=== PATIENT | male | born 1975 | race Caucasian/White ===

== ENCOUNTER 2019-09-21 20:37 | Inpatient (IN) | payer OTHER ==
--- OUTSIDE RECORDS SUMMARY | 2019-09-21 20:39 | XMS REPORT ---
:1975 [facility] Organization [facility] Address [address] [place] [address] [address]. [address] [place] [address] Care Team Providers Name Role Phone Unavailable Unavailable Unavailable Problems This patient has no known problems. Allergies, Adverse Reactions, Alerts This patient has no known allergies or adverse reactions. Medications This patient has no known medications.
[2019-09-21] MEDS ORDERED: ALBUTEROL 2.5 MG/3 ML NEB SOL ONE (21:04)
[2019-09-21 21:13] LABS: Absolute Lymphocytes (CBC) 0.6 K/uL (0.7-4.9); Basophils % 1.2 % (0-1.3); Hematocrit 33.6 % (39.6-49.0); Lymphocytes % 8.1 % (15.3-44.8); RBC Red Blood Cell Count 4.88 M/uL (4.33-5.43)
[2019-09-21 21:29] LABS: Protime INR 1.08
[2019-09-21] MEDS ORDERED: LORAZEPAM 1 MG TABLET ONE (21:32)
[2019-09-21 21:34] LABS: ALT/SGPT 15 U/L (12-78); AST/SGOT 7 U/L (15-37); Albumin 3.8 g/dL (3.4-5.0); Alkaline Phosphatase 69 U/L (45-117); BUN Blood Urea Nitrogen 10 mg/dL (7-18); Bicarbonate 24 mmol/L (21-32); Bilirubin Direct 0.2 mg/dL (0-0.2); Bilirubin Total 0.5 mg/dL (0.2-1.0); CKMB Creatine Kinase MB < 1.0 ng/mL (0.3-3.6); Creatine Phosphokinase 56 U/L (39-308); Glucose Level 316 mg/dL (74-106); Protein, Total 8.4 g/dL (6.4-8.2); Sodium Level 134 mmol/L (136-145)
[2019-09-21 21:41] LABS: Platelet Estimate ADEQ; Urine White Blood Cell Casts OK
[2019-09-21 21:42] LABS: Anisocytosis 1+; Blood Morphology Comment NOTED (NOT SEEN); Hypochromasia 1+
[2019-09-21 22:29] LABS: Lipase 98 U/L (73-393); Magnesium 1.7 mg/dL (1.8-2.4); NT PRO-BNP 1178 pg/mL (<125); Troponin (Emerg Dept Use Only) 0.02 ng/mL (0.0-0.045)
[2019-09-21] MEDS ORDERED: BENZONATATE 100 MG CAP PO ONE (22:51)
--- NOTE | 2019-09-21 23:17 | RAD REPORT ---
EXAM DESCRIPTION: RAD - Chest Single View - 09/21/2019 9:28 pm CLINICAL HISTORY: SOB Chest pain. COMPARISON: No comparisons FINDINGS: Portable technique limits examination quality. Mild nonspecific prominence of interstitial lung markings seen. A mild viral pneumonitis or interstit ial pulmonary edema is possible. The heart is upper limit of normal in size. No displaced fractures.
[2019-09-21] MEDS ORDERED: IBUPROFEN 400 MG TAB ONE (23:45)
--- NOTE | 2019-09-21 23:48 | ER ---
Nurse's Notes [facility] Name: Yan Camargo Age: 44 yrs Sex: Male : 1975 Arrival Date: 09/21/2019 Time: 20:38 Bed 6 Private MD: Diagnosis: Unspecified combined systolic (congestive) and diastolic (congestive) heart failure Presentation: 09/21 20:45 Presenting complaint: Patient states: Reports shortness of breath that started ea yesterday morning, pt states " I took all my medicine thinking it would get better but it got worse" Pt reports non productive cough. Transition of care: patient was not received from another setting of care. Onset of symptoms was September 21, 2019. Risk Assessment: Do you want to hurt yourself or someone else? Patient reports no desire to harm self or others. Initial Sepsis Screen: Does the patient meet any 2 criteria? RR > 20 per min. HR > 90 bpm. Does the patient have a suspected source of infection? No. Patient's initial sepsis screen is negative. Care prior to arrival: None. 20:45 Method Of Arrival: Ambulatory ea 20:45 Acuity: MARTIR 3 ea Triage Assessment: 21:09 General: Appears uncomfortable, Behavior is appropriate for age. Pain: Denies pain. ea Respiratory: Reports shortness of breath since yesterday morning, reports SOB gets worse when he coughs Onset: The symptoms/episode began/occurred this morning, the patient has mild shortness of breath. Derm: Skin is pink, warm \\T\\ dry. Historical: - Allergies: 21:15 No Known Allergies; ea - Home Meds: 21:15 ProAir HFA 90 mcg/actuation inhalation HFAA [Active]; nitroglycerin 0.4 mg SL subl as ea needed [Active]; Livalo 4 mg oral tab 1 tab once daily [Active]; Levemir FlexTouch 100 unit/mL (3 mL) subcutaneous inpn [Active]; Ranitidine Oral [Active]; Descovy 200-25 mg oral tab 1 tab once daily [Active]; potassium chloride 10 mEq Oral cpER 1 cap once daily [Active]; metformin 1,000 mg Oral tab 1 tab 2 times per day [Active]; Lasix 10 mg tab Oral 1 tab once daily [Active]; rosuvastatin 40 mg oral tab 1 tab once daily [Active]; promethazine 25 mg Oral tab 1 tab once daily [Active]; rosuvastatin 40 mg oral tab 1 tab once daily [Active]; - PMHx: 21:15 CHF; Diabetes - IDDM; ea - PSHx: 21:15 None; ea - Immunization history:: Adult Immunizations up to date. - Coronavirus screen:: The patient has NOT traveled to [place], [place], or [place] in the past 14 days. - Social history:: Smoking status: Patient reports the use of cigarette tobacco products, smokes one pack cigarettes per day. - Ebola Screening: : No symptoms or risks identified at this time. Screenin:08 Abuse screen: Denies threats or abuse. Nutritional screening: No deficits noted. ea Tuberculosis screening: No symptoms or risk factors identified. Fall Risk IV access (20 points). Assessment: 21:15 General: Appears uncomfortable, Behavior is appropriate for age. Pain: Denies pain. ea Neuro: Level of Consciousness is awake, alert, obeys commands, Oriented to person, place, time, situation. Cardiovascular: Patient's skin is warm and dry. Rhythm is sinus tachycardia. Respiratory: Airway is patent Respiratory effort is even, unlabored, Respiratory pattern is tachypnea Breath sounds with crackles in left posterior lower lobe and right posterior middle lobe. Derm: Skin is pink, warm \\T\\ dry. 21:37 Reassessment: D dimer 742 simon from laboratory called, ED provider aware. rr5 21:53 Reassessment: Patient and/or family updated on plan of care and expected duration. Pain ea level reassessed. Patient is alert, oriented x 3, equal unlabored respirations, skin warm/dry/pink. Pt taken to CT. 22:07 Reassessment: Patient and/or family updated on plan of care and expected duration. Pain ea level reassessed. Patient is alert, oriented x 3, equal unlabored respirations, skin warm/dry/pink. Pt returned from CT. 23:27 Reassessment: Patient and/or family updated on plan of care and expected duration. Pain ea level reassessed. Patient is alert, oriented x 3, equal unlabored respirations, skin warm/dry/pink. 09/22 00:16 Reassessment: Patient and/or family updated on plan of care and expected duration. Pain ea level reassessed. Patient is alert, oriented x 3, equal unlabored respirations, skin warm/dry/pink. Hospitalist at bedside updating pt on plan of care. 01:59 Reassessment: Patient and/or family updated on plan of care and expected duration. Pain ea level reassessed. Patient is alert, oriented x 3, equal unlabored respirations, skin warm/dry/pink. Report called to Urvashi REDDING. 02:12 Reassessment: Patient and/or family updated on plan of care and expected duration. Pain ea level reassessed. Patient is alert, oriented x 3, equal unlabored respirations, skin warm/dry/pink. Pt admitted to fourth floor, pt left ED via wheelchair tolerating well. No s/s of pain or discomfort noted at this time. Vital Signs: 09/21 21:07 BP 147 / 84; Pulse 124; Resp 21; Temp 99.1; Pulse Ox 97% ; Weight 99.79 kg; Height 5 ea ft. 6 in. (167.64 cm); Pain 0/10; 22:36 BP 140 / 76; Pulse 118; Resp 24; Pulse Ox 98% on 2 lpm NC; ea 23:30 Pulse 120; Resp 24; Temp 100.4; ea 09/22 00:05 BP 142 / 88; Pulse 118; Resp 24; Pulse Ox 95% on 2 lpm NC; ea 00:53 Temp 99.3; ea 01:48 BP 111 / 70; Pulse 110; Resp 20; Pulse Ox 95% on R/A; ea 09/21 21:07 Body Mass Index 35.51 (99.79 kg, 167.64 cm) ea ED Course: 09/21 20:38 Patient arrived in ED. jg7 20:47 Dakota Cummins MD is Attending Physician. tw4 21:00 Inserted saline lock: 20 gauge in right antecubital area, using aseptic technique. rr5 Blood collected. 21:04 Mague Colon, VAHID is Primary Nurse. ea 21:07 Triage completed. ea 21:08 Patient has correct armband on for positive identification. Placed in gown. Bed in low ea position. Call light in reach. Side rails up X2. 21:09 Arm band placed on right wrist. Patient placed in an exam room, on a stretcher, on ea pulse oximetry. 21:18 Radiology exam delayed due to lab results not completed at this time. (BUN/Creatinine). mw3 21:18 EKG done, by ED staff, reviewed by Dakota Cummins MD. rr5 21:32 XRAY CXR (1 view) In Process Unspecified. EDMS 23:02 CT Chest For PE Angio In Process Unspecified. EDMS 23:47 Tucker Dixon is Hospitalizing Provider. tw4 09/22 01:43 No provider procedures requiring assistance completed. Patient admitted, IV remains in ea place. Administered Medications: 09/21 21:10 Drug: Albuterol 1.25 mg Route: Inhalation; rr5 21:30 Drug: Ativan 1 mg Route: PO; ea 22:30 Follow up: Response: No adverse reaction; Anxiety decreased ea 22:49 Drug: Tessalon Perle 100 mg Route: PO; rr5 23:30 Follow up: Response: No adverse reaction ea 23:51 Drug: Lasix 40 mg Route: IVP; Site: right antecubital; ea 09/22 01:49 Follow up: Urine output 600 ml; Response: No adverse reaction ea 09/21 23:52 Drug: Motrin 400 mg Route: PO; ea 09/22 01:50 Follow up: Response: No adverse reaction ea Output: 01:49 Urine: 600ml; Total: 600ml. ea Outcome: 09/21 23:48 Decision to Hospitalize by Provider. tw 09/22 01:48 Instructed on the need for admit, Demonstrated understanding of instructions. ea 02:13 Admitted to Med/surg accompanied by tech, via wheelchair, room 426, with chart, Report ea called to Urvashi REDDING 02:13 Condition: stable 02:13 Patient left the ED. ea Signatures: Dispatcher [employer] EDLA Mague Colon RN Dakota Rios ea, MD MD tw4 Inés Branham mw3 Damion Giron RN RN rr5 Julia Delongg7
--- NOTE | 2019-09-21 23:49 | EDPHYS ---
Physician Documentation [facility] Name: Yan Camargo Age: 44 yrs Sex: Male : 1975 Arrival Date: 09/21/2019 Time: 20:38 Bed 6 Private MD: ED Physician Dakota Cummins HPI: 09/22 05:47 This 44 yrs old Male presents to ER via Ambulatory with complaints of Breathing tw4 Difficulty. Historical: - Allergies: 09/21 21:15 No Known Allergies; ea - Home Meds: 21:15 ProAir HFA 90 mcg/actuation inhalation HFAA [Active]; nitroglycerin 0.4 mg SL subl as ea needed [Active]; Livalo 4 mg oral tab 1 tab once daily [Active]; Levemir FlexTouch 100 unit/mL (3 mL) subcutaneous inpn [Active]; Ranitidine Oral [Active]; Descovy 200-25 mg oral tab 1 tab once daily [Active]; potassium chloride 10 mEq Oral cpER 1 cap once daily [Active]; metformin 1,000 mg Oral tab 1 tab 2 times per day [Active]; Lasix 10 mg tab Oral 1 tab once daily [Active]; rosuvastatin 40 mg oral tab 1 tab once daily [Active]; promethazine 25 mg Oral tab 1 tab once daily [Active]; rosuvastatin 40 mg oral tab 1 tab once daily [Active]; - PMHx: 21:15 CHF; Diabetes - IDDM; ea - PSHx: 21:15 None; ea - Immunization history:: Adult Immunizations up to date. - Coronavirus screen:: The patient has NOT traveled to [place], [place], or [place] in the past 14 days. - Social history:: Smoking status: Patient reports the use of cigarette tobacco products, smokes one pack cigarettes per day. - Ebola Screening: : No symptoms or risks identified at this time. ROS: 09/22 05:46 Constitutional: Negative for fever, chills, and weight loss, Eyes: Negative for injury, tw4 pain, redness, and discharge, Neck: Negative for injury, pain, and swelling, Abdomen/GI: Negative for abdominal pain, nausea, vomiting, diarrhea, and constipation, Back: Negative for injury and pain, MS/Extremity: Negative for injury and deformity, Skin: Negative for injury, rash, and discoloration, Neuro: Negative for headache, weakness, numbness, tingling, and seizure. Cardiovascular: Negative for chest pain, edema, orthopnea, palpitations. Respiratory: Positive for dyspnea on exertion, orthopnea, shortness of breath, Negative for cough, hemoptysis, pleurisy. Exam: 05:41 Constitutional: This is a well developed, well nourished patient who is awake, alert, tw4 and in no acute distress. Head/Face: Normocephalic, atraumatic. Chest/axilla: Normal chest wall appearance and motion. Nontender with no deformity. No lesions are appreciated. Cardiovascular: Regular rate and rhythm with a normal S1 and S2. No gallops, murmurs, or rubs. Normal PMI, no JVD. No pulse deficits. 05:41 Back: No spinal tenderness. No costovertebral tenderness. Full range of motion. Skin: Warm, dry with normal turgor. Normal color with no rashes, no lesions, and no evidence of cellulitis. 05:41 Respiratory: mild respiratory distress is noted. Vital Signs: 09/21 21:07 BP 147 / 84; Pulse 124; Resp 21; Temp 99.1; Pulse Ox 97% ; Weight 99.79 kg; Height 5 ea ft. 6 in. (167.64 cm); Pain 0/10; 22:36 BP 140 / 76; Pulse 118; Resp 24; Pulse Ox 98% on 2 lpm NC; ea 23:30 Pulse 120; Resp 24; Temp 100.4; ea 09/22 00:05 BP 142 / 88; Pulse 118; Resp 24; Pulse Ox 95% on 2 lpm NC; ea 00:53 Temp 99.3; ea 01:48 BP 111 / 70; Pulse 110; Resp 20; Pulse Ox 95% on R/A; ea 09/21 21:07 Body Mass Index 35.51 (99.79 kg, 167.64 cm) ea MDM: 09/21 20:47 Patient medically screened. tw4 09/22 05:48 Antibiotic administration: Not indicated. Data reviewed: vital signs, nurses notes. tw4 Counseling: I had a detailed discussion with the patient and/or guardian regarding: the historical points, exam findings, and any diagnostic results supporting the discharge/admit diagnosis. Physician consultation: Tucker Dixon regarding admission, to the telemetry unit. patient's condition, and will see patient. Special discussion: I discussed with the patient/guardian in detail that at this point there is no indication for admission to the hospital. It is understood, however, that if the symptoms persist or worsen the patient needs to return immediately for re-evaluation. 09/21 21:00 Order name: Blood Culture Adult (2) tw4 09/21 21:00 Order name: BMP tw4 09/21 21:00 Order name: CBC with Diff tw4 09/21 21:00 Order name: Ckmb tw4 09/21 21:00 Order name: CPK tw4 09/21 21:00 Order name: D-Dimer tw4 09/21 21:00 Order name: Hepatic Function 09/21 21:00 Order name: Lipase tw4 09/21 21:00 Order name: Magnesium tw4 09/21 21:00 Order name: NT PRO-BNP tw4 09/21 21:00 Order name: PT-INR 4 09/21 21:00 Order name: Ptt, Activated tw4 09/21 21:00 Order name: Troponin (emerg Dept Use Only) tw4 09/21 21:12 Order name: Blood Culture EDMD 09/21 21:12 Order name: Basic Metabolic Panel; Complete Time: 23:41 EDMS 09/21 23:41 Interpretation: Normal except: NA 134; GLUC 316; GFR 63. tw4 09/21 21:12 Order name: CBC with Automated Diff; Complete Time: 23:41 EDMS 09/21 23:41 Interpretation: Normal except: MCV 68.8; HCT 33.6; HGB 9.7; MCH 19.9; MCHC 28.9; RDW tw4 20.2; LYMA 0.6; LYM% 8.1; FLORA% 81.7. 09/21 21:13 Order name: CKMB Creatine Kinase MB; Complete Time: 23:41 EDMS 09/21 21:13 Order name: Creatine Phosphokinase; Complete Time: 23:41 EDMS 09/21 21:13 Order name: D-Dimer; Complete Time: 23:41 EDMS 09/21 23:41 Interpretation: Normal except: D-DIMER 742. tw4 09/21 21:13 Order name: Liver (Hepatic) Function; Complete Time: 23:41 EDMS 09/21 23:41 Interpretation: Normal except: A/G 0.8; GLOB 4.6; TP 8.4; AST 7. tw4 02 21:15 Order name: Protime (+INR); Complete Time: 23:41 EDMS 02 23:41 Interpretation: Normal except: PT 12.7. tw4 09/21 21:15 Order name: PTT, Activated Partial Thromb; Complete Time: 23:41 EDMS 02 21:30 Order name: CBC Smear Scan; Complete Time: 23:41 EDMS 09/21 22:17 Order name: Troponin (Emerg Dept Use Only); Complete Time: 23:41 EDMS 02 21:00 Order name: XRAY CXR (1 view); Complete Time: 23:41 tw4 09/21 21:00 Order name: EKG; Complete Time: 21:15 tw4 09/21 21:00 Order name: Cardiac monitoring; Complete Time: 21:16 tw4 09/21 21:00 Order name: EKG - Nurse/Tech; Complete Time: 21:22 4 09/21 21:00 Order name: IV Saline Lock; Complete Time: 21:16 tw4 02 21:00 Order name: Labs collected and sent; Complete Time: 21:16 4 09/21 21:00 Order name: O2 Per Protocol; Complete Time: 21:16 tw4 09/21 21:00 Order name: O2 Sat Monitoring; Complete Time: 21:16 tw4 09/21 21:00 Order name: CT Chest For PE Angio 09/21 22:17 Order name: NT PRO-BNP; Complete Time: 23:41 EDMS 09/21 23:42 Interpretation: Normal except: NT PRO-BNP 1178. 09/21 22:17 Order name: Magnesium; Complete Time: 23:41 EDMS 09/21 23:42 Interpretation: Within normal limits: MG 1.7. 09/21 22:17 Order name: Lipase; Complete Time: 23:41 EDMS EC:41 Rate is 119 beats/min. Rhythm is regular, Sinus tachycardia. QRS [place] is Normal. [place] tw4 interval is normal. QT interval is normal. No Q waves. T waves are Flattened in leads III, aVL. No ST changes noted. Clinical impression: Abnormal EKG without significant change. Interpreted by me. Reviewed by me. Administered Medications: 09/21 21:10 Drug: Albuterol 1.25 mg Route: Inhalation; rr5 21:30 Drug: Ativan 1 mg Route: PO; ea 22:30 Follow up: Response: No adverse reaction; Anxiety decreased ea 22:49 Drug: Tessalon Perle 100 mg Route: PO; rr5 23:30 Follow up: Response: No adverse reaction ea 23:51 Drug: Lasix 40 mg Route: IVP; Site: right antecubital; ea 09/22 01:49 Follow up: Urine output 600 ml; Response: No adverse reaction ea 09/21 23:52 Drug: Motrin 400 mg Route: PO; ea 09/22 01:50 Follow up: Response: No adverse reaction ea Disposition: 09/21/19 23:48 Hospitalization ordered by Tucker Dixon for Inpatient Admission. Preliminary diagnosis is Unspecified combined systolic (congestive) and diastolic (congestive) heart failure. - Bed requested for Telemetry/MedSurg (Inpatient). - Status is Inpatient Admission. ea - Condition is Stable. - Problem is an ongoing problem. - Symptoms have worsened. Signatures: Dispatcher [employer] EDMS Christal Quinones, RN RN Mague Colon RN RN ea Wadley, Terrence, MD MD tw4 Damion Giron RN RN rr5 Corrections: (The following items were deleted from the chart) 09/21 21:15 21:14 Protime (+INR) ordered. EDMD EDMS 21:15 21:14 PTT, Activated Partial Thromb ordered. EDMD EDMS 22:16 21:13 Lipase ordered. EDMD EDMS 22:16 21:13 Magnesium ordered. EDMD EDMS 22:17 21:13 NT PRO-BNP ordered. EDMD EDMS 22:17 21:14 Troponin (Emerg Dept Use Only) ordered. EDMD EDMD 09/22 01:21 09/21 23:48 Hospitalization Ordered by Tucker Dixon for Inpatient Admission. Preliminary diagnosis is Unspecified combined systolic (congestive) and diastolic (congestive) heart failure. Bed requested for Telemetry/MedSurg (Inpatient). Status is Inpatient Admission. Condition is Stable. Problem is an ongoing problem. Symptoms have worsened. tw4 09/22 02:13 01:21 09/21/2019 23:48 Hospitalization Ordered by Tucker Dixon for Inpatient ea Admission. Preliminary diagnosis is Unspecified combined systolic (congestive) and diastolic (congestive) heart failure. Bed requested for Telemetry/MedSurg (Inpatient). Status is Inpatient Admission. Condition is Stable. Problem is an ongoing problem. Symptoms have worsened. cg
[2019-09-21] MEDS ORDERED: FUROSEMIDE 40 MG/4 ML VIAL ONE (23:50)
--- NOTE | 2019-09-22 00:40 | P.HP ---
Certification for Inpatient Patient admitted to: Inpatient With expected LOS: <2 Midnights Practitioner: I am a practitioner with admitting privileges, knowledge of patient current condition, hospital course, and medical plan of care. Services: Services provided to patient in accordance with Admission requirements found in Title 42 Section 412.3 of the Code of Federal Regulations Patient History Date of Service: 09/22/19 Reason for admission: Shortness of breath History of Present Illness: 44-year-old morbidly obese gentleman with a history of congestive heart failure , unknown EF, diabetes mellitus type 2, presented to the emergency department with a complaint of shortness of breath of onset yesterday. Symptoms also associated with nonproductive cough. Patient denies any chest pain or palpitation. He also reports intermittent wheezing. In the ED, patient noted to be febrile with temperature up to 100.4. Chest x- ray demonstrates some haziness in the bilateral lower lobes, more on the right. No leukocytosis. D-dimer was elevated. Follow up CTA thorax was negative for pulmonary embolism. The patient is hospitalized for further management. Allergies No Known Allergies Allergy (Verified 09/22/19 02:55) Home Medications: Albuterol Sulfate [Proair Hfa] 2 puff IH BID PRN 09/22/19 Aspirin [Aspir-Low] 81 mg PO DAILY 09/22/19 Cyclobenzaprine [Flexeril*] 10 mg PO TID PRN 09/22/19 Dolutegravir Sodium [Tivicay] 50 mg PO DAILY 09/22/19 Empagliflozin [Jardiance] 25 mg PO DAILY 09/22/19 Emtricitabine/Tenofov Alafenam [Descovy 200-25 mg Tablet] 1 tab PO DAILY Ferrous Sulfate [Ferrous Sulfate*] 325 mg PO DAILY 09/22/19 Fluticasone Propionate [Flovent Diskus] 1 inh IH BID PRN 09/22/19 Furosemide [Lasix] 40 mg PO DAILY 09/22/19 Glimepiride 1 mg PO BID 09/22/19 Insulin Detemir [Levemir Flextouch] 20 units SQ BID 09/22/19 Loratadine [Claritin*] 10 mg PO DAILY 09/22/19 Metformin HCl 1,000 mg PO BID 09/22/19 Nitroglycerin 0.4 mg SL [facility] PRN 09/22/19 Potassium Chloride 10 meq PO DAILY 09/22/19 Promethazine HCl 25 mg PO Q6H PRN 09/22/19 Ranitidine [Zantac*] 150 mg PO DAILY PRN 09/22/19 Rosuvastatin Calcium 40 mg PO BEDTIME 09/22/19 Sitagliptin Phosphate [Januvia*] 100 mg PO DAILY 09/22/19 Tramadol HCl [Ultram] 100 mg PO TID PRN 09/22/19 - Past Medical/Surgical History -: CHF -: DM type 2 - Family History Father -: Diabetes, Stroke, Seizures Brother -: Heart disease, Hypertension Mother -: Heart disease Sister -: Diabetes - Social History Smoking Status: Current every day smoker Alcohol use: Yes CD- Drugs: No Place of Residence: Home Review of Systems Other: General: No unintentional weight loss. Eyes: No eye discharge, CVS: No chest pain, no palpitation, no lightheadedness. GI: No abdominal pain, no nausea no vomit, no constipation, no diarrhea. Genitourinary: No dysuria, no urinary frequency, no incontinence, no hematuria. Musculoskeletal: No joint pains, or joint swelling, no gait instability. Neurology: No headache, no asymmetric weakness, no problem with swallowing. Except as documented, all other systems reviewed and negative. Physical Examination - Physical Exam General: Alert, In no apparent distress, Oriented x3, Obese Neck: Supple, JVD not distended Respiratory: Normal air movement, Diminished, Expiratory wheezes Cardiovascular: No edema, Normal S1 S2, Other (Tachycardic, regular rhythm.) Capillary refill: <2 Seconds Gastrointestinal: Normal bowel sounds, Soft and benign, Non-distended, No tenderness Musculoskeletal: No swelling, No erythema Integumentary: No rashes, No erythema Neurological: Normal speech, Normal strength at 5/5 x4 extr - Studies Laboratory Data (last 24 hrs) 09/21/19 21:00: PT Cancelled, INR Cancelled, APTT Cancelled 09/21/19 21:00: Magnesium Cancelled, Lipase Cancelled 09/21/19 21:00: PT 12.7 H, INR 1.08, APTT 25.8 09/21/19 21:00: WBC 7.1, Hgb 9.7 L, Hct 33.6 L, Plt Count 152 09/21/19 21:00: Sodium 134 L, Potassium 4.0, BUN 10, Creatinine 1.24, Glucose 316 H, Magnesium 1.7 L, Total Bilirubin 0.5, AST 7 L, ALT 15, Alkaline Phosphatase 69, Lipase 98 Assessment and Plan - Problems (Diagnosis) (1) Pneumonia Current Visit: Yes Status: Acute (2) CHF (congestive heart failure) Current Visit: Yes Status: Acute (3) DM type 2 (diabetes mellitus, type 2) Current Visit: Yes Status: Chronic (4) Hyperlipidemia Current Visit: Yes Status: Chronic - Plan Place under observation. Start IV Rocephin and Zithromax. Chest physiotherapy Will give extra dose of IV Lasix. Obtain echocardiogram. Supplemental oxygen as needed Bronchodilators. Hold metformin Manage blood sugar with insulin sliding scale. - Advance Directives Does patient have a Living Will: No Does patient have a Durable POA for Healthcare: No
[2019-09-22] MEDS ORDERED: ONDANSETRON 4 MG/2 ML VIAL IV PRN (02:24)
[2019-09-22] MEDS ORDERED: FUROSEMIDE 40 MG/4 ML VIAL IV ONE (02:24)
[2019-09-22] MEDS ORDERED: ALBUTEROL 2.5 MG/3 ML NEB SOL NEB PRN (02:24)
[2019-09-22] MEDS ORDERED: ACETAMINOPHEN 500 MG TAB PO PRN (02:24)
[2019-09-22 02:26] VITALS: BMI 34.6
[2019-09-22] MEDS ORDERED: MAGNESIUM SULFATE 1 gm IVPB 1 GM/100 ML BAG IV ONE (02:53)
[2019-09-22] MEDS: IPRATROPIUM BROM 0.5MG/2.5ML NEB SCH ×5 (03:35→19:50)
[2019-09-22] MEDS: INSULIN -REGULAR HUMAN 50 UNIT/0.5 ML ML SQ SCH ×5 (03:44→21:13)
[2019-09-22] MEDS: GUAIFENESIN/CODEINE 5ML UCUP PO PRN ×2 (04:38→23:46)
--- NOTE | 2019-09-22 06:25 | EKG ---
Test Date: 2019-09-21 Test Time: 21:21:54 [employer] Coordinator: NEO MEASUREMENT RESULTS: Intervals: Rate: 119 NM: 162 QRSD: 70 QT: 330 QTc: 464 [place]: P: 48 NM: 162 QRS: 6 T: 42 INTERPRETIVE STATEMENTS: Sinus tachycardia Possible Left atrial enlargement Anteroseptal infarct, age undetermined Abnormal ECG No previous ECG available for comparison Electronically Signed On 09-22-19 06:24:36 [employer] by Angel Ritchie
[2019-09-22] MEDS ORDERED: FUROSEMIDE 40 MG/4 ML VIAL ONE (06:44)
[2019-09-22] MEDS ORDERED: METOPROLOL TARTRATE 5 MG/5 ML INJ IV STA (06:53)
[2019-09-22] MEDS ORDERED: METOPROLOL TARTRATE 5 MG/5 ML INJ IV ONE (06:59)
--- NOTE | 2019-09-22 07:09 | P.PN ---
Date of Service: 09/22/19 Rapid response called on the patient because he was in acute respiratory distress. On examination Patient sitting on the edge of the bed in respiratory distress, with nebulizer on. Diffuse wheezes heard on auscultation of the lungs. Patient is tachycardic, heart rate in the 130s BP 168/84. Plan: BIPAP Repeat IV Lasix 40 mg x1 dose. IV metoprolol x 1 for hypertension and tachycardia. Nebulizer treatment. Obtain ABG.
[2019-09-22] MEDS: ENOXAPARIN 40 MG/0.4 ML SQ SCH (07:59)
[2019-09-22 08:16] LABS: Arterial Blood Carboxyhemoglob 0.9 % (0-1.5); Blood Gas Oxyhemoglobin 92.2 % (94-97); Blood O2 Saturation 93.4 % (92-98.5)
[2019-09-22] MEDS ORDERED: CEFTRIAXONE 1 GM/NS 50 ML 1 GM/50 ML BAG IV SCH (09:00)
[2019-09-22] MEDS ORDERED: CEFTRIAXONE/SWI 1gm 1 GM/10 ML SYR IVP SCH (09:00)
[2019-09-22] MEDS ORDERED: RANITIDINE 150 MG TABLET PO PRN (10:07)
[2019-09-22] MEDS ORDERED: TRAMADOL HCL 50 MG TAB PO PRN (10:07)
[2019-09-22] MEDS ORDERED: TMP IVPB SCH ×2 (10:16→22:00)
[2019-09-22] MEDS ORDERED: SMZ IVPB SCH ×2 (10:16→22:00)
[2019-09-22] MEDS ORDERED: D5W IVPB SCH (10:16)
--- NOTE | 2019-09-22 10:22 | P.PN ---
Subjective Date of Service: 09/22/19 Chief Complaint: Shortness of breath Subjective: No C/O voiced, New changes (-developed worsneing SOB earliert today , given lasix and feels better now -still midly dyspneic -still feels fatigue) Review of Systems 10-point ROS is otherwise unremarkable Physical Examination - Vital Signs Temperature: 99.2 F Blood Pressure: 133/82 Pulse: 120 Respirations: 28 Pulse Ox (%): 97 - Physical Exam General: Alert, Oriented x3, Cooperative, Mild distress, Obese HEENT: Atraumatic, Normocephalic, PERRLA Neck: Supple, 2+ carotid pulse no bruit Respiratory: Diminished, Crackles/rales, Expiratory wheezes (right base ) Cardiovascular: No edema, Regular rate/rhythm, Normal S1 S2 Gastrointestinal: Normal bowel sounds, Soft and benign, Non-distended Musculoskeletal: No clubbing, No swelling Integumentary: No rashes, No breakdown Neurological: Normal speech, Normal strength at 5/5 x4 extr, Normal tone - Studies Laboratory Data (last 24 hrs) 09/21/19 21:00: PT Cancelled, INR Cancelled, APTT Cancelled 09/21/19 21:00: Magnesium Cancelled, Lipase Cancelled 09/21/19 21:00: PT 12.7 H, INR 1.08, APTT 25.8 09/21/19 21:00: WBC 7.1, Hgb 9.7 L, Hct 33.6 L, Plt Count 152 09/21/19 21:00: Sodium 134 L, Potassium 4.0, BUN 10, Creatinine 1.24, Glucose 316 H, Magnesium 1.7 L, Total Bilirubin 0.5, AST 7 L, ALT 15, Alkaline Phosphatase 69, Lipase 98 Laboratory Last Values WBC 7.1 K/uL (4.3-10.9) 09/21/19 21:00 RBC 4.88 M/uL (4.33-5.43) 09/21/19 21:00 Hgb 9.7 g/dL (13.6-17.9) L 09/21/19 21:00 Hct 33.6 % (39.6-49.0) L 09/21/19 21:00 MCV 68.8 fL (80-100) L 09/21/19 21:00 MCH 19.9 pg (27.0-35.0) L 09/21/19 21:00 MCHC 28.9 g/dL (32.0-36.0) L 09/21/19 21:00 RDW 20.2 % (12.1-15.2) H 09/21/19 21:00 Plt Count 152 K/uL (152-406) 09/21/19 21:00 MPV 9.0 fL (7.6-11.3) 09/21/19 21:00 Neutrophils % 81.7 % (41.7-73.7) H 09/21/19 21:00 Lymphocytes % 8.1 % (15.3-44.8) L 09/21/19 21:00 Monocytes % 8.6 % (3.3-12.3) 09/21/19 21:00 Eosinophils % 0.4 % (0-4.4) 09/21/19 21:00 Basophils % 1.2 % (0-1.3) 09/21/19 21:00 Absolute Neutrophils 5.8 K/uL (1.8-8.0) 09/21/19 21:00 Absolute Lymphocytes 0.6 K/uL (0.7-4.9) L 09/21/19 21:00 Absolute Monocytes 0.6 K/uL (0.1-1.3) 09/21/19 21:00 Absolute Eosinophils 0.0 K/uL (0-0.5) 09/21/19 21:00 Absolute Basophils 0.1 K/uL (0-0.5) 09/21/19 21:00 Hypochromasia 1+ 09/21/19 21:00 Anisocytosis 1+ 09/21/19 21:00 Microcytosis 1+ 09/21/19 21:00 Morphology Comment Noted (NOT SEEN) 09/21/19 21:00 PT 12.7 SECONDS (9.5-12.5) H 09/21/19 21:00 INR 1.08 09/21/19 21:00 APTT 25.8 SECONDS (24.3-36.9) 09/21/19 21:00 D-Dimer 742 FEUng/mL (<500) H* 09/21/19 21:00 pH 7.40 (7.35-7.45) 09/22/19 07:35 pCO2 39.5 mmHG (35-45) 09/22/19 07:35 pO2 83.9 mmHG (75-100) 09/22/19 07:35 HCO3 24.0 mmol/L (22-28) 09/22/19 07:35 Base Excess -0.2 mmol/L 09/22/19 07:35 Oxyhemoglobin 92.2 % (94-97) L 09/22/19 07:35 ABG O2 Sat (Measured) 93.4 % (92-98.5) 09/22/19 07:35 ABG Carboxyhemoglobin 0.9 % (0-1.5) 09/22/19 07:35 ABG Methemoglobin 0.4 % (0-1.5) 09/22/19 07:35 Other Total Hgb 9.6 g/dl (12-18) L 09/22/19 07:35 Inspired O2 40.0 % 09/22/19 07:35 Sodium 134 mmol/L (136-145) L 09/21/19 21:00 Potassium 4.0 mmol/L (3.5-5.1) 09/21/19 21:00 Chloride 101 mmol/L (98-107) 09/21/19 21:00 Carbon Dioxide 24 mmol/L (21-32) 09/21/19 21:00 BUN 10 mg/dL (7-18) 09/21/19 21:00 Creatinine 1.24 mg/dL (0.55-1.3) 09/21/19 21:00 Estimated GFR 63 mL/min (=/>90) L 09/21/19 21:00 Glucose 316 mg/dL (74-106) H 09/21/19 21:00 POC Glucose 399 mg/dl (65-120) H 09/22/19 07:40 Lactic Acid 2.0 mmol/L (0.4-2.0) 09/22/19 09:18 Calcium 8.5 mg/dL (8.5-10.1) 09/21/19 21:00 Magnesium 1.7 mg/dL (1.8-2.4) L 09/21/19 21:00 Total Bilirubin 0.5 mg/dL (0.2-1.0) 09/21/19 21:00 Direct Bilirubin 0.2 mg/dL (0-0.2) 09/21/19 21:00 AST 7 U/L (15-37) L 09/21/19 21:00 ALT 15 U/L (12-78) 09/21/19 21:00 Alkaline Phosphatase 69 U/L (45-117) 09/21/19 21:00 Creatine Kinase 56 U/L (39-308) 09/21/19 21:00 CK-MB (CK-2) < 1.0 ng/mL (0.3-3.6) 09/21/19 21:00 Rapid Troponin I 0.02 ng/mL (0.0-0.045) 09/21/19 21:00 NT-Pro-B Natriuret Pep 1178 pg/mL (<125) H 09/21/19 21:00 Serum Total Protein 8.4 g/dL (6.4-8.2) H 09/21/19 21:00 Albumin 3.8 g/dL (3.4-5.0) 09/21/19 21:00 Globulin 4.6 g/dL (2.3-3.5) H 09/21/19 21:00 Albumin/Globulin Ratio 0.8 (1.1-1.8) L 09/21/19 21:00 Lipase 98 U/L (73-393) 09/21/19 21:00 Assessment & Plan - Problems (Diagnosis) (1) CHF (congestive heart failure) Current Visit: Yes Status: Acute Qualifiers: Heart failure type: end stage Qualified Code(s): I50.84 - End stage heart failure (2) DM type 2 (diabetes mellitus, type 2) Current Visit: Yes Status: Acute (3) Hyperlipidemia Current Visit: Yes Status: Acute (4) Pneumonia Current Visit: Yes Status: Acute Physician Review: Patient Assessed, Agree with Above Assessment and Plan Physician Review Additional Text: # bilateral pneumonia-giving history of HIV possibility of PCP pneumonia considered -will switch antibiotics from Rocephin to Zosyn/Bactrim/Levaquin -follow blood culture -Tera mildly dyspneic, we had duo nebs Q 4 as well as Mucomyst -continue cough regimen -will consult ID -obtain CD4 count # history of CHF-symptoms may be due to pneumonia rather than CHF exacerbation -will continue Lasix but increased to 40 mg b.i.d. for now # Diabetes mellitus-elevated glucose, restart home regimen with insulin and oral hypoglycemics -continue insulin sliding scale -will dose 15 units for glucose of 410 now -may need dose adjustment given IV steroids # HIV -restart home regime now # advanced directives-full code # Dispo- possible hospital stay for more than 48 hr
--- NOTE | 2019-09-22 11:13 | EKG ---
Test Date: 2019-09-22 Test Time: 06:49:01 Museum Educator: KARINA MEASUREMENT RESULTS: Intervals: Rate: 142 AR: 114 QRSD: 86 QT: 302 QTc: 464 Stetson: P: 48 AR: 114 QRS: 0 T: 65 INTERPRETIVE STATEMENTS: Sinus tachycardia Possible Left atrial enlargement Anteroseptal infarct, age undetermined Abnormal ECG Compared to ECG 09/21/2019 21:21:54 No significant changes Electronically Signed On 09-22-19 11:12:52 BOX STAPLER by Angel Ritchie
[2019-09-22] MEDS: levoFLOXacin 750 MG TAB PO SCH (11:24)
[2019-09-22] MEDS: ACETYLCYST 20% 4 ML VIAL IH SCH ×2 (11:45→19:50)
[2019-09-22] MEDS: PIPER/TAZO/NS 3.375gm 3.375 GM/100 ML BAG IVPB SCH ×3 (12:00→23:46)
[2019-09-22] MEDS: FUROSEMIDE 20 MG/ 2ML VIAL IV SCH (16:34)
[2019-09-22] MEDS ORDERED: ROSUVASTATIN 10 MG TAB PO SCH (21:00)
[2019-09-22] MEDS ORDERED: HOME MED 1 EA UNK (Metformin Hcl [Metformin Hcl] 1,000 MG) PO SCH (21:00)
[2019-09-22] MEDS ORDERED: HOME MED 1 EA UNK (Glimepiride [Glimepiride] 1 MG) PO SCH (21:00)
[2019-09-22] MEDS: METFORMIN HCL 500 MG TAB PO SCH ×2 (21:00→21:11)
[2019-09-22] MEDS ORDERED: ROSUVASTATIN CALCIUM 40 MG PO SCH (21:00)
[2019-09-22] MEDS: GLIMEPIRIDE 2 MG TABLET PO SCH (21:11)
[2019-09-22] MEDS: INSULIN GLARGINE 100 UNITS/ML SQ SCH (21:13)
[2019-09-22] MEDS ORDERED: DEXTROSE IVPB SCH (22:00)
[2019-09-22] MEDS ORDERED: WATER IVPB SCH (22:00)
[2019-09-23] MEDS: IPRATROPIUM BROM 0.5MG/2.5ML NEB SCH ×4 (00:25→12:25)
[2019-09-23 04:12] LABS: Absolute Lymphocytes (CBC) 1.4 K/uL (0.7-4.9); Basophils % 0.8 % (0-1.3); Hematocrit 31.4 % (39.6-49.0); Lymphocytes % 26.6 % (15.3-44.8); MPV 8.8 fL (7.6-11.3); RBC Red Blood Cell Count 4.66 M/uL (4.33-5.43)
[2019-09-23 04:27] LABS: Albumin 3.4 g/dL (3.4-5.0); Bilirubin Total 0.4 mg/dL (0.2-1.0); Magnesium 2.1 mg/dL (1.8-2.4); Phosphorus 3.4 mg/dL (2.5-4.9); Potassium 3.8 mmol/L (3.5-5.1); Protein, Total 7.8 g/dL (6.4-8.2)
[2019-09-23] MEDS ORDERED: POTASSIUM CL SA 10 MEQ TAB PO ONE (04:34)
[2019-09-23] MEDS ORDERED: TMP IVPB SCH ×4 (05:00)
[2019-09-23] MEDS ORDERED: SMZ IVPB SCH ×4 (05:00)
[2019-09-23] MEDS ORDERED: DEXTROSE IVPB SCH ×4 (05:00)
[2019-09-23] MEDS ORDERED: WATER IVPB SCH ×4 (05:00)
[2019-09-23] MEDS: PIPER/TAZO/NS 3.375gm 3.375 GM/100 ML BAG IVPB SCH ×3 (05:20→16:59)
[2019-09-23] MEDS: METFORMIN HCL 500 MG TAB PO SCH (07:07)
[2019-09-23] MEDS: ENOXAPARIN 40 MG/0.4 ML SQ SCH (07:35)
[2019-09-23] MEDS: levoFLOXacin 750 MG TAB PO SCH (07:36)
[2019-09-23] MEDS: GLIMEPIRIDE 2 MG TABLET PO SCH (07:36)
[2019-09-23] MEDS: FUROSEMIDE 20 MG/ 2ML VIAL IV SCH ×2 (07:49→17:00)
[2019-09-23] MEDS: INSULIN -REGULAR HUMAN 50 UNIT/0.5 ML ML SQ SCH ×3 (07:50→16:58)
[2019-09-23] MEDS: INSULIN GLARGINE 100 UNITS/ML SQ SCH (07:51)
[2019-09-23] MEDS: ACETYLCYST 20% 4 ML VIAL IH SCH (08:50)
[2019-09-23] MEDS ORDERED: EMTRICITABINE PO SCH (09:00)
[2019-09-23] MEDS ORDERED: FERROUS SULFATE 325 MG TAB PO SCH (09:00)
[2019-09-23] MEDS ORDERED: TENOFOV ALAFENAM PO SCH (09:00)
[2019-09-23] MEDS ORDERED: SITAGLIPTIN PHOS 100 MG TAB PO SCH (09:00)
[2019-09-23] MEDS ORDERED: DOLUTEGRAVIR SODIUM 50 MG PO SCH (09:00)
[2019-09-23] MEDS ORDERED: HOME MED 1 EA UNK (Empagliflozin [Jardiance] 25 MG) PO SCH (09:00)
[2019-09-23] MEDS ORDERED: POTASSIUM CL SA 10 MEQ TAB PO SCH (09:00)
--- NOTE | 2019-09-23 11:00 | RAD REPORT ---
EXAM DESCRIPTION: Chest For Pe Angio CLINICAL HISTORY: SOB COMPARISON: None Available. TECHNIQUE: CTA of the chest obtained following the uncomplicated intravenous administration of . 3-D /MIP reformatted images of the chest available for evaluation. FINDINGS: Chest: Pulmonary arteries: Contrast bolus is adequate.No filling defects identified in the pulmonary arterie s to suggest pulmonary embolus. Respiratory motion artifact makes evaluation of the subsegmental pulm onary arterial branches is suboptimal. Thyroid: No abnormalities of the visualized thyroid. Great Vessels: Great vessels have normal anatomic configuration. Thoracic Aorta: No abnormalities of the thoracic aorta identified. Heart: No cardiomegaly, significant pericardial effusion, or coronary artery atherosclerosis Lymph Nodes: No enlarged mediastinal lymph nodes identified. Esophagus: No abnormalities of the esophagus identified. Other: No additional findings. Lungs: Scarring or atelectasis in the middle lobe. No confluent lobar consolidation. Pleura: No pleural effusion or pneumothorax. Trachea/Airways: No abnormalities of the visualized trachea or airways. Bones: Mild degenerative change of the spine. Upper Abdomen: Limited images of the upper abdomen demonstrate no definite abnormalities of visualize d portions of the liver, gallbladder, pancreas, spleen, adrenal glands, or kidneys. IMPRESSION: 1. No pulmonary embolus. This exam was performed according to our departmental dose-optimization program, which includes autom ated exposure control, adjustment of the mA and/or kV according to patient size and/or use of iterati ve reconstruction technique. Electronically signed by: Ellis Bro 09/21/2019 11:00 PM BLEACH ANALYST Due to temporary technical issues with the PACS/Fluency reporting system, reports are being signed by the in house radiologist as a courtesy to ensure prompt reporting. The interpreting radiologist is f ully responsible for the content of the report.
[2019-09-23] MEDS: SMZ./TMP. 800/160 MG TABLET PO SCH ×2 (11:30→13:25)
[2019-09-23 12:11] VITALS: TEMP 98
--- NOTE | 2019-09-23 13:58 | P.PN ---
Subjective Date of Service: 09/23/19 Primary Care Provider: unknown Chief Complaint: Shortness of breath Subjective: No new changes, Doing well Review of Systems General: Unremarkable Eyes: Unremarkable Respiratory: Unremarkable Cardiovascular: Unremarkable Gastrointestinal: Unremarkable Genitourinary: Unremarkable Musculoskeletal: Unremarkable Integumentary: Unremarkable Neurological: Unremarkable Physical Examination - Vital Signs Temperature: 98.0 F Blood Pressure: 115/73 Pulse: 94 Respirations: 17 Pulse Ox (%): 93 - Physical Exam General: Alert, In no apparent distress, Oriented x3, Cooperative HEENT: Atraumatic, Normocephalic, PERRLA, Mucous membr. moist/pink, EOMI Neck: Supple, 2+ carotid pulse no bruit Respiratory: Clear to auscultation bilaterally, Normal air movement Cardiovascular: Normal pulses, Regular rate/rhythm Gastrointestinal: Normal bowel sounds, Soft and benign, Non-distended Musculoskeletal: No clubbing, No swelling, No tenderness Integumentary: No rashes, No breakdown Neurological: Normal gait, Normal speech, Normal strength at 5/5 x4 extr Assessment And Plan - Current Problems (Diagnosis) (1) Pneumonia Current Visit: Yes Status: Acute (2) CHF (congestive heart failure) Current Visit: Yes Status: Acute (3) DM type 2 (diabetes mellitus, type 2) Current Visit: Yes Status: Chronic (4) Hyperlipidemia Current Visit: Yes Status: Chronic - Plan Patient was admitted for pneumonia. He is doing much better. He probably can be discharged soon once ID physician see the patient # bilateral pneumonia -giving history of HIV possibility of PCP pneumonia considered -C/W Zosyn/Bactrim/Levaquin -Neg blood culture -No resp distress -continue cough regimen -Waiting for ID input -obtain CD4 count # Possible CHF exacerbation -symptoms may be due to pneumonia rather than CHF exacerbation -will continue Lasix but increased to 40 mg b.i.d. for now # Diabetes mellitus-elevated glucose, restart home regimen with insulin and oral hypoglycemics -continue insulin sliding scale -On insulin lantus 20 units for glucose of 410 now -may need dose adjustment given IV steroids # HIV -restart home regime now # advanced directives-full code # Dispo- possible hospital stay for more than 48 hr Discharge Plan: Home - Code Status/Comfort Care Code Status Assessed: Yes Code Status: Full Code Physician Review: Patient Assessed, Agree with Above Assessment and Plan
[2019-09-23 15:47] VITALS: O2SAT 95
[2019-09-23] MEDS ORDERED: ALBUTEROL 2.5 MG/3 ML NEB SOL NEB PRN (16:00)
[2019-09-23 17:01] VITALS: BP 127/72
--- NOTE | 2019-09-23 19:52 | CON ---
History Of Present Illness: Patient is sitting in chair. I was consulted for evaluation of pneumoni a and HIV. Patient has been on HIV medication for several years now and followed at [facility] by Modesto mckeon, physician clerical dentist assistant. Patient denies any headache, nausea, vomiting, chest pain, abdominal pain, c onstipation, or diarrhea. Feels much better since he has been on treatment for his pneumonia. Patialexandra fritz initially came to the emergency room for nonproductive cough with fever of 100.4. X-ray shows abigail ateral lower lobe haziness more on the right side with no leukocytosis. Social History: Nonsmoker, nondrinker. Family History: Noncontributory. Past Medical History: HIV, pneumonia, diabetes mellitus, morbid obesity, congestive heart failure, d iabetes mellitus. Family History: Hypertension, seizure disorder, stroke. Social History: Tobacco positive. Alcohol positive. Medications: Include albuterol, ferrous sulfate, Lasix, Amaryl, Robitussin AC, Levaquin, Glucophage, Zosyn, Bactrim. Allergies: NO KNOWN DRUG ALLERGIES. Review of Systems: 10-point review was performed. Physical Examination: General: This is a 44-year-old male, sitting in easy chair, not in any acute cardiopulmonary distres s. Vital Signs: Temperature 98, pulse 94, respirations 17, blood pressure 115/73. HEENT: Unremarkable. Neck: Supple. Lungs: Basal crackles. Heart: S1, S2. Regular. Abdomen: Soft, nontender. Bowel sounds present. Extremities: No edema. Laboratory Data: Shows WBC 5.1, hemoglobin 9.4, platelets 136. Chemistry shows sodium 137, potassiu m 3.08, chloride 101, bicarb 31, BUN 15, creatinine 1, glucose 120, albumin is 3.4. Cultures, no sameera wth for 24 hours. Chest x-ray shows mild nonspecific prominence. The interstitial lung marking mild viral pneumonitis or interstitial pulmonary edema is possible. CT scan of the chest from day before yesterday, no pulmonary embolus. No specific infiltrate described either. Assessment And Plan: A 44-year-old male with significant history of human immunodeficiency virus, CD 4 count not available at this time. Continue Bactrim. We will recommend also to add Levaquin and fo llow up with his primary care at [facility]. Discontinue IV antibiotic. Continue supportive ca re and respiratory care. We will follow the patient as needed. NF/MODL Voice ID: [id number] Report ID: [id number]
--- NOTE | 2019-09-24 01:59 | DS ---
Date of Discharge: 09/23/2019 Hospital Course: This patient is a 44-year-old gentleman, who presents for shortness of breath. He has a history of congestive heart failure, type 2 diabetes, HIV infection. In the ED, he was found to have a temperature up to 100.4. Chest x-ray demonstrated some haziness in the bilateral lower lobes. D- dimer was elevated. However, chest CTA was negative for PE. The patient was admitted for pneumonia. He was treated with IV Rocephin and azithromycin. IV Bactrim was added in the setting of HIV infection. He has been getting much better regarding to his breathing. No more fever or chills. Oxygen was maintained above 92% on room air. Infectious Disease physician was consulted and recommended to discharge the patient. The patient was instructed to follow ID in 2 weeks. He was given oral Levaquin and Bactrim on discharge. Physical Examination: General: On discharge, the patient awake, alert, in no acute distress. Vital Signs: Temperature 98, pulse 94, respiratory rate 17, blood pressure 115/ 73. HEENT: Unremarkable. Chest: Clear to auscultation. No wheezing. Heart: Normal S1, S2. Regular rhythm and rate. No murmur. Abdomen: Soft, nontender, obese. Extremities: No edema, no cyanosis. Neuro: Patient awake and alert. Nonfocal. Laboratory Data: On discharge, WBC 5.1, hemoglobin 9.4, platelet 136. Sodium 137, potassium 3.8, glucose 120, triglyceride 236, cholesterol 118. Discharge Diagnoses: 1. Pneumonia. 2. Congestive heart failure exacerbation. 3. Type 2 diabetes. 4. Human immunodeficiency virus infection. 5. Hyperlipidemia. Discharge Medications: 1. Levaquin 5 mg daily for 10 days. 2. Bactrim 1 tablet b.i.d. for 10 days or according to ID. For the rest including HIV meds, please see discharge medication list. Discharge Instructions: 1. Please follow ID physician in 1 or 2 weeks. 2. Please follow up PCP in 1 week. 3. Please call emergency room if having fever, chills, or shortness of breath. I spent at least 30 minutes for discharge including education, reviewing chart, and discharge summary. QT/MODL Voice ID: [id number] Report ID: [id number] YANETH
== END 2019-09-23 17:05 | disposition home or self-care (01) | DRG 193 ==
LOC: ER 20:37 → ERHOLD 09-22 00:50 → 4TH 09-22 02:01 → OBSVTOIN 09-22 15:20
PROVIDERS: ADMIT Internal Medicine; ATTEND Internal Medicine
DX: J18.9 Pneumonia, unspecified organism (principal); I50.33 Acute on chronic diastolic (congestive) heart failure; J96.21 Acute and chronic respiratory failure with hypoxia; E11.9 Type 2 diabetes mellitus without complications; I11.0 Hypertensive heart disease with heart failure; Z21 Asymptomatic human immunodeficiency virus [HIV] infection status
CPT/HCPCS: 36415; 71045; 71275; 80048; 80053; 80061; 80076; 82550; 82553; 82805; 82947; 83605; 83690; 83735; 83880; 84100; 84484; 85025; 85379; 85610; 85730; 87040; 93005; 94640; 94660; 94760; 96374; 99285; G0378; J0696; J1650; J1815; J1940; J2543; J3475; J7060; Q9967

== ENCOUNTER 2020-07-24 19:52 | Emergency (ER) | payer OTHER ==
--- OUTSIDE RECORDS SUMMARY | 2020-07-24 19:54 | XMS REPORT | Summary of Care ---
:[address] [facility] - Health Address [address] [place] [address] Care Team Providers Name Role Phone Pcp, Does Not Have A Primary Care Provider Encounter Details Date Type Department Care Team Description 07/17/[address] [facility] Doctor Unassigned, No [address] [facility] [place] [address] [address] [place] [address] Allergies No Known Allergiesdocumented as of this encounter (statuses as of 07/17/2020) Medications Medication Sig Dispensed Refills Start Date End Date Status metFORMIN 1,000 mg tablet Take 1,000 mg 0 Active by mouth 2 (two) times daily with meals. empagliflozin (JARDIANCE) Take 25 mg by 0 Active 25 mg Tab mouth daily before a meal. SITagliptin (JANUVIA) 100 Take 100 mg by 0 Active mg tablet mouth daily. Potassium Bicarb-Citric Take by mouth 0 Active Acid 10 mEq TbEF daily. furosemide 40 mg tablet Take 40 mg by 0 Active mouth daily. Pitavastatin (LIVALO) 4 Take by mouth 0 Active mg Tab daily. pantoprazole sodium Take 40 mg by 0 Active (PANTOPRAZOLE ORAL) mouth daily. promethazine HCl Take 40 mg by 0 Active (PROMETHAZINE ORAL) mouth daily. aspirin 81 mg chewable Take 81 mg by 0 Active tablet mouth daily. traMADol 50 mg tablet Take 50 mg by 0 Active mouth daily. 2-3x/daily cyclobenzaprine 10 mg Take 10 mg by 0 Active tablet mouth 3 (three) times daily. prn dolutegravir (TIVICAY) 50 Take 1 tablet 30 tablet 5 11/21/2019 Active mg tabletIndications: by mouth daily. Symptomatic HIV infection emtricitabine-tenofovir Take 1 tablet 30 tablet 5 11/21/2019 Active alafen (DESCOVY) by mouth daily. tabletIndications: Symptomatic HIV infection documented as of this encounter (statuses as of 07/17/2020) Active Problems Not on filedocumented as of this encounter (statuses as of 07/17/2020) Immunizations Name Administration Dates Next Due HEPLISAV HEP B, ADULT 2 DOSE, IM 09/13/2019, 08/09/201908/15 Hepatitis A Adult 08/09/2019 01/08/2020 Influenza Virus Vaccine Quad .5 mL IM 6+ MO 05/10/2019 documented as of this encounter Social History Tobacco Use Types Packs/Day Years Used Date Current Every Day Smoker Cigarettes 1 3 Sta rted: 08/14/1983 Smokeless Tobacco: Never Used Alcohol Use Drinks/Week oz/Week Comments Yes 2 Shots of liquor 2.0 Occasionally Alcohol Habits Answer Date Recorded How often do you have a drink containing alcohol? Monthly or less 05/10/2019 How many drinks containing alcohol do you have on a 1 or 2 05/10/2019 typical day when you are drinking? How often do you have six or more drinks on one Less than mo nthly 05/10/2019 occasion? 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 documented as of this encounter Last Filed Vital Signs Not on filedocumented in this encounter Plan of Treatment Date Type Specialty Care Team Description 07/17/2020 Office Visit Cardiology Sammi Fuentes MD [address] [place] [address] [place], [place] [id number] [phone] 07/24/2020 Office Visit Infectious Disease [facility] [address] [place], [place] [address] Health Maintenance Due Date Last Done Comments PNEUMOCOCCAL 0-64 YEARS COMBINED SERIES (1 of 3 - 1981 PCV13) DTaP,Tdap,and Td Vaccines (1 - Tdap) 1994 INFLUENZA VACCINE (#1) 2020 05/10/2019 Depression Screening 10/07/2020 10/07/2019 Colorectal Cancer Screening 2025 documented as of this encounter Procedures Procedure Name Priority Date/Time Associated Diagnosis Comme nts CONSENT/REFUSAL FOR Routine 07/17/2020 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 Medicare A & B ent [id number] [place] [address] [employer] [id number] 2019-Pres [address] [place] [id number] [place] [address] documented as of this encounter
--- OUTSIDE RECORDS SUMMARY | 2020-07-24 19:54 | XMS REPORT | Continuity of Care Document ---
:1975 Author Organization [facility] t Address [address] [place] [address] Care Team Providers Name Role Phone Alfredo FLORENCE, K.H. Attending Clinician Problems This patient has no known problems. Allergies, Adverse Reactions, Alerts This patient has no known allergies or adverse reactions. Medications This patient has no known medications. Procedures This patient has no known procedures. Encounters Start End Encounter Admission Attending Care Care Encounter Source Date/Time Date/Time Type Type Clinicians Facility Department ID 2020-07-21 2020-07-21 Telephone Narda Fuentes [id number] 00:00:00 00:00:00 Sammi Boles [id number] [facility] [id number] Results This patient has no known results.
--- OUTSIDE RECORDS SUMMARY | 2020-07-24 19:55 | XMS REPORT | Summary of Care ---
:1975 Author Organization [facility] Address [address] [place] [address] Care Team Providers Name Role Phone Henry Primary Care Provider Reason for Visit Reason Comments LAB WORK Encounter Details Date Type Department Care Team Description 07/18/2020 Managing Attorney Visit [facility] Sammi Fuentes MD [address] [place] [address] GARCIA (dyspnea on exertion); Professional Office Pob, Adc Lab Main Dyslipidemia; Building Phlebotomy Type 2 d iabetes mellitus without complication, without long-term current use of insulin Lab Professional Office Building [address] [place] [address] , [address] [place] [address] Allergies No Known Allergiesdocumented as of this encounter (statuses as of 07/18/2020) Medications Medication Sig Dispensed Refills Start Date End Date Status metFORMIN 1,000 mg Take 1,000 mg 0 Active tablet by mouth daily with breakfast. empagliflozin Take 25 mg by 0 Ac tive (JARDIANCE) 25 mg Tab mouth daily before a meal. SITagliptin (JANUVIA) Take 100 mg by 0 Active 100 mg tablet mouth daily. Potassium Bicarb-Citric Take by mouth 0 Active Acid 10 mEq TbEF daily. furosemide 40 mg tablet Take 40 mg by 0 Active mouth daily. pantoprazole sodium Take 40 mg by [...] 3 (three) times daily. prn dolutegravir (TIVICAY) Take 1 tablet 30 tablet 5 11/21/2019 Active 50 mg by mouth daily. tabletIndications: Symptomatic HIV infection emtricitabine-tenofovir Take 1 tablet 30 tablet 5 11/21/2019 Active alafen (DESCOVY) by mouth daily. tabletIndications: Symptomatic HIV infection rosuvastatin 40 mg Take 40 mg by 0 Active tablet mouth at bedtime. insulin detemir inject 50 Units 0 Active (LEVEMIR FLEXPEN SC) under the skin 2 (two) times daily. glimepiride 1 mg tablet Take 1 mg by 0 Active mouth 2 (two) times daily. ALBUTEROL INHALE Inhale daily. 0 Active nitroglycerin [address] 0.4 mg 0 Active sublingual tablet under the tongue every 5 (five) minutes as needed for Chest pain. lisinopriL 5 mg tablet Take 5 mg by 0 Active mouth daily. isosorbide mononitrate Take 1 tablet 30 tablet 2 07/17/2020 Active 60 mg 24 hr by mouth daily tabletIndications: GARCIA for 30 days. (dyspnea on exertion), Dyslipidemia, Type 2 diabetes mellitus without complication, without long-term current use of insulin documented as of this encounter (statuses as of 07/18/2020) Active Problems Not on filedocumented as of this encounter (statuses as of 07/18/2020) Immunizations Name Administration Dates Next Due HEPLISAV [...] with No / Unsure 07/17/2020 9:16 AM MECHANICAL SYSTEMS DESIGNER someone who was confirmed or suspected to have Coronavirus / COVID-19? documented as of this encounter Last Filed Vital Signs Not on filedocumented in this encounter Nursing Notes Josy Bernal - 07/18/2020 8:00 AM CST Venipuncture collection performed by clean technique on the left anticubitus. Total of 1 attempts were made. Slight pressure and a bandage/dressing were applied to the site(s). The patient experienced no complications. The following specimens were processed according to instructions and sent to [facility] laboratories per lab order on today: LT BLUE SST 1 RED LAV 1 PPT DK GREEN (LiHep) DK GREEN (SodH) GONZALEZ DK BLUE (K2) DK BLUE (S) ACD Blood Culture NIPT/NTD documented in this encounter Plan of Treatment Date Type Specialty Care Team Description 07/24/2020 Office Visit Infectious Disease [facility] [address] [place] [phone] 08/21/2020 Office Visit Cardiology Sammi Fuentes MD [address] [place], [place] [address] [phone] Name Type Priority Associated Diagnoses Date/Ti me CBC WITH DIFF LAB Routine GARCIA (dyspnea on 07/18/2020 8:17 AM MECHANICAL SYSTEMS DESIGNER exertion) Dyslipidemia Type 2 diabetes mellitus without complication, without long-term current use of insulin COMP. METABOLIC PANEL LAB Routine GARCIA (dyspnea on 12/2019 8:17 AM MECHANICAL SYSTEMS DESIGNER (34642) exertion) Dyslipidemia Type 2 diabetes mellitus without complication, without long-term current use of insulin LIPID PANEL LAB Routine GARCIA (dyspnea on 07/18/2020 8:17 AM MECHANICAL SYSTEMS DESIGNER (69551)(TOTAL exertion) CHOLESTEROL, Dyslipidemia TRIGLYCERIDES, HDL) Type 2 diabetes melli tus without complication, without long-term current use of insulin N-TERMINAL PRO-BNP LAB Routine GARCIA (dyspnea on 2019 8:17 AM MECHANICAL SYSTEMS DESIGNER exertion) Dyslipidemia Type 2 diabetes mellitus without complication, without long-term current use of insulin TROPONIN I LAB Routine GARCIA (dyspnea on 07/18/2020 8:17 AM MECHANICAL SYSTEMS DESIGNER exertion) Dyslipidemia Type 2 diabetes mellitus without complication, without long-term current use of insulin Health Maintenance Due Date Last Done Comments PNEUMOCOCCAL 0-64 YEARS COMBINED 1981 SERIES (1 of 3 - PCV13) DTaP,Tdap,and Td Vaccines (1 - 1994 Tdap) INFLUENZA VACCINE (#1) 2020 05/10/2019 Postponed from 04/14/2020 (Vaccine not lawson ilable) Depression Screening 10/07/2020 10/07/2019 Colorectal Cancer Screening 2025 documented as of this encounter Results Not on filedocumented in this encounter Visit Diagnoses Diagnosis GARCIA (dyspnea on exertion) Other dyspnea and respiratory abnormalit y Dyslipidemia Other and unspecified hyperlipidemia Type 2 diabetes mellitus without complic ation, without long-term current use of insulin documented in this encounter Insurance Payer Benefit Plan / Subscriber ID Effective Phone Address T ype Group Dates MEDICARE MEDICARE PART [id number] 2017-Pres [phone] Medicare A & B ent [id number] [place] [address] [employer] [id number] 2019-Pres [address] [place] [id number] [place] [address] documented as of this encounter
--- OUTSIDE RECORDS SUMMARY | 2020-07-24 19:55 | XMS REPORT | Summary of Care ---
:1975 Author Organization [facility] - Health Address [address] [place] [address] Care Team Providers Name Role Phone Henry Primary Care Provider Encounter Details Date Type Department Care Team Description 07/18/2020 Orders Only [facility] Doctor Unassigned, No [address] [facility] [place] [address] [address] [place] [address] Allergies No Known Allergiesdocumented as of this [...] with No / Unsure 07/17/2020 9:16 AM WAREHOUSE CHECKER someone who was confirmed or suspected to have Coronavirus / COVID-19? documented as of this encounter Last Filed Vital Signs Not on filedocumented in this encounter Plan of Treatment Date Type Specialty Care Team Description 07/18/2020 Craft Worker Visit Phlebotomy [facility] Lab Main 07/24/2020 Office Visit Infectious Disease [facility] [address] [place], [place] [address] 08/21/2020 Office Visit Cardiology Sammi Fuentes MD [address] [place], [place] [address] Health Maintenance Due Date Last Done Comments PNEUMOCOCCAL 0-64 YEARS COMBINED 1981 SERIES (1 of 3 - PCV13) DTaP,Tdap,and Td Vaccines (1 - 1994 Tdap) INFLUENZA VACCINE (#1) 2020 05/10/2019 Postponed from 04/14/2020 (Vaccine not lawson ilable) Depression Screening 10/07/2020 10/07/2019 Colorectal Cancer Screening 2025 documented as of this encounter Procedures Procedure Name Priority Date/Time Associated Diagnosis Comme nts ASSIGNMENT OF BENEFITS Routine 07/18/2020 7:55 AM WAREHOUSE CHECKER documented in this encounter Results Not on filedocumented in this encounter Insurance Payer Benefit Plan / Subscriber ID Effective Phone Address T ype Group Dates MEDICARE MEDICARE PART [id number] 2017-Pres [phone] Medicare A & B ent [id number] [place] [address] [employer] [id number] 2019-Pres [address] Medicaid [place] [id number] [place] [address] documented as of this encounter
--- OUTSIDE RECORDS SUMMARY | 2020-07-24 19:55 | XMS REPORT | Summary of Care ---
:1975 Author Organization [facility] Address [address] [place] [address] Care Team Providers Name Role Phone Henry Primary Care Provider Reason for Visit Reason Comments LAB WORK Auth/Cert Status Reason Specialty Diagnoses / Procedures Referred By C ontact Referred To Contact Phlebotomy Procedures Adc Pob Lab Draw CBC W/ DIFF Professional Office CMP Building LIPID PANEL [address] [place] [address] N-TERMINAL PRO B [facility] , [address] [place] [address] Phone: Fax: Encounter Details Date Type Department Care Team Description 07/18/2020 Mastic Sprayer Visit [facility] Sammi Cherry MD [address] [facility] [address] [place] [address] GARCIA (dyspnea on exertion); Professional Office Pob, Adc Lab Main Dyslipidemia; Building Phlebotomy Type 2 d iabetes mellitus without complication, without long-term current use of insulin Lab Professional Office Building [address] [place] [address] , [address] [place] [address] Allergies No Known Allergiesdocumented as [...] with No / Unsure 07/17/2020 9:16 AM TRAUMA DIRECTOR someone who was confirmed or suspected to [...] processed according to instructions and sent to [facility] laboratories per lab order on today: LT BLUE SST 1 RED LAV 1 PPT DK GREEN (LiHep) DK GREEN (SodH) GONZALEZ DK BLUE (K2) DK BLUE (S) ACD Blood Culture NIPT/NTD documented in this encounter Miscellaneous Notes Result QuickNote - Sammi Cherry MD - 07/18/2020 8:00 AM CSTTroponin negative. Mildly elevated NT proBNP noted. No prior numbers for comparison. CMP within acceptable normal limits LDL at goal however triglycerides elevated at 295 but better than 1 year ago. CBC within acceptable limits except Elevated hemoglobin noted. May need to follow-up with the primary care physician for further work-up. Continue with the current cardiac medicines as discussed in the office visit without any further changes. Plan to proceed with coronary angiogram as discussed ddendum Note - Sammi Cherry MD - 07/18/2020 8:00 AM TRAUMA DIRECTOR Addended by: SAMMI CHERRY on: 07/18/2020 03:42 PM Modules accepted: Orders MA DIRECTOR documented in this encounter Plan of Treatment Date Type Specialty Care Team Description 07/24/2020 Office Visit [facility]ious Disease [facility] [address] [place] [address] 08/21/2020 Office Visit Cardiology Sammi Cherry MD [address] [facility] [address] [place] [phone] Name Type Priority Associated Diagnoses Order S chedule GLYCOSYLATED HEMOGLOBIN LAB Add-on GARCIA (dyspnea on 1 Occurrences starting (A1C) exertion) 07/18/2020 until Dyslipidemia 07/19/2021 Type 2 diabetes mellitus without complication, without [...] Name Priority Date/Time Associated Diagnosis Comme nts N-TERMINAL PRO-BNP Routine 07/18/2020 8:17 AM GARCIA (dyspnea on Results for this TRAUMA DIRECTOR exertion) procedure are in Dyslipidemia the results Type 2 diabetes section. mellitus without complication, without long-term current use of insulin CBC WITH DIFF Routine 07/18/2020 8:17 AM GARCIA (dyspnea on Resu lts for this TRAUMA DIRECTOR exertion) procedure are in Dyslipidemia the results Type 2 diabetes section. mellitus without complication, without long-term current use of insulin LIPID PANEL Routine 07/18/2020 8:17 AM GARCIA (dyspnea on Resul ts for this (01749)(TOTAL TRAUMA DIRECTOR exertion) procedure are in CHOLESTEROL, Dyslipidemia the results TRIGLYCERIDES, HDL) Type 2 diabetes secti on. mellitus without complication, without long-term current use of insulin COMP. METABOLIC Routine 07/18/2020 8:17 AM GARCIA (dyspnea on Re sults for this PANEL ([id number]) TRAUMA DIRECTOR exertion) procedure are in Dyslipidemia the results Type 2 diabetes section. mellitus without complication, without long-term current use of insulin TROPONIN I Routine 07/18/2020 8:17 AM GARCIA (dyspnea on Resul ts for this TRAUMA DIRECTOR exertion) procedure are in Dyslipidemia the results Type 2 diabetes section. mellitus without complication, without long-term current use of insulin documented in this encounter Results TROPONIN I (07/18/2020 8:17 AM TRAUMA DIRECTOR) Pathologist Sig nature TROPONIN I 0.022 <=0.034 ng/mL [facility] Specimen Blood Narrative Performed At Equal or Less than 0.034 ng/ml---Normal [facility] Note: Cardiac troponin begins to rise 3-4 hours after the onset of ischemia. Repeat in 4-6 hours if the sample was drawn within 3-4 hours of the onset of the symptom and found normal. Between 0.035 and 0.120 ng/mL--- Borderline. Questionable myocardial injury or necros is Note: Serial measurement may be necessary to confirm or exclude the diagnosis of myocardial injury or necrosis; Clinical correlation (symptoms, EKGs, imaging studies, and others) required; Repeat in 4-6 hours if clinically indicated. Equal or Higher than 0.121 ng/mL---Abnormal. Myocardial Injury or Necrosis Likely Biotin has been reported to cause a negative bias, interpret results relative to patient's use of biotin. Performing Organization Address City/State/Zipcode Phone Number [facility] CLIA: [id number] [place] [address] N-TERMINAL PRO-BNP (07/18/2020 8:17 AM TRAUMA DIRECTOR) Pathologist Sig nature NT-proBNP 397 (H) <=125 pg/mL [facility] Specimen Blood Narrative Performed At Biotin has been reported to cause a negative [facility] bias, interpret results relative to patient's use of biotin. Performing Organization Address City/[facility]/Zipcode Phone Number [facility] CLIA: [id number] [place] [address] [address] LIPID PANEL ([id number])(TOTAL CHOLESTEROL, TRIGLYCERIDES, HDL) (07/18/2020 8:17 AM TRAUMA DIRECTOR) Pathologist Sig nature CHOL 101 (L) 120 - 200 mg/dL [facility] HDL 20 (L) >40 mg/dL [facility] HDLC RATIO 5.1 (H) <=5.0 [facility] TRIG 295 (H) 30 - 170 mg/dL [facility] LDL CHOL 22 <=160 mg/dL [facility] VLDL 59 5 - 60 mg/dL [facility] Specimen Blood Performing Organization Address City/State/Zipcode Phone Number [facility] CLIA: [id number] [place] [address] LABORATORY [address] [facility] COMP. METABOLIC PANEL ([id number]) (07/18/2020 8:17 AM TRAUMA DIRECTOR) Pathologist Sig nature NA 140 135 - 145 [facility] mmol/L [facility] K 4.2 3.5 - 5.0 [facility] mmol/L [facility] CL 98 98 - 108 mmol/L [facility] CO2 TOTAL 31 23 - 31 mmol/L [facility] AGAP 11 2 - 16 [facility] BUN 12 7 - 23 mg/dL [facility] GLUCOSE 119 (H) 70 - 110 mg/dL [facility] CREATININE 1.03 0.60 - 1.25 [facility] mg/dL [facility] TOTAL BILI 0.6 0.1 - 1.1 mg/dL [facility] CALCIUM 10.1 8.6 - 10.6 [facility] mg/dL [facility] T PROTEIN 7.3 6.3 - 8.2 g/dL [facility] ALBUMIN 4.5 3.5 - 5.0 g/dL [facility] ALK PHOS 64 34 - 122 U/L [facility] ALTv 19 5 - 50 U/L [facility] AST(SGOT) 19 13 - 40 U/L [facility] eGFR Calculation 78.1 mL/min/1.73m2 [facility] (Non-[facility] LABORATORY Albanian) eGFR Calculation 94.7 mL/min/1.73m2 [facility] () [facility] Specimen Blood Narrative Performed At [facility] Fil[facility] ([facility] and Staging of Kidney Disease* + + +- + | GFR (mL/min/1.73 m2) | With Kidney Damage | Without Kidney Damage + + +- + | >90 | Stage one | Normal + + +- + | 60-89 | Stage two | Decreased GFR + + +- + | 30-59 | Stage three | Stage three + + +- + | 15-29 | Stage four | Stage four + + +- + | <15 (or dialysis) | Stage five | Stage five + + +- + *Each stage assumes the associated GFR level has been in effect for at least three months. Stages 1 to 5, with or without kidney disease, indicate chronic kidney disease. Notes: Determination of stages one and two (with eGFR >59mL/min/1.73 m2) requires estimation of kidney damage for at least three months as defined by structural or functional abnormalities of the kidney, manifested by either: Pathological abnormalities or Markers of kidney damage (including abnormalities in the composition of the blood or urine or abnormalities in imaging tests). Performing Organization Address City/State/Zipcode Phone Number [facility] CLIA: [id number] [place] [address] CBC WITH DIFF (07/18/2020 8:17 AM TRAUMA DIRECTOR) Pathologist [facility] nature WBC 7.84 4.20 - 10.70 [facility] 10*3/L [facility] RBC 6.08 (H) 4.26 - 5.52 [facility] 10*6/L [facility] HGB 19.0 (H) 12.2 - 16.4 [facility] g/dL [facility] HCT 54.6 (H) 38.4 - 49.3 % [facility] MCV 89.8 81.7 - 95.6 fL [facility] MCH 31.3 26.1 - 32.7 pg [facility] MCHC 34.8 31.2 - 35.0 [facility] g/dL [facility] RDW-SD 42.7 38.5 - 51.6 fL [facility] RDW-CV 13.1 12.1 - 15.4 % [facility] PLT 170 150 - 328 [facility] 10*3/L HOSPITAL LABORATORY MPV 10.9 9.8 - 13.0 fL [facility] NRBC/100 WBC 0.0 0.0 - 10.0 /100 [facility] WBCs [facility] NRBC x10^3 <0.01 10*3/L [facility] GRAN MAT (NEUT) % 67.6 % [facility] IMM GRAN % 0.40 % [facility] LYMPH % 19.1 % [facility] MONO % 11.2 % [facility] EOS % 1.1 % [facility] BASO % 0.6 % [facility] GRAN MAT x10^3(ANC) 5.29 1.99 - 6.95 [facility] 10*3/uL HOSPITAL LABORATORY IMM GRAN x10^3 0.03 0.00 - 0.06 [facility] 10*3/uL HOSPITAL LAB[facility]ATORY LYMPH x10^3 1.50 1.09 - 3.23 [facility] 10*3/uL HOSPITAL LABORATORY MONO x10^3 0.88 0.36 - 1.02 [facility] 10*3/uL HOSPITAL LABORATORY EOS x10^3 0.09 0.06 - 0.53 [facility] 10*3/uL HOSPITAL LABORATORY BASO x10^3 0.05 0.01 - 0.09 [facility] 10*3/uL HOSPITAL LABORATORY Specimen Blood Performing Organization Address City/State/Zipcode Phone Number [facility] CLIA: [id number] [place] [address] documented in this encounter Visit Diagnoses Diagnosis GARCIA (dyspnea on exertion) Other dyspnea and respiratory abnormalit y Dyslipidemia Other and unspecified hyperlipidemia Type 2 diabetes mellitus without complic ation, without long-term current use of insulin documented in this encounter Insurance Payer Benefit Plan / Subscriber ID Effective Phone Address T ype Group Dates MEDICARE MEDICARE PART [id number] 2017-Pres [phone] Medicare A & B ent [id number] [place] [phone] [employer] [id number] 2019-Pres [address] Medicaid [facility] ent [id number] [place] [address] documented as of this encounter"
--- OUTSIDE RECORDS SUMMARY | 2020-07-24 19:56 | XMS REPORT | Summary of Care ---
:1975 Author Organization [facility] Address [address] [place] [address] Care Team Providers Name Role Phone Henry Primary Care Provider Reason for Referral (Routine) Status Reason Specialty Diagnoses / Referred By Referred To Procedures Contact Contact New Request Cardiology Diagnoses GARCIA (dyspnea on exertion) Dyslipidemia Type 2 diabetes mellitus without complication, without long-term current use of insulin Fuentes, Sendil Procedures Cardiac Cath Request for Service (Cardiology Use Only) MD Thu [address] [address] (STAT) Status Reason Specialty Diagnoses / Referred By Referred To Procedures Contact Contact Closed Echocardiograph Diagnoses GARCIA (dyspnea on exertion) Dyslipidemia Type 2 diabetes mellitus without complication, without long-term current use of insulin Fuentes, Sendil Procedures ECHO ROUTINE W/DOPPLER COLOR Preferred Location: [facility] MD Thu [address] [facility] [address] R [address] [address] Reason for Visit Reason Comments New Patient Establish Care Ekg Done today in office (Routine) Status Reason Specialty Diagnoses / Procedures Referred By Porfirio barnett Referred To Contact Closed Cardiology Procedures Mohan Figueroa CONSULT/REFERRAL [address] [place] [address] Phone: Encounter Details Date Type Department Care Team Description 07/17/2020 Office Visit [facility] Fuentes, Sendil Chest pain, c ardiac (Primary Dx); Cardiology- MD JOSE Funes (dyspnea on exertion); 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 empagliflozin Take 25 mg 0 Activ e (JARDIANCE) 25 mg by mouth Tab daily before a meal. SITagliptin Take 100 mg 0 Active (JANUVIA) 100 mg by mouth tablet daily. Potassium Take by 0 Active Bicarb-Citric Acid mouth daily. 10 mEq TbEF furosemide 40 mg Take 40 mg 0 Ac tive tablet by mouth daily. pantoprazole sodium Take 40 mg 0 Active (PANTOPRAZOLE ORAL) by mouth daily. promethazine HCl Take 40 mg 0 Ac tive (PROMETHAZINE ORAL) by mouth daily. aspirin 81 mg Take 81 mg 0 Activ e chewable tablet by mouth daily. traMADol 50 mg Take 50 mg 0 Acti ve tablet by mouth daily. 2-3x/daily cyclobenzaprine 10 Take 10 mg 0 Active mg tablet by mouth 3 (three) times daily. prn dolutegravir Take 1 30 tablet 5 11/21/2019 Active (TIVICAY) 50 mg tablet by tabletIndications: mouth daily. Symptomatic HIV infection emtricitabine-tenofo Take 1 30 tablet 5 11/21/2019 Active vir alafen (DESCOVY) tablet by tabletIndications: mouth daily. Symptomatic HIV infection rosuvastatin 40 mg Take 40 mg 0 Active tablet by mouth at bedtime. insulin detemir inject 50 0 Acti ve (LEVEMIR FLEXPEN SC) Units under the skin 2 (two) times daily. glimepiride 1 mg Take 1 mg by 0 Active tablet mouth 2 (two) times daily. ALBUTEROL INHALE Inhale 0 Act abdoul daily. nitroglycerin 0.[address] 0.4 mg 0 Active sublingual tablet under the tongue every 5 (five) minutes as needed for Chest pain. lisinopriL 5 mg Take 5 mg by 0 A ctive tablet mouth daily. isosorbide Take 1 30 tablet 2 07/17/2020 Active mononitrate 60 mg 24 tablet by 1 hr mouth daily tabletIndications: for 30 days. GARCIA (dyspnea on exertion), Dyslipidemia, Type 2 diabetes mellitus without complication, without long-term current use of insulin Pitavastatin Take by 0 Discont inued (LIVALO) 4 mg Tab mouth daily. 0 (Therapy completed) documented as of this encounter (statuses as of 07/19/2020) Active Problems Not on filedocumented as of this encounter (statuses as of 07/19/2020) Immunizations Name Administration Dates Next Due HEPLISAV [...] with No / Unsure 07/17/2020 9:16 AM WARRANTY CLERK someone who was confirmed or suspected to have Coronavirus / COVID-19? documented as of this encounter Last Filed Vital Signs Vital Sign Reading Time Taken Comments Blood Pressure 133/90 07/17/2020 9:42 AM WARRANTY CLERK Pulse 92 07/17/2020 9:42 AM WARRANTY CLERK Temperature - - Respiratory Rate 19 07/17/2020 9:42 AM WARRANTY CLERK Oxygen Saturation 95% 07/17/2020 9:42 AM WARRANTY CLERK Inhaled Oxygen Concentration - - Weight 99.8 kg (220 lb) 07/17/2020 9:42 AM WARRANTY CLERK Height 167.6 cm (5' 6") 07/17/2020 9:42 AM WARRANTY CLERK Body Mass Index 35.51 07/17/2020 9:42 AM WARRANTY CLERK documented in this encounter Progress Notes Sammi Fuentes MD - 07/17/2020 9:30 AM CST [facility] Cardiology Consult Note Patient: Yan Camargo Date of : 1975 Date of service: 07/17/2020 Primary Care Physician: PATIENT DOES NOT HAVE A PCP CHIEF COMPLAINT: Chief Complaint Patient presents with New Patient Establish Care Ekg Done today in office HISTORY OF PRESENT ILLNESS: Yan Camargo is a 45 year old male presented to the clinic for evaluation for chest pain/GARCIA. History from patient. Patient seen and examined in the room. Pertinent cardiac related history reviewed from chart Risk factors include history of CAD/stents at least 5 to 10 years ago hypertension, dyslipidemia, diabetes mellitus, ongoing smoking history. GARCIA NYHA Class III. Gradually progressive. Reports currently having difficult time doing his routine. Activities because of shortness of breath. Patient reports has been having chest pain, felt like tightness in her retrosternal area, lasted forfew mins. Happens with exertion and better with rest. No rest chest pain noted. No radiation. This has been going for last few months. Worsening. Unable to quantify the severity of pain. Reports compliance with the medication. Reports has been taking sublingual nitro more often the last few weeks. No chest pain at rest. No PND or orthopnea. No pedal edema. No exertional palpitations or palpitations at rest. No syncopal attacks. No prior records available for review. Previous Cardiac Studies: IMAGING - I personally reviewed, pertinent results as below: ECG 07/17/2020 Normal sinus rhythm Possible Left atrial enlargement Anterolateral infarct age undetermined Abnormal ECG PAST MEDICAL HISTORY Past Medical History: Diagnosis Date Angina pectoris CAD (coronary artery disease) late 30s h/o [place], stent x 2 (placed at separate times) CHF (congestive heart failure) Diabetes mellitus, type 2 developed in early to mid 30s Human immunodeficiency virus (HIV) disease ~ 2000 Hyperlipidemia Panic attacks No significant surgical history noted from cardiac stand point. Family History Problem Relation Age of Onset Coronary Heart Disease Mother Diabetes Father Stroke Father SOCIAL HISTORY Social History Socioeconomic History Marital status: Single Spouse name: Not on file Number of children: Not on file Years of education: Not on file Highest education level: Not on file Occupational History Not on file Social Needs Financial resource strain: Not on file Food insecurity Worry: Not on file Inability: Not on file Transportation needs Medical: Not on file Non-medical: Not on file Tobacco Use Smoking status: Current Every Day Smoker Packs/day: 1.00 Years: 3.00 Pack years: 3.00 Types: Cigarettes Start date: 08/14/1983 Smokeless tobacco: Never Used Substance and Sexual Activity Alcohol use: Yes Alcohol/week: 2.0 standard drinks Types: 2 Shots of liquor per week Frequency: Monthly or less Drinks per session: 1 or 2 Binge frequency: Less than monthly Comment: Occasionally Drug use: Never Sexual activity: Not Currently Lifestyle Physical activity Days per week: Not on file Minutes per session: Not on file Stress: Not on file Relationships Social connections Talks on phone: Not on file Gets together: Not on file Attends rastafarian service: Not on file Active member of club or organization: Not on file Attends meetings of clubs or organizations: Not on file Relationship status: Not on file Intimate partner violence Fear of current or ex partner: Not on file Emotionally abused: Not on file Physically abused: Not on file Forced sexual activity: Not on file Other Topics Concern Not on file Social History Narrative Not on file ALLERGIES No Known Allergies MEDICATIONS Patient's Medications START taking these medications ISOSORBIDE MONONITRATE 60 MG 24 HR TABLET Take 1 tablet by mouth daily for 30 days. CONTINUE taking these medications which have NOT CHANGED ALBUTEROL INHALE Inhale daily. ASPIRIN 81 MG CHEWABLE TABLET Take 81 mg by mouth daily. CYCLOBENZAPRINE 10 MG TABLET Take 10 mg by mouth 3 (three) times daily. prn DOLUTEGRAVIR (TIVICAY) 50 MG TABLET Take 1 tablet by mouth daily. EMPAGLIFLOZIN (JARDIANCE) 25 MG TAB Take 25 mg by mouth daily before a meal. EMTRICITABINE-TENOFOVIR ALAFEN (DESCOVY) TABLET Take 1 tablet by mouth daily. FUROSEMIDE 40 MG TABLET Take 40 mg by mouth daily. GLIMEPIRIDE 1 MG TABLET Take 1 mg by mouth 2 (two) times daily. INSULIN DETEMIR (LEVEMIR FLEXPEN SC) inject 50 Units under the skin 2 (two) times daily. LISINOPRIL 5 MG TABLET Take 5 mg by mouth daily. METFORMIN 1,000 MG TABLET Take 1,000 mg by mouth daily with breakfast. NITROGLYCERIN 0.[address] 0.4 mg under the tongue every 5 (five) minutes as needed for Chest pain. PANTOPRAZOLE SODIUM (PANTOPRAZOLE ORAL) Take 40 mg by mouth daily. POTASSIUM BICARB-CITRIC ACID 10 MEQ TBEF Take by mouth daily. PROMETHAZINE HCL (PROMETHAZINE ORAL) Take 40 mg by mouth daily. ROSUVASTATIN 40 MG TABLET Take 40 mg by mouth at bedtime. SITAGLIPTIN (JANUVIA) 100 MG TABLET Take 100 mg by mouth daily. TRAMADOL 50 MG TABLET Take 50 mg by mouth daily. 2-3x/daily START taking Modified Medications as Prescribed No medications on file STOP taking these medications PITAVASTATIN (LIVALO) 4 MG TAB Take by mouth daily. Current Outpatient Medications: ALBUTEROL INHALE, Inhale daily., Disp: , Rfl: glimepiride 1 mg tablet, Take 1 mg by mouth 2 (two) times daily., Disp: , Rfl: insulin detemir (LEVEMIR FLEXPEN SC), inject 50 Units under the skin 2 (two) times daily., Disp: , Rfl: isosorbide mononitrate 60 mg 24 hr tablet, Take 1 tablet by mouth daily for 30 days., Disp: 30 tablet, Rfl: 2 lisinopriL 5 mg tablet, Take 5 mg by mouth daily., Disp: , Rfl: rosuvastatin 40 mg tablet, Take 40 mg by mouth at bedtime., Disp: , Rfl: dolutegravir (TIVICAY) 50 mg tablet, Take 1 tablet by mouth daily., Disp: 30 tablet, Rfl: 5 emtricitabine-tenofovir alafen (DESCOVY) tablet, Take 1 tablet by mouth daily., Disp: 30 tablet, Rfl: 5 aspirin 81 mg chewable tablet, Take 81 mg by mouth daily., Disp: , Rfl: cyclobenzaprine 10 mg tablet, Take 10 mg by mouth 3 (three) times daily. prn, Disp: , Rfl: empagliflozin (JARDIANCE) 25 mg Tab, Take 25 mg by mouth daily before a meal., Disp: , Rfl: furosemide 40 mg tablet, Take 40 mg by mouth daily., Disp: , Rfl: metFORMIN 1,000 mg tablet, Take 1,000 mg by mouth daily with breakfast., Disp: , Rfl: pantoprazole sodium (PANTOPRAZOLE ORAL), Take 40 mg by mouth daily., Disp: , Rfl: Potassium Bicarb-Citric Acid 10 mEq TbEF, Take by mouth daily., Disp: , Rfl: promethazine HCl (PROMETHAZINE ORAL), Take 40 mg by mouth daily., Disp: , Rfl: SITagliptin (JANUVIA) 100 mg tablet, Take 100 mg by mouth daily., Disp: , Rfl: traMADol 50 mg tablet, Take 50 mg by mouth daily. 2-3x/daily, Disp: , Rfl: nitroglycerin 0.4 mg sublingual tablet, Place 0.4 mg under the tongue every 5 (five) minutes as needed for Chest pain., Disp: , Rfl: REVIEW OF SYSTEMS: Comprehensive 10-system review was conducted and were negative except for what's noted in the HPI. The following systems were reviewed: Constitutional, cardiovascular, respiratory, gastrointestinal, genitourinary, musculoskeletal, neurologic, psychiatric, endocrinological, and hematological. PHYSICAL EXAMINATION: Vitals: 07/17/20 0942 BP: 133/90 BP Location: Left arm Patient Position: Sitting BP CUFF SIZE: Adult Large Pulse: 92 Resp: 19 SpO2: 95% Weight: 220 lb (99.8 kg) Height: 5' 6" (1.676 m) General: no apparent distress HEENT: normocephalic atraumatic Neck: supple, no lymphadenopathy, no bruits, no JVD Lungs: clear to auscultation bilaterally. No wheezes or rhonchi. No increased work of breathing. Cardio: Regular rate and rhythm, S1&S2 normal, no murmurs, rubs or gallops Abdomen: soft; non-tender; non-distended; normoactive bowel sounds. : not examined Rectal: not examined Extremities: no clubbing, cyanosis, or edema. Skin: no rashes, no visible lesions. Neuro: no gross focal deficits LABS - Reviewed pertinent labs as below: CBC BMP PT/INR WBC (10*3/L) Date Value 07/18/2020 7.84 NA (mmol/L) Date Value 07/18/2020 140 No results found for: PT PLT (10*3/L) Date Value 07/18/2020 170 K (mmol/L) Date Value 07/18/2020 4.2 No results found for: PTINR HGB (g/dL) Date Value 07/18/2020 19.0 (H) BUN (mg/dL) Date Value 07/18/2020 12 HCT (%) Date Value 07/18/2020 54.6 (H) CREATININE (mg/dL) Date Value 07/18/2020 1.03 LIPID PROFILE GLUCOSE (mg/dL) Date Value 07/18/2020 119 (H) CHOL (mg/dL) Date Value 07/18/2020 101 (L) TSH LDL CHOL (mg/dL) Date Value 07/18/2020 22 No results found for: TSH CARDIAC ENZYMES HDL (mg/dL) Date Value 07/18/2020 20 (L) No results found for: CK TRIG (mg/dL) Date Value 07/18/2020 295 (H) LFTs No results found for: CKMB AST(SGOT) (U/L) Date Value 07/18/2020 19 TROPONIN I (ng/mL) Date Value 07/18/2020 0.022 ALT(SGPT) (U/L) Date Value 05/10/2019 16 ALTv (U/L) Date Value 07/18/2020 19 No results found for: BNP LDL CHOL (mg/dL) Date Value 07/18/2020 22 Recent Labs 07/18/20 0817 TROPNI 0.022 Recent Labs 07/18/20 0817 TRIG 295* LDL CHOL (mg/dL) Date Value 07/18/2020 22 NT-proBNP (pg/mL) Date Value 07/18/2020 397 (H) ASSESSMENT/PLAN 1. Chest pain, cardiac 2. GARCIA (dyspnea on exertion) EKG-12 LEAD ROUTINE CBC WITH DIFF COMP. METABOLIC PANEL (11211) LIPID PANEL (02914)(TOTAL CHOLESTEROL, TRIGLYCERIDES, HDL) N-TERMINAL PRO-BNP THYROID STIMULATING HORMONE EKG-12 LEAD ROUTINE isosorbide mononitrate 60 mg 24 hr tablet ECHO ROUTINE W/DOPPLER COLOR Preferred Location: [facility] TROPONIN I CANCELED: ECHO ROUTINE W/DOPPLER COLOR Preferred Location: [facility] 3. Dyslipidemia EKG-12 LEAD ROUTINE CBC WITH DIFF COMP. METABOLIC PANEL (84942) LIPID PANEL (10327)(TOTAL CHOLESTEROL, TRIGLYCERIDES, HDL) N-TERMINAL PRO-BNP THYROID STIMULATING HORMONE EKG-12 LEAD ROUTINE isosorbide mononitrate 60 mg 24 hr tablet ECHO ROUTINE W/DOPPLER COLOR Preferred Location: [facility] TROPONIN I CANCELED: ECHO ROUTINE W/DOPPLER COLOR Preferred Location: [facility] 4. Type 2 diabetes mellitus without complication, without long-term current use of insulin EKG-12 LEAD ROUTINE CBC WITH DIFF COMP. METABOLIC PANEL (05240) LIPID PANEL (59057)(TOTAL CHOLESTEROL, TRIGLYCERIDES, HDL) N-TERMINAL PRO-BNP THYROID STIMULATING HORMONE EKG-12 LEAD ROUTINE isosorbide mononitrate 60 mg 24 hr tablet ECHO ROUTINE W/DOPPLER COLOR Preferred Location: [facility] TROPONIN I CANCELED: ECHO ROUTINE W/DOPPLER COLOR Preferred Location: [facility] 5. Essential hypertension 6. Cigarette nicotine dependence without complication 7. Abnormal ECG 8. Obesity, unspecified classification, unspecified obesity type, unspecified whether serious comorbidity present 9. 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 No prior EKG available for comparison. Recommend a stat echocardiogram for further assessment Recommended to start taking Imdur 60 mg daily in addition to her routine cardiac medicines. Strong ER warning signs explained. Recommended to proceed with coronary angiogram for further assessment of underlying obstructive CAD. Continue aspirin 81 daily. CAD s/p stents x2. Last stents at least 5 to 10 years ago. We will try to get the records from [facility]. Continue with aspirin 81 daily, isosorbide 60 mg daily, rosuvastatin 40 mg daily HTN: Currently on lisinopril 5 mg daily/isosorbide 30 mg daily. Home BP log recommended. Cross check his BP machine. Appropriate ways to check home BP discussed. Goals BP < 130/80 stressed. Explained if BP > 130/80, adviced to send us the log. Lifestyle modifications stressed. Possible underlying systolic or diastolic heart failure: Recommended labs today. Continue with Lasix40 mg daily. Dyslipidemia: Recommended to keep LDL < 70. Lifestyle modifications stressed. Continue with rosuvastatin 40 mg daily. T2DM: Follows PCP Follow-up with us in 4 to 6 weeks. I have suggested heart catheterization to delinate coronary anatomy and possible angioplasty with/without stent(s) placement with/without LV supportive device depending on the catheterization findings.I explained the heart catheterization and possible angioplasty/stent procedure as well as the attendant risks. These risks include, but are not limited to, major bleeding requiring blood transfusion orsurgical repair, dye allergy, kidney insufficiency, heart attack, stroke, emergency heart bypass surgery, or . In average risk situations, the risk of these events is 1 in 300 for diagnostic heartcatheterization and 3- 5% for percutaneous coronary intervention. I estimated that the risk of major a dverse events from the procedure in this situation is average. The patient and family understand(s) the risks and wish(es) to proceed. Orders Placed This Encounter Procedures CBC WITH DIFF COMP. METABOLIC PANEL (40621) LIPID PANEL (96878)(TOTAL CHOLESTEROL, TRIGLYCERIDES, HDL) N-TERMINAL PRO-BNP THYROID STIMULATING HORMONE TROPONIN I ECHO ROUTINE W/DOPPLER COLOR Preferred Location: [facility] Requested Prescriptions Signed Prescriptions Disp Refills isosorbide mononitrate 60 mg 24 hr tablet 30 tablet 2 Sig: Take 1 tablet by mouth daily for 30 days. Patient's diease process and its evaluation and treatment were discussed. We discussed each of for cardio vascular-related problems and discussed long-term goals and expectations for the each problem.I reviewed each of the cardiac medications in detail. Reviewed the medication with patient in detail recommended to continue taking the current medications without further changes. Recommended goal BP < 130/80 consistently, LDL << 70, HbA1c < 6.5. Recommended, explained and stressed the importance of healthy eating habits and exercises and lifestyle modifications Follow up as planned is predicated on symptoms stability and/or acceptable test results. Patient is urged to call in sooner should problems arise or if there is no improvement in cardiac symptoms. ER warning signs and symptoms explained and patient verbalized understanding. My diagnostic impression and treatment plans were discussed at length with the patient. All side effects as well as drug-drug interactions and risks discussed at length. Ample opportunity was offered and encouraged to ask questions during this visit and patient appreciated the answers given by me andverbzalised statisfcation in the answers given. Thank you for allowing us to participate in the care of Yan Camargo. If you have any questions or concerns please feel free to call our office at [phone]. I would be happy to be of further assistance for Yan Camargo wellbeing. Enrique Fuentes MD Enterprise Architect, Division of Cardiology [facility] documented in this encounter Plan of Treatment Date Type Specialty Care Team Description 07/24/2020 Office Visit Infectious Disease [place] [facility] [address] [place] [address] 08/21/2020 Office Visit Cardiology Sammi Fuentes MD [address] [place], [place] [phone] Name Type Priority Associated Diagnoses Order S chedule EKG-12 LEAD ROUTINE HEART STATION Routine GARCIA (dyspnea on 1 Oc currences exertion) starting 07/17/2020 Dyslipidemia until 07/18/2021 Type 2 diabetes mellitus without complication, without long-term current use of insulin THYROID STIMULATING LAB Routine GARCIA (dyspnea on Order ed: 07/17/2020 HORMONE exertion) Dyslipidemia Type 2 diabetes mellitus without complication, without long-term current use of insulin EKG-12 LEAD ROUTINE HEART STATION Routine GARCIA (dyspnea on Orde red: 07/17/2020 exertion) Dyslipidemia Type 2 diabetes mellitus without [...] 2025 documented as of this encounter Results TROPONIN I (07/18/2020 8:17 AM WARRANTY CLERK) Pathologist Sig nature TROPONIN I 0.022 <=0.034 ng/mL [facility] Specimen Blood Narrative Performed At Equal or Less than 0.034 ng/ml---Normal [facility] Note: Cardiac troponin begins to [...] patient's use of biotin. Performing Organization Address [facility] Phone Number [facility] CLIA: [id number] [place] [address] N-TERMINAL PRO-BNP (07/18/2020 8:17 AM WARRANTY CLERK) Pathologist [facility] [employer] NT-proBNP 397 (H) <=125 pg/mL [facility] Specimen Blood Narrative Performed At Biotin has been reported to cause a negative [facility] bias, interpret results relative to patient's use of biotin. Performing Organization Address [facility] Phone Number [facility] CLIA: [id number] [place] [address] LIPID PANEL (28555)(TOTAL CHOLESTEROL, TRIGLYCERIDES, HDL) (07/18/2020 8:17 AM WARRANTY CLERK) [employer] CHOL 101 (L) 120 - 200 mg/dL [facility] HDL 20 (L) >40 mg/dL [facility] HDLC RATIO 5.1 (H) <=5.0 [facility] TRIG 295 (H) 30 - 170 mg/dL [facility] LDL CHOL 22 <=160 mg/dL [facility] VLDL 59 5 - 60 mg/dL [facility] Specimen Blood Performing Organization Address [facility] Phone Number [facility] CLIA: [id number] [place] [address] LAB[address] [facility] COMP. METABOLIC PANEL (25262) (07/18/2020 8:17 AM WARRANTY CLERK) Pathologist [facility] nature NA 140 135 - 145 [facility] mmol/L [facility] K 4.2 3.5 - 5.0 [facility] mmol/L [facility] CL 98 98 - 108 mmol/L [facility] CO2 TOTAL 31 23 - 31 mmol/L [facility] AGAP 11 2 - 16 [facility] BUN 12 7 - 23 mg/dL [facility] GLUCOSE 119 (H) 70 - 110 mg/dL [facility] CREATININE 1.03 0.60 - 1.25 [facility] mg/dL [facility] TOTAL BILI 0.6 0.1 - 1.1 mg/dL [facility] CALCIUM 10.1 8.6 - 10.6 [facility] mg/dL [facility] T PROTEIN 7.3 6.3 - 8.2 g/dL [facility] ALBUMIN 4.5 3.5 - 5.0 g/dL [facility] ALK PHOS 64 34 - 122 U/L [facility] ALTv 19 5 - 50 U/L [facility] AST(SGOT) 19 13 - 40 U/L [facility] eGFR Calculation 78.1 mL/min/1.73m2 [facility] ([facility]ATORY Indonesian) eGFR Calculation 94.7 mL/min/1.73m2 [facility] () [facility] Specimen Blood Narrative Performed At [facility] Glomerular Filtration Rate (GFR) [facility] and Staging of Kidney Disease* + [...] tests). Performing Organization Address City/State/Zipcode Phone Number [facility] CLIA: [id number] [place] [address] CBC WITH DIFF (07/18/2020 8:17 AM WARRANTY CLERK) Pathologist Sig nature WBC 7.84 4.20 - 10.70 [facility] 10*3/L [facility] RBC 6.08 (H) 4.26 - 5.52 [facility] 10*6/L [facility] HGB 19.0 (H) 12.2 - 16.4 [facility] g/dL [facility] HCT 54.6 (H) 38.4 - 49.3 % [facility] MCV 89.8 81.7 - 95.6 fL [facility] MCH 31.3 26.1 - 32.7 pg [facility] MCHC 34.8 31.2 - 35.0 [facility] g/dL [facility] RDW-SD 42.7 38.5 - 51.6 fL [facility] RDW-CV 13.1 12.1 - 15.4 % [facility] PLT 170 150 - 328 [facility] 10*3/L [facility] MPV 10.9 9.8 - 13.0 fL [facility] NRBC/100 WBC 0.0 0.0 - 10.0 /100 [facility] WBCs [facility] NRBC x10^3 <0.01 10*3/L [facility] GRAN MAT (NEUT) % 67.6 % [facility] IMM GRAN % 0.40 % [facility] LYMPH % 19.1 % [facility] MONO % 11.2 % [facility] EOS % 1.1 % [facility] BASO % 0.6 % [facility] GRAN MAT x10^3(ANC) 5.29 1.99 - 6.95 [facility] 10*3/uL HOSPITAL LABORATORY IMM GRAN x10^3 0.03 0.00 - 0.06 [facility] 10*3/uL HOSPITAL LAB[facility]ATORY LYMPH x10^3 1.50 1.09 - 3.23 [facility] 10*3/uL HOSPITAL LAB[facility]ORY MONO x10^3 0.88 0.36 - 1.02 [facility] 10*3/uL HOSPITAL LABORATORY EOS x10^3 0.09 0.06 - 0.53 [facility] 10*3/uL [facility] BASO x10^3 0.05 0.01 - 0.09 [facility] 10*3/uL [facility] Specimen Blood Performing Organization Address City/State/Zipcode Phone Number [facility] CLIA: [id number] [place] [address] ECHO ROUTINE W/DOPPLER COLOR Preferred Location: [facility] (07/17/2020 2:07 PM WARRANTY CLERK) Specimen Performing Organization Address City/[facility] E[facility] documented in this encounter Visit Diagnoses Diagnosis Chest pain, cardiac - Primary Chest pain, unspecified GARCIA (dyspnea on exertion) Other dyspnea and respiratory abnormalit y Dyslipidemia Other and unspecified hyperlipidemia Type 2 diabetes mellitus without complic ation, without long-term current use of insulin Essential hypertension Unspecified essential hypertension Cigarette nicotine dependence without co mplication Tobacco use disorder Abnormal ECG Nonspecific abnormal electrocardiogram ( ECG) (EKG) Obesity, unspecified classification, uns pecified obesity type, unspecified whether serious comorbidity present 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 Medicare A & B ent [id number] [place] [address] [employer] [id number] 2019-Pres [address] [place] [id number] [place] [address] documented as of this encounter
--- OUTSIDE RECORDS SUMMARY | 2020-07-24 19:57 | XMS REPORT | Summary of Care ---
:1975 Author Organization [facility] Address [address] [place] [address] Care Team Providers Name Role Phone Henry Primary Care Provider Reason for Visit Reason Comments Pre-Visit Planning Encounter Details Date Type Department Care Team Description 07/21/2020 Telephone [facility] Sammi Fuentes , Pre-Visit Planning and Clinics [address] [facility] [address] [place] [address] [address] Allergies No Known Allergiesdocumented as of this encounter (statuses as of 07/21/2020) Medications Medication Sig Dispensed Refills Start Date End Date Status metFORMIN 1,000 mg Take 1,000 mg by 0 Active tablet mouth daily with breakfast. empagliflozin Take 25 [...] daily. prn dolutegravir (TIVICAY) Take 1 tablet by 30 tablet 5 11/21/2019 Active 50 mg tabletIndications: mouth daily. Symptomatic HIV infection emtricitabine-tenofovir Take 1 tablet by 30 tablet 5 0 Active alafen (DESCOVY) mouth daily. tabletIndications: Symptomatic HIV infection rosuvastatin 40 mg Take 40 mg by 0 Active tablet mouth at bedtime. insulin detemir (LEVEMIR inject 50 Units 0 Active FLEXPEN SC) under the skin 2 (two) [...] 5 mg by 0 Active mouth daily. ISOSORBIDE MONONITRATE TAKE 1 TABLET BY 90 tablet 1 07/21/2020 Active 60 mg 24 hr MOUTH EVERY DAY tabletIndications: GARCIA (dyspnea on exertion), Dyslipidemia, Type 2 diabetes mellitus without complication, without long-term current use of insulin documented as of this encounter (statuses as of 07/21/2020) Active Problems Not on filedocumented as of this encounter (statuses as of 07/21/2020) Immunizations Name Administration Dates Next Due HEPLISAV [...] with No / Unsure 07/17/2020 9:16 AM PROCESS ARCHITECT someone who was confirmed or suspected to have Coronavirus / COVID-19? documented as of this encounter Last Filed Vital Signs Not on filedocumented in this encounter Miscellaneous Notes Telephone Encounter - Shell Zhong, RN - 07/21/2020 12:21 PM CSTPt. called for pre procedure instructions prior to his procedure scheduled on 07/23/20. Pt. was informed that he needs to have a Covid test prior to his procedure but refused to have it done and wants to cancel the procedure if Covid test is required. Pt's concern was escalated to nurse manager payroll. PSS and his provider notified. ESS ARCHITECT documented in this encounter Plan of Treatment Date Type Specialty Care Team Description 07/23/2020 Appointment Cardiac Ep Tech Outpt-[facility] 07/24/2020 Office Visit Infectious Disease [facility] [address] [place] [phone] 08/21/2020 Office Visit Cardiology Sammi Fuentes MD [address] [place], [place] [phone] Health Maintenance Due Date Last Done Comments PNEUMOCOCCAL 0-64 YEARS 1981 COMBINED SERIES (1 of 3 - PCV13) EYE EXAM 1985 URINE MICROALBUMIN 1985 FOOT EXAM 1993 DTaP,Tdap,and Td Vaccines (1 1994 - Tdap) INFLUENZA VACCINE (#1) 2020 05/10/2019 Postponed from 04/14/2020 (Vaccine not lawson ilable) Depression Screening 10/07/2020 10/07/2019 HgA1C 01/16/2021 07/18/2020 CREATININE (SERUM) 07/18/2021 07/18/2020, 05/10/2019 LDL-C 07/18/2021 07/18/2020, 05/10/2019 Colorectal Cancer Screening 2025 documented as of this encounter Results Not on filedocumented in this encounter Insurance Payer Benefit Plan / Subscriber ID Effective Phone Address T ype Group Dates MEDICARE MEDICARE PART [id number] 2017-Pres [phone] Medicare A & B ent [id number] [place] [address] [employer] [id number] 2019-Pres [address] [place] [id number] [place] [address] documented as of this encounter
--- OUTSIDE RECORDS SUMMARY | 2020-07-24 19:57 | XMS REPORT | Summary of Care ---
:1975 Author Organization [facility] Address [address] [place] [address] Care Team Providers Name Role Phone Henry Primary Care Provider Reason for Visit Reason Comments Orders Heart cath & Covid test Encounter Details Date Type Department Care Team Description 07/21/2020 Telephone [facility] Sammi Fuentes Orders (Heart cath & Cardiology- Zak Andino MD Covid test) [facility] [address] [facility] [address] [place] [phone] Allergies No Known Allergiesdocumented as of this [...] with No / Unsure 07/17/2020 9:16 AM WEEKEND CAREGIVER someone who was confirmed or suspected to have Coronavirus / COVID-19? documented as of this encounter Last Filed Vital Signs Not on filedocumented in this encounter Miscellaneous Notes Telephone Encounter - Deanne Berry RN - 07/21/2020 11:47 AM CSTCalled patient to inform him that they are trying to schedule his heart cath for . He will need to be covid tested before the procedure and it would need to be done today. Patient adamantly refused any covid testing stating that "he is not going to give the government anymoney." He WILL NOT take a covid test. informed Dr. Fuentes. Dr. Fuentes advised to have him call the [employer]orer ship[employer] and they can instruct him on how the heart cath will be done since he wont be covid tested. Patient to call [employer]. documented in this encounter Plan of Treatment Date Type Specialty Care Team Description 07/23/2020 Appointment Cardiac Safety And Health Consultant Outpt-[facility] 07/24/2020 Office Visit [facility]ious Disease [facility] [address] [place] [phone] 08/21/2020 Office Visit Cardiology Sammi Fuentes MD [address] [place], [place] [phone] Health Maintenance Due Date Last Done [...] T ype Group Dates MEDICARE MEDICARE PART [id number] 2017-Pres [phone] [address] Medicare A & B ent [id number] [place] [id number] [employer] [id number] 2019-Pres [address] [place] [id number] [place] [address] documented as of this encounter
--- OUTSIDE RECORDS SUMMARY | 2020-07-24 19:57 | XMS REPORT | Summary of Care ---
:1975 Author Organization [facility] Address [address] [place] [address] Care Team Providers Name Role Phone Henry Primary Care Provider Reason for Visit Reason Comments Refill Request Encounter Details Date Type Department Care Team Description 07/17/2020 Refill [facility] Cardiology- Sammi Fuentes MD Refill Request [address], [address] [place] [address] [place] [address] [phone] Allergies No Known Allergiesdocumented as of this encounter (statuses as of 07/21/2020) Medications Medication Sig Dispensed Refills Start Date End Date Status metFORMIN 1,000 mg Take 1,000 mg 0 Active tablet by mouth daily with breakfast. empagliflozin Take 25 mg by 0 Ac tive (JARDIANCE) 25 mg Tab mouth daily before a meal. SITagliptin (JANUVIA) Take 100 mg 0 Active 100 mg tablet by mouth daily. Potassium Take by 0 Active Bicarb-Citric Acid 10 mouth daily. mEq TbEF furosemide 40 mg Take 40 mg by 0 Active tablet mouth daily. pantoprazole sodium Take 40 mg by 0 Active (PANTOPRAZOLE ORAL) mouth daily. promethazine HCl Take 40 mg by 0 Active (PROMETHAZINE ORAL) mouth daily. aspirin 81 mg Take 81 mg by 0 Ac tive chewable tablet mouth daily. traMADol 50 mg tablet Take 50 mg by 0 Active mouth daily. 2-3x/daily cyclobenzaprine 10 mg Take 10 mg by 0 Active tablet mouth 3 (three) times daily. prn dolutegravir Take 1 tablet 30 tablet 5 11/21/2019 Ac tive (TIVICAY) 50 mg by mouth tabletIndications: daily. Symptomatic HIV infection emtricitabine-tenofov Take 1 tablet 30 tablet 5 11/21/2019 Active ir alafen (DESCOVY) by mouth tabletIndications: daily. Symptomatic HIV infection rosuvastatin 40 mg [...] by 0 A ctive tablet mouth daily. ISOSORBIDE TAKE 1 TABLET 90 tablet 1 07/21/2020 Acti ve MONONITRATE 60 mg 24 BY MOUTH hr tabletIndications: EVERY DAY GARCIA (dyspnea on exertion), Dyslipidemia, Type 2 diabetes mellitus without complication, without long-term current use of insulin isosorbide Take 1 tablet 30 tablet 2 07/17/2020 Disc ontinued mononitrate 60 mg 24 by mouth 0 hr tabletIndications: daily for 30 GARCIA (dyspnea on days. exertion), Dyslipidemia, Type 2 diabetes mellitus without complication, without long-term current use of insulin documented as of this encounter (statuses as of 07/21/2020) Active Problems Not on filedocumented as of this encounter (statuses as of 07/21/2020) Immunizations Name Administration Dates Next Due HEPLISAV HEP B, ADULT 2 DOSE, IM 09/13/2019, 08/09/2019/2 11/2019 Hepatitis A Adult 08/09/2019 01/08/2020 Influenza Virus [...] with No / Unsure 07/17/2020 9:16 AM PLANNER INTERNSHIP someone who was confirmed or suspected to have Coronavirus / COVID-19? documented as of this encounter Last Filed Vital Signs Not on filedocumented in this encounter Plan of Treatment Date Type Specialty Care Team Description 07/24/2020 Office Visit [facility]ious Disease [facility] [address] [place] [phone] 08/21/2020 Office Visit Cardiology Sammi Fuentes MD [address] [place], [place] [phone] Health Maintenance Due Date Last Done [...] T ype Group Dates MEDICARE MEDICARE PART [id number] 2017-Pres [phone] Medicare A & B ent [id number] [place] [id number] [employer] [id number] 2019-Pres [address] [place] [id number] [place] [address] documented as of this encounter
--- OUTSIDE RECORDS SUMMARY | 2020-07-24 19:57 | XMS REPORT | Summary of Care ---
:1975 Author Organization [facility] Address [address] [place] [address] Care Team Providers Name Role Phone Henry [...] MD Thu [address] [phone] (STAT) Status Reason Specialty Diagnoses / Referred By Referred To Procedures Contact Contact Closed Echocardiograph Diagnoses GARCIA (dyspnea on exertion) Dyslipidemia Type 2 diabetes mellitus without complication, without long-term current use of insulin Fuentes, Sendil Procedures ECHO ROUTINE W/DOPPLER COLOR Preferred Location: [facility] MD Thu [address] [facility] [address] [phone] Reason for Visit Reason Comments New Patient Establish Care Ekg Done today in office (Routine) Status Reason Specialty Diagnoses / Procedures Referred By Porfirio barnett Referred To Contact Closed Cardiology Procedures Mohan Figueroa CONSULT/REFERRAL [address] [place] [address] Phone: Encounter Details Date Type Department Care Team Description 07/17/2020 Office Visit [facility] Fuentes, Sendil Chest pain, c ardiac (Primary Dx); Cardiology- MD JOSE Funes (dyspnea on exertion); [address]; [address], [address] Type 2 diabetes mellitus without complic ation, without long-term current use of insulin; [place] Essential hyper tension; [id number] Cigarette nicotine dependence without co mplication; [phone] Abnormal ECG; Obesity, unspecified classification, unspecified obesity type, unspecified whether serious comorbidity present; Coronary artery disease involving moapa coronary artery of moapa heart with angina pectoris Allergies No Known [...] with No / Unsure 07/17/2020 9:16 AM SNOW GROOMER someone who was confirmed or suspected to have Coronavirus / COVID-19? documented as of this encounter Last Filed Vital Signs Vital Sign Reading Time Taken Comments Blood Pressure 133/90 07/17/2020 9:42 AM SNOW GROOMER Pulse 92 07/17/2020 9:42 AM SNOW GROOMER Temperature - - Respiratory Rate 19 07/17/2020 9:42 AM SNOW GROOMER Oxygen Saturation 95% 07/17/2020 9:42 AM SNOW GROOMER Inhaled Oxygen Concentration - - Weight 99.8 kg (220 lb) 07/17/2020 9:42 AM SNOW GROOMER Height 167.6 cm (5' 6") 07/17/2020 9:42 AM SNOW GROOMER Body Mass Index 35.51 07/17/2020 9:42 AM SNOW GROOMER documented in this encounter Progress Notes Sammi Fuentes MD - 07/17/2020 9:30 AM CST [facility] Cardiology Consult Note Patient: Yan [...] CAD (coronary artery disease) late 30s h/o RI, stent x 2 (placed at separate times) [...] file Gets together: Not on file Attends voodoo service: Not on file Active member of [...] ROUTINE CBC WITH DIFF COMP. METABOLIC PANEL (32742) LIPID PANEL (10170)(TOTAL CHOLESTEROL, TRIGLYCERIDES, HDL) N-TERMINAL PRO-BNP THYROID STIMULATING HORMONE EKG-12 LEAD ROUTINE isosorbide mononitrate 60 mg 24 hr tablet ECHO ROUTINE W/DOPPLER COLOR Preferred Location: [facility] TROPONIN I CANCELED: ECHO ROUTINE W/DOPPLER COLOR Preferred Location: [facility] 3. Dyslipidemia EKG-12 LEAD ROUTINE CBC WITH DIFF COMP. METABOLIC PANEL (62451) LIPID PANEL (59211)(TOTAL CHOLESTEROL, TRIGLYCERIDES, HDL) N-TERMINAL PRO-BNP THYROID STIMULATING HORMONE EKG-12 LEAD ROUTINE isosorbide mononitrate 60 mg 24 hr tablet ECHO ROUTINE W/DOPPLER COLOR Preferred Location: [facility] TROPONIN I CANCELED: ECHO ROUTINE W/DOPPLER COLOR Preferred Location: [facility] 4. Type 2 diabetes mellitus without complication, without long-term current use of insulin EKG-12 LEAD ROUTINE CBC WITH DIFF COMP. METABOLIC PANEL (61246) LIPID PANEL (88591)(TOTAL CHOLESTEROL, TRIGLYCERIDES, HDL) N-TERMINAL PRO-BNP THYROID STIMULATING HORMONE EKG-12 LEAD ROUTINE isosorbide mononitrate 60 mg 24 hr tablet ECHO ROUTINE W/DOPPLER COLOR Preferred Location: [facility] TROPONIN I CANCELED: ECHO ROUTINE W/DOPPLER COLOR Preferred Location: [facility] 5. Essential hypertension 6. Cigarette nicotine dependence without complication 7. Abnormal ECG 8. Obesity, unspecified classification, unspecified obesity type, unspecified whether serious comorbidity present 9. Coronary artery disease involving moapa coronary artery of moapa heart with angina pectoris Exertional chest pain/worsening [...] will try to get the records from [facility]. Continue with aspirin 81 daily, isosorbide 60 [...] Procedures CBC WITH DIFF COMP. METABOLIC PANEL (65961) LIPID PANEL (98724)(TOTAL CHOLESTEROL, TRIGLYCERIDES, HDL) N-TERMINAL PRO-BNP THYROID STIMULATING HORMONE TROPONIN I ECHO ROUTINE W/DOPPLER COLOR Preferred Location: [facility] Requested Prescriptions Signed Prescriptions Disp Refills [...] feel free to call our office at [phone]. I would be happy to be of further assistance for Yan Camargo wellbeing. Enrique Fuentes MD Metal Drill Press Operator, Division of Cardiology [facility] documented in this encounter Plan of Treatment Date Type Specialty Care Team Description 07/24/2020 Office Visit Infectious Disease [facility] [address] [place] [id number] 08/21/2020 Office Visit Cardiology Sammi Fuentes MD [address] [place], [place] [phone] Name Type Priority Associated [...] encounter Results TROPONIN I (07/18/2020 8:17 AM SNOW GROOMER) Pathologist Sig nature TROPONIN I 0.022 <=0.034 ng/mL [facility] Specimen Blood Narrative Performed At Equal or Less than 0.034 ng/ml---Normal [facility] Note: Cardiac troponin begins to [...] patient's use of biotin. Performing Organization Address [facility] Phone Number [facility] CLIA: [id number] [place] [address] N-TERMINAL PRO-BNP (07/18/2020 8:17 AM SNOW GROOMER) Pathologist [facility] Absolute Antibody NT-proBNP 397 (H) <=125 pg/mL [facility] Specimen Blood Narrative Performed At Biotin has been reported to cause a negative [facility] bias, interpret results relative to patient's use of biotin. Performing Organization Address [facility] Phone Number [facility] CLIA: [id number] [place] [address] LIPID PANEL (06719)(TOTAL CHOLESTEROL, TRIGLYCERIDES, HDL) (07/18/2020 8:17 AM SNOW GROOMER) Prizzm CHOL 101 (L) 120 - 200 mg/dL [facility] HDL 20 (L) >40 mg/dL [facility] HDLC RATIO 5.1 (H) <=5.0 [facility] TRIG 295 (H) 30 - 170 mg/dL [facility] LDL CHOL 22 <=160 mg/dL [facility] VLDL 59 5 - 60 mg/dL [facility] Specimen Blood Performing Organization Address [facility] Phone Number [facility] CLIA: [id number] [place] [address] LAB[address] [facility] COMP. METABOLIC PANEL (07914) (07/18/2020 8:17 AM SNOW GROOMER) Pathologist [facility] nature NA 140 135 - 145 [facility] mmol/L [facility] K 4.2 3.5 - 5.0 [facility] mmol/L [facility] CL 98 98 - 108 mmol/L [facility] CO2 TOTAL 31 23 - 31 mmol/L [facility] AGAP 11 2 - 16 [facility] BUN 12 7 - 23 mg/dL [facility] GLUCOSE 119 (H) 70 - 110 mg/dL [facility] CREATININE 1.03 0.60 - 1.25 [facility] mg/dL [facility] TOTAL BILI 0.6 0.1 - 1.1 mg/dL [facility] CALCIUM 10.1 8.6 - 10.6 [facility] mg/dL [facility] T PROTEIN 7.3 6.3 - 8.2 g/dL [facility] ALBUMIN 4.5 3.5 - 5.0 g/dL [facility] ALK PHOS 64 34 - 122 U/L [facility] ALTv 19 5 - 50 U/L [facility] AST(SGOT) 19 13 - 40 U/L [facility] eGFR Calculation 78.1 mL/min/1.73m2 [facility] (Non-[facility] LABORATORY Fijian) eGFR Calculation 94.7 mL/min/1.73m2 [facility] () [facility] Specimen Blood Narrative Performed At Association of Glomerular Filtration Rate (GFR) [facility] and Staging of Kidney Disease* + [...] tests). Performing Organization Address City/State/Zipcode Phone Number [facility] CLIA: [id number] [place] [address] CBC WITH DIFF (07/18/2020 8:17 AM SNOW GROOMER) Pathologist Sig nature WBC 7.84 4.20 - 10.70 [facility] 10*3/L [facility] RBC 6.08 (H) 4.26 - 5.52 [facility] 10*6/L [facility] HGB 19.0 (H) 12.2 - 16.4 [facility] g/dL [facility] HCT 54.6 (H) 38.4 - 49.3 % [facility] MCV 89.8 81.7 - 95.6 fL [facility] MCH 31.3 26.1 - 32.7 pg [facility] MCHC 34.8 31.2 - 35.0 [facility] g/dL [facility] RDW-SD 42.7 38.5 - 51.6 fL [facility] RDW-CV 13.1 12.1 - 15.4 % [facility] PLT 170 150 - 328 [facility] 10*3/L [facility] MPV 10.9 9.8 - 13.0 fL [facility] NRBC/100 WBC 0.0 0.0 - 10.0 /100 [facility] WBCs [facility] NRBC x10^3 <0.01 10*3/L [facility] GRAN MAT (NEUT) % 67.6 % [facility] IMM GRAN % 0.40 % [facility] LYMPH % 19.1 % [facility] MONO % 11.2 % [facility] EOS % 1.1 % [facility] BASO % 0.6 % [facility] GRAN MAT x10^3(ANC) 5.29 1.99 - 6.95 [facility] 10*3/uL HOSPITAL LABORATORY IMM GRAN x10^3 0.03 0.00 - 0.06 [facility] 10*3/uL HOSPITAL LAB[facility]ORY LYMPH x10^3 1.50 1.09 - 3.23 [facility] 10*3/uL HOSPITAL LABORATORY MONO x10^3 0.88 0.36 - 1.02 [facility] 10*3/uL HOSPITAL LABORATORY EOS x10^3 0.09 0.06 - 0.53 [facility] 10*3/uL [facility] BASO x10^3 0.05 0.01 - 0.09 [facility] 10*3/uL [facility] Specimen Blood Performing Organization Address City/State/Zipcode Phone Number [facility] CLIA: [id number] [place] [address] ECHO ROUTINE W/DOPPLER COLOR Preferred Location: [facility] (07/17/2020 2:07 PM SNOW GROOMER) Specimen Performing Organization Address City/[facility] Phone Number ECHO documented in [...] serious comorbidity present Coronary artery disease involving moapa coronary artery of moapa heart with angina pectoris documented in this encounter Insurance Payer Benefit Plan / Subscriber ID Effective Phone Address T ype Group Dates MEDICARE MEDICARE PART [id number] 2017-Pres [phone] Medicare A & B ent [id number] [place] [address] [employer] [id number] 2019-Pres [address] [place] [id number] [place] [address] documented as of this encounter
--- OUTSIDE RECORDS SUMMARY | 2020-07-24 19:58 | XMS REPORT | Summary of Care ---
:1975 Author Organization [facility] Address [address] [place] [address] Care Team Providers Name Role Phone Henry [...] MD Thu [address] [phone] (STAT) Status Reason Specialty Diagnoses / Referred By Referred To Procedures Contact Contact Closed Echocardiograph Diagnoses GARCIA (dyspnea on exertion) Dyslipidemia Type 2 diabetes mellitus without complication, without long-term current use of insulin Fuentes, Sendil Procedures ECHO ROUTINE W/DOPPLER COLOR Preferred Location: [facility] MD Thu [address] [facility] [address] R [address] [phone] Reason for Visit Reason Comments New Patient Establish Care Ekg Done today in office (Routine) Status Reason Specialty Diagnoses / Procedures Referred By Porfirio barnett Referred To Contact Closed Cardiology Procedures Mohan Figueroa CONSULT/REFERRAL [address] [place] [address] Phone: Encounter Details Date Type Department Care Team Description 07/17/2020 Office Visit [facility] Fuentes, Sendil Chest pain, c ardiac (Primary Dx); Cardiology- MD JOSE Funes (dyspnea on exertion); 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 Pitavastatin Take by 0 Discont inued (LIVALO) 4 mg Tab mouth daily. 0 (Therapy completed) isosorbide Take 1 30 tablet 2 07/17/2020 Disconti nued mononitrate 60 mg 24 tablet by 0 hr mouth daily tabletIndications: for 30 days. [...] with No / Unsure 07/17/2020 9:16 AM TRICHOLOGIST someone who was confirmed or suspected to have Coronavirus / COVID-19? documented as of this encounter Last Filed Vital Signs Vital Sign Reading Time Taken Comments Blood Pressure 133/90 07/17/2020 9:42 AM TRICHOLOGIST Pulse 92 07/17/2020 9:42 AM TRICHOLOGIST Temperature - - Respiratory Rate 19 07/17/2020 9:42 AM TRICHOLOGIST Oxygen Saturation 95% 07/17/2020 9:42 AM TRICHOLOGIST Inhaled Oxygen Concentration - - Weight 99.8 kg (220 lb) 07/17/2020 9:42 AM TRICHOLOGIST Height 167.6 cm (5' 6") 07/17/2020 9:42 AM TRICHOLOGIST Body Mass Index 35.51 07/17/2020 9:42 AM TRICHOLOGIST documented in this encounter Progress Notes Sammi Fuentes MD - 07/17/2020 9:30 AM CST [facility] Cardiology Consult Note Patient: Yan [...] CAD (coronary artery disease) late 30s h/o NV, stent x 2 (placed at separate times) [...] file Gets together: Not on file Attends nondenominational service: Not on file Active member of [...] ROUTINE CBC WITH DIFF COMP. METABOLIC PANEL (05515) LIPID PANEL (23599)(TOTAL CHOLESTEROL, TRIGLYCERIDES, HDL) N-TERMINAL PRO-BNP THYROID STIMULATING HORMONE EKG-12 LEAD ROUTINE isosorbide mononitrate 60 mg 24 hr tablet ECHO ROUTINE W/DOPPLER COLOR Preferred Location: [facility] TROPONIN I CANCELED: ECHO ROUTINE W/DOPPLER COLOR Preferred Location: [facility] 3. Dyslipidemia EKG-12 LEAD ROUTINE CBC WITH DIFF COMP. METABOLIC PANEL (43314) LIPID PANEL (76857)(TOTAL CHOLESTEROL, TRIGLYCERIDES, HDL) N-TERMINAL PRO-BNP THYROID STIMULATING HORMONE EKG-12 LEAD ROUTINE isosorbide mononitrate 60 mg 24 hr tablet ECHO ROUTINE W/DOPPLER COLOR Preferred Location: [facility] TROPONIN I CANCELED: ECHO ROUTINE W/DOPPLER COLOR Preferred Location: [facility] 4. Type 2 diabetes mellitus without complication, without long-term current use of insulin EKG-12 LEAD ROUTINE CBC WITH DIFF COMP. METABOLIC PANEL (11570) LIPID PANEL (52806)(TOTAL CHOLESTEROL, TRIGLYCERIDES, HDL) N-TERMINAL PRO-BNP THYROID STIMULATING HORMONE EKG-12 LEAD ROUTINE isosorbide mononitrate 60 mg 24 hr tablet ECHO ROUTINE W/DOPPLER COLOR Preferred Location: [facility] TROPONIN I CANCELED: ECHO ROUTINE W/DOPPLER COLOR Preferred Location: [facility] 5. Essential hypertension 6. Cigarette nicotine dependence without complication 7. Abnormal ECG 8. Obesity, unspecified classification, unspecified obesity type, unspecified whether serious comorbidity present 9. 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 Continue with aspirin 81 daily, [...] Procedures CBC WITH DIFF COMP. METABOLIC PANEL (30853) LIPID PANEL (21026)(TOTAL CHOLESTEROL, TRIGLYCERIDES, HDL) N-TERMINAL PRO-BNP THYROID STIMULATING HORMONE TROPONIN I ECHO ROUTINE W/DOPPLER COLOR Preferred Location: [facility] Requested Prescriptions Signed Prescriptions Disp Refills [...] feel free to call our office at [phone]. I would be happy to be of further assistance for Yan Camargo wellbeing. Enrique Fuentes MD Branch Administrator, Division of Cardiology [facility] documented in this encounter Plan of Treatment Date Type Specialty Care Team Description 07/23/2020 Appointment Cardiac Gas Mask Inspector Outpt-Marcela, Ccl 07/24/2020 Office Visit Infectious Disease [facility] [address] [place] [phone] 08/21/2020 Office Visit Cardiology Sammi Fuentes MD [address] [place], [place] [phone] Name Type Priority Associated [...] encounter Results TROPONIN I (07/18/2020 8:17 AM TRICHOLOGIST) Pathologist Sig nature TROPONIN I 0.022 <=0.034 ng/mL [facility] Specimen Blood Narrative Performed At Equal or Less than 0.034 ng/ml---Normal [facility] Note: Cardiac troponin begins to rise [...] patient's use of biotin. Performing Organization Address City/[facility]/Zipcode Phone Number [facility] CLIA: [id number] [place] [id number] LABORATORY [address] N-TERMINAL PRO-BNP (07/18/2020 8:17 AM TRICHOLOGIST) Pathologist [facility] [place] NT-proBNP 397 (H) <=125 pg/mL [facility] Specimen Blood Narrative Performed At Biotin has been reported to cause a negative [facility] bias, interpret results relative to patient's use of biotin. Performing Organization Address City/State/Zipcode Phone Number [facility] CLIA: [id number] [place] [address] LIPID PANEL (98673)(TOTAL CHOLESTEROL, TRIGLYCERIDES, HDL) (07/18/2020 8:17 AM TRICHOLOGIST) Pathologist Sig nature CHOL 101 (L) 120 - 200 mg/dL [facility] HDL 20 (L) >40 mg/dL [facility] HDLC RATIO 5.1 (H) <=5.0 [facility] TRIG 295 (H) 30 - 170 mg/dL [facility] LDL CHOL 22 <=160 mg/dL [facility] VLDL 59 5 - 60 mg/dL [facility] Specimen Blood Performing Organization Address City/State/Zipcode Phone Number [facility] CLIA: [id number] [place] [address] COMP. METABOLIC PANEL (02515) (07/18/2020 8:17 AM TRICHOLOGIST) [facility] nature NA 140 135 - 145 [facility] mmol/L [facility] K 4.2 3.5 - 5.0 [facility] mmol/L [facility] CL 98 98 - 108 mmol/L [facility] CO2 TOTAL 31 23 - 31 mmol/L [facility] AGAP 11 2 - 16 [facility] BUN 12 7 - 23 mg/dL [facility] GLUCOSE 119 (H) 70 - 110 mg/dL [facility] CREATININE 1.03 0.60 - 1.25 [facility] mg/dL [facility] TOTAL BILI 0.6 0.1 - 1.1 mg/dL [facility] CALCIUM 10.1 8.6 - 10.6 [facility] mg/dL [facility] T PROTEIN 7.3 6.3 - 8.2 g/dL [facility] ALBUMIN 4.5 3.5 - 5.0 g/dL [facility] ALK PHOS 64 34 - 122 U/L [facility] ALTv 19 5 - 50 U/L [facility] AST(SGOT) 19 13 - 40 U/L [facility] eGFR Calculation 78.1 mL/min/1.73m2 [facility] ([facility] LABORATORY [place]) eGFR Calculation 94.7 mL/min/1.73m2 [facility] () [facility] Specimen Blood Narrative Performed At Association of Glomerular Filtration Rate (GFR) [facility] and Staging of Kidney Disease* [...] tests). Performing Organization Address City/State/Zipcode Phone Number [facility] CLIA: [id number] [place] [address] CBC WITH DIFF (07/18/2020 8:17 AM TRICHOLOGIST) Pathologist Sig nature WBC 7.84 4.20 - 10.70 [facility] 10*3/L [facility] RBC 6.08 (H) 4.26 - 5.52 [facility] 10*6/L [facility] HGB 19.0 (H) 12.2 - 16.4 [facility] g/dL [facility] HCT 54.6 (H) 38.4 - 49.3 % [facility] MCV 89.8 81.7 - 95.6 fL [facility] MCH 31.3 26.1 - 32.7 pg [facility] MCHC 34.8 31.2 - 35.0 [facility] g/dL [facility] RDW-SD 42.7 38.5 - 51.6 fL [facility] RDW-CV 13.1 12.1 - 15.4 % [facility] PLT 170 150 - 328 [facility] 10*3/L [facility] MPV 10.9 9.8 - 13.0 fL [facility] NRBC/100 WBC 0.0 0.0 - 10.0 /100 [facility] WBCs [facility] NRBC x10^3 <0.01 10*3/L [facility] GRAN MAT (NEUT) % 67.6 % [facility] IMM GRAN % 0.40 % [facility] LYMPH % 19.1 % [facility] MONO % 11.2 % [facility] EOS % 1.1 % [facility] BASO % 0.6 % [facility] GRAN MAT x10^3(ANC) 5.29 1.99 - 6.95 [facility] 10*3/uL [facility] IMM GRAN x10^3 0.03 0.00 - 0.06 [facility] 10*3/uL [facility] LYMPH x10^3 1.50 1.09 - 3.23 [facility] 103/uL [facility] MONO x10^3 0.88 0.36 - 1.[address]uL [facility] EOS x10^3 0.09 0.06 - 0.53 [facility] 103/uL [facility] BASO x10^3 0.05 0.01 - 0.09 [place] [address]/[facility] LABORATORY Specimen Blood Performing Organization Address City/State/Zipcode Phone Number [facility] CLIA: [id number] [place] [address] ECHO ROUTINE W/DOPPLER COLOR Preferred Location: [facility] (07/17/2020 2:07 PM TRICHOLOGIST) Specimen Performing Organization Address City/State/Zipcode Phone Number ECHO documented in this encounter [...] serious comorbidity present 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 Medicare A & B ent [id number] [place] [phone] [employer] [id number] 2019-Pres [address] [place] [id number] [place] [address] documented as of this encounter
--- OUTSIDE RECORDS SUMMARY | 2020-07-24 19:58 | XMS REPORT | Summary of Care ---
:1975 Author Organization [facility] Address [address] [place] [address] Care Team Providers Name Role Phone Henry Primary Care Provider Reason for Visit Reason Comments Pre-Visit Planning Encounter Details Date Type Department Care Team Description 07/21/2020 Telephone [facility] Sammi Fuentes , Pre-Visit Planning and Clinics [address] [facility] [address] [place] [address] [phone] Allergies No Known Allergiesdocumented as [...] with No / Unsure 07/17/2020 9:16 AM CHECKER CASHIER someone who was confirmed or suspected to have Coronavirus / COVID-19? documented as of this encounter Last Filed Vital Signs Not on filedocumented in this encounter Miscellaneous Notes Telephone Encounter - Sammi Fuentes MD - 07/21/2020 2:20 PM CSTCalled patient and left voice mail to us back. KER CASHIER Telephone Encounter - Shell Zhong, RN - 07/21/2020 12:21 PM CSTPt. called for pre procedure instructions prior to his procedure scheduled on 07/23/20. Pt. was informed that he needs to have a Covid test prior to his procedure but refused to have it done and wants to cancel the procedure if Covid test is required. Pt's concern was escalated to nurse content creation manager. PSS and his provider notified. KER CASHIER documented in this encounter Plan of Treatment Date Type Specialty Care Team Description 07/23/2020 Appointment Cardiac Water Fitness Instructor Outpt-[place] Medrano 07/24/2020 Office Visit Infectious Disease [facility] [address] [place] [phone] 08/21/2020 Office Visit Cardiology Sammi Fuentes MD [address] [place] [phone] Health Maintenance Due Date Last Done [...] T ype Group Dates MEDICARE MEDICARE PART [id number] 2017-Pres [phone] Medicare A & B ent [id number] [place] [phone] [employer] [id number] 2019-Pres [address] [place] [id number] [place] [address] documented as of this encounter
--- OUTSIDE RECORDS SUMMARY | 2020-07-24 19:59 | XMS REPORT | Summary of Care ---
:1975 Author Organization [facility] Address [address] [place] [id number] Care Team Providers Name Role Phone Henry Primary Care Provider Reason for Visit Reason Comments Pre-Visit Planning Encounter Details Date Type Department Care Team Description 07/21/2020 Telephone [facility] Sammi Fuentes , Pre-Visit Planning and Clinics 712 [facility] [address] [place] [address] [address] Allergies No Known Allergiesdocumented as of this encounter (statuses as of 07/22/2020) Medications Medication Sig Dispensed Refills Start Date [...] as of this encounter (statuses as of 07/22/2020) Active Problems Not on filedocumented as of this encounter (statuses as of 07/22/2020) Immunizations Name Administration Dates Next Due HEPLISAV [...] with No / Unsure 07/17/2020 9:16 AM CERAMIC ENGINEER someone who was confirmed or suspected to have Coronavirus / COVID-19? documented as of this encounter Last Filed Vital Signs Not on filedocumented in this encounter Miscellaneous Notes Telephone Encounter - Sammi Fuentes MD - 07/22/2020 11:42 AM CERAMIC ENGINEER Please let the patient know that i got message from [facility] that blood test IGG and IGM cannot be accepted prior to procedure. If he still refusing the nasal COVID test, then its decision. I had tried my best to help him out. Please give him strong ER warning signs and continue with current cardiac meds. Please mail him the labs and Echo reports to him. He has access to my OV notes via my chart. He is more than welcome to get alternate opinion from different institution if he would like. Hello. We cant take the IGG and IGM as a substitute, unfortunately. Thank you, Carrie Giron, MSN, RN, CVRN II Cath/EP Nurse Franchise Sales Representative O: [phone] C: [phone] F: [phone] From: Sammi Fuentes <[email or web address]> Sent: Wednesday, July 22, 2020 10:04 AM To: Carrie Giron <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 From: Carrie Giron <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 I am not aware ;but I will ask Dr. Lemos. 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 If IGG and IGM blood work acceptable in lieu for COVID test. 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 Fuentes. Unfortunately, there no alternatives as all patients are required to have the test 5 days prior to their procedure. It also applies for patients coming through ER, they must have a Covid Test. Although, we dont encourage it, the team can get a test on the day of his appointment if that helps. Testing on the day off will cause increase wait time. Thank you, Carrie Giron, MSN, RN, CVRN II Cath/EP Nurse Franchise Sales Representative O: [phone] C: [phone] F: [phone] From: Sammi Fuentes <[email or web address]> Sent: Tuesday, July 21, 2020 1:46 PM To: Pedro Jasso <[email or web address]>; Yasmine Aleman (Cardiac Catheterization Lab) <[email or web address]>; Carrie Giron <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 Is there any alternatives. He has prior CAD history with HFrEF with cardiac symptoms, hence recommended for coronary angiogram. 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 Jasso is still Manager Managingdirector of accounts receivable and Roxi Aleman will be the interim gastroenterology manager. Ashley last day is this Monday. From my understanding, its above their heads as well. Ailyn Bird [facility] Cardiac Cath/Electrophysiology Lab Patient Allergist/Immunologist Physician II [address] [place] [address] [address] [place] [phone] E-mail:[email or web address] Confidentiality Notice: Confidential Health Information Enclosed Protected Health Information (PHI) is personal and sensitive information related to a persons health care. It is being emailed to you after appropriate authorization from the patient or under circumstances that do not require patient authorization. You, the recipient, are obligated to maintain it in a safe, secure and confidential manner. Re-disclosure without additional patient consent or as permitted by law is prohibited. Unauthorized re-disclosure or failure to maintain confidentiality could subject you to penalties described in federal and state law. 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 I heard abt it. Is there any other alternative for doing the cath without the COVID test. Is Dr Massey rn labor and deliveryphotofinishing laboratory worker ? Can u let me know who is the Nurse gastroenterology manager for rn labor and delivery now. 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 Fuentes, The above patient wants to cxl his cath procedure because he REFUSES to have a COVID test done. He feels that its stupid and unjust for his medical care to be put in jeopardy for a COVID test. ?? Ailyn Bird [facility] Cardiac Cath/Electrophysiology Lab Patient Allergist/Immunologist Physician [address] [place] [phone] E-mail:[email or web address] Confidentiality Notice: Confidential Health Information Enclosed Protected Health Information (PHI) is personal and sensitive information related to a persons health care. It is being emailed to you after appropriate authorization from the patient or under circumstances that do not require patient authorization. You, the recipient, are obligated to maintain it in a safe, secure and confidential manner. Re-disclosure without additional patient consent or as permitted by law is prohibited. Unauthorized re-disclosure or failure to maintain confidentiality could subject you to penalties described in federal and state law. 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 Fuentes, I'm out today and Samantha no longer works with us. There could be availability for if the patient stops his metformin in time and is agreeable to of this week. I have no way of contacting the patient today and he needs to have a covid test prior as well. Ailyn Bird Cardiac Cath/Electrophysiological Lab Patient Allergist/Immunologist Physician [address] [address] [phone] 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 Placed orders for coronary angiogram. Can u please see if we can get him this week or early next week. With regards Dr Fuentes MIC ENGINEER Telephone Encounter - Sammi Fuentes MD - 07/21/2020 2:20 PM CSTCalled patient and left voice mail to us back. MIC ENGINEER Telephone Encounter - Shell Zhong RN - 07/21/2020 12:21 PM CSTPt. called for pre procedure instructions prior to his procedure scheduled on 07/23/20. Pt. was informed that he needs to have a Covid test prior to his procedure but refused to have it done and wants to cancel the procedure if Covid test is required. Pt's concern was escalated to nurse gastroenterology manager. PSS and his provider notified. MIC ENGINEER documented in this encounter Plan of Treatment Date Type Specialty Care Team Description 07/24/2020 Office Visit Infectious Disease Cameron Hyde PA [address] [place] [id number] 08/21/2020 Office Visit Cardiology Sammi Fuentes MD [address] [place], [place] [address] Health Maintenance Due Date [...] T ype Group Dates MEDICARE MEDICARE PART [id number] 2017-Pres [phone] Medicare A & B ent [id number] [place] [id number] [employer] [id number] 2019-Pres [address] [place] [id number] [place] [address] documented as of this encounter
[2020-07-24] MEDS ORDERED: NITROGLYCERIN 0.4 MG/TAB SL ONE (20:31)
[2020-07-24 20:45] LABS: Absolute Lymphocytes (CBC) 1.5 K/uL (0.7-4.9); Basophils % 1.1 % (0-1.3); Hematocrit 48.7 % (39.6-49.0); Lymphocytes % 21.4 % (15.3-44.8); MPV 9.4 fL (7.6-11.3); RBC Red Blood Cell Count 5.56 M/uL (4.33-5.43)
[2020-07-24 20:48] LABS: Protime INR 0.98
[2020-07-24 21:05] LABS: ALT/SGPT 17 U/L (12-78); AST/SGOT 8 U/L (15-37); Albumin 3.7 g/dL (3.4-5.0); Alkaline Phosphatase 67 U/L (45-117); BUN Blood Urea Nitrogen 14 mg/dL (7-18); Bicarbonate 28 mmol/L (21-32); Bilirubin Direct 0.1 mg/dL (0-0.2); Bilirubin Total 0.4 mg/dL (0.2-1.0); Glucose Level 129 mg/dL (74-106); Magnesium 2.5 mg/dL (1.8-2.4); NT PRO-BNP 340 pg/mL (<125); Potassium 3.8 mmol/L (3.5-5.1); Protein, Total 7.6 g/dL (6.4-8.2); Sodium Level 141 mmol/L (136-145); Troponin (Emerg Dept Use Only) < 0.02 ng/mL (0.0-0.045)
--- NOTE | 2020-07-24 21:19 | RAD REPORT ---
EXAM DESCRIPTION: RAD - Chest Single View - 07/24/2020 8:23 pm CLINICAL HISTORY: CHEST PAIN COMPARISON: September 2027 TECHNIQUE: AP portable chest image was obtained 07/24/2020 8:23 pm . FINDINGS: Lungs are clear. Heart and vasculature are normal. No measurable pleural effusion and no p neumothorax. No acute bony abnormality seen. No acute aortic findings suspected. IMPRESSION: No acute cardiopulmonary process. No significant change from comparison.
--- NOTE | 2020-07-24 21:28 | EDPHYS ---
Physician Documentation [facility] Name: Yan Camargo Age: 45 yrs Sex: Male : 1975 Arrival Date: 07/24/2020 Time: 19:54 Bed 3 Private MD: ED Physician Dakota Cummins HPI: 07/24 20:10 This 45 yrs old Male presents to ER via Ambulatory with complaints of Chest cp Pain, Shortness Of Breath. 20:10 The patient or guardian reports chest pain that is located primarily in the anterior cp chest wall, bilaterally. 20:10 Onset: yesterday, and became worse today. The pain does not radiate. Associated signs cp and symptoms: Pertinent positives: shortness of breath, Pertinent negatives: abdominal pain, lower extremity pain, syncope. The chest pain is described as a pressure. Duration: The patient or guardian reports multiple episodes, that wax and wane. Historical: - Allergies: 20:18 No Known Allergies; lp1 - Home Meds: 20:18 Januvia oral oral [Active]; rosuvastatin 40 mg Oral tab 1 tab once daily [Active]; lp1 Levemir FlexTouch 100 unit/mL (3 mL) subcutaneous inpn 50 unit twice a day [Active]; Flexeril Oral [Active]; Tramadol Oral [Active]; Lasix 40 mg oral tab once daily [Active]; Jardiance oral oral [Active]; Iron CR Oral [Active]; metformin 1,000 mg Oral tab 1 tab 2 times per day [Active]; potassium chloride 10 mEq Oral cpER 1 cap once daily [Active]; Descovy 200-25 mg Oral tab 1 tab once daily [Active]; Livalo 4 mg Oral tab 1 tab once daily [Active]; Glimepiride Oral [Active]; promethazine 25 mg Oral tab 1 tab once daily [Active]; - PMHx: 20:18 CHF; Diabetes - IDDM; HIV; lp1 - PSHx: 20:18 None; lp1 - Immunization history:: Adult Immunizations up to date. - Social history:: Smoking status: Patient reports the use of cigarette tobacco products, smokes one pack cigarettes per day. ROS: 20:15 Constitutional: Negative for body aches, chills, fever, poor PO intake. cp 20:15 Eyes: Negative for injury, pain, redness, and discharge. cp 20:15 ENT: Negative for ear pain, sore throat, difficulty swallowing, difficulty handling secretions. 20:15 Cardiovascular: Positive for chest pain, Negative for palpitations. 20:15 Respiratory: Positive for shortness of breath, at rest. Negative for wheezing. 20:15 Abdomen/GI: Negative for abdominal pain, nausea, vomiting, and diarrhea. 20:15 Back: Negative for radiated pain. 20:15 Skin: Negative for rash. 20:15 Neuro: Negative for altered mental status, dizziness, headache, syncope, weakness. 20:15 All other systems are negative. Exam: 20:12 ECG was reviewed by the Attending Physician. cp 20:18 Constitutional: The patient appears in no acute distress, alert, awake, cp non-diaphoretic, non-toxic, well developed, well nourished. 20:18 Head/Face: Normocephalic, atraumatic. cp 20:18 Eyes: Periorbital structures: appear normal, Conjunctiva: normal, no exudate, no cp injection, Sclera: no appreciated abnormality, Lids and lashes: appear normal, bilaterally. 20:18 ENT: External ear(s): are unremarkable, Nose: is normal, Mouth: Lips: moist, Oral mucosa: moist, Posterior pharynx: Airway: no evidence of obstruction, patent. 20:18 Neck: ROM/movement: is normal, is supple, without pain, no range of motions limitations. 20:18 Chest/axilla: Inspection: normal, Palpation: is normal, no crepitus, no tenderness. 20:18 Cardiovascular: Rate: tachycardic, Rhythm: regular, Pulses: Pulses are 2+ in right radial artery and left radial artery. Edema: is not appreciated, JVD: is not appreciated. 20:18 Respiratory: the patient does not display signs of respiratory distress, Respirations: normal, no use of accessory muscles, no retractions, labored breathing, is not present, Breath sounds: are clear throughout, no decreased breath sounds, no stridor, no wheezing. 20:18 Abdomen/GI: Inspection: abdomen appears normal, Palpation: abdomen is soft and non-tender, in all quadrants. 20:18 Back: pain, is absent, ROM is normal. 20:18 Neuro: Orientation: to person, place \T\ time. Mentation: is normal, Cerebellar function: is grossly normal, Motor: moves all fours, strength is normal, Sensation: is normal. Vital Signs: 20:12 BP 131 / 84; Pulse 107; Resp 20; Temp 99(O); Pulse Ox 96% on R/A; Weight 99.79 kg (R); lp1 Height 5 ft. 6 in. (167.64 cm); Pain 6/10; 20:30 BP 135 / 69; Pulse 68; Resp 16; Pulse Ox 99% on R/A; jb4 21:38 BP 134 / 81; Pulse 102; Resp 21; Pulse Ox 94% on R/A; lp1 20:12 Body Mass Index 35.51 (99.79 kg, 167.64 cm) lp1 MDM: 20:04 Patient medically screened. cp 21:25 The patient was not given aspirin in the Emergency Department. Patient reports taking cp aspirin within the past 24 hours. 21:25 Data reviewed: vital signs, nurses notes, lab test result(s), EKG, radiologic studies, cp plain films, and as a result, I will admit patient. Test interpretation: by ED physician or midlevel provider: ECG. Refusal of service: The patient/guardian displays adequate decision making capability and despite a detailed discussion of alternatives, benefits, risks, and consequences refuses: Admission to the hospital for further work-up and treatment. 07/24 20:05 Order name: Basic Metabolic Panel 07/24 20:05 Order name: CBC with Diff; Complete Time: 20:58 12 20:58 Interpretation: Normal except: RBC 5.56; MCV 87.7; MCH 30.4; PLT 139. 07/24 20:05 Order name: LFT's 07/24 20:05 Order name: Magnesium cp 07/24 20:05 Order name: NT PRO-BNP; Complete Time: 21:06 07/24 21:06 Interpretation: NT PRO-BNP 340; Reviewed. 07/24 20:05 Order name: PT-INR; Complete Time: 20:58 07/24 20:05 Order name: Troponin (emerg Dept Use Only); Complete Time: 21:06 07/24 21:06 Interpretation: TROPED < 0.02; Reviewed. 07/24 20:05 Order name: XRAY Chest (1 view); Complete Time: 21:23 07/24 21:24 Interpretation: Report reviewed. 07/24 20:05 Order name: EKG; Complete Time: 20:06 07/24 20:06 Order name: Basic Metabolic Panel; Complete Time: 21:06 [facility] 07/24 21:07 Interpretation: Normal except: GLUC 129; GFR 73. 07/24 20:06 Order name: Liver (Hepatic) Function; Complete Time: 21:06 [facility] 07/24 20:06 Order name: Magnesium; Complete Time: 21:06 [facility] 07/24 20:05 Order name: Cardiac monitoring; Complete Time: 20:11 07/24 20:05 Order name: EKG - Nurse/Tech; Complete Time: 20:11 07/24 20:05 Order name: IV Saline Lock; Complete Time: 20:49 07/24 20:05 Order name: Labs collected and sent; Complete Time: 20:49 07/24 20:05 Order name: O2 Per Protocol; Complete Time: 20: 07/24 20:05 Order name: O2 Sat Monitoring; Complete Time: 20:11 EC:12 Rate is 104 beats/min. Rhythm is regular. AL interval is normal. QRS interval is cp normal. QT interval is normal. T waves are Flattened in lead aVL. Interpreted by me. Reviewed by me. Administered Medications: 20:20 Drug: Nitroglycerin 0.4 mg Route: Sublingual; jb4 20:35 Follow up: Response: No adverse reaction; Marked relief of symptoms jb4 Disposition: 07/25 03:00 Co-signature as Attending Physician, Dakota Cummins MD I agree with the assessment and 4 plan of care. Disposition: 07/24/20 21:28 Patient has left against medical advice. Impression: Chest pain, unspecified. - Patients states they are going to Home. - Condition is Stable. - Discharge Instructions: Nonspecific Chest Pain, Aspirin and Your Heart. Follow up: Private Physician; When: 1 - 2 days; Reason: Recheck today's complaints. - Problem is new. - Symptoms have improved. Signatures: Dispatcher [facility] EDWV Deanne Alejandro RN RN lp1 Ernesto Toure PA PA cp Bryson, James, RN RN jb4 Dakota Cummins MD MD tw4 Corrections: (The following items were deleted from the chart) 07/24 21:23 20:06 CORONAVIRUS+MR.LAB.BRZ ordered. EDMS EDMS 21:40 21:28 07/24/2020 21:28 Patients has left against medical advice. Impression: Chest lp1 pain, unspecified. Patient states they are going to Home. Condition is Stable. Follow up: Private Physician; When: 1 - 2 days; Reason: Recheck today's complaints. Problem is new. Symptoms have improved. cp
--- NOTE | 2020-07-24 21:28 | ER ---
Nurse's Notes [facility] Name: Yan Camargo Age: 45 yrs Sex: Male : 1975 Arrival Date: 07/24/2020 Time: 19:54 Bed 3 Private MD: Diagnosis: Chest pain, unspecified Presentation: 07/24 20:07 Acuity: MARTIR 2 dm5 20:12 Chief complaint: Patient states: Chest pain that began yesterday, reports seeing doctor lp1 yesterday and began on new medication for HIV; reports chest pain on deep breathing. Coronavirus screen: Client denies travel out of the [place] in the last 14 days. At this time, the client does not indicate any symptoms associated with coronavirus-19. Ebola Screen: No symptoms or risks identified at this time. Initial Sepsis Screen: Does the patient meet any 2 criteria? HR > 90 bpm. Does the patient have a suspected source of infection? No. Patient's initial sepsis screen is negative. Risk Assessment: Do you want to hurt yourself or someone else? Patient reports no desire to harm self or others. Onset of symptoms was July 23, 2020. 20:12 Method Of Arrival: Ambulatory lp1 Historical: - Allergies: 20:18 No Known Allergies; lp1 - Home Meds: 20:18 Januvia oral oral [Active]; rosuvastatin 40 mg Oral tab 1 tab once daily [Active]; lp1 Levemir FlexTouch 100 unit/mL (3 mL) subcutaneous inpn 50 unit twice a day [Active]; Flexeril Oral [Active]; Tramadol Oral [Active]; Lasix 40 mg oral tab once daily [Active]; Jardiance oral oral [Active]; Iron CR Oral [Active]; metformin 1,000 mg Oral tab 1 tab 2 times per day [Active]; potassium chloride 10 mEq Oral cpER 1 cap once daily [Active]; Descovy 200-25 mg Oral tab 1 tab once daily [Active]; Livalo 4 mg Oral tab 1 tab once daily [Active]; Glimepiride Oral [Active]; promethazine 25 mg Oral tab 1 tab once daily [Active]; - PMHx: 20:18 CHF; Diabetes - IDDM; HIV; lp1 - PSHx: 20:18 None; lp1 - Immunization history:: Adult Immunizations up to date. - Social history:: Smoking status: Patient reports the use of cigarette tobacco products, smokes one pack cigarettes per day. Screenin:00 Abuse screen: Denies threats or abuse. Nutritional screening: No deficits noted. jb4 Tuberculosis screening: No symptoms or risk factors identified. Fall Risk None identified. Assessment: 20:00 General: Appears in no apparent distress. uncomfortable, Behavior is calm, cooperative, jb4 appropriate for age. Pain: Complains of pain in chest Pain does not radiate. Pain currently is 6 out of 10 on a pain scale. Quality of pain is described as pressure, Pain began Earlier in the day. Neuro: Level of Consciousness is awake, alert, obeys commands, Oriented to person, place, time, situation. Cardiovascular: Patient's skin is warm and dry. Respiratory: Airway is patent Respiratory effort is even, unlabored, Respiratory pattern is regular, symmetrical. GI: No signs and/or symptoms were reported involving the gastrointestinal system. : No signs and/or symptoms were reported regarding the genitourinary system. EENT: No signs and/or symptoms were reported regarding the EENT system. Derm: Skin is intact, Skin is pink, warm \\T\\ dry. Musculoskeletal: Circulation, motion, and sensation intact. Range of motion: intact in all extremities. 21:39 Reassessment: Patient appears in no apparent distress at this time. Patient discussed lp1 with provider about leaving AMA; Patient states "I will follow up with my doctor, I have an appt on Monday" Patient states feeling better. Vital Signs: 20:12 BP 131 / 84; Pulse 107; Resp 20; Temp 99(O); Pulse Ox 96% on R/A; Weight 99.79 kg (R); lp1 Height 5 ft. 6 in. (167.64 cm); Pain 6/10; 20:30 BP 135 / 69; Pulse 68; Resp 16; Pulse Ox 99% on R/A; jb4 21:38 BP 134 / 81; Pulse 102; Resp 21; Pulse Ox 94% on R/A; lp1 20:12 Body Mass Index 35.51 (99.79 kg, 167.64 cm) lp1 ED Course: 19:54 Patient arrived in ED. am2 19:55 Boris Kurtz MD is Private Physician. am2 19:57 Ernesto Toure PA is PHCP. cp 19:57 Dakota Cummins MD is Attending Physician. cp 20:07 Triage completed. dm5 20:11 Sean Carpio, RN is Primary Nurse. jb4 20:13 Arm band placed on. lp1 20:18 Patient has correct armband on for positive identification. Placed in gown. Bed in low lp1 position. residential monitor on. Pulse ox on. NIBP on. 20:24 XRAY Chest (1 view) In Process Unspecified. EDMS 20:30 Initial lab(s) drawn, by me, sent to lab. Inserted saline lock: 18 gauge in right jb4 wrist, using aseptic technique. Blood collected. Oxygen administration via nasal cannula. 21:39 No provider procedures requiring assistance completed. IV discontinued, No lp1 redness/swelling at site. Pressure dressing applied. Administered Medications: 20:20 Drug: Nitroglycerin 0.4 mg Route: Sublingual; jb4 20:35 Follow up: Response: No adverse reaction; Marked relief of symptoms jb4 Outcome: 21:39 AMA AMA form signed lp1 21:39 Condition: stable 21:39 Discharge instructions given to patient, Instructed on follow up and referral plans. 21:40 Patient left the ED. lp1 Addendum: 07/27/2020 14:03 Addendum: COVID-19 Result: Negative result given to RN to notify pt. Notified pt of i w negative COVID 19 swab results. Pt advised that even with a negative test result they should remain in isolation until symptom free for 3 days without medication. Pt also advised to return to the ED for worsening symptoms. Signatures: Dispatcher [employer] [facility] Bela Trujillo, RN RN dm5 Sailaja Berry RN RN iw Pena, Laura, RN RN lp1 rEnesto Toure PA PA cp Bryson, James, VAHID REDDING jb4 Suri Welch am2
[2020-07-29 08:51] VITALS: TEMP 99
[2020-07-29 08:53] VITALS: BP 134/81; O2SAT 94
== END 2020-07-24 21:40 | disposition left against medical advice (07) ==
LOC: ER 19:52
DX: R07.89 Other chest pain (principal); Z20.828 Contact with and (suspected) exposure to other viral communicable diseases; E11.9 Type 2 diabetes mellitus without complications; I50.9 Heart failure, unspecified; Z21 Asymptomatic human immunodeficiency virus [HIV] infection status; F17.210 Nicotine dependence, cigarettes, uncomplicated
CPT/HCPCS: 93005; 85025; 80048; 36415; 83735; 85610; 80076; 84484; 83880; 71045; 99285; U0003

== ENCOUNTER 2021-11-16 21:07 | Emergency (ER) | payer OTHER ==
--- OUTSIDE RECORDS SUMMARY | 2021-11-16 21:11 | XMS REPORT | Continuity of Care Document ---
:1975 Author Organization [facility] t Address [address] [place] [address] Care Team Providers Name Role Phone NOAH Primary Care Physician Unavailable Thu CHERRY Attending Clinician Unavailable Jo Ann FLORENCE K.HNolan Attending Clinician Alysia FLORENCE Attending Clinician ALYSIA Attending Clinician Unavailable BLANE Attending Clinician Unavailable ИВАН PEREYRA Attending Clinician Unavailable HAFSA GENE Attending Clinician Unavailable Chin SIERRA Attending Clinician Unavailable LICK Attending Clinician Unavailable Doctor Unassigned, Name Attending Clinician Unavailable Only, Test Attending Clinician Unavailable RADHA Attending Clinician Unavailable Yamile FLORENCE Attending Clinician CHIQUITA Attending Clinician Unavailable ALYSIA Admitting Clinician Unavailable HAFSA GENE Admitting Clinician Unavailable LICK Admitting Clinician Unavailable Payers Payer Name Policy Type Policy Number Effective Date Expiration Date S [facility] [place] PART A \T\ [id number] 2017 B 00:00:00 [place] OF [place] [id number] 2019 00:00:00 [facility] [id number] 2019 00:00:00 Problems Condition Condition Condition Status Onset Resolution Last Treating Co mments Source Name Details Category Date Date Treatment Clinician Date S/P CABG x S/P CABG x Disease Active U nivers 2 2 4-19 ity of 00:00: [place] [address] Medical Branch Obesity Obesity Disease Active Univers (BMI (BMI 4-02 ity of 30-39.9) 30-39.9) 00:00: [place] [address] Medical Branch Coronary Coronary Disease Active Overview: Un chris artery artery 4-02 Formattin ity of disease disease 00:00: g of this [place] involving involving 00 note Medi compa [place] might be Branch coronary coronary different artery of artery of from the [place] original. 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 [place] virus virus Medical (HIV) (HIV) Branch disease disease CHF CHF Disease Active Univers (congestiv (congestiv it y of e heart e heart [place] failure) failure) Medica l Branch Hyperlipid Hyperlipid Disease Active U nivers emia emia ity of [facility] Allergies, Adverse Reactions, Alerts Allergy Allergy Status Severity Reaction(s) Onset Inactive Treating Comm ents Source Name Type Date Date Clinician NO KNOWN Drug Active Univers ALLERGIE Class ity of S [facility] Social History Social Habit Start Date Stop Date Quantity Comments Source History of tobacco 1983-08-14 Cigarette Smoker University of use 00:00:00 [facility] Exposure to Not sure [place] of SARS-CoV-2 (event) [facility] Alcohol intake 2021-06-29 2021-06-29 .29 /d University of 00:00:00 00:00:00 [facility] Cigarettes smoked 2019-05-10 2019-05-10 Univers ity of current (pack per 00:00:00 00:00:00 [facility] ) - Reported Branch Cigarette 2019-05-10 2019-05-10 University of pack-years 00:00:00 00:00:00 [facility] Tobacco use and 2019-05-10 2019-05-10 Never used Universit y of exposure 00:00:00 00:00:00 [facility] History [facility] 2019-05-10 2019-05-10 2 University o f Alcohol Frequency 00:00:00 00:00:00 [facility] Branch History [facility] 2019-05-10 2019-05-10 1 University o f Alcohol Std Drinks 00:00:00 00:00:00 [facility] History [facility] 2019-05-10 2019-05-10 2 University o f Alcohol Binge 00:00:00 00:00:[address] [facility] Branch Alcohol Comment 2019-05-10 2019-05-10 Occasionally Univers ity of 00:00:00 00:00:00 [facility] Sex [birth year] Universit y of 00:00:00 00:00:00 [facility] Smoking Status Start Date Stop Date Source Current every day smoker 2019-05-10 00:00:00 Uni versity of [facility] Medications Ordered Filled Start Stop Current Ordering Indication Dosage Frequency Signature Comments Components Source Medication Medication Date Date Medication? Clinician (SIG) Name Name spironolact Yes [id number] 25mg Take 1 Univers one 25 mg 3-09 tablet by ity o f tablet 00:00: mouth [place] 00 daily. [facility] Branch metoprolol Yes [id number] 50mg Take 1 Univers succinate 3-07 tablet by ity o f XL 50 mg 24 00:00: mouth 2 [place] as hr tablet 00 (two) [facility] daily. Please note tablet dose change. Appointmen t needed for further refills. Please contact office. metoprolol Yes [id number] 50mg Take 1 Univers succinate 3-07 tablet by ity o f XL 50 mg 24 00:00: mouth 2 [place] hr tablet 00 (two) [facility] daily. Please note tablet dose change. Appointmen t needed for further refills. Please contact office. metoprolol 2020-08 No [id number] 50mg Take 2 Univers succinate 0-28 01-27 tablets by ity of XL 25 mg 24 00:00: 05:59 [place] :[place] (two) [facility] daily for 90 days. spironolact 2020-08- No [id number] 25mg Take 1 Univers one 25 mg 0-28 01-27 tablet by ity of tablet 00:00: 05:59 mouth [place] 00 :00 daily for Medical 90 days. Branch metoprolol 2020-08- No [id number] 50mg Take 2 Univers succinate 0-28 01-27 tablets by ity of XL 25 mg 24 00:00: 05:59 [place] tablet [place] :00 (two) [facility] daily for 90 days. spironolact 2020-08- No [id number] 25mg Take 1 Univers one 25 mg 0-28 -27 tablet by ity of tablet 00:00: 05:59 mouth [place] 00 :00 daily for Medical 90 days. [place] metoprolol 2020-08- No [id number] 50mg Take 2 Univers succinate 0-28 -27 tablets by ity of XL 25 mg 24 00:00: 05:59 [place] tablet [place] :00 (two) Medical times [place] daily for 90 days. spironolact 2020-08- No [id number] 25mg Take 1 Univers one 25 mg 0-28 -27 tablet by ity of tablet 00:00: 05:59 mouth [place] 00 :00 daily for Medical 90 days. Branch metoprolol 2020-08- No [id number] 50mg Take 2 Univers succinate 0-28 -27 tablets by ity of XL 25 mg 24 00:00: 05:59 [place] tablet 00 :00 (two) Medical times [place] daily for 90 days. spironolact 2020-08- No [id number] 25mg Take 1 Univers one 25 mg 0-10 09-27 tablet by ity of tablet 00:00: 05:59 mouth [place] 00 :00 daily for Medical 90 days. [place] metoprolol 2020-08- No [id number] 50mg Take 2 Univers succinate 0-28 -27 tablets by ity of XL 25 mg 24 00:00: 05:59 [place] tablet 00 :00 (two) Medical times [place] daily for 90 days. spironolact 2020-08- No [id number] 25mg Take 1 Univers one 25 mg 0-28 -27 tablet by ity of tablet 00:00: 05:59 mouth [place] 00 :00 daily for Medical 90 days. Branch TIVICAY 50 Yes Univers mg tablet 7-12 ity of 00:00: [place] 00 [facility] DESCOVY 0 Yes Univers tablet 7-12 ity of 00:00: [place] 00 Medical [place] TIVICAY 50 2020-0 Yes Univers mg tablet 7-12 ity of 00:00: [place] 00 [facility] DESCOVY 2020-0 Yes Univers tablet 7-12 ity of 00:00: [place] 00 Medical Branch TIVICAY 50 2021-0 Yes Univers mg tablet 7-12 ity of 00:00: 00 Medical Branch DESCOVY 2020-0 Yes Univers tablet 7-12 ity of 00:00: [place] 00 Medical Branch TIVICAY 50 2020-0 Yes Univers mg tablet 7-12 ity of 00:00: [place] Medical [facility] DESCOVY 2020-0 Yes Univers tablet 7-12 ity of 00:00: [place] Medical [facility] TIVICAY 50 2020-0 Yes Univers mg tablet 7-12 ity of 00:00: Medical Branch DESCOVY 2020-0 Yes Univers tablet 7-12 ity of 00:00: [place] [facility] TIVICAY 50 2020-0 Yes Univers mg tablet 7-12 ity of 00:00: [place] Medical [facility] DESCOVY 2020-0 Yes Univers tablet 7-12 ity of 00:00: [place] [facility] TIVICAY 50 2020-0 Yes Univers mg tablet 7-12 ity of 00:00: [place] [facility] DESCOVY 2020-0 Yes Univers tablet 7-12 ity of 00:00: [place] Medical [facility] LEVEMIR 2020-0 Yes Univers FLEXTOUCH 7-08 ity of U-100 00:00: [place] INSULN 100 00 Medical unit/mL (3 Branch mL) injection LEVEMIR 2020-0 Yes Univers FLEXTOUCH 7-08 ity of U-100 00:00: [place] INSULN 100 00 Medical unit/mL (3 Branch mL) injection LEVEMIR 2020-0 Yes Univers FLEXTOUCH 7-08 ity of U-100 00:00: [place] INSULN 100 00 Medical unit/mL (3 Branch mL) injection LEVEMIR 2020-0 Yes Univers FLEXTOUCH 7-08 ity of U-100 00:00: [place] INSULN 100 00 Medical unit/mL (3 Branch mL) injection LEVEMIR 202-0 Yes Univers FLEXTOUCH 7-08 ity of U-100 00:00: [place] INSULN 100 00 Medical unit/mL (3 Branch mL) injection LEVEMIR 202-0 Yes Univers FLEXTOUCH 7-08 ity of U-100 00:00: [place] INSULN 100 00 Medical unit/mL (3 Branch mL) injection LEVEMIR 2020-0 Yes Univers FLEXTOUCH 7-08 ity of U-100 00:00: [place] INSULN 100 00 Medical unit/mL (3 Branch mL) injection gabapentin 0 Yes Univers 600 mg 6-24 ity of tablet 00:00: [place] [facility] JARDIANCE 2020-0 Yes Univers 25 mg Tab 6-24 ity of 00:00: [place] [facility] glimepiride 2020-0 Yes Univer s 1 mg tablet 6-24 ity of 00:00: [place] [facility] metFORMIN 2020-0 Yes Univers 1,000 mg 6-24 ity of tablet 00:00: [place] [facility] rosuvastati 2020-0 Yes 40mg Take 40 mg Univers n 40 mg 6-24 by mouth ity of tablet 00:00: at [place] [address] bedtime. Medical Branch JANUVIA 100 2020-0 Yes Univer s mg tablet 6-24 ity of 00:00: [place] [address] Medical Branch furosemide 2020-0 Yes 40mg Take 40 mg U nivers 40 mg 6-24 by mouth ity of tablet 00:00: daily. [place] [facility] gabapentin 2020-0 Yes Univers 600 mg 6-24 ity of tablet 00:00: [place] [address] Medical Branch JARDIANCE 2020-0 Yes Univers 25 mg Tab 6-24 ity of 00:00: [place] [facility] glimepiride 2020-0 Yes Univer s 1 mg tablet 6-24 ity of 00:00: [place] [address] Medical Branch metFORMIN 2020-0 Yes Univers 1,000 mg 6-24 ity of tablet 00:00: [place] [facility] rosuvastati 2020-0 Yes 40mg Take 40 mg Univers n 40 mg 6-24 by mouth ity of tablet 00:00: at [place] [address] bedtime. Medical Branch JANIA 100 2020-0 Yes Univer s mg tablet 6-24 ity of 00:00: [place] [address] Medical Branch furosemide 2020-0 Yes 40mg Take 40 mg U nivers 40 mg 6-24 by mouth ity of tablet 00:00: daily. [place] [address] Medical Branch gabapentin 2020-0 Yes Univers 600 mg 6-24 ity of tablet 00:00: [place] [address] Medical Branch JARDIANCE 2020-0 Yes Univers 25 mg Tab 6-24 ity of 00:00: [place] [facility] glimepiride 2020-0 Yes Univer s 1 mg tablet 6-24 ity of 00:00: [place] [facility] metFORMIN 2020-0 Yes Univers 1,000 mg 6-24 ity of tablet 00:00: [place] Medical [facility] rosuvastati 2020-0 Yes 40mg Take 40 mg Univers n 40 mg 6-24 by mouth ity of tablet 00:00: at [place] [address] bedtime. Medical Branch JANUVIA 100 2020-0 Yes Univer s mg tablet 6-24 ity of 00:00: [place] [facility] furosemide 2020-0 Yes 40mg Take 40 mg U nivers 40 mg 6-24 by mouth ity of tablet 00:00: daily. [place] [facility] gabapentin 2020-0 Yes Univers 600 mg 6-24 ity of tablet 00:00: [place] [facility] JARDIANCE 2020-0 Yes Univers 25 mg Tab 6-24 ity of 00:00: [place] [facility] glimepiride 2020-0 Yes Univer s 1 mg tablet 6-24 ity of 00:00: [place] [facility] metFORMIN 2020-0 Yes Univers 1,000 mg 6-24 ity of tablet 00:00: [place] [facility] rosuvastati 2020-0 Yes 40mg Take 40 mg Univers n 40 mg 6-24 by mouth ity of tablet 00:00: at [place] [address] bedtime. Medical Branch JANIA 100 2020-0 Yes Univer s mg tablet 6-24 ity of 00:00: [place] [facility] furosemide 2020-0 Yes 40mg Take 40 mg U nivers 40 mg 6-24 by mouth ity of tablet 00:00: daily. [place] [facility] gabapentin 2020-0 Yes Univers 600 mg 6-24 ity of tablet 00:00: [place] [address] Medical Branch JARDIANCE 2020-0 Yes Univers 25 mg Tab 6-24 ity of 00:00: [place] [facility] glimepiride 2020-0 Yes Univer s 1 mg tablet 6-24 ity of 00:00: [place] [facility] metFORMIN 2020-0 Yes Univers 1,000 mg 6-24 ity of tablet 00:00: [place] [address] Medical Branch rosuvastati 2020-0 Yes 40mg Take 40 mg Univers n 40 mg 6-24 by mouth ity of tablet 00:00: at [place] [address] bedtime. Medical Branch JANUVIA 100 2020-0 Yes Univer s mg tablet 6-24 ity of 00:00: [place] [facility] furosemide 2020-0 Yes 40mg Take 40 mg U nivers 40 mg 6-24 by mouth ity of tablet 00:00: daily. [place] [facility] gabapentin 2020-0 Yes Univers 600 mg 6-24 ity of tablet 00:00: [place] [facility] JARDIANCE 2020-0 Yes Univers 25 mg Tab 6-24 ity of 00:00: [place] [facility] glimepiride 2020-0 Yes Univer s 1 mg tablet 6-24 ity of 00:00: [place] [facility] metFORMIN 2020-0 Yes Univers 1,000 mg 6-24 ity of tablet 00:00: [place] [facility] rosuvastati 2020-0 Yes 40mg Take 40 mg Univers n 40 mg 6-24 by mouth ity of tablet 00:00: at [place] [address] bedtime. Medical Branch JANIA 100 2020-0 Yes Univer s mg tablet 6-24 ity of 00:00: [place] [facility] furosemide 2020-0 Yes 40mg Take 40 mg U nivers 40 mg 6-24 by mouth ity of tablet 00:00: daily. [place] [address] Medical Branch gabapentin 2020-0 Yes Univers 600 mg 6-24 ity of tablet 00:00: [place] [facility] JARDIANCE 2020-0 Yes Univers 25 mg Tab 6-24 ity of 00:00: [place] [facility] glimepiride 2020-0 Yes Univer s 1 mg tablet 6-24 ity of 00:00: [place] [facility] metFORMIN 2020-0 Yes Univers 1,000 mg 6-24 ity of tablet 00:00: [place] [address] Medical Branch rosuvastati 2020-0 Yes 40mg Take 40 mg Univers n 40 mg 6-24 by mouth ity of tablet 00:00: at [place] [address] bedtime. Medical Branch JANIA 100 0 Yes Univer s mg tablet 6-24 ity of 00:00: [place] [address] Medical Branch furosemide 2020-0 Yes 40mg Take 40 mg U nivers 40 mg 6-24 by mouth ity of tablet 00:00: daily. [place] [address] Medical Branch Immunizations Ordered Filled Immunization Date Status Comments [facility] e Immunization Name Name Influenza Virus 2020-07-24 Completed Universit y of Vaccine Recomb Quad 00:00:00 [place] [facility] IM, Preserv and ABX Branc h Free 18-64 YRS Influenza Virus 2020-07-24 Completed Universit y of Vaccine Recomb Quad 00:00:00 [place] [facility] IM, Preserv and ABX Branc h Free 18-64 YRS Influenza Virus 2020-07-24 Completed Universit y of Vaccine Recomb Quad 00:00:00 [place] [facility] IM, Preserv and ABX Branc h Free 18-64 YRS Influenza Virus 2020-07-24 Completed Universit y of Vaccine Recomb Quad 00:00:00 [place] [facility] IM, Preserv and ABX Branc h Free 18-64 YRS Influenza Virus 2020-07-24 Completed Universit y of Vaccine Recomb Quad 00:00:00 [place] [facility] IM, Preserv and ABX Branc h Free 18-64 YRS Influenza Virus 2020-07-24 Completed Universit y of Vaccine Recomb Quad 00:00:00 [place] [facility] IM, Preserv and ABX Branc h Free 18-64 YRS Influenza Virus 2020-07-24 Completed Universit y of Vaccine Recomb Quad 00:00:00 [place] [facility] IM, Preserv and ABX Branc h Free 18-64 YRS HEPLISAV HEP B, 2019-09-13 Completed Universit y of ADULT 2 DOSE, IM 00:00:00 [facility] dical Branch HEPLISAV HEP B, 2019-09-13 Completed Universit y of ADULT 2 DOSE, IM 00:00:00 [facility] dical Branch HEPLISAV HEP B, 2019-09-13 Completed Universit y of ADULT 2 DOSE, IM 00:00:00 [facility] dical Branch HEPLISAV HEP B, 2019-09-13 Completed Universit y of ADULT 2 DOSE, IM 00:00:00 [facility] dical Branch HEPLISAV HEP B, 2019-09-13 Completed Universit y of ADULT 2 DOSE, IM 00:00:00 [facility] dical Branch HEPLISAV HEP B, 2019-09-13 Completed Universit y of ADULT 2 DOSE, IM 00:00:00 [facility] dical Branch HEPLISAV HEP B, 2019-09-13 Completed Universit y of ADULT 2 DOSE, IM 00:00:00 [facility] dical Branch HEPLISAV HEP B, 2019-08-09 Completed Universit y of ADULT 2 DOSE, IM 00:00:00 [facility] [place] Branch Hepatitis A Adult 2019-08-09 Completed Univers ity of 00:00:00 [facility] HEPLISAV HEP B, 2019-08-09 Completed Universit y of ADULT 2 DOSE, IM 00:00:00 [facility] [place] Branch Hepatitis A Adult 2019-08-09 Completed Univers ity of 00:00:00 [facility] HEPLISAV HEP B, 2019-08-09 Completed Universit y of ADULT 2 DOSE, IM 00:00:00 [facility] [place] Branch Hepatitis A Adult 2019-08-09 Completed Univers ity of 00:00:00 [facility] HEPLISAV HEP B, 2019-08-09 Completed Universit y of ADULT 2 DOSE, IM 00:00:00 [facility] [place] Branch Hepatitis A Adult 2019-08-09 Completed Univers ity of 00:00:00 [facility] HEPLISAV HEP B, 2019-08-09 Completed Universit y of ADULT 2 DOSE, IM 00:00:00 [facility] [place] Branch Hepatitis A Adult 2019-08-09 Completed Univers ity of 00:00:00 [facility] HEPLISAV HEP B, 2019-08-09 Completed Universit y of ADULT 2 DOSE, IM 00:00:00 [facility] [place] [facility] Hepatitis A Adult 2019-08-09 Completed Univers ity of 00:00:00 [facility] HEPLISAV HEP B, 2019-08-09 Completed Universit y of ADULT 2 DOSE, IM 00:00:00 [facility] [place] [facility] Hepatitis A Adult 2019-08-09 Completed Univers ity of 00:00:00 [facility] Influenza Virus 2019-05-10 Completed Universit y of Vaccine Quad .5 mL 00:00:00 [facility] IM 6+ MO Branch Influenza Virus 2019-05-10 Completed Universit y of Vaccine Quad .5 mL 00:00:00 [facility] IM 6+ MO Branch Influenza Virus 2019-05-10 Completed Universit y of Vaccine Quad .5 mL 00:00:00 [facility] IM 6+ MO Branch Influenza Virus 2019-05-10 Completed Universit y of Vaccine Quad .5 mL 00:00:00 [facility] IM 6+ [place] Branch Influenza Virus 2019-05-10 Completed Universit y of Vaccine Quad .5 mL 00:00:00 [facility] IM 6+ MO Branch Influenza Virus 2019-05-10 Completed Universit y of Vaccine Quad .5 mL 00:00:00 [place] [facility] IM 6+ MO Branch Influenza Virus 2019-05-10 Completed Universit y of Vaccine Quad .5 mL 00:00:00 [facility] IM 6+ MO Branch Vital Signs Vital Name Observation Time Observation Value Comments Source Systolic blood 2021-06-29 14:28:00 118 mm[Hg] Univer sity of pressure [facility] Diastolic blood 2021-06-29 14:28:00 79 mm[Hg] Unive rsity of pressure [facility] Heart rate 2021-06-29 14:28:00 68 /[facility] Respiratory rate 2021-06-29 14:28:00 19 /min Univ ersity [facility] Body height 2021-06-29 14:28:00 167.6 cm [facility] Body weight 2021-06-29 14:28:00 92.171 kg [facility] BMI 2021-06-29 14:28:00 32.80 kg/m2 [facility] Oxygen saturation in 2021-06-29 14:28:00 94 /min [facility] Arterial blood by [facility] Pulse oximetry Branch Procedures This patient has no known procedures. Encounters Start End Encounter Admission Attending Care Care Encounter Source Date/Time Date/Time Type Type Clinicians Facility Department ID 2021-12-10 2021-12-10 Outpatient Jing CHERRY [facility] [id number] Univers 10:00:00 10:00:00 [facility] [id number] 2021-12-10 2021-12-10 Outpatient R JO ANN [facility] [id number] Univers 10:00:00 10:00:[facility] 2021-10-19 2021-10-19 Telephone Jo Ann SCRADHA [id number] Univers 00:00:00 00:00:00 Sendil Thu [id number] [id number] Kofi garcia PROFESSIO [id number] Ok dical NAL 059 [facility] 2021-10-16 2021-10-16 Refill Jo Ann SCRADHA [id number] Univers 00:00:00 00:00:00 Sendil MartinNolanRyanNolan LINN [id number] ity of [id number] [id number] [place] [id number] [facility] 2021-10-12 2021-10-12 [facility] [id number] Univers 10:00:00 10:00:00 SENDIL [id number] ity [facility] 2021-10-12 2021-10-12 [facility]patient [facility] [id number] Univers 10:00:00 10:00:00 SENDIL ity [facility] 2021-08-17 2021-08-17 Telephone EVONNE Carter [id number] Univers 00:00:00 00:00:00 Jj ROEL [id number] it y of HOSPITAL [id number] Aramis as [id number] [address] 2021-07-29 2021-07-29 Outpatient R [facility] [id number] Univers 13:00:00 13:00:00 [id number] ity of [facility] 2021-07-29 2021-07-29 [facility] [id number] Univers 13:00:00 13:00:00 JJ ity [facility] 2021-07-28 2021-07-28 Outpatient R [facility] [id number] Univers 07:00:00 07:00:00 [id number] ity [facility] 2021-07-28 2021-07-28 [facility] [id number] Univers 00:00:00 00:00:00 Jj HEALTH [id number] it y of [id number] [id number] [place] [address] Branch ([facility]) 2021-07-28 2021-07-28 [facility] [id number] Univers 00:00:00 00:00:00 Jj HEALTH [id number] it y of [id number] GARCIA [id number] [facility] 051 Branch ([facility]) 2021-07-06 2021-07-06 Outpatient R ALYSIA [facility] [id number] Univers 08:00:00 23:59:00 JJ ity of [facility] 2021-07-06 2021-07-06 Hospital [facility] [id number] Univers 08:00:00 23:59:00 Encounter [facility] [id number] [facility] [id number] PROF[place] [id number] Ok dical NAL 846 [facility] 2021-06-29 2021-06-29 [facility] [id number] Univers 08:20:00 09:09:21 JJ ity [facility] 2021-06-29 2021-06-29 Office [facility] [id number] Univers 08:13:57 09:09:21 Visit Jj PEARCY [id number] i ty of [facility] [id number] PROF[place] [id number] Ok dical NAL 9 [facility] 2021-06-10 2021-06-10 Outpatient Jing CHERRY [facility] [id number] Univers 10:00:00 10:44:46 SENDIL ity [facility] 2021-06-08 2021-06-08 Outpatient Jing ARGUELLES [facility] [id number] Univers 08:00:00 23:59:00 CHILVANA harleeny o f [facility] 2021-03-17 2021-03-17 Outpatient Jing CHERRY [facility] [id number] Univers 09:00:00 23:59:00 SENDIL ity [facility] 2021-03-16 2021-03-16 Outpatient RONALD ANNE [facility] [id number] Univers 08:40:00 10:18:17 RONALD PEREYRA itximena [facility] 2021-03-04 2021-03-04 Outpatient Jing CHERRY [facility] [id number] Univers 08:00:00 08:00:00 SENDIL [facility] 2021-02-26 2021-02-26 Outpatient R MARIELA [facility] [id number] Univers 09:12:48 23:59:00 FAVIAN [facility] 2020-12-24 2020-12-24 Outpatient R MARCOS ECKERT [facility] [id number] Univers 15:30:00 15:35:10 [facility] 2020-11-30 2020-12-07 Inpatient R MARCOS ECKERT [facility] [id number] Univers 06:44:00 19:20:00 [facility] 2020-11-30 2020-11-30 Surgery Evonne [id number] 07:15:00 15:03:00 Roel [id number] 2020-11-30 2020-11-30 Orders Doctor BRISEIDA [id number] 00:00:00 00:00:00 Only Unassigned, [place] 350.1.13.10 [place] [address]686 [id number] 2020-11-26 2020-11-26 Laboratory Only, [facility] [id number] 09:39:58 09:54:58 Only Test [place] [id number] [place] [id number] [place] [id number] 2020-11-20 2020-11-20 Outpatient Jing GARCIA [facility] [id number] Univers 10:00:00 10:00:00 ROBBY [facility] 2020-11-13 2020-11-13 Outpatient MARCOS BLANTON [facility] [id number] Univers 12:06:38 23:59:00 [facility] 2020-11-13 2020-11-13 Outpatient MARCOS BLANTON [facility] [id number] Univers 00:00:00 00:00:00 [id number] [facility] 2020-11-13 2020-11-13 Telephone Evonne Ovalle [id number] 00:00:00 00:00:00 Freeman Boles [id number] [facility] [id number] 2020-10-28 2020-10-28 Office Jo Ann RUST [id number] 08:48:15 09:36:28 Visit Sammi Linn 350.1.13.10 [place] 4.2.7.2.686 Jr [id number] [facility] 2020-10-15 2020-10-15 Outpatient Jing PORRAS [facility] [id number] Univers 14:45:00 16:52:22 [facility] 2020-09-24 2020-09-24 Outpatient Jing PORRAS [facility] [id number] Univers 08:30:00 09:40:43 [facility] 2020-09-10 2020-09-10 [facility] [id number] Univers 09:00:00 09:00:00 [facility] Results This patient has no known results.
--- NOTE | 2021-11-16 22:06 | RAD REPORT ---
EXAM DESCRIPTION: RAD - Chest Single View - 11/16/2021 9:56 pm CLINICAL HISTORY: Dizziness Chest pain. COMPARISON: Chest Single View dated 07/24/2020; Chest Single View dated 09/21/2019 FINDINGS: Portable technique limits examination quality. Mild interstitial pulmonary edema. The heart is mildly enlarged in size. No displaced fractures.Jon otomy wires present. IMPRESSION: Mild CHF.
[2021-11-16] MEDS ORDERED: TETANUS & DIPHTHERIA TOX,ADULT 0.5 ML VIAL ONE (22:33)
[2021-11-16 23:51] LABS: Absolute Lymphocytes (CBC) 1.6 K/uL (0.7-4.9); Hematocrit 51.2 % (39.6-49.0); Lymphocytes % 26.5 % (15.3-44.8); Protime INR 1.05; RBC Red Blood Cell Count 5.48 M/uL (4.33-5.43)
[2021-11-17 00:06] LABS: ALT/SGPT 24 U/L (12-78); AST/SGOT 11 U/L (15-37); Albumin 3.8 g/dL (3.4-5.0); Alkaline Phosphatase 48 U/L (45-117); BUN Blood Urea Nitrogen 9 mg/dL (7-18); Bicarbonate 24 mmol/L (21-32); Bilirubin Total 0.3 mg/dL (0.2-1.0); Glucose Level 143 mg/dL (74-106); Magnesium 2.1 mg/dL (1.8-2.4); NT PRO-BNP 241 pg/mL (<125); Potassium 3.6 mmol/L (3.5-5.1); Protein, Total 7.1 g/dL (6.4-8.2); Sodium Level 137 mmol/L (136-145); Troponin High Sensitivity 15.4 pg/mL (<58.9)
[2021-11-17 00:09] LABS: Bilirubin Direct < 0.1 mg/dL (0-0.2)
--- NOTE | 2021-11-17 00:44 | EDPHYS ---
Physician Documentation [facility] Name: Yan Camargo Age: 46 yrs Sex: Male : 1975 Arrival Date: 11/16/2021 Time: 21:14 Bed 15 Private MD: ED Physician Ernesto Aleman HPI: 11/16 21:56 This 46 yrs old Male presents to ER via Ambulatory with complaints of Headache - pm1 Possible insect bite on head. 21:56 The patient complains of pain to the top of head. The patient describes the headache as pm1 Pain. Onset: The symptoms/episode began/occurred this morning. Associated signs and symptoms: Pertinent positives: dizziness, Pertinent negatives: fever, nausea, vomiting. Severity of symptoms: in the emergency department the pain has improved. The symptoms are alleviated by nothing. The patient has not experienced similar symptoms in the past. The patient has not recently seen a physician. Historical: - Allergies: 22:16 No Known Allergies; ll3 - Immunization history:: Client reports having NOT received the Covid vaccine. - Social history:: Smoking status: Patient reports the use of cigarette tobacco products, smokes one pack cigarettes per day. ROS: 21:56 Constitutional: Negative for fever, chills, and weight loss, Cardiovascular: Negative pm1 for chest pain, palpitations, and edema, Respiratory: Negative for shortness of breath, cough, wheezing, and pleuritic chest pain, Abdomen/GI: Negative for abdominal pain, nausea, vomiting, diarrhea, and constipation, MS/Extremity: Negative for injury and deformity, Skin: Negative for injury, rash, and discoloration. 21:56 Skin: Positive for of the top of head, bite. 21:56 Neuro: Positive for dizziness, Negative for headache, numbness, tingling. 21:56 All other systems are negative. Exam: 21:56 Constitutional: This is a well developed, well nourished patient who is awake, alert, pm1 and in no acute distress. Head/Face: Normocephalic, atraumatic. 21:56 Abdomen/GI: Soft, non-tender, with normal bowel sounds. No distension or tympany. No guarding or rebound. No evidence of tenderness throughout. Back: No spinal tenderness. No costovertebral tenderness. Full range of motion. MS/ Extremity: Pulses equal, no cyanosis. Neurovascular intact. Full, normal range of motion. 21:56 Cardiovascular: Rate: normal, Rhythm: regular, Pulses: no pulse deficits are appreciated. 21:56 Respiratory: Exam negative for acute changes, respiratory distress, shortness of breath, Breath sounds: are clear throughout. 21:56 Skin: Appearance: normal except for affected area, injury, abrasion(s), very small abrasion noted, of the top of head, slight swelling present. No drainage or purulence. 21:56 Neuro: Exam negative for acute changes, Orientation: is normal, Mentation: is normal, Motor: is normal, moves all fours. Vital Signs: 22:14 Temp 98.6(O); Weight 95.25 kg; Height 5 ft. 6 in. (167.64 cm); ll3 22:52 BP 113 / 79; Pulse 85; Resp 14 S; Pulse Ox 98% on R/A; as6 11/17 00:30 BP 123 / 57; Pulse 83; Resp 16 S; Pulse Ox 97% on R/A; as6 01:26 BP 122 / 79; Pulse 81; Resp 19 S; Pulse Ox 95% on R/A; as6 11/16 22:14 Body Mass Index 33.89 (95.25 kg, 167.64 cm) ll3 MDM: 11/16 21:37 Patient medically screened. pm1 11/17 00:42 Data reviewed: vital signs. Data interpreted: Pulse oximetry: on room air is 98 %. pm1 Interpretation: normal. Counseling: I had a detailed discussion with the patient and/or guardian regarding: the historical points, exam findings, and any diagnostic results supporting the discharge/admit diagnosis, lab results, radiology results, the need for outpatient follow up, to return to the emergency department if symptoms worsen or persist or if there are any questions or concerns that arise at home. 11/16 21:43 Order name: Basic Metabolic Panel; Complete Time: 00:42 pm1 11/16 21:43 Order name: CBC with Diff; Complete Time: 00:01 pm1 11/16 21:43 Order name: LFT's; Complete Time: 00:42 pm1 11/16 21:43 Order name: Magnesium; Complete Time: 00:42 pm1 11/16 21:43 Order name: NT PRO-BNP; Complete Time: 00:42 pm1 11/16 21:43 Order name: PT-INR; Complete Time: 00:01 pm1 11/16 21:43 Order name: Troponin HS; Complete Time: 00:42 pm1 11/16 21:43 Order name: XRAY Chest (1 view); Complete Time: 22:11 pm1 11/16 21:43 Order name: EKG; Complete Time: 21:44 pm1 11/16 21:43 Order name: Cardiac monitoring; Complete Time: 22:49 pm1 11/16 21:43 Order name: EKG - Nurse/Tech; Complete Time: 22:49 pm1 11/16 21:43 Order name: IV Saline Lock; Complete Time: 22:49 pm1 11/16 21:43 Order name: CT Head Brain wo Cont pm1 11/16 21:43 Order name: Labs collected and sent; Complete Time: 22:49 pm1 11/16 21:43 Order name: O2 Per Protocol; Complete Time: 22:29 pm1 11/16 21:43 Order name: O2 Sat Monitoring; Complete Time: 22:29 pm1 11/16 23:02 Order name: Labs - recollect needed: purple, blue, green needed; Complete Time: 23:39 mw2 Administered Medications: 11/16 22:48 Drug: Tetanus-Diphtheria Toxoid Adult 0.5 ml {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 Exp: as6 11/05/2022. Lot #: [id number]. } Route: IM; Site: left deltoid; 23:26 Follow up: Response: No adverse reaction as6 Disposition Summary: 11/17/21 00:44 Discharge Ordered Location: Home pm1 Problem: new pm1 Symptoms: have improved pm1 Condition: Stable pm1 Diagnosis - Headache pm1 - Insect bite (nonvenomous) of other part of head pm1 Followup: pm1 - With: Emergency Department - When: As needed - Reason: Worsening of condition Followup: pm1 - With: Private Physician - When: 2 - 3 days - Reason: Recheck today's complaints, Continuance of care, Re-evaluation by your physician Discharge Instructions: - Discharge Summary Sheet pm1 - Insect Bite, Adult pm1 - General Headache Without Cause pm1 Forms: - Medication Reconciliation Form pm1 - Thank You Letter pm1 - Antibiotic Education pm1 - Prescription Opioid Use pm1 Prescriptions: - Bactrim DS 800-160 mg Oral Tablet - take 1 tablet by ORAL route every 12 hours for 10 days; 20 tablet; Refills: 0, pm1 Product Selection Permitted - mupirocin 2 % Topical ointment - apply 1 application by TOPICAL route 3 times per day for 7 days; 1 tube; pm1 Refills: 0, Product Selection Permitted Addendum: 11/18/2021 07:22 Co-signature as Attending Physician, Ernesto Aleman MD I agree with the assessment and c angel plan of care. Signatures: Dispatcher [employer] EDErnesto Bunch MD MD cha Marinas, Patrick, HOSPITALITY HOST HOSPITALITY HOST pm1 Kristopher Scherer mw2 Kev Laureano, RN RN as6 Christina Cisneros RN RN ll3
--- NOTE | 2021-11-17 00:44 | ER ---
Nurse's Notes [facility] Name: Yan Camargo Age: 46 yrs Sex: Male : 1975 Arrival Date: 11/16/2021 Time: 21:14 Bed 15 Private MD: Diagnosis: Headache;Insect bite (nonvenomous) of other part of head Presentation: 11/16 22:14 Chief complaint: Patient states: states woke up this morning with a h/a, states scalp ll3 was itchy and thinks he has an insect bite. Coronavirus screen: Vaccine status: Patient reports being unvaccinated. At this time, the client does not indicate any symptoms associated with coronavirus-19. Ebola Screen: No symptoms or risks identified at this time. Initial Sepsis Screen: Does the patient meet any 2 criteria? No. Patient's initial sepsis screen is negative. Does the patient have a suspected source of infection? No. Patient's initial sepsis screen is negative. Risk Assessment: Do you want to hurt yourself or someone else? Patient reports no desire to harm self or others. Onset of symptoms was November 16, 2021. 22:14 Method Of Arrival: Ambulatory ll3 22:14 Acuity: MARTIR 3 ll3 Triage Assessment: 22:16 Headache History: Denies prior headaches. General: Appears comfortable, Behavior is ll3 calm, cooperative. Pain: Complains of pain in H/A. Neuro: Level of Consciousness is awake, alert, obeys commands, Oriented to person, place, time, situation. Respiratory: Respiratory effort is even, unlabored, Respiratory pattern is regular, symmetrical. Derm: Wound noted Other: Small red spots noted to scalp. 11/17 01:29 Pain: Also complains of. as6 Historical: - Allergies: 11/16 22:16 No Known Allergies; ll3 - Immunization history:: Client reports having NOT received the Covid vaccine. - Social history:: Smoking status: Patient reports the use of cigarette tobacco products, smokes one pack cigarettes per day. Screenin:50 Abuse screen: Denies threats or abuse. Denies injuries from another. Nutritional as6 screening: No deficits noted. Tuberculosis screening: No symptoms or risk factors identified. Fall Risk None identified. Assessment: 22:49 General: Appears in no apparent distress. comfortable, Behavior is calm, cooperative. as6 Pain: Complains of pain in head. Neuro: Level of Consciousness is awake, alert, obeys commands, Oriented to person, place, time, situation, Reports dizziness, headache. Cardiovascular: Reports lightheadedness. Respiratory: Airway is patent Trachea midline Respiratory effort is even, unlabored, Respiratory pattern is regular, symmetrical. Vital Signs: 22:14 Temp 98.6(O); Weight 95.25 kg; Height 5 ft. 6 in. (167.64 cm); ll3 22:52 BP 113 / 79; Pulse 85; Resp 14 S; Pulse Ox 98% on R/A; as6 11/17 00:30 BP 123 / 57; Pulse 83; Resp 16 S; Pulse Ox 97% on R/A; as6 01:26 BP 122 / 79; Pulse 81; Resp 19 S; Pulse Ox 95% on R/A; as6 11/16 22:14 Body Mass Index 33.89 (95.25 kg, 167.64 cm) ll3 ED Course: 11/16 21:14 Patient arrived in ED. kz 21:29 Kev Laureano, VAHID is Primary Nurse. as6 21:36 Zaki Soto NP is PHCP. pm1 21:36 Ernesto Aleman MD is Attending Physician. pm1 21:58 XRAY Chest (1 view) In Process Unspecified. EDMS 22:16 Triage completed. ll3 22:16 Arm band placed on Patient placed in an exam room, on a stretcher, on pulse oximetry. ll3 22:29 CT Head Brain wo Cont In Process Unspecified. EDMS 22:49 Inserted saline lock: 20 gauge in right antecubital area, using aseptic technique. as6 Blood collected. 22:50 Bed in low position. Side rails up X 1. system programmer on. Pulse ox on. NIBP on. as6 23:39 Inserted saline lock: 22 gauge in left antecubital area, using aseptic technique. Blood ds4 collected. 11/17 01:29 No provider procedures requiring assistance completed. IV discontinued, intact, as6 bleeding controlled, No redness/swelling at site. Pressure dressing applied. 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 Exp: as6 11/05/2022. Lot #: [id number]. } Route: IM; Site: left deltoid; 23:26 Follow up: Response: No adverse reaction as6 Outcome: 11/17 00:44 Discharge ordered by . pm1 01:30 Discharged to home ambulatory. as6 01:30 Condition: stable 01:30 Discharge instructions given to patient, Instructed on discharge instructions, follow up and referral plans. medication usage, Demonstrated understanding of instructions, follow-up care, medications, Prescriptions given X 2. 01:30 Patient left the ED. as6 Signatures: Dispatcher [employer] EDMS Miguel Montesinos ds4 Zaki Soto NP LITHOGRAPHIC PRESS OPERATOR pm1 Kev Laureano RN RN as6 Christina Cisneros RN RN ll3 Quita Yeung
--- NOTE | 2021-11-17 07:11 | EKG ---
Test Date: 2021-11-16 Test Time: 22:46:22 Folder Seamer: MEASUREMENT RESULTS: Intervals: Rate: 85 MA: 152 QRSD: 90 QT: 376 QTc: 447 [place]: P: 60 MA: 152 QRS: -29 T: 103 INTERPRETIVE STATEMENTS: Sinus rhythm with occasional premature ventricular complexes Possible Left atrial enlargement Anteroseptal infarct, age undetermined Abnormal ECG Compared to ECG 07/24/2020 20:07:55 Ventricular premature complex(es) now present Sinus tachycardia no longer present Myocardial infarct finding still present Electronically Signed On 11-17-21 07:09:27 CDT by Jace Bowles
--- NOTE | 2021-11-17 10:12 | RAD REPORT ---
EXAM DESCRIPTION: CT - Head Brain Wo Cont - 11/17/2021 6:59 am CLINICAL HISTORY: 46 years Male DIZZINESS TECHNIQUE: Axial noncontrast CT head with coronal and sagittal reformats. All CT scans at this [facility] it use dose modulation, iterative reconstruction, and/or weight based dosing when appropriate to red uce radiation dose to as low as reasonably achievable. COMPARISON: None. FINDINGS: Brain: No intracranial hemorrhage, midline shift, mass or mass effect. 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 No obvious large acute territorial infarction. Ventricles: No hydrocephalus. Orbits: Unremarkable. Sinuses: Partial opacification of the right maxillary sinus. Mastoid: Clear. Osseous: Unremarkable. Soft tissues: Unremarkable. IMPRESSION: No acute CT abnormality. Electronically signed by: Gustavo Smith MD 11/16/2021 10:49 PM CDT Due to temporary technical issues with the PACS/Fluency reporting system, reports are being signed by the in house radiologist without review as a courtesy to ensure prompt reporting. The interpreting r adiologist is fully responsible for the content of the report.
[2021-11-17 15:55] VITALS: TEMP 98.6
[2021-11-17 16:01] VITALS: BP 122/79; O2SAT 95
== END 2021-11-17 01:30 | disposition home or self-care (01) ==
LOC: ER 21:07
DX: R51.9 Headache, unspecified (principal); S00.86XA Insect bite (nonvenomous) of other part of head, initial encounter; R42 Dizziness and giddiness; Z23 Encounter for immunization; F17.210 Nicotine dependence, cigarettes, uncomplicated
CPT/HCPCS: 36415; 70450; 71045; 80048; 80076; 83735; 83880; 84484; 85025; 85610; 90471; 90714; 93005; 99284

== ENCOUNTER → 2022-01-26 | Emergency (ER) | payer OTHER ==
[~2022-01-26] MED LIST: ASPIRIN 81 MG CHEWABLE TABLET ONE; NA CHLORIDE 0.9% 1,000 ML ONE
--- OUTSIDE RECORDS SUMMARY | 2022-01-26 21:29 | XMS REPORT | Continuity of Care Document ---
:[address] [facility] t Address [address] [place] [address] [address] [place] [address] Care Team Providers Name Role Phone NOAH Primary Care Physician Unavailable Thu CHERRY Attending Clinician Unavailable Alysia FLORENCE Attending Clinician Jo Ann FLORENCE K.H. Attending Clinician ALYSIA Attending Clinician Unavailable BLANE Attending Clinician Unavailable ИВАН PEREYRA Attending Clinician Unavailable ИВАН PEREYRA Attending Clinician Unavailable Chin SIERRA Attending Clinician Unavailable BABAR Attending Clinician Unavailable Doctor Unassigned, Name Attending Clinician Unavailable Only, Test Attending Clinician Unavailable RADHA Attending Clinician Unavailable Yamile FLORENCE Attending Clinician CHIQUITA Attending Clinician Unavailable ALYSIA Admitting Clinician Unavailable ИВАН PEREYRA Admitting Clinician Unavailable BABAR Admitting Clinician Unavailable Payers Payer Name Policy Type Policy Number Effective Date Expiration Date S [facility] MEDICARE PART A \T\ [id number] 2017 B 00:00:00 [facility] [id number] 2019 00:00:00 Problems Condition Condition Condition Status Onset Resolution Last Treating Co mments Source Name Details Category Date Date Treatment Clinician Date S/P CABG x S/P CABG x Disease Active U nivers 2 2 4-19 ity of 00:00: [place] [address] Medical Branch Obesity Obesity Disease Active Univers (BMI (BMI 4-02 ity of 30-39.9) 30-39.9) 00:00: [place] [address] Medical Branch Coronary Coronary Disease Active Overview: Un chris artery artery 11-13 Formattin ity of disease disease 00:00: g of this [place] involving involving 00 note Medi compa [place] might be Branch coronary coronary different artery of artery of from the [place] original. 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 Medical (HIV) (HIV) Branch disease disease CHF CHF Disease Active Univers (congestiv (congestiv it y of e heart e heart [place] failure) failure) Medica l Branch Hyperlipid Hyperlipid Disease Active U nivers emia emia ity of [facility] Allergies, Adverse Reactions, Alerts Allergy Allergy Status Severity Reaction(s) Onset Inactive Treating Comm ents Source Name Type Date Date Clinician NO KNOWN Drug Active Univers ALLERGIE Class ity of S [facility] Social History Social Habit Start Date Stop Date Quantity Comments Source History of tobacco 1983-08-14 Cigarette Smoker University of use 00:00:00 [facility] Exposure to Not sure [place] of SARS-CoV-2 (event) [facility] Alcohol intake 2021-06-29 2021-06-29 .29 /d University of 00:00:00 00:00:00 [facility] Cigarettes smoked 2019-05-10 2019-05-10 Univers ity of current (pack per 00:00:00 00:00:00 [facility]) - Reported Branch Cigarette 2019-05-10 2019-05-10 University of pack-years 00:00:00 00:00:00 [facility] Tobacco use and 2019-05-10 2019-05-10 Never used Universit y of exposure 00:00:00 00:00:00 [facility] Branch History SDOH 2019-05-10 2019-05-10 2 University o f Alcohol Frequency 00:00:00 00:00:00 [facility] Branch History [facility] 2019-05-10 2019-05-10 1 University o f Alcohol Std Drinks 00:00:00 00:00:00 [place] [facility] History SDOH 2019-05-10 2019-05-10 2 University o f Alcohol Binge 00:00:00 00:00:00 [facility] Branch Alcohol Comment 2019-05-10 2019-05-10 Occasionally Univers ity of 00:00:00 00:00:00 [facility] Sex [birth year] At [birth year] Universit y of 00:00:00 00:00:00 [facility] Smoking Status Start Date Stop Date Source Current every day smoker 2019-05-10 00:00:00 Uni versity of [facility] Medications Ordered Filled Start Stop Current Ordering Indication Dosage Frequency Signature Comments Components Source Medication Medication Date Date Medication? Clinician (SIG) Name Name spironolact Yes [id number] 25mg Take 1 Univers one 25 mg 3-09 tablet by ity o f tablet 00:00: mouth [place] 00 daily. [facility] Branch spironolact Yes [id number] 25mg Take 1 Univers one 25 mg 3-09 tablet by ity o f tablet 00:00: mouth [place] 00 daily. [facility] metoprolol Yes [id number] 50mg Take 1 Univers succinate 3-07 tablet by ity o f XL 50 mg 24 00:00: mouth 2 [place] hr tablet 00 (two) [facility] daily. Please note tablet dose change. Appointmen t needed for further refills. Please contact office. metoprolol Yes [id number] 50mg Take 1 Univers succinate 3-07 tablet by ity o f XL 50 mg 24 00:00: mouth 2 [place] hr tablet 00 (two) [facility] daily. Please note tablet dose change. Appointmen t needed for further refills. Please contact office. metoprolol Yes [id number] 50mg Take 1 Univers succinate 3-07 tablet by ity o f XL 50 mg 24 00:00: mouth 2 [place] hr tablet 00 (two) [facility] daily. Please note tablet dose change. Appointmen t needed for further refills. Please contact office. metoprolol 2020-08- No [id number] 50mg Take 2 Univers succinate 0-28 -27 tablets by ity of XL 25 mg 24 00:00: 05:59 [place] tablet 00 :00 (two) [facility] daily for 90 days. spironolact 2020-08 No [id number] 25mg Take 1 Univers one 25 mg 0-28 - tablet by ity of tablet 00:00: 05:59 mouth [place] 00 :00 daily for Medical 90 days. Branch metoprolol 2020-08- No [id number] 50mg Take 2 Univers succinate 0-28 01-27 tablets by ity of XL 25 mg 24 00:00: 05:59 [place] tablet 00 :00 (two) Medical times [place] daily for 90 days. spironolact 2020-08- No [id number] 25mg Take 1 Univers one 25 mg 0-28 -27 tablet by ity of tablet 00:00: 05:59 mouth [place] 00 :00 daily for Medical 90 days. Branch metoprolol 2020-08- No [id number] 50mg Take 2 Univers succinate 0-28 -27 tablets by ity of XL 25 mg 24 00:00: 05:59 mouth [place] tablet 00 :00 (two) Medical times [place] daily for 90 days. spironolact 2020-08- No [id number] 25mg Take 1 Univers one 25 mg 0-28 -27 tablet by ity of tablet 00:00: 05:59 mouth [place] 00 :00 daily for Medical 90 days. Branch metoprolol 2020-08- No [id number] 50mg Take 2 Univers succinate 0-28 -27 tablets by ity of XL 25 mg 24 00:00: 05:59 mouth [place] tablet 00 :00 (two) Medical times [place] daily for 90 days. spironolact 2020-08- No [id number] 25mg Take 1 Univers one 25 mg 0-28 -27 tablet by ity of tablet 00:00: 05:59 mouth [place] 00 :00 daily for Medical 90 days. Branch metoprolol 2020-08- No [id number] 50mg Take 2 Univers succinate 0-28 01-27 tablets by ity of XL 25 mg 24 00:00: 05:59 mouth [place] tablet 00 :00 (two) Medical times [place] daily for 90 days. spironolact 2020-08- No [id number] 25mg Take 1 Univers one 25 mg 0-28 -27 tablet by ity of tablet 00:00: 05:59 mouth [place] 00 :00 daily for Medical 90 days. Branch TIVICAY 50 2020-0 Yes Univers mg tablet 7-12 ity of 00:00: [place] [facility] DESCOVY 2020-0 Yes Univers tablet 7-12 ity of 00:00: [place] [facility] TIVICAY 50 2020-0 Yes Univers mg tablet 7-12 ity of 00:00: [place] [facility] DESCOVY 2020-0 Yes Univers tablet 7-12 ity of 00:00: [place] [facility] TIVICAY 50 2020-0 Yes Univers mg tablet 7-12 ity of 00:00: [place] [facility] DESCOVY 2020-0 Yes Univers tablet 7-12 ity of 00:00: [place] [facility] TIVICAY 50 2020-0 Yes Univers mg tablet 7-12 ity of 00:00: [place] [facility] DESCOVY 2020-0 Yes Univers tablet 7-12 ity of 00:00: [place] [facility] TIVICAY 50 2020-0 Yes Univers mg tablet 7-12 ity of 00:00: [place] [facility] DESCOVY 2020-0 Yes Univers tablet 7-12 ity of 00:00: [place] [facility] TIVICAY 50 2020-0 Yes Univers mg tablet 7-12 ity of 00:00: [place] [facility] DESCOVY 2020-0 Yes Univers tablet 7-12 ity of 00:00: [place] [facility] TIVICAY 50 2020-0 Yes Univers mg tablet 7-12 ity of 00:00: [place] [facility] DESCOVY 2020-0 Yes Univers tablet 7-12 ity of 00:00: [place] [facility] TIVICAY 50 2020-0 Yes Univers mg tablet 7-12 ity of 00:00: [place] [facility] DESCOVY 2020-0 Yes Univers tablet 7-12 ity of 00:00: [place] [facility] LEVEMIR 2020-0 Yes Univers FLEXTOUCH 7-08 ity of U-100 00:00: [place] INSULN 100 00 Medical unit/mL (3 Branch mL) injection LEVEMIR 2020-0 Yes Univers FLEXTOUCH 7-08 ity of U-100 00:00: [place] INSULN 100 00 Medical unit/mL (3 Branch mL) injection LEVEMIR 2020-0 Yes Univers FLEXTOUCH 7-08 ity of U-100 00:00: [place] INSULN 100 00 Medical unit/mL (3 Branch mL) injection LEVEMIR 2020-0 Yes Univers FLEXTOUCH 7-08 ity of U-100 00:00: [place] INSULN 100 00 Medical unit/mL (3 Branch mL) injection LEVEMIR 2020-0 Yes Univers FLEXTOUCH 7-08 ity of U-100 00:00: [place] INSULN 100 00 Medical unit/mL (3 Branch mL) injection LEVEMIR 2020-0 Yes Univers FLEXTOUCH 7-08 ity of U-100 00:00: [place] INSULN 100 00 Medical unit/mL (3 Branch mL) injection LEVEMIR 2020-0 Yes Univers FLEXTOUCH 7-08 ity of U-100 00:00: [place] INSULN 100 00 Medical unit/mL (3 Branch mL) injection LEVEMIR 2020-0 Yes Univers FLEXTOUCH 7-08 ity of U-100 00:00: [place] INSULN 100 00 Medical unit/mL (3 Branch mL) injection gabapentin 0 Yes Univers 600 mg 6-24 ity of tablet 00:00: [place] [address] Medical Branch JARDIANCE 0 Yes Univers 25 mg Tab 6-24 ity of 00:00: [place] [address] Medical Branch glimepiride 2020-0 Yes Univer s 1 mg tablet 6-24 ity of 00:00: [place] [address] Medical Branch metFORMIN 2020-0 Yes Univers 1,000 mg 6-24 ity of tablet 00:00: [place] [address] Medical Branch rosuvastati 2020-0 Yes 40mg Take 40 mg Univers n 40 mg 6-24 by mouth ity of tablet 00:00: at [place] 00 bedtime. Medical Branch JANUVIA 100 2020-0 Yes Univer s mg tablet 6-24 ity of 00:00: [place] [address] Medical Branch furosemide 2020-0 Yes 40mg Take 40 mg U nivers 40 mg 6-24 by mouth ity of tablet 00:00: daily. [place] [address] Medical Branch gabapentin 2020-0 Yes Univers 600 mg 6-24 ity of tablet 00:00: [place] [address] Medical Branch JARDIANCE 2020-0 Yes Univers 25 mg Tab 6-24 ity of 00:00: [place] [address] Medical Branch glimepiride 2020-0 Yes Univer s 1 mg tablet 6-24 ity of 00:00: [place] [address] Medical Branch metFORMIN 2020-0 Yes Univers 1,000 mg 6-24 ity of tablet 00:00: [place] [facility] rosuvastati 2020-0 Yes 40mg Take 40 mg Univers n 40 mg 6-24 by mouth ity of tablet 00:00: at [place] [address] bedtime. Medical Branch JANIA 100 2020-0 Yes Univer s mg tablet 6-24 ity of 00:00: [place] [facility] furosemide 2020-0 Yes 40mg Take 40 mg U nivers 40 mg 6-24 by mouth ity of tablet 00:00: daily. Medical Branch gabapentin 2020-0 Yes Univers 600 mg 6-24 ity of tablet 00:00: [place] [facility] JARDIANCE 2020-0 Yes Univers 25 mg Tab 6-24 ity of 00:00: [place] [facility] glimepiride 2020-0 Yes Univer s 1 mg tablet 6-24 ity of 00:00: [place] [facility] metFORMIN 2020-0 Yes Univers 1,000 mg 6-24 ity of tablet 00:00: [place] [facility] rosuvastati 2020-0 Yes 40mg Take 40 mg Univers n 40 mg 6-24 by mouth ity of tablet 00:00: at [place] [address] bedtime. Medical Branch JANIA 100 2020-0 Yes Univer s mg tablet 6-24 ity of 00:00: [place] [facility] furosemide 2020-0 Yes 40mg Take 40 mg U nivers 40 mg 6-24 by mouth ity of tablet 00:00: daily. Medical Branch gabapentin 2020-0 Yes Univers 600 mg 6-24 ity of tablet 00:00: [place] [facility] JARDIANCE 2020-0 Yes Univers 25 mg Tab 6-24 ity of 00:00: [place] [facility] glimepiride 2020-0 Yes Univer s 1 mg tablet 6-24 ity of 00:00: [place] [address] Medical Branch metFORMIN 2020-0 Yes Univers 1,000 mg 6-24 ity of tablet 00:00: [place] [facility] rosuvastati 2020-0 Yes 40mg Take 40 mg Univers n 40 mg 6-24 by mouth ity of tablet 00:00: at [place] [address] bedtime. Medical Branch JANUVIA 100 2020-0 Yes Univer s mg tablet 6-24 ity of 00:00: [place] [facility] furosemide 2020-0 Yes 40mg Take 40 mg U nivers 40 mg 6-24 by mouth ity of tablet 00:00: daily. [place] [facility] gabapentin 2020-0 Yes Univers 600 mg 6-24 ity of tablet 00:00: [place] [facility] JARDIANCE 2020-0 Yes Univers 25 mg Tab 6-24 ity of 00:00: [place] [facility] glimepiride 2020-0 Yes Univer s 1 mg tablet 6-24 ity of 00:00: [place] [facility] metFORMIN 2020-0 Yes Univers 1,000 mg 6-24 ity of tablet 00:00: [place] [facility] rosuvastati 2020-0 Yes 40mg Take 40 mg Univers n 40 mg 6-24 by mouth ity of tablet 00:00: at [place] [address] bedtime. Medical Branch JANUVIA 100 2020-0 Yes Univer s mg tablet 6-24 ity of 00:00: [place] [address] Medical Branch furosemide 2020-0 Yes 40mg Take 40 mg U nivers 40 mg 6-24 by mouth ity of tablet 00:00: daily. [place] [address] Medical Branch gabapentin 2020-0 Yes Univers 600 mg 6-24 ity of tablet 00:00: [place] [address] Medical Branch JARDIANCE 2020-0 Yes Univers 25 mg Tab 6-24 ity of 00:00: [place] [facility] glimepiride 2020-0 Yes Univer s 1 mg tablet 6-24 ity of 00:00: [place] [address] Medical Branch metFORMIN 2020-0 Yes Univers 1,000 mg 6-24 ity of tablet 00:00: [place] [facility] rosuvastati 2020-0 Yes 40mg Take 40 mg Univers n 40 mg 6-24 by mouth ity of tablet 00:00: at [place] [address] bedtime. Medical Branch JANUVIA 100 2020-0 Yes Univer s mg tablet 6-24 ity of 00:00: [place] [facility] furosemide 1-0 Yes 40mg Take 40 mg U nivers 40 mg 6-24 by mouth ity of tablet 00:00: daily. [place] [address] Medical Branch gabapentin 2020-0 Yes Univers 600 mg 6-24 ity of tablet 00:00: [place] [address] Medical Branch JARDIANCE 2020-0 Yes Univers 25 mg Tab 6-24 ity of 00:00: [place] [address] Medical Branch glimepiride 2020-0 Yes Univer s 1 mg tablet 6-24 ity of 00:00: [place] [facility] metFORMIN 2020-0 Yes Univers 1,000 mg 6-24 ity of tablet 00:00: [place] [facility] rosuvastati 2020-0 Yes 40mg Take 40 mg Univers n 40 mg 6-24 by mouth ity of tablet 00:00: at [place] [address] bedtime. Medical Branch JANUVIA 100 2020-0 Yes Univer s mg tablet 6-24 ity of 00:00: [place] [facility] furosemide 2020-0 Yes 40mg Take 40 mg U nivers 40 mg 6-24 by mouth ity of tablet 00:00: daily. [place] [address] Medical Branch gabapentin 2020-0 Yes Univers 600 mg 6-24 ity of tablet 00:00: [place] [facility] JARDIANCE 2020-0 Yes Univers 25 mg Tab 6-24 ity of 00:00: [place] [facility] glimepiride 2020-0 Yes Univer s 1 mg tablet 6-24 ity of 00:00: [place] [facility] metFORMIN 2020-0 Yes Univers 1,000 mg 6-24 ity of tablet 00:00: [place] [facility] rosuvastati 2020-0 Yes 40mg Take 40 mg Univers n 40 mg 6-24 by mouth ity of tablet 00:00: at [place] [address] bedtime. Medical Branch [facility] 100 2020-0 Yes Univer s mg tablet 6-24 ity of 00:00: [place] [facility] furosemide 2020-0 Yes 40mg Take 40 mg U nivers 40 mg 6-24 by mouth ity of tablet 00:00: daily. [address] Branch Immunizations Ordered Filled Immunization Date Status Comments [facility] e Immunization Name Name Influenza Virus 2020-07-24 Completed Universit y of Vaccine Recomb Quad 00:00:00 [place] Medical IM, Preserv and ABX Branc h Free 18-64 YRS Influenza Virus 2020-07-24 Completed Universit y of Vaccine Recomb Quad 00:00:00 [place] [facility] IM, Preserv and ABX Branc h Free 18-64 YRS Influenza Virus 2020-07-24 Completed Universit y of Vaccine Recomb Quad 00:00:00 [place] Medical IM, Preserv and ABX Branc h [...] y of ADULT 2 DOSE, IM 00:00:00 [facility] dical Branch HEPLISAV HEP B, 2019-09-13 Completed Universit y of ADULT 2 DOSE, IM 00:00:00 [facility] dical Branch HEPLISAV HEP B, 2019-09-13 Completed Universit y of ADULT 2 DOSE, IM 00:00:00 [facility] dical Branch HEPLISAV HEP B, 2019-09-13 Completed Universit y of ADULT 2 DOSE, IM 00:00:00 [facility] dical Branch HEPLISAV HEP B, 2019-09-13 Completed Universit y of ADULT 2 DOSE, IM 00:00:00 [facility] dical Branch HEPLISAV HEP B, 2019-09-13 Completed Universit y of ADULT 2 DOSE, IM 00:00:00 [facility] dical Branch HEPLISAV HEP B, 2019-09-13 Completed Universit y of ADULT 2 DOSE, IM 00:00:00 [facility] dical Branch HEPLISAV HEP B, 2019-09-13 Completed Universit y of ADULT 2 DOSE, IM 00:00:00 [facility] dical Branch HEPLISAV HEP B, 2019-08-09 Completed Universit y of ADULT 2 DOSE, IM 00:00:00 [facility] dical Branch Hepatitis A Adult 2019-08-09 Completed Univers ity of 00:00:00 [facility] Branch HEPLISAV HEP B, 2019-08-09 Completed Universit y of ADULT 2 DOSE, IM 00:00:00 [facility] Hepatitis A Adult 2019-08-09 Completed Univers ity of 00:00:00 [facility] HEPLISAV HEP B, 2019-08-09 Completed Universit y of ADULT 2 DOSE, IM 00:00:00 [facility] Hepatitis A Adult 2019-08-09 Completed Univers ity of 00:00:00 [facility] HEPLISAV HEP B, 2019-08-09 Completed Universit y of ADULT 2 DOSE, IM 00:00:00 [facility] Branch Hepatitis A Adult 2019-08-09 Completed Univers ity of 00:00:00 [facility] HEPLISAV HEP B, 2019-08-09 Completed Universit y of ADULT 2 DOSE, IM 00:00:00 [facility] Hepatitis A Adult 2019-08-09 Completed Univers ity of 00:00:00 [facility] HEPLISAV HEP B, 2019-08-09 Completed Universit y of ADULT 2 DOSE, IM 00:00:00 [facility] Hepatitis A Adult 2019-08-09 Completed Univers ity of 00:00:00 [facility] HEPLISAV HEP B, 2019-08-09 Completed Universit y of ADULT 2 DOSE, IM 00:00:00 [facility] Hepatitis A Adult 2019-08-09 Completed Univers ity of 00:00:00 [facility] HEPLISAV HEP B, 2019-08-09 Completed Universit y of ADULT 2 DOSE, IM 00:00:00 [facility] Hepatitis A Adult 2019-08-09 Completed Univers ity of 00:00:00 [facility] Influenza Virus 2019-05-10 Completed Universit y of Vaccine Quad .5 mL 00:00:00 [facility] IM 6+ MO Branch Influenza Virus 2019-05-10 Completed Universit y of Vaccine Quad .5 mL 00:00:00 [place] [facility] IM 6+ MO Branch Influenza Virus 2019-05-10 Completed Universit y of Vaccine [place] .5 mL 00:00:00 [facility] IM 6+ MO Branch Influenza Virus 2019-05-10 Completed Universit y of Vaccine [place] .5 mL 00:00:00 [place] Medical IM 6+ MO Branch Influenza Virus [...] of Vaccine Quad .5 mL 00:00:00 [facility] 6+ MO Branch Vital Signs Vital Name Observation Time Observation Value Comments Source Systolic blood 2021-06-29 14:28:00 118 mm[Hg] Univer sity of pressure [facility] Diastolic blood 2021-06-29 14:28:00 79 mm[Hg] Unive rsity of [facility] Heart rate 2021-06-29 14:28:00 68 /min [facility] Respiratory rate 2021-06-29 14:28:00 19 /min [facility] height 2021-06-29 14:28:00 167.6 cm [facility] Body weight 2021-06-29 14:28:00 92.171 kg [facility] BMI 2021-06-29 14:28:00 32.80 kg/m2 [facility] Oxygen saturation in 2021-06-29 14:28:00 94 /min [facility] Arterial blood by [facility] Pulse oximetry Branch Procedures This patient has no known procedures. Encounters Start End Encounter Admission Attending Care Care Encounter Source Date/Time Date/Time Type Type Clinicians Facility Department ID 2021-12-10 2021-12-10 Outpatient Jing [facility] [id number] Univers 10:00:00 10:00:00 SENDIL [id number] [facility] 2021-12-10 2021-12-10 Outpatient Jing [facility] [id number] Univers 10:00:00 10:00:00 SENDIL [facility] 2021-12-09 2021-12-09 Telephone Alysia [facility] [id number] Univers 00:00:00 00:00:00 Jj ANGLENORA [id number] i ty of [facility] [id number] Kofi NORRIS [phone] [place] NAL 9 [facility] 2021-10-19 2021-10-19 Telephone Jo Ann [facility] [id number] Univers 00:00:00 00:00:00 Sendil Thu [place] [id number] ity [facility] [id number] [id number] [place] 2021-10-16 2021-10-16 [facility] [id number] Univers 00:00:00 00:00:00 Sendil Thu [place] [id number] ity [facility] [id number] [id number] [address] 2021-10-12 2021-10-12 [facility] [id number] Univers 10:00:00 10:00:00 SENDIL [id number] ity [facility] 2021-10-12 2021-10-12 [facility]patient [facility] [id number] Univers 10:00:00 10:00:00 SENDIL ity [facility] 2021-08-17 2021-08-17 Telephone EVONNE Carter [id number] Univers 00:00:00 00:00:00 Jj ROEL [id number] it [facility] [id number] [place] as [id number] [address] 2021-07-29 2021-07-29 Outpatient R [facility] [id number] Univers 13:00:00 13:00:00 [id number] ity [facility] 2021-07-29 2021-07-29 Outpatient R ALYSIA [facility] [id number] Univers 13:00:00 13:00:00 JJ ity [facility] 2021-07-28 2021-07-28 Outpatient R [facility] [id number] Univers 07:00:00 07:00:00 [id number] ity [facility] 2021-07-28 2021-07-28 [facility] [id number] Univers 00:00:00 00:00:00 Jj HEALTH [id number] it y of [id number] GARC[place] [id number] [address] ([facility]) 2021-07-28 2021-07-28 [facility] [id number] Univers 00:00:00 00:00:00 Jj HEALTH [id number] it y [id number] [id number] [address] ([facility]) 2021-07-06 2021-07-06 [facility] [id number] Univers 08:00:00 23:59:00 JJ ity of [facility] 2021-07-06 2021-07-06 Hospital [facility] [id number] Univers 08:00:00 23:59:00 Encounter Jj [place] [id number] ity of [facility] [id number] [place] [id number] [place] NAL [address] [facility] 2021-06-29 2021-06-29 Outpatient [facility] [id number] Univers 08:20:00 09:09:21 JJ ity [facility] 2021-06-29 2021-06-29 Office [facility] [id number] Univers 08:13:57 09:09:21 Visit Jj [place] [id number] i ty of [facility] [id number] [phone] [place] NAL 0[address] [facility] 2021-06-10 2021-06-10 Outpatient R JO ANN [facility] [id number] Univers 10:00:00 10:44:46 SENDIL ity of [facility] 2021-06-08 2021-06-08 Outpatient R [facility] [id number] Univers 08:00:00 23:59:00 CHILVANA ity o [facility] 2021-03-17 2021-03-17 Outpatient R JO ANN [facility] [id number] Univers 09:00:00 23:59:00 SENDIL [facility] 2021-03-16 2021-03-16 Outpatient R HAFSARONALD [facility] [id number] Univers 08:40:00 10:18:17 HAFSA, RONALD [facility] 2021-03-04 2021-03-04 Outpatient R JO ANN [facility] [id number] Univers 08:00:00 08:00:00 SENDIL [facility] 2021-02-26 2021-02-26 Outpatient Jing SIERRA [facility] [id number] Univers 09:12:48 23:59:00 FAVIAN [facility] 2020-12-24 2020-12-24 Outpatient MARCOS BLANTON [facility] [id number] Univers 15:30:00 15:35:10 [facility] 2020-11-30 2020-12-07 Inpatient R MARCOS ECKERT [facility] [id number] Univers 06:44:00 19:20:00 [facility] 2020-11-30 2020-11-30 Surgery Evonne [id number] 07:15:00 15:03:00 Roel [id number] [facility] [id number] 2020-11-30 2020-11-30 Orders Doctor BRISEIDA [id number] 00:00:00 00:00:00 Only Unassigned, ROEL [id number] [facility] [id number] 2020-11-26 2020-11-26 Laboratory Only, [facility] [id number] 09:39:58 09:54:58 Only Test [place] [id number] [place] [id number] [place] [id number] 2020-11-20 2020-11-20 Outpatient Jing GARCIA [facility] [id number] Univers 10:00:00 10:00:00 ROBBY [facility] 2020-11-13 2020-11-13 Outpatient R MARCOS ECKERT [facility] [id number] Univers 12:06:38 23:59:00 [facility] 2020-11-13 2020-11-13 Outpatient R MARCOS ECKERT [facility] [id number] Univers 00:00:00 00:00:00 [id number] [facility] 2020-11-13 2020-11-13 Telephone Evonne Ovalle [id number] 00:00:00 00:00:00 Freeman Boles [id number] [facility] [id number] 2020-10-28 2020-10-28 [facility] [id number] 08:48:15 09:36:28 Visit Sammi Crespo [id number] [place] [id number] [facility] [id number] [facility] 059 [facility] 2020-10-15 2020-10-15 Outpatient R CHIQUITA [facility] [id number] Univers 14:45:00 16:52:22 [facility] 2020-09-24 2020-09-24 Outpatient R CHIQUITA [facility] [id number] Univers 08:30:00 09:40:43 [facility] 2020-09-10 2020-09-10 [facility] [id number] Univers 09:00:00 09:00:00 SENDIL [facility] Results This patient has no known results.
[2022-01-26 22:57] LABS: Absolute Lymphocytes (CBC) 1.6 K/uL (0.7-4.9); Hematocrit 52.6 % (39.6-49.0); Lymphocytes % 22.3 % (15.3-44.8); MPV 9.4 fL (7.6-11.3); RBC Red Blood Cell Count 5.75 M/uL (4.33-5.43)
[2022-01-26 23:00] LABS: Protime INR 0.97
[2022-01-26 23:12] LABS: Bilirubin Direct 0.1 mg/dL (0-0.2); Bilirubin Total 0.4 mg/dL (0.2-1.0); Magnesium 2.2 mg/dL (1.8-2.4); Potassium 3.5 mmol/L (3.5-5.1); Protein, Total 7.5 g/dL (6.4-8.2); Troponin High Sensitivity 13.1 pg/mL (<58.9)
--- NOTE | 2022-01-26 23:15 | ER ---
Nurse's Notes [facility] Name: Yan Camargo Age: 46 yrs Sex: Male : 1975 Arrival Date: 01/26/2022 Time: 21:28 Bed 15 Private MD: Diagnosis: Chest pain, unspecified;Other specified diabetes mellitus with hyperglycemia;Tobacco use Presentation: 01/26 21:34 Chief complaint: Patient states: "I am having pain in my chest, I normally have a pain vc1 that I am used to but now it has moved to the left side of my neck, both arms, and now I have burning in my legs.". 21:34 Method Of Arrival: Ambulatory vc1 21:36 Coronavirus screen: Vaccine status: Patient reports being unvaccinated. At this time, vc1 the client does not indicate any symptoms associated with coronavirus-19. Ebola Screen: No symptoms or risks identified at this time. Initial Sepsis Screen: Does the patient meet any 2 criteria? No. Patient's initial sepsis screen is negative. Does the patient have a suspected source of infection? No. Patient's initial sepsis screen is negative. Risk Assessment: Do you want to hurt yourself or someone else? Patient reports no desire to harm self or others. Onset of symptoms is unknown. 21:36 Acuity: MARTIR 3 vc1 Triage Assessment: 21:37 General: Appears in no apparent distress. Behavior is anxious. Pain: Complains of pain vc1 in chest Pain radiates to right arm, left arm and left anterior aspect of neck Pain currently is 7 out of 10 on a pain scale. Neuro: Level of Consciousness is awake, alert, obeys commands, Oriented to person, place, time, situation, Appropriate for age. Cardiovascular: Reports chest pain. Respiratory: Reports pain with cough "Smokers Cough" Airway is patent Respiratory effort is even, unlabored, Respiratory pattern is regular, symmetrical. GI: No deficits noted. : No deficits noted. Derm: No deficits noted. Musculoskeletal: No deficits noted. Historical: - Allergies: 21:37 No Known Allergies; vc1 - PMHx: 21:37 CHF; Diabetes - IDDM; HIV; vc1 - PSHx: 21:37 Coronary artery bypass graft; vc1 - Immunization history:: Adult Immunizations up to date, Client reports having NOT received the Covid vaccine. Flu vaccine status is unknown. - Social history:: Smoking status: Patient reports the use of cigarette tobacco products, smokes one pack cigarettes per day. - Family history:: not pertinent. Screenin:41 Abuse screen: Denies threats or abuse. Nutritional screening: No deficits noted. vc1 Tuberculosis screening: No symptoms or risk factors identified. Fall Risk None identified. Assessment: 22:30 General: Appears in no apparent distress. Behavior is calm, cooperative. Pain: lp1 Complains of pain in chest Pain radiates to right arm and left arm, posterior neck Pain currently is 8 out of 10 on a pain scale. Quality of pain is described as aching, Pain began gradually. Neuro: Level of Consciousness is awake, alert, obeys commands, Oriented to person, place, time, situation. Cardiovascular: Patient's skin is warm and dry. Rhythm is sinus rhythm. Respiratory: Respiratory effort is even, unlabored, Breath sounds are clear bilaterally. Denies shortness of breath. GI: No signs and/or symptoms were reported involving the gastrointestinal system. : No signs and/or symptoms were reported regarding the genitourinary system. EENT: No signs and/or symptoms were reported regarding the EENT system. Derm: Skin is intact, Skin is dry, Skin is normal. Musculoskeletal: No deficits noted. 23:45 Reassessment: Patient appears in no apparent distress at this time. Patient and/or lp1 family updated on plan of care and expected duration. Pain level reassessed. Patient is alert, oriented x 3, equal unlabored respirations, skin warm/dry/pink. 01/27 01:00 Reassessment: LIDYA Rodriguez at bedside to discuss plan of care with patient for lp1 admission, patient declines to be admitted, reports "I'll just go and see my PCP tomorrow"; Discussed with patient returning to ED if any increased chest pain or discomfort, demonstrates understanding. Vital Signs: 01/26 21:36 BP 125 / 79; Pulse 81; Resp 20; Temp 97; Pulse Ox 98% ; Weight 95.25 kg; Height 5 ft. 6 vc1 in. (167.64 cm); Pain 7/10; 22:30 BP 125 / 79; Pulse 80; Resp 14; Pulse Ox 98% on R/A; Pain 8/10; lp1 23:15 BP 129 / 82; Pulse 80; Resp 20; Pulse Ox 98% on R/A; lp1 01/27 00:00 BP 132 / 76; Pulse 73; Resp 18; Pulse Ox 98% on R/A; lp1 00:45 BP 106 / 65; Pulse 75; Resp 19; Pulse Ox 98% on R/A; Pain 2/10; lp1 01/26 21:36 Body Mass Index 33.89 (95.25 kg, 167.64 cm) vc1 ED Course: 01/26 21:28 Patient arrived in ED. ja2 21:37 Triage completed. vc1 21:37 Arm band placed on left wrist. vc1 21:52 Ernesto Aleman MD is Attending Physician. armani 21:53 Deanne Alejandro, RN is Primary Nurse. lp1 22:28 XRAY Chest (1 view) In Process Unspecified. EDMS 22:30 Patient has correct armband on for positive identification. Call light in reach. Client lp1 placed on continuous cardiac and pulse oximetry monitoring. NIBP monitoring applied. 22:30 No provider procedures requiring assistance completed. Patient maintains SpO2 lp1 saturation greater than 95% on room air. 22:35 Inserted saline lock: 20 gauge in right forearm, using aseptic technique. Blood lp1 collected. 22:35 COVID swab sent to lab. lp1 23:12 Tucker Dixon is Hospitalizing Provider. [facility] 23:31 Patient admitted, IV remains in place. lp1 01/27 00:10 Angio Aorta For Dissection In Process Unspecified. EDMS Administered Medications: 01/26 22:30 Drug: Aspirin 162 mg Route: PO; lp1 23:31 Follow up: Response: No adverse reaction lp1 23:00 Drug: NS 0.9% 1000 ml Route: IV; Rate: 125 ml/hr; Site: right forearm; lp1 Medication: 21:53 VIS not applicable for this client. lp1 Outcome: 23:14 Decision to Hospitalize by Provider. [facility] 23:31 Condition: stable lp1 23:31 Instructed on the need for admit. 01/27 01:09 AMA AMA form signed lp1 01:09 Patient left the ED. lp1 Signatures: Dispatcher [employer] EDMS Ernesto Aleman MD MD cha Pena, Laura, RN RN lp1 Julia Gutiérrez [facility] [place] RN RN vc1 Corrections: (The following items were deleted from the chart) 01/26 21:41 21:34 Chief complaint: Patient states: "I am having pain in my chest, I normally have a vc1 pain that I am used to but now it has moved to the left side of my neck, both arms, and now I have tingling in my legs." vc1
--- NOTE | 2022-01-26 23:15 | EDPHYS ---
Physician Documentation [facility] Name: Yan Camargo Age: 46 yrs Sex: Male : 1975 Arrival Date: 01/26/2022 Time: 21:28 Bed 15 Private MD: ED Physician Ernesto Aleman HPI: 01/26 23:05 This 46 yrs old Male presents to ER via Ambulatory with complaints of Chest armani Pain, Arm Pain, Neck Pain, <24hrs Old. 23:05 The patient or guardian reports chest pain that is located primarily in the anterior armani chest wall, bilaterally. Onset: 11 hour(s) ago. The pain radiates to Associated signs and symptoms: Pertinent positives: None. The chest pain is described as aching. Duration: The patient or guardian reports multiple episodes, that wax and wane. Modifying factors: The symptoms are alleviated by remaining still, the symptoms are aggravated by movement, palpation of area. Severity of pain: At its worst the pain was mild in the emergency department the pain is unchanged. The patient has experienced similar episodes in the past, a few times. Historical: - Allergies: 21:37 No Known Allergies; vc1 - PMHx: 21:37 CHF; Diabetes - IDDM; HIV; vc1 - PSHx: 21:37 Coronary artery bypass graft; vc1 - Immunization history:: Adult Immunizations up to date, Client reports having NOT received the Covid vaccine. Flu vaccine status is unknown. - Social history:: Smoking status: Patient reports the use of cigarette tobacco products, smokes one pack cigarettes per day. - Family history:: not pertinent. ROS: 23:05 Constitutional: Negative for fever, chills, and weight loss, Eyes: Negative for injury, armani pain, redness, and discharge, ENT: Negative for injury, pain, and discharge, Neck: Negative for injury, pain, and swelling, Respiratory: Negative for shortness of breath, cough, wheezing, and pleuritic chest pain, Abdomen/GI: Negative for abdominal pain, nausea, vomiting, diarrhea, and constipation, Back: Negative for injury and pain, : Negative for injury, bleeding, discharge, and swelling, Skin: Negative for injury, rash, and discoloration, Neuro: Negative for headache, weakness, numbness, tingling, and seizure, Psych: Negative for depression, anxiety, suicide ideation, homicidal ideation, and hallucinations, Allergy/Immunology: Negative for hives, rash, and allergies, Endocrine: Negative for neck swelling, polydipsia, polyuria, polyphagia, and marked weight changes, Hematologic/Lymphatic: Negative for swollen nodes, abnormal bleeding, and unusual bruising. 23:05 Cardiovascular: Positive for chest pain, of the chest. 23:05 MS/extremity: Positive for pain, of the right leg and left leg. Exam: 23:08 Constitutional: This is a well developed, well nourished patient who is awake, alert, armani and in no acute distress. Head/Face: Normocephalic, atraumatic. Eyes: Pupils equal round and reactive to light, extra-ocular motions intact. Lids and lashes normal. Conjunctiva and sclera are non-icteric and not injected. Cornea within normal limits. Periorbital areas with no swelling, redness, or edema. ENT: Nares patent. No nasal discharge, no septal abnormalities noted. Tympanic membranes are normal and external auditory canals are clear. Oropharynx with no redness, swelling, or masses, exudates, or evidence of obstruction, uvula midline. Mucous membranes moist. Neck: Trachea midline, no thyromegaly or masses palpated, and no cervical lymphadenopathy. Supple, full range of motion without nuchal rigidity, or vertebral point tenderness. No Meningismus. Cardiovascular: Regular rate and rhythm with a normal S1 and S2. No gallops, murmurs, or rubs. Normal PMI, no JVD. No pulse deficits. Respiratory: Lungs have equal breath sounds bilaterally, clear to auscultation and percussion. No rales, rhonchi or wheezes noted. No increased work of breathing, no retractions or nasal flaring. Abdomen/GI: Soft, non-tender, with normal bowel sounds. No distension or tympany. No guarding or rebound. No evidence of tenderness throughout. Back: No spinal tenderness. No costovertebral tenderness. Full range of motion. Male : Normal genitalia with no discharge or lesions. Skin: Warm, dry with normal turgor. Normal color with no rashes, no lesions, and no evidence of cellulitis. MS/ Extremity: Pulses equal, no cyanosis. Neurovascular intact. Full, normal range of motion. Neuro: Awake and alert, GCS 15, oriented to person, place, time, and situation. Cranial nerves II-XII grossly intact. Motor strength 5/5 in all extremities. Sensory grossly intact. Cerebellar exam normal. Normal gait. Psych: Awake, alert, with orientation to person, place and time. Behavior, mood, and affect are within normal limits. 23:08 Chest/axilla: Inspection: normal, Palpation: is normal, no acute changes, Axilla: are normal, Lymph nodes: lymphadenopathy is not appreciated. 23:08 Abdomen/GI: Inspection: abdomen appears normal, Bowel sounds: normal, Palpation: abdomen is soft and non-tender, Liver: no appreciated palpable abnormalities, Hernia: not appreciated. 23:18 ECG was reviewed by the Attending Physician. [facility] Vital Signs: 21:36 BP 125 / 79; Pulse 81; Resp 20; Temp 97; Pulse Ox 98% ; Weight 95.25 kg; Height 5 ft. 6 vc1 in. (167.64 cm); Pain 7/10; 22:30 BP 125 / 79; Pulse 80; Resp 14; Pulse Ox 98% on R/A; Pain 8/10; lp1 23:15 BP 129 / 82; Pulse 80; Resp 20; Pulse Ox 98% on R/A; lp1 06/16 00:00 BP 132 / 76; Pulse 73; Resp 18; Pulse Ox 98% on R/A; lp1 00:45 BP 106 / 65; Pulse 75; Resp 19; Pulse Ox 98% on R/A; Pain 2/10; lp1 01/26 21:36 Body Mass Index 33.89 (95.25 kg, 167.64 cm) vc1 MDM: 01/26 21:52 Patient medically screened. [facility] 23:08 Differential diagnosis: abnormal EKG, acute myocardial infarction, anxiety, coronary armani artery disease chest wall pain, congestive heart failure Cholelithiasis costochondritis, herpes zoster, hiatal hernia, pancreatitis, pleurisy, pulmonary embolus, stable angina, unstable angina. HEART Score: History: Moderately Suspicious (1), ECG: Non specific repolarization disturbance / LBTB / PM (1), Age: > 45 and < 65 years (1), Risk Factors: > or = 3 Risk factors for atherosclerotic disease (2), [Hypercholesterolemia] [Hypertension] [DM] [+ Family HX] Troponin: < or = 1 x Normal Limit (0). The patient was given aspirin in the Emergency Department. The patient's deep vein thrombosis risk score was calculated as follows: Total Score: 0. This patient was found to be at low risk for a deep vein thrombosis by using the Well's assessment criteria. The patient's pulmonary embolism risk score was calculated as follows: Total Score: 0-2 points. This patient was found to be at low risk for a pulmonary embolism by using the Well's assessment criteria. GUILLERMO Risk Score: 1 - Three or more CAD risk factors, 1- Known CAD, TOTAL SCORE = 2. Data reviewed: vital signs, nurses notes, lab test result(s), EKG, radiologic studies, plain films. Data interpreted: head of biology: rate is 81 beats/min, rhythm is regular, Pulse oximetry: on room air is 98 %. Test interpretation: by ED physician or midlevel provider: ECG, plain radiologic studies. Counseling: I had a detailed discussion with the patient and/or guardian regarding: the historical points, exam findings, and any diagnostic results supporting the discharge/admit diagnosis, lab results, radiology results, the need for further work-up and treatment in the hospital. 01/26 21:54 Order name: Basic Metabolic Panel; Complete Time: 23:16 01/26 21:54 Order name: CBC with Diff; Complete Time: 23:02 01/26 21:54 Order name: D-Dimer; Complete Time: 23:02 01/26 21:54 Order name: LFT's; Complete Time: 23:16 01/26 21:54 Order name: Magnesium; Complete Time: 23:16 01/26 21:54 Order name: NT PRO-BNP; Complete Time: 23:16 01/26 21:54 Order name: PT-INR; Complete Time: 23:02 01/26 21:54 Order name: Troponin HS; Complete Time: 23:16 [facility] 01/26 21:54 Order name: XRAY Chest (1 view) 01/26 21:54 Order name: Lipase; Complete Time: 23:16 01/26 21:54 Order name: SARS-COV-2 RT PCR (Document "Date of Onset" if Symptomatic) 01/26 21:54 Order name: UDS 01/26 23:17 Order name: CT Aorta for Dissection 01/26 23:32 Order name: Urine Dipstick-Ancillary; Complete Time: 23:36 EDMS 01/26 21:54 Order name: EKG; Complete Time: 21:55 [facility] 01/26 21:54 Order name: Cardiac monitoring; Complete Time: 22:42 [facility] 01/26 21:54 Order name: EKG - Nurse/Tech; Complete Time: 22:42 [facility] 01/26 21:54 Order name: IV Saline Lock; Complete Time: 22:42 [facility] 01/26 21:54 Order name: Labs collected and sent; Complete Time: 22:42 [facility] 01/26 21:54 Order name: O2 Per Protocol; Complete Time: 22:42 [facility] 01/26 21:54 Order name: O2 Sat Monitoring; Complete Time: 22:42 [facility] 01/26 21:54 Order name: Urine Dipstick-Ancillary (obtain specimen); Complete Time: 23:30 [facility] 01/26 23:21 Order name: Angio Aorta For Dissection EDMS EC:18 Rate is 81 beats/min. Rhythm is regular. QRS [place] is Normal. OR interval is normal. QRS armani interval is normal. QT interval is normal. No Q waves. T waves are Inverted in leads I, aVL. No ST changes noted. Clinical impression: NSR w/ Non-specific ST/T Changes. Administered Medications: 22:30 Drug: Aspirin 162 mg Route: PO; lp1 23:31 Follow up: Response: No adverse reaction lp1 23:00 Drug: NS 0.9% 1000 ml Route: IV; Rate: 125 ml/hr; Site: right forearm; lp1 Disposition Summary: 01/26/22 23:14 Hospitalization Ordered Hospitalization Status: Observation armani Provider: Tucker Dixon cha Location: Telemetry/MedSur (observation) armani Condition: Stable armani Problem: new armani Symptoms: have improved armani Bed/Room Type: Standard armani Room Assignment: armani Diagnosis - Chest pain, unspecified armani - Other specified diabetes mellitus with hyperglycemia armani - Tobacco use armani Forms: - Medication Reconciliation Form armani - SBAR form armani Signatures: Dispatcher [employer] EDMS Ernesto Aleman MD MD cha Pena, Laura RN RN lp1 [place] RN RN vc1 Dorothy Michaels PA PA sb3
[2022-01-26 23:32] LABS: Urine Blood Trace-intact (Negative); Urine Glucose 3+ (Negative); Urine Protein Negative (Negative); Urine Specific Gravity <=1.005 (1.005-1.030); Urine pH 5.5 (5.0-7.0)
[2022-01-27 00:11] LABS: Barbiturates NEGATIVE (NEGATIVE); Benzodiazepines NEGATIVE (NEGATIVE); Cocaine NEGATIVE (NEGATIVE); METHAMPHETAM NEGATIVE (NEGATIVE); Methadone NEGATIVE (NEGATIVE); Opiates NEGATIVE (NEGATIVE); Phencyclidine NEGATIVE (NEGATIVE); THC Cannibis NEGATIVE (NEGATIVE)
[2022-01-27 01:22] VITALS: O2SAT 98
[2022-01-27 01:28] VITALS: TEMP 97
[2022-01-27 01:31] VITALS: BP 106/65
--- NOTE | 2022-01-27 10:18 | RAD REPORT ---
EXAM DESCRIPTION: XR Chest, 1 View CLINICAL HISTORY: The patient is 46 years old and is Male; CHEST PAIN TECHNIQUE: Frontal view of the chest. COMPARISON: No relevant prior studies available. FINDINGS: Lungs: Mildly prominent interstitial markings. No consolidation. Pleural space: Unremarkable. No pneumothorax. Heart: Cardiac silhouette appears enlarged. Mediastinum: Unremarkable. Bones/joints: Median sternotomy wires. IMPRESSION: Mildly prominent interstitial markings. No consolidation. Electronically signed by: Mario Louis MD 01/27/2022 12:20 AM CDT Due to temporary technical issues with the PACS/Fluency reporting system, reports are being signed by the in house radiologists without review as a courtesy to insure prompt reporting. The interpreting radiologist is fully responsible for the content of the report.
--- NOTE | 2022-01-27 13:44 | RAD REPORT ---
EXAM DESCRIPTION: Angio Aorta for Dissection CLINICAL HISTORY: Dissection. COMPARISON: Chest radiograph from today. CTA of the chest from September 21, 2019. TECHNIQUE: CTA of the chest, abdomen, and pelvis was performed following intravenous administration of iodinated contrast. Oral contrast was not administered. Axial, coronal, and sagittal reconstructio ns were created and sent to PACS. 3D reconstructions were created on an independent workstation and sent to PACS for evaluation. This exam was performed according to our departmental dose-optimization program, which includes autom ated exposure control, adjustment of the mA and/or kV according to patient size and/or use of iterati ve reconstruction technique. FINDINGS: Vascular: No aortic aneurysm or dissection. Mild calcific atherosclerosis. The celiac axis , SMA, and EDDIE and their major branches are patent. Patent bilateral renal arteries, with a duplicate d system on the right. No central pulmonary embolism. Lungs and pleura: Trace diffuse pulmonary intralobular septal thickening, similar to prior. No pulmon gayle consolidation. No pleural effusion. No pneumothorax. Mild centrilobular emphysema is active. Mediastinum and neck: No mediastinal lymphadenopathy identified by CT size criteria. Unremarkable brittney earance of the thyroid gland. Cardiac: Thinning at the left ventricular apex, similar to prior. Mild cardiomegaly. Prior CABG. No p ericardial effusion. No thoracic aortic aneurysm or dissection. Hepatobiliary: No concerning hepatic lesion identified. The portal veins are patent. The gallbladder is unremarkable. No biliary ductal dilatation. Pancreas: Unremarkable. Spleen: Unremarkable. Gastrointestinal: No evidence of bowel obstruction or perienteric inflammation. The appendix is semaj l. Adrenals: No abnormality identified in either adrenal gland. Renal: No concerning parenchymal abnormality in either kidney. No hydronephrosis or urolithiasis. Mul tifocal small chronic right renal cortical defects. Bladder/Reproductive: Unremarkable appearance of the urinary bladder by CT technique. Lymphatics: No lymphadenopathy identified by CT size criteria. Musculoskeletal: No concerning osseous lesion identified. Fluid / peritoneum: No significant free fluid. No free intraperitoneal air identified. IMPRESSION 1. No aortic aneurysm or dissection. 2. Prior CABG. Thinning of the left ventricular apex, similar to prior. 3. No pulmonary consolidation or pleural effusion. Chronic mild pulmonary interstitial thickening. Electronically signed by: Yoselin Collazo MD 01/27/2022 1:10 AM CDT Due to temporary technical issues with the PACS/Fluency reporting system, reports are being signed by the in house radiologists without review as a courtesy to insure prompt reporting. The interpreting radiologist is fully responsible for the content of the report.
--- NOTE | 2022-01-27 15:28 | EKG ---
Test Date: 2022-01-26 Test Time: 22:25:07 Accounts Specialist: TERRA MEASUREMENT RESULTS: Intervals: Rate: 77 SC: 172 QRSD: 96 QT: 376 QTc: 425 [place]: P: 59 SC: 172 QRS: 39 T: 136 INTERPRETIVE STATEMENTS: Sinus rhythm with occasional premature ventricular complexes Possible Left atrial enlargement Anteroseptal infarct, age undetermined ST & T wave abnormality, consider lateral ischemia Abnormal ECG Compared to ECG 11/16/2021 22:46:22 ST (T wave) deviation now present Possible ischemia now present Myocardial infarct finding still present Electronically Signed On 01-27-22 15:27:10 CDT by Dragan Collins
--- NOTE | 2022-01-27 15:28 | EKG ---
Test Date: 2022-01-26 Test Time: 22:25:43 [facility] Supervisor: TERRA MEASUREMENT RESULTS: Intervals: Rate: 81 TX: 166 QRSD: 102 QT: 376 QTc: 436 [place]: P: 52 TX: 166 QRS: 44 T: 138 INTERPRETIVE STATEMENTS: Sinus rhythm with occasional premature ventricular complexes Possible Left atrial enlargement Anterolateral infarct, age undetermined Abnormal ECG Compared to ECG 01/26/2022 22:25:07 ST (T wave) deviation no longer present Possible ischemia no longer present Myocardial infarct finding still present Electronically Signed On 01-27-22 15:27:06 CDT by Dragan Collins
== END ==
LOC: ER 21:26
DX: R07.89 Other chest pain (principal); E13.65 Other specified diabetes mellitus with hyperglycemia; Z72.0 Tobacco use; I50.9 Heart failure, unspecified; F17.210 Nicotine dependence, cigarettes, uncomplicated; Z21 Asymptomatic human immunodeficiency virus [HIV] infection status; Z95.1 Presence of aortocoronary bypass graft; Z20.822 Contact with and (suspected) exposure to COVID-19
CPT/HCPCS: 93005 ×2; 85025; 80048; 36415; 83735; 85610; 85379; 80076; 81003; 84484; 83690; 83880; 80307; 71275; 74175; 71045; 99285; U0003; Q9967; J7030

== ENCOUNTER 2022-07-14 22:04 | Inpatient (IN) | payer OTHER ==
--- OUTSIDE RECORDS SUMMARY | 2022-07-14 22:20 | XMS REPORT | Continuity of Care Document ---
:1975 Author Organization [facility] t Address [address] [place] [address] Care Team Providers Name Role Phone HenryMohan Primary Care Physician MARCOS ECKERT Attending Clinician Unavailable ROBBY HYDE Attending Clinician Unavailable WALE CHERRY K.HNolan Attending Clinician Unavailable CHER PYLE Attending Clinician Unavailable Cher Pyle MD Attending Clinician Wale Cherry MD K.HNolan Attending Clinician Robby Rogers Attending Clinician [facility] Attending Clinician Unavailable 2, [facility] Attending Clinician Unavailable BRISEIDA RUSSELL Attending Clinician Unavailable SHAY GOLDBERG Attending Clinician Unavailable SHAY GOLDBERG Attending Clinician Unavailable Shay Goldberg MD Attending Clinician Doctor Unassigned, [place] Attending Clinician Unavailable Jj Hatfield MD Attending Clinician JJ HATFIELD Attending Clinician Unavailable Canelo Goode MD, Chilvana Attending Clinician ([facility]), Ang-Db Emg/Ncv Testing Attending Clinician Unavailab TIMO Wei Attending Clinician Unavailable FAVIAN SIERRA Attending Clinician Unavailable Only, Adc Test Attending Clinician Unavailable NORMAN PORRAS Attending Clinician Unavailable Yamile FLORENCE, [facility] Attending Clinician MARCOS ECKERT Admitting Clinician Unavailable JJ HATFIELD Admitting Clinician Unavailable SHAY GOLDBERG Admitting Clinician Unavailable Payers Payer Name Policy Type Policy Number Effective Date Expiration Date S adán MEDICARE PART A \T\ [id number] 2017 B 00:00:00 [facility] [facility] [id number] 2019 00:00:00 MEDICAID OF [place] [id number] 2019 00:00:00 Problems Condition Condition Condition Status Onset Resolution Last Treating Co mments Source Name Details Category Date Date Treatment Clinician Date S/P CABG x S/P CABG x Disease Active U nivers 2 2 - ity of 00:00: [place] 00 Medical Branch Obesity Obesity Disease Active Univers (BMI (BMI 4- ity of 30-39.9) 30-39.9) 00:00: [place] 00 Medical Branch Coronary Coronary Disease Active Overview: Un chris artery artery 11-13 Formattin ity of disease disease 00:00: g of this [place] involving involving 00 note Medi [place] be Branch coronary coronary different artery of artery of from the [place] original. 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) (HIV) Branch disease disease CHF CHF Disease Active Univers (congestiv (congestiv it y of e heart e heart [place] failure) failure) Medica l Branch Hyperlipid Hyperlipid Disease Active U nivers emia emia ity of [facility] [place] [facility] Allergies, Adverse Reactions, Alerts Allergy Allergy Status Severity Reaction(s) Onset Inactive Treating Comm ents Source Name Type Date Date Clinician NO KNOWN Drug Active Univers ALLERGIE Class ity of S [facility] [place] [facility] Social History Social Habit Start Date Stop Date Quantity Comments Source History of 1983-08-14 Cigarette Smoker Universi ty of tobacco use 00:00:00 [facility] [place] [facility] Exposure to 2022-05-31 2022-06-[address] [facility] SARS-CoV-2 00:00:00 09:30:00 [facility] (event) Branch Alcohol intake 2022-06-10 2022-06-10 .29 /d University of 00:00:00 00:00:00 [facility] [place] [facility] Cigarettes smoked 2022-02-28 2022-02-28 Univers ity of current (pack per 00:00:00 00:00:00 [facility]) - Reported Branch Cigarette 2022-02-28 2022-02-28 University of pack-years 00:00:00 00:00:00 [facility] [place] [facility] Tobacco use and 2022-02-28 2022-02-28 Smokeless tobacco Un iversity of exposure 00:00:00 00:00:00 non-user [place] [facility] History [facility] 2019-05-10 2019-05-10 2 University o f Alcohol Frequency 00:00:00 00:00:00 [facility] edical Branch History [facility] 2019-05-10 2019-05-10 1 University o f Alcohol Std 00:00:00 00:00:00 [place] Medical Drinks Branch History [facility] 2019-05-10 2019-05-10 2 University o f Alcohol Binge 00:00:00 00:00:00 [facility] al Branch Alcohol Comment 2019-05-10 2019-05-10 Occasionally Univers ity of 00:00:00 00:00:00 [facility] [place] [facility] Sex [birth year] Universit y of 00:00:00 00:00:00 [facility] [place] [facility] Smoking Status Start Date Stop Date Source Smokes tobacco daily 2022-02-28 00:00:00 [facility] ity of [facility] [place] [facility] Medications Ordered Filled Start Stop Current Ordering Indication Dosage Frequency Signature Comments Components Source Medication Medication Date Date Medication? Clinician (SIG) Name Name ALBUTEROL 2021-08 No HFA 90 MCG -29 INHALER 00:00: 00 TAKE 1 2021-08 No 1 TABLET BY 1-29 MOUTH TWICE 00:00: A DAY 00 TAKE 2 2021-08 No TABLETS BY 1-28 MOUTH TWICE 00:00: A DAY 00 FLUTICASONE 2021-08 No PROP 50 MCG 1-14 SPRAY 00:00: 00 FLUTICASONE 2021-08 No PROP 50 MCG 1-14 SPRAY 00:00: 00 CYCLOBENZAP 2021-08 No 10 RINE 10 MG 1-05 TABLET 00:00: 00 INJECT 2021-08 No UNITS BELOW 1-05 THE SKIN 00:00: TWICE A DAY 00 50 UNITS TWICE A DAY CYCLOBENZAP 2021-08 No 10 RINE 10 MG 1-05 TABLET 00:00: 00 INJECT 2021-08 No 100 UNITS BELOW 1-05 THE SKIN 00:00: TWICE A DAY 00 50 UNITS TWICE A DAY CYCLOBENZAP 2021-08 No 10 RINE 10 MG 1-05 TABLET 00:00: 00 INJECT 2021-08 No UNITS BELOW 1-05 THE SKIN 00:00: TWICE A DAY 00 50 UNITS TWICE A DAY LEVEMIR 2021-08 No FLEXTOUCH 1-04 100 UNIT/ML 00:00: 00 LEVEMIR 2021-08 No FLEXTOUCH 1-04 100 UNIT/ML 00:00: 00 LEVEMIR 2021-08 No FLEXTOUCH 1-04 100 UNIT/ML 00:00: 00 TIVICAY 50 2021-08 Yes [id number] 1 po once Univers mg tablet 0-28 daily ity of 00:00: [address] DESCY 2021-08 Yes [id number] 1 po once U nivers tablet 0-28 daily ity of 00:00: [address] [facility] 50 2021-08 Yes [id number] 1 po once Univers mg tablet 0-28 daily ity of 00:00: [address] 2021-08 Yes [id number] 1 po once U nivers tablet 0-28 daily ity of 00:00: [address] [facility] 50 2021-08 Yes [id number] 1 po once Univers mg tablet 0-28 daily ity of 00:00: [address] DESCY 2021-08 Yes [id number] 1 po once U nivers tablet 0-28 daily ity of 00:00: [address] PANTOPRAZOL 2021-[address] 40 0-24 MG TAB 00:00: 00 PANTOPRAZOL 2021-[address] 40 0-24 MG TAB 00:00: 00 PANTOPRAZOL 2021-[address] 40 0-24 MG TAB 00:00: 00 icosapent 2021-08 Yes [id number] 2g Take 2 Un chris ethyL 0-24 capsules ity of (VASCEPA) 1 00:00: by mouth [place] gram 00 in the Medical capsule morning Branch and 2 capsules in the evening. icosapent 2021-08 Yes [id number] 2g Take 2 Un chris ethyL 0-24 capsules ity of (VASCEPA) 1 00:00: by mouth [place] gram 00 in the Medical capsule morning Branch and 2 capsules in the evening. icosapent 2021-08 Yes [id number] 2g Take 2 Un ch[place] ethyL 0-24 capsules ity of (VASCEPA) 1 00:00: by mouth [place] gram 00 in the Medical capsule morning Branch and 2 capsules in the evening. icosapent 2021-08 Yes [id number] 2g Take 2 Un [place] ethyL 0-24 capsules ity of (VASCEPA) 1 00:00: by mouth [place] gram 00 in the Medical capsule morning Branch and 2 capsules in the evening. icosapent 2021-08 Yes [id number] 2g Take 2 Un ch[place] ethyL 0-24 capsules ity of (VASCEPA) 1 00:00: by mouth [place] gram 00 in the Medical capsule morning Branch and 2 capsules in the evening. spironolact Yes [id number] 25mg Take 1 Univers one 25 mg 9-29 tablet by ity o f tablet 00:00: mouth in [place] the Medical morning. Branch spironolact 0 Yes [id number] 25mg Take 1 Univers one 25 mg 9-29 tablet by ity o f tablet 00:00: mouth in [place] the morning. Branch spironolact 0 Yes [id number] 25mg Take 1 Univers one 25 mg 9-29 tablet by ity o f tablet 00:00: mouth in [place] the Medical morning. Branch spironolact 2021-0 Yes [id number] 25mg Take 1 Univers one 25 mg 9-29 tablet by ity o f tablet 00:00: mouth in [place] the Medical morning. Branch spironolact 2021-0 Yes [id number] 25mg Take 1 Univers one 25 mg 9-29 tablet by ity o f tablet 00:00: mouth in [place] the Medical morning. Branch spironolact 2021-0 Yes [id number] 25mg Take 1 Univers one 25 mg 9-29 tablet by ity o f tablet 00:00: mouth in [place] the Medical morning. Branch spironolact 2021-0 Yes [id number] 25mg Take 1 Univers one 25 mg 9-29 tablet by ity o f tablet 00:00: mouth in [place] 00 the Medical morning. Branch spironolact 2021-0 Yes [id number] 25mg Take 1 Univers one 25 mg 9-29 tablet by ity o f tablet 00:00: mouth in [place] 00 the Medical morning. Branch spironolact 2021-0 Yes [id number] 25mg Take 1 Univers one 25 mg 9-29 tablet by ity o f tablet 00:00: mouth in [place] 00 the Medical morning. Branch spironolact 2021-0 Yes [id number] 25mg Take 1 Univers one 25 mg 9-29 tablet by ity o f tablet 00:00: mouth in [place] 00 the Medical morning. Branch spironolact 2021-0 Yes [id number] 25mg Take 1 Univers one 25 mg 9-29 tablet by ity o f tablet 00:00: mouth in [place] 00 the Medical morning. Branch spironolact 2021-0 Yes [id number] 25mg Take 1 Univers one 25 mg 9-29 tablet by ity o f tablet 00:00: mouth in [place] 00 the Medical morning. Branch spironolact 2021-0 Yes [id number] 25mg Take 1 Univers one 25 mg 9-29 tablet by ity o f tablet 00:00: mouth in [place] the Medical morning. Branch PROMETHAZIN 2021-0 No E 25 MG 8-24 TABLET 00:00: 00 PROMETHAZIN 2021-0 No E 25 MG 8-24 TABLET 00:00: 00 PROMETHAZIN 2021-0 No E 25 MG 8-24 TABLET 00:00: 00 metoprolol 2021-0 Yes [id number] TAKE 1 Univers succinate 8-12 TABLET BY ity o f XL 50 mg 24 00:00: MOUTH [place] hr tablet 00 TWICE A Medical DAY (NEED Branch APPOINTMEN T FOR FURTHER REFILLS) metoprolol 2021-0 Yes [id number] TAKE 1 Univers succinate 8-12 TABLET BY ity o f XL 50 mg 24 00:00: MOUTH [place] hr tablet 00 TWICE A Medical DAY (NEED Branch APPOINTMEN T FOR FURTHER REFILLS) metoprolol 2021-0 Yes [id number] TAKE 1 Univers succinate 8-12 TABLET BY ity o f XL 50 mg 24 00:00: MOUTH [place] hr tablet 00 TWICE A Medical DAY (NEED Branch APPOINTMEN T FOR FURTHER REFILLS) metoprolol 2021-0 Yes [id number] TAKE 1 Univers succinate 8-12 TABLET BY ity o f XL 50 mg 24 00:00: MOUTH [place] hr tablet 00 TWICE A Medical DAY (NEED Branch APPOINTMEN T FOR FURTHER REFILLS) metoprolol Yes [id number] TAKE 1 Univers succinate 8-12 TABLET BY ity o f XL 50 mg 24 00:00: MOUTH [place] hr tablet 00 TWICE A Medical DAY (NEED Branch APPOINTMEN T FOR FURTHER REFILLS) metoprolol Yes [id number] TAKE 1 Univers succinate 8-12 TABLET BY ity o f XL 50 mg 24 00:00: MOUTH [place] hr tablet 00 TWICE A Medical DAY (NEED Branch APPOINTMEN T FOR FURTHER REFILLS) metoprolol Yes [id number] TAKE 1 Univers succinate 8-12 TABLET BY ity o f XL 50 mg 24 00:00: MOUTH [place] hr tablet 00 TWICE A Medical DAY (NEED Branch APPOINTMEN T FOR FURTHER REFILLS) metoprolol Yes [id number] TAKE 1 Univers succinate 8-12 TABLET BY ity o f XL 50 mg 24 00:00: MOUTH [place] hr tablet 00 TWICE A Medical DAY (NEED Branch APPOINTMEN T FOR FURTHER REFILLS) metoprolol Yes [id number] TAKE 1 Univers succinate 8-12 TABLET BY ity o f XL 50 mg 24 00:00: MOUTH [place] hr tablet 00 TWICE A Medical DAY (NEED Branch APPOINTMEN T FOR FURTHER REFILLS) metoprolol Yes [id number] TAKE 1 Univers succinate 8-12 TABLET BY ity o f XL 50 mg 24 00:00: MOUTH [place] hr tablet 00 TWICE A Medical DAY (NEED Branch APPOINTMEN T FOR FURTHER REFILLS) metoprolol Yes [id number] TAKE 1 Univers succinate 8-12 TABLET BY ity o f XL 50 mg 24 00:00: MOUTH [place] hr tablet 00 TWICE A Medical DAY (NEED Branch APPOINTMEN T FOR FURTHER REFILLS) metoprolol Yes [id number] TAKE 1 Univers succinate 8-12 TABLET BY ity o f XL 50 mg 24 00:00: MOUTH [place] hr tablet 00 TWICE A Medical DAY (NEED Branch APPOINTMEN T FOR FURTHER REFILLS) metoprolol Yes [id number] TAKE 1 Univers succinate 8-12 TABLET BY ity o f XL 50 mg 24 00:00: MOUTH [place] hr tablet 00 TWICE A Medical DAY (NEED Branch APPOINTMEN T FOR FURTHER REFILLS) metoprolol 0 Yes [id number] TAKE 1 Univers succinate 8-12 TABLET BY ity o f XL 50 mg 24 00:00: MOUTH [place] hr tablet 00 TWICE A Medical DAY (NEED Branch APPOINTMEN T FOR FURTHER REFILLS) metoprolol 2021-0 Yes [id number] TAKE 1 Univers succinate 8-12 TABLET BY ity o f XL 50 mg 24 00:00: MOUTH [place] hr tablet 00 TWICE A Medical DAY (NEED Branch APPOINTMEN T FOR FURTHER REFILLS) metoprolol Yes [id number] TAKE 1 Univers succinate 8-12 TABLET BY ity o f XL 50 mg 24 00:00: MOUTH [place] hr tablet 00 TWICE A Medical DAY (NEED Branch APPOINTMEN T FOR FURTHER REFILLS) metoprolol Yes [id number] TAKE BY Univers succinate 7-15 MOUTH 1 ity of XL 50 mg 24 00:00: TABLET 2 [place] hr tablet 00 TIMES A Medical DAY (PLEAS Branch NOTE TABLET DOSE CHANGE) NEED TO CALL OFFICE FOR REFIL metoprolol 2021- No [id number] TAKE BY Univers succinate 7-15 08-12 MOUTH 1 ity of XL 50 mg 24 00:00: 00:00 TABLET 2 [place] hr tablet 00 :00 TIMES A Medical DAY (PLEAS Branch NOTE TABLET DOSE CHANGE) NEED TO CALL OFFICE FOR REFIL aspirin 81 0 No 1mg mg 5-12 tablet,agus 00:00: yed release 00 Flonase 2021-0 No 2mcg/ac Allergy 5-12 tuation Relief 50 00:00: mcg/actuati 00 on nasal spray,suspe nsion aspirin 81 2021-0 No 1mg mg 5-12 tablet,agus 00:00: yed release 00 Flonase 2021-0 No 2mcg/ac Allergy 5-12 tuation Relief 50 00:00: mcg/actuati 00 on nasal spray,suspe nsion aspirin 81 2021-0 No 1mg mg 5-12 tablet,agsu 00:00: yed release 00 Flonase 2021-0 No 2mcg/ac Allergy 5-12 tuation Relief 50 00:00: mcg/actuati 00 on nasal spray,suspe nsion Dose 2021-0 No Unknown 5-10 00:00: 00 Levemir 2022-0 No (3 mL) FlexTouch 5-10 U-100 00:00: Insulin 100 00 unit/mL (3 mL) subcutaneou s pen Descovy 200 2-0 No 1mg mg-25 mg 5-10 tablet 00:00: 00 Dose 2022-0 No Unknown 5-10 00:00: 00 furosemide 2022-0 No 1mg 40 mg 5-10 tablet 00:00: 00 lisinopril 2022-0 No 1mg 5 mg tablet 5-10 00:00: 00 Protonix 40 2-0 No 1mg mg 5-10 tablet,agus 00:00: yed release 00 Januvia 100 2-0 No 1mg mg tablet 5-10 00:00: 00 spironolact 2-0 No 5mg one 25 mg 5-10 tablet 00:00: 00 gabapentin 2022-0 No 1mg 600 mg 5-10 tablet 00:00: 00 glimepiride 2-0 No 1mg 1 mg tablet 5-10 00:00: 00 metformin 2-0 No 1mg 1,000 mg 5-10 tablet 00:00: 00 metoprolol 2-0 No mg succinate 5-10 ER 25 mg 00:00: tablet,exte 00 nded release 24 hr Tivicay 50 2-0 No 1mg mg tablet 5-10 00:00: 00 Dose 2022-0 No Unknown 5-10 00:00: 00 cyclobenzap 2-0 No 1mg rine 10 mg 5-10 tablet 00:00: 00 promethazin 2-0 No 1mg e 25 mg 5-10 tablet 00:00: 00 potassium 2022-0 No 1mEq chloride ER 5-10 10 mEq 00:00: tablet,exte 00 nded release ferrous 2-0 No 1(65 mg sulfate 325 5-10 iron) mg (65 mg 00:00: iron) 00 tablet,agus yed release Dose 2-0 No Unknown 5-10 00:00: 00 Levemir 2022-0 No (3 mL) FlexTouch 5-10 U-100 00:00: Insulin 100 00 unit/mL (3 mL) subcutaneou s pen [place] 200 2021-0 No 1mg mg-25 mg 5-10 tablet 00:00: 00 Jardiance 2022-0 No 1mg 25 mg 5-10 tablet 00:00: 00 furosemide 2022-0 No 1mg 40 mg 5-10 tablet 00:00: 00 lisinopril 2022-0 No 1mg 5 mg tablet 5-10 00:00: 00 Protonix 40 2-0 No 1mg mg 5-10 tablet,agus 00:00: yed release 00 Januvia 100 2-0 No 1mg mg tablet 5-10 00:00: 00 spironolact 2022-0 No 5mg one 25 mg 5-10 tablet 00:00: 00 gabapentin 2022-0 No 1mg 600 mg 5-10 tablet 00:00: 00 glimepiride 2022-0 No 1mg 1 mg tablet 5-10 00:00: 00 metformin 2022-0 No 1mg 1,000 mg 5-10 tablet 00:00: 00 metoprolol 2-0 No mg succinate 5-10 ER 25 mg 00:00: tablet,exte 00 nded release 24 hr Tivicay 50 2-0 No 1mg mg tablet 5-10 00:00: 00 Dose 2022-0 No Unknown 5-10 00:00: 00 cyclobenzap 2-0 No 1mg rine 10 mg 5-10 tablet 00:00: 00 promethazin 2-0 No 1mg e 25 mg 5-10 tablet 00:00: 00 potassium 2-0 No 1mEq chloride ER 5-10 10 mEq 00:00: tablet,exte 00 nded release ferrous 2-0 No 1(65 mg sulfate 325 5-10 iron) mg (65 mg 00:00: iron) 00 tablet,agus yed release Dose 2-0 No Unknown 5-10 00:00: 00 Levemir 2022-0 No (3 mL) FlexTouch 5-10 U-100 00:00: Insulin 100 00 unit/mL (3 mL) subcutaneou s pen [place] 200 2-0 No 1mg mg-25 mg 5-10 tablet 00:00: 00 Dose 2022-0 No Unknown 5-10 00:00: 00 furosemide 2022-0 No 1mg 40 mg 5-10 tablet 00:00: 00 lisinopril 2022-0 No 1mg 5 mg tablet 5-10 00:00: 00 Protonix 40 2-0 No 1mg mg 5-10 tablet,agus 00:00: yed release 00 Januvia 100 2-0 No 1mg mg tablet 5-10 00:00: 00 spironolact 2022-0 No 5mg one 25 mg 5-10 tablet 00:00: 00 gabapentin 2022-0 No 1mg 600 mg 5-10 tablet 00:00: 00 glimepiride 2022-0 No 1mg 1 mg tablet 5-10 00:00: 00 metformin 2022-0 No 1mg 1,000 mg 5-10 tablet 00:00: 00 metoprolol 2-0 No mg succinate 5-10 ER 25 mg 00:00: tablet,exte 00 nded release 24 hr Tivicay 50 2-0 No 1mg mg tablet 5-10 00:00: 00 Dose 2-0 No Unknown 5-10 00:00: 00 cyclobenzap 2-0 No 1mg rine 10 mg 5-10 tablet 00:00: 00 promethazin 2-0 No 1mg e 25 mg 5-10 tablet 00:00: 00 potassium 2-0 No 1mEq chloride ER 5-10 10 mEq 00:00: tablet,exte 00 nded release ferrous 2-0 No 1(65 mg sulfate 325 5-10 iron) mg (65 mg 00:00: iron) 00 tablet,agus yed release Dose 2-0 No Unknown 5-04 00:00: 00 Dose 2022-0 No Unknown 5-04 00:00: 00 Dose 2022-0 No Unknown 5-04 00:00: 00 Dose 2022-0 No Unknown 5-04 00:00: 00 Dose 2022-0 No Unknown 5-04 00:00: 00 Dose 2022-0 No Unknown 5-04 00:00: 00 Dose 2022-0 No Unknown 5-04 00:00: 00 Dose 2022-0 No Unknown 5-04 00:00: 00 Dose 2022-0 No Unknown 5-04 00:00: 00 Dose 2022-0 No Unknown 5-04 00:00: 00 Dose 2022-0 No Unknown 5-04 00:00: 00 Dose 2022-0 No Unknown 5-04 00:00: 00 Dose 2022-0 No Unknown 5-04 00:00: 00 Dose 2022-0 No Unknown 5-04 00:00: 00 Dose 2022-0 No Unknown 5-04 00:00: 00 Dose 2022-0 No Unknown 5-04 00:00: 00 Dose 2022-0 No Unknown 5-04 00:00: 00 Dose 2022-0 No Unknown 5-04 00:00: 00 Dose 2022-0 No Unknown 5-04 00:00: 00 Dose 2022-0 No Unknown 5-04 00:00: 00 Dose 2022-0 No Unknown 5-04 00:00: 00 Dose 2022-0 No Unknown 5-04 00:00: 00 Dose 2022-0 No Unknown 5-04 00:00: 00 Dose 2022-0 No Unknown 5-04 00:00: 00 Dose 2022-0 No Unknown 4-29 00:00: 00 Dose 2022-0 No Unknown 4-29 00:00: 00 Dose 2022-0 No Unknown 4-29 00:00: 00 Dose 2022-0 No Unknown 4-29 00:00: 00 Dose 2022-0 No Unknown 4-29 00:00: 00 Dose 2022-0 No Unknown 4-29 00:00: 00 Dose 2022-0 No Unknown 4-29 00:00: 00 Dose 2022-0 No Unknown 4-29 00:00: 00 Dose 2022-0 No Unknown 4-29 00:00: 00 Dose 2022-0 No Unknown 4-29 00:00: 00 Dose 2022-0 No Unknown 4-29 00:00: 00 Dose 2022-0 No Unknown 4-29 00:00: 00 Dose 2022-0 No Unknown 4-27 00:00: 00 Dose 2022-0 No Unknown 4-27 00:00: 00 Dose 2022-0 No Unknown 4-27 00:00: 00 Dose 2022-0 No Unknown 4-27 00:00: 00 Dose 2022-0 No Unknown 4-27 00:00: 00 Dose 2022-0 No Unknown 4-27 00:00: 00 Dose 2022-0 No Unknown 4-27 00:00: 00 Dose 2022-0 No Unknown 4-27 00:00: 00 Dose 2022-0 No Unknown 4-27 00:00: 00 Dose 2022-0 No Unknown 4-27 00:00: 00 Dose 2022-0 No Unknown 4-27 00:00: 00 Dose 2022-0 No Unknown 4-27 00:00: 00 Dose 2022-0 No Unknown 4-27 00:00: 00 Dose 2022-0 No Unknown 4-27 00:00: 00 Dose 2022-0 No Unknown 4-27 00:00: 00 Dose 2022-0 No Unknown 4-27 00:00: 00 Dose 2022-0 No Unknown 4-27 00:00: 00 Dose 2022-0 No Unknown 4-27 00:00: 00 Dose 2022-0 No Unknown 4-27 00:00: 00 Dose 2022-0 No Unknown 4-27 00:00: 00 Dose 2022-0 No Unknown 4-27 00:00: 00 Dose 2022-0 No Unknown 4-27 00:00: 00 Dose 2022-0 No Unknown 4-27 00:00: 00 Dose 2022-0 No Unknown 4-27 00:00: 00 Dose 2022-0 No Unknown 4-19 00:00: 00 Dose 2022-0 No Unknown 4-19 00:00: 00 Dose 2022-0 No Unknown 4-19 00:00: 00 Dose 2022-0 No Unknown 4-19 00:00: 00 Dose 2022-0 No Unknown 4-19 00:00: 00 Dose 2022-0 No Unknown 4-19 00:00: 00 Dose 2022-0 No Unknown 4-19 00:00: 00 Dose 2022-0 No Unknown 4-19 00:00: 00 Dose 2022-0 No Unknown 4-19 00:00: 00 Dose 2022-0 No Unknown 4-19 00:00: 00 Dose 2022-0 No Unknown 4-19 00:00: 00 Dose 2022-0 No Unknown 4-19 00:00: 00 Dose 2022-0 No Unknown 4-19 00:00: 00 Dose 2022-0 No Unknown 4-19 00:00: 00 Dose 2022-0 No Unknown 4-19 00:00: 00 Dose 2022-0 No Unknown 4-19 00:00: 00 Dose 2022-0 No Unknown 4-19 00:00: 00 Dose 2022-0 No Unknown 4-19 00:00: 00 Dose 2022-0 No Unknown 4-19 00:00: 00 Dose 2022-0 No Unknown 4-19 00:00: 00 Dose 2022-0 No Unknown 4-19 00:00: 00 Dose 2022-0 No Unknown 4-19 00:00: 00 Dose 2022-0 No Unknown 4-19 00:00: 00 Dose 2022-0 No Unknown 4-19 00:00: 00 Dose 2022-0 No Unknown 4-19 00:00: 00 Dose 2022-0 No Unknown 4-19 00:00: 00 Dose 2022-0 No Unknown 4-19 00:00: 00 Dose 2022-0 No Unknown 4-19 00:00: 00 Dose 2-0 No Unknown 4-19 00:00: 00 Dose 2-0 No Unknown 4-19 00:00: 00 Dose 2-0 No Unknown 4-17 00:00: 00 Dose 2022-0 No Unknown 4-17 00:00: 00 Dose 2-0 No Unknown 4-17 00:00: 00 amoxicillin 2022-0 No 1mg 875 mg 4-16 tablet 00:00: 00 amoxicillin 2022-0 No 1mg 875 mg 4-16 tablet 00:00: 00 amoxicillin 2022-0 No 1mg 875 mg 4-16 tablet 00:00: 00 Dose 2-0 No Unknown 3-31 00:00: 00 Dose 2-0 No Unknown 3-31 00:00: 00 Dose 2022-0 No Unknown 3-31 00:00: 00 Dose 2-0 No Unknown 3-31 00:00: 00 Dose 2-0 No Unknown 3-31 00:00: 00 Dose 2022-0 No Unknown 3-31 00:00: 00 Dose 2-0 No Unknown 3-29 00:00: 00 Dose 2022-0 No Unknown 3-29 00:00: 00 Dose 2022-0 No Unknown 3-29 00:00: 00 Dose 2-0 No Unknown 3-29 00:00: 00 Dose 2022-0 No Unknown 3-29 00:00: 00 Dose 2022-0 No Unknown 3-29 00:00: 00 spironolact 2-0 Yes [id number] 25mg Take 1 Univers one 25 mg 3-09 tablet by ity o f tablet 00:00: mouth [place] 00 daily. Medical Branch spironolact 2021-0 Yes [id number] 25mg Take 1 Univers one 25 mg 3-09 tablet by ity o f tablet 00:00: mouth [place] 00 daily. [facility] Branch spironolact 2021-0 Yes [id number] 25mg Take 1 Univers one 25 mg 3-09 tablet by ity o f tablet 00:00: mouth 00 daily. [facility] Branch spironolact 2021-0 Yes [id number] 25mg Take 1 Univers one 25 mg 3-09 tablet by ity o f tablet 00:00: mouth 00 daily. [facility] Branch spironolact 2021-0 2- No [id number] 25mg Take 1 Univers one 25 mg 3-09 -29 tablet by ity of tablet 00:00: 00:00 mouth [place] 00 :00 daily. [facility] Dose 2-0 No Unknown 3-03 00:00: 00 Dose 2022-0 No Unknown 3-03 00:00: 00 Dose 2022-0 No Unknown 3-03 00:00: 00 Dose 2022-0 No Unknown 1-10 00:00: 00 Dose 2022-0 No Unknown 1-10 00:00: 00 Dose 2022-0 No Unknown 1-10 00:00: 00 Dose 2022-0 No Unknown 1-03 00:00: 00 Dose 2022-0 No Unknown 1-03 00:00: 00 Dose 2022-0 No Unknown 1-03 00:00: 00 Dose 2022-0 No Unknown 1-03 00:00: 00 Dose 2022-0 No Unknown 1-03 00:00: 00 Dose 2022-0 No Unknown 1-03 00:00: 00 Dose 2022-0 No Unknown 1-03 00:00: 00 Dose 2022-0 No Unknown 1-03 00:00: 00 Dose 2022-0 No Unknown 1-03 00:00: 00 Dose 2022-0 No Unknown 1-03 00:00: 00 Dose 2022-0 No Unknown 1-03 00:00: 00 Dose 2022-0 No Unknown 1-03 00:00: 00 Dose 2022-0 No Unknown 1-03 00:00: 00 Dose 2022-0 No Unknown 1-03 00:00: 00 Dose 2022-0 No Unknown 1-03 00:00: 00 Dose 2022-0 No Unknown 1-03 00:00: 00 Dose 2022-0 No Unknown 1-03 00:00: 00 Dose 2022-0 No Unknown 1-03 00:00: 00 Dose 2022-0 No Unknown 1-03 00:00: 00 Dose 2022-0 No Unknown 1-03 00:00: 00 Dose 2022-0 No Unknown 1-03 00:00: 00 Dose 2022-0 No Unknown 1-03 00:00: 00 Dose 2022-0 No Unknown 1-03 00:00: 00 Dose 2022-0 No Unknown 1-03 00:00: 00 Dose 2022-0 No Unknown 1-03 00:00: 00 Dose 2022-0 No Unknown 1-03 00:00: 00 Dose 2022-0 No Unknown 1-03 00:00: 00 Dose 2022-0 No Unknown 1-03 00:00: 00 Dose 2022-0 No Unknown 1-03 00:00: 00 Dose 2022-0 No Unknown 1-03 00:00: 00 Dose 2022-0 No Unknown 1-03 00:00: 00 Dose 2022-0 No Unknown 1-03 00:00: 00 Dose 2022-0 No Unknown 1-03 00:00: 00 Dose 2022-0 No Unknown 1-03 00:00: 00 Dose 2022-0 No Unknown 1-03 00:00: 00 Dose 2022-0 No Unknown 1-03 00:00: 00 Dose 2022-0 No Unknown 1-03 00:00: 00 Dose 2022-0 No Unknown 1-03 00:00: 00 Dose 2022-0 No Unknown 1-03 00:00: 00 Dose 2022-0 No Unknown 1-03 00:00: 00 Dose 2022-0 No Unknown 1-03 00:00: 00 Dose 2022-0 No Unknown 1-03 00:00: 00 Dose 2022-0 No Unknown 1-03 00:00: 00 Dose 2022-0 No Unknown 1-03 00:00: 00 Dose 2022-0 No Unknown 1-03 00:00: 00 Dose 2022-0 No Unknown 1-03 00:00: 00 Dose 2022-0 No Unknown 1-03 00:00: 00 Dose 2022-0 No Unknown 1-03 00:00: 00 Dose 2022-0 No Unknown 1-03 00:00: 00 Dose 2022-0 No Unknown 1-03 00:00: 00 Dose 2022-0 No Unknown 1-03 00:00: 00 Dose 2022-0 No Unknown 1-03 00:00: 00 Dose 2022-0 No Unknown 1-03 00:00: 00 Dose 2022-0 No Unknown 1-03 00:00: 00 ProAir HFA 2020-1 No 12mcg/a 90 1-16 ctuatio mcg/actuati 00:00: n on aerosol 00 inhaler Levemir 2020- No (3 mL) FlexTouch 1-16 U-100 00:00: Insulin 100 00 unit/mL (3 mL) subcutaneou s pen Descovy 200 2020-08 No 1mg mg-25 mg 1-16 tablet 00:00: 00 spironolact 2020-1 No 5mg one 25 mg 1-16 tablet 00:00: 00 Januvia 100 2020- No 1mg mg tablet -16 00:00: 00 furosemide 2020-1 No 1mg 40 mg 1-16 tablet 00:00: 00 Protonix 40 2020- No 1mg mg 1-16 tablet,agus 00:00: yed release 00 Jardiance 2020- No 1mg 25 mg 1-16 tablet 00:00: 00 lisinopril 2020-1 No 1mg 5 mg tablet -16 00:00: 00 metoprolol 2020-1 No mg succinate 1-16 ER 25 mg 00:00: tablet,exte 00 nded release 24 hr gabapentin 2020- No 1mg 600 mg 1-16 tablet 00:00: 00 glimepiride 2020-1 No 1mg 1 mg tablet -16 00:00: 00 metformin 2020-1 No 1mg 1,000 mg 1-16 tablet 00:00: 00 Tivicay 50 2020- No 1mg mg tablet -16 00:00: 00 rosuvastati 2020-1 No 1mg n 40 mg 1-16 tablet 00:00: 00 cyclobenzap 2020- No 1mg rine 10 mg 1-16 tablet 00:00: 00 mirtazapine 2020-1 No 1mg 30 mg 1-16 tablet 00:00: 00 promethazin 2020- No 1mg e 25 mg 1-16 tablet 00:00: 00 ferrous 2020-08 No 1(65 mg sulfate 325 1-16 iron) mg (65 mg 00:00: iron) 00 tablet,agus yed release ProAir HFA 2020-08 No 12mcg/a 90 1-16 ctuatio mcg/actuati 00:00: n on aerosol 00 inhaler Levemir 2020-08 No (3 mL) FlexTouch 1-16 U-100 00:00: Insulin 100 00 unit/mL (3 mL) subcutaneou s pen Descovy 200 2020-08 No 1mg mg-25 mg 1-16 tablet 00:00: 00 spironolact 2020-08 No 5mg one 25 mg 1-16 tablet 00:00: 00 Januvia 100 2020-08 No 1mg mg tablet 16 00:00: 00 furosemide 2020-08 No 1mg 40 mg 1-16 tablet 00:00: 00 Protonix 40 2020-08 No 1mg mg 1-16 tablet,agus 00:00: yed release 00 Jardiance 2020-08 No 1mg 25 mg 1-16 tablet 00:00: 00 lisinopril 2020-08 No 1mg 5 mg tablet 16 00:00: 00 metoprolol 2020-08 No mg succinate 1-16 ER 25 mg 00:00: tablet,exte 00 nded release 24 hr gabapentin 2020-08 No 1mg 600 mg 1-16 tablet 00:00: 00 glimepiride 2020-08 No 1mg 1 mg tablet 16 00:00: 00 metformin 2020- No 1mg 1,000 mg 1-16 tablet 00:00: 00 Tivicay 50 2020-08 No 1mg mg tablet 16 00:00: 00 rosuvastati 2020-08 No 1mg n 40 mg 1-16 tablet 00:00: 00 cyclobenzap 2020-08 No 1mg rine 10 mg 1-16 tablet 00:00: 00 mirtazapine 2020-08 No 1mg 30 mg 1-16 tablet 00:00: 00 promethazin 2020-08 No 1mg e 25 mg 1-16 tablet 00:00: 00 ferrous 2020- No 1(65 mg sulfate 325 -16 iron) mg (65 mg 00:00: iron) 00 tablet,agus yed release ProAir HFA 2020-08 No 12mcg/a 90 1-16 ctuatio mcg/actuati 00:00: n on aerosol 00 inhaler Levemir 2020-08 No (3 mL) FlexTouch 1-16 U-100 00:00: Insulin 100 00 unit/mL (3 mL) subcutaneou s pen Descovy 200 2020-08 No 1mg mg-25 mg 1-16 tablet 00:00: 00 spironolact 2020-08 No 5mg one 25 mg 1-16 tablet 00:00: 00 Januvia 100 2020-08 No 1mg mg tablet 16 00:00: 00 furosemide 2020-08 No 1mg 40 mg 1-16 tablet 00:00: 00 Protonix 40 2020-08 No 1mg mg 1-16 tablet,agus 00:00: yed release 00 Jardiance 2020-08 No 1mg 25 mg 1-16 tablet 00:00: 00 lisinopril 2020-08 No 1mg 5 mg tablet 16 00:00: 00 metoprolol 2020-08 No mg succinate 1-16 ER 25 mg 00:00: tablet,exte 00 nded release 24 hr gabapentin 2020-08 No 1mg 600 mg 1-16 tablet 00:00: 00 glimepiride 2020-08 No 1mg 1 mg tablet -16 00:00: 00 metformin 2020- No 1mg 1,000 mg 1-16 tablet 00:00: 00 Tivicay 50 2020-08 No 1mg mg tablet -16 00:00: 00 rosuvastati 2020-08 No 1mg n 40 mg 1-16 tablet 00:00: 00 cyclobenzap 2020-08 No 1mg rine 10 mg 1-16 tablet 00:00: 00 mirtazapine 2020-08 No 1mg 30 mg 1-16 tablet 00:00: 00 promethazin 2020-08 No 1mg e 25 mg 1-16 tablet 00:00: 00 ferrous 2020- No 1(65 mg sulfate 325 -16 iron) mg (65 mg 00:00: iron) 00 tablet,agus yed release Levemir 2020-08 No (3 mL) FlexTouch 1-03 U-100 00:00: Insulin 100 00 unit/mL (3 mL) subcutaneou s pen Levemir 2020-1 No (3 mL) FlexTouch 1-03 U-100 00:00: Insulin 100 00 unit/mL (3 mL) subcutaneou s pen Levemir 2020-1 No (3 mL) FlexTouch 1-03 U-100 00:00: Insulin 100 00 unit/mL (3 mL) subcutaneou s pen Descovy 200 1-0 No 1mg mg-25 mg 9-30 tablet 00:00: 00 Tivicay 50 1-0 No 1mg mg tablet 05-13 00:00: 00 ferrous 1-0 No 1(65 mg sulfate 325 9-30 iron) mg (65 mg 00:00: iron) 00 tablet,agus yed release Descovy 200 2020-0 No 1mg mg-25 mg 9-30 tablet 00:00: 00 Tivicay 50 1-0 No 1mg mg tablet 05-13 00:00: 00 ferrous 1-0 No 1(65 mg sulfate 325 9-30 iron) mg (65 mg 00:00: iron) 00 tablet,agus yed release Descovy 200 2020-0 No 1mg mg-25 mg 9-30 tablet 00:00: 00 Tivicay 50 1-0 No 1mg mg tablet 05-13 00:00: 00 ferrous 2021-0 No 1(65 mg sulfate 325 9-30 iron) mg (65 mg 00:00: iron) 00 tablet,agus yed release ferrous 1-0 No 1(65 mg sulfate 325 9-24 iron) mg (65 mg 00:00: iron) 00 tablet,agus yed release ferrous 2021-0 No 1(65 mg sulfate 325 9-24 iron) mg (65 mg 00:00: iron) 00 tablet,agus yed release ferrous 2021-0 No 1(65 mg sulfate 325 9-24 iron) mg (65 mg 00:00: iron) 00 tablet,agus yed release trazodone 2021-0 No 12mg 100 mg 8-26 tablet 00:00: 00 trazodone 2021-0 No 12mg 100 mg 8-26 tablet 00:00: 00 trazodone 2021-0 No 12mg 100 mg 8-26 tablet 00:00: 00 spironolact 2021-0 No 5mg one 25 mg 7-29 tablet 00:00: 00 metoprolol 2021-0 No mg succinate 7-29 ER 25 mg 00:00: tablet,exte 00 nded release 24 hr spironolact 2021-0 No 5mg one 25 mg 7-29 tablet 00:00: 00 metoprolol 2021-0 No mg succinate 7-29 ER 25 mg 00:00: tablet,exte 00 nded release 24 hr spironolact 2021-0 No 5mg one 25 mg 7-29 tablet 00:00: 00 metoprolol 2021-0 No mg succinate 7-29 ER 25 mg 00:00: tablet,exte 00 nded release 24 hr Dose 1-0 No Unknown 7-21 00:00: 00 promethazin 2021-0 No 1mg e 25 mg 7-21 tablet 00:00: 00 Dose 2021-0 No Unknown 7-21 00:00: 00 promethazin 2021-0 No 1mg e 25 mg 7-21 tablet 00:00: 00 Dose 2021-0 No Unknown 7-21 00:00: 00 promethazin 2021-0 No 1mg e 25 mg 7-21 tablet 00:00: 00 TIVICAY 50 2020-0 Yes [facility] mg tablet 7-12 ity of 00:00: [address] DESCOVY 2020-0 Yes Univers tablet 7-12 ity of 00:00: [address] [facility] 50 2020-0 Yes Univers mg tablet 7-12 ity of 00:00: [place] [facility] DESCOVY 1-0 Yes Univers tablet 7-12 ity of 00:00: [address] TIVICAY 50 1-0 Yes Univers mg tablet 7-12 ity of 00:00: [address] DESCOVY 1-0 Yes Univers tablet 7-12 ity of 00:00: [address] TIVICAY 50 2020-0 Yes Univers mg tablet 7-12 ity of 00:00: [address] DESCOVY 1-0 Yes Univers tablet 7-12 ity of 00:00: [address] TIVIC 50 2020-0 Yes Univers mg tablet 7-12 ity of 00:00: [place] [facility] DESCOVY 2020-0 Yes Univers tablet 7-12 ity of 00:00: [place] [facility] TIVICAY 50 2020-0 Yes Univers mg tablet 7-12 ity of 00:00: [place] 00 [facility] DESCOVY 2020-0 Yes Univers tablet 7-12 ity of 00:00: [place] 00 [facility] TIVICAY 50 2020-0 Yes Univers mg tablet 7-12 ity of 00:00: [place] [facility] DESCOVY 2020-0 Yes Univers tablet 7-12 ity of 00:00: [place] [facility] TIVICAY 50 2020-0 Yes Univers mg tablet 7-12 ity of 00:00: [place] [facility] DESCOVY 2020-0 Yes Univers tablet 7-12 ity of 00:00: [place] [facility] TIVICAY 50 2020-0 Yes Univers mg tablet 7-12 ity of 00:00: [place] [facility] DESCOVY 2020-0 Yes Univers tablet 7-12 ity of 00:00: [place] [facility] TIVICAY 50 2020-0 Yes Univers mg tablet 7-12 ity of 00:00: [place] [address] [facility] Branch DESCOVY 2020-0 Yes Univers tablet 7-12 ity of 00:00: [place] 00 [facility] TIVICAY 50 2020-0 Yes Univers mg tablet 7-12 ity of 00:00: [place] 00 [facility] DESCOVY 2020-0 Yes Univers tablet 7-12 ity of 00:00: [place] 00 [facility] TIVICAY 50 2020-0 Yes Univers mg tablet 7-12 ity of 00:00: [place] 00 [facility] DESCOVY 2020-0 Yes Univers tablet 7-12 ity of 00:00: [place] 00 [facility] TIVICAY 50 2020-0 Yes Univers mg tablet 7-12 ity of 00:00: [place] 00 [facility] DESCOVY 2020-0 Yes Univers tablet 7-12 ity of 00:00: [place] 00 [facility] TIVICAY 50 2020-0 Yes Univers mg tablet 7-12 ity of 00:00: [place] [address] [facility] Branch DESCOVY 2020-0 Yes Univers tablet 7-12 ity of 00:00: [place] 00 [facility] LEVEMIR 2021-0 Yes Univers FLEXTOUCH 7-08 ity of U-100 00:00: [place] INSULN 100 00 Medical unit/mL (3 Branch mL) injection LEVEMIR 2021-0 Yes Univers FLEXTOUCH 7-08 ity of U-100 [...] Medical unit/mL (3 Branch mL) injection LEVEMIR 2021-0 Yes Univers FLEXTOUCH 7-08 ity of U-100 00:00: [place] INSULN 100 00 Medical unit/mL (3 Branch mL) injection LEVEMIR 2020-0 Yes Univers FLEXTOUCH 7-08 ity of U-100 00:00: [place] INSULN 100 00 Medical unit/mL (3 Branch mL) injection LEVEMIR 1-0 Yes Univers FLEXTOUCH 7-08 ity of U-100 00:00: [place] INSULN 100 00 Medical unit/mL (3 Branch mL) injection LEVEMIR 2021-0 Yes Univers FLEXTOUCH 7-08 ity of U-100 00:00: [place] INSULN 100 00 Medical unit/mL (3 Branch mL) injection LEVEMIR 2021-0 Yes Univers FLEXTOUCH 7-08 ity of U-100 [...] Univers FLEXTOUCH 7-08 ity of U-100 00:00: [place] INSULN 100 00 Medical unit/mL (3 Branch mL) injection LEVEMIR 2020-0 Yes Univers FLEXTOUCH 7-08 ity of U-100 00:00: [place] INSULN 100 00 Medical unit/mL (3 Branch mL) injection metoprolol 0 No mg succinate 6-28 ER 25 mg 00:00: tablet,exte 00 nded release 24 hr metoprolol 0 No mg succinate 6-28 ER 25 mg 00:00: tablet,exte 00 nded release 24 hr metoprolol 0 No mg succinate 6-28 ER 25 mg 00:00: tablet,exte 00 nded release 24 hr ferrous 0 No 1(65 mg sulfate 325 6-26 iron) mg (65 mg 00:00: iron) 00 tablet,agus yed release ferrous No 1(65 mg sulfate 325 6-26 iron) mg (65 mg 00:00: iron) 00 tablet,agus yed release ferrous 0 No 1(65 mg sulfate 325 6-26 iron) mg (65 mg 00:00: iron) 00 tablet,agus yed release gabapentin Yes Univers 600 mg 6-24 ity of tablet 00:00: [place] [facility] JARDIANCE 0 Yes Univers 25 mg Tab 6-24 ity of 00:00: [place] [facility] glimepiride 0 Yes Univer s 1 mg tablet 6-24 ity of 00:00: [address] Branch metFORMIN 2020-0 Yes Univers 1,000 mg 6-24 ity of tablet 00:00: [address] Branch rosuvastati 2020-0 Yes 40mg Take 40 mg Univers n 40 mg 6-24 by mouth ity of tablet 00:00: at [place] [address] bedtime. Medical Branch JANUVIA 100 2020-0 Yes Univer s mg tablet 6-24 ity of 00:00: [place] [facility] furosemide 2020-0 Yes 40mg Take 40 mg U nivers 40 mg 6-24 by mouth ity of tablet 00:00: daily. [place] [facility] gabapentin 2020-0 Yes Univers 600 mg 6-24 ity of tablet 00:00: [place] [facility] JARDIANCE 2020-0 Yes Univers 25 mg Tab 6-24 ity of 00:00: [place] [facility] glimepiride 2020-0 Yes Univer s 1 mg tablet 6-24 ity of 00:00: [place] [address] [facility] Branch metFORMIN 2020-0 Yes Univers 1,000 mg 6-24 ity of tablet 00:00: [place] [address] [facility] Branch rosuvastati 2020-0 Yes 40mg Take 40 mg Univers n 40 mg 6-24 by mouth ity of tablet 00:00: at [place] [address] bedtime. Medical Branch JANIA 100 2020-0 Yes Univer s mg tablet 6-24 ity of 00:00: [place] [facility] furosemide 2020-0 Yes 40mg Take 40 mg U nivers 40 mg 6-24 by mouth ity of tablet 00:00: daily. [place] [facility] gabapentin 2020-0 Yes Univers 600 mg 6-24 ity of tablet 00:00: [place] [facility] JARDIANCE 2020-0 Yes Univers 25 mg Tab 6-24 ity of 00:00: [place] [facility] glimepiride 2020-0 Yes Univer s 1 mg tablet 6-24 ity of 00:00: [place] [facility] metFORMIN 1-0 Yes Univers 1,000 mg 6-24 ity of tablet 00:00: [place] [address] [facility] Branch rosuvastati 2020-0 Yes 40mg Take 40 mg Univers n 40 mg 6-24 by mouth ity of tablet 00:00: at [place] [address] bedtime. Medical Branch JANIA 100 2020-0 Yes Univer s mg tablet 6-24 ity of 00:00: [place] [address] [facility] Branch furosemide 1-0 Yes 40mg Take 40 mg U nivers 40 mg 6-24 by mouth ity of tablet 00:00: daily. [place] [address] [facility] Branch gabapentin 2020-0 Yes Univers 600 mg 6-24 ity of tablet 00:00: [place] [facility] JARDIANCE 2020-0 Yes Univers 25 mg Tab 6-24 ity of 00:00: [place] [facility] glimepiride 2020-0 Yes Univer s 1 mg tablet 6-24 ity of 00:00: [place] [facility] metFORMIN 2020-0 Yes Univers 1,000 mg 6-24 ity of tablet 00:00: [place] [facility] rosuvastati 2020-0 Yes 40mg Take 40 mg Univers n 40 mg 6-24 by mouth ity of tablet 00:00: at [place] [address] bedtime. Medical Branch JANUVIA 100 2020-0 Yes Univer s mg tablet 6-24 ity of 00:00: [place] [facility] furosemide 2020-0 Yes 40mg Take 40 mg U nivers 40 mg 6-24 by mouth ity of tablet 00:00: daily. [place] [facility] gabapentin 2020-0 Yes Univers 600 mg 6-24 ity of tablet 00:00: [place] [facility] JARDIANCE 2020-0 Yes Univers 25 mg Tab 6-24 ity of 00:00: [place] [facility] glimepiride 2020-0 Yes Univer s 1 mg tablet 6-24 ity of 00:00: [place] [facility] metFORMIN 2020-0 Yes Univers 1,000 mg 6-24 ity of tablet 00:00: [place] [facility] rosuvastati 2020-0 Yes 40mg Take 40 mg Univers n 40 mg 6-24 by mouth ity of tablet 00:00: at [place] [address] bedtime. Medical Branch JANUVIA 100 2020-0 Yes Univer s mg tablet 6-24 ity of 00:00: [place] [facility] furosemide 2020-0 Yes 40mg Take 40 mg U nivers 40 mg 6-24 by mouth ity of tablet 00:00: daily. [place] [facility] gabapentin 2020-0 Yes Univers 600 mg 6-24 ity of tablet 00:00: [place] [facility] JARDIANCE 2020-0 Yes Univers 25 mg Tab 6-24 ity of 00:00: [place] [facility] glimepiride 2020-0 Yes Univer s 1 mg tablet 6-24 ity of 00:00: [place] [facility] metFORMIN 2020-0 Yes Univers 1,000 mg 6-24 ity of tablet 00:00: [place] [facility] rosuvastati 2020-0 Yes 40mg Take 40 mg Univers n 40 mg 6-24 by mouth ity of tablet 00:00: at [place] [address] bedtime. Medical Branch JANUVIA 100 2020-0 Yes Univer s mg tablet 6-24 ity of 00:00: [place] [facility] furosemide 2020-0 Yes 40mg Take 40 mg U nivers 40 mg 6-24 by mouth ity of tablet 00:00: daily. [facility] Branch gabapentin 2020-0 Yes Univers 600 mg 6-24 ity of tablet 00:00: [place] [facility] JARDIANCE 2020-0 Yes Univers 25 mg Tab 6-24 ity of 00:00: [place] [facility] glimepiride 2020-0 Yes Univer s 1 mg tablet 6-24 ity of 00:00: [place] [facility] metFORMIN 2020-0 Yes Univers 1,000 mg 6-24 ity of tablet 00:00: [place] [facility] rosuvastati 2020-0 Yes 40mg Take 40 mg Univers n 40 mg 6-24 by mouth ity of tablet 00:00: at [place] [address] bedtime. Medical Branch JANUVIA 100 2020-0 Yes Univer s mg tablet 6-24 ity of 00:00: [place] [facility] furosemide 2020-0 Yes 40mg Take 40 mg U nivers 40 mg 6-24 by mouth ity of tablet 00:00: daily. [place] [facility] gabapentin 2020-0 Yes Univers 600 mg 6-24 ity of tablet 00:00: [place] [facility] JARDIANCE 2020-0 Yes Univers 25 mg Tab 6-24 ity of 00:00: [place] [facility] glimepiride 2020-0 Yes Univer s 1 mg tablet 6-24 ity of 00:00: [place] [facility] metFORMIN 2020-0 Yes Univers 1,000 mg 6-24 ity of tablet 00:00: [place] [facility] rosuvastati 2020-0 Yes 40mg Take 40 mg Univers n 40 mg 6-24 by mouth ity of tablet 00:00: at [place] [address] bedtime. Medical Branch JANUVIA 100 2020-0 Yes Univer s mg tablet 6-24 ity of 00:00: [place] [facility] furosemide 2020-0 Yes 40mg Take 40 mg U nivers 40 mg 6-24 by mouth ity of tablet 00:00: daily. [place] [facility] gabapentin 2020-0 Yes Univers 600 mg 6-24 ity of tablet 00:00: [place] [facility] JARDIANCE 2020-0 Yes Univers 25 mg Tab 6-24 ity of 00:00: [place] [facility] glimepiride 2020-0 Yes Univer s 1 mg tablet 6-24 ity of 00:00: [place] [facility] metFORMIN 2020-0 Yes Univers 1,000 mg 6-24 ity of tablet 00:00: [place] [facility] rosuvastati 2020-0 Yes 40mg Take 40 mg Univers n 40 mg 6-24 by mouth ity of tablet 00:00: at [place] [address] bedtime. Medical Branch JANUVIA 100 2020-0 Yes Univer s mg tablet 6-24 ity of 00:00: [place] [facility] furosemide 2020-0 Yes 40mg Take 40 mg U nivers 40 mg 6-24 by mouth ity of tablet 00:00: daily. [place] [facility] gabapentin 2020-0 Yes Univers 600 mg 6-24 ity of tablet 00:00: [place] [address] [facility] Branch JARDIANCE 2020-0 Yes Univers 25 mg Tab 6-24 ity of 00:00: [place] [facility] glimepiride 2020-0 Yes Univer s 1 mg tablet 6-24 ity of 00:00: [place] [address] [facility] Branch metFORMIN 2020-0 Yes Univers 1,000 mg 6-24 ity of tablet 00:00: [place] [facility] rosuvastati 2020-0 Yes 40mg Take 40 mg Univers n 40 mg 6-24 by mouth ity of tablet 00:00: at [place] [address] bedtime. Medical Branch JANUVIA 100 2020-0 Yes Univer s mg tablet 6-24 ity of 00:00: [place] [facility] furosemide 1-0 Yes 40mg Take 40 mg U nivers 40 mg 6-24 by mouth ity of tablet 00:00: daily. [place] [address] [facility] Branch gabapentin 2020-0 Yes Univers 600 mg 6-24 ity of tablet 00:00: [place] [facility] JARDIANCE 2020-0 Yes Univers 25 mg Tab 6-24 ity of 00:00: [place] [facility] glimepiride 2020-0 Yes Univer s 1 mg tablet 6-24 ity of 00:00: [place] [facility] metFORMIN 2020-0 Yes Univers 1,000 mg 6-24 ity of tablet 00:00: [place] [facility] rosuvastati 2020-0 Yes 40mg Take 40 mg Univers n 40 mg 6-24 by mouth ity of tablet 00:00: at [place] [address] bedtime. Medical Branch [facility] 100 2020-0 Yes Univer s mg tablet 6-24 ity of 00:00: [place] [facility] furosemide 2020-0 Yes 40mg Take 40 mg U nivers 40 mg 6-24 by mouth ity of tablet 00:00: daily. [place] [facility] gabapentin 2020-0 Yes Univers 600 mg 6-24 ity of tablet 00:00: [place] [facility] JARDIANCE 2020-0 Yes Univers 25 mg Tab 6-24 ity of 00:00: [place] [facility] glimepiride 2020-0 Yes Univer s 1 mg tablet 6-24 ity of 00:00: [place] [facility] metFORMIN 2020-0 Yes Univers 1,000 mg 6-24 ity of tablet 00:00: [place] [address] [facility] Branch rosuvastati 2020-0 Yes 40mg Take 40 mg Univers n 40 mg 6-24 by mouth ity of tablet 00:00: at [place] [address] bedtime. Medical Branch [facility] 100 2020-0 Yes Univer s mg tablet 6-24 ity of 00:00: [place] [facility] furosemide 2020-0 Yes 40mg Take 40 mg U nivers 40 mg 6-24 by mouth ity of tablet 00:00: daily. [place] [facility] gabapentin 2020-0 Yes Univers 600 mg 6-24 ity of tablet 00:00: [place] [address] [facility] Branch JARDIANCE 2020-0 Yes Univers 25 mg Tab 6-24 ity of 00:00: [place] [facility] glimepiride 2020-0 Yes Univer s 1 mg tablet 6-24 ity of 00:00: [place] [facility] metFORMIN 2020-0 Yes Univers 1,000 mg 6-24 ity of tablet 00:00: [place] [address] [facility] Branch rosuvastati 2020-0 Yes 40mg Take 40 mg Univers n 40 mg 6-24 by mouth ity of tablet 00:00: at [place] [address] bedtime. Medical Branch JANUVIA 100 2020-0 Yes Univer s mg tablet 6-24 ity of 00:00: [place] [facility] furosemide 2020-0 Yes 40mg Take 40 mg U nivers 40 mg 6-24 by mouth ity of tablet 00:00: daily. [place] [facility] gabapentin 2020-0 Yes Univers 600 mg 6-24 ity of tablet 00:00: [place] [address] [facility] Branch JARDIANCE 2020-0 Yes Univers 25 mg Tab 6-24 ity of 00:00: [place] [facility] glimepiride 2020-0 Yes Univer s 1 mg tablet 6-24 ity of 00:00: [place] [address] [facility] Branch metFORMIN 2020-0 Yes Univers 1,000 mg 6-24 ity of tablet 00:00: [place] [address] [facility] Branch rosuvastati 2020-0 Yes 40mg Take 40 mg Univers n 40 mg 6-24 by mouth ity of tablet 00:00: at [place] [address] bedtime. Medical Branch JANUVIA 100 2020-0 Yes Univer s mg tablet 6-24 ity of 00:00: [place] [address] [facility] Branch furosemide 2020-0 Yes 40mg Take 40 mg U nivers 40 mg 6-24 by mouth ity of tablet 00:00: daily. [place] [address] [facility] Branch gabapentin 2020-0 Yes Univers 600 mg 6-24 ity of tablet 00:00: [place] [address] [facility] Branch JARDIANCE 2020-0 Yes Univers 25 mg Tab 6-24 ity of 00:00: [place] [address] [facility] Branch glimepiride 2020-0 Yes Univer s 1 mg tablet 6-24 ity of 00:00: [place] [address] [facility] Branch metFORMIN 1-0 Yes Univers 1,000 mg 6-24 ity of tablet 00:00: [place] [address] [facility] Branch rosuvastati 2020-0 Yes 40mg Take 40 mg Univers n 40 mg 6-24 by mouth ity of tablet 00:00: at [place] [address] bedtime. Medical Branch JANUVIA 100 2020-0 Yes Univer s mg tablet 6-24 ity of 00:00: [place] [address] [facility] Branch furosemide 1-0 Yes 40mg Take 40 mg U nivers 40 mg 6-24 by mouth ity of tablet 00:00: daily. [place] [address] [facility] Branch gabapentin 2020-0 Yes Univers 600 mg 6-24 ity of tablet 00:00: [place] [facility] JARDIANCE 2020-0 Yes Univers 25 mg Tab 6-24 ity of 00:00: [place] [facility] glimepiride 2020-0 Yes Univer s 1 mg tablet 6-24 ity of 00:00: [place] [facility] metFORMIN 2020-0 Yes Univers 1,000 mg 6-24 ity of tablet 00:00: [place] [facility] rosuvastati 2020-0 Yes 40mg Take 40 mg Univers n 40 mg 6-24 by mouth ity of tablet 00:00: at [place] [address] bedtime. Medical Branch JANUVIA 100 0 Yes Univer s mg tablet 6-24 ity of 00:00: [place] [address] [facility] Branch furosemide 2020-0 Yes 40mg Take 40 mg U nivers 40 mg 6-24 by mouth ity of tablet 00:00: daily. [place] [address] [facility] Branch gabapentin 2020-0 Yes Univers 600 mg 6-24 ity of tablet 00:00: [place] [facility] JARDIANCE 0 Yes Univers 25 mg Tab 6-24 ity of 00:00: [place] [facility] glimepiride 0 Yes Univer s 1 mg tablet 6-24 ity of 00:00: [place] [address] [facility] Branch metFORMIN 2020-0 Yes Univers 1,000 mg 6-24 ity of tablet 00:00: [place] [address] [facility] Branch rosuvastati 2020-0 Yes 40mg Take 40 mg Univers n 40 mg 6-24 by mouth ity of tablet 00:00: at [place] [address] bedtime. Medical Branch JANIA 100 0 Yes Univer s mg tablet 6-24 ity of 00:00: [place] [facility] furosemide 2020-0 Yes 40mg Take 40 mg U nivers 40 mg 6-24 by mouth ity of tablet 00:00: daily. [place] [address] [facility] Branch Levemir 0 No (3 mL) FlexTouch 6-23 U-100 00:00: Insulin 100 00 unit/mL (3 mL) subcutaneou s pen Descovy 200 0 No 1mg mg-25 mg 6-23 tablet 00:00: 00 lisinopril 2020-0 No 1mg 5 mg tablet 6-23 00:00: 00 Jardiance 2020-0 No 1mg 25 mg 6-23 tablet 00:00: 00 Januvia 100 2021-0 No 1mg mg tablet 6-23 00:00: 00 furosemide 2021-0 No 1mg 40 mg 6-23 tablet 00:00: 00 Protonix 40 2021-0 No 1mg mg 6-23 tablet,agus 00:00: yed release 00 metformin 2021-0 No 1mg 1,000 mg 6-23 tablet 00:00: 00 glimepiride 2021-0 No 1mg 1 mg tablet 6-23 00:00: 00 gabapentin 2021-0 No 1mg 600 mg 6-23 tablet 00:00: 00 rosuvastati 2021-0 No 1mg n 40 mg 6-23 tablet 00:00: 00 Tivicay 50 2021-0 No 1mg mg tablet 623 00:00: 00 cyclobenzap 2021-0 No 1mg rine 10 mg 6-23 tablet 00:00: 00 Levemir 2021-0 No (3 mL) FlexTouch 6-23 U-100 00:00: Insulin 100 00 unit/mL (3 mL) subcutaneou s pen Descovy 200 2021-0 No 1mg mg-25 mg 6-23 tablet 00:00: 00 lisinopril 2021-0 No 1mg 5 mg tablet 6-23 00:00: 00 Jardiance 2021-0 No 1mg 25 mg 6-23 tablet 00:00: 00 Januvia 100 2021-0 No 1mg mg tablet 6-23 00:00: 00 furosemide 2021-0 No 1mg 40 mg 6-23 tablet 00:00: 00 Protonix 40 2021-0 No 1mg mg 6-23 tablet,agus 00:00: yed release 00 metformin 2021-0 No 1mg 1,000 mg 6-23 tablet 00:00: 00 glimepiride 2021-0 No 1mg 1 mg tablet 6-23 00:00: 00 gabapentin 2021-0 No 1mg 600 mg 6-23 tablet 00:00: 00 rosuvastati 2021-0 No 1mg n 40 mg 6-23 tablet 00:00: 00 Tivicay 50 2021-0 No 1mg mg tablet 6-23 00:00: 00 cyclobenzap 2021-0 No 1mg rine 10 mg 6-23 tablet 00:00: 00 Levemir 2021-0 No (3 mL) FlexTouch 6-23 U-100 00:00: Insulin 100 00 unit/mL (3 mL) subcutaneou s pen Descovy 200 2021-0 No 1mg mg-25 mg 6-23 tablet 00:00: 00 lisinopril 2021-0 No 1mg 5 mg tablet 623 00:00: 00 Jardiance 2021-0 No 1mg 25 mg 6-23 tablet 00:00: 00 Januvia 100 2021-0 No 1mg mg tablet 6 00:00: 00 furosemide 2021-0 No 1mg 40 mg 6-23 tablet 00:00: 00 Protonix 40 2021-0 No 1mg mg 6-23 tablet,agus 00:00: yed release 00 metformin 2021-0 No 1mg 1,000 mg 6-23 tablet 00:00: 00 glimepiride 2021-0 No 1mg 1 mg tablet 02-03 00:00: 00 gabapentin 2021-0 No 1mg 600 mg 6-23 tablet 00:00: 00 rosuvastati 2021-0 No 1mg n 40 mg 6-23 tablet 00:00: 00 Tivicay 50 2021-0 No 1mg mg tablet 23 00:00: 00 cyclobenzap 2021-0 No 1mg rine 10 mg 6-23 tablet 00:00: 00 spironolact 2021-0 No 5mg one 25 mg 6-03 tablet 00:00: 00 spironolact 2021-0 No 5mg one 25 mg 6-03 tablet 00:00: 00 spironolact 2021-0 No 5mg one 25 mg 6-03 tablet 00:00: 00 Levemir 2021-0 No (3 mL) FlexTouch 3-31 U-100 00:00: Insulin 100 00 unit/mL (3 mL) subcutaneou s pen Levemir 2021-0 No (3 mL) FlexTouch 3-31 U-100 00:00: Insulin 100 00 unit/mL (3 mL) subcutaneou s pen Levemir 2021-0 No (3 mL) FlexTouch 3-31 U-100 00:00: Insulin 100 00 unit/mL (3 mL) subcutaneou s pen ProAir HFA 2020-0 No 12mcg/a 90 3-19 ctuatio mcg/actuati 00:00: n on aerosol 00 inhaler Levemir 2020-0 No (3 mL) FlexTouch 3-19 U-100 00:00: Insulin 100 00 unit/mL (3 mL) subcutaneou s pen nystatin 2020-0 No 1unit/g 100,000 -19 presley unit/gram 00:00: topical 00 ointment Protonix 40 1-0 No 1mg mg 3-19 tablet,agus 00:00: yed release 00 furosemide 1-0 No 1mg 40 mg 3-19 tablet 00:00: 00 Januvia 100 1-0 No 1mg mg tablet -19 00:00: 00 Jardiance 1-0 No 1mg 25 mg 3-19 tablet 00:00: 00 Descovy 200 1-0 No 1mg mg-25 mg 3-19 tablet 00:00: 00 lisinopril 1-0 No 1mg 5 mg tablet -19 00:00: 00 glimepiride 1-0 No 1mg 1 mg tablet -19 00:00: 00 metformin 2021-0 No 1mg 1,000 mg 3-19 tablet 00:00: 00 rosuvastati 1-0 No 1mg n 40 mg 3-19 tablet 00:00: 00 Tivicay 50 1-0 No 1mg mg tablet -19 00:00: 00 cyclobenzap 1-0 No 1mg rine 10 mg 3-19 tablet 00:00: 00 promethazin 1-0 No 1mg e 25 mg 3-19 tablet 00:00: 00 potassium 1-0 No 1mEq chloride ER - 10 mEq 00:00: tablet,exte 00 nded release Dose 2020-0 No Unknown -19 00:00: 00 Alcohol 1-0 No 1 Prep Pads -19 00:00: 00 ProAir HFA 2020-0 No 12mcg/a 90 3-19 ctuatio mcg/actuati 00:00: n on aerosol 00 inhaler Levemir 2020-0 No (3 mL) FlexTouch 3-19 U-100 00:00: Insulin 100 00 unit/mL (3 mL) subcutaneou s pen nystatin 1-0 No 1unit/g 100,000 3-19 presley unit/gram 00:00: topical 00 ointment Protonix 40 1-0 No 1mg mg 3-19 tablet,agus 00:00: yed release 00 furosemide 1-0 No 1mg 40 mg 3-19 tablet 00:00: 00 Januvia 100 1-0 No 1mg mg tablet 3-19 00:00: 00 Jardiance 2021-0 No 1mg 25 mg 3-19 tablet 00:00: 00 Descovy 200 2021-0 No 1mg mg-25 mg 3-19 tablet 00:00: 00 lisinopril 2021-0 No 1mg 5 mg tablet -19 00:00: 00 glimepiride 1-0 No 1mg 1 mg tablet -19 00:00: 00 metformin 2021-0 No 1mg 1,000 mg 3-19 tablet 00:00: 00 rosuvastati 1-0 No 1mg n 40 mg 3-19 tablet 00:00: 00 Tivicay 50 1-0 No 1mg mg tablet -19 00:00: 00 cyclobenzap 1-0 No 1mg rine 10 mg 3-19 tablet 00:00: 00 promethazin 1-0 No 1mg e 25 mg 3-19 tablet 00:00: 00 potassium 1-0 No 1mEq chloride ER - 10 mEq 00:00: tablet,exte 00 nded release Dose 2020-0 No Unknown -19 00:00: 00 Alcohol 1-0 No 1 Prep Pads -19 00:00: 00 ProAir HFA 1-0 No 12mcg/a 90 -19 ctuatio mcg/actuati 00:00: n on aerosol 00 inhaler Levemir 1-0 No (3 mL) FlexTouch 3-19 U-100 00:00: Insulin 100 00 unit/mL (3 mL) subcutaneou s pen nystatin 1-0 No 1unit/g 100,000 3-19 presley unit/gram 00:00: topical 00 ointment Protonix 40 1-0 No 1mg mg 3-19 tablet,agus 00:00: yed release 00 furosemide 2021-0 No 1mg 40 mg 3-19 tablet 00:00: 00 Januvia 100 2021-0 No 1mg mg tablet 3-19 00:00: 00 Jardiance 2021-0 No 1mg 25 mg 3-19 tablet 00:00: 00 Descovy 200 2021-0 No 1mg mg-25 mg 3-19 tablet 00:00: 00 lisinopril 2021-0 No 1mg 5 mg tablet 3-19 00:00: 00 glimepiride 2021-0 No 1mg 1 mg tablet 3-19 00:00: 00 metformin 2021-0 No 1mg 1,000 mg 3-19 tablet 00:00: 00 rosuvastati 2021-0 No 1mg n 40 mg 3-19 tablet 00:00: 00 Tivicay 50 1-0 No 1mg mg tablet -19 00:00: 00 cyclobenzap 2021-0 No 1mg rine 10 mg 3-19 tablet 00:00: 00 promethazin 1-0 No 1mg e 25 mg 3-19 tablet 00:00: 00 potassium 1-0 No 1mEq chloride ER -19 10 mEq 00:00: tablet,exte 00 nded release Dose 1-0 No Unknown -19 00:00: 00 Alcohol 1-0 No 1 Prep Pads -19 00:00: 00 gabapentin 2021-0 No 1mg 600 mg 3-11 tablet 00:00: 00 gabapentin 2021-0 No 1mg 600 mg 3-11 tablet 00:00: 00 gabapentin 2021-0 No 1mg 600 mg 3-11 tablet 00:00: 00 Protonix 40 2021-0 No 1mg mg 1-15 tablet,agus 00:00: yed release 00 Flonase 2021-0 No 2mcg/ac Allergy 1-15 tuation Relief 50 00:00: mcg/actuati 00 on nasal spray,suspe nsion Protonix 40 1-0 No 1mg mg 1-15 tablet,agus 00:00: yed release 00 Flonase 2021-0 No 2mcg/ac Allergy 1-15 tuation Relief 50 00:00: mcg/actuati 00 on nasal spray,suspe nsion Protonix 40 1-0 No 1mg mg 1-15 tablet,agus 00:00: yed release 00 Flonase 1-0 No 2mcg/ac Allergy 1-15 tuation Relief 50 00:00: mcg/actuati 00 on nasal spray,suspe nsion promethazin 1-0 No 1mg e 25 mg 1-12 tablet 00:00: 00 promethazin 2021-0 No 1mg e 25 mg 1-12 tablet 00:00: 00 promethazin 1-0 No 1mg e 25 mg 1-12 tablet 00:00: 00 ProAir HFA 1-0 No 12mcg/a 90 1-06 ctuatio mcg/actuati 00:00: n on aerosol 00 inhaler nystatin 2020-0 No 1unit/g 100,000 1-06 presley unit/gram 00:00: topical 00 ointment potassium 2020-0 No 1mEq chloride ER 1-06 10 mEq 00:00: tablet,exte 00 nded release ProAir HFA 2020-0 No 12mcg/a 90 1-06 ctuatio mcg/actuati 00:00: n on aerosol 00 inhaler nystatin 1-0 No 1unit/g 100,000 1-06 presley unit/gram 00:00: topical 00 ointment potassium 1-0 No 1mEq chloride ER 1-06 10 mEq 00:00: tablet,exte 00 nded release ProAir HFA 1-0 No 12mcg/a 90 1-06 ctuatio mcg/actuati 00:00: n on aerosol 00 inhaler nystatin 1-0 No 1unit/g 100,000 1-06 presley unit/gram 00:00: topical 00 ointment potassium 1-0 No 1mEq chloride ER 1-06 10 mEq 00:00: tablet,exte 00 nded release Levemir 1-0 No (3 mL) FlexTouch 1-04 U-100 00:00: Insulin 100 00 unit/mL (3 mL) subcutaneou s pen lisinopril 1-0 No 1mg 5 mg tablet 04 00:00: 00 Descovy 200 1-0 No 1mg mg-25 mg 1-04 tablet 00:00: 00 Jardiance 1-0 No 1mg 25 mg 1-04 tablet 00:00: 00 Dose 2021-0 No Unknown -04 00:00: 00 Januvia 100 1-0 No 1mg mg tablet 08-17 00:00: 00 furosemide 2021-0 No 1mg 40 mg 1-04 tablet 00:00: 00 metformin 2021-0 No 1mg 1,000 mg 1-04 tablet 00:00: 00 glimepiride 2021-0 No 1mg 1 mg tablet 08-17 00:00: 00 rosuvastati 2021-0 No 1mg n 40 mg 1-04 tablet 00:00: 00 Tivicay 50 1-0 No 1mg mg tablet 08-17 00:00: 00 cyclobenzap 2020-0 No 1mg rine 10 mg -04 tablet 00:00: 00 ferrous 1-0 No 1(65 mg sulfate 325 08-17 iron) mg (65 mg 00:00: iron) 00 tablet,agus yed release Alcohol 2020-0 No 1 Prep Pads 08-17 00:00: 00 gabapentin 1-0 No 1mg 300 mg -04 capsule 00:00: 00 Levemir 1-0 No (3 mL) FlexTouch 1-04 U-100 00:00: Insulin 100 00 unit/mL (3 mL) subcutaneou s pen lisinopril 1-0 No 1mg 5 mg tablet 08-17 00:00: 00 Descovy 200 1-0 No 1mg mg-25 mg 1-04 tablet 00:00: 00 Jardiance 2021-0 No 1mg 25 mg 1-04 tablet 00:00: 00 Dose 1-0 No Unknown -04 00:00: 00 Januvia 100 1-0 No 1mg mg tablet 08-17 00:00: 00 furosemide 2021-0 No 1mg 40 mg 1-04 tablet 00:00: 00 metformin 2021-0 No 1mg 1,000 mg 1-04 tablet 00:00: 00 glimepiride 2021-0 No 1mg 1 mg tablet 08-17 00:00: 00 rosuvastati 2021-0 No 1mg n 40 mg 1-04 tablet 00:00: 00 Tivicay 50 1-0 No 1mg mg tablet 08-17 00:00: 00 cyclobenzap 2021-0 No 1mg rine 10 mg 1-04 tablet 00:00: 00 ferrous 2021-0 No 1(65 mg sulfate 325 1-04 iron) mg (65 mg 00:00: iron) 00 tablet,agus yed release Alcohol 2020-0 No 1 Prep Pads 1-04 00:00: 00 gabapentin 1-0 No 1mg 300 mg 1-04 capsule 00:00: 00 Levemir 1-0 No (3 mL) FlexTouch 1-04 U-100 00:00: Insulin 100 00 unit/mL (3 mL) subcutaneou s pen lisinopril 2020-0 No 1mg 5 mg tablet 1-04 00:00: 00 Descovy 200 2020-0 No 1mg mg-25 mg 1-04 tablet 00:00: 00 Jardiance 2020-0 No 1mg 25 mg 1-04 tablet 00:00: 00 Dose 2021-0 No Unknown 1-04 00:00: 00 Januvia 100 1-0 No 1mg mg tablet 1-04 00:00: 00 furosemide 1-0 No 1mg 40 mg 1-04 tablet 00:00: 00 metformin 1-0 No 1mg 1,000 mg 1-04 tablet 00:00: 00 glimepiride 1-0 No 1mg 1 mg tablet 1-04 00:00: 00 rosuvastati 1-0 No 1mg n 40 mg 1-04 tablet 00:00: 00 Tivicay 50 1-0 No 1mg mg tablet 1-04 00:00: 00 cyclobenzap 2020-0 No 1mg rine 10 mg 1-04 tablet 00:00: 00 ferrous 1-0 No 1(65 mg sulfate 325 1-04 iron) mg (65 mg 00:00: iron) 00 tablet,agus yed release Alcohol 2020-0 No 1 Prep Pads 1-04 00:00: 00 gabapentin 1-0 No 1mg 300 mg 1-04 capsule 00:00: 00 lisinopril 2019-1 No 1mg 5 mg tablet 0-28 00:00: 00 Descovy 200 2019-1 No 1mg mg-25 mg 0-28 tablet 00:00: 00 Jardiance 2019-1 No 1mg 25 mg 0-28 tablet 00:00: 00 aspirin 81 2020- No 1mg mg 0-28 tablet,agus 00:00: yed release 00 Januvia 100 2019- No 1mg mg tablet 0-28 00:00: 00 metformin 2019-1 No 1mg 1,000 mg 0-28 tablet 00:00: 00 glimepiride 2019- No 1mg 1 mg tablet 0-28 00:00: 00 rosuvastati 2019- No 1mg n 40 mg 0-28 tablet 00:00: 00 cyclobenzap 2019- No 1mg rine 10 mg 0-28 tablet 00:00: 00 ferrous 2019- No 1(65 mg sulfate 325 0-28 iron) mg (65 mg 00:00: iron) 00 tablet,agus yed release gabapentin 2019- No 1mg 300 mg 0-28 capsule 00:00: 00 lisinopril 2019- No 1mg 5 mg tablet 0-28 00:00: 00 Descovy 200 2019- No 1mg mg-25 mg 0-28 tablet 00:00: 00 Jardiance 2019- No 1mg 25 mg 0-28 tablet 00:00: 00 aspirin 81 2019-08 No 1mg mg 0-28 tablet,agus 00:00: yed release 00 Januvia 100 2019-08 No 1mg mg tablet 028 00:00: 00 metformin 2019-1 No 1mg 1,000 mg 0-28 tablet 00:00: 00 glimepiride 2019- No 1mg 1 mg tablet 0-28 00:00: 00 rosuvastati 2019- No 1mg n 40 mg 0-28 tablet 00:00: 00 cyclobenzap 2019- No 1mg rine 10 mg 0-28 tablet 00:00: 00 ferrous 2019-1 No 1(65 mg sulfate 325 0-28 iron) mg (65 mg 00:00: iron) 00 tablet,agus yed release gabapentin 2019- No 1mg 300 mg 0-28 capsule 00:00: 00 lisinopril 2019- No 1mg 5 mg tablet 0-28 00:00: 00 Descovy 200 2019-1 No 1mg mg-25 mg 0-28 tablet 00:00: 00 Jardiance 2019- No 1mg 25 mg 0-28 tablet 00:00: 00 aspirin 81 2019-08 No 1mg mg 0-28 tablet,agus 00:00: yed release 00 Januvia 100 2019-08 No 1mg mg tablet 0-28 00:00: 00 metformin 2019-08 No 1mg 1,000 mg 0-28 tablet 00:00: 00 glimepiride 2019-08 No 1mg 1 mg tablet 0-28 00:00: 00 rosuvastati 2019-08 No 1mg n 40 mg 0-28 tablet 00:00: 00 cyclobenzap 2019-08 No 1mg rine 10 mg 0-28 tablet 00:00: 00 ferrous 2019-08 No 1(65 mg sulfate 325 0-28 iron) mg (65 mg 00:00: iron) 00 tablet,agus yed release gabapentin 2019-08 No 1mg 300 mg 0-28 capsule 00:00: 00 Levemir 2019-08 No (3 mL) FlexTouch 0-26 U-100 00:00: Insulin 100 00 unit/mL (3 mL) subcutaneou s pen furosemide 2019-08 No 1mg 40 mg 0-26 tablet 00:00: 00 Tivicay 50 2019-08 No 1mg mg tablet 026 00:00: 00 Alcohol 2019-08 No 1 Prep Pads 0-26 00:00: 00 Levemir 2019-08 No (3 mL) FlexTouch 0-26 U-100 00:00: Insulin 100 00 unit/mL (3 mL) subcutaneou s pen furosemide 2019-08 No 1mg 40 mg 0-26 tablet 00:00: 00 Tivicay 50 2019-08 No 1mg mg tablet 0-26 00:00: 00 Alcohol 2019-08 No 1 Prep Pads 0-26 00:00: 00 Levemir 2019-08 No (3 mL) FlexTouch 0-26 U-100 00:00: Insulin 100 00 unit/mL (3 mL) subcutaneou s pen furosemide 2019-08 No 1mg 40 mg 0-26 tablet 00:00: 00 Tivicay 50 2019-08 No 1mg mg tablet 0-26 00:00: 00 Alcohol 2019-08 No 1 Prep Pads 0-26 00:00: 00 Levemir 2019-08 No (3 mL) FlexTouch 0-22 U-100 00:00: Insulin 100 00 unit/mL (3 mL) subcutaneou s pen Levemir 2020-1 No (3 mL) FlexTouch 0-22 U-100 00:00: Insulin 100 00 unit/mL (3 mL) subcutaneou s pen Levemir 2020-1 No (3 mL) FlexTouch 0-22 U-100 00:00: Insulin 100 00 unit/mL (3 mL) subcutaneou s pen ProAir HFA 2020-1 No 12mcg/a 90 0-17 ctuatio mcg/actuati 00:00: n on aerosol 00 inhaler ProAir HFA 2020-1 No 12mcg/a 90 0-17 ctuatio mcg/actuati 00:00: n on aerosol 00 inhaler ProAir HFA 2020-1 No 12mcg/a 90 0-17 ctuatio mcg/actuati 00:00: n on aerosol 00 inhaler ProAir HFA 2020-0 No 12mcg/a 90 9-25 ctuatio mcg/actuati 00:00: n on aerosol 00 inhaler Levemir 2020-0 No (3 mL) FlexTouch 9-25 U-100 00:00: Insulin 100 00 unit/mL (3 mL) subcutaneou s pen aspirin 81 2020-0 No 1mg mg 9-25 tablet,agus 00:00: yed release 00 ProAir HFA 2020-0 No 12mcg/a 90 9-25 ctuatio mcg/actuati 00:00: n on aerosol 00 inhaler Levemir 2020-0 No (3 mL) FlexTouch 9-25 U-100 00:00: Insulin 100 00 unit/mL (3 mL) subcutaneou s pen aspirin 81 2020-0 No 1mg mg 9-25 tablet,agus 00:00: yed release 00 ProAir HFA 2020-0 No 12mcg/a 90 9-25 ctuatio mcg/actuati 00:00: n on aerosol 00 inhaler Levemir 2020-0 No (3 mL) FlexTouch 9-25 U-100 00:00: Insulin 100 00 unit/mL (3 mL) subcutaneou s pen aspirin 81 2020-0 No 1mg mg 9-25 tablet,agus 00:00: yed release 00 Levemir 2020-0 No (3 mL) FlexTouch 9-04 U-100 00:00: Insulin 100 00 unit/mL (3 mL) subcutaneou s pen Levemir 2020-0 No (3 mL) FlexTouch 9-04 U-100 00:00: Insulin 100 00 unit/mL (3 mL) subcutaneou s pen Levemir 2020-0 No (3 mL) FlexTouch 9-04 U-100 00:00: Insulin 100 00 unit/mL (3 mL) subcutaneou s pen ProAir HFA 2020-0 No 12mcg/a 90 7-28 ctuatio mcg/actuati 00:00: n on aerosol 00 inhaler nystatin 2020-0 No 1unit/g 100,000 7-28 presley unit/gram 00:00: topical 00 ointment Alcohol 2020-0 No 1 Prep Pads 7-28 00:00: 00 ProAir HFA 2020-0 No 12mcg/a 90 7-28 ctuatio mcg/actuati 00:00: n on aerosol 00 inhaler nystatin 2020-0 No 1unit/g 100,000 7-28 presley unit/gram 00:00: topical 00 ointment Alcohol 2020-0 No 1 Prep Pads 7-28 00:00: 00 ProAir HFA 2020-0 No 12mcg/a 90 7-28 ctuatio mcg/actuati 00:00: n on aerosol 00 inhaler nystatin 2020-0 No 1unit/g 100,000 7-28 presley unit/gram 00:00: topical 00 ointment Alcohol 2020-0 No 1 Prep Pads 7-28 00:00: 00 Levemir 2020-0 No (3 mL) FlexTouch 7-25 U-100 00:00: Insulin 100 00 unit/mL (3 mL) subcutaneou s pen Januvia 100 2020-0 No 1mg mg tablet 7-25 00:00: 00 aspirin 81 2020-0 No 1mg mg 7-25 tablet,agus 00:00: yed release 00 Jardiance 2020-0 No 1mg 25 mg 7-25 tablet 00:00: 00 furosemide 2020-0 No 1mg 40 mg 7-25 tablet 00:00: 00 Descovy 200 2020-0 No 1mg mg-25 mg 7-25 tablet 00:00: 00 Jardiance 2020-0 No 1mg 25 mg 7-25 tablet 00:00: 00 metformin 2020-0 No 1mg 1,000 mg 7-25 tablet 00:00: 00 glimepiride 2020-0 No 1mg 1 mg tablet 725 00:00: 00 rosuvastati 2020-0 No 1mg n 40 mg 7-25 tablet 00:00: 00 Tivicay 50 2020-0 No 1mg mg tablet 7 00:00: 00 cyclobenzap 2020-0 No 1mg rine 10 mg 7-25 tablet 00:00: 00 promethazin 2020-0 No 1mg e 25 mg 7-25 tablet 00:00: 00 ferrous 2020-0 No 1(65 mg sulfate 325 7-25 iron) mg (65 mg 00:00: iron) 00 tablet,agus yed release potassium 2020-0 No 1mEq chloride ER 7-25 10 mEq 00:00: tablet,exte 00 nded release gabapentin 2020-0 No 1mg 300 mg 7-25 capsule 00:00: 00 Levemir 2020-0 No (3 mL) FlexTouch 7-25 U-100 00:00: Insulin 100 00 unit/mL (3 mL) subcutaneou s pen Januvia 100 2020-0 No 1mg mg tablet 03-07 00:00: 00 aspirin 81 2020-0 No 1mg mg 7-25 tablet,agus 00:00: yed release 00 Jardiance 2020-0 No 1mg 25 mg 7-25 tablet 00:00: 00 furosemide 2020-0 No 1mg 40 mg 7-25 tablet 00:00: 00 Descovy 200 2020-0 No 1mg mg-25 mg 7-25 tablet 00:00: 00 Jardiance 2020-0 No 1mg 25 mg 7-25 tablet 00:00: 00 metformin 2020-0 No 1mg 1,000 mg 7-25 tablet 00:00: 00 glimepiride 2020-0 No 1mg 1 mg tablet 25 00:00: 00 rosuvastati 2020-0 No 1mg n 40 mg 7-25 tablet 00:00: 00 Tivicay 50 2020-0 No 1mg mg tablet 725 00:00: 00 cyclobenzap 2020-0 No 1mg rine 10 mg 7-25 tablet 00:00: 00 promethazin 2020-0 No 1mg e 25 mg 7-25 tablet 00:00: 00 ferrous 2020-0 No 1(65 mg sulfate 325 7-25 iron) mg (65 mg 00:00: iron) 00 tablet,agus yed release potassium 2020-0 No 1mEq chloride ER 7-25 10 mEq 00:00: tablet,exte 00 nded release gabapentin 2020-0 No 1mg 300 mg 7-25 capsule 00:00: 00 Levemir 2020-0 No (3 mL) FlexTouch 7-25 U-100 00:00: Insulin 100 00 unit/mL (3 mL) subcutaneou s pen Januvia 100 2020-0 No 1mg mg tablet 7 00:00: 00 aspirin 81 2020-0 No 1mg mg 7-25 tablet,agus 00:00: yed release 00 Jardiance 2020-0 No 1mg 25 mg 7-25 tablet 00:00: 00 furosemide 2020-0 No 1mg 40 mg 7-25 tablet 00:00: 00 Descovy 200 2020-0 No 1mg mg-25 mg 7-25 tablet 00:00: 00 Jardiance 2020-0 No 1mg 25 mg 7-25 tablet 00:00: 00 metformin 2020-0 No 1mg 1,000 mg 7-25 tablet 00:00: 00 glimepiride 2020-0 No 1mg 1 mg tablet 03-07 00:00: 00 rosuvastati 2020-0 No 1mg n 40 mg 7-25 tablet 00:00: 00 Tivicay 50 2020-0 No 1mg mg tablet 03-07 00:00: 00 cyclobenzap 2020-0 No 1mg rine 10 mg 7-25 tablet 00:00: 00 promethazin 2020-0 No 1mg e 25 mg 7-25 tablet 00:00: 00 ferrous 2020-0 No 1(65 mg sulfate 325 7-25 iron) mg (65 mg 00:00: iron) 00 tablet,agus yed release potassium 2020-0 No 1mEq chloride ER 7-25 10 mEq 00:00: tablet,exte 00 nded release gabapentin 2020-0 No 1mg 300 mg 7-25 capsule 00:00: 00 Levemir 2020-0 No (3 mL) FlexTouch 6-16 U-100 00:00: Insulin 100 00 unit/mL (3 mL) subcutaneou s pen Januvia 100 2020-0 No 1mg mg tablet 616 00:00: 00 Levemir 2020-0 No (3 mL) FlexTouch 6-16 U-100 00:00: Insulin 100 00 unit/mL (3 mL) subcutaneou s pen Januvia 100 2020-0 No 1mg mg tablet 616 00:00: 00 Levemir 2020-0 No (3 mL) FlexTouch 6-16 U-100 00:00: Insulin 100 00 unit/mL (3 mL) subcutaneou s pen Januvia 100 2020-0 No 1mg mg tablet 616 00:00: 00 neomycin-po 2020-0 No 3mg/mL- lymyxin-hyd 5-22 unit/mL rocort 3.5 00:00: -% mg-10,000 00 unit/mL-1 % ear drops,susp amoxicillin 2020-0 No 1mg 875 5-22 mg-potassiu 00:00: m 00 clavulanate 125 mg tablet neomycin-po 2020-0 No 3mg/mL- lymyxin-hyd 5-22 unit/mL rocort 3.5 00:00: -% mg-10,000 00 unit/mL-1 % ear drops,susp amoxicillin 2020-0 No 1mg 875 5-22 mg-potassiu 00:00: m 00 clavulanate 125 mg tablet neomycin-po 2020-0 No 3mg/mL- lymyxin-hyd 5-22 unit/mL rocort 3.5 00:00: -% mg-10,000 00 unit/mL-1 % ear drops,susp amoxicillin 2020-0 No 1mg 875 5-22 mg-potassiu 00:00: m 00 clavulanate 125 mg tablet Levemir 2020-0 No 30(3 FlexTouch 5-20 mL) U-100 00:00: Insulin 100 00 unit/mL (3 mL) subcutaneou s pen Levemir 2020-0 No (3 mL) FlexTouch 5-20 U-100 00:00: Insulin 100 00 unit/mL (3 mL) subcutaneou s pen aspirin 81 2020-0 No 1mg mg 5-20 tablet,agus 00:00: yed release 00 aspirin 81 2020-0 No 1mg mg 5-20 tablet,agus 00:00: yed release 00 Levemir 2020-0 No 30(3 FlexTouch 5-20 mL) U-100 00:00: Insulin 100 00 unit/mL (3 mL) subcutaneou s pen ferrous 2020-0 No 1(65 mg sulfate 325 5-20 iron) mg (65 mg 00:00: iron) 00 tablet,agus yed release gabapentin 2020-0 No 1mg 300 mg 5-20 capsule 00:00: 00 Levemir 2020-0 No (3 mL) FlexTouch 5-20 U-100 00:00: Insulin 100 00 unit/mL (3 mL) subcutaneou s pen aspirin 81 2020-0 No 1mg mg 5-20 tablet,agus 00:00: yed release 00 aspirin 81 2020-0 No 1mg mg 5-20 tablet,agus 00:00: yed release 00 ferrous 2020-0 No 1(65 mg sulfate 325 5-20 iron) mg (65 mg 00:00: iron) 00 tablet,agus yed release gabapentin 2020-0 No 1mg 300 mg 5-20 capsule 00:00: 00 Levemir 2020-0 No 30(3 FlexTouch 5-20 mL) U-100 00:00: Insulin 100 00 unit/mL (3 mL) subcutaneou s pen Levemir 2020-0 No (3 mL) FlexTouch 5-20 U-100 00:00: Insulin 100 00 unit/mL (3 mL) subcutaneou s pen aspirin 81 2020-0 No 1mg mg 5-20 tablet,agus 00:00: yed release 00 aspirin 81 2020-0 No 1mg mg 5-20 tablet,agus 00:00: yed release 00 ferrous 2020-0 No 1(65 mg sulfate 325 5-20 iron) mg (65 mg 00:00: iron) 00 tablet,agus yed release gabapentin 2020-0 No 1mg 300 mg 5-20 capsule 00:00: 00 rosuvastati 2020-0 No 1mg n 40 mg 5-12 tablet 00:00: 00 rosuvastati 2020-0 No 1mg n 40 mg 5-12 tablet 00:00: 00 rosuvastati 2020-0 No 1mg n 40 mg 5-12 tablet 00:00: 00 Levemir 2020-0 No 30(3 FlexTouch 5-05 mL) U-100 00:00: Insulin 100 00 unit/mL (3 mL) subcutaneou s pen Levemir 2020-0 No 30(3 FlexTouch 5-05 mL) U-100 00:00: Insulin 100 00 unit/mL (3 mL) subcutaneou s pen Levemir 2020-0 No 30(3 FlexTouch 5-05 mL) U-100 00:00: Insulin 100 00 unit/mL (3 mL) subcutaneou s pen furosemide 2020-0 No 1mg 40 mg 4-27 tablet 00:00: 00 aspirin 81 2020-0 No 1mg mg 4-27 tablet,agus 00:00: yed release 00 Jardiance 2020-0 No 1mg 25 mg 4-27 tablet 00:00: 00 metformin 2020-0 No 1mg 1,000 mg 4-27 tablet 00:00: 00 glimepiride 2020-0 No 1mg 1 mg tablet 27 00:00: 00 cyclobenzap 2020-0 No 1mg rine 10 mg 4-27 tablet 00:00: 00 ferrous 2020-0 No 1(65 mg sulfate 325 4-27 iron) mg (65 mg 00:00: iron) 00 tablet,agus yed release Levemir 2020-0 No 30(3 FlexTouch 4-27 mL) U-100 00:00: Insulin 100 00 unit/mL (3 mL) subcutaneou s pen furosemide 2020-0 No 1mg 40 mg 4-27 tablet 00:00: 00 aspirin 81 2020-0 No 1mg mg 4-27 tablet,agus 00:00: yed release 00 Jardiance 2020-0 No 1mg 25 mg 4-27 tablet 00:00: 00 metformin 2020-0 No 1mg 1,000 mg 4-27 tablet 00:00: 00 glimepiride 2020-0 No 1mg 1 mg tablet 4-27 00:00: 00 cyclobenzap 2020-0 No 1mg rine 10 mg 4-27 tablet 00:00: 00 ferrous 2020-0 No 1(65 mg sulfate 325 4-27 iron) mg (65 mg 00:00: iron) 00 tablet,agus yed release Levemir 2020-0 No 30(3 FlexTouch 4-27 mL) U-100 00:00: Insulin 100 00 unit/mL (3 mL) subcutaneou s pen furosemide 2020-0 No 1mg 40 mg 4-27 tablet 00:00: 00 aspirin 81 2020-0 No 1mg mg 4-27 tablet,agus 00:00: yed release 00 Jardiance 2020-0 No 1mg 25 mg 4-27 tablet 00:00: 00 metformin 2020-0 No 1mg 1,000 mg 4-27 tablet 00:00: 00 glimepiride 2020-0 No 1mg 1 mg tablet 27 00:00: 00 cyclobenzap 2020-0 No 1mg rine 10 mg 4-27 tablet 00:00: 00 ferrous 2020-0 No 1(65 mg sulfate 325 4-27 iron) mg (65 mg 00:00: iron) 00 tablet,agus yed release Levemir 2020-0 No 30(3 FlexTouch 4-27 mL) U-100 00:00: Insulin 100 00 unit/mL (3 mL) subcutaneou s pen Januvia 100 2020-0 No 1mg mg tablet 4-08 00:00: 00 Descovy 200 2020-0 No 1mg mg-25 mg 4-08 tablet 00:00: 00 Jardiance 2020-0 No 1mg 25 mg 4-08 tablet 00:00: 00 Tivicay 50 2020-0 No 1mg mg tablet 4-08 00:00: 00 promethazin 2020-0 No 1mg e 25 mg 4-08 tablet 00:00: 00 potassium 2020-0 No 1mEq chloride ER 4-08 10 mEq 00:00: tablet,exte 00 nded release Januvia 100 2020-0 No 1mg mg tablet 4-08 00:00: 00 Descovy 200 2020-0 No 1mg mg-25 mg 4-08 tablet 00:00: 00 Jardiance 2020-0 No 1mg 25 mg 4-08 tablet 00:00: 00 Tivicay 50 2020-0 No 1mg mg tablet 4-08 00:00: 00 promethazin 2020-0 No 1mg e 25 mg 4-08 tablet 00:00: 00 potassium 2020-0 No 1mEq chloride ER 4-08 10 mEq 00:00: tablet,exte 00 nded release Januvia 100 2020-0 No 1mg mg tablet 4-08 00:00: 00 Descovy 200 2020-0 No 1mg mg-25 mg 4-08 tablet 00:00: 00 Jardiance 2020-0 No 1mg 25 mg 4-08 tablet 00:00: 00 Tivicay 50 2020-0 No 1mg mg tablet 4-08 00:00: 00 promethazin 2020-0 No 1mg e 25 mg 4-08 tablet 00:00: 00 potassium 2020-0 No 1mEq chloride ER 4-08 10 mEq 00:00: tablet,exte 00 nded release Januvia 100 2020-0 No 1mg mg tablet 3-17 00:00: 00 Descovy 200 2020-0 No 1mg mg-25 mg 3-17 tablet 00:00: 00 Tivicay 50 2020-0 No 1mg mg tablet 3-17 00:00: 00 promethazin 2020-0 No 1mg e 25 mg 3-17 tablet 00:00: 00 Januvia 100 2020-0 No 1mg mg tablet 3-17 00:00: 00 Descovy 200 2020-0 No 1mg mg-25 mg 3-17 tablet 00:00: 00 Tivicay 50 2020-0 No 1mg mg tablet 3-17 00:00: 00 promethazin 2020-0 No 1mg e 25 mg 3-17 tablet 00:00: 00 Januvia 100 2020-0 No 1mg mg tablet 3-17 00:00: 00 Descovy 200 2020-0 No 1mg mg-25 mg 3-17 tablet 00:00: 00 Tivicay 50 2020-0 No 1mg mg tablet 3-17 00:00: 00 promethazin 2020-0 No 1mg e 25 mg 3-17 tablet 00:00: 00 Levemir 2020-0 No 30(3 FlexTouch 2-25 mL) U-100 00:00: Insulin 100 00 unit/mL (3 mL) subcutaneou s pen Jardiance 2020-0 No 1mg 25 mg 2-25 tablet 00:00: 00 levofloxaci 2020-0 No 1mg n 750 mg 2-25 tablet 00:00: 00 sulfamethox 2020-0 No 1mg azole 800 2-25 mg-trimetho 00:00: prim 160 mg 00 tablet potassium 2020-0 No 1mEq chloride ER 2-25 10 mEq 00:00: tablet,exte 00 nded release Bromfed DM 2020-0 No 5mg/5 2 mg-30 2-25 mL mg-10 mg/5 00:00: mL oral 00 syrup albuterol 2020-0 No 3/3 mL sulfate 2.5 2-25 (0.083 mg/3 mL 00:00: %) (0.083 %) 00 solution for nebulizatio n Levemir 2020-0 No 30(3 FlexTouch 2-25 mL) U-100 00:00: Insulin 100 00 unit/mL (3 mL) subcutaneou s pen Jardiance 2020-0 No 1mg 25 mg 2-25 tablet 00:00: 00 levofloxaci 2020-0 No 1mg n 750 mg 2-25 tablet 00:00: 00 sulfamethox 2020-0 No 1mg azole 800 2-25 mg-trimetho 00:00: prim 160 mg 00 tablet potassium 2020-0 No 1mEq chloride ER 2-25 10 mEq 00:00: tablet,exte 00 nded release Bromfed DM 2020-0 No 5mg/5 2 mg-30 2-25 mL mg-10 mg/5 00:00: mL oral 00 syrup albuterol 2020-0 No 3/3 mL sulfate 2.5 2-25 (0.083 mg/3 mL 00:00: %) (0.083 %) 00 solution for nebulizatio n Levemir 2020-0 No 30(3 FlexTouch 2-25 mL) U-100 00:00: Insulin 100 00 unit/mL (3 mL) subcutaneou s pen Jardiance 2020-0 No 1mg 25 mg 2-25 tablet 00:00: 00 levofloxaci 2020-0 No 1mg n 750 mg 2-25 tablet 00:00: 00 sulfamethox 2020-0 No 1mg azole 800 2-25 mg-trimetho 00:00: prim 160 mg 00 tablet potassium 2020-0 No 1mEq chloride ER 2-25 10 mEq 00:00: tablet,exte 00 nded release Bromfed DM 2020-0 No 5mg/5 2 mg-30 2-25 mL mg-10 mg/5 00:00: mL oral 00 syrup albuterol 2020-0 No 3/3 mL sulfate 2.5 2-25 (0.083 mg/3 mL 00:00: %) (0.083 %) 00 solution for nebulizatio n ProAir HFA 2020-0 No 12mcg/a 90 2-04 ctuatio mcg/actuati 00:00: n on aerosol 00 inhaler Jardiance 2020-0 No 1mg 25 mg 2-04 tablet 00:00: 00 aspirin 81 2020-0 No 1mg mg 2-04 tablet,agus 00:00: yed release 00 Jardiance 2020-0 No 1mg 25 mg 2-04 tablet 00:00: 00 furosemide 2020-0 No 1mg 40 mg 2-04 tablet 00:00: 00 aspirin 81 2020-0 No 1mg mg 2-04 tablet,agus 00:00: yed release 00 Januvia 100 2020-0 No 1mg mg tablet 2-04 00:00: 00 glimepiride 2020-0 No 1mg 1 mg tablet 2-04 00:00: 00 metformin 2020-0 No 1mg 1,000 mg 2-04 tablet 00:00: 00 Tivicay 50 2020-0 No 1mg mg tablet 2-04 00:00: 00 cyclobenzap 2020-0 No 1mg rine 10 mg 2-04 tablet 00:00: 00 ferrous 2020-0 No 1(65 mg sulfate 325 2-04 iron) mg (65 mg 00:00: iron) 00 tablet,agus yed release potassium 2020-0 No 1mEq chloride ER 2-04 10 mEq 00:00: tablet,exte 00 nded release Alcohol 2020-0 No 1 Prep Pads 2-04 00:00: 00 ProAir HFA 2020-0 No 12mcg/a 90 2-04 ctuatio mcg/actuati 00:00: n on aerosol 00 inhaler Jardiance 2020-0 No 1mg 25 mg 2-04 tablet 00:00: 00 aspirin 81 2020-0 No 1mg mg 2-04 tablet,agus 00:00: yed release 00 Jardiance 2020-0 No 1mg 25 mg 2-04 tablet 00:00: 00 furosemide 2020-0 No 1mg 40 mg 2-04 tablet 00:00: 00 aspirin 81 2020-0 No 1mg mg 2-04 tablet,agus 00:00: yed release 00 Januvia 100 2020-0 No 1mg mg tablet 2-04 00:00: 00 glimepiride 2020-0 No 1mg 1 mg tablet 2-04 00:00: 00 metformin 2020-0 No 1mg 1,000 mg 2-04 tablet 00:00: 00 Tivicay 50 2020-0 No 1mg mg tablet 2-04 00:00: 00 cyclobenzap 2020-0 No 1mg rine 10 mg 2-04 tablet 00:00: 00 ferrous 2020-0 No 1(65 mg sulfate 325 2-04 iron) mg (65 mg 00:00: iron) 00 tablet,agus yed release potassium 2020-0 No 1mEq chloride ER 2-04 10 mEq 00:00: tablet,exte 00 nded release Alcohol 2020-0 No 1 Prep Pads 2-04 00:00: 00 ProAir HFA 2020-0 No 12mcg/a 90 2-04 ctuatio mcg/actuati 00:00: n on aerosol 00 inhaler Jardiance 2020-0 No 1mg 25 mg 2-04 tablet 00:00: 00 aspirin 81 2020-0 No 1mg mg 2-04 tablet,agus 00:00: yed release 00 Jardiance 2020-0 No 1mg 25 mg 2-04 tablet 00:00: 00 furosemide 2020-0 No 1mg 40 mg 2-04 tablet 00:00: 00 aspirin 81 2020-0 No 1mg mg 2-04 tablet,agus 00:00: yed release 00 Januvia 100 2020-0 No 1mg mg tablet 2-04 00:00: 00 glimepiride 2020-0 No 1mg 1 mg tablet 2-04 00:00: 00 metformin 2020-0 No 1mg 1,000 mg 2-04 tablet 00:00: 00 Tivicay 50 2020-0 No 1mg mg tablet 2-04 00:00: 00 cyclobenzap 2020-0 No 1mg rine 10 mg 2-04 tablet 00:00: 00 ferrous 2020-0 No 1(65 mg sulfate 325 2-04 iron) mg (65 mg 00:00: iron) 00 tablet,agus yed release potassium 2020-0 No 1mEq chloride ER 2-04 10 mEq 00:00: tablet,exte 00 nded release Alcohol 2020-0 No 1 Prep Pads 2-04 00:00: 00 ProAir HFA 2020-0 No 12mcg/a 90 1-29 ctuatio mcg/actuati 00:00: n on aerosol 00 inhaler Levemir 2020-0 No 20(3 FlexTouch 1-29 mL) U-100 00:00: Insulin 100 00 unit/mL (3 mL) subcutaneou s pen Levemir 2020-0 No 30(3 FlexTouch 1-29 mL) U-100 00:00: Insulin 100 00 unit/mL (3 mL) subcutaneou s pen aspirin 81 2020-0 No 1mg mg 1-29 tablet,agus 00:00: yed release 00 Januvia 100 2020-0 No 1mg mg tablet 09-11 00:00: 00 Jardiance 2020-0 No 1mg 25 mg 1-29 tablet 00:00: 00 furosemide 2020-0 No 1mg 40 mg -29 tablet 00:00: 00 aspirin 81 2020-0 No 1mg mg -29 tablet,agus 00:00: yed release 00 Descovy 200 2020-0 No 1mg mg-25 mg -29 tablet 00:00: 00 glimepiride 2020-0 No 1mg 1 mg tablet 09-11 00:00: 00 metformin 2020-0 No 1mg 1,000 mg -29 tablet 00:00: 00 Tivicay 50 2020-0 No 1mg mg tablet 09-11 00:00: 00 cyclobenzap 2020-0 No 1mg rine 10 mg - tablet 00:00: 00 ferrous 2020-0 No 1(65 mg sulfate 325 -29 iron) mg (65 mg 00:00: iron) 00 tablet,agus yed release ferrous 2020-0 No 1(65 mg sulfate 325 -29 iron) mg (65 mg 00:00: iron) 00 tablet,agus yed release potassium 2020-0 No 1mEq chloride ER -29 10 mEq 00:00: tablet,exte 00 nded release ProAir HFA 2020-0 No 12mcg/a 90 1-29 ctuatio mcg/actuati 00:00: n on aerosol 00 inhaler Levemir 2020-0 No 20(3 FlexTouch 1-29 mL) U-100 00:00: Insulin 100 00 unit/mL (3 mL) subcutaneou s pen Levemir 2020-0 No 30(3 FlexTouch 1-29 mL) U-100 00:00: Insulin 100 00 unit/mL (3 mL) subcutaneou s pen aspirin 81 2020-0 No 1mg mg 1-29 tablet,agus 00:00: yed release 00 Januvia 100 2020-0 No 1mg mg tablet 09-11 00:00: 00 ProAir HFA 2020-0 No 12mcg/a 90 09-11 ctuatio mcg/actuati 00:00: n on aerosol 00 inhaler Levemir 2020-0 No 20(3 FlexTouch 1-29 mL) U-100 00:00: Insulin 100 00 unit/mL (3 mL) subcutaneou s pen Jardiance 2020-0 No 1mg 25 mg -29 tablet 00:00: 00 Levemir 2020-0 No 30(3 FlexTouch 1-29 mL) U-100 00:00: Insulin 100 00 unit/mL (3 mL) subcutaneou s pen aspirin 81 2020-0 No 1mg mg -29 tablet,agus 00:00: yed release 00 Januvia 100 2020-0 No 1mg mg tablet 09-11 00:00: 00 Jardiance 2020-0 No 1mg 25 mg 1-29 tablet 00:00: 00 furosemide 2020-0 No 1mg 40 mg -29 tablet 00:00: 00 aspirin 81 2020-0 No 1mg mg -29 tablet,agus 00:00: yed release 00 Descovy 200 2020-0 No 1mg mg-25 mg -29 tablet 00:00: 00 glimepiride 2020-0 No 1mg 1 mg tablet 09-11 00:00: 00 metformin 2020-0 No 1mg 1,000 mg -29 tablet 00:00: 00 Tivicay 50 2020-0 No 1mg mg tablet 09-11 00:00: 00 furosemide 2020-0 No 1mg 40 mg -29 tablet 00:00: 00 cyclobenzap 2020-0 No 1mg rine 10 mg -29 tablet 00:00: 00 ferrous 2020-0 No 1(65 mg sulfate 325 -29 iron) mg (65 mg 00:00: iron) 00 tablet,agus yed release ferrous 2020-0 No 1(65 mg sulfate 325 -29 iron) mg (65 mg 00:00: iron) 00 tablet,agus yed release potassium 2020-0 No 1mEq chloride ER 09-11 10 mEq 00:00: tablet,exte 00 nded release aspirin 81 2019-0 No 1mg mg 1-29 tablet,agus 00:00: yed release 00 Descovy 200 2019-0 No 1mg mg-25 mg -29 tablet 00:00: 00 glimepiride 2020-0 No 1mg 1 mg tablet 09-11 00:00: 00 metformin 2020-0 No 1mg 1,000 mg -29 tablet 00:00: 00 Tivicay 50 2019-0 No 1mg mg tablet 09-11 00:00: 00 cyclobenzap 2020-0 No 1mg rine 10 mg -29 tablet 00:00: 00 ferrous 2020-0 No 1(65 mg sulfate 325 1-29 iron) mg (65 mg 00:00: iron) 00 tablet,agus yed release ferrous 2019-0 No 1(65 mg sulfate 325 1-29 iron) mg (65 mg 00:00: iron) 00 tablet,agus yed release potassium 2019-0 No 1mEq chloride ER - 10 mEq 00:00: tablet,exte 00 nded release rosuvastati 2020-0 No 1mg n 40 mg 1-02 tablet 00:00: 00 Alcohol 2020-0 No 1 Prep Pads 1-02 00:00: 00 rosuvastati 2020-0 No 1mg n 40 mg 1-02 tablet 00:00: 00 Alcohol 2020-0 No 1 Prep Pads -02 00:00: 00 rosuvastati 2020-0 No 1mg n 40 mg 1-02 tablet 00:00: 00 Alcohol 2020-0 No 1 Prep Pads 1-02 00:00: 00 ferrous 2019-1 No 1(65 mg sulfate 325 2-31 iron) mg (65 mg 00:00: iron) 00 tablet,agus yed release ferrous 2018-1 No 1(65 mg sulfate 325 2-31 iron) mg (65 mg 00:00: iron) 00 tablet,agus yed release ferrous 2019-1 No 1(65 mg sulfate 325 2-31 iron) mg (65 mg 00:00: iron) 00 tablet,agus yed release ProAir HFA 2018- No 12mcg/a 90 2-17 ctuatio mcg/actuati 00:00: n on aerosol 00 inhaler aspirin 81 2018- No 1mg mg 2-17 tablet,agus 00:00: yed release 00 furosemide 2019-1 No 1mg 40 mg 2-17 tablet 00:00: 00 Januvia 100 2019-1 No 1mg mg tablet 2-17 00:00: 00 aspirin 81 2019-1 No 1mg mg 2-17 tablet,agus 00:00: yed release metformin 2019-1 No 1mg 1,000 mg 2-17 tablet 00:00: 00 glimepiride 2019-1 No 1mg 1 mg tablet 2-17 00:00: 00 cyclobenzap 2018- No 1mg rine 10 mg 2-17 tablet 00:00: 00 nitroglycer 2018- No 1mg in 0.4 mg 2-17 sublingual 00:00: tablet 00 ferrous 2018- No 1(65 mg sulfate 325 2-17 iron) mg (65 mg 00:00: iron) 00 tablet,agus yed release potassium 2018- No 1mEq chloride ER 2-17 10 mEq 00:00: tablet,exte 00 nded release ProAir HFA 2018-08 No 12mcg/a 90 2-17 ctuatio mcg/actuati 00:00: n on aerosol 00 inhaler aspirin 81 2018- No 1mg mg 2-17 tablet,agus 00:00: yed release furosemide 2018- No 1mg 40 mg 2-17 tablet 00:00: 00 Januvia 100 2018-1 No 1mg mg tablet 2-17 00:00: 00 aspirin 81 2018- No 1mg mg 2-17 tablet,agus 00:00: yed release metformin 2019-1 No 1mg 1,000 mg 2-17 tablet 00:00: 00 glimepiride 2019-1 No 1mg 1 mg tablet 2-17 00:00: 00 cyclobenzap 2018- No 1mg rine 10 mg 2-17 tablet 00:00: 00 nitroglycer 2018- No 1mg in 0.4 mg 2-17 sublingual 00:00: tablet 00 ferrous 2018- No 1(65 mg sulfate 325 2-17 iron) mg (65 mg 00:00: iron) 00 tablet,agus yed release potassium 2018- No 1mEq chloride ER 2-17 10 mEq 00:00: tablet,exte 00 nded release ProAir HFA 2018-08 No 12mcg/a 90 2-17 ctuatio mcg/actuati 00:00: n on aerosol 00 inhaler aspirin 81 2018- No 1mg mg 2-17 tablet,agus 00:00: yed release 00 furosemide 2019- No 1mg 40 mg 2-17 tablet 00:00: 00 Januvia 100 2018- No 1mg mg tablet 2-17 00:00: 00 aspirin 81 2018- No 1mg mg 2-17 tablet,agus 00:00: yed release 00 metformin 2018- No 1mg 1,000 mg 2-17 tablet 00:00: 00 glimepiride 2018- No 1mg 1 mg tablet 2-17 00:00: 00 cyclobenzap 2018- No 1mg rine 10 mg 2-17 tablet 00:00: 00 nitroglycer 2018- No 1mg in 0.4 mg 2-17 sublingual 00:00: tablet 00 ferrous 2018- No 1(65 mg sulfate 325 2-17 iron) mg (65 mg 00:00: iron) 00 tablet,agus yed release potassium 2018- No 1mEq chloride ER 2-17 10 mEq 00:00: tablet,exte 00 nded release aspirin 81 2018- No 1mg mg 1-19 tablet,agus 00:00: yed release 00 aspirin 81 2018- No 1mg mg 1-19 tablet,agus 00:00: yed release 00 aspirin 81 2018- No 1mg mg 1-19 tablet,agus 00:00: yed release 00 ProAir HFA 2018-08 No 12mcg/a 90 1-13 ctuatio mcg/actuati 00:00: n on aerosol 00 inhaler aspirin 81 2018- No 1mg mg 1-13 tablet,agus 00:00: yed release 00 Januvia 100 2018- No 1mg mg tablet 1-13 00:00: 00 furosemide 2019-1 No 1mg 40 mg 1-13 tablet 00:00: 00 glimepiride 2018- No 1mg 1 mg tablet 1-13 00:00: 00 metformin 2019-1 No 1mg 1,000 mg 1-13 tablet 00:00: 00 cyclobenzap 2018- No 1mg rine 10 mg 1-13 tablet 00:00: 00 nitroglycer 2018-08 No 1mg in 0.4 mg 1-13 sublingual 00:00: tablet 00 ferrous 2018- No 1(65 mg sulfate 325 -13 iron) mg (65 mg 00:00: iron) 00 tablet,agus yed release potassium 2018-08 No 1mEq chloride ER -13 10 mEq 00:00: tablet,exte 00 nded release ProAir HFA 2018-08 No 12mcg/a 90 -13 ctuatio mcg/actuati 00:00: n on aerosol 00 inhaler aspirin 81 2018-08 No 1mg mg -13 tablet,agus 00:00: yed release Januvia 100 2018-08 No 1mg mg tablet 08-26 00:00: 00 furosemide 2018- No 1mg 40 mg -13 tablet 00:00: 00 glimepiride 2018- No 1mg 1 mg tablet 08-26 00:00: 00 metformin 2018- No 1mg 1,000 mg -13 tablet 00:00: 00 cyclobenzap 2018-08 No 1mg rine 10 mg -13 tablet 00:00: 00 nitroglycer 2018-08 No 1mg in 0.4 mg -13 sublingual 00:00: tablet 00 ferrous 2018- No 1(65 mg sulfate 325 08-26 iron) mg (65 mg 00:00: iron) 00 tablet,agus yed release potassium 2018-08 No 1mEq chloride ER 08-26 10 mEq 00:00: tablet,exte 00 nded release ProAir HFA 2018-08 No 12mcg/a 90 -13 ctuatio mcg/actuati 00:00: n on aerosol 00 inhaler aspirin 81 2018-08 No 1mg mg -13 tablet,agus 00:00: yed release Januvia 100 2018-08 No 1mg mg tablet 08-26 00:00: 00 furosemide 2019-1 No 1mg 40 mg 1-13 tablet 00:00: 00 glimepiride 2018- No 1mg 1 mg tablet 13 00:00: 00 metformin 2019-1 No 1mg 1,000 mg -13 tablet 00:00: 00 cyclobenzap 2018- No 1mg rine 10 mg 1-13 tablet 00:00: 00 nitroglycer 2018- No 1mg in 0.4 mg 1-13 sublingual 00:00: tablet 00 ferrous 2019-1 No 1(65 mg sulfate 325 1-13 iron) mg (65 mg 00:00: iron) 00 tablet,agus yed release potassium 2018- No 1mEq chloride ER 1-13 10 mEq 00:00: tablet,exte 00 nded release tramadol 50 2018-1 No 1mg mg tablet 008 00:00: 00 tramadol 50 2018-1 No 1mg mg tablet 008 00:00: 00 tramadol 50 2018-1 No 1mg mg tablet 008 00:00: 00 tramadol 50 2019-0 No 1mg mg tablet 05-07 00:00: 00 tramadol 50 2019-0 No 1mg mg tablet 9 00:00: 00 tramadol 50 2019-0 No 1mg mg tablet 05-07 00:00: 00 glimepiride 2019-0 No 1mg 1 mg tablet 04-04 00:00: 00 ferrous 2019-0 No 1(65 mg sulfate 325 8-22 iron) mg (65 mg 00:00: iron) 00 tablet,agus yed release glimepiride 2018-0 No 1mg 1 mg tablet 04-04 00:00: 00 ferrous 2019-0 No 1(65 mg sulfate 325 8-22 iron) mg (65 mg 00:00: iron) 00 tablet,agus yed release glimepiride 2018-0 No 1mg 1 mg tablet 04-04 00:00: 00 ferrous 2019-0 No 1(65 mg sulfate 325 8-22 iron) mg (65 mg 00:00: iron) 00 tablet,agus yed release ProAir HFA 2019-0 No 12mcg/a 90 8-20 ctuatio mcg/actuati 00:00: n on aerosol 00 inhaler furosemide 2019-0 No 1mg 40 mg 8-20 tablet 00:00: 00 Januvia 100 2019-0 No 1mg mg tablet 8 00:00: 00 aspirin 81 2019-0 No 1mg mg 8-20 tablet,agus 00:00: yed release 00 metformin 2019-0 No 1mg 1,000 mg 8-20 tablet 00:00: 00 cyclobenzap 2019-0 No 1mg rine 10 mg 8-20 tablet 00:00: 00 nitroglycer 2019-0 No 1mg in 0.4 mg 8-20 sublingual 00:00: tablet 00 potassium 2019-0 No 1mEq chloride ER 8-20 10 mEq 00:00: tablet,exte 00 nded release ProAir HFA 2019-0 No 12mcg/a 90 8-20 ctuatio mcg/actuati 00:00: n on aerosol 00 inhaler furosemide 2019-0 No 1mg 40 mg 8-20 tablet 00:00: 00 Januvia 100 2019-0 No 1mg mg tablet 8-20 00:00: 00 aspirin 81 2019-0 No 1mg mg 8-20 tablet,agus 00:00: yed release 00 metformin 2019-0 No 1mg 1,000 mg 8-20 tablet 00:00: 00 cyclobenzap 2019-0 No 1mg rine 10 mg 8-20 tablet 00:00: 00 nitroglycer 2019-0 No 1mg in 0.4 mg 8-20 sublingual 00:00: tablet 00 potassium 2019-0 No 1mEq chloride ER 8-20 10 mEq 00:00: tablet,exte 00 nded release ProAir HFA 2019-0 No 12mcg/a 90 8-20 ctuatio mcg/actuati 00:00: n on aerosol 00 inhaler furosemide 2019-0 No 1mg 40 mg 8-20 tablet 00:00: 00 Januvia 100 2019-0 No 1mg mg tablet 8-20 00:00: 00 aspirin 81 2019-0 No 1mg mg 8-20 tablet,agus 00:00: yed release 00 metformin 2019-0 No 1mg 1,000 mg 8-20 tablet 00:00: 00 cyclobenzap 2019-0 No 1mg rine 10 mg 8-20 tablet 00:00: 00 nitroglycer 2019-0 No 1mg in 0.4 mg 8-20 sublingual 00:00: tablet 00 potassium 2019-0 No 1mEq chloride ER 8-20 10 mEq 00:00: tablet,exte 00 nded release Tivicay 50 2019-0 No 1mg mg tablet 7 00:00: 00 Livalo 4 mg 2019-0 No 1mg tablet 7 00:00: 00 furosemide 2019-0 No 1mg 40 mg 7-06 tablet 00:00: 00 tramadol 50 2019-0 No 1mg mg tablet 7 00:00: 00 cyclobenzap 2019-0 No 1mg rine 10 mg 7-06 tablet 00:00: 00 ProAir HFA 2019-0 No 1mcg/ac 90 7-06 tuation mcg/actuati 00:00: on aerosol 00 inhaler Descovy 200 2019-0 No 1mg mg-25 mg 7-06 tablet 00:00: 00 Tivicay 50 2019-0 No 1mg mg tablet 7 00:00: 00 Livalo 4 mg 2019-0 No 1mg tablet 7 00:00: 00 furosemide 2019-0 No 1mg 40 mg 7-06 tablet 00:00: 00 tramadol 50 2019-0 No 1mg mg tablet 7 00:00: 00 cyclobenzap 2019-0 No 1mg rine 10 mg 7-06 tablet 00:00: 00 ProAir HFA 2019-0 No 1mcg/ac 90 7-06 tuation mcg/actuati 00:00: on aerosol 00 inhaler Descovy 200 2019-0 No 1mg mg-25 mg 7-06 tablet 00:00: 00 ProAir HFA 2019-0 No 1mcg/ac 90 706 tuation mcg/actuati 00:00: on aerosol 00 inhaler Descovy 200 2019-0 No 1mg mg-25 mg 7-06 tablet 00:00: 00 Tivicay 50 2019-0 No 1mg mg tablet 02-16 00:00: 00 Livalo 4 mg 2019-0 No 1mg tablet 02-16 00:00: 00 furosemide 2019-0 No 1mg 40 mg 7-06 tablet 00:00: 00 tramadol 50 2019-0 No 1mg mg tablet 02-16 00:00: 00 cyclobenzap 2019-0 No 1mg rine 10 mg 7-06 tablet 00:00: 00 metformin 2019-0 No 1mg 1,000 mg 7-05 tablet 00:00: 00 Januvia 100 2019-0 No 1mg mg tablet 7 00:00: 00 Jardiance 2019-0 No 1mg 25 mg 7-05 tablet 00:00: 00 metformin 2019-0 No 1mg 1,000 mg 7-05 tablet 00:00: 00 Januvia 100 2019-0 No 1mg mg tablet 7 00:00: 00 Jardiance 2019-0 No 1mg 25 mg 7-05 tablet 00:00: 00 nitroglycer 2019-0 No 1mg in 0.4 mg 7-05 sublingual 00:00: tablet 00 aspirin 81 2019-0 No 1mg mg 7-05 tablet,agus 00:00: yed release 00 nitroglycer 2019-0 No 1mg in 0.4 mg 7-05 sublingual 00:00: tablet 00 aspirin 81 2019-0 No 1mg mg 7-05 tablet,agus 00:00: yed release 00 metformin 2019-0 No 1mg 1,000 mg 7-05 tablet 00:00: 00 Januvia 100 2019-0 No 1mg mg tablet 7-05 00:00: 00 Jardiance 2019-0 No 1mg 25 mg 7-05 tablet 00:00: 00 nitroglycer 2019-0 No 1mg in 0.4 mg 7-05 sublingual 00:00: tablet 00 aspirin 81 2019-0 No 1mg mg 7-05 tablet,agus 00:00: yed release 00 Immunizations Ordered Filled Immunization Date Status Comments [facility] e Immunization Name Name Influenza Virus 2022-05-30 Completed [facility], 00:[facility] [place] [facility] Free 6 MO-64 YRS Influenza Virus 2022-05-30 Completed [facility], 00:00:00 [place] [facility] AB[facility] Free 6 MO-64 YRS Influenza Virus 2022-05-30 Completed [facility], 00:00:00 [place] [facility] ABX [facility] Free 6 MO-64 YRS Influenza Virus 2022-05-30 Completed [facility], 00:00:00 [place] [facility] ABX [facility] Free 6 MO-64 YRS Influenza Virus 2022-05-30 Completed [facility], 00:00:00 [place] [facility] ABX [facility] Free 6 MO-64 YRS Influenza Virus 2022-05-30 Completed [facility], 00:00:00 [place] [facility] ABX [facility] Free 6 MO-64 YRS Influenza Virus 2022-05-30 Completed [facility], 00:00:00 [place] [facility] AB[facility] Free 6 MO-64 YRS Influenza, 2021-06-23 Completed seasonal, inj 00:00:00 Influenza, 2021-06-23 Completed seasonal, inj 00:00:00 Influenza, 2021-06-23 Completed seasonal, inj 00:00:00 Influenza Virus 2020-07-24 Completed [facility] [...] y of ADULT 2 DOSE, IM 00:00:00 [facility] HEPLISAV HEP B, 2019-09-13 Completed [facility] ADULT 2 DOSE, IM 00:00:00 [facility] HEPLISAV HEP B, 2019-09-13 Completed [facility] ADULT 2 DOSE, IM 00:00:00 [facility] HEPLISAV HEP B, 2019-09-13 Completed [facility] ADULT 2 DOSE, IM 00:00:00 [facility] HEPLISAV HEP B, 2019-09-13 Completed [facility] ADULT 2 DOSE, IM 00:00:00 [facility] HEPLISAV HEP B, 2019-09-13 Completed [facility] ADULT 2 DOSE, IM 00:00:00 [facility] HEPLISAV HEP B, 2019-09-13 Completed [facility] ADULT 2 DOSE, IM 00:00:00 [facility] HEPLISAV HEP B, 2019-09-13 Completed [facility] ADULT 2 DOSE, IM 00:00:00 [facility] HEPLISAV HEP B, 2019-09-13 Completed [facility] ADULT 2 DOSE, IM 00:00:00 [facility] HEPLISAV HEP B, 2019-09-13 Completed [facility] ADULT 2 DOSE, IM 00:00:00 [facility] HEPLISAV HEP B, 2019-09-13 Completed [facility] ADULT 2 DOSE, IM 00:00:00 [facility] HEPLISAV HEP B, 2019-09-13 Completed [facility] ADULT 2 DOSE, IM 00:00:00 [facility] HEPLISAV HEP B, 2019-09-13 Completed [facility] ADULT 2 DOSE, IM 00:00:00 [facility] HEPLISAV HEP B, 2019-09-13 Completed [facility] ADULT 2 DOSE, IM 00:00:00 [facility] HEPLISAV HEP B, 2019-09-13 Completed [facility] ADULT 2 DOSE, IM 00:00:00 [facility] HEPLISAV HEP B, 2019-09-13 Completed [facility] ADULT 2 DOSE, IM 00:00:00 [facility] HEPLISAV HEP B, 2019-09-13 Completed [facility] ADULT 2 DOSE, IM 00:00:00 [facility] HEPLISAV HEP B, 2019-08-09 Completed [facility] ADULT 2 DOSE, IM 00:00:00 [facility] Hepatitis A Adult 2019-08-09 Completed [facility] 00:00:00 [facility] HEPLISAV HEP B, 2019-08-09 Completed [facility] of ADULT 2 DOSE, IM 00:00:00 [facility] Hepatitis A Adult 2019-08-09 Completed [facility] of 00:00:00 [facility] HEPLISAV HEP B, 2019-08-09 Completed [facility] of ADULT 2 DOSE, IM 00:00:00 [facility] Hepatitis A Adult 2019-08-09 Completed [facility] of 00:00:00 [facility] HEPLISAV HEP B, 2019-08-09 Completed [facility] of ADULT 2 DOSE, IM 00:00:00 [facility] Hepatitis A Adult 2019-08-09 Completed [facility] of 00:00:00 [facility] HEPLISAV HEP B, 2019-08-09 Completed [facility] of ADULT 2 DOSE, IM 00:00:00 [facility] Hepatitis A Adult 2019-08-09 Completed [facility] of 00:00:00 [facility] HEPLISAV HEP B, 2019-08-09 Completed [facility] of ADULT 2 DOSE, IM 00:00:00 [facility] Hepatitis A Adult 2019-08-09 Completed [facility] of 00:00:00 [facility] HEPLISAV HEP B, 2019-08-09 Completed [facility] of ADULT 2 DOSE, IM 00:00:00 [facility] Hepatitis A Adult 2019-08-09 Completed [facility] of 00:00:00 [facility] HEPLISAV HEP B, 2019-08-09 Completed [facility] of ADULT 2 DOSE, IM 00:00:00 [facility] Hepatitis A Adult 2019-08-09 Completed [facility] of 00:00:00 [facility] HEPLISAV HEP B, 2019-08-09 Completed [facility] of ADULT 2 DOSE, IM 00:00:00 [facility] Hepatitis A Adult 2019-08-09 Completed [facility] of 00:00:00 [facility] HEPLISAV HEP B, 2019-08-09 Completed [facility] of ADULT 2 DOSE, IM 00:00:00 [facility] Hepatitis A Adult 2019-08-09 Completed [facility] of 00:00:00 [facility] HEPLISAV HEP B, 2019-08-09 Completed [facility] of ADULT 2 DOSE, IM 00:00:00 [facility] Hepatitis A Adult 2019-08-09 Completed [facility] of 00:00:00 [facility] HEPLISAV HEP B, 2019-08-09 Completed [facility] of ADULT 2 DOSE, IM 00:00:00 [facility] Hepatitis A Adult 2019-08-09 Completed [facility] of 00:00:00 [facility] HEPLISAV HEP B, 2019-08-09 Completed [facility] of ADULT 2 DOSE, IM 00:00:00 [facility] Hepatitis A Adult 2019-08-09 Completed [facility] of 00:00:00 [facility] HEPLISAV HEP B, 2019-08-09 Completed [facility] of ADULT 2 DOSE, IM 00:00:00 [facility] Hepatitis A Adult 2019-08-09 Completed [facility]y of 00:00:00 [facility] HEPLISAV HEP B, 2019-08-09 Completed [facility] of ADULT 2 DOSE, IM 00:00:00 [facility] Hepatitis A Adult 2019-08-09 Completed [facility]y of 00:00:00 [facility] HEPLISAV HEP B, 2019-08-09 Completed [facility] of ADULT 2 DOSE, IM 00:00:00 [facility] Hepatitis A Adult 2019-08-09 Completed [facility] of 00:00:00 [facility] HEPLISAV HEP B, 2019-08-09 Completed [facility] of ADULT 2 DOSE, IM 00:00:00 [facility] Hepatitis A Adult 2019-08-09 Completed [facility] of 00:00:00 [facility] Influenza Virus 2019-05-10 Completed [facility] Vaccine [facility] .5 mL 00:00:00 [facility] 6+ [place] [facility] Influenza Virus 2019-05-10 Completed [facility] Vaccine [facility] .5 mL 00:00:00 [facility] IM 6+ [place] Branch Influenza Virus 2019-05-10 Completed [facility] y of Vaccine Quad .5 mL 00:00:00 [facility] 6+ MO Branch Influenza Virus 2019-05-10 Completed [facility] y of Vaccine Quad .5 mL 00:00:00 [facility] IM 6+ [place] Branch Influenza Virus 2019-05-10 Completed [facility] of Vaccine Quad .5 mL 00:00:00 [facility] 6+ MO Branch Influenza Virus 2019-05-10 Completed [facility] y of Vaccine Quad .5 mL 00:00:00 [facility] IM 6+ [place] Branch Influenza Virus 2019-05-10 Completed [facility] of Vaccine Quad .5 mL 00:00:00 [facility] 6+ [place] Branch Influenza Virus 2019-05-10 Completed [facility] of Vaccine Quad .5 mL 00:00:00 [facility] IM 6+ MO Branch Influenza Virus 2019-05-10 Completed Universit y of Vaccine Quad .5 mL 00:00:00 [facility] IM 6+ MO Branch Influenza Virus 2019-05-10 Completed Universit y of Vaccine Quad .5 mL 00:00:00 [facility] IM 6+ MO Branch Influenza Virus 2019-05-10 Completed Universit y of Vaccine Quad .5 mL 00:00:00 [facility] IM 6+ MO Branch Influenza Virus 2019-05-10 Completed Universit y of Vaccine Quad .5 mL 00:00:00 [facility] IM 6+ MO Branch Influenza Virus 2019-05-10 Completed Universit y of Vaccine Quad .5 mL 00:00:00 [facility] IM 6+ MO Branch Influenza Virus 2019-05-10 Completed Universit y of Vaccine Quad .5 mL 00:00:00 [facility] IM 6+ MO Branch Influenza Virus 2019-05-10 Completed Universit y of Vaccine Quad .5 mL 00:00:00 [facility] IM 6+ MO Branch Influenza Virus 2019-05-10 Completed Universit y of Vaccine Quad .5 mL 00:00:00 [facility] IM 6+ MO Branch Influenza Virus 2019-05-10 Completed Universit y of Vaccine Quad .5 mL 00:00:00 [facility] IM 6+ MO Branch Vital Signs Vital Name Observation Time Observation Value Comments Source Systolic blood 2022-05-30 16:45:00 124 mm[Hg] Univer sity of pressure [facility] Diastolic blood 2022-05-30 16:45:00 79 mm[Hg] Unive rsity of pressure [facility] Branch Heart rate 2022-05-30 16:45:00 68 /min [facility]i ty of [facility] [place] Respiratory rate 2022-05-30 16:45:00 20 /min Univ ersity of [facility] Branch Body height 2022-05-30 16:45:00 167.6 cm [facility] Body weight 2022-05-30 16:45:00 90.266 kg [facility] BMI 2022-05-30 16:45:00 32.12 kg/m2 [facility] Oxygen saturation in 2022-05-30 16:45:00 96 /min University of Arterial blood by [facility] Pulse oximetry Branch Systolic blood 2022-02-28 14:04:00 118 mm[Hg] Univer sity of pressure [facility] Diastolic blood 2022-02-28 14:04:00 78 mm[Hg] Unive rsity of pressure [facility] Heart rate 2022-02-28 14:04:00 80 /min [facility] Body height 2022-02-28 14:04:00 167.6 cm [facility] Body weight 2022-02-28 14:04:00 92.08 kg [facility] BMI 2022-02-28 14:04:00 32.77 kg/m2 [facility] Oxygen saturation in 2022-02-28 14:04:00 97 /min University of Arterial blood by [facility] Pulse oximetry Branch BP Systolic 2022-06-18 12:07:00 126 mm[Hg] BP Diastolic 2022-06-18 12:07:00 81 mm[Hg] Weight Measured 2022-06-18 12:07:00 203.00 pounds Height Measured 2022-06-18 12:07:00 69.25 inches Body Temperature 2022-06-18 12:07:00 98.30 degrees Heart Rate 2022-06-18 12:07:00 60.00 /min Respiratory Rate 2022-06-18 12:07:00 25.00 /min BP Systolic 2022-04-26 14:14:00 116 mm[Hg] BP Diastolic 2022-04-26 14:14:00 79 mm[Hg] Weight Measured 2022-04-26 14:14:00 434.31 pounds Height Measured 2022-04-26 14:14:00 Body Temperature 2022-04-26 14:14:00 98.30 degrees Heart Rate 2022-04-26 14:14:00 70.00 /min Respiratory Rate 2022-04-26 14:14:00 18.00 /min BP Systolic 2021-11-27 08:24:00 127 mm[Hg] BP Diastolic 2021-11-27 08:24:00 85 mm[Hg] Weight Measured 2021-11-27 08:24:00 202.00 pounds Height Measured 2021-11-27 08:24:00 69.25 inches Body Temperature 2021-11-27 08:24:00 98.00 degrees Heart Rate 2021-11-27 08:24:00 73.00 /min Respiratory Rate 2021-11-27 08:24:00 BP Systolic 2021-06-29 13:47:00 125 mm[Hg] BP Diastolic 2021-06-29 13:47:00 80 mm[Hg] Weight Measured 2021-06-29 13:47:00 203.00 pounds Height Measured 2021-06-29 13:47:00 69.25 inches Body Temperature 2021-06-29 13:47:00 98.30 degrees Heart Rate 2021-06-29 13:47:00 86.00 /min Respiratory Rate 2021-06-29 13:47:00 17.00 /min BP Systolic 2021-06-23 15:00:00 110 mm[Hg] BP Diastolic 2021-06-23 15:00:00 75 mm[Hg] Weight Measured 2021-06-23 15:00:00 202.20 pounds Height Measured 2021-06-23 15:00:00 69.25 inches Body Temperature 2021-06-23 15:00:00 98.40 degrees Heart Rate 2021-06-23 15:00:00 82.00 /min Respiratory Rate 2021-06-23 15:00:00 16.00 /min BP Systolic 2021-05-13 17:23:00 BP Diastolic 2021-05-13 17:23:00 Weight Measured 2021-05-13 17:23:00 218.00 pounds Height Measured 2021-05-13 17:23:00 69.25 inches Body Temperature 2021-05-13 17:23:00 Heart Rate 2021-05-13 17:23:00 Respiratory Rate 2021-05-13 17:23:00 BP Systolic 2021-02-24 10:29:00 142 mm[Hg] BP Diastolic 2021-02-24 10:29:00 86 mm[Hg] Weight Measured 2021-02-24 10:29:00 216.60 pounds Height Measured 2021-02-24 10:29:00 69.25 inches Body Temperature 2021-02-24 10:29:00 98.40 degrees Heart Rate 2021-02-24 10:29:00 95.00 /min Respiratory Rate 2021-02-24 10:29:00 16.00 /min BP Systolic 2021-01-13 09:20:00 128 mm[Hg] BP Diastolic 2021-01-13 09:20:00 79 mm[Hg] Weight Measured 2021-01-13 09:20:00 209.60 pounds Height Measured 2021-01-13 09:20:00 69.25 inches Body Temperature 2021-01-13 09:20:00 98.00 degrees Heart Rate 2021-01-13 09:20:00 91.00 /min Respiratory Rate 2021-01-13 09:20:00 16.00 /min BP Systolic 2020-10-21 10:31:00 126 mm[Hg] BP Diastolic 2020-10-21 10:31:00 85 mm[Hg] Weight Measured 2020-10-21 10:31:00 218.60 pounds Height Measured 2020-10-21 10:31:00 69.25 inches Body Temperature 2020-10-21 10:31:00 98.60 degrees Heart Rate 2020-10-21 10:31:00 98.00 /min Respiratory Rate 2020-10-21 10:31:00 16.00 /min BP Systolic 2020-06-10 09:11:00 144 mm[Hg] BP Diastolic 2020-06-10 09:11:00 91 mm[Hg] Weight Measured 2020-06-10 09:11:00 224.80 pounds Height Measured 2020-06-10 09:11:00 69.25 inches Body Temperature 2020-06-10 09:11:00 99.20 degrees Heart Rate 2020-06-10 09:11:00 105.00 /min Respiratory Rate 2020-06-10 09:11:00 17.00 /min Procedures Procedure Date / Time Performed Performing Clinician Sour e XR HIPS 3 VW LEFT 2022-06-10 17:06:[id number] 2022-05-30 17:15:43 Cher Pyle [facility] 6 MO-64 YRS, .5ML, Medical Branc h IM, QUAD (FLUCELVAX) Plan of Care Planned Activity Planned Date Details Comments Source Goal Plan of Care Note [code = 80920-9] Goal Plan of Care Note [code = 88265-5] Goal Plan of Care Note [code = 50397-2] Goal Plan of Care Note [code = 52538-2] Goal Plan of Care Note [code = 44126-6] Goal Plan of Care Note [code = 20104-6] Goal Plan of Care Note [code = 56052-8] Goal Plan of Care Note [code = 54044-1] Goal Plan of Care Note [code = 00043-1] Goal Plan of Care Note [code = 65752-9] Goal Plan of Care Note [code = 73505-0] Goal Plan of Care Note [code = 21986-6] Goal Plan of Care Note [code = 93263-2] Goal Plan of Care Note [code = 23811-6] Goal Plan of Care Note [code = 41460-9] Goal Plan of Care Note [code = 55537-4] Goal Plan of Care Note [code = 02072-0] Goal Plan of Care Note [code = 51506-7] Goal Plan of Care Note [code = 21878-0] Goal Plan of Care Note [code = 84036-5] Goal Plan of Care Note [code = 23963-5] Goal Plan of Care Note [code = 08753-5] Goal Plan of Care Note [code = 81122-7] Goal Plan of Care Note [code = 38900-8] Goal Plan of Care Note [code = 19593-7] Goal Plan of Care Note [code = 60981-9] Goal Plan of Care Note [code = 81903-9] Goal Plan of Care Note [code = 60392-5] Goal Plan of Care Note [code = 95789-6] Goal Plan of Care Note [code = 72269-3] Goal Plan of Care Note [code = 76853-1] Goal Plan of Care Note [code = 43883-1] Goal Plan of Care Note [code = 04417-7] Goal Plan of Care Note [code = 72239-9] Goal Plan of Care Note [code = 16557-9] Goal Plan of Care Note [code = 15527-9] Goal Plan of Care Note [code = 57868-3] Goal Plan of Care Note [code = 62157-2] Goal Plan of Care Note [code = 52786-7] Goal Plan of Care Note [code = 03559-1] Goal Plan of Care Note [code = 92791-8] Goal Plan of Care Note [code = 07199-3] Goal Plan of Care Note [code = 13745-2] Goal Plan of Care Note [code = 50537-9] Goal Plan of Care Note [code = 73563-5] Goal Plan of Care Note [code = 72220-8] Goal Plan of Care Note [code = 06735-7] Goal Plan of Care Note [code = 19325-6] Goal Plan of Care Note [code = 16684-5] Goal Plan of Care Note [code = 50935-6] Goal Plan of Care Note [code = 62243-1] Goal Plan of Care Note [code = 91631-7] Goal Plan of Care Note [code = 75585-1] Goal Plan of Care Note [code = 27254-2] Goal Plan of Care Note [code = 71525-8] Goal Plan of Care Note [code = 41153-9] Goal Plan of Care Note [code = 57900-3] Goal Plan of Care Note [code = 79827-8] Goal Plan of Care Note [code = 07214-3] Goal Plan of Care Note [code = 96680-9] Goal Plan of Care Note [code = 98251-0] Goal Plan of Care Note [code = 77312-3] Goal Plan of Care Note [code = 80979-8] Goal Plan of Care Note [code = 47353-6] Goal Plan of Care Note [code = 55465-9] Goal Plan of Care Note [code = 09472-8] Goal Plan of Care Note [code = 47964-1] Goal Plan of Care Note [code = 56968-0] Goal Plan of Care Note [code = 37969-8] Goal Plan of Care Note [code = 28232-4] Goal Plan of Care Note [code = 11024-9] Goal Plan of Care Note [code = 22147-5] Goal Plan of Care Note [code = 36277-1] Goal Plan of Care Note [code = 68222-4] Goal Plan of Care Note [code = 06469-4] Goal Plan of Care Note [code = 42168-7] Goal Plan of Care Note [code = 47421-3] Goal Plan of Care Note [code = 53643-5] Goal Plan of Care Note [code = 07483-7] Goal Plan of Care Note [code = 44634-5] Goal Plan of Care Note [code = 79329-2] Goal Plan of Care Note [code = 91496-5] Goal Plan of Care Note [code = 03391-1] Goal Plan of Care Note [code = 27685-4] Goal Plan of Care Note [code = 57380-5] Goal Plan of Care Note [code = 06046-5] Goal Plan of Care Note [code = 78705-6] Goal Plan of Care Note [code = 35942-7] Goal Plan of Care Note [code = 42346-8] Goal Plan of Care Note [code = 85775-3] Goal Plan of Care Note [code = 07292-6] Goal Plan of Care Note [code = 29829-7] Goal Plan of Care Note [code = 71024-6] Goal Plan of Care Note [code = 00378-7] Goal Plan of Care Note [code = 78325-1] Goal Plan of Care Note [code = 85131-6] Goal Plan of Care Note [code = 97516-1] Goal Plan of Care Note [code = 33791-4] Goal Plan of Care Note [code = 14063-4] Goal Plan of Care Note [code = 72413-2] Goal Plan of Care Note [code = 17824-7] Goal Plan of Care Note [code = 85669-2] Goal Plan of Care Note [code = 88905-7] Goal Plan of Care Note [code = 99676-3] Goal Plan of Care Note [code = 69828-9] Goal Plan of Care Note [code = 97607-7] Goal Plan of Care Note [code = 93324-4] Goal Plan of Care Note [code = 32564-8] Goal Plan of Care Note [code = 29363-1] Goal Plan of Care Note [code = 03373-3] Goal Plan of Care Note [code = 68210-9] Goal Plan of Care Note [code = 73689-9] Goal Plan of Care Note [code = 27478-3] Goal Plan of Care Note [code = 15321-1] Goal Plan of Care Note [code = 68946-9] Goal Plan of Care Note [code = 92058-4] Goal Plan of Care Note [code = 92990-1] Goal Plan of Care Note [code = 74380-6] Goal Plan of Care Note [code = 78871-8] Goal Plan of Care Note [code = 06645-2] Goal Plan of Care Note [code = 39341-5] Goal Plan of Care Note [code = 17982-0] Goal Plan of Care Note [code = 33969-1] Goal Plan of Care Note [code = 57639-0] Goal Plan of Care Note [code = 89865-3] Encounters Start End Encounter Admission Attending Care Care Encounter Source Date/Time Date/Time Type Type Clinicians Facility Department ID 2021-06-13 Inpatient MARCOS ECKERT [facility] [id number] [facility] 2022-12-09 Outpatient R RADHA [facility] [id number] Univers 09:00:00 09:00:00 ROBBY lima [facility] 2022-07-14 2022-07-14 [facility] [id number] Univers 00:00:00 00:00:00 Cher LINN 350.1.13.10 ity [facility] [place] [id number] Tn dical NAL [address] [place] [address] 2022-07-12 2022-07-12 Outpatient [id number] 00:00:00 00:00:00 Visit fj45-6445 s45-7997-4 -9243-c45 243-c45aa9 qi95v1ho1 8e6ac5 2022-07-06 2022-07-06 Outpatient SFA SFA [id number] 022 [place] 11:04:42 11:04:42 1123 [place] 2022-06-27 2022-06-27 Outpatient [id number] [id number] 00:00:00 00:00:00 Visit 40d2-2oo0 8b0-7qg5-2 -11f7-req 3b6-yhx535 [id number] 69b135 2022-06-22 2022-06-22 [facility]phone [facility] 1.2.585.246 [id number] Univers 00:00:00 00:00:00 Wale LINN 350.1.13.10 ity [facility] [place] [id number] Tn dical NAL 9 [facility] 2022-06-21 2022-06-21 Outpatient R EDENILSON [facility] [id number] Univers 08:16:08 08:17:00 CHER lima o f [facility] 2022-06-18 2022-06-18 Outpatient SFA SFA [id number] [place] 12:06:56 12:06:56 1105 F [place] 2022-06-18 2022-06-18 Outpatient [id number] 00:00:00 00:00:00 Visit zg7c-3444 h8t-5936-m -z925-y49 745-e46d6d [id number] 410c42 2022-06-11 2022-06-11 Outpatient SFA [facility] [id number] 022 G[place] 09:10:51 09:10:51 1029 F [place] 2022-06-10 2022-06-10 [facility] [id number] Univers 11:37:23 23:59:00 ROBBY ity [facility] 2022-06-10 2022-06-10 [facility] 1.2.840.114 [id number] Univers 11:37:23 23:59:00 Encounter [facility] 350.1.13.10 ity of [place] [id number] [facility] 807 Branch 2022-06-10 2022-06-10 Music Education Director [facility] UNIVERSIT 1.2.840.114 [id number] Univers 11:45:00 12:00:00 Visit [facility] 350.1.13.10 ity of [place] [id number] [facility] 316 Branch 2022-06-03 2022-06-03 Telephone [facility] 1.2.035.638 [id number] Univers 00:00:00 00:00:00 Cher LINN 350.1.13.10 ity of [place] [id number] [facility] 059 [facility] 2022-06-01 2022-06-[address] [facility] 1.2.840.114 [id number] Univers 00:00:00 00:00:00 [facility] 350.1.13.10 i ty of [place] [id number] [facility] 089 Branch 2022-05-30 2022-05-30 Outpatient R FORMERLY [facility] [id number] Univers 11:20:00 12:21:10 CHER lima o f [facility] 2022-05-30 2022-05-30 Office [facility] 1.2.840.114 [id number] Univers 11:20:00 12:21:10 Visit Cher LINN 350.1.13.10 ity of [facility] 4[place]2.7.2.[place] [phone] Tn dicme NAL 059 [facility] 2022-05-30 2022-05-30 Music Education Director 2, [facility] Lab [facility] 1.2.840.114 [id number] Univers 10:45:00 11:00:00 Visit Wale Cherry 350.1.13. 10 ity of [facility] 4[place]2.7.2.[place] [id number] Tn dicme NAL 353 [facility] 2022-05-27 2022-05-27 Outpatient R [facility] [id number] Univers 10:30:00 10:30:00 ity [facility] 2022-05-19 2022-05-19 Telephone [facility] [id number] Univers 00:00:00 00:00:00 Wale LINN 350.1.13.10 ity of [place] [id number] [facility] NAL [address] [place] [address] 2022-05-11 2022-05-11 [facility]ill [facility] 1.2.840.114 [id number] Univers 00:00:00 00:00:00 Wale LINN 350.1.13.10 ity of [facility] 4.2.7.2.[place] [id number] Tn dical NAL 9 [facility] 2022-05-06 2022-05-06 Outpatient [facility] [id number] Univers 09:30:00 09:30:00 ROBBY ity [facility] 2022-04-26 2022-04-26 Music Education Director [facility] UNIVERSIT 1.2.840.114 [id number] Univers 11:15:00 11:30:00 Visit Wale Cherry 350.1.13. [address] [facility] 4.2.7.2.[place] [id number] [facility] 316 Branch 2022-04-26 2022-04-26 Outpatient R JO ANN [facility] [id number] Univers 11:15:00 11:15:00 [facility] 2022-04-26 2022-04-26 Outpatient Jing CHERRY [facility] [id number] Univers 10:30:00 10:30:00 [facility] 2022-04-19 2022-04-19 Telephone [place], [place] 1.2.840.114 [id number] Univers 00:00:00 00:00:00 [facility] 350.1.13.10 i ty of [place] [id number] [facility] 089 Branch 2022-04-11 2022-04-11 Outpatient Jing RUSSELL [facility] [id number] Univers 10:00:00 10:00:00 BRISEIDA [facility] 2022-03-19 2022-03-19 Charity [facility] 1.2.840.114 [id number] Univers 00:00:00 00:00:00 [facility] Thu [facility].13.[facility] 4[place] [id number] [place] 556169 [facility] 2022-03-15 2022-03-15 Outpatient SHAY ANNE [facility] [id number] Univers 11:00:00 11:00:00 SHAY GOLDBERG [facility] 2022-03-10 2022-03-10 Outpatient Jing CHERRY [facility] [id number] Univers 00:00:00 00:00:00 SENDIL [facility] 2022-03-10 2022-03-10 Outpatient Jing CHERRY [facility] [id number] Univers 00:00:00 00:00:00 SENDIL [facility] 2022-03-04 2022-03-04 Outpatient Jing [facility] [id number] Univers 09:00:00 10:12:45 SENDIL ity [facility] 2022-03-04 2022-03-04 Outpatient R JO ANN [facility] [id number] Univers 09:00:00 10:12:45 SENDIL ity [facility] 2022-03-04 2022-03-04 Office Jo Ann [facility] 1.2.840.114 [id number] Univers 09:00:00 10:12:45 Visit Wale LINN 350.1.13.10 ity of [place] [id number] Tn luis enrique NAL 059 [facility] 2022-02-28 2022-02-28 Office Yusuf [facility] 1.2.840.114 [id number] Univers 09:20:00 09:26:58 Visit [facility] 350.1.13.10 ity [facility] 4.2.7.2.686 Aramis as HUGH?BLEA [id number] Tn dical KNEY 092 [facility] OFFICE [facility] 2022-02-28 2022-02-28 Outpatient R SHAY GOLDBERG [facility] [id number] Univers 09:20:00 09:26:58 YUSUFSHAY Kruger clarence [facility] 2022-02-28 2022-02-28 Outpatient R YUSUFSHAY MARINO [facility] [id number] Univers 09:20:00 09:26:58 YUSUFSHAY Kruger clarence [facility] 2022-02-28 2022-02-28 Outpatient R YUSUFSHAY [facility] [id number] Univers 09:20:00 09:20:00 SHAY GOLDBERG ximena [facility] 2022-02-28 2022-02-28 Orders Doctor GOINS 1.2.840.114 [id number] Univers 00:00:00 00:00:00 Only Unassigned, ROEL 350.1.13.10 ity of [facility] 4.2.7.2.686 Aramis as [id number] [address] 2022-02-25 2022-02-25 Refill Jo Ann [facility] 1.2.840.114 [id number] Univers 00:00:00 00:00:00 Sendil Thu LINN 350.1.13.10 ity of [facility] 4.2.7.2.[place] [id number] Tn dichina NAL 9 [facility] 2022-02-25 2022-02-25 [facility]phone [facility] 1.2.750.180 [id number] Univers 00:00:00 00:00:00 Sendil Thu LINN 350.1.13.10 ity of [place] [id number] Tn dichina NAL [address] [place] [address] 2022-02-25 2022-02-25 Telephone [facility] 1.2.840.114 [id number] Univers 00:00:00 00:00:00 [facility] 350.1.13.10 ity of [place] 4.2.7.2.686 Aramis as HUGH?BLEA [id number] Tn brianhina SANTOS 092 [facility] OFFICE [facility] 2021-12-10 2021-12-10 Outpatient R [facility] [id number] Univers 10:00:00 10:00:00 SENDIL ity [facility] 2021-12-10 2021-12-10 Outpatient R [facility] [id number] Univers 10:00:00 10:00:00 SENDIL ity [facility] 2021-12-09 2021-12-09 Telephone [facility] [id number] Univers 00:00:00 00:00:00 Jj KAVEH 350.1.13.10 i ty of [place] [id number] Tn dichina ANNA MARIE 9 [facility] 2021-10-19 2021-10-19 [facility]phone [facility] [id number] Univers 00:00:00 00:00:00 Sendsergio LINN 350.1.13.10 ity of [facility] 4.2.7.2.[place] [id number] [address] 2021-10-16 2021-10-16 [facility]ill [facility] 1.2.840.114 [id number] Univers 00:00:00 00:00:00 Sendil Thu LINN 350.1.13.10 ity of [place].2.[place] [id number] [address] 2021-10-12 2021-10-12 Outpatient Jing CHERRY [facility] [id number] Univers 10:00:00 10:00:00 SENDIL ity [facility] 2021-08-17 2021-08-17 Telephone AlysiaEVONNE 1.2.369.243 [id number] Univers 00:00:00 00:00:00 Jj ROEL 350.1.13.10 it y of HOSPITAL 4.2.7.2.686 Aramis as [id number] [address] 2021-07-29 2021-07-29 Outpatient Jing [facility] [id number] Univers 13:00:00 13:00:00 JJ ity [facility] 2021-07-28 2021-07-[address] [facility] 1.2.737.034 [id number] Univers 00:00:00 00:00:00 Jj HEALTH 350.1.13.10 it y of [place] GARCIA [id number] [address] ([facility]) 2021-07-28 2021-07-[address] [facility] 1.2.173.729 [id number] Univers 00:00:00 00:00:00 Jj HEALTH 350.1.13.10 it y of [place] [id number] [address] ([facility]) 2021-07-06 2021-07-06 Outpatient Jing [facility] [id number] Univers 08:00:00 23:59:00 JJ ity [facility] 2021-07-06 2021-07-06 [facility] [id number] Univers 08:00:00 23:59:00 Encounter Jj [place] [id number] ity of [facility] [id number] [id number] Tn dical NAL 846 [facility] 2021-07-06 2021-07-06 Outpatient R ALYSIA [facility] [id number] Univers 08:00:00 08:00:00 JJ ity [facility] 2021-06-29 2021-06-29 Outpatient R ALYSIA [facility] [id number] Univers 08:20:00 09:09:21 JJ ity of [facility] 2021-06-29 2021-06-29 Outpatient R ALYSIA [facility] [id number] Univers 08:20:00 09:09:21 JJ ity [facility] 2021-06-29 2021-06-29 Outpatient R ALYSIA [facility] [id number] Univers 08:20:00 09:09:21 JJ ity [facility] 2021-06-29 2021-06-29 Office [facility] [id number] Univers 08:13:57 09:09:21 Visit Jj [place] [id number] i ty of [id number] [id number] Tn dicme NAL 059 [facility] 2021-06-10 2021-06-10 Office Jo Ann [facility] [id number] Univers 10:12:34 10:44:46 Visit Sendil KNolanHNolan [place] [id number] ity [id number] [id number] Tn dical NAL 059 [facility] 2021-06-10 2021-06-10 Outpatient R JO ANN [facility] [id number] Univers 10:00:00 10:44:46 SENDIL ity [facility] 2021-06-10 2021-06-10 [facility] [facility] [id number] Univers 10:00:00 10:44:46 SENDIL ity [facility] 2021-06-10 2021-06-10 Outpatient R JO ANN [facility] [id number] Univers 10:00:00 10:44:46 SENDIL ity [facility] 2021-06-08 2021-06-08 [facility] [id number] Univers 08:00:00 23:59:00 Encounter (Tech), Ang-Db Emg/Ncv Testing [facility] [id number] ity diego [place] [id number] Aramis as Hugh?Blea [phone] Tn dical kney 038 [facility] 2021-06-08 2021-06-08 [facility] [id number] Univers 08:00:00 23:59:00 [facility] ity o [facility] 2021-06-08 2021-06-08 Outpatient [facility] [id number] Univers 08:00:00 23:59:00 [facility] 2021-06-02 2021-06-02 [facility] [id number] Univers 00:00:00 00:00:00 Sendil Thu [place] [id number] [id number] [phone] Tn dical [facility] [address] [facility] 2021-04-27 2021-04-27 Outpatient Jing HATFIELD [facility] [id number] Univers 14:00:00 14:00:00 JJ ity [facility] 2021-04-27 2021-04-27 Outpatient Jing [facility] [id number] Univers 11:20:00 11:20:00 JJ ity [facility] 2021-03-17 2021-03-17 Outpatient Jing CHERRY [facility] [id number] Univers 09:00:00 23:59:00 SENDIL ity [facility] 2021-03-17 2021-03-17 Outpatient Jing CHERRY [facility] [id number] Univers 09:00:00 09:00:00 SENDIL ity [facility] 2021-03-16 2021-03-16 Outpatient SHAY ANNE [facility] [id number] Univers 08:40:00 10:18:17 SHAY GOLDBERG ximena [facility] 2021-03-16 2021-03-16 Outpatient SHAY ANNE [facility] [id number] Univers 08:40:00 08:40:00 SHAY GOLDBERG ximena [facility] 2021-03-09 2021-03-09 Outpatient SHAY ANNE [facility] [id number] Univers 13:40:00 13:40:00 SHAY GOLDBERG [facility] 2021-03-04 2021-03-04 Outpatient Jing CHERRY [facility] [id number] Univers 08:00:00 08:00:00 [facility] 2021-03-04 Outpatient Jing CHERRY [facility] [id number] Univers 08:00:00 08:00:00 [facility] 2021-02-26 2021-02-26 Outpatient Jing SIERRA [facility] [id number] Univers 09:12:48 23:59:00 [facility] 2021-02-26 2021-02-26 Outpatient Jing SIERRA [facility] [id number] Univers 09:15:00 09:15:00 [facility] 2021-02-05 2021-02-05 Outpatient Jing CHERRY [facility] [id number] Univers 09:00:00 09:00:00 SENDIL ity [facility] 2020-12-28 2020-12-28 Outpatient R JO ANN [facility] [id number] Univers 09:30:00 09:30:00 [facility] 2020-12-24 2020-12-24 Outpatient R MARCOS ECKERT [facility] [id number] Univers 15:30:00 15:35:10 ity [facility] 2020-12-24 2020-12-24 Outpatient R [facility] [id number] Univers 14:30:00 14:30:00 ity [facility] 2020-12-17 2020-12-17 Outpatient R [facility] [id number] Univers 14:15:00 14:15:[facility] 2020-[facility]-30 2020-12-07 Inpatient R MARCOS ECKERT [facility] [id number] Univers 06:44:00 19:20:[facility] 2020-[facility]-30 2020-11-30 Surgery Evonne [id number] 07:15:00 15:03:00 Roel [id number] [facility] [phone] [id number] 2020-11-30 2020-11-30 Orders Doctor BRISEIDA [id number] 00:00:00 00:00:00 Only Unassigned, ROEL [id number] [place] [id number] [id number] 2020-11-26 2020-11-26 Laboratory Only, [facility] [id number] 09:39:58 09:54:58 Only Test [place] [id number] [place] [id number] [place] [id number] [id number] 2020-11-26 2020-11-26 Outpatient R [facility] [id number] Univers 09:45:00 09:45:00 [facility] 2020-11-23 2020-11-23 Outpatient R CHIQUITA [facility] [id number] Univers 10:00:00 10:00:00 NORMAN [facility] 2020-11-20 2020-11-20 Outpatient R RADHA [facility] [id number] Univers 10:00:00 10:00:00 ROBBY [facility] 2020-11-20 2020-11-20 Outpatient Jing HYDE [facility] [id number] Univers 10:00:00 10:00:00 ROBBY [facility] 2020-11-13 2020-11-13 Outpatient R MARCOS ECKERT [facility] [id number] Univers 12:06:38 23:59:00 ity [facility] 2020-11-13 2020-11-13 Outpatient R [facility] [id number] Univers 08:00:00 08:00:00 ity [facility] 2020-11-13 2020-11-13 Telephone Evonne [place] [id number] 00:00:00 00:00:00 Freeman Bailony [id number] [id number] [id number] 2020-11-10 2020-11-10 Outpatient R [facility] [id number] Univers 10:30:00 10:30:00 [facility] 2020-10-28 2020-10-28 [facility] [id number] 08:48:15 09:36:28 Visit Wale [place] [id number] [place] [id number] Jay [phone] nal 059 [facility] 2020-10-28 2020-10-28 [facility] [id number] Univers 09:00:00 [facility]00[facility]-10-[facility] 2020-10-23 Outpatient R RADHA [facility] [id number] Univers 14:00:00 14:00:00 [facility] 2020-10-15 2020-10-15 Outpatient R CHIQUITA [facility] [id number] Univers 14:45:00 16:52:22 NORMAN ity [facility] 2020-10-15 2020-10-15 Outpatient R CHIQUITA [facility] [id number] Univers 14:45:00 14:45:00 NORMAN ity [facility] 2020-09-24 2020-09-24 Outpatient R CHIQUITA [facility] [id number] Univers 08:30:00 09:40:43 NORMAN ity [facility] 2020-09-24 2020-09-24 Outpatient R CHIQUITA [facility] [id number] Univers 08:30:00 08:30:00 NORMAN ity [facility] 2020-09-10 2020-09-10 Outpatient R CHERRY [facility] [id number] Univers 09:00:00 09:00:00 SENDIL ity [facility] 2020-09-10 2020-09-10 Outpatient R JO ANN [facility] [id number] Univers 09:00:00 09:00:00 SENDIL ity [facility] 2020-08-21 2020-08-21 Outpatient R JO ANN [facility] [id number] Univers 10:00:00 10:00:00 SENDIL ity [facility] 2020-08-04 2020-08-04 Outpatient R [facility] [id number] Univers 07:00:00 07:00:00 ity [facility] 2020-07-24 2020-07-24 [facility] [id number] Univers 14:00:00 14:00:00 [facility] 2020-07-23 2020-07-23 Outpatient R [facility] [id number] Univers 08:00:00 08:00:00 ity [facility] 2020-07-18 2020-07-18 Outpatient R [facility] [id number] Univers 08:00:00 08:00:00 ity [facility] 2020-07-17 2020-07-17 [facility] [id number] Univers 09:30:00 09:30:00 [facility] 2020-05-26 2020-05-26 Outpatient R RADHA [facility] [id number] Univers 08:30:00 08:30:00 [facility] 2020-04-13 2020-04-13 Outpatient R JO ANN [facility] [id number] Univers 11:30:00 11:30:00 SENDND ity [facility] 2020-02-03 2020-02-03 [facility] [id number] Univers 09:00:00 09:00:00 [facility] 2020-02-03 2020-02-03 [facility] [id number] Univers 08:15:00 08:15:00 [facility] 2020-01-13 2020-01-13 Outpatient R RADHA [facility] [id number] Univers 09:30:00 09:30:00 ROBBY [facility] 2019-11-21 2019-11-21 Outpatient R RADHA [facility] [id number] Univers 11:00:00 11:00:00 [facility] 2019-11-01 2019-11-01 Outpatient R RADHA [facility] [id number] Univers 08:30:00 08:30:00 [facility] 2019-11-01 2019-11-01 Outpatient R RADHA [facility] [id number] Univers 08:30:00 08:30:00 [facility] 2019-10-07 2019-10-07 Outpatient R RADHA [facility] [id number] Univers 08:30:00 08:30:00 [facility] 2019-10-07 2019-10-07 Outpatient R RADHA [facility] [id number] Univers 08:30:00 08:30:00 [facility] 2019-09-13 2019-09-13 Outpatient R RADHA [facility] [id number] Univers 08:30:00 08:30:00 [facility] 2019-08-09 2019-08-09 Outpatient R RADHA [facility] [id number] Univers 10:00:00 10:48:17 [facility] 2019-05-10 2019-05-10 Outpatient R RADHA [facility] [id number] Univers 15:30:00 15:30:00 [facility] Results Test Description Test Time Test Comments Results Result Comments Source H. PYLORI (BREATH) 2022-07-07 00:00:00 Test Item Value Reference Range Interpretation Comme nts H. PYLORI (BREATH) (test code = 47570) POSITIVE H. PYLORI (BREATH)2022-07-07 00:00:00 Test Item Value Reference Range Interpretation Comments H. PYLORI (BREATH) (test code = POSITIVE 83732) TROPONIN [id number] 00:00:00 Test Item Value Reference Range Interpretation Comments TROPONIN T (test code = 4017) 13 NG/L TROPONIN [id number] 00:00:00 Test Item Value Reference Range Interpretation Comments TROPONIN T (test code = 4017) 13 NG/L CK, [id number] 00:00:00 Test Item Value Reference Range Interpretation Comments CK, TOTAL (test code = 2013) 66 U/L CK, [id number] 00:00:00 Test Item Value Reference Range Interpretation Comments CK, TOTAL (test code = 2013) 66 U/L VITAMIN D, 25 [id number] 00:00:00 Test Item Value Reference Range Interpretation Comments VITAMIN D, 25 OH (test code = 4958) 14 NG/ML VITAMIN D, 25 [id number] 00:00:00 Test Item Value Reference Range Interpretation Comments VITAMIN D, 25 OH (test code = 4958) 14 NG/ML VITAMIN D, 25 [id number] 00:00:00 Test Item Value Reference Range Interpretation Comments VITAMIN D, 25 OH (test code = 4958) 14 NG/ML VITAMIN D, 25 [id number] 00:00:00 Test Item Value Reference Range Interpretation Comments VITAMIN D, 25 OH (test code = 4958) 14 NG/ML LIPID [id number] 00:00:00 Test Item Value Reference Range Interpretation Comments CHOLESTEROL (test code = 2210) 93 MG/DL TRIGLYCERIDES (test code = 2232) 408 MG/DL HDL CHOLESTEROL (test code = 23 MG/DL 2220) CALC LDL CHOL (test code = 2237) (NOTE) MG/DL RISK RATIO LDL/HDL (test code = (NOTE) RATIO 2238) LIPID [id number] 00:00:00 Test Item Value Reference Range Interpretation Comments CHOLESTEROL (test code = 2210) 93 MG/DL TRIGLYCERIDES (test code = 2232) 408 MG/DL HDL CHOLESTEROL (test code = 23 MG/DL 2220) CALC LDL CHOL (test code = 2237) (NOTE) MG/DL RISK RATIO LDL/HDL (test code = (NOTE) RATIO 2238) COMPREHENSIVE METABOLIC [id number] 00:00:00 Test Item Value Reference Range Interpretation Comments GLUCOSE (test code = 2217) 224 MG/DL BUN (test code = 2208) 10 MG/DL CREATININE (test code = 2214) 1.01 MG/DL eGFR (2020 CKD-EPI) (test code 93 ML/MIN/1.73 = 32756) CALC BUN/CREAT (test code = 10 RATIO 2235) SODIUM (test code = 2231) 141 MEQ/L POTASSIUM (test code = 2228) 4.0 MEQ/L CHLORIDE (test code = 2215) 101 MEQ/L CARBON DIOXIDE (test code = 22 MEQ/L 2206) CALCIUM (test code = 2209) 9.4 MG/DL PROTEIN, TOTAL (test code = 7.0 G/DL 222) ALBUMIN (test code = 2201) 4.9 G/DL CALC GLOBULIN (test code = 2.1 G/DL 2240) CALC A/G RATIO (test code = 2.3 RATIO 2234) BILIRUBIN, TOTAL (test code = 0.4 MG/DL 2206) ALKALINE PHOSPHATASE (test 73 U/L code = 2204) AST (test code = 2218) 11 U/L ALT (test code = 2219) 15 U/L COMPREHENSIVE METABOLIC [id number] 00:00:00 Test Item Value Reference Range Interpretation Comments GLUCOSE (test code = 2217) 224 MG/DL BUN (test code = 2208) 10 MG/DL CREATININE (test code = 2214) 1.01 MG/DL eGFR (2020 CKD-EPI) (test code 93 ML/MIN/1.73 = 89144) CALC BUN/CREAT (test code = 10 RATIO 2235) SODIUM (test code = 2231) 141 MEQ/L POTASSIUM (test code = 2228) 4.0 MEQ/L CHLORIDE (test code = 2215) 101 MEQ/L CARBON DIOXIDE (test code = 22 MEQ/L 2206) CALCIUM (test code = 2209) 9.4 MG/DL PROTEIN, TOTAL (test code = 7.0 G/DL 2229) ALBUMIN (test code = 2201) 4.9 G/DL CALC GLOBULIN (test code = 2.1 G/DL 2240) CALC A/G RATIO (test code = 2.3 RATIO 2234) BILIRUBIN, TOTAL (test code = 0.4 MG/DL 7) ALKALINE PHOSPHATASE (test 73 U/L code = 2204) AST (test code = 2218) 11 U/L ALT (test code = 2219) 15 U/L LIPID [id number] 00:00:00 Test Item Value Reference Range Interpretation Comments CHOLESTEROL (test code = 2210) 93 MG/DL TRIGLYCERIDES (test code = 2232) 408 MG/DL HDL CHOLESTEROL (test code = 23 MG/DL 2220) CALC LDL CHOL (test code = 2237) (NOTE) MG/DL RISK RATIO LDL/HDL (test code = (NOTE) RATIO 2238) LIPID [id number] 00:00:00 Test Item Value Reference Range Interpretation Comments CHOLESTEROL (test code = 2210) 93 MG/DL TRIGLYCERIDES (test code = 2232) 408 MG/DL HDL CHOLESTEROL (test code = 23 MG/DL 2220) CALC LDL CHOL (test code = 2237) (NOTE) MG/DL RISK RATIO LDL/HDL (test code = (NOTE) RATIO 2238) COMPREHENSIVE METABOLIC [id number] 00:00:00 Test Item Value Reference Range Interpretation Comments GLUCOSE (test code = 2217) 224 MG/DL BUN (test code = 2208) 10 MG/DL CREATININE (test code = 2214) 1.01 MG/DL eGFR (2020 CKD-EPI) (test code 93 ML/MIN/1.73 = 31280) CALC BUN/CREAT (test code = 10 RATIO 2235) SODIUM (test code = 2231) 141 MEQ/L POTASSIUM (test code = 2228) 4.0 MEQ/L CHLORIDE (test code = 2215) 101 MEQ/L CARBON DIOXIDE (test code = 22 MEQ/L 6) CALCIUM (test code = 2209) 9.4 MG/DL PROTEIN, TOTAL (test code = 7.0 G/DL 2228) ALBUMIN (test code = 2201) 4.9 G/DL CALC GLOBULIN (test code = 2.1 G/DL 2240) CALC A/G RATIO (test code = 2.3 RATIO 2234) BILIRUBIN, TOTAL (test code = 0.4 MG/DL 2206) ALKALINE PHOSPHATASE (test 73 U/L code = 2204) AST (test code = 2218) 11 U/L ALT (test code = 2219) 15 U/L COMPREHENSIVE METABOLIC [id number] 00:00:00 Test Item Value Reference Range Interpretation Comments GLUCOSE (test code = 2217) 224 MG/DL BUN (test code = 2208) 10 MG/DL CREATININE (test code = 2214) 1.01 MG/DL eGFR (2020 CKD-EPI) (test code 93 ML/MIN/1.73 = 85072) CALC BUN/CREAT (test code = 10 RATIO 2235) SODIUM (test code = 2231) 141 MEQ/L POTASSIUM (test code = 2228) 4.0 MEQ/L CHLORIDE (test code = 2215) 101 MEQ/L CARBON DIOXIDE (test code = 22 MEQ/L 2205) CALCIUM (test code = 2209) 9.4 MG/DL PROTEIN, TOTAL (test code = 7.0 G/DL 2228) ALBUMIN (test code = 2201) 4.9 G/DL CALC GLOBULIN (test code = 2.1 G/DL 2239) CALC A/G RATIO (test code = 2.3 RATIO 2233) BILIRUBIN, TOTAL (test code = 0.4 MG/DL 2206) ALKALINE PHOSPHATASE (test 73 U/L code = 2204) AST (test code = 2218) 11 U/L ALT (test code = 2219) 15 U/L CBC W/AUTO [id number] 00:00:00 Test Item Value Reference Range Interpretation Comments WBC (test code = 1001) 5.4 K/UL RBC (test code = 1002) 5.43 M/UL HEMOGLOBIN (test code = 1003) 17.8 G/DL HEMATOCRIT (test code = 1004) 50.1 % MCV (test code = 1005) 92.3 fL MCH (test code = 1006) 32.8 PG MCHC (test code = 1007) 35.5 G/DL RDW (test code = 1038) 12.3 % NEUTROPHILS (test code = 1008) 60.7 % LYMPHOCYTES (test code = 1010) 25.5 % MONOCYTES (test code = 1011) 11.3 % EOSINOPHILS (test code = 1012) 1.5 % BASOPHILS (test code = 1013) 0.6 % IMMATURE GRANULOCYTES (test 0.4 % code = 1036) NUCLEATED RBCS (test code = 0.0 /100WBC'S 1065) PLATELET COUNT (test code = 131 K/UL 1015) ABSOLUTE NEUTROPHILS (test code 3.29 K/UL = 1066) ABSOLUTE LYMPHOCYTES (test code 1.38 K/UL = 1067) ABSOLUTE MONOCYTES (test code = 0.61 K/UL 1068) ABSOLUTE EOSINOPHILS (test code 0.08 K/UL = 1040) ABSOLUTE BASOPHILS (test code = 0.03 K/UL 1069) ABS IMMATURE GRANULOCYTES (test 0.02 K/UL code = 1020) ABS NUCLEATED RBCS (test code = 0.00 K/UL 26310) CBC W/AUTO [id number] 00:00:00 Test Item Value Reference Range Interpretation Comments WBC (test code = 1001) 5.4 K/UL RBC (test code = 1002) 5.43 M/UL HEMOGLOBIN (test code = 1003) 17.8 G/DL HEMATOCRIT (test code = 1004) 50.1 % MCV (test code = 1005) 92.3 fL MCH (test code = 1006) 32.8 PG MCHC (test code = 1007) 35.5 G/DL RDW (test code = 1038) 12.3 % NEUTROPHILS (test code = 1008) 60.7 % LYMPHOCYTES (test code = 1010) 25.5 % MONOCYTES (test code = 1011) 11.3 % EOSINOPHILS (test code = 1012) 1.5 % BASOPHILS (test code = 1013) 0.6 % IMMATURE GRANULOCYTES (test 0.4 % code = 1036) NUCLEATED RBCS (test code = 0.0 /100WBC'S 1065) PLATELET COUNT (test code = 131 K/UL 1015) ABSOLUTE NEUTROPHILS (test code 3.29 K/UL = 1066) ABSOLUTE LYMPHOCYTES (test code 1.38 K/UL = 1067) ABSOLUTE MONOCYTES (test code = 0.61 K/UL 1068) ABSOLUTE EOSINOPHILS (test code 0.08 K/UL = 1040) ABSOLUTE BASOPHILS (test code = 0.03 K/UL 1069) ABS IMMATURE GRANULOCYTES (test 0.02 K/UL code = 1020) ABS NUCLEATED RBCS (test code = 0.00 K/UL 59379) CBC W/AUTO [id number] 00:00:00 Test Item Value Reference Range Interpretation Comments WBC (test code = 1001) 5.4 K/UL RBC (test code = 1002) 5.43 M/UL HEMOGLOBIN (test code = 1003) 17.8 G/DL HEMATOCRIT (test code = 1004) 50.1 % MCV (test code = 1005) 92.3 fL MCH (test code = 1006) 32.8 PG MCHC (test code = 1007) 35.5 G/DL RDW (test code = 1038) 12.3 % NEUTROPHILS (test code = 1008) 60.7 % LYMPHOCYTES (test code = 1010) 25.5 % MONOCYTES (test code = 1011) 11.3 % EOSINOPHILS (test code = 1012) 1.5 % BASOPHILS (test code = 1013) 0.6 % IMMATURE GRANULOCYTES (test 0.4 % code = 1036) NUCLEATED RBCS (test code = 0.0 /100WBC'S 1065) PLATELET COUNT (test code = 131 K/UL 1015) ABSOLUTE NEUTROPHILS (test code 3.29 K/UL = 1066) ABSOLUTE LYMPHOCYTES (test code 1.38 K/UL = 1067) ABSOLUTE MONOCYTES (test code = 0.61 K/UL 1068) ABSOLUTE EOSINOPHILS (test code 0.08 K/UL = 1040) ABSOLUTE BASOPHILS (test code = 0.03 K/UL 1069) ABS IMMATURE GRANULOCYTES (test 0.02 K/UL code = 1020) ABS NUCLEATED RBCS (test code = 0.00 K/UL 36567) HEMOGLOBIN [id number] 00:00:00 Test Item Value Reference Range Interpretation Comments HEMOGLOBIN A1c (test code = 20185) 6.5 % HEMOGLOBIN [id number] 00:00:00 Test Item Value Reference Range Interpretation Comments HEMOGLOBIN A1c (test code = 72280) 6.5 % HEMOGLOBIN [id number] 00:00:00 Test Item Value Reference Range Interpretation Comments HEMOGLOBIN A1c (test code = 18897) 6.5 % CBC W/AUTO [id number] 00:00:00 Test Item Value Reference Range Interpretation Comments WBC (test code = 1001) 5.4 K/UL RBC (test code = 1002) 5.43 M/UL HEMOGLOBIN (test code = 1003) 17.8 G/DL HEMATOCRIT (test code = 1004) 50.1 % MCV (test code = 1005) 92.3 fL MCH (test code = 1006) 32.8 PG MCHC (test code = 1007) 35.5 G/DL RDW (test code = 1038) 12.3 % NEUTROPHILS (test code = 1008) 60.7 % LYMPHOCYTES (test code = 1010) 25.5 % MONOCYTES (test code = 1011) 11.3 % EOSINOPHILS (test code = 1012) 1.5 % BASOPHILS (test code = 1013) 0.6 % IMMATURE GRANULOCYTES (test 0.4 % code = 1036) NUCLEATED RBCS (test code = 0.0 /100WBC'S 1065) PLATELET COUNT (test code = 131 K/UL 1015) ABSOLUTE NEUTROPHILS (test code 3.29 K/UL = 1066) ABSOLUTE LYMPHOCYTES (test code 1.38 K/UL = 1067) ABSOLUTE MONOCYTES (test code = 0.61 K/UL 1068) ABSOLUTE EOSINOPHILS (test code 0.08 K/UL = 1040) ABSOLUTE BASOPHILS (test code = 0.03 K/UL 1069) ABS IMMATURE GRANULOCYTES (test 0.02 K/UL code = 1020) ABS NUCLEATED RBCS (test code = 0.00 K/UL 99250) CBC W/AUTO [id number] 00:00:00 Test Item Value Reference Range Interpretation Comments WBC (test code = 1001) 5.4 K/UL RBC (test code = 1002) 5.43 M/UL HEMOGLOBIN (test code = 1003) 17.8 G/DL HEMATOCRIT (test code = 1004) 50.1 % MCV (test code = 1005) 92.3 fL MCH (test code = 1006) 32.8 PG MCHC (test code = 1007) 35.5 G/DL RDW (test code = 1038) 12.3 % NEUTROPHILS (test code = 1008) 60.7 % LYMPHOCYTES (test code = 1010) 25.5 % MONOCYTES (test code = 1011) 11.3 % EOSINOPHILS (test code = 1012) 1.5 % BASOPHILS (test code = 1013) 0.6 % IMMATURE GRANULOCYTES (test 0.4 % code = 1036) NUCLEATED RBCS (test code = 0.0 /100WBC'S 1065) PLATELET COUNT (test code = 131 K/UL 1015) ABSOLUTE NEUTROPHILS (test code 3.29 K/UL = 1066) ABSOLUTE LYMPHOCYTES (test code 1.38 K/UL = 1067) ABSOLUTE MONOCYTES (test code = 0.61 K/UL 1068) ABSOLUTE EOSINOPHILS (test code 0.08 K/UL = 1040) ABSOLUTE BASOPHILS (test code = 0.03 K/UL 1069) ABS IMMATURE GRANULOCYTES (test 0.02 K/UL code = 1020) ABS NUCLEATED RBCS (test code = 0.00 K/UL 85030) CBC W/AUTO [id number] 00:00:00 Test Item Value Reference Range Interpretation Comments WBC (test code = 1001) 5.4 K/UL RBC (test code = 1002) 5.43 M/UL HEMOGLOBIN (test code = 1003) 17.8 G/DL HEMATOCRIT (test code = 1004) 50.1 % MCV (test code = 1005) 92.3 fL MCH (test code = 1006) 32.8 PG MCHC (test code = 1007) 35.5 G/DL RDW (test code = 1038) 12.3 % NEUTROPHILS (test code = 1008) 60.7 % LYMPHOCYTES (test code = 1010) 25.5 % MONOCYTES (test code = 1011) 11.3 % EOSINOPHILS (test code = 1012) 1.5 % BASOPHILS (test code = 1013) 0.6 % IMMATURE GRANULOCYTES (test 0.4 % code = 1036) NUCLEATED RBCS (test code = 0.0 /100WBC'S 1065) PLATELET COUNT (test code = 131 K/UL 1015) ABSOLUTE NEUTROPHILS (test code 3.29 K/UL = 1066) ABSOLUTE LYMPHOCYTES (test code 1.38 K/UL = 1067) ABSOLUTE MONOCYTES (test code = 0.61 K/UL 1068) ABSOLUTE EOSINOPHILS (test code 0.08 K/UL = 1040) ABSOLUTE BASOPHILS (test code = 0.03 K/UL 1069) ABS IMMATURE GRANULOCYTES (test 0.02 K/UL code = 1020) ABS NUCLEATED RBCS (test code = 0.00 K/UL 90412) HEMOGLOBIN [id number] 00:00:00 Test Item Value Reference Range Interpretation Comments HEMOGLOBIN A1c (test code = 24661) 6.5 % HEMOGLOBIN [id number] 00:00:00 Test Item Value Reference Range Interpretation Comments HEMOGLOBIN A1c (test code = 63877) 6.5 % HEMOGLOBIN [id number] 00:00:00 Test Item Value Reference Range Interpretation Comments HEMOGLOBIN A1c (test code = 63267) 6.5 % CD4/CD8 LYMPHOCYTE [id number] 15:42:29 Test Item Value Reference Range Interpretation Comments ABSOLUTE LYMPHOCYTES (test code = 1718 PER UL [id number] 44169) PERCENT CD4 (test code = 80057) 24.0 % 34.0-65.0 L ABSOLUTE CD4 (test code = 00040) 413 PER UL 520-1470 L PERCENT CD8 (test code = 32754) 56.7 % 13.0-38.0 H ABSOLUTE CD8 (test code = 50485) 973 PER UL 205-920 H CD4/CD8 RATIO (test code = 10943) 0.42 0.92-3.41 L HEMOGLOBIN [id number] 06:58:19 Test Item Value Reference Range Interpretation Comments HEMOGLOBIN A1c (test 6.5 % 4.2-5.6 H [employer] DIABETES code = 03706) ASSOCIATION [employer] FOR HGB A1C: PREDIABETES/INC REASED RISK . . . . . . . 5.7 -6.4% DIAGNOSIS OF DI ABETES . . . . . . . . . >=6 .5% WITH CONFIRMATION OR APPROPRIATE SYMPTOMS NOTE: ASSAY MAY BE AFFECTED BY HEMOGLOBINOPATH IES (SICKLE CELL ANEMIA, S- C DISEASE, OTHERS) OR RADHA FICIALLY LOWERED BY DECR EASED RED CELL SURVIVAL ( HEMOLYTIC ANEMIAS, BLOOD LOSS, ETC.). CONSIDER ALTERN ATE TESTING OR LABORATORY C ONSULTATION. UNLESS OTHERWIS E INDICATED, ALL TESTING PER [facility], [facility]. [address] [place] [address] LABORATORY DIRE CTOR: COBY SANCHEZ M.D. CLIA NUMBER [id number] [facility] [place]. [id number] CBC W/AUTO DIFF WITH [id number] 06:22:08 Test Item Value Reference Range Interpretation Comments WBC (test code = 6.4 K/UL 3.5-11.0 1001) RBC (test code = 5.82 M/UL 4.50-6.10 1002) HEMOGLOBIN (test code 18.7 G/DL 13.5-17.0 H = 1003) HEMATOCRIT (test code 54.2 % 40.0-51.0 H = 1004) MCV (test code = 93.1 fL 80.0-99.0 1005) MCH (test code = 32.1 PG 25.0-33.0 1006) MCHC (test code = 34.5 G/DL 31.0-36.0 1007) RDW (test code = 12.7 % 11.5-15.0 1038) NEUTROPHILS (test 59.9 % code = 1008) LYMPHOCYTES (test 28.1 % code = 1010) MONOCYTES (test code 10.0 % = 1011) EOSINOPHILS (test 1.1 % code = 1012) BASOPHILS (test code 0.6 % = 1013) IMMATURE GRANULOCYTES 0.3 % (test code = 1036) NUCLEATED RBCS (test 0.0 /100 WBC'S See_Comment [Aut omated code = 1065) message] The sy stem which generated this result transmitted reference range : 0.0. The refere nce range was not u sed to interpret th is result as normal/abnormal . PLATELET COUNT (test 145 K/UL 130-400 code = 1015) ABSOLUTE NEUTROPHILS 3.83 K/UL 1.50-7.50 (test code = 1066) ABSOLUTE LYMPHOCYTES 1.80 K/UL 1.00-4.00 (test code = 1067) ABSOLUTE MONOCYTES 0.64 K/UL 0.20-1.00 (test code = 1068) ABSOLUTE EOSINOPHILS 0.07 K/UL 0.00-0.50 (test code = 1040) ABSOLUTE BASOPHILS 0.04 K/UL 0.00-0.20 (test code = 1069) ABS IMMATURE 0.02 K/UL 0.00-0.10 GRANULOCYTES (test code = 1020) ABS NUCLEATED RBCS 0.00 K/UL 0.00-0.11 (test code = 57887) LIPID [id number] 04:34:32 Test Item Value Reference Range Interpretation Comments CHOLESTEROL (test 111 MG/DL <200 code = 2210) TRIGLYCERIDES (test 245 MG/DL <150 H code = 2232) HDL CHOLESTEROL (test 28 MG/DL >39 L code = 2220) CALC LDL CHOL (test 52 MG/DL <100 NOTE: C ALCULATED LDL code = 2237) IS BASED ON ONDINA-CORREA METHOD WHICHINCLUDES ADJUSTABLE TRIGLYCERIDE:VL DL CHOLESTEROL RAT IO.THIS FACTOR VARIES B Y MEASURED TRIGLY CERIDE AND NON-HDLCHOL ESTEROL CONCENTRATIONS WITH INCREASED CALCU LATED LDL SEENIN HIGH ER TRIGLYCERIDE OR LOWER NON-HDL SPECIME NS. FOR MOREINFORMATION , SEE CLIENT ANNOUNCE MENT AT [email or web address] RISK RATIO LDL/HDL 1.86 RATIO <3.55 (test code = 2238) COMPREHENSIVE METABOLIC [id number] 04:34:32 Test Item Value Reference Range Interpretation Comments GLUCOSE (test code = 91 MG/DL 70-99 2216) BUN (test code = 15 MG/DL 6-20 2207) CREATININE (test 1.15 MG/DL 0.80-1.40 code = 221) eGFR (2020 CKD-EPI) 79 ML/MIN/1.73 >60 (test code = 55582) CALC BUN/CREAT (test 13 RATIO 6-28 code = 223) SODIUM (test code = 143 MEQ/L 327-988 4991) POTASSIUM (test code 4.2 MEQ/L 3.5-5.4 = 2227) CHLORIDE (test code 104 MEQ/L 95-107 = 2214) CARBON DIOXIDE (test 24 MEQ/L 19-31 code = 220) CALCIUM (test code = 10.3 MG/DL 8.5-10.5 2208) PROTEIN, TOTAL (test 7.6 G/DL 6.1-8.3 code = 2228) ALBUMIN (test code = 5.1 G/DL 3.5-5.2 2200) CALC GLOBULIN (test 2.5 G/DL 1.9-3.7 code = 224) CALC A/G RATIO (test 2.0 RATIO 1.0-2.6 code = 223) BILIRUBIN, TOTAL 0.5 MG/DL See_Comment [Automated message] (test code = 220) The syste m which generated this result transmit lilia reference range : <=1.2. The refe rence range was not u sed to interpret th is result as normal/abnormal . ALKALINE PHOSPHATASE 46 U/L 40-118 (test code = 2203) AST (test code = 13 U/L 9-50 2217) ALT (test code = 16 U/L 5-50 2218) LIPID [id number] 00:00:00 Test Item Value Reference Range Interpretation Comments CHOLESTEROL (test code = 2210) 111 MG/DL TRIGLYCERIDES (test code = 2232) 245 MG/DL HDL CHOLESTEROL (test code = 2220) 28 MG/DL CALC LDL CHOL (test code = 2237) 52 MG/DL RISK RATIO LDL/HDL (test code = 1.86 RATIO 8) LIPID [id number] 00:00:00 Test Item Value Reference Range Interpretation Comments CHOLESTEROL (test code = 2210) 111 MG/DL TRIGLYCERIDES (test code = 2232) 245 MG/DL HDL CHOLESTEROL (test code = 2220) 28 MG/DL CALC LDL CHOL (test code = 2237) 52 MG/DL RISK RATIO LDL/HDL (test code = 1.86 RATIO 2238) COMPREHENSIVE METABOLIC [id number] 00:00:00 Test Item Value Reference Range Interpretation Comments GLUCOSE (test code = 2217) 91 MG/DL BUN (test code = 2208) 15 MG/DL CREATININE (test code = 2214) 1.15 MG/DL eGFR (2020 CKD-EPI) (test code 79 ML/MIN/1.73 = 46672) CALC BUN/CREAT (test code = 13 RATIO 2235) SODIUM (test code = 2231) 143 MEQ/L POTASSIUM (test code = 2228) 4.2 MEQ/L CHLORIDE (test code = 2215) 104 MEQ/L CARBON DIOXIDE (test code = 24 MEQ/L 2205) CALCIUM (test code = 2209) 10.3 MG/DL PROTEIN, TOTAL (test code = 7.6 G/DL 2228) ALBUMIN (test code = 2201) 5.1 G/DL CALC GLOBULIN (test code = 2.5 G/DL 2239) CALC A/G RATIO (test code = 2.0 RATIO 2233) BILIRUBIN, TOTAL (test code = 0.5 MG/DL 2206) ALKALINE PHOSPHATASE (test 46 U/L code = 2204) AST (test code = 2218) 13 U/L ALT (test code = 2219) 16 U/L COMPREHENSIVE METABOLIC [id number] 00:00:00 Test Item Value Reference Range Interpretation Comments GLUCOSE (test code = 2217) 91 MG/DL BUN (test code = 2208) 15 MG/DL CREATININE (test code = 2214) 1.15 MG/DL eGFR (2020 CKD-EPI) (test code 79 ML/MIN/1.73 = 59959) CALC BUN/CREAT (test code = 13 RATIO 2235) SODIUM (test code = 2231) 143 MEQ/L POTASSIUM (test code = 2228) 4.2 MEQ/L CHLORIDE (test code = 2215) 104 MEQ/L CARBON DIOXIDE (test code = 24 MEQ/L 2205) CALCIUM (test code = 2209) 10.3 MG/DL PROTEIN, TOTAL (test code = 7.6 G/DL 2229) ALBUMIN (test code = 2201) 5.1 G/DL CALC GLOBULIN (test code = 2.5 G/DL 2240) CALC A/G RATIO (test code = 2.0 RATIO 2234) BILIRUBIN, TOTAL (test code = 0.5 MG/DL 2207) ALKALINE PHOSPHATASE (test 46 U/L code = 2204) AST (test code = 2218) 13 U/L ALT (test code = 2219) 16 U/L CBC W/AUTO [id number] 00:00:00 Test Item Value Reference Range Interpretation Comments WBC (test code = 1001) 6.4 K/UL RBC (test code = 1002) 5.82 M/UL HEMOGLOBIN (test code = 1003) 18.7 G/DL HEMATOCRIT (test code = 1004) 54.2 % MCV (test code = 1005) 93.1 fL MCH (test code = 1006) 32.1 PG MCHC (test code = 1007) 34.5 G/DL RDW (test code = 1038) 12.7 % NEUTROPHILS (test code = 1008) 59.9 % LYMPHOCYTES (test code = 1010) 28.1 % MONOCYTES (test code = 1011) 10.0 % EOSINOPHILS (test code = 1012) 1.1 % BASOPHILS (test code = 1013) 0.6 % IMMATURE GRANULOCYTES (test 0.3 % code = 1036) NUCLEATED RBCS (test code = 0.0 /100WBC'S 1065) PLATELET COUNT (test code = 145 K/UL 1015) ABSOLUTE NEUTROPHILS (test code 3.83 K/UL = 1066) ABSOLUTE LYMPHOCYTES (test code 1.80 K/UL = 1067) ABSOLUTE MONOCYTES (test code = 0.64 K/UL 1068) ABSOLUTE EOSINOPHILS (test code 0.07 K/UL = 1040) ABSOLUTE BASOPHILS (test code = 0.04 K/UL 1069) ABS IMMATURE GRANULOCYTES (test 0.02 K/UL code = 1020) ABS NUCLEATED RBCS (test code = 0.00 K/UL 67235) CBC W/AUTO [id number] 00:00:00 Test Item Value Reference Range Interpretation Comments WBC (test code = 1001) 6.4 K/UL RBC (test code = 1002) 5.82 M/UL HEMOGLOBIN (test code = 1003) 18.7 G/DL HEMATOCRIT (test code = 1004) 54.2 % MCV (test code = 1005) 93.1 fL MCH (test code = 1006) 32.1 PG MCHC (test code = 1007) 34.5 G/DL RDW (test code = 1038) 12.7 % NEUTROPHILS (test code = 1008) 59.9 % LYMPHOCYTES (test code = 1010) 28.1 % MONOCYTES (test code = 1011) 10.0 % EOSINOPHILS (test code = 1012) 1.1 % BASOPHILS (test code = 1013) 0.6 % IMMATURE GRANULOCYTES (test 0.3 % code = 1036) NUCLEATED RBCS (test code = 0.0 /100WBC'S 1065) PLATELET COUNT (test code = 145 K/UL 1015) ABSOLUTE NEUTROPHILS (test code 3.83 K/UL = 1066) ABSOLUTE LYMPHOCYTES (test code 1.80 K/UL = 1067) ABSOLUTE MONOCYTES (test code = 0.64 K/UL 1068) ABSOLUTE EOSINOPHILS (test code 0.07 K/UL = 1040) ABSOLUTE BASOPHILS (test code = 0.04 K/UL 1069) ABS IMMATURE GRANULOCYTES (test 0.02 K/UL code = 1020) ABS NUCLEATED RBCS (test code = 0.00 K/UL 06339) CBC W/AUTO [id number] 00:00:00 Test Item Value Reference Range Interpretation Comments WBC (test code = 1001) 6.4 K/UL RBC (test code = 1002) 5.82 M/UL HEMOGLOBIN (test code = 1003) 18.7 G/DL HEMATOCRIT (test code = 1004) 54.2 % MCV (test code = 1005) 93.1 fL MCH (test code = 1006) 32.1 PG MCHC (test code = 1007) 34.5 G/DL RDW (test code = 1038) 12.7 % NEUTROPHILS (test code = 1008) 59.9 % LYMPHOCYTES (test code = 1010) 28.1 % MONOCYTES (test code = 1011) 10.0 % EOSINOPHILS (test code = 1012) 1.1 % BASOPHILS (test code = 1013) 0.6 % IMMATURE GRANULOCYTES (test 0.3 % code = 1036) NUCLEATED RBCS (test code = 0.0 /100WBC'S 1065) PLATELET COUNT (test code = 145 K/UL 1015) ABSOLUTE NEUTROPHILS (test code 3.83 K/UL = 1066) ABSOLUTE LYMPHOCYTES (test code 1.80 K/UL = 1067) ABSOLUTE MONOCYTES (test code = 0.64 K/UL 1068) ABSOLUTE EOSINOPHILS (test code 0.07 K/UL = 1040) ABSOLUTE BASOPHILS (test code = 0.04 K/UL 1069) ABS IMMATURE GRANULOCYTES (test 0.02 K/UL code = 1020) ABS NUCLEATED RBCS (test code = 0.00 K/UL 65536) CD4/CD8 LYMPHOCYTE [id number] 00:00:00 Test Item Value Reference Range Interpretation Comments ABSOLUTE LYMPHOCYTES (test code = 1718 PERUL 69818) PERCENT CD4 (test code = 74694) 24.0 % ABSOLUTE CD4 (test code = 27049) 413 PERUL PERCENT CD8 (test code = 40847) 56.7 % ABSOLUTE CD8 (test code = 15876) 973 PERUL CD4/CD8 RATIO (test code = 56170) 0.42 CD4/CD8 LYMPHOCYTE [id number] 00:00:00 Test Item Value Reference Range Interpretation Comments ABSOLUTE LYMPHOCYTES (test code = 1718 PERUL 03145) PERCENT CD4 (test code = 36447) 24.0 % ABSOLUTE CD4 (test code = 07376) 413 PERUL PERCENT CD8 (test code = 90071) 56.7 % ABSOLUTE CD8 (test code = 22514) 973 PERUL CD4/CD8 RATIO (test code = 43279) 0.42 HEMOGLOBIN [id number] 00:00:00 Test Item Value Reference Range Interpretation Comments HEMOGLOBIN A1c (test code = 60910) 6.5 % HEMOGLOBIN [id number] 00:00:00 Test Item Value Reference Range Interpretation Comments HEMOGLOBIN A1c (test code = 97662) 6.5 % HEMOGLOBIN [id number] 00:00:00 Test Item Value Reference Range Interpretation Comments HEMOGLOBIN A1c (test code = 54111) 6.5 % LIPID [id number] 00:00:00 Test Item Value Reference Range Interpretation Comments CHOLESTEROL (test code = 2210) 111 MG/DL TRIGLYCERIDES (test code = 2232) 245 MG/DL HDL CHOLESTEROL (test code = 2220) 28 MG/DL CALC LDL CHOL (test code = 2237) 52 MG/DL RISK RATIO LDL/HDL (test code = 1.86 RATIO 2238) LIPID [id number] 00:00:00 Test Item Value Reference Range Interpretation Comments CHOLESTEROL (test code = 2210) 111 MG/DL TRIGLYCERIDES (test code = 2232) 245 MG/DL HDL CHOLESTEROL (test code = 2220) 28 MG/DL CALC LDL CHOL (test code = 2237) 52 MG/DL RISK RATIO LDL/HDL (test code = 1.86 RATIO 2238) COMPREHENSIVE METABOLIC [id number] 00:00:00 Test Item Value Reference Range Interpretation Comments GLUCOSE (test code = 2217) 91 MG/DL BUN (test code = 2208) 15 MG/DL CREATININE (test code = 2214) 1.15 MG/DL eGFR (2020 CKD-EPI) (test code 79 ML/MIN/1.73 = 41410) CALC BUN/CREAT (test code = 13 RATIO 2235) SODIUM (test code = 2231) 143 MEQ/L POTASSIUM (test code = 2228) 4.2 MEQ/L CHLORIDE (test code = 2215) 104 MEQ/L CARBON DIOXIDE (test code = 24 MEQ/L 2205) CALCIUM (test code = 2209) 10.3 MG/DL PROTEIN, TOTAL (test code = 7.6 G/DL 2228) ALBUMIN (test code = 2201) 5.1 G/DL CALC GLOBULIN (test code = 2.5 G/DL 0) CALC A/G RATIO (test code = 2.0 RATIO 4) BILIRUBIN, TOTAL (test code = 0.5 MG/DL 2206) ALKALINE PHOSPHATASE (test 46 U/L code = 2204) AST (test code = 2218) 13 U/L ALT (test code = 2219) 16 U/L COMPREHENSIVE METABOLIC [id number] 00:00:00 Test Item Value Reference Range Interpretation Comments GLUCOSE (test code = 2217) 91 MG/DL BUN (test code = 2208) 15 MG/DL CREATININE (test code = 2214) 1.15 MG/DL eGFR (2020 CKD-EPI) (test code 79 ML/MIN/1.73 = 13043) CALC BUN/CREAT (test code = 13 RATIO 2235) SODIUM (test code = 2231) 143 MEQ/L POTASSIUM (test code = 2228) 4.2 MEQ/L CHLORIDE (test code = 2215) 104 MEQ/L CARBON DIOXIDE (test code = 24 MEQ/L 2205) CALCIUM (test code = 2209) 10.3 MG/DL PROTEIN, TOTAL (test code = 7.6 G/DL 2228) ALBUMIN (test code = 2201) 5.1 G/DL CALC GLOBULIN (test code = 2.5 G/DL 0) CALC A/G RATIO (test code = 2.0 RATIO 2233) BILIRUBIN, TOTAL (test code = 0.5 MG/DL 2206) ALKALINE PHOSPHATASE (test 46 U/L code = 2204) AST (test code = 2218) 13 U/L ALT (test code = 2219) 16 U/L CBC W/AUTO [id number] 00:00:00 Test Item Value Reference Range Interpretation Comments WBC (test code = 1001) 6.4 K/UL RBC (test code = 1002) 5.82 M/UL HEMOGLOBIN (test code = 1003) 18.7 G/DL HEMATOCRIT (test code = 1004) 54.2 % MCV (test code = 1005) 93.1 fL MCH (test code = 1006) 32.1 PG MCHC (test code = 1007) 34.5 G/DL RDW (test code = 1038) 12.7 % NEUTROPHILS (test code = 1008) 59.9 % LYMPHOCYTES (test code = 1010) 28.1 % MONOCYTES (test code = 1011) 10.0 % EOSINOPHILS (test code = 1012) 1.1 % BASOPHILS (test code = 1013) 0.6 % IMMATURE GRANULOCYTES (test 0.3 % code = 1036) NUCLEATED RBCS (test code = 0.0 /100WBC'S 1065) PLATELET COUNT (test code = 145 K/UL 1015) ABSOLUTE NEUTROPHILS (test code 3.83 K/UL = 1066) ABSOLUTE LYMPHOCYTES (test code 1.80 K/UL = 1067) ABSOLUTE MONOCYTES (test code = 0.64 K/UL 1068) ABSOLUTE EOSINOPHILS (test code 0.07 K/UL = 1040) ABSOLUTE BASOPHILS (test code = 0.04 K/UL 1069) ABS IMMATURE GRANULOCYTES (test 0.02 K/UL code = 1020) ABS NUCLEATED RBCS (test code = 0.00 K/UL 25515) CBC W/AUTO [id number] 00:00:00 Test Item Value Reference Range Interpretation Comments WBC (test code = 1001) 6.4 K/UL RBC (test code = 1002) 5.82 M/UL HEMOGLOBIN (test code = 1003) 18.7 G/DL HEMATOCRIT (test code = 1004) 54.2 % MCV (test code = 1005) 93.1 fL MCH (test code = 1006) 32.1 PG MCHC (test code = 1007) 34.5 G/DL RDW (test code = 1038) 12.7 % NEUTROPHILS (test code = 1008) 59.9 % LYMPHOCYTES (test code = 1010) 28.1 % MONOCYTES (test code = 1011) 10.0 % EOSINOPHILS (test code = 1012) 1.1 % BASOPHILS (test code = 1013) 0.6 % IMMATURE GRANULOCYTES (test 0.3 % code = 1036) NUCLEATED RBCS (test code = 0.0 /100WBC'S 1065) PLATELET COUNT (test code = 145 K/UL 1015) ABSOLUTE NEUTROPHILS (test code 3.83 K/UL = 1066) ABSOLUTE LYMPHOCYTES (test code 1.80 K/UL = 1067) ABSOLUTE MONOCYTES (test code = 0.64 K/UL 1068) ABSOLUTE EOSINOPHILS (test code 0.07 K/UL = 1040) ABSOLUTE BASOPHILS (test code = 0.04 K/UL 1069) ABS IMMATURE GRANULOCYTES (test 0.02 K/UL code = 1020) ABS NUCLEATED RBCS (test code = 0.00 K/UL 95716) CBC W/AUTO [id number] 00:00:00 Test Item Value Reference Range Interpretation Comments WBC (test code = 1001) 6.4 K/UL RBC (test code = 1002) 5.82 M/UL HEMOGLOBIN (test code = 1003) 18.7 G/DL HEMATOCRIT (test code = 1004) 54.2 % MCV (test code = 1005) 93.1 fL MCH (test code = 1006) 32.1 PG MCHC (test code = 1007) 34.5 G/DL RDW (test code = 1038) 12.7 % NEUTROPHILS (test code = 1008) 59.9 % LYMPHOCYTES (test code = 1010) 28.1 % MONOCYTES (test code = 1011) 10.0 % EOSINOPHILS (test code = 1012) 1.1 % BASOPHILS (test code = 1013) 0.6 % IMMATURE GRANULOCYTES (test 0.3 % code = 1036) NUCLEATED RBCS (test code = 0.0 /100WBC'S 1065) PLATELET COUNT (test code = 145 K/UL 1015) ABSOLUTE NEUTROPHILS (test code 3.83 K/UL = 1066) ABSOLUTE LYMPHOCYTES (test code 1.80 K/UL = 1067) ABSOLUTE MONOCYTES (test code = 0.64 K/UL 1068) ABSOLUTE EOSINOPHILS (test code 0.07 K/UL = 1040) ABSOLUTE BASOPHILS (test code = 0.04 K/UL 1069) ABS IMMATURE GRANULOCYTES (test 0.02 K/UL code = 1020) ABS NUCLEATED RBCS (test code = 0.00 K/UL 22530) CD4/CD8 LYMPHOCYTE [id number] 00:00:00 Test Item Value Reference Range Interpretation Comments ABSOLUTE LYMPHOCYTES (test code = 1718 PERUL 56439) PERCENT CD4 (test code = 91883) 24.0 % ABSOLUTE CD4 (test code = 03715) 413 PERUL PERCENT CD8 (test code = 68139) 56.7 % ABSOLUTE CD8 (test code = 75517) 973 PERUL CD4/CD8 RATIO (test code = 57404) 0.42 CD4/CD8 LYMPHOCYTE [id number] 00:00:00 Test Item Value Reference Range Interpretation Comments ABSOLUTE LYMPHOCYTES (test code = 1718 PERUL 60316) PERCENT CD4 (test code = 63450) 24.0 % ABSOLUTE CD4 (test code = 12551) 413 PERUL PERCENT CD8 (test code = 41091) 56.7 % ABSOLUTE CD8 (test code = 24714) 973 PERUL CD4/CD8 RATIO (test code = 62575) 0.42 HEMOGLOBIN [id number] 00:00:00 Test Item Value Reference Range Interpretation Comments HEMOGLOBIN A1c (test code = 98853) 6.5 % HEMOGLOBIN [id number] 00:00:00 Test Item Value Reference Range Interpretation Comments HEMOGLOBIN A1c (test code = 69613) 6.5 % HEMOGLOBIN [id number] 00:00:00 Test Item Value Reference Range Interpretation Comments HEMOGLOBIN A1c (test code = 62384) 6.5 % LIPID [id number] 00:00:00 Test Item Value Reference Range Interpretation Comments CHOLESTEROL (test code = 2210) 111 MG/DL TRIGLYCERIDES (test code = 2232) 245 MG/DL HDL CHOLESTEROL (test code = 2220) 28 MG/DL CALC LDL CHOL (test code = 2237) 52 MG/DL RISK RATIO LDL/HDL (test code = 1.86 RATIO 2238) LIPID [id number] 00:00:00 Test Item Value Reference Range Interpretation Comments CHOLESTEROL (test code = 2210) 111 MG/DL TRIGLYCERIDES (test code = 2232) 245 MG/DL HDL CHOLESTEROL (test code = 2220) 28 MG/DL CALC LDL CHOL (test code = 2237) 52 MG/DL RISK RATIO LDL/HDL (test code = 1.86 RATIO 2238) COMPREHENSIVE METABOLIC [id number] 00:00:00 Test Item Value Reference Range Interpretation Comments GLUCOSE (test code = 2217) 91 MG/DL BUN (test code = 2208) 15 MG/DL CREATININE (test code = 2214) 1.15 MG/DL eGFR (2020 CKD-EPI) (test code 79 ML/MIN/1.73 = 02885) CALC BUN/CREAT (test code = 13 RATIO 2235) SODIUM (test code = 2231) 143 MEQ/L POTASSIUM (test code = 2228) 4.2 MEQ/L CHLORIDE (test code = 2215) 104 MEQ/L CARBON DIOXIDE (test code = 24 MEQ/L 6) CALCIUM (test code = 2209) 10.3 MG/DL PROTEIN, TOTAL (test code = 7.6 G/DL 2228) ALBUMIN (test code = 2201) 5.1 G/DL CALC GLOBULIN (test code = 2.5 G/DL 2240) CALC A/G RATIO (test code = 2.0 RATIO 2234) BILIRUBIN, TOTAL (test code = 0.5 MG/DL 2206) ALKALINE PHOSPHATASE (test 46 U/L code = 2204) AST (test code = 2218) 13 U/L ALT (test code = 2219) 16 U/L COMPREHENSIVE METABOLIC [id number] 00:00:00 Test Item Value Reference Range Interpretation Comments GLUCOSE (test code = 2217) 91 MG/DL BUN (test code = 2208) 15 MG/DL CREATININE (test code = 2214) 1.15 MG/DL eGFR (2020 CKD-EPI) (test code 79 ML/MIN/1.73 = 39703) CALC BUN/CREAT (test code = 13 RATIO 2234) SODIUM (test code = 2231) 143 MEQ/L POTASSIUM (test code = 2228) 4.2 MEQ/L CHLORIDE (test code = 2215) 104 MEQ/L CARBON DIOXIDE (test code = 24 MEQ/L 2205) CALCIUM (test code = 2209) 10.3 MG/DL PROTEIN, TOTAL (test code = 7.6 G/DL 2228) ALBUMIN (test code = 2201) 5.1 G/DL CALC GLOBULIN (test code = 2.5 G/DL 224) CALC A/G RATIO (test code = 2.0 RATIO 2233) BILIRUBIN, TOTAL (test code = 0.5 MG/DL 2206) ALKALINE PHOSPHATASE (test 46 U/L code = 220) AST (test code = 2218) 13 U/L ALT (test code = 2219) 16 U/L CBC W/AUTO [id number] 00:00:00 Test Item Value Reference Range Interpretation Comments WBC (test code = 1001) 6.4 K/UL RBC (test code = 1002) 5.82 M/UL HEMOGLOBIN (test code = 1003) 18.7 G/DL HEMATOCRIT (test code = 1004) 54.2 % MCV (test code = 1005) 93.1 fL MCH (test code = 1006) 32.1 PG MCHC (test code = 1007) 34.5 G/DL RDW (test code = 1038) 12.7 % NEUTROPHILS (test code = 1008) 59.9 % LYMPHOCYTES (test code = 1010) 28.1 % MONOCYTES (test code = 1011) 10.0 % EOSINOPHILS (test code = 1012) 1.1 % BASOPHILS (test code = 1013) 0.6 % IMMATURE GRANULOCYTES (test 0.3 % code = 1036) NUCLEATED RBCS (test code = 0.0 /100WBC'S 1065) PLATELET COUNT (test code = 145 K/UL 1015) ABSOLUTE NEUTROPHILS (test code 3.83 K/UL = 1066) ABSOLUTE LYMPHOCYTES (test code 1.80 K/UL = 1067) ABSOLUTE MONOCYTES (test code = 0.64 K/UL 1068) ABSOLUTE EOSINOPHILS (test code 0.07 K/UL = 1040) ABSOLUTE BASOPHILS (test code = 0.04 K/UL 1069) ABS IMMATURE GRANULOCYTES (test 0.02 K/UL code = 1020) ABS NUCLEATED RBCS (test code = 0.00 K/UL 88087) CBC W/AUTO [id number] 00:00:00 Test Item Value Reference Range Interpretation Comments WBC (test code = 1001) 6.4 K/UL RBC (test code = 1002) 5.82 M/UL HEMOGLOBIN (test code = 1003) 18.7 G/DL HEMATOCRIT (test code = 1004) 54.2 % MCV (test code = 1005) 93.1 fL MCH (test code = 1006) 32.1 PG MCHC (test code = 1007) 34.5 G/DL RDW (test code = 1038) 12.7 % NEUTROPHILS (test code = 1008) 59.9 % LYMPHOCYTES (test code = 1010) 28.1 % MONOCYTES (test code = 1011) 10.0 % EOSINOPHILS (test code = 1012) 1.1 % BASOPHILS (test code = 1013) 0.6 % IMMATURE GRANULOCYTES (test 0.3 % code = 1036) NUCLEATED RBCS (test code = 0.0 /100WBC'S 1065) PLATELET COUNT (test code = 145 K/UL 1015) ABSOLUTE NEUTROPHILS (test code 3.83 K/UL = 1066) ABSOLUTE LYMPHOCYTES (test code 1.80 K/UL = 1067) ABSOLUTE MONOCYTES (test code = 0.64 K/UL 1068) ABSOLUTE EOSINOPHILS (test code 0.07 K/UL = 1040) ABSOLUTE BASOPHILS (test code = 0.04 K/UL 1069) ABS IMMATURE GRANULOCYTES (test 0.02 K/UL code = 1020) ABS NUCLEATED RBCS (test code = 0.00 K/UL 63273) CBC W/AUTO [id number] 00:00:00 Test Item Value Reference Range Interpretation Comments WBC (test code = 1001) 6.4 K/UL RBC (test code = 1002) 5.82 M/UL HEMOGLOBIN (test code = 1003) 18.7 G/DL HEMATOCRIT (test code = 1004) 54.2 % MCV (test code = 1005) 93.1 fL MCH (test code = 1006) 32.1 PG MCHC (test code = 1007) 34.5 G/DL RDW (test code = 1038) 12.7 % NEUTROPHILS (test code = 1008) 59.9 % LYMPHOCYTES (test code = 1010) 28.1 % MONOCYTES (test code = 1011) 10.0 % EOSINOPHILS (test code = 1012) 1.1 % BASOPHILS (test code = 1013) 0.6 % IMMATURE GRANULOCYTES (test 0.3 % code = 1036) NUCLEATED RBCS (test code = 0.0 /100WBC'S 1065) PLATELET COUNT (test code = 145 K/UL 1015) ABSOLUTE NEUTROPHILS (test code 3.83 K/UL = 1066) ABSOLUTE LYMPHOCYTES (test code 1.80 K/UL = 1067) ABSOLUTE MONOCYTES (test code = 0.64 K/UL 1068) ABSOLUTE EOSINOPHILS (test code 0.07 K/UL = 1040) ABSOLUTE BASOPHILS (test code = 0.04 K/UL 1069) ABS IMMATURE GRANULOCYTES (test 0.02 K/UL code = 1020) ABS NUCLEATED RBCS (test code = 0.00 K/UL 76870) CD4/CD8 LYMPHOCYTE [id number] 00:00:00 Test Item Value Reference Range Interpretation Comments ABSOLUTE LYMPHOCYTES (test code = 1718 [facility] 17283) PERCENT CD4 (test code = 58919) 24.0 % ABSOLUTE CD4 (test code = 44332) 413 PERUL PERCENT CD8 (test code = 41615) 56.7 % ABSOLUTE CD8 (test code = 75539) 973 PERUL CD4/CD8 RATIO (test code = 57519) 0.42 CD4/CD8 LYMPHOCYTE [id number] 00:00:00 Test Item Value Reference Range Interpretation Comments ABSOLUTE LYMPHOCYTES (test code = 1718 [facility] 26895) PERCENT CD4 (test code = 73261) 24.0 % ABSOLUTE CD4 (test code = 41280) 413 PERUL PERCENT CD8 (test code = 15954) 56.7 % ABSOLUTE CD8 (test code = 97044) 973 PERUL CD4/CD8 RATIO (test code = 65624) 0.42 HEMOGLOBIN [id number] 00:00:00 Test Item Value Reference Range Interpretation Comments HEMOGLOBIN A1c (test code = 13492) 6.5 % HEMOGLOBIN [id number] 00:00:00 Test Item Value Reference Range Interpretation Comments HEMOGLOBIN A1c (test code = 77481) 6.5 % HEMOGLOBIN [id number] 00:00:00 Test Item Value Reference Range Interpretation Comments HEMOGLOBIN A1c (test code = 01802) 6.5 % HEMOGLOBIN [id number] 00:00:00 Test Item Value Reference Range Interpretation Comments HEMOGLOBIN A1c (test code = 61517) 7.7 % HEMOGLOBIN [id number] 00:00:00 Test Item Value Reference Range Interpretation Comments HEMOGLOBIN A1c (test code = 79442) 7.7 % HEMOGLOBIN [id number] 00:00:00 Test Item Value Reference Range Interpretation Comments HEMOGLOBIN A1c (test code = 10782) 7.7 % HEMOGLOBIN [id number] 00:00:00 Test Item Value Reference Range Interpretation Comments HEMOGLOBIN A1c (test code = 08800) 7.7 % HEMOGLOBIN [id number] 00:00:00 Test Item Value Reference Range Interpretation Comments HEMOGLOBIN A1c (test code = 46375) 7.7 % HEMOGLOBIN [id number] 00:00:00 Test Item Value Reference Range Interpretation Comments HEMOGLOBIN A1c (test code = 41506) 7.7 % HEMOGLOBIN [id number] 00:00:00 Test Item Value Reference Range Interpretation Comments HEMOGLOBIN A1c (test code = 49783) 7.7 % HEMOGLOBIN [id number] 00:00:00 Test Item Value Reference Range Interpretation Comments HEMOGLOBIN A1c (test code = 72411) 7.7 % HEMOGLOBIN [id number] 00:00:00 Test Item Value Reference Range Interpretation Comments HEMOGLOBIN A1c (test code = 20427) 7.7 % CBC W/AUTO [id number] 00:00:00 Test Item Value Reference Range Interpretation Comments WBC (test code = 1001) 6.9 K/UL RBC (test code = 1002) 6.30 M/UL HEMOGLOBIN (test code = 1003) 19.7 G/DL HEMATOCRIT (test code = 1004) 55.3 % MCV (test code = 1005) 87.8 fL MCH (test code = 1006) 31.3 PG MCHC (test code = 1007) 35.6 G/DL RDW (test code = 1038) 14.5 % NEUTROPHILS (test code = 1008) 68.4 % LYMPHOCYTES (test code = 1010) 20.4 % MONOCYTES (test code = 1011) 9.1 % EOSINOPHILS (test code = 1012) 1.4 % BASOPHILS (test code = 1013) 0.7 % PLATELET COUNT (test code = 1015) 154 K/UL CBC W/AUTO [id number] 00:00:00 Test Item Value Reference Range Interpretation Comments WBC (test code = 1001) 6.9 K/UL RBC (test code = 1002) 6.30 M/UL HEMOGLOBIN (test code = 1003) 19.7 G/DL HEMATOCRIT (test code = 1004) 55.3 % MCV (test code = 1005) 87.8 fL MCH (test code = 1006) 31.3 PG MCHC (test code = 1007) 35.6 G/DL RDW (test code = 1038) 14.5 % NEUTROPHILS (test code = 1008) 68.4 % LYMPHOCYTES (test code = 1010) 20.4 % MONOCYTES (test code = 1011) 9.1 % EOSINOPHILS (test code = 1012) 1.4 % BASOPHILS (test code = 1013) 0.7 % PLATELET COUNT (test code = 1015) 154 K/UL CBC W/AUTO [id number] 00:00:00 Test Item Value Reference Range Interpretation Comments WBC (test code = 1001) 6.9 K/UL RBC (test code = 1002) 6.30 M/UL HEMOGLOBIN (test code = 1003) 19.7 G/DL HEMATOCRIT (test code = 1004) 55.3 % MCV (test code = 1005) 87.8 fL MCH (test code = 1006) 31.3 PG MCHC (test code = 1007) 35.6 G/DL RDW (test code = 1038) 14.5 % NEUTROPHILS (test code = 1008) 68.4 % LYMPHOCYTES (test code = 1010) 20.4 % MONOCYTES (test code = 1011) 9.1 % EOSINOPHILS (test code = 1012) 1.4 % BASOPHILS (test code = 1013) 0.7 % PLATELET COUNT (test code = 1015) 154 K/UL HEMOGLOBIN [id number] 00:00:00 Test Item Value Reference Range Interpretation Comments HEMOGLOBIN A1c (test code = 22820) 7.9 % HEMOGLOBIN [id number] 00:00:00 Test Item Value Reference Range Interpretation Comments HEMOGLOBIN A1c (test code = 03130) 7.9 % HEMOGLOBIN [id number] 00:00:00 Test Item Value Reference Range Interpretation Comments HEMOGLOBIN A1c (test code = 06156) 7.9 % COMPREHENSIVE METABOLIC [id number] 00:00:00 Test Item Value Reference Range Interpretation Comments GLUCOSE (test code = 2217) 146 MG/DL BUN (test code = 2208) 10 MG/DL CREATININE (test code = 2214) 1.03 MG/DL eGFR AMER. (test code 101 ML/MIN/1.73 = 44330) eGFR NON- AMER. (test 87 ML/MIN/1.73 code = 53618) CALC BUN/CREAT (test code = 10 RATIO 2235) SODIUM (test code = 2231) 138 MEQ/L POTASSIUM (test code = 2228) 4.5 MEQ/L CHLORIDE (test code = 2215) 100 MEQ/L CARBON DIOXIDE (test code = 24 MEQ/L 2205) CALCIUM (test code = 2209) 9.7 MG/DL PROTEIN, TOTAL (test code = 7.7 G/DL 2228) ALBUMIN (test code = 2201) 4.8 G/DL CALC GLOBULIN (test code = 2.9 G/DL 2239) CALC A/G RATIO (test code = 1.7 RATIO 2234) BILIRUBIN, TOTAL (test code = 0.5 MG/DL 2206) ALKALINE PHOSPHATASE (test 63 U/L code = 2204) AST (test code = 2218) 12 U/L ALT (test code = 2219) 14 U/L COMPREHENSIVE METABOLIC [id number] 00:00:00 Test Item Value Reference Range Interpretation Comments GLUCOSE (test code = 2217) 146 MG/DL BUN (test code = 2208) 10 MG/DL CREATININE (test code = 2214) 1.03 MG/DL eGFR AMER. (test code 101 ML/MIN/1.73 = 86616) eGFR NON- AMER. (test 87 ML/MIN/1.73 code = 52703) CALC BUN/CREAT (test code = 10 RATIO 2235) SODIUM (test code = 2231) 138 MEQ/L POTASSIUM (test code = 2228) 4.5 MEQ/L CHLORIDE (test code = 2215) 100 MEQ/L CARBON DIOXIDE (test code = 24 MEQ/L 220) CALCIUM (test code = 2209) 9.7 MG/DL PROTEIN, TOTAL (test code = 7.7 G/DL 2228) ALBUMIN (test code = 2201) 4.8 G/DL CALC GLOBULIN (test code = 2.9 G/DL 2240) CALC A/G RATIO (test code = 1.7 RATIO 2234) BILIRUBIN, TOTAL (test code = 0.5 MG/DL 2206) ALKALINE PHOSPHATASE (test 63 U/L code = 2204) AST (test code = 2218) 12 U/L ALT (test code = 2219) 14 U/L LIPID [id number] 00:00:00 Test Item Value Reference Range Interpretation Comments CHOLESTEROL (test code = 2210) 104 MG/DL TRIGLYCERIDES (test code = 2232) 216 MG/DL HDL CHOLESTEROL (test code = 2220) 24 MG/DL CALC LDL CHOL (test code = 2237) 52 MG/DL RISK RATIO LDL/HDL (test code = 2.17 RATIO 2238) LIPID [id number] 00:00:00 Test Item Value Reference Range Interpretation Comments CHOLESTEROL (test code = 2210) 104 MG/DL TRIGLYCERIDES (test code = 2232) 216 MG/DL HDL CHOLESTEROL (test code = 2220) 24 MG/DL CALC LDL CHOL (test code = 2237) 52 MG/DL RISK RATIO LDL/HDL (test code = 2.17 RATIO 2238) CK, [id number] 00:00:00 Test Item Value Reference Range Interpretation Comments CK, TOTAL (test code = 2013) 57 U/L CK, [id number] 00:00:00 Test Item Value Reference Range Interpretation Comments CK, TOTAL (test code = 2013) 57 U/L CBC W/AUTO [id number] 00:00:00 Test Item Value Reference Range Interpretation Comments WBC (test code = 1001) 6.9 K/UL RBC (test code = 1002) 6.30 M/UL HEMOGLOBIN (test code = 1003) 19.7 G/DL HEMATOCRIT (test code = 1004) 55.3 % MCV (test code = 1005) 87.8 fL MCH (test code = 1006) 31.3 PG MCHC (test code = 1007) 35.6 G/DL RDW (test code = 1038) 14.5 % NEUTROPHILS (test code = 1008) 68.4 % LYMPHOCYTES (test code = 1010) 20.4 % MONOCYTES (test code = 1011) 9.1 % EOSINOPHILS (test code = 1012) 1.4 % BASOPHILS (test code = 1013) 0.7 % PLATELET COUNT (test code = 1015) 154 K/UL CBC W/AUTO [id number] 00:00:00 Test Item Value Reference Range Interpretation Comments WBC (test code = 1001) 6.9 K/UL RBC (test code = 1002) 6.30 M/UL HEMOGLOBIN (test code = 1003) 19.7 G/DL HEMATOCRIT (test code = 1004) 55.3 % MCV (test code = 1005) 87.8 fL MCH (test code = 1006) 31.3 PG MCHC (test code = 1007) 35.6 G/DL RDW (test code = 1038) 14.5 % NEUTROPHILS (test code = 1008) 68.4 % LYMPHOCYTES (test code = 1010) 20.4 % MONOCYTES (test code = 1011) 9.1 % EOSINOPHILS (test code = 1012) 1.4 % BASOPHILS (test code = 1013) 0.7 % PLATELET COUNT (test code = 1015) 154 K/UL CBC W/AUTO [id number] 00:00:00 Test Item Value Reference Range Interpretation Comments WBC (test code = 1001) 6.9 K/UL RBC (test code = 1002) 6.30 M/UL HEMOGLOBIN (test code = 1003) 19.7 G/DL HEMATOCRIT (test code = 1004) 55.3 % MCV (test code = 1005) 87.8 fL MCH (test code = 1006) 31.3 PG MCHC (test code = 1007) 35.6 G/DL RDW (test code = 1038) 14.5 % NEUTROPHILS (test code = 1008) 68.4 % LYMPHOCYTES (test code = 1010) 20.4 % MONOCYTES (test code = 1011) 9.1 % EOSINOPHILS (test code = 1012) 1.4 % BASOPHILS (test code = 1013) 0.7 % PLATELET COUNT (test code = 1015) 154 K/UL HEMOGLOBIN [id number] 00:00:00 Test Item Value Reference Range Interpretation Comments HEMOGLOBIN A1c (test code = 18098) 7.9 % HEMOGLOBIN [id number] 00:00:00 Test Item Value Reference Range Interpretation Comments HEMOGLOBIN A1c (test code = 04874) 7.9 % HEMOGLOBIN [id number] 00:00:00 Test Item Value Reference Range Interpretation Comments HEMOGLOBIN A1c (test code = 59275) 7.9 % COMPREHENSIVE METABOLIC [id number] 00:00:00 Test Item Value Reference Range Interpretation Comments GLUCOSE (test code = 2217) 146 MG/DL BUN (test code = 2208) 10 MG/DL CREATININE (test code = 2214) 1.03 MG/DL eGFR AMER. (test code 101 ML/MIN/1.73 = 89705) eGFR NON- AMER. (test 87 ML/MIN/1.73 code = 86728) CALC BUN/CREAT (test code = 10 RATIO 2235) SODIUM (test code = 2231) 138 MEQ/L POTASSIUM (test code = 2228) 4.5 MEQ/L CHLORIDE (test code = 2215) 100 MEQ/L CARBON DIOXIDE (test code = 24 MEQ/L 2205) CALCIUM (test code = 2209) 9.7 MG/DL PROTEIN, TOTAL (test code = 7.7 G/DL 2228) ALBUMIN (test code = 2201) 4.8 G/DL CALC GLOBULIN (test code = 2.9 G/DL 0) CALC A/G RATIO (test code = 1.7 RATIO 4) BILIRUBIN, TOTAL (test code = 0.5 MG/DL 2206) ALKALINE PHOSPHATASE (test 63 U/L code = 2204) AST (test code = 2218) 12 U/L ALT (test code = 2219) 14 U/L COMPREHENSIVE METABOLIC [id number] 00:00:00 Test Item Value Reference Range Interpretation Comments GLUCOSE (test code = 2217) 146 MG/DL BUN (test code = 2208) 10 MG/DL CREATININE (test code = 2214) 1.03 MG/DL eGFR AMER. (test code 101 ML/MIN/1.73 = 72926) eGFR NON- AMER. (test 87 ML/MIN/1.73 code = 32321) CALC BUN/CREAT (test code = 10 RATIO 2235) SODIUM (test code = 2231) 138 MEQ/L POTASSIUM (test code = 2228) 4.5 MEQ/L CHLORIDE (test code = 2215) 100 MEQ/L CARBON DIOXIDE (test code = 24 MEQ/L 2205) CALCIUM (test code = 2209) 9.7 MG/DL PROTEIN, TOTAL (test code = 7.7 G/DL 2228) ALBUMIN (test code = 2201) 4.8 G/DL CALC GLOBULIN (test code = 2.9 G/DL 2239) CALC A/G RATIO (test code = 1.7 RATIO 4) BILIRUBIN, TOTAL (test code = 0.5 MG/DL 2206) ALKALINE PHOSPHATASE (test 63 U/L code = 2204) AST (test code = 2218) 12 U/L ALT (test code = 2219) 14 U/L LIPID [id number] 00:00:00 Test Item Value Reference Range Interpretation Comments CHOLESTEROL (test code = 2210) 104 MG/DL TRIGLYCERIDES (test code = 2232) 216 MG/DL HDL CHOLESTEROL (test code = 2220) 24 MG/DL CALC LDL CHOL (test code = 2237) 52 MG/DL RISK RATIO LDL/HDL (test code = 2.17 RATIO 2238) LIPID [id number] 00:00:00 Test Item Value Reference Range Interpretation Comments CHOLESTEROL (test code = 2210) 104 MG/DL TRIGLYCERIDES (test code = 2232) 216 MG/DL HDL CHOLESTEROL (test code = 2220) 24 MG/DL CALC LDL CHOL (test code = 2237) 52 MG/DL RISK RATIO LDL/HDL (test code = 2.17 RATIO 2238) CK, [id number] 00:00:00 Test Item Value Reference Range Interpretation Comments CK, TOTAL (test code = 2013) 57 U/L CK, [id number] 00:00:00 Test Item Value Reference Range Interpretation Comments CK, TOTAL (test code = 2013) 57 U/L CBC W/AUTO [id number] 00:00:00 Test Item Value Reference Range Interpretation Comments WBC (test code = 1001) 6.9 K/UL RBC (test code = 1002) 6.30 M/UL HEMOGLOBIN (test code = 1003) 19.7 G/DL HEMATOCRIT (test code = 1004) 55.3 % MCV (test code = 1005) 87.8 fL MCH (test code = 1006) 31.3 PG MCHC (test code = 1007) 35.6 G/DL RDW (test code = 1038) 14.5 % NEUTROPHILS (test code = 1008) 68.4 % LYMPHOCYTES (test code = 1010) 20.4 % MONOCYTES (test code = 1011) 9.1 % EOSINOPHILS (test code = 1012) 1.4 % BASOPHILS (test code = 1013) 0.7 % PLATELET COUNT (test code = 1015) 154 K/UL CBC W/AUTO [id number] 00:00:00 Test Item Value Reference Range Interpretation Comments WBC (test code = 1001) 6.9 K/UL RBC (test code = 1002) 6.30 M/UL HEMOGLOBIN (test code = 1003) 19.7 G/DL HEMATOCRIT (test code = 1004) 55.3 % MCV (test code = 1005) 87.8 fL MCH (test code = 1006) 31.3 PG MCHC (test code = 1007) 35.6 G/DL RDW (test code = 1038) 14.5 % NEUTROPHILS (test code = 1008) 68.4 % LYMPHOCYTES (test code = 1010) 20.4 % MONOCYTES (test code = 1011) 9.1 % EOSINOPHILS (test code = 1012) 1.4 % BASOPHILS (test code = 1013) 0.7 % PLATELET COUNT (test code = 1015) 154 K/UL CBC W/AUTO [id number] 00:00:00 Test Item Value Reference Range Interpretation Comments WBC (test code = 1001) 6.9 K/UL RBC (test code = 1002) 6.30 M/UL HEMOGLOBIN (test code = 1003) 19.7 G/DL HEMATOCRIT (test code = 1004) 55.3 % MCV (test code = 1005) 87.8 fL MCH (test code = 1006) 31.3 PG MCHC (test code = 1007) 35.6 G/DL RDW (test code = 1038) 14.5 % NEUTROPHILS (test code = 1008) 68.4 % LYMPHOCYTES (test code = 1010) 20.4 % MONOCYTES (test code = 1011) 9.1 % EOSINOPHILS (test code = 1012) 1.4 % BASOPHILS (test code = 1013) 0.7 % PLATELET COUNT (test code = 1015) 154 K/UL HEMOGLOBIN [id number] 00:00:00 Test Item Value Reference Range Interpretation Comments HEMOGLOBIN A1c (test code = 28151) 7.9 % HEMOGLOBIN [id number] 00:00:00 Test Item Value Reference Range Interpretation Comments HEMOGLOBIN A1c (test code = 32078) 7.9 % HEMOGLOBIN [id number] 00:00:00 Test Item Value Reference Range Interpretation Comments HEMOGLOBIN A1c (test code = 52017) 7.9 % COMPREHENSIVE METABOLIC [id number] 00:00:00 Test Item Value Reference Range Interpretation Comments GLUCOSE (test code = 2217) 146 MG/DL BUN (test code = 2208) 10 MG/DL CREATININE (test code = 2214) 1.03 MG/DL eGFR AMER. (test code 101 ML/MIN/1.73 = 47711) eGFR NON- AMER. (test 87 ML/MIN/1.73 code = 47430) CALC BUN/CREAT (test code = 10 RATIO 2235) SODIUM (test code = 2231) 138 MEQ/L POTASSIUM (test code = 2228) 4.5 MEQ/L CHLORIDE (test code = 2215) 100 MEQ/L CARBON DIOXIDE (test code = 24 MEQ/L 2205) CALCIUM (test code = 2209) 9.7 MG/DL PROTEIN, TOTAL (test code = 7.7 G/DL 2228) ALBUMIN (test code = 2201) 4.8 G/DL CALC GLOBULIN (test code = 2.9 G/DL 0) CALC A/G RATIO (test code = 1.7 RATIO 2234) BILIRUBIN, TOTAL (test code = 0.5 MG/DL 2206) ALKALINE PHOSPHATASE (test 63 U/L code = 2204) AST (test code = 2218) 12 U/L ALT (test code = 2219) 14 U/L COMPREHENSIVE METABOLIC [id number] 00:00:00 Test Item Value Reference Range Interpretation Comments GLUCOSE (test code = 2217) 146 MG/DL BUN (test code = 2208) 10 MG/DL CREATININE (test code = 2214) 1.03 MG/DL eGFR AMER. (test code 101 ML/MIN/1.73 = 98969) eGFR NON- AMER. (test 87 ML/MIN/1.73 code = 31192) CALC BUN/CREAT (test code = 10 RATIO 2235) SODIUM (test code = 2231) 138 MEQ/L POTASSIUM (test code = 2228) 4.5 MEQ/L CHLORIDE (test code = 2215) 100 MEQ/L CARBON DIOXIDE (test code = 24 MEQ/L 2205) CALCIUM (test code = 2209) 9.7 MG/DL PROTEIN, TOTAL (test code = 7.7 G/DL 2228) ALBUMIN (test code = 2201) 4.8 G/DL CALC GLOBULIN (test code = 2.9 G/DL 224) CALC A/G RATIO (test code = 1.7 RATIO 2234) BILIRUBIN, TOTAL (test code = 0.5 MG/DL 2206) ALKALINE PHOSPHATASE (test 63 U/L code = 2204) AST (test code = 2218) 12 U/L ALT (test code = 2219) 14 U/L LIPID [id number] 00:00:00 Test Item Value Reference Range Interpretation Comments CHOLESTEROL (test code = 2210) 104 MG/DL TRIGLYCERIDES (test code = 2232) 216 MG/DL HDL CHOLESTEROL (test code = 2220) 24 MG/DL CALC LDL CHOL (test code = 2237) 52 MG/DL RISK RATIO LDL/HDL (test code = 2.17 RATIO 2238) LIPID [id number] 00:00:00 Test Item Value Reference Range Interpretation Comments CHOLESTEROL (test code = 2210) 104 MG/DL TRIGLYCERIDES (test code = 2232) 216 MG/DL HDL CHOLESTEROL (test code = 2220) 24 MG/DL CALC LDL CHOL (test code = 2237) 52 MG/DL RISK RATIO LDL/HDL (test code = 2.17 RATIO 2238) CK, [id number] 00:00:00 Test Item Value Reference Range Interpretation Comments CK, TOTAL (test code = 2013) 57 U/L CK, [id number] 00:00:00 Test Item Value Reference Range Interpretation Comments CK, TOTAL (test code = 2013) 57 U/L CK, [id number] 00:00:00 Test Item Value Reference Range Interpretation Comments CK, TOTAL (test code = 2013) 48 U/L MICROALBUMIN/CREATININE, RANDOM AND [id number] 00:00:00 Test Item Value Reference Range Interpretation Comments CREATININE, URINE, CONC. (test 21.2 MG/DL code = 207) ALBUMIN, URINE, RANDOM (test code 4.6 MG/DL = 33097) CALC ALBUMIN/CREAT, RND (test code 217 MG/G = 01194) MICROALBUMIN/CREATININE, RANDOM AND [id number] 00:00:00 Test Item Value Reference Range Interpretation Comments CREATININE, URINE, CONC. (test 21.2 MG/DL code = 2072) ALBUMIN, URINE, RANDOM (test code 4.6 MG/DL = 45918) CALC ALBUMIN/CREAT, RND (test code 217 MG/G = 45155) CD4/CD8 LYMPHOCYTE [id number] 00:00:00 Test Item Value Reference Range Interpretation Comments ABSOLUTE LYMPHOCYTES (test code = 1127 PERUL 97212) PERCENT CD4 (test code = 27470) 27.7 % ABSOLUTE CD4 (test code = 63896) 312 PERUL PERCENT CD8 (test code = 88385) 54.2 % ABSOLUTE CD8 (test code = 43547) 611 PERUL CD4/CD8 RATIO (test code = 25459) 0.51 CD4/CD8 LYMPHOCYTE [id number] 00:00:00 Test Item Value Reference Range Interpretation Comments ABSOLUTE LYMPHOCYTES (test code = 1127 PERUL 26774) PERCENT CD4 (test code = 77271) 27.7 % ABSOLUTE CD4 (test code = 39354) 312 PERUL PERCENT CD8 (test code = 90811) 54.2 % ABSOLUTE CD8 (test code = 70829) 611 PERUL CD4/CD8 RATIO (test code = 98986) 0.51 LIPID [id number] 00:00:00 Test Item Value Reference Range Interpretation Comments CHOLESTEROL (test code = 2210) 99 MG/DL TRIGLYCERIDES (test code = 2232) 344 MG/DL HDL CHOLESTEROL (test code = 2220) 20 MG/DL CALC LDL CHOL (test code = 2237) 43 MG/DL RISK RATIO LDL/HDL (test code = 2.15 RATIO 2238) LIPID [id number] 00:00:00 Test Item Value Reference Range Interpretation Comments CHOLESTEROL (test code = 2210) 99 MG/DL TRIGLYCERIDES (test code = 2232) 344 MG/DL HDL CHOLESTEROL (test code = 2220) 20 MG/DL CALC LDL CHOL (test code = 2237) 43 MG/DL RISK RATIO LDL/HDL (test code = 2.15 RATIO 2238) HEMOGLOBIN [id number] 00:00:00 Test Item Value Reference Range Interpretation Comments HEMOGLOBIN A1c (test code = 34227) 9.6 % HEMOGLOBIN [id number] 00:00:00 Test Item Value Reference Range Interpretation Comments HEMOGLOBIN A1c (test code = 42738) 9.6 % HEMOGLOBIN [id number] 00:00:00 Test Item Value Reference Range Interpretation Comments HEMOGLOBIN A1c (test code = 61706) 9.6 % CBC W/AUTO [id number] 00:00:00 Test Item Value Reference Range Interpretation Comments WBC (test code = 1001) 4.9 K/UL RBC (test code = 1002) 6.12 M/UL HEMOGLOBIN (test code = 1003) 18.4 G/DL HEMATOCRIT (test code = 1004) 53.5 % MCV (test code = 1005) 87.4 fL MCH (test code = 1006) 30.1 PG MCHC (test code = 1007) 34.4 G/DL RDW (test code = 1038) 14.5 % NEUTROPHILS (test code = 1008) 65.4 % LYMPHOCYTES (test code = 1010) 21.9 % MONOCYTES (test code = 1011) 9.9 % EOSINOPHILS (test code = 1012) 1.6 % BASOPHILS (test code = 1013) 1.2 % PLATELET COUNT (test code = 1015) 152 K/UL CBC W/AUTO [id number] 00:00:00 Test Item Value Reference Range Interpretation Comments WBC (test code = 1001) 4.9 K/UL RBC (test code = 1002) 6.12 M/UL HEMOGLOBIN (test code = 1003) 18.4 G/DL HEMATOCRIT (test code = 1004) 53.5 % MCV (test code = 1005) 87.4 fL MCH (test code = 1006) 30.1 PG MCHC (test code = 1007) 34.4 G/DL RDW (test code = 1038) 14.5 % NEUTROPHILS (test code = 1008) 65.4 % LYMPHOCYTES (test code = 1010) 21.9 % MONOCYTES (test code = 1011) 9.9 % EOSINOPHILS (test code = 1012) 1.6 % BASOPHILS (test code = 1013) 1.2 % PLATELET COUNT (test code = 1015) 152 K/UL CBC W/AUTO [id number] 00:00:00 Test Item Value Reference Range Interpretation Comments WBC (test code = 1001) 4.9 K/UL RBC (test code = 1002) 6.12 M/UL HEMOGLOBIN (test code = 1003) 18.4 G/DL HEMATOCRIT (test code = 1004) 53.5 % MCV (test code = 1005) 87.4 fL MCH (test code = 1006) 30.1 PG MCHC (test code = 1007) 34.4 G/DL RDW (test code = 1038) 14.5 % NEUTROPHILS (test code = 1008) 65.4 % LYMPHOCYTES (test code = 1010) 21.9 % MONOCYTES (test code = 1011) 9.9 % EOSINOPHILS (test code = 1012) 1.6 % BASOPHILS (test code = 1013) 1.2 % PLATELET COUNT (test code = 1015) 152 K/UL COMPREHENSIVE METABOLIC [id number] 00:00:00 Test Item Value Reference Range Interpretation Comments GLUCOSE (test code = 2217) 211 MG/DL BUN (test code = 2208) 15 MG/DL CREATININE (test code = 2214) 0.96 MG/DL eGFR AMER. (test code 111 ML/MIN/1.73 = 42897) eGFR NON- AMER. (test 96 ML/MIN/1.73 code = 86964) CALC BUN/CREAT (test code = 16 RATIO 2235) SODIUM (test code = 2231) 135 MEQ/L POTASSIUM (test code = 2228) 4.5 MEQ/L CHLORIDE (test code = 2215) 98 MEQ/L CARBON DIOXIDE (test code = 20 MEQ/L 2205) CALCIUM (test code = 2209) 9.3 MG/DL PROTEIN, TOTAL (test code = 7.9 G/DL 2228) ALBUMIN (test code = 2201) 5.0 G/DL CALC GLOBULIN (test code = 2.9 G/DL 2240) CALC A/G RATIO (test code = 1.7 RATIO 2234) BILIRUBIN, TOTAL (test code = 0.4 MG/DL 2206) ALKALINE PHOSPHATASE (test 76 U/L code = 2204) AST (test code = 2218) 16 U/L ALT (test code = 2219) 20 U/L COMPREHENSIVE METABOLIC [id number] 00:00:00 Test Item Value Reference Range Interpretation Comments GLUCOSE (test code = 2217) 211 MG/DL BUN (test code = 2208) 15 MG/DL CREATININE (test code = 2214) 0.96 MG/DL eGFR AMER. (test code 111 ML/MIN/1.73 = 74038) eGFR NON- AMER. (test 96 ML/MIN/1.73 code = 09969) CALC BUN/CREAT (test code = 16 RATIO 2235) SODIUM (test code = 2231) 135 MEQ/L POTASSIUM (test code = 2228) 4.5 MEQ/L CHLORIDE (test code = 2215) 98 MEQ/L CARBON DIOXIDE (test code = 20 MEQ/L 2205) CALCIUM (test code = 2209) 9.3 MG/DL PROTEIN, TOTAL (test code = 7.9 G/DL 2228) ALBUMIN (test code = 220) 5.0 G/DL CALC GLOBULIN (test code = 2.9 G/DL 2239) CALC A/G RATIO (test code = 1.7 RATIO 2233) BILIRUBIN, TOTAL (test code = 0.4 MG/DL 2206) ALKALINE PHOSPHATASE (test 76 U/L code = 2204) AST (test code = 2218) 16 U/L ALT (test code = 2219) 20 U/L CK, [id number] 00:00:00 Test Item Value Reference Range Interpretation Comments CK, TOTAL (test code = 2013) 48 U/L CK, [id number] 00:00:00 Test Item Value Reference Range Interpretation Comments CK, TOTAL (test code = 2013) 48 U/L MICROALBUMIN/CREATININE, RANDOM AND [id number] 00:00:00 Test Item Value Reference Range Interpretation Comments CREATININE, URINE, CONC. (test 21.2 MG/DL code = 207) ALBUMIN, URINE, RANDOM (test code 4.6 MG/DL = 14786) CALC ALBUMIN/CREAT, RND (test code 217 MG/G = 39963) MICROALBUMIN/CREATININE, RANDOM AND [id number] 00:00:00 Test Item Value Reference Range Interpretation Comments CREATININE, URINE, CONC. (test 21.2 MG/DL code = 2072) ALBUMIN, URINE, RANDOM (test code 4.6 MG/DL = 96502) CALC ALBUMIN/CREAT, RND (test code 217 MG/G = 16092) CD4/CD8 LYMPHOCYTE [id number] 00:00:00 Test Item Value Reference Range Interpretation Comments ABSOLUTE LYMPHOCYTES (test code = 1127 PERUL 25604) PERCENT CD4 (test code = 57265) 27.7 % ABSOLUTE CD4 (test code = 36404) 312 PERUL PERCENT CD8 (test code = 08802) 54.2 % ABSOLUTE CD8 (test code = 89538) 611 PERUL CD4/CD8 RATIO (test code = 68861) 0.51 CD4/CD8 LYMPHOCYTE [id number] 00:00:00 Test Item Value Reference Range Interpretation Comments ABSOLUTE LYMPHOCYTES (test code = 1127 PERUL 17391) PERCENT CD4 (test code = 24123) 27.7 % ABSOLUTE CD4 (test code = 27809) 312 PERUL PERCENT CD8 (test code = 26819) 54.2 % ABSOLUTE CD8 (test code = 39493) 611 PERUL CD4/CD8 RATIO (test code = 18794) 0.51 LIPID [id number] 00:00:00 Test Item Value Reference Range Interpretation Comments CHOLESTEROL (test code = 2210) 99 MG/DL TRIGLYCERIDES (test code = 2232) 344 MG/DL HDL CHOLESTEROL (test code = 2220) 20 MG/DL CALC LDL CHOL (test code = 2237) 43 MG/DL RISK RATIO LDL/HDL (test code = 2.15 RATIO 2238) LIPID [id number] 00:00:00 Test Item Value Reference Range Interpretation Comments CHOLESTEROL (test code = 2210) 99 MG/DL TRIGLYCERIDES (test code = 2232) 344 MG/DL HDL CHOLESTEROL (test code = 2220) 20 MG/DL CALC LDL CHOL (test code = 2237) 43 MG/DL RISK RATIO LDL/HDL (test code = 2.15 RATIO 2238) HEMOGLOBIN [id number] 00:00:00 Test Item Value Reference Range Interpretation Comments HEMOGLOBIN A1c (test code = 40330) 9.6 % HEMOGLOBIN [id number] 00:00:00 Test Item Value Reference Range Interpretation Comments HEMOGLOBIN A1c (test code = 79217) 9.6 % HEMOGLOBIN [id number] 00:00:00 Test Item Value Reference Range Interpretation Comments HEMOGLOBIN A1c (test code = 85850) 9.6 % CBC W/AUTO [id number] 00:00:00 Test Item Value Reference Range Interpretation Comments WBC (test code = 1001) 4.9 K/UL RBC (test code = 1002) 6.12 M/UL HEMOGLOBIN (test code = 1003) 18.4 G/DL HEMATOCRIT (test code = 1004) 53.5 % MCV (test code = 1005) 87.4 fL MCH (test code = 1006) 30.1 PG MCHC (test code = 1007) 34.4 G/DL RDW (test code = 1038) 14.5 % NEUTROPHILS (test code = 1008) 65.4 % LYMPHOCYTES (test code = 1010) 21.9 % MONOCYTES (test code = 1011) 9.9 % EOSINOPHILS (test code = 1012) 1.6 % BASOPHILS (test code = 1013) 1.2 % PLATELET COUNT (test code = 1015) 152 K/UL CBC W/AUTO [id number] 00:00:00 Test Item Value Reference Range Interpretation Comments WBC (test code = 1001) 4.9 K/UL RBC (test code = 1002) 6.12 M/UL HEMOGLOBIN (test code = 1003) 18.4 G/DL HEMATOCRIT (test code = 1004) 53.5 % MCV (test code = 1005) 87.4 fL MCH (test code = 1006) 30.1 PG MCHC (test code = 1007) 34.4 G/DL RDW (test code = 1038) 14.5 % NEUTROPHILS (test code = 1008) 65.4 % LYMPHOCYTES (test code = 1010) 21.9 % MONOCYTES (test code = 1011) 9.9 % EOSINOPHILS (test code = 1012) 1.6 % BASOPHILS (test code = 1013) 1.2 % PLATELET COUNT (test code = 1015) 152 K/UL CBC W/AUTO [id number] 00:00:00 Test Item Value Reference Range Interpretation Comments WBC (test code = 1001) 4.9 K/UL RBC (test code = 1002) 6.12 M/UL HEMOGLOBIN (test code = 1003) 18.4 G/DL HEMATOCRIT (test code = 1004) 53.5 % MCV (test code = 1005) 87.4 fL MCH (test code = 1006) 30.1 PG MCHC (test code = 1007) 34.4 G/DL RDW (test code = 1038) 14.5 % NEUTROPHILS (test code = 1008) 65.4 % LYMPHOCYTES (test code = 1010) 21.9 % MONOCYTES (test code = 1011) 9.9 % EOSINOPHILS (test code = 1012) 1.6 % BASOPHILS (test code = 1013) 1.2 % PLATELET COUNT (test code = 1015) 152 K/UL COMPREHENSIVE METABOLIC [id number] 00:00:00 Test Item Value Reference Range Interpretation Comments GLUCOSE (test code = 2217) 211 MG/DL BUN (test code = 2208) 15 MG/DL CREATININE (test code = 2214) 0.96 MG/DL eGFR AMER. (test code 111 ML/MIN/1.73 = 26747) eGFR NON- AMER. (test 96 ML/MIN/1.73 code = 51113) CALC BUN/CREAT (test code = 16 RATIO 2235) SODIUM (test code = 2231) 135 MEQ/L POTASSIUM (test code = 2228) 4.5 MEQ/L CHLORIDE (test code = 2215) 98 MEQ/L CARBON DIOXIDE (test code = 20 MEQ/L 2206) CALCIUM (test code = 2209) 9.3 MG/DL PROTEIN, TOTAL (test code = 7.9 G/DL 2228) ALBUMIN (test code = 2201) 5.0 G/DL CALC GLOBULIN (test code = 2.9 G/DL 2240) CALC A/G RATIO (test code = 1.7 RATIO 2234) BILIRUBIN, TOTAL (test code = 0.4 MG/DL 2206) ALKALINE PHOSPHATASE (test 76 U/L code = 2204) AST (test code = 2218) 16 U/L ALT (test code = 2219) 20 U/L COMPREHENSIVE METABOLIC [id number] 00:00:00 Test Item Value Reference Range Interpretation Comments GLUCOSE (test code = 2217) 211 MG/DL BUN (test code = 2208) 15 MG/DL CREATININE (test code = 2214) 0.96 MG/DL eGFR AMER. (test code 111 ML/MIN/1.73 = 94351) eGFR NON- AMER. (test 96 ML/MIN/1.73 code = 74920) CALC BUN/CREAT (test code = 16 RATIO 2234) SODIUM (test code = 2231) 135 MEQ/L POTASSIUM (test code = 2228) 4.5 MEQ/L CHLORIDE (test code = 2215) 98 MEQ/L CARBON DIOXIDE (test code = 20 MEQ/L 2205) CALCIUM (test code = 2209) 9.3 MG/DL PROTEIN, TOTAL (test code = 7.9 G/DL 2228) ALBUMIN (test code = 220) 5.0 G/DL CALC GLOBULIN (test code = 2.9 G/DL 2239) CALC A/G RATIO (test code = 1.7 RATIO 2233) BILIRUBIN, TOTAL (test code = 0.4 MG/DL 2206) ALKALINE PHOSPHATASE (test 76 U/L code = 2203) AST (test code = 221) 16 U/L ALT (test code = 221) 20 U/L CK, [id number] 00:00:00 Test Item Value Reference Range Interpretation Comments CK, TOTAL (test code = 2013) 48 U/L CK, [id number] 00:00:00 Test Item Value Reference Range Interpretation Comments CK, TOTAL (test code = 2013) 48 U/L MICROALBUMIN/CREATININE, RANDOM AND [id number] 00:00:00 Test Item Value Reference Range Interpretation Comments CREATININE, URINE, CONC. (test 21.2 MG/DL code = 2072) ALBUMIN, URINE, RANDOM (test code 4.6 MG/DL = 74477) CALC ALBUMIN/CREAT, RND (test code 217 MG/G = 37514) MICROALBUMIN/CREATININE, RANDOM AND [id number] 00:00:00 Test Item Value Reference Range Interpretation Comments CREATININE, URINE, CONC. (test 21.2 MG/DL code = 2072) ALBUMIN, URINE, RANDOM (test code 4.6 MG/DL = 63688) CALC ALBUMIN/CREAT, RND (test code 217 MG/G = 46047) CD4/CD8 LYMPHOCYTE [id number] 00:00:00 Test Item Value Reference Range Interpretation Comments ABSOLUTE LYMPHOCYTES (test code = 1127 PERUL 46997) PERCENT CD4 (test code = 54829) 27.7 % ABSOLUTE CD4 (test code = 08412) 312 PERUL PERCENT CD8 (test code = 50837) 54.2 % ABSOLUTE CD8 (test code = 14567) 611 PERUL CD4/CD8 RATIO (test code = 07374) 0.51 CD4/CD8 LYMPHOCYTE [id number] 00:00:00 Test Item Value Reference Range Interpretation Comments ABSOLUTE LYMPHOCYTES (test code = 1127 PERUL 74571) PERCENT CD4 (test code = 74545) 27.7 % ABSOLUTE CD4 (test code = 60449) 312 PERUL PERCENT CD8 (test code = 76163) 54.2 % ABSOLUTE CD8 (test code = 58135) 611 PERUL CD4/CD8 RATIO (test code = 98793) 0.51 LIPID [id number] 00:00:00 Test Item Value Reference Range Interpretation Comments CHOLESTEROL (test code = 2210) 99 MG/DL TRIGLYCERIDES (test code = 2232) 344 MG/DL HDL CHOLESTEROL (test code = 2220) 20 MG/DL CALC LDL CHOL (test code = 2237) 43 MG/DL RISK RATIO LDL/HDL (test code = 2.15 RATIO 2238) LIPID [id number] 00:00:00 Test Item Value Reference Range Interpretation Comments CHOLESTEROL (test code = 2210) 99 MG/DL TRIGLYCERIDES (test code = 2232) 344 MG/DL HDL CHOLESTEROL (test code = 2220) 20 MG/DL CALC LDL CHOL (test code = 2237) 43 MG/DL RISK RATIO LDL/HDL (test code = 2.15 RATIO 2238) HEMOGLOBIN [id number] 00:00:00 Test Item Value Reference Range Interpretation Comments HEMOGLOBIN A1c (test code = 53485) 9.6 % HEMOGLOBIN [id number] 00:00:00 Test Item Value Reference Range Interpretation Comments HEMOGLOBIN A1c (test code = 36943) 9.6 % HEMOGLOBIN [id number] 00:00:00 Test Item Value Reference Range Interpretation Comments HEMOGLOBIN A1c (test code = 43580) 9.6 % CBC W/AUTO [id number] 00:00:00 Test Item Value Reference Range Interpretation Comments WBC (test code = 1001) 4.9 K/UL RBC (test code = 1002) 6.12 M/UL HEMOGLOBIN (test code = 1003) 18.4 G/DL HEMATOCRIT (test code = 1004) 53.5 % MCV (test code = 1005) 87.4 fL MCH (test code = 1006) 30.1 PG MCHC (test code = 1007) 34.4 G/DL RDW (test code = 1038) 14.5 % NEUTROPHILS (test code = 1008) 65.4 % LYMPHOCYTES (test code = 1010) 21.9 % MONOCYTES (test code = 1011) 9.9 % EOSINOPHILS (test code = 1012) 1.6 % BASOPHILS (test code = 1013) 1.2 % PLATELET COUNT (test code = 1015) 152 K/UL CBC W/AUTO [id number] 00:00:00 Test Item Value Reference Range Interpretation Comments WBC (test code = 1001) 4.9 K/UL RBC (test code = 1002) 6.12 M/UL HEMOGLOBIN (test code = 1003) 18.4 G/DL HEMATOCRIT (test code = 1004) 53.5 % MCV (test code = 1005) 87.4 fL MCH (test code = 1006) 30.1 PG MCHC (test code = 1007) 34.4 G/DL RDW (test code = 1038) 14.5 % NEUTROPHILS (test code = 1008) 65.4 % LYMPHOCYTES (test code = 1010) 21.9 % MONOCYTES (test code = 1011) 9.9 % EOSINOPHILS (test code = 1012) 1.6 % BASOPHILS (test code = 1013) 1.2 % PLATELET COUNT (test code = 1015) 152 K/UL CBC W/AUTO [id number] 00:00:00 Test Item Value Reference Range Interpretation Comments WBC (test code = 1001) 4.9 K/UL RBC (test code = 1002) 6.12 M/UL HEMOGLOBIN (test code = 1003) 18.4 G/DL HEMATOCRIT (test code = 1004) 53.5 % MCV (test code = 1005) 87.4 fL MCH (test code = 1006) 30.1 PG MCHC (test code = 1007) 34.4 G/DL RDW (test code = 1038) 14.5 % NEUTROPHILS (test code = 1008) 65.4 % LYMPHOCYTES (test code = 1010) 21.9 % MONOCYTES (test code = 1011) 9.9 % EOSINOPHILS (test code = 1012) 1.6 % BASOPHILS (test code = 1013) 1.2 % PLATELET COUNT (test code = 1015) 152 K/UL COMPREHENSIVE METABOLIC [id number] 00:00:00 Test Item Value Reference Range Interpretation Comments GLUCOSE (test code = 2217) 211 MG/DL BUN (test code = 2208) 15 MG/DL CREATININE (test code = 2214) 0.96 MG/DL eGFR AMER. (test code 111 ML/MIN/1.73 = 41151) eGFR NON- AMER. (test 96 ML/MIN/1.73 code = 20703) CALC BUN/CREAT (test code = 16 RATIO 2235) SODIUM (test code = 2231) 135 MEQ/L POTASSIUM (test code = 2228) 4.5 MEQ/L CHLORIDE (test code = 2215) 98 MEQ/L CARBON DIOXIDE (test code = 20 MEQ/L 2205) CALCIUM (test code = 2209) 9.3 MG/DL PROTEIN, TOTAL (test code = 7.9 G/DL 2228) ALBUMIN (test code = 2201) 5.0 G/DL CALC GLOBULIN (test code = 2.9 G/DL 2239) CALC A/G RATIO (test code = 1.7 RATIO 223) BILIRUBIN, TOTAL (test code = 0.4 MG/DL 2206) ALKALINE PHOSPHATASE (test 76 U/L code = 2204) AST (test code = 2218) 16 U/L ALT (test code = 2219) 20 U/L COMPREHENSIVE METABOLIC [id number] 00:00:00 Test Item Value Reference Range Interpretation Comments GLUCOSE (test code = 2217) 211 MG/DL BUN (test code = 2208) 15 MG/DL CREATININE (test code = 2214) 0.96 MG/DL eGFR AMER. (test code 111 ML/MIN/1.73 = 87406) eGFR NON- AMER. (test 96 ML/MIN/1.73 code = 34681) CALC BUN/CREAT (test code = 16 RATIO 2235) SODIUM (test code = 2231) 135 MEQ/L POTASSIUM (test code = 2228) 4.5 MEQ/L CHLORIDE (test code = 2215) 98 MEQ/L CARBON DIOXIDE (test code = 20 MEQ/L 220) CALCIUM (test code = 2209) 9.3 MG/DL PROTEIN, TOTAL (test code = 7.9 G/DL 2229) ALBUMIN (test code = 2201) 5.0 G/DL CALC GLOBULIN (test code = 2.9 G/DL 2240) CALC A/G RATIO (test code = 1.7 RATIO 2234) BILIRUBIN, TOTAL (test code = 0.4 MG/DL 2206) ALKALINE PHOSPHATASE (test 76 U/L code = 2204) AST (test code = 2218) 16 U/L ALT (test code = 2219) 20 U/L CK, [id number] 00:00:00 Test Item Value Reference Range Interpretation Comments CK, TOTAL (test code = 2013) 48 U/L HEMOGLOBIN [id number] 00:00:00 Test Item Value Reference Range Interpretation Comments HEMOGLOBIN A1c (test code = 57438) 11.6 % HEMOGLOBIN [id number] 00:00:00 Test Item Value Reference Range Interpretation Comments HEMOGLOBIN A1c (test code = 39123) 11.6 % HEMOGLOBIN [id number] 00:00:00 Test Item Value Reference Range Interpretation Comments HEMOGLOBIN A1c (test code = 52251) 11.6 % HEMOGLOBIN [id number] 00:00:00 Test Item Value Reference Range Interpretation Comments HEMOGLOBIN A1c (test code = 31730) 11.6 % HEMOGLOBIN [id number] 00:00:00 Test Item Value Reference Range Interpretation Comments HEMOGLOBIN A1c (test code = 25990) 11.6 % HEMOGLOBIN [id number] 00:00:00 Test Item Value Reference Range Interpretation Comments HEMOGLOBIN A1c (test code = 86870) 11.6 % HEMOGLOBIN [id number] 00:00:00 Test Item Value Reference Range Interpretation Comments HEMOGLOBIN A1c (test code = 49496) 11.6 % HEMOGLOBIN [id number] 00:00:00 Test Item Value Reference Range Interpretation Comments HEMOGLOBIN A1c (test code = 64076) 11.6 % HEMOGLOBIN [id number] 00:00:00 Test Item Value Reference Range Interpretation Comments HEMOGLOBIN A1c (test code = 02898) 11.6 % COMPREHENSIVE METABOLIC [id number] 00:00:00 Test Item Value Reference Range Interpretation Comments GLUCOSE (test code = 2217) 470 MG/DL BUN (test code = 2208) 8 MG/DL CREATININE (test code = 2214) 1.19 MG/DL eGFR AMER. (test code 86 ML/MIN/1.73 = 46241) eGFR NON- AMER. (test 74 ML/MIN/1.73 code = 38569) CALC BUN/CREAT (test code = 7 RATIO 2235) SODIUM (test code = 2231) 138 MEQ/L POTASSIUM (test code = 2228) 3.6 MEQ/L CHLORIDE (test code = 2215) 95 MEQ/L CARBON DIOXIDE (test code = 26 MEQ/L 2206) CALCIUM (test code = 2209) 9.2 MG/DL PROTEIN, TOTAL (test code = 7.4 G/DL 2228) ALBUMIN (test code = 2201) 4.4 G/DL CALC GLOBULIN (test code = 3.0 G/DL 2240) CALC A/G RATIO (test code = 1.5 RATIO 2234) BILIRUBIN, TOTAL (test code = 0.5 MG/DL 2206) ALKALINE PHOSPHATASE (test 72 U/L code = 220) AST (test code = 2218) 19 U/L ALT (test code = 2219) 17 U/L COMPREHENSIVE METABOLIC [id number] 00:00:00 Test Item Value Reference Range Interpretation Comments GLUCOSE (test code = 2217) 470 MG/DL BUN (test code = 2208) 8 MG/DL CREATININE (test code = 2214) 1.19 MG/DL eGFR AMER. (test code 86 ML/MIN/1.73 = 05384) eGFR NON- AMER. (test 74 ML/MIN/1.73 code = 02343) CALC BUN/CREAT (test code = 7 RATIO 2235) SODIUM (test code = 2231) 138 MEQ/L POTASSIUM (test code = 2228) 3.6 MEQ/L CHLORIDE (test code = 2215) 95 MEQ/L CARBON DIOXIDE (test code = 26 MEQ/L 2206) CALCIUM (test code = 2209) 9.2 MG/DL PROTEIN, TOTAL (test code = 7.4 G/DL 2228) ALBUMIN (test code = 2201) 4.4 G/DL CALC GLOBULIN (test code = 3.0 G/DL 2240) CALC A/G RATIO (test code = 1.5 RATIO 2234) BILIRUBIN, TOTAL (test code = 0.5 MG/DL 2206) ALKALINE PHOSPHATASE (test 72 U/L code = 2204) AST (test code = 2218) 19 U/L ALT (test code = 2219) 17 U/L COMPREHENSIVE METABOLIC [id number] 00:00:00 Test Item Value Reference Range Interpretation Comments GLUCOSE (test code = 2217) 470 MG/DL BUN (test code = 2208) 8 MG/DL CREATININE (test code = 2214) 1.19 MG/DL eGFR AMER. (test code 86 ML/MIN/1.73 = 42785) eGFR NON- AMER. (test 74 ML/MIN/1.73 code = 04110) CALC BUN/CREAT (test code = 7 RATIO 2235) SODIUM (test code = 2231) 138 MEQ/L POTASSIUM (test code = 2228) 3.6 MEQ/L CHLORIDE (test code = 2215) 95 MEQ/L CARBON DIOXIDE (test code = 26 MEQ/L 2205) CALCIUM (test code = 2209) 9.2 MG/DL PROTEIN, TOTAL (test code = 7.4 G/DL 2228) ALBUMIN (test code = 2201) 4.4 G/DL CALC GLOBULIN (test code = 3.0 G/DL 2240) CALC A/G RATIO (test code = 1.5 RATIO 2234) BILIRUBIN, TOTAL (test code = 0.5 MG/DL 2206) ALKALINE PHOSPHATASE (test 72 U/L code = 2204) AST (test code = 2218) 19 U/L ALT (test code = 2219) 17 U/L COMPREHENSIVE METABOLIC [id number] 00:00:00 Test Item Value Reference Range Interpretation Comments GLUCOSE (test code = 2217) 470 MG/DL BUN (test code = 2208) 8 MG/DL CREATININE (test code = 2214) 1.19 MG/DL eGFR AMER. (test code 86 ML/MIN/1.73 = 29517) eGFR NON- AMER. (test 74 ML/MIN/1.73 code = 25810) CALC BUN/CREAT (test code = 7 RATIO 2235) SODIUM (test code = 2231) 138 MEQ/L POTASSIUM (test code = 2228) 3.6 MEQ/L CHLORIDE (test code = 2215) 95 MEQ/L CARBON DIOXIDE (test code = 26 MEQ/L 2206) CALCIUM (test code = 2209) 9.2 MG/DL PROTEIN, TOTAL (test code = 7.4 G/DL 2228) ALBUMIN (test code = 2201) 4.4 G/DL CALC GLOBULIN (test code = 3.0 G/DL 2240) CALC A/G RATIO (test code = 1.5 RATIO 2234) BILIRUBIN, TOTAL (test code = 0.5 MG/DL 2206) ALKALINE PHOSPHATASE (test 72 U/L code = 2204) AST (test code = 2218) 19 U/L ALT (test code = 2219) 17 U/L COMPREHENSIVE METABOLIC [id number] 00:00:00 Test Item Value Reference Range Interpretation Comments GLUCOSE (test code = 2217) 470 MG/DL BUN (test code = 2208) 8 MG/DL CREATININE (test code = 2214) 1.19 MG/DL eGFR AMER. (test code 86 ML/MIN/1.73 = 32862) eGFR NON- AMER. (test 74 ML/MIN/1.73 code = 50067) CALC BUN/CREAT (test code = 7 RATIO 2235) SODIUM (test code = 2231) 138 MEQ/L POTASSIUM (test code = 2228) 3.6 MEQ/L CHLORIDE (test code = 2215) 95 MEQ/L CARBON DIOXIDE (test code = 26 MEQ/L 2205) CALCIUM (test code = 2209) 9.2 MG/DL PROTEIN, TOTAL (test code = 7.4 G/DL 2228) ALBUMIN (test code = 2201) 4.4 G/DL CALC GLOBULIN (test code = 3.0 G/DL 2240) CALC A/G RATIO (test code = 1.5 RATIO 2234) BILIRUBIN, TOTAL (test code = 0.5 MG/DL 2206) ALKALINE PHOSPHATASE (test 72 U/L code = 2204) AST (test code = 2218) 19 U/L ALT (test code = 2219) 17 U/L COMPREHENSIVE METABOLIC [id number] 00:00:00 Test Item Value Reference Range Interpretation Comments GLUCOSE (test code = 2217) 470 MG/DL BUN (test code = 2208) 8 MG/DL CREATININE (test code = 2214) 1.19 MG/DL eGFR AMER. (test code 86 ML/MIN/1.73 = 62058) eGFR NON- AMER. (test 74 ML/MIN/1.73 code = 02332) CALC BUN/CREAT (test code = 7 RATIO 2235) SODIUM (test code = 2231) 138 MEQ/L POTASSIUM (test code = 2228) 3.6 MEQ/L CHLORIDE (test code = 2215) 95 MEQ/L CARBON DIOXIDE (test code = 26 MEQ/L 2205) CALCIUM (test code = 2209) 9.2 MG/DL PROTEIN, TOTAL (test code = 7.4 G/DL 222) ALBUMIN (test code = 2201) 4.4 G/DL CALC GLOBULIN (test code = 3.0 G/DL 2240) CALC A/G RATIO (test code = 1.5 RATIO 2234) BILIRUBIN, TOTAL (test code = 0.5 MG/DL 2206) ALKALINE PHOSPHATASE (test 72 U/L code = 2204) AST (test code = 2218) 19 U/L ALT (test code = 2219) 17 U/L HEMOGLOBIN [id number] 00:00:00 Test Item Value Reference Range Interpretation Comments HEMOGLOBIN A1c (test code = 16972) 9.6 % HEMOGLOBIN [id number] 00:00:00 Test Item Value Reference Range Interpretation Comments HEMOGLOBIN A1c (test code = 12894) 9.6 % HEMOGLOBIN [id number] 00:00:00 Test Item Value Reference Range Interpretation Comments HEMOGLOBIN A1c (test code = 55368) 9.6 % CBC W/AUTO [id number] 00:00:00 Test Item Value Reference Range Interpretation Comments WBC (test code = 1001) 4.8 K/UL RBC (test code = 1002) 5.39 M/UL HEMOGLOBIN (test code = 1003) 13.2 G/DL HEMATOCRIT (test code = 1004) 41.7 % MCV (test code = 1005) 77.4 fL MCH (test code = 1006) 24.5 PG MCHC (test code = 1007) 31.7 G/DL RDW (test code = 1038) 18.3 % NEUTROPHILS (test code = 1008) 64.8 % LYMPHOCYTES (test code = 1010) 22.4 % MONOCYTES (test code = 1011) 11.0 % EOSINOPHILS (test code = 1012) 1.0 % BASOPHILS (test code = 1013) 0.8 % PLATELET COUNT (test code = 1015) 145 K/UL CBC W/AUTO [id number] 00:00:00 Test Item Value Reference Range Interpretation Comments WBC (test code = 1001) 4.8 K/UL RBC (test code = 1002) 5.39 M/UL HEMOGLOBIN (test code = 1003) 13.2 G/DL HEMATOCRIT (test code = 1004) 41.7 % MCV (test code = 1005) 77.4 fL MCH (test code = 1006) 24.5 PG MCHC (test code = 1007) 31.7 G/DL RDW (test code = 1038) 18.3 % NEUTROPHILS (test code = 1008) 64.8 % LYMPHOCYTES (test code = 1010) 22.4 % MONOCYTES (test code = 1011) 11.0 % EOSINOPHILS (test code = 1012) 1.0 % BASOPHILS (test code = 1013) 0.8 % PLATELET COUNT (test code = 1015) 145 K/UL CBC W/AUTO [id number] 00:00:00 Test Item Value Reference Range Interpretation Comments WBC (test code = 1001) 4.8 K/UL RBC (test code = 1002) 5.39 M/UL HEMOGLOBIN (test code = 1003) 13.2 G/DL HEMATOCRIT (test code = 1004) 41.7 % MCV (test code = 1005) 77.4 fL MCH (test code = 1006) 24.5 PG MCHC (test code = 1007) 31.7 G/DL RDW (test code = 1038) 18.3 % NEUTROPHILS (test code = 1008) 64.8 % LYMPHOCYTES (test code = 1010) 22.4 % MONOCYTES (test code = 1011) 11.0 % EOSINOPHILS (test code = 1012) 1.0 % BASOPHILS (test code = 1013) 0.8 % PLATELET COUNT (test code = 1015) 145 K/UL COMPREHENSIVE METABOLIC [id number] 00:00:00 Test Item Value Reference Range Interpretation Comments GLUCOSE (test code = 2217) 287 MG/DL BUN (test code = 2208) 10 MG/DL CREATININE (test code = 2214) 0.91 MG/DL eGFR AMER. (test code 118 ML/MIN/1.73 = 90616) eGFR NON- AMER. (test 102 ML/MIN/1.73 code = 32169) CALC BUN/CREAT (test code = 11 RATIO 2235) SODIUM (test code = 2231) 141 MEQ/L POTASSIUM (test code = 2228) 3.9 MEQ/L CHLORIDE (test code = 2215) 102 MEQ/L CARBON DIOXIDE (test code = 26 MEQ/L 2205) CALCIUM (test code = 2209) 9.1 MG/DL PROTEIN, TOTAL (test code = 7.2 G/DL 2228) ALBUMIN (test code = 2201) 4.7 G/DL CALC GLOBULIN (test code = 2.5 G/DL 2240) CALC A/G RATIO (test code = 1.9 RATIO 2234) BILIRUBIN, TOTAL (test code = 0.2 MG/DL 2206) ALKALINE PHOSPHATASE (test 68 U/L code = 2204) AST (test code = 2218) 14 U/L ALT (test code = 2219) 16 U/L COMPREHENSIVE METABOLIC [id number] 00:00:00 Test Item Value Reference Range Interpretation Comments GLUCOSE (test code = 2217) 287 MG/DL BUN (test code = 2208) 10 MG/DL CREATININE (test code = 2214) 0.91 MG/DL eGFR AMER. (test code 118 ML/MIN/1.73 = 37406) eGFR NON- AMER. (test 102 ML/MIN/1.73 code = 80176) CALC BUN/CREAT (test code = 11 RATIO 223) SODIUM (test code = 2231) 141 MEQ/L POTASSIUM (test code = 2228) 3.9 MEQ/L CHLORIDE (test code = 2215) 102 MEQ/L CARBON DIOXIDE (test code = 26 MEQ/L 2205) CALCIUM (test code = 2209) 9.1 MG/DL PROTEIN, TOTAL (test code = 7.2 G/DL 2228) ALBUMIN (test code = 2201) 4.7 G/DL CALC GLOBULIN (test code = 2.5 G/DL 2240) CALC A/G RATIO (test code = 1.9 RATIO 2234) BILIRUBIN, TOTAL (test code = 0.2 MG/DL 7) ALKALINE PHOSPHATASE (test 68 U/L code = 2204) AST (test code = 2218) 14 U/L ALT (test code = 2219) 16 U/L LIPID [id number] 00:00:00 Test Item Value Reference Range Interpretation Comments CHOLESTEROL (test code = 2210) 117 MG/DL TRIGLYCERIDES (test code = 2232) 386 MG/DL HDL CHOLESTEROL (test code = 2220) 25 MG/DL CALC LDL CHOL (test code = 2237) 51 MG/DL RISK RATIO LDL/HDL (test code = 2.04 RATIO 2238) LIPID [id number] 00:00:00 Test Item Value Reference Range Interpretation Comments CHOLESTEROL (test code = 2210) 117 MG/DL TRIGLYCERIDES (test code = 2232) 386 MG/DL HDL CHOLESTEROL (test code = 2220) 25 MG/DL CALC LDL CHOL (test code = 2237) 51 MG/DL RISK RATIO LDL/HDL (test code = 2.04 RATIO 2238) MICROALBUMIN, [id number] 00:00:00 Test Item Value Reference Range Interpretation Comments ALBUMIN, URINE, RANDOM (test code = 0.6 MG/DL 17897) MICROALBUMIN, [id number] 00:00:00 Test Item Value Reference Range Interpretation Comments ALBUMIN, URINE, RANDOM (test code = 0.6 MG/DL 94303) HEMOGLOBIN [id number] 00:00:00 Test Item Value Reference Range Interpretation Comments HEMOGLOBIN A1c (test code = 38317) 9.6 % HEMOGLOBIN [id number] 00:00:00 Test Item Value Reference Range Interpretation Comments HEMOGLOBIN A1c (test code = 69646) 9.6 % HEMOGLOBIN [id number] 00:00:00 Test Item Value Reference Range Interpretation Comments HEMOGLOBIN A1c (test code = 72332) 9.6 % CBC W/AUTO [id number] 00:00:00 Test Item Value Reference Range Interpretation Comments WBC (test code = 1001) 4.8 K/UL RBC (test code = 1002) 5.39 M/UL HEMOGLOBIN (test code = 1003) 13.2 G/DL HEMATOCRIT (test code = 1004) 41.7 % MCV (test code = 1005) 77.4 fL MCH (test code = 1006) 24.5 PG MCHC (test code = 1007) 31.7 G/DL RDW (test code = 1038) 18.3 % NEUTROPHILS (test code = 1008) 64.8 % LYMPHOCYTES (test code = 1010) 22.4 % MONOCYTES (test code = 1011) 11.0 % EOSINOPHILS (test code = 1012) 1.0 % BASOPHILS (test code = 1013) 0.8 % PLATELET COUNT (test code = 1015) 145 K/UL CBC W/AUTO [id number] 00:00:00 Test Item Value Reference Range Interpretation Comments WBC (test code = 1001) 4.8 K/UL RBC (test code = 1002) 5.39 M/UL HEMOGLOBIN (test code = 1003) 13.2 G/DL HEMATOCRIT (test code = 1004) 41.7 % MCV (test code = 1005) 77.4 fL MCH (test code = 1006) 24.5 PG MCHC (test code = 1007) 31.7 G/DL RDW (test code = 1038) 18.3 % NEUTROPHILS (test code = 1008) 64.8 % LYMPHOCYTES (test code = 1010) 22.4 % MONOCYTES (test code = 1011) 11.0 % EOSINOPHILS (test code = 1012) 1.0 % BASOPHILS (test code = 1013) 0.8 % PLATELET COUNT (test code = 1015) 145 K/UL CBC W/AUTO [id number] 00:00:00 Test Item Value Reference Range Interpretation Comments WBC (test code = 1001) 4.8 K/UL RBC (test code = 1002) 5.39 M/UL HEMOGLOBIN (test code = 1003) 13.2 G/DL HEMATOCRIT (test code = 1004) 41.7 % MCV (test code = 1005) 77.4 fL MCH (test code = 1006) 24.5 PG MCHC (test code = 1007) 31.7 G/DL RDW (test code = 1038) 18.3 % NEUTROPHILS (test code = 1008) 64.8 % LYMPHOCYTES (test code = 1010) 22.4 % MONOCYTES (test code = 1011) 11.0 % EOSINOPHILS (test code = 1012) 1.0 % BASOPHILS (test code = 1013) 0.8 % PLATELET COUNT (test code = 1015) 145 K/UL COMPREHENSIVE METABOLIC [id number] 00:00:00 Test Item Value Reference Range Interpretation Comments GLUCOSE (test code = 2217) 287 MG/DL BUN (test code = 2208) 10 MG/DL CREATININE (test code = 2214) 0.91 MG/DL eGFR AMER. (test code 118 ML/MIN/1.73 = 67891) eGFR NON- AMER. (test 102 ML/MIN/1.73 code = 63263) CALC BUN/CREAT (test code = 11 RATIO 2235) SODIUM (test code = 2231) 141 MEQ/L POTASSIUM (test code = 2228) 3.9 MEQ/L CHLORIDE (test code = 2215) 102 MEQ/L CARBON DIOXIDE (test code = 26 MEQ/L 2206) CALCIUM (test code = 2209) 9.1 MG/DL PROTEIN, TOTAL (test code = 7.2 G/DL 2228) ALBUMIN (test code = 2201) 4.7 G/DL CALC GLOBULIN (test code = 2.5 G/DL 2240) CALC A/G RATIO (test code = 1.9 RATIO 2234) BILIRUBIN, TOTAL (test code = 0.2 MG/DL 2206) ALKALINE PHOSPHATASE (test 68 U/L code = 220) AST (test code = 2218) 14 U/L ALT (test code = 2219) 16 U/L COMPREHENSIVE METABOLIC [id number] 00:00:00 Test Item Value Reference Range Interpretation Comments GLUCOSE (test code = 2217) 287 MG/DL BUN (test code = 2208) 10 MG/DL CREATININE (test code = 2214) 0.91 MG/DL eGFR AMER. (test code 118 ML/MIN/1.73 = 63875) eGFR NON- AMER. (test 102 ML/MIN/1.73 code = 53226) CALC BUN/CREAT (test code = 11 RATIO 2235) SODIUM (test code = 2231) 141 MEQ/L POTASSIUM (test code = 2228) 3.9 MEQ/L CHLORIDE (test code = 2215) 102 MEQ/L CARBON DIOXIDE (test code = 26 MEQ/L 2206) CALCIUM (test code = 2209) 9.1 MG/DL PROTEIN, TOTAL (test code = 7.2 G/DL 2228) ALBUMIN (test code = 2201) 4.7 G/DL CALC GLOBULIN (test code = 2.5 G/DL 2240) CALC A/G RATIO (test code = 1.9 RATIO 2234) BILIRUBIN, TOTAL (test code = 0.2 MG/DL 2206) ALKALINE PHOSPHATASE (test 68 U/L code = 2204) AST (test code = 2218) 14 U/L ALT (test code = 2219) 16 U/L LIPID [id number] 00:00:00 Test Item Value Reference Range Interpretation Comments CHOLESTEROL (test code = 2210) 117 MG/DL TRIGLYCERIDES (test code = 2232) 386 MG/DL HDL CHOLESTEROL (test code = 2220) 25 MG/DL CALC LDL CHOL (test code = 2237) 51 MG/DL RISK RATIO LDL/HDL (test code = 2.04 RATIO 2238) LIPID [id number] 00:00:00 Test Item Value Reference Range Interpretation Comments CHOLESTEROL (test code = 2210) 117 MG/DL TRIGLYCERIDES (test code = 2232) 386 MG/DL HDL CHOLESTEROL (test code = 2220) 25 MG/DL CALC LDL CHOL (test code = 2237) 51 MG/DL RISK RATIO LDL/HDL (test code = 2.04 RATIO 2238) MICROALBUMIN, [id number] 00:00:00 Test Item Value Reference Range Interpretation Comments ALBUMIN, URINE, RANDOM (test code = 0.6 MG/DL 14246) MICROALBUMIN, [id number] 00:00:00 Test Item Value Reference Range Interpretation Comments ALBUMIN, URINE, RANDOM (test code = 0.6 MG/DL 42420) HEMOGLOBIN [id number] 00:00:00 Test Item Value Reference Range Interpretation Comments HEMOGLOBIN A1c (test code = 39286) 9.6 % HEMOGLOBIN [id number] 00:00:00 Test Item Value Reference Range Interpretation Comments HEMOGLOBIN A1c (test code = 31704) 9.6 % HEMOGLOBIN [id number] 00:00:00 Test Item Value Reference Range Interpretation Comments HEMOGLOBIN A1c (test code = 20729) 9.6 % CBC W/AUTO [id number] 00:00:00 Test Item Value Reference Range Interpretation Comments WBC (test code = 1001) 4.8 K/UL RBC (test code = 1002) 5.39 M/UL HEMOGLOBIN (test code = 1003) 13.2 G/DL HEMATOCRIT (test code = 1004) 41.7 % MCV (test code = 1005) 77.4 fL MCH (test code = 1006) 24.5 PG MCHC (test code = 1007) 31.7 G/DL RDW (test code = 1038) 18.3 % NEUTROPHILS (test code = 1008) 64.8 % LYMPHOCYTES (test code = 1010) 22.4 % MONOCYTES (test code = 1011) 11.0 % EOSINOPHILS (test code = 1012) 1.0 % BASOPHILS (test code = 1013) 0.8 % PLATELET COUNT (test code = 1015) 145 K/UL CBC W/AUTO [id number] 00:00:00 Test Item Value Reference Range Interpretation Comments WBC (test code = 1001) 4.8 K/UL RBC (test code = 1002) 5.39 M/UL HEMOGLOBIN (test code = 1003) 13.2 G/DL HEMATOCRIT (test code = 1004) 41.7 % MCV (test code = 1005) 77.4 fL MCH (test code = 1006) 24.5 PG MCHC (test code = 1007) 31.7 G/DL RDW (test code = 1038) 18.3 % NEUTROPHILS (test code = 1008) 64.8 % LYMPHOCYTES (test code = 1010) 22.4 % MONOCYTES (test code = 1011) 11.0 % EOSINOPHILS (test code = 1012) 1.0 % BASOPHILS (test code = 1013) 0.8 % PLATELET COUNT (test code = 1015) 145 K/UL CBC W/AUTO [id number] 00:00:00 Test Item Value Reference Range Interpretation Comments WBC (test code = 1001) 4.8 K/UL RBC (test code = 1002) 5.39 M/UL HEMOGLOBIN (test code = 1003) 13.2 G/DL HEMATOCRIT (test code = 1004) 41.7 % MCV (test code = 1005) 77.4 fL MCH (test code = 1006) 24.5 PG MCHC (test code = 1007) 31.7 G/DL RDW (test code = 1038) 18.3 % NEUTROPHILS (test code = 1008) 64.8 % LYMPHOCYTES (test code = 1010) 22.4 % MONOCYTES (test code = 1011) 11.0 % EOSINOPHILS (test code = 1012) 1.0 % BASOPHILS (test code = 1013) 0.8 % PLATELET COUNT (test code = 1015) 145 K/UL COMPREHENSIVE METABOLIC [id number] 00:00:00 Test Item Value Reference Range Interpretation Comments GLUCOSE (test code = 2217) 287 MG/DL BUN (test code = 2208) 10 MG/DL CREATININE (test code = 2214) 0.91 MG/DL eGFR AMER. (test code 118 ML/MIN/1.73 = 75608) eGFR NON- AMER. (test 102 ML/MIN/1.73 code = 77062) CALC BUN/CREAT (test code = 11 RATIO 2235) SODIUM (test code = 2231) 141 MEQ/L POTASSIUM (test code = 2228) 3.9 MEQ/L CHLORIDE (test code = 2215) 102 MEQ/L CARBON DIOXIDE (test code = 26 MEQ/L 2205) CALCIUM (test code = 2209) 9.1 MG/DL PROTEIN, TOTAL (test code = 7.2 G/DL 2228) ALBUMIN (test code = 2201) 4.7 G/DL CALC GLOBULIN (test code = 2.5 G/DL 2240) CALC A/G RATIO (test code = 1.9 RATIO 2234) BILIRUBIN, TOTAL (test code = 0.2 MG/DL 2206) ALKALINE PHOSPHATASE (test 68 U/L code = 2204) AST (test code = 2218) 14 U/L ALT (test code = 2219) 16 U/L COMPREHENSIVE METABOLIC [id number] 00:00:00 Test Item Value Reference Range Interpretation Comments GLUCOSE (test code = 2217) 287 MG/DL BUN (test code = 2208) 10 MG/DL CREATININE (test code = 2214) 0.91 MG/DL eGFR AMER. (test code 118 ML/MIN/1.73 = 08677) eGFR NON- AMER. (test 102 ML/MIN/1.73 code = 66091) CALC BUN/CREAT (test code = 11 RATIO 2235) SODIUM (test code = 2231) 141 MEQ/L POTASSIUM (test code = 2228) 3.9 MEQ/L CHLORIDE (test code = 2215) 102 MEQ/L CARBON DIOXIDE (test code = 26 MEQ/L 2205) CALCIUM (test code = 2209) 9.1 MG/DL PROTEIN, TOTAL (test code = 7.2 G/DL 2228) ALBUMIN (test code = 2201) 4.7 G/DL CALC GLOBULIN (test code = 2.5 G/DL 2240) CALC A/G RATIO (test code = 1.9 RATIO 2234) BILIRUBIN, TOTAL (test code = 0.2 MG/DL 7) ALKALINE PHOSPHATASE (test 68 U/L code = 2204) AST (test code = 2218) 14 U/L ALT (test code = 2219) 16 U/L LIPID [id number] 00:00:00 Test Item Value Reference Range Interpretation Comments CHOLESTEROL (test code = 2210) 117 MG/DL TRIGLYCERIDES (test code = 2232) 386 MG/DL HDL CHOLESTEROL (test code = 2220) 25 MG/DL CALC LDL CHOL (test code = 2237) 51 MG/DL RISK RATIO LDL/HDL (test code = 2.04 RATIO 2238) LIPID [id number] 00:00:00 Test Item Value Reference Range Interpretation Comments CHOLESTEROL (test code = 2210) 117 MG/DL TRIGLYCERIDES (test code = 2232) 386 MG/DL HDL CHOLESTEROL (test code = 2220) 25 MG/DL CALC LDL CHOL (test code = 2237) 51 MG/DL RISK RATIO LDL/HDL (test code = 2.04 RATIO 2238) MICROALBUMIN, [id number] 00:00:00 Test Item Value Reference Range Interpretation Comments ALBUMIN, URINE, RANDOM (test code = 0.6 MG/DL 77343) MICROALBUMIN, [id number] 00:00:00 Test Item Value Reference Range Interpretation Comments ALBUMIN, URINE, RANDOM (test code = 0.6 MG/DL 70245) CBC W/AUTO [id number] 00:00:00 Test Item Value Reference Range Interpretation Comments WBC (test code = 1001) 5.7 K/UL RBC (test code = 1002) 5.19 M/UL HEMOGLOBIN (test code = 1003) 10.3 G/DL HEMATOCRIT (test code = 1004) 35.2 % MCV (test code = 1005) 67.8 fL MCH (test code = 1006) 19.8 PG MCHC (test code = 1007) 29.3 G/DL RDW (test code = 1038) 19.1 % NEUTROPHILS (test code = 1008) 70.4 % LYMPHOCYTES (test code = 1010) 18.1 % MONOCYTES (test code = 1011) 8.2 % EOSINOPHILS (test code = 1012) 2.1 % BASOPHILS (test code = 1013) 1.2 % PLATELET COUNT (test code = 1015) 223 K/UL CBC W/AUTO [id number] 00:00:00 Test Item Value Reference Range Interpretation Comments WBC (test code = 1001) 5.7 K/UL RBC (test code = 1002) 5.19 M/UL HEMOGLOBIN (test code = 1003) 10.3 G/DL HEMATOCRIT (test code = 1004) 35.2 % MCV (test code = 1005) 67.8 fL MCH (test code = 1006) 19.8 PG MCHC (test code = 1007) 29.3 G/DL RDW (test code = 1038) 19.1 % NEUTROPHILS (test code = 1008) 70.4 % LYMPHOCYTES (test code = 1010) 18.1 % MONOCYTES (test code = 1011) 8.2 % EOSINOPHILS (test code = 1012) 2.1 % BASOPHILS (test code = 1013) 1.2 % PLATELET COUNT (test code = 1015) 223 K/UL CBC W/AUTO [id number] 00:00:00 Test Item Value Reference Range Interpretation Comments WBC (test code = 1001) 5.7 K/UL RBC (test code = 1002) 5.19 M/UL HEMOGLOBIN (test code = 1003) 10.3 G/DL HEMATOCRIT (test code = 1004) 35.2 % MCV (test code = 1005) 67.8 fL MCH (test code = 1006) 19.8 PG MCHC (test code = 1007) 29.3 G/DL RDW (test code = 1038) 19.1 % NEUTROPHILS (test code = 1008) 70.4 % LYMPHOCYTES (test code = 1010) 18.1 % MONOCYTES (test code = 1011) 8.2 % EOSINOPHILS (test code = 1012) 2.1 % BASOPHILS (test code = 1013) 1.2 % PLATELET COUNT (test code = 1015) 223 K/UL LIPID [id number] 00:00:00 Test Item Value Reference Range Interpretation Comments CHOLESTEROL (test code = 2210) 173 MG/DL TRIGLYCERIDES (test code = 2232) 782 MG/DL HDL CHOLESTEROL (test code = 22 MG/DL 2220) CALC LDL CHOL (test code = 2237) NOTE MG/DL RISK RATIO LDL/HDL (test code = (NOTE) RATIO 2238) LIPID [id number] 00:00:00 Test Item Value Reference Range Interpretation Comments CHOLESTEROL (test code = 2210) 173 MG/DL TRIGLYCERIDES (test code = 2232) 782 MG/DL HDL CHOLESTEROL (test code = 22 MG/DL 0) CALC LDL CHOL (test code = 2237) NOTE MG/DL RISK RATIO LDL/HDL (test code = (NOTE) RATIO 2238) HEMOGLOBIN [id number] 00:00:00 Test Item Value Reference Range Interpretation Comments HEMOGLOBIN A1c (test code = 54441) 10.7 % HEMOGLOBIN [id number] 00:00:00 Test Item Value Reference Range Interpretation Comments HEMOGLOBIN A1c (test code = 73136) 10.7 % HEMOGLOBIN [id number] 00:00:00 Test Item Value Reference Range Interpretation Comments HEMOGLOBIN A1c (test code = 15554) 10.7 % COMPREHENSIVE METABOLIC [id number] 00:00:00 Test Item Value Reference Range Interpretation Comments GLUCOSE (test code = 2217) 419 MG/DL BUN (test code = 2208) 13 MG/DL CREATININE (test code = 2214) 1.13 MG/DL eGFR AMER. (test code 91 ML/MIN/1.73 = 61341) eGFR NON- AMER. (test 79 ML/MIN/1.73 code = 77012) CALC BUN/CREAT (test code = 12 RATIO 2235) SODIUM (test code = 2231) 134 MEQ/L POTASSIUM (test code = 2228) 4.2 MEQ/L CHLORIDE (test code = 2215) 94 MEQ/L CARBON DIOXIDE (test code = 21 MEQ/L 2205) CALCIUM (test code = 2209) 9.5 MG/DL PROTEIN, TOTAL (test code = 8.1 G/DL 2228) ALBUMIN (test code = 2201) 5.0 G/DL CALC GLOBULIN (test code = 3.1 G/DL 2240) CALC A/G RATIO (test code = 1.6 RATIO 2234) BILIRUBIN, TOTAL (test code = 0.3 MG/DL 2206) ALKALINE PHOSPHATASE (test 85 U/L code = 2204) AST (test code = 2218) 10 U/L ALT (test code = 2219) 11 U/L COMPREHENSIVE METABOLIC [id number] 00:00:00 Test Item Value Reference Range Interpretation Comments GLUCOSE (test code = 2217) 419 MG/DL BUN (test code = 2208) 13 MG/DL CREATININE (test code = 2214) 1.13 MG/DL eGFR AMER. (test code 91 ML/MIN/1.73 = 44890) eGFR NON- AMER. (test 79 ML/MIN/1.73 code = 97641) CALC BUN/CREAT (test code = 12 RATIO 2235) SODIUM (test code = 2231) 134 MEQ/L POTASSIUM (test code = 2228) 4.2 MEQ/L CHLORIDE (test code = 2215) 94 MEQ/L CARBON DIOXIDE (test code = 21 MEQ/L 2205) CALCIUM (test code = 2209) 9.5 MG/DL PROTEIN, TOTAL (test code = 8.1 G/DL 2228) ALBUMIN (test code = 2201) 5.0 G/DL CALC GLOBULIN (test code = 3.1 G/DL 2239) CALC A/G RATIO (test code = 1.6 RATIO 2233) BILIRUBIN, TOTAL (test code = 0.3 MG/DL 2206) ALKALINE PHOSPHATASE (test 85 U/L code = 2204) AST (test code = 2218) 10 U/L ALT (test code = 2219) 11 U/L CBC W/AUTO [id number] 00:00:00 Test Item Value Reference Range Interpretation Comments WBC (test code = 1001) 5.7 K/UL RBC (test code = 1002) 5.19 M/UL HEMOGLOBIN (test code = 1003) 10.3 G/DL HEMATOCRIT (test code = 1004) 35.2 % MCV (test code = 1005) 67.8 fL MCH (test code = 1006) 19.8 PG MCHC (test code = 1007) 29.3 G/DL RDW (test code = 1038) 19.1 % NEUTROPHILS (test code = 1008) 70.4 % LYMPHOCYTES (test code = 1010) 18.1 % MONOCYTES (test code = 1011) 8.2 % EOSINOPHILS (test code = 1012) 2.1 % BASOPHILS (test code = 1013) 1.2 % PLATELET COUNT (test code = 1015) 223 K/UL CBC W/AUTO [id number] 00:00:00 Test Item Value Reference Range Interpretation Comments WBC (test code = 1001) 5.7 K/UL RBC (test code = 1002) 5.19 M/UL HEMOGLOBIN (test code = 1003) 10.3 G/DL HEMATOCRIT (test code = 1004) 35.2 % MCV (test code = 1005) 67.8 fL MCH (test code = 1006) 19.8 PG MCHC (test code = 1007) 29.3 G/DL RDW (test code = 1038) 19.1 % NEUTROPHILS (test code = 1008) 70.4 % LYMPHOCYTES (test code = 1010) 18.1 % MONOCYTES (test code = 1011) 8.2 % EOSINOPHILS (test code = 1012) 2.1 % BASOPHILS (test code = 1013) 1.2 % PLATELET COUNT (test code = 1015) 223 K/UL CBC W/AUTO [id number] 00:00:00 Test Item Value Reference Range Interpretation Comments WBC (test code = 1001) 5.7 K/UL RBC (test code = 1002) 5.19 M/UL HEMOGLOBIN (test code = 1003) 10.3 G/DL HEMATOCRIT (test code = 1004) 35.2 % MCV (test code = 1005) 67.8 fL MCH (test code = 1006) 19.8 PG MCHC (test code = 1007) 29.3 G/DL RDW (test code = 1038) 19.1 % NEUTROPHILS (test code = 1008) 70.4 % LYMPHOCYTES (test code = 1010) 18.1 % MONOCYTES (test code = 1011) 8.2 % EOSINOPHILS (test code = 1012) 2.1 % BASOPHILS (test code = 1013) 1.2 % PLATELET COUNT (test code = 1015) 223 K/UL LIPID [id number] 00:00:00 Test Item Value Reference Range Interpretation Comments CHOLESTEROL (test code = 2210) 173 MG/DL TRIGLYCERIDES (test code = 2232) 782 MG/DL HDL CHOLESTEROL (test code = 22 MG/DL 2220) CALC LDL CHOL (test code = 2237) NOTE MG/DL RISK RATIO LDL/HDL (test code = (NOTE) RATIO 2238) LIPID [id number] 00:00:00 Test Item Value Reference Range Interpretation Comments CHOLESTEROL (test code = 2210) 173 MG/DL TRIGLYCERIDES (test code = 2232) 782 MG/DL HDL CHOLESTEROL (test code = 22 MG/DL 0) CALC LDL CHOL (test code = 2237) NOTE MG/DL RISK RATIO LDL/HDL (test code = (NOTE) RATIO 2238) HEMOGLOBIN [id number] 00:00:00 Test Item Value Reference Range Interpretation Comments HEMOGLOBIN A1c (test code = 67250) 10.7 % HEMOGLOBIN [id number] 00:00:00 Test Item Value Reference Range Interpretation Comments HEMOGLOBIN A1c (test code = 29620) 10.7 % HEMOGLOBIN [id number] 00:00:00 Test Item Value Reference Range Interpretation Comments HEMOGLOBIN A1c (test code = 84715) 10.7 % COMPREHENSIVE METABOLIC [id number] 00:00:00 Test Item Value Reference Range Interpretation Comments GLUCOSE (test code = 2217) 419 MG/DL BUN (test code = 2208) 13 MG/DL CREATININE (test code = 2214) 1.13 MG/DL eGFR AMER. (test code 91 ML/MIN/1.73 = 44317) eGFR NON- AMER. (test 79 ML/MIN/1.73 code = 43853) CALC BUN/CREAT (test code = 12 RATIO 2235) SODIUM (test code = 2231) 134 MEQ/L POTASSIUM (test code = 2228) 4.2 MEQ/L CHLORIDE (test code = 2215) 94 MEQ/L CARBON DIOXIDE (test code = 21 MEQ/L 6) CALCIUM (test code = 2209) 9.5 MG/DL PROTEIN, TOTAL (test code = 8.1 G/DL 2228) ALBUMIN (test code = 2201) 5.0 G/DL CALC GLOBULIN (test code = 3.1 G/DL 2240) CALC A/G RATIO (test code = 1.6 RATIO 2234) BILIRUBIN, TOTAL (test code = 0.3 MG/DL 2206) ALKALINE PHOSPHATASE (test 85 U/L code = 2204) AST (test code = 2218) 10 U/L ALT (test code = 2219) 11 U/L COMPREHENSIVE METABOLIC [id number] 00:00:00 Test Item Value Reference Range Interpretation Comments GLUCOSE (test code = 2217) 419 MG/DL BUN (test code = 2208) 13 MG/DL CREATININE (test code = 2214) 1.13 MG/DL eGFR AMER. (test code 91 ML/MIN/1.73 = 29402) eGFR NON- AMER. (test 79 ML/MIN/1.73 code = 53115) CALC BUN/CREAT (test code = 12 RATIO 2235) SODIUM (test code = 2231) 134 MEQ/L POTASSIUM (test code = 2228) 4.2 MEQ/L CHLORIDE (test code = 2215) 94 MEQ/L CARBON DIOXIDE (test code = 21 MEQ/L 2205) CALCIUM (test code = 2209) 9.5 MG/DL PROTEIN, TOTAL (test code = 8.1 G/DL 2228) ALBUMIN (test code = 2201) 5.0 G/DL CALC GLOBULIN (test code = 3.1 G/DL 2239) CALC A/G RATIO (test code = 1.6 RATIO 2233) BILIRUBIN, TOTAL (test code = 0.3 MG/DL 2206) ALKALINE PHOSPHATASE (test 85 U/L code = 2204) AST (test code = 2218) 10 U/L ALT (test code = 2219) 11 U/L CBC W/AUTO [id number] 00:00:00 Test Item Value Reference Range Interpretation Comments WBC (test code = 1001) 5.7 K/UL RBC (test code = 1002) 5.19 M/UL HEMOGLOBIN (test code = 1003) 10.3 G/DL HEMATOCRIT (test code = 1004) 35.2 % MCV (test code = 1005) 67.8 fL MCH (test code = 1006) 19.8 PG MCHC (test code = 1007) 29.3 G/DL RDW (test code = 1038) 19.1 % NEUTROPHILS (test code = 1008) 70.4 % LYMPHOCYTES (test code = 1010) 18.1 % MONOCYTES (test code = 1011) 8.2 % EOSINOPHILS (test code = 1012) 2.1 % BASOPHILS (test code = 1013) 1.2 % PLATELET COUNT (test code = 1015) 223 K/UL CBC W/AUTO [id number] 00:00:00 Test Item Value Reference Range Interpretation Comments WBC (test code = 1001) 5.7 K/UL RBC (test code = 1002) 5.19 M/UL HEMOGLOBIN (test code = 1003) 10.3 G/DL HEMATOCRIT (test code = 1004) 35.2 % MCV (test code = 1005) 67.8 fL MCH (test code = 1006) 19.8 PG MCHC (test code = 1007) 29.3 G/DL RDW (test code = 1038) 19.1 % NEUTROPHILS (test code = 1008) 70.4 % LYMPHOCYTES (test code = 1010) 18.1 % MONOCYTES (test code = 1011) 8.2 % EOSINOPHILS (test code = 1012) 2.1 % BASOPHILS (test code = 1013) 1.2 % PLATELET COUNT (test code = 1015) 223 K/UL CBC W/AUTO [id number] 00:00:00 Test Item Value Reference Range Interpretation Comments WBC (test code = 1001) 5.7 K/UL RBC (test code = 1002) 5.19 M/UL HEMOGLOBIN (test code = 1003) 10.3 G/DL HEMATOCRIT (test code = 1004) 35.2 % MCV (test code = 1005) 67.8 fL MCH (test code = 1006) 19.8 PG MCHC (test code = 1007) 29.3 G/DL RDW (test code = 1038) 19.1 % NEUTROPHILS (test code = 1008) 70.4 % LYMPHOCYTES (test code = 1010) 18.1 % MONOCYTES (test code = 1011) 8.2 % EOSINOPHILS (test code = 1012) 2.1 % BASOPHILS (test code = 1013) 1.2 % PLATELET COUNT (test code = 1015) 223 K/UL LIPID [id number] 00:00:00 Test Item Value Reference Range Interpretation Comments CHOLESTEROL (test code = 2210) 173 MG/DL TRIGLYCERIDES (test code = 2232) 782 MG/DL HDL CHOLESTEROL (test code = 22 MG/DL 2220) CALC LDL CHOL (test code = 2237) NOTE MG/DL RISK RATIO LDL/HDL (test code = (NOTE) RATIO 2238) LIPID [id number] 00:00:00 Test Item Value Reference Range Interpretation Comments CHOLESTEROL (test code = 2210) 173 MG/DL TRIGLYCERIDES (test code = 2232) 782 MG/DL HDL CHOLESTEROL (test code = 22 MG/DL 2220) CALC LDL CHOL (test code = 2237) NOTE MG/DL RISK RATIO LDL/HDL (test code = (NOTE) RATIO 2238) HEMOGLOBIN [id number] 00:00:00 Test Item Value Reference Range Interpretation Comments HEMOGLOBIN A1c (test code = 57311) 10.7 % HEMOGLOBIN [id number] 00:00:00 Test Item Value Reference Range Interpretation Comments HEMOGLOBIN A1c (test code = 14044) 10.7 % HEMOGLOBIN [id number] 00:00:00 Test Item Value Reference Range Interpretation Comments HEMOGLOBIN A1c (test code = 02704) 10.7 % COMPREHENSIVE METABOLIC [id number] 00:00:00 Test Item Value Reference Range Interpretation Comments GLUCOSE (test code = 2217) 419 MG/DL BUN (test code = 2208) 13 MG/DL CREATININE (test code = 2214) 1.13 MG/DL eGFR AMER. (test code 91 ML/MIN/1.73 = 25155) eGFR NON- AMER. (test 79 ML/MIN/1.73 code = 84416) CALC BUN/CREAT (test code = 12 RATIO 2235) SODIUM (test code = 2231) 134 MEQ/L POTASSIUM (test code = 2228) 4.2 MEQ/L CHLORIDE (test code = 2215) 94 MEQ/L CARBON DIOXIDE (test code = 21 MEQ/L 2205) CALCIUM (test code = 2209) 9.5 MG/DL PROTEIN, TOTAL (test code = 8.1 G/DL 2228) ALBUMIN (test code = 2201) 5.0 G/DL CALC GLOBULIN (test code = 3.1 G/DL 2240) CALC A/G RATIO (test code = 1.6 RATIO 4) BILIRUBIN, TOTAL (test code = 0.3 MG/DL 2206) ALKALINE PHOSPHATASE (test 85 U/L code = 2204) AST (test code = 2218) 10 U/L ALT (test code = 2219) 11 U/L COMPREHENSIVE METABOLIC [id number] 00:00:00 Test Item Value Reference Range Interpretation Comments GLUCOSE (test code = 2217) 419 MG/DL BUN (test code = 2208) 13 MG/DL CREATININE (test code = 2214) 1.13 MG/DL eGFR AMER. (test code 91 ML/MIN/1.73 = 49547) eGFR NON- AMER. (test 79 ML/MIN/1.73 code = 37586) CALC BUN/CREAT (test code = 12 RATIO 2235) SODIUM (test code = 2231) 134 MEQ/L POTASSIUM (test code = 2228) 4.2 MEQ/L CHLORIDE (test code = 2215) 94 MEQ/L CARBON DIOXIDE (test code = 21 MEQ/L 2205) CALCIUM (test code = 2209) 9.5 MG/DL PROTEIN, TOTAL (test code = 8.1 G/DL 222) ALBUMIN (test code = 2201) 5.0 G/DL CALC GLOBULIN (test code = 3.1 G/DL 2240) CALC A/G RATIO (test code = 1.6 RATIO 2234) BILIRUBIN, TOTAL (test code = 0.3 MG/DL 220) ALKALINE PHOSPHATASE (test 85 U/L code = 2204) AST (test code = 2218) 10 U/L ALT (test code = 2219) 11 U/L CBC W/AUTO [id number] 00:00:00 Test Item Value Reference Range Interpretation Comments WBC (test code = 1001) 4.7 K/UL RBC (test code = 1002) 4.91 M/UL HEMOGLOBIN (test code = 1003) 9.8 G/DL HEMATOCRIT (test code = 1004) 34.0 % MCV (test code = 1005) 69.2 fL MCH (test code = 1006) 20.0 PG MCHC (test code = 1007) 28.8 G/DL RDW (test code = 1038) 18.8 % NEUTROPHILS (test code = 1008) 65.7 % LYMPHOCYTES (test code = 1010) 22.2 % MONOCYTES (test code = 1011) 9.5 % EOSINOPHILS (test code = 1012) 1.5 % BASOPHILS (test code = 1013) 1.1 % PLATELET COUNT (test code = 1015) 145 K/UL CBC W/AUTO [id number] 00:00:00 Test Item Value Reference Range Interpretation Comments WBC (test code = 1001) 4.7 K/UL RBC (test code = 1002) 4.91 M/UL HEMOGLOBIN (test code = 1003) 9.8 G/DL HEMATOCRIT (test code = 1004) 34.0 % MCV (test code = 1005) 69.2 fL MCH (test code = 1006) 20.0 PG MCHC (test code = 1007) 28.8 G/DL RDW (test code = 1038) 18.8 % NEUTROPHILS (test code = 1008) 65.7 % LYMPHOCYTES (test code = 1010) 22.2 % MONOCYTES (test code = 1011) 9.5 % EOSINOPHILS (test code = 1012) 1.5 % BASOPHILS (test code = 1013) 1.1 % PLATELET COUNT (test code = 1015) 145 K/UL CBC W/AUTO [id number] 00:00:00 Test Item Value Reference Range Interpretation Comments WBC (test code = 1001) 4.7 K/UL RBC (test code = 1002) 4.91 M/UL HEMOGLOBIN (test code = 1003) 9.8 G/DL HEMATOCRIT (test code = 1004) 34.0 % MCV (test code = 1005) 69.2 fL MCH (test code = 1006) 20.0 PG MCHC (test code = 1007) 28.8 G/DL RDW (test code = 1038) 18.8 % NEUTROPHILS (test code = 1008) 65.7 % LYMPHOCYTES (test code = 1010) 22.2 % MONOCYTES (test code = 1011) 9.5 % EOSINOPHILS (test code = 1012) 1.5 % BASOPHILS (test code = 1013) 1.1 % PLATELET COUNT (test code = 1015) 145 K/UL LIPID [id number] 00:00:00 Test Item Value Reference Range Interpretation Comments CHOLESTEROL (test code = 2210) 145 MG/DL TRIGLYCERIDES (test code = 2232) 506 MG/DL HDL CHOLESTEROL (test code = 23 MG/DL 2220) CALC LDL CHOL (test code = 2237) NOTE MG/DL RISK RATIO LDL/HDL (test code = (NOTE) RATIO 2238) LIPID [id number] 00:00:00 Test Item Value Reference Range Interpretation Comments CHOLESTEROL (test code = 2210) 145 MG/DL TRIGLYCERIDES (test code = 2232) 506 MG/DL HDL CHOLESTEROL (test code = 23 MG/DL 2220) CALC LDL CHOL (test code = 2237) NOTE MG/DL RISK RATIO LDL/HDL (test code = (NOTE) RATIO 2238) HEMOGLOBIN [id number] 00:00:00 Test Item Value Reference Range Interpretation Comments HEMOGLOBIN A1c (test code = 17665) 10.6 % HEMOGLOBIN [id number] 00:00:00 Test Item Value Reference Range Interpretation Comments HEMOGLOBIN A1c (test code = 12635) 10.6 % HEMOGLOBIN [id number] 00:00:00 Test Item Value Reference Range Interpretation Comments HEMOGLOBIN A1c (test code = 62720) 10.6 % COMPREHENSIVE METABOLIC [id number] 00:00:00 Test Item Value Reference Range Interpretation Comments GLUCOSE (test code = 2217) 352 MG/DL BUN (test code = 2208) 9 MG/DL CREATININE (test code = 2214) 0.98 MG/DL eGFR AMER. (test code 109 ML/MIN/1.73 = 69835) eGFR NON- AMER. (test 94 ML/MIN/1.73 code = 91007) CALC BUN/CREAT (test code = 9 RATIO 2235) SODIUM (test code = 2231) 137 MEQ/L POTASSIUM (test code = 2228) 3.9 MEQ/L CHLORIDE (test code = 2215) 97 MEQ/L CARBON DIOXIDE (test code = 26 MEQ/L 2205) CALCIUM (test code = 2209) 8.9 MG/DL PROTEIN, TOTAL (test code = 7.8 G/DL 2228) ALBUMIN (test code = 2201) 4.8 G/DL CALC GLOBULIN (test code = 3.0 G/DL 2239) CALC A/G RATIO (test code = 1.6 RATIO 4) BILIRUBIN, TOTAL (test code = 0.3 MG/DL 2206) ALKALINE PHOSPHATASE (test 79 U/L code = 2204) AST (test code = 2218) 14 U/L ALT (test code = 2219) 11 U/L COMPREHENSIVE METABOLIC [id number] 00:00:00 Test Item Value Reference Range Interpretation Comments GLUCOSE (test code = 2217) 352 MG/DL BUN (test code = 2208) 9 MG/DL CREATININE (test code = 2214) 0.98 MG/DL eGFR AMER. (test code 109 ML/MIN/1.73 = 15396) eGFR NON- AMER. (test 94 ML/MIN/1.73 code = 36502) CALC BUN/CREAT (test code = 9 RATIO 2235) SODIUM (test code = 2231) 137 MEQ/L POTASSIUM (test code = 2228) 3.9 MEQ/L CHLORIDE (test code = 2215) 97 MEQ/L CARBON DIOXIDE (test code = 26 MEQ/L 2205) CALCIUM (test code = 2209) 8.9 MG/DL PROTEIN, TOTAL (test code = 7.8 G/DL 2228) ALBUMIN (test code = 2201) 4.8 G/DL CALC GLOBULIN (test code = 3.0 G/DL 2239) CALC A/G RATIO (test code = 1.6 RATIO 2233) BILIRUBIN, TOTAL (test code = 0.3 MG/DL 2206) ALKALINE PHOSPHATASE (test 79 U/L code = 2204) AST (test code = 2218) 14 U/L ALT (test code = 2219) 11 U/L CBC W/AUTO [id number] 00:00:00 Test Item Value Reference Range Interpretation Comments WBC (test code = 1001) 4.7 K/UL RBC (test code = 1002) 4.91 M/UL HEMOGLOBIN (test code = 1003) 9.8 G/DL HEMATOCRIT (test code = 1004) 34.0 % MCV (test code = 1005) 69.2 fL MCH (test code = 1006) 20.0 PG MCHC (test code = 1007) 28.8 G/DL RDW (test code = 1038) 18.8 % NEUTROPHILS (test code = 1008) 65.7 % LYMPHOCYTES (test code = 1010) 22.2 % MONOCYTES (test code = 1011) 9.5 % EOSINOPHILS (test code = 1012) 1.5 % BASOPHILS (test code = 1013) 1.1 % PLATELET COUNT (test code = 1015) 145 K/UL CBC W/AUTO [id number] 00:00:00 Test Item Value Reference Range Interpretation Comments WBC (test code = 1001) 4.7 K/UL RBC (test code = 1002) 4.91 M/UL HEMOGLOBIN (test code = 1003) 9.8 G/DL HEMATOCRIT (test code = 1004) 34.0 % MCV (test code = 1005) 69.2 fL MCH (test code = 1006) 20.0 PG MCHC (test code = 1007) 28.8 G/DL RDW (test code = 1038) 18.8 % NEUTROPHILS (test code = 1008) 65.7 % LYMPHOCYTES (test code = 1010) 22.2 % MONOCYTES (test code = 1011) 9.5 % EOSINOPHILS (test code = 1012) 1.5 % BASOPHILS (test code = 1013) 1.1 % PLATELET COUNT (test code = 1015) 145 K/UL CBC W/AUTO [id number] 00:00:00 Test Item Value Reference Range Interpretation Comments WBC (test code = 1001) 4.7 K/UL RBC (test code = 1002) 4.91 M/UL HEMOGLOBIN (test code = 1003) 9.8 G/DL HEMATOCRIT (test code = 1004) 34.0 % MCV (test code = 1005) 69.2 fL MCH (test code = 1006) 20.0 PG MCHC (test code = 1007) 28.8 G/DL RDW (test code = 1038) 18.8 % NEUTROPHILS (test code = 1008) 65.7 % LYMPHOCYTES (test code = 1010) 22.2 % MONOCYTES (test code = 1011) 9.5 % EOSINOPHILS (test code = 1012) 1.5 % BASOPHILS (test code = 1013) 1.1 % PLATELET COUNT (test code = 1015) 145 K/UL LIPID [id number] 00:00:00 Test Item Value Reference Range Interpretation Comments CHOLESTEROL (test code = 2210) 145 MG/DL TRIGLYCERIDES (test code = 2232) 506 MG/DL HDL CHOLESTEROL (test code = 23 MG/DL 2220) CALC LDL CHOL (test code = 2237) NOTE MG/DL RISK RATIO LDL/HDL (test code = (NOTE) RATIO 2238) LIPID [id number] 00:00:00 Test Item Value Reference Range Interpretation Comments CHOLESTEROL (test code = 2210) 145 MG/DL TRIGLYCERIDES (test code = 2232) 506 MG/DL HDL CHOLESTEROL (test code = 23 MG/DL 2220) CALC LDL CHOL (test code = 2237) NOTE MG/DL RISK RATIO LDL/HDL (test code = (NOTE) RATIO 2238) HEMOGLOBIN [id number] 00:00:00 Test Item Value Reference Range Interpretation Comments HEMOGLOBIN A1c (test code = 96024) 10.6 % HEMOGLOBIN [id number] 00:00:00 Test Item Value Reference Range Interpretation Comments HEMOGLOBIN A1c (test code = 57693) 10.6 % HEMOGLOBIN [id number] 00:00:00 Test Item Value Reference Range Interpretation Comments HEMOGLOBIN A1c (test code = 57235) 10.6 % COMPREHENSIVE METABOLIC [id number] 00:00:00 Test Item Value Reference Range Interpretation Comments GLUCOSE (test code = 2217) 352 MG/DL BUN (test code = 2208) 9 MG/DL CREATININE (test code = 2214) 0.98 MG/DL eGFR AMER. (test code 109 ML/MIN/1.73 = 72644) eGFR NON- AMER. (test 94 ML/MIN/1.73 code = 98342) CALC BUN/CREAT (test code = 9 RATIO 2235) SODIUM (test code = 2231) 137 MEQ/L POTASSIUM (test code = 2228) 3.9 MEQ/L CHLORIDE (test code = 2215) 97 MEQ/L CARBON DIOXIDE (test code = 26 MEQ/L 2205) CALCIUM (test code = 2209) 8.9 MG/DL PROTEIN, TOTAL (test code = 7.8 G/DL 2228) ALBUMIN (test code = 2201) 4.8 G/DL CALC GLOBULIN (test code = 3.0 G/DL 2239) CALC A/G RATIO (test code = 1.6 RATIO 2234) BILIRUBIN, TOTAL (test code = 0.3 MG/DL 2206) ALKALINE PHOSPHATASE (test 79 U/L code = 2204) AST (test code = 2218) 14 U/L ALT (test code = 2219) 11 U/L COMPREHENSIVE METABOLIC [id number] 00:00:00 Test Item Value Reference Range Interpretation Comments GLUCOSE (test code = 2217) 352 MG/DL BUN (test code = 2208) 9 MG/DL CREATININE (test code = 2214) 0.98 MG/DL eGFR AMER. (test code 109 ML/MIN/1.73 = 51732) eGFR NON- AMER. (test 94 ML/MIN/1.73 code = 05786) CALC BUN/CREAT (test code = 9 RATIO 2235) SODIUM (test code = 2231) 137 MEQ/L POTASSIUM (test code = 2228) 3.9 MEQ/L CHLORIDE (test code = 2215) 97 MEQ/L CARBON DIOXIDE (test code = 26 MEQ/L 220) CALCIUM (test code = 2209) 8.9 MG/DL PROTEIN, TOTAL (test code = 7.8 G/DL 2228) ALBUMIN (test code = 2201) 4.8 G/DL CALC GLOBULIN (test code = 3.0 G/DL 2239) CALC A/G RATIO (test code = 1.6 RATIO 2233) BILIRUBIN, TOTAL (test code = 0.3 MG/DL 2206) ALKALINE PHOSPHATASE (test 79 U/L code = 2204) AST (test code = 2218) 14 U/L ALT (test code = 2219) 11 U/L CBC W/AUTO [id number] 00:00:00 Test Item Value Reference Range Interpretation Comments WBC (test code = 1001) 4.7 K/UL RBC (test code = 1002) 4.91 M/UL HEMOGLOBIN (test code = 1003) 9.8 G/DL HEMATOCRIT (test code = 1004) 34.0 % MCV (test code = 1005) 69.2 fL MCH (test code = 1006) 20.0 PG MCHC (test code = 1007) 28.8 G/DL RDW (test code = 1038) 18.8 % NEUTROPHILS (test code = 1008) 65.7 % LYMPHOCYTES (test code = 1010) 22.2 % MONOCYTES (test code = 1011) 9.5 % EOSINOPHILS (test code = 1012) 1.5 % BASOPHILS (test code = 1013) 1.1 % PLATELET COUNT (test code = 1015) 145 K/UL CBC W/AUTO [id number] 00:00:00 Test Item Value Reference Range Interpretation Comments WBC (test code = 1001) 4.7 K/UL RBC (test code = 1002) 4.91 M/UL HEMOGLOBIN (test code = 1003) 9.8 G/DL HEMATOCRIT (test code = 1004) 34.0 % MCV (test code = 1005) 69.2 fL MCH (test code = 1006) 20.0 PG MCHC (test code = 1007) 28.8 G/DL RDW (test code = 1038) 18.8 % NEUTROPHILS (test code = 1008) 65.7 % LYMPHOCYTES (test code = 1010) 22.2 % MONOCYTES (test code = 1011) 9.5 % EOSINOPHILS (test code = 1012) 1.5 % BASOPHILS (test code = 1013) 1.1 % PLATELET COUNT (test code = 1015) 145 K/UL CBC W/AUTO [id number] 00:00:00 Test Item Value Reference Range Interpretation Comments WBC (test code = 1001) 4.7 K/UL RBC (test code = 1002) 4.91 M/UL HEMOGLOBIN (test code = 1003) 9.8 G/DL HEMATOCRIT (test code = 1004) 34.0 % MCV (test code = 1005) 69.2 fL MCH (test code = 1006) 20.0 PG MCHC (test code = 1007) 28.8 G/DL RDW (test code = 1038) 18.8 % NEUTROPHILS (test code = 1008) 65.7 % LYMPHOCYTES (test code = 1010) 22.2 % MONOCYTES (test code = 1011) 9.5 % EOSINOPHILS (test code = 1012) 1.5 % BASOPHILS (test code = 1013) 1.1 % PLATELET COUNT (test code = 1015) 145 K/UL LIPID [id number] 00:00:00 Test Item Value Reference Range Interpretation Comments CHOLESTEROL (test code = 2210) 145 MG/DL TRIGLYCERIDES (test code = 2232) 506 MG/DL HDL CHOLESTEROL (test code = 23 MG/DL 2220) CALC LDL CHOL (test code = 2237) NOTE MG/DL RISK RATIO LDL/HDL (test code = (NOTE) RATIO 2238) LIPID [id number] 00:00:00 Test Item Value Reference Range Interpretation Comments CHOLESTEROL (test code = 2210) 145 MG/DL TRIGLYCERIDES (test code = 2232) 506 MG/DL HDL CHOLESTEROL (test code = 23 MG/DL 2220) CALC LDL CHOL (test code = 2237) NOTE MG/DL RISK RATIO LDL/HDL (test code = (NOTE) RATIO 2238) HEMOGLOBIN [id number] 00:00:00 Test Item Value Reference Range Interpretation Comments HEMOGLOBIN A1c (test code = 13678) 10.6 % HEMOGLOBIN [id number] 00:00:00 Test Item Value Reference Range Interpretation Comments HEMOGLOBIN A1c (test code = 97448) 10.6 % HEMOGLOBIN [id number] 00:00:00 Test Item Value Reference Range Interpretation Comments HEMOGLOBIN A1c (test code = 33104) 10.6 % COMPREHENSIVE METABOLIC [id number] 00:00:00 Test Item Value Reference Range Interpretation Comments GLUCOSE (test code = 2217) 352 MG/DL BUN (test code = 2208) 9 MG/DL CREATININE (test code = 2214) 0.98 MG/DL eGFR AMER. (test code 109 ML/MIN/1.73 = 82132) eGFR NON- AMER. (test 94 ML/MIN/1.73 code = 05919) CALC BUN/CREAT (test code = 9 RATIO 2235) SODIUM (test code = 2231) 137 MEQ/L POTASSIUM (test code = 2228) 3.9 MEQ/L CHLORIDE (test code = 2215) 97 MEQ/L CARBON DIOXIDE (test code = 26 MEQ/L 220) CALCIUM (test code = 2209) 8.9 MG/DL PROTEIN, TOTAL (test code = 7.8 G/DL 2228) ALBUMIN (test code = 2201) 4.8 G/DL CALC GLOBULIN (test code = 3.0 G/DL 2240) CALC A/G RATIO (test code = 1.6 RATIO 2234) BILIRUBIN, TOTAL (test code = 0.3 MG/DL 2206) ALKALINE PHOSPHATASE (test 79 U/L code = 2204) AST (test code = 2218) 14 U/L ALT (test code = 2219) 11 U/L COMPREHENSIVE METABOLIC [id number] 00:00:00 Test Item Value Reference Range Interpretation Comments GLUCOSE (test code = 2217) 352 MG/DL BUN (test code = 2208) 9 MG/DL CREATININE (test code = 2214) 0.98 MG/DL eGFR AMER. (test code 109 ML/MIN/1.73 = 26805) eGFR NON- AMER. (test 94 ML/MIN/1.73 code = 14860) CALC BUN/CREAT (test code = 9 RATIO 2235) SODIUM (test code = 2231) 137 MEQ/L POTASSIUM (test code = 2228) 3.9 MEQ/L CHLORIDE (test code = 2215) 97 MEQ/L CARBON DIOXIDE (test code = 26 MEQ/L 2206) CALCIUM (test code = 2209) 8.9 MG/DL PROTEIN, TOTAL (test code = 7.8 G/DL 2228) ALBUMIN (test code = 2201) 4.8 G/DL CALC GLOBULIN (test code = 3.0 G/DL 2240) CALC A/G RATIO (test code = 1.6 RATIO 2233) BILIRUBIN, TOTAL (test code = 0.3 MG/DL 2206) ALKALINE PHOSPHATASE (test 79 U/L code = 2204) AST (test code = 2218) 14 U/L ALT (test code = 2219) 11 U/L
[2022-07-14] MEDS ORDERED: NA CHLORIDE 0.9% 2,000 ML ONE (22:33)
[2022-07-14 23:10] LABS: Absolute Lymphocytes (CBC) 0.6 K/uL (0.7-4.9); Lymphocytes % 4.8 % (15.3-44.8); MCV 93.1 fL (80-100); MPV 11.2 fL (7.6-11.3); RBC Red Blood Cell Count 5.26 M/uL (4.33-5.43)
[2022-07-14 23:13] LABS: Protime INR 1.08
[2022-07-14 23:33] LABS: Platelet Estimate DECR; Platelets, Giant OCC
[2022-07-14 23:34] LABS: Blood Morphology Comment NOT SEEN (NOT SEEN)
[2022-07-14 23:36] LABS: Albumin 2.7 g/dL (3.4-5.0); Potassium 3.3 mmol/L (3.5-5.1); Protein, Total 7.7 g/dL (6.4-8.2)
--- NOTE | 2022-07-15 00:40 | ER ---
Nurse's Notes [facility] Name: Yan Camargo Age: 47 yrs Sex: Male : 1975 Arrival Date: 07/14/2022 Time: 22:09 Bed 17 Private MD: Diagnosis: Subsequent non-ST elevation (NSTEMI) myocardial infarction;Hypotension, unspecified;Hypokalemia;Acute Kidney Injury;Rhabdomyolysis;Heart failure, unspecified;SARS-associated coronavirus as the cause of diseases classified elsewhere Presentation: 07/14 22:15 Chief complaint: EMS states: "We got a call out for a fall. His reports that he tw5 fell in the bedroom and seems really weak. He isn't reporting any pain or dizziness. History of HIV and diabetes. His blood sugar was 215. Coronavirus screen: Vaccine status: Patient reports being unvaccinated. Ebola Screen: Patient negative for fever greater than or equal to 101.5 degrees Fahrenheit, and additional compatible Ebola Virus Disease symptoms Patient denies exposure to infectious person. Patient denies travel to an Ebola-affected area in the 21 days before illness onset. 22:15 Method Of Arrival: EMS: [facility] tw5 22:15 Initial Sepsis Screen: Does the patient meet any 2 criteria? Systolic BP < 90 mmHg. tw5 Altered Mental Status. HR > 90 bpm. Does the patient have a suspected source of infection? No. Patient's initial sepsis screen is negative. If YES to both, name of provider notified: Tristian Guerrero DO Risk Assessment:. Onset of symptoms is unknown. 22:15 Acuity: MARTIR 2 tw5 07/15 02:40 Risk Assessment: Do you want to hurt yourself or someone else? Patient reports no kd3 desire to harm self or others. Triage Assessment: 07/14 22:15 General: Appears ill, Behavior is calm, drowsy, lethargic. Pain: Denies pain. Neuro: tw5 Level of Consciousness is lethargic, slow to respond. Oriented to person, place. Respiratory: Airway is patent Trachea midline Respiratory pattern is tachypnea. Historical: - Home Meds: 22:52 aspirin 81 mg Oral cap 1 cap once daily [Active]; Descovy 200-25 mg Oral tab 1 tab once tw5 daily [Active]; ferrous sulfate 325 mg (65 mg iron) Oral cpER [Active]; gabapentin 600 mg Oral Tb24 [Active]; glimepiride 1 mg Oral tab 2 tabs once daily [Active]; Januvia 100 mg Oral tab 1 tab once daily [Active]; Jardiance 25 mg Oral tab [Active]; Lasix 40 mg Oral tab once daily [Active]; metformin 1,000 mg Oral tab 1 tab 2 times per day [Active]; metoprolol tartrate 50 mg Oral tab [Active]; potassium chloride 10 mEq Oral cpER 1 cap once daily [Active]; rosuvastatin 40 mg Oral tab 1 tab once daily [Active]; spironolactone 25 mg Oral tab [Active]; Tivicay 50 mg Oral tab [Active]; - PMHx: 22:52 CHF; Diabetes - IDDM; HIV; Hypertensive disorder; tw5 - PSHx: 22:52 Coronary artery bypass graft; tw5 - Immunization history:: Flu vaccine is not up to date. - Social history:: Smoking status: Patient reports the use of cigarette tobacco products. Screenin/02 02:39 Abuse screen: Denies threats or abuse. Denies injuries from another. Nutritional kd3 screening: No deficits noted. Tuberculosis screening: No symptoms or risk factors identified. Fall Risk Fall in past 12 months (25 points). IV access (20 points). 02:39 Fall Risk Mental Status- Overestimates/Forgets Limitations (15 pts.). kd3 Assessment: 07/14 22:55 Derm: Skin is dusky. tw5 Vital Signs: 22:15 BP 67 / 41; Pulse 120; Resp 25; Temp 98.5; Pulse Ox 92% on 2 lpm NC; Weight 95.25 kg; tw5 Height 5 ft. 6 in. (167.64 cm); Pain 0/10; 23:01 BP 89 / 72; Pulse 112; Resp 25; Pulse Ox 94% on 4 lpm NC; tw5 12 00:09 BP 97 / 73; Pulse 104; Resp 21; Pulse Ox 96% on 2 lpm NC; kd3 03:48 BP 95 / 64; Pulse 96; Resp 20; Pulse Ox 96% on 4 lpm NC; kd3 07/14 22:15 Body Mass Index 33.89 (95.25 kg, 167.64 cm) tw5 07/14 22:15 Provider notifed tw5 ED Course: 22:09 Patient arrived in ED. wm 22:15 Arm band placed on right wrist. tw5 22:17 Tristian Guerrero DO is Attending Physician. ms3 22:20 First set of blood cultures drawn by physician. tw5 22:52 Triage completed. tw5 22:56 Inserted saline lock: 22 gauge in left forearm, using aseptic technique. Blood tw5 collected. 22:57 Initial lab(s) drawn, by me, sent to lab. Second set of blood cultures drawn by me. tw5 22:57 Inserted saline lock: 18 gauge in right EJ, using aseptic technique. Blood collected. tw5 Placed [address] Dr[address] Guerrero. 23:00 CK Sent. tw5 23:00 BNP Sent. tw5 23:00 Troponin High Sensitivity Sent. tw5 23:01 Blood Culture Adult (2) Sent. tw5 23:01 CBC with Diff Sent. tw5 23:01 CMP Sent. tw5 23:01 Protime (+inr) Sent. tw5 23:01 Ptt, Activated Sent. tw5 23:39 Notified ED physician of a critical lab result(s). lac 2.2 ckp 3798 tropon 938. tw5 23:41 Chest Single View XRAY In Process Unspecified. EDMS 23:41 CT Head C Spine In Process Unspecified. EDMS 07/15 00:07 Faviola Humphrey, RN is Primary Nurse. kd3 00:37 Tucker Dixon is Hospitalizing Provider. ms3 02:39 Patient has correct armband on for positive identification. kd3 02:39 Client placed on continuous cardiac and pulse oximetry monitoring. NIBP monitoring kd3 applied. Warm blanket given. 02:39 No provider procedures requiring assistance completed. kd3 03:43 COVID-19/FLU A+B Sent. kd3 03:44 Notified the Hospitalist of a critical lab result(s), pt covid positive. kl 03:48 Patient admitted, IV remains in place. kd3 Administered Medications: 07/14 23:00 Drug: NS 0.9% (30 ml/kg) 30 ml/kg Route: IV; Rate: bolus; Site: right jugular; tw5 07/15 03:49 Follow up: IV Status: Completed infusion kd3 02:19 Drug: Aspirin Chewable Tablet 324 mg Route: PO; kd3 03:48 Follow up: Response: No adverse reaction kd3 02:28 Drug: Heparin (WI Drip) 12 units/kg/hr - (HEParin 85248 units, D5W 500 ml) joel {Co-Signature: kim (Faviola Humphrey RN).} Route: IV; Rate: calculated rate; Site: left antecubital; 07:00 Follow up: IV Status: Completed infusion; Order to discontinue infusion; Block Handler gela stopped heparin drip 02:29 Drug: Heparin (WI-Bolus No thrombolytic) - HEParin 60 units/kg {Co-Signature: kim (Faviola Humphrey RN).} Route: IVP; Site: left antecubital; 03:48 Follow up: Response: No adverse reaction kd3 Medication: 02:40 VIS not applicable for this client. kd3 Outcome: 00:39 Decision to Hospitalize by Provider. ms3 03:47 Admitted to ER Hold. Please see [facility] for further documentation. kd3 03:47 Condition: stable 03:47 Discharge instructions given to patient, Instructed on the need for admit, Demonstrated understanding of instructions. 1205 23:50 Patient left the ED. mw2 Signatures: Dispatcher [employer] EDMS Milka Mckeon RN Sonia Rojas RN Kristopher Porter mw2 Tristian Guerrero DO DO ms3 Roya Hernandez Tiffany tw5 Faviola Humphrey RN RN kd3 Faviola Humphrey RN kd3
--- NOTE | 2022-07-15 00:40 | EDPHYS ---
Physician Documentation [facility] Name: Yan Camargo Age: 47 yrs Sex: Male : 1975 Arrival Date: 07/14/2022 Time: 22:09 Bed 17 Private MD: ED Physician Tristian Guerrero HPI: 07/14 23:00 This 47 yrs old Male presents to ER via EMS with complaints of altered mental status. ms3 23:00 The patient presents with slow to respond. Onset: The symptoms/episode began/occurred ms3 today. Possible causes: unknown. Associated signs and symptoms: The patient has no apparent associated signs or symptoms. Current symptoms: In the emergency department the patient's symptoms are unchanged from the initial presentation. Patient's baseline: Neuro: alert and fully oriented, Motor: no deficits, Ambulation: walks without assistance, Speech: normal. 47-year-old male with past medical history of congestive heart failure, diabetes, HIV, hypertensive disorder presents via [facility] for hypotension, altered mental status, fall. EMS states patient's found patient on floor 1 hour prior to arrival. EMS noted patient to be febrile, tachycardic, hypotensive. EMS attempted IV, but were unsuccessful. Patient denies pain in the emergency department.. Historical: - Home Meds: 22:52 aspirin 81 mg Oral cap 1 cap once daily [Active]; Descovy 200-25 mg Oral tab 1 tab once tw5 daily [Active]; ferrous sulfate 325 mg (65 mg iron) Oral cpER [Active]; gabapentin 600 mg Oral Tb24 [Active]; glimepiride 1 mg Oral tab 2 tabs once daily [Active]; Januvia 100 mg Oral tab 1 tab once daily [Active]; Jardiance 25 mg Oral tab [Active]; Lasix 40 mg Oral tab once daily [Active]; metformin 1,000 mg Oral tab 1 tab 2 times per day [Active]; metoprolol tartrate 50 mg Oral tab [Active]; potassium chloride 10 mEq Oral cpER 1 cap once daily [Active]; rosuvastatin 40 mg Oral tab 1 tab once daily [Active]; spironolactone 25 mg Oral tab [Active]; Tivicay 50 mg Oral tab [Active]; - PMHx: 22:52 CHF; Diabetes - IDDM; HIV; Hypertensive disorder; tw5 - PSHx: 22:52 Coronary artery bypass graft; tw5 - Immunization history:: Flu vaccine is not up to date. - Social history:: Smoking status: Patient reports the use of cigarette tobacco products. ROS: 23:00 ENT: Negative for injury, pain, and discharge, Neck: Negative for injury, pain, and ms3 swelling, Cardiovascular: Negative for chest pain, and palpitations. Respiratory: Negative for shortness of breath, cough, wheezing, and pleuritic chest pain, Abdomen/GI: Negative for abdominal pain, nausea, vomiting, diarrhea, and constipation, MS/Extremity: Negative for injury and deformity, Skin: Negative for injury, rash, and discoloration. 23:00 Constitutional: Positive for fever, malaise. 23:00 Neuro: Negative for headache. 23:00 All other systems are negative. Exam: 23:00 Constitutional: This is a well developed, well nourished patient who is awake, alert, ms3 and in no acute distress. Head/Face: Normocephalic, atraumatic. Neck: Trachea midline, no cervical lymphadenopathy. Supple, full range of motion without nuchal rigidity, or vertebral point tenderness. No Meningismus. Chest/axilla: Normal chest wall appearance and motion. Nontender with no deformity. Cardiovascular: Tachycardia, Regular rhythm with a normal S1 and S2. No gallops, murmurs, or rubs. Normal PMI, no JVD. No pulse deficits. Respiratory: Lungs have equal breath sounds bilaterally, clear to auscultation and percussion. No rales, rhonchi or wheezes noted. No increased work of breathing, no retractions or nasal flaring. Abdomen/GI: Soft, non-tender, with normal bowel sounds. No distension or tympany. No guarding or rebound. No evidence of tenderness throughout. Back: No spinal tenderness. No costovertebral tenderness. Full range of motion. Skin: Warm, dry with normal turgor. Normal color with no rashes, no lesions, and no evidence of cellulitis. MS/ Extremity: Pulses equal, no cyanosis. Neurovascular intact. Full, normal range of motion. 23:00 Neuro: Orientation: to person, place, time \T\ situation. Mentation: slow to respond, Memory: is normal, Cranial nerves: CN II- XII are normal as tested, Motor: moves all fours, Sensation: no obvious gross deficits, Gait: not tested. 07/15 02:14 ECG was reviewed by the Attending Physician. ms3 Vital Signs: 07/14 22:15 BP 67 / 41; Pulse 120; Resp 25; Temp 98.5; Pulse Ox 92% on 2 lpm NC; Weight 95.25 kg; tw5 Height 5 ft. 6 in. (167.64 cm); Pain 0/10; 23:01 BP 89 / 72; Pulse 112; Resp 25; Pulse Ox 94% on 4 lpm NC; tw5 07/15 00:09 BP 97 / 73; Pulse 104; Resp 21; Pulse Ox 96% on 2 lpm NC; kd3 03:48 BP 95 / 64; Pulse 96; Resp 20; Pulse Ox 96% on 4 lpm NC; kd3 07/14 22:15 Body Mass Index 33.89 (95.25 kg, 167.64 cm) tw5 07/14 22:15 Provider notifed tw5 MDM: 22:33 Patient medically screened. ms3 07/15 00:40 Differential Diagnosis: electrolyte abnormality, hypoglycemia, intracranial bleed, ms3 pneumonia, volume depletion. Data reviewed: vital signs, nurses notes, lab test result(s), EKG, radiologic studies, and as a result, I will admit patient. Data interpreted: secured entrance monitor: rate is 112 beats/min, rhythm is regular, sinus tachycardia, with no ectopy, Interpretation: normal rhythm, tachycardia. Counseling: I had a detailed discussion with the patient and/or guardian regarding: the historical points, exam findings, and any diagnostic results supporting the discharge/admit diagnosis, lab results, radiology results, the need for further work-up and treatment in the hospital. ED course: Dicussed labs and imaging with patient. Patient agrees with admission. Discussed case with LIDYA Robb, and she accepts patient on behalf of Dr Dixon.. 03:47 ED course: Patient meets septic shock criteria at this time due to virus- COVID 19. A. ms3 COVID 19 B. HR>90, RR >20. C. LA >2. Shock criteria 2 SBP less than 90. Antibiotics not given secondary to viral cause of septic shock. 30 m/kg fluids ordered on arrival. Blood cultures obtained on arrival. Sepsis re-evaluation completed s/p fluid administration with improvement of patient's blood pressure.. 07/14 22:29 Order name: Blood Culture Adult (2) ms3 07/14 22:29 Order name: CBC with Diff; Complete Time: 00:19 ms3 07/14 22:29 Order name: CMP; Complete Time: 00:19 ms3 07/14 22:29 Order name: Lactate w/ 2H reflex if indic.; Complete Time: 00:19 ms3 07/14 22:29 Order name: Protime (+inr); Complete Time: 23:31 ms3 07/14 22:29 Order name: Ptt, Activated; Complete Time: 23:31 ms3 07/14 22:29 Order name: Urine Culture ms3 07/14 22:29 Order name: Urine Microscopic Only ms3 07/14 22:30 Order name: Troponin High Sensitivity; Complete Time: 00:19 ms3 07/14 22:30 Order name: BNP; Complete Time: 00:19 ms3 07/14 22:30 Order name: CK; Complete Time: 00:19 ms3 07/14 23:17 Order name: Manual Differential; Complete Time: 00:19 EDMS 07/15 00:19 Order name: COVID-19/FLU A+B; Complete Time: 03:45 ms3 07/15 05:25 Order name: Lactate Sepsis 2 HR Follow-up; Complete Time: 09:04 EDMS 07/15 06:48 Order name: PTT, Activated Partial Thromb; Complete Time: 09:04 EDMS 07/15 06:59 Order name: Glucose, Ancillary Testing; Complete Time: 09:04 EDMS 07/15 08:18 Order name: Glucose, Ancillary Testing; Complete Time: 09:04 EDMS 07/15 08:30 Order name: CBC with Automated Diff; Complete Time: 09:04 EDMS 07/15 08:33 Order name: Hemoglobin A1c; Complete Time: 09:04 EDMS 07/15 09:04 Order name: Comprehensive Metabolic Panel; Complete Time: 20:58 EDMS 07/15 09:04 Order name: Renal Panel; Complete Time: 20:58 EDMS 07/15 09:04 Order name: Creatine Phosphokinase; Complete Time: 20:58 EDMS 07/15 09:04 Order name: CKMB Creatine Kinase MB; Complete Time: 20:58 EDMS 07/15 09:04 Order name: Troponin High Sensitivity; Complete Time: 20:58 EDMS 07/15 09:04 Order name: Lipid Profile; Complete Time: 20:58 EDMS 07/15 09:04 Order name: Magnesium; Complete Time: 20:58 EDMS 07/15 09:04 Order name: Thyroid Stimulating Hormone; Complete Time: 20:58 EDMS 07/15 11:29 Order name: Glucose, Ancillary Testing; Complete Time: 20:58 EDMS 07/15 12:29 Order name: Urinalysis W/Microscopic; Complete Time: 20:58 EDMS 07/15 12:32 Order name: Uric Acid; Complete Time: 20:58 EDMS 07/15 13:19 Order name: Urine Microalbumin/Creatinine; Complete Time: 20:58 EDMS 07/15 17:49 Order name: Glucose, Ancillary Testing; Complete Time: 20:58 EDMS 07/15 18:52 Order name: Glucose, Ancillary Testing; Complete Time: 20:58 EDMS 07/16 00:35 Order name: Glucose, Ancillary Testing EDMS 07/16 02:14 Order name: Glucose, Ancillary Testing EDMS 07/16 03:39 Order name: CBC with Automated Diff EDMS 07/16 07:08 Order name: Comprehensive Metabolic Panel EDMS 07/16 07:08 Order name: Creatine Phosphokinase EDMS 07/16 07:08 Order name: Magnesium EDMS 07/16 07:08 Order name: Glucose, Ancillary Testing EDMS 07/16 09:52 Order name: Glucose, Ancillary Testing EDMS 07/16 13:41 Order name: Glucose, Ancillary Testing EDMS 07/16 18:51 Order name: Glucose, Ancillary Testing EDMS 07/16 20:52 Order name: Vancomycin Level Trough EDMS 07/16 22:16 Order name: Glucose, Ancillary Testing EDMS 07/17 01:56 Order name: Glucose, Ancillary Testing EDMS 07/17 02:00 Order name: ABG Arterial Blood Gas EDMS 07/17 03:37 Order name: CBC with Automated Diff EDMS 07/17 03:49 Order name: Comprehensive Metabolic Panel EDMS 07/17 03:49 Order name: Creatine Phosphokinase EDMS 07/17 03:49 Order name: Magnesium EDMS 07/17 05:27 Order name: Glucose, Ancillary Testing EDMS 07/17 10:46 Order name: Glucose, Ancillary Testing EDMS 07/17 17:21 Order name: Glucose, Ancillary Testing EDMS 07/18 01:12 Order name: Glucose, Ancillary Testing EDMS 07/18 05:05 Order name: CBC with Automated Diff EDMS 07/18 05:29 Order name: Comprehensive Metabolic Panel EDMS 07/18 05:29 Order name: C-Reactive Protein EDMS 07/18 05:31 Order name: Glucose, Ancillary Testing EDMS 07/18 05:33 Order name: Manual Differential EDMS 07/18 05:33 Order name: Sedimentation Rate, [place] EDMS 07/18 07:44 Order name: Glucose, Ancillary Testing EDMS 07/14 22:29 Order name: Chest Single View XRAY; Complete Time: 20:58 ms3 07/14 22:29 Order name: EKG; Complete Time: 22:30 ms3 07/14 22:29 Order name: Accucheck; Complete Time: 00:09 ms3 07/14 22:29 Order name: Cardiac monitoring; Complete Time: 23:00 ms3 07/14 22:29 Order name: EKG - Nurse/Tech; Complete Time: 23:00 ms3 07/14 22:29 Order name: IV Saline Lock - Large Bore; Complete Time: 23:00 ms3 07/14 22:29 Order name: Labs collected and sent; Complete Time: 23:00 ms3 07/14 22:29 Order name: O2 Per Protocol; Complete Time: 23:01 ms3 07/14 22:29 Order name: O2 Sat Monitoring; Complete Time: 23:01 ms3 07/14 22:29 Order name: Vital Signs; Complete Time: 23:01 ms3 07/14 22:40 Order name: CT Head C Spine; Complete Time: 20:58 ms3 07/15 08:05 Order name: Diet Heart Healthy; Complete Time: 08:06 ph 07/17 00:55 Order name: XRAY Chest (1 view) mw2 07/18 11:46 Order name: CT EDMS 07/18 11:49 Order name: CT EDMS 07/18 11:56 Order name: RAD EDMS 07/18 13:11 Order name: Glucose, Ancillary Testing EDMS 07/18 21:00 Order name: Glucose, Ancillary Testing EDMS EC:14 Rate is 106 beats/min. Rhythm is regular. QRS [place] is Normal. [place] interval is normal. ms3 Clinical impression: Sinus tachycardia. Interpreted by me. Reviewed by me. Administered Medications: 07/14 23:00 Drug: NS 0.9% (30 ml/kg) 30 ml/kg Route: IV; Rate: bolus; Site: right jugular; tw5 07/15 03:49 Follow up: IV Status: Completed infusion kd3 02:19 Drug: Aspirin Chewable Tablet 324 mg Route: PO; kd3 03:48 Follow up: Response: No adverse reaction kd3 02:28 Drug: Heparin (MO Drip) 12 units/kg/hr - (HEParin 00493 units, D5W 500 ml) kl {Co-Signature: [email or web address] (Faviola Humphrey RN).} Route: IV; Rate: calculated rate; Site: left antecubital; 07:00 Follow up: IV Status: Completed infusion; Order to discontinue infusion; Record Changer Assembler jl7 stopped heparin drip 02:29 Drug: Heparin (MO-Bolus No thrombolytic) - HEParin 60 units/kg {Co-Signature: kim (Faviola Humphrey RN).} Route: IVP; Site: left antecubital; 03:48 Follow up: Response: No adverse reaction kd3 Disposition: 00:40 Critical Care:. ms3 Disposition Summary: 07/15/22 00:39 Hospitalization Ordered Hospitalization Status: Inpatient Admission ms3 Provider: Tucker Dixon ms3 Condition: Stable ms3 Problem: new ms3 Symptoms: are unchanged ms3 Bed/Room Type: Standard ms3 Location: Intensive Care Unit(07/18/22 20:02) Room Assignment: 8-(07/18/22 22:01) Diagnosis - Subsequent non-ST elevation (NSTEMI) myocardial infarction ms3 - Hypotension, unspecified ms3 - Hypokalemia ms3 - Acute Kidney Injury ms3 - Rhabdomyolysis ms3 - Heart failure, unspecified ms3 - SARS-associated coronavirus as the cause of diseases classified elsewhere ms3 Forms: - Medication Reconciliation Form ms3 - SBAR form ms3 Critical care time excluding procedures: 00:40 Critical care time: Bedside Care: 45 minutes, Consultation: 10 minutes. Total time: 55 ms3 minutes Signatures: Dispatcher [employer] Milka Leblanc RN RN kl Webb, Martha, RN RN mw Nieto, Roman, MD MD rn Sims, Tristian, DO DO ms3 Maddi Chambers tw5 Faviola Humphrey RN RN kd3 Dorothy Michaels, LEROY PAMateo [email or web address] Sonia Sherman RN jl7 Faviola Humphrey RN kd3 Corrections: (The following items were deleted from the chart) 07/14 23:05 23:00 Constitutional: This is a well developed, well nourished patient who is awake, ms3 alert, and in no acute distress. Head/Face: Normocephalic, atraumatic. Neck: Trachea midline, no cervical lymphadenopathy. Supple, full range of motion without nuchal rigidity, or vertebral point tenderness. No Meningismus. Chest/axilla: Normal chest wall appearance and motion. Nontender with no deformity. Cardiovascular: Regular rate and rhythm with a normal S1 and S2. No gallops, murmurs, or rubs. Normal PMI, no JVD. No pulse deficits. Respiratory: Lungs have equal breath sounds bilaterally, clear to auscultation and percussion. No rales, rhonchi or wheezes noted. No increased work of breathing, no retractions or nasal flaring. Abdomen/GI: Soft, non-tender, with normal bowel sounds. No distension or tympany. No guarding or rebound. No evidence of tenderness throughout. Back: No spinal tenderness. No costovertebral tenderness. Full range of motion. Skin: Warm, dry with normal turgor. Normal color with no rashes, no lesions, and no evidence of cellulitis. MS/ Extremity: Pulses equal, no cyanosis. Neurovascular intact. Full, normal range of motion. ms3 07/15 01:34 00:39 Telemetry/MedSurg (Inpatient) ms3 tw5 :34 00:39 ms3 tw5 07/18 20:02 07/15 01:34 [facility] ER HOLD tw5 07/18 20:02 07/15 01:34 ERHOLD- tw5 07/18 22:01 20:02 mw mw
--- NOTE | 2022-07-15 01:24 | P.HP ---
Certification for Inpatient Patient admitted to: Inpatient With expected LOS: >2 Midnights Patient will require the following post-hospital care: None Practitioner: I am a practitioner with admitting privileges, knowledge of patient current condition, hospital course, and medical plan of care. Services: Services provided to patient in accordance with Admission requirements found in Title 42 Section 412.3 of the Code of Federal Regulations Patient History Date of Service: 07/15/22 Reason for admission: NSTEMI/Rhabdomyolysis History of Present Illness: Patient is a 47 year old male with history of CAD s/p CABG, hypertension, HIV, insulin dependent type 2 diabetes, and chronic diastolic CHF who presented to the ED via EMS after being found down. He was noted to be hypotensive, tachycardic, and febrile. 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 Initial vital signs upon arrival to ED- BP 67/41, HR 120, RR 25, 92% on 2L. Sepsis fluids bolus was immediately initiated and his blood pressure responded appropriately. His labs are significant for WBC 11.6, plt 88, sodium 131, potassium 3.3, chloride 97, BUN 62, Cr 3.29, lactate 2.2, AST 95, CK 3798, trop HS 938, BNP 8702, albumin 2.7. Chest xray showed "Mildly prominent interstitial markings. No consolidation." CT head/cspine negative for acute findings. BP has now improved to 97/73. Patient is still lethargic but answering questions appropriately. He was given 324 mg aspirin and started on heparin drip. Patient is admitted for further management. Allergies No Known Allergies Allergy (Verified 09/22/19 02:55) Home medications list reviewed: Yes Home Medications: Albuterol Sulfate [Proair Hfa] 2 puff IH BID PRN 09/22/19 Aspirin [Aspir-Low] 81 mg PO DAILY 09/22/19 Cyclobenzaprine [Flexeril*] 10 mg PO TID PRN 09/22/19 Dolutegravir Sodium [Tivicay] 50 mg PO DAILY 09/22/19 Empagliflozin [Jardiance] 25 mg PO DAILY 09/22/19 Emtricitabine/Tenofov Alafenam [Descovy 200-25 mg Tablet] 1 tab PO DAILY 09/22/19 Ferrous Sulfate [Ferrous Sulfate*] 325 mg PO DAILY 09/22/19 Fluticasone Propionate [Flovent Diskus] 1 inh IH BID PRN 09/22/19 Furosemide [Lasix*] 40 mg PO DAILY 09/22/19 Glimepiride 1 mg PO BID 09/22/19 Insulin Detemir [Levemir Flextouch] 20 units SQ BID 09/22/19 Loratadine [Claritin*] 10 mg PO DAILY 09/22/19 Metformin HCl 1,000 mg PO BID 09/22/19 Nitroglycerin 0.4 mg SL SEECOM PRN 09/22/19 Potassium Chloride 10 meq PO DAILY 09/22/19 Promethazine HCl 25 mg PO Q6H PRN 09/22/19 Ranitidine [Zantac*] 150 mg PO DAILY PRN 09/22/19 Rosuvastatin Calcium 40 mg PO BEDTIME 09/22/19 Sitagliptin Phosphate [Januvia*] 100 mg PO DAILY 09/22/19 Tramadol HCl [Ultram] 100 mg PO TID PRN 09/22/19 Smz./Tmp. [Bactrim Ds 800 MG/160 MG*] 1 each PO BID #20 tab 09/23/19 levoFLOXacin [Levaquin*] 750 mg PO DAILY #10 tab 09/23/19 Pantoprazole [Protonix Tab] 40 mg PO BID #60 tab 05/18/22 - Past Medical/Surgical History Diabetic: Yes -: Chronic Diastolic CHF -: Insulin Dependent DM2 -: HIV -: CAD s/p CABG -: HTN -: CABG Psychosocial/ Personal History: Patient lives at home with his family. - Family History Father -: Diabetes, Stroke, Seizures Brother -: Heart disease, Hypertension Mother -: Heart disease Sister -: Diabetes - Social History Smoking Status: Never smoker Alcohol use: Yes CD- Drugs: No Caffeine use: Yes Place of Residence: Home Review of Systems Unremarkable Physical Examination - Vital Signs Temperature: 98.5 F Blood Pressure: 97/73 Pulse: 104 Respirations: 21 Pulse Ox (%): 94 (2L NC) - Physical Exam General: In no apparent distress, Oriented x3, Other (Lethargic) HEENT: Atraumatic, PERRLA, EOMI, Sclerae nonicteric Neck: Supple, No LAD Respiratory: Clear to auscultation bilaterally, Normal air movement Cardiovascular: No edema, Regular rate/rhythm, Normal S1 S2 Gastrointestinal: Normal bowel sounds, No tenderness Musculoskeletal: No tenderness Integumentary: No rashes Neurological: Normal speech, Normal strength at 5/5 x4 extr, Normal tone, Normal affect - Studies Laboratory Data (last 24 hrs) 07/14/22 22:35: PT 11.9, INR 1.08, APTT 30.9 07/14/22 22:35: Sodium 131 L, Potassium 3.3 L, BUN 62 H, Creatinine 3.29 H, Glucose 236 H, Total Bilirubin 1.0, AST 95 H, ALT 52, Alkaline Phosphatase 17 L 07/14/22 22:35: WBC 11.60 H, Hgb 16.7, Hct 49.0, Plt Count 88 L Assessment and Plan - Problems (Diagnosis) (1) NSTEMI (non-ST elevated myocardial infarction) Current Visit: Yes Status: Acute (2) Rhabdomyolysis Current Visit: Yes Status: Acute Qualifiers: Rhabdomyolysis type: non-traumatic Qualified Code(s): M62.82 - Rhabdomyolysis (3) SOBIA (acute kidney injury) Current Visit: Yes Status: Acute (4) CAD (coronary artery disease) Current Visit: Yes Status: Chronic Qualifiers: Coronary Disease-Associated Artery/Lesion type: bypass graft [place] vs. transplanted heart: [place] heart Associated angina: without angina Qualified Code(s): I25.810 - Atherosclerosis of coronary artery bypass graft(s) without angina pectoris (5) CHF (congestive heart failure) Current Visit: Yes Status: Chronic Qualifiers: Heart failure type: diastolic Heart failure chronicity: acute on chronic Qualified Code(s): I50.33 - Acute on chronic diastolic (congestive) heart failure (6) DM type 2 (diabetes mellitus, type 2) Current Visit: Yes Status: Chronic Qualifiers: Diabetes mellitus retirement insulin use: with retirement use Diabetes mellitus complication status: with hyperglycemia Qualified Code(s): E11.65 - Type 2 diabetes mellitus with hyperglycemia; Z79.4 - half-way (current) use of insulin (7) Hyperlipidemia Current Visit: Yes Status: Chronic Qualifiers: Hyperlipidemia type: unspecified Qualified Code(s): E78.5 - Hyperlipidemia, unspecified - Plan NSTEMI with underlying CAD s/p CABG: Initial troponin 938. It has not been elevated on prior visits per chart review. Trend serial cardiac enzymes. Patient reports he had some chest pain earlier in the day. He denies current chest pain. EKG without ST changes. Heparin drip initiated in ED. Also given 324 mg aspirin. NPO in case of cardiac intervention. Cardiology consulted. Echo ordered. Monitor on telemetry. Rhabdomyolysis with SOBIA: CPK 3798. Patient was found down by . He does not remember what happened. CT head/cspine negative. Cr elevated at 3.29 (per chart review, baseline is ~1). Nephrology consulted. IV hydration. Daily CPK. Renal panel ordered. Acute on Chronic Diastolic CHF: Chest xray showed "Mildly prominent interstitial markings. No consolidation." BNP is elevated at 8700 (baseline is ~300). Albumin 2.7. Will continue gentle IV hydration and monitor for signs of fluid overload. No pitting edema or shortness of breath noted. Echo ordered and cardiology consulted. No echo on file here. Insulin Dependent Type 2 Diabetes: glucose monitoring and control with insulin sliding scale. A1c and lipid panel ordered. Monitor and replete electrolytes per protocol Reconcile and continue home medications when appropriate. HOLD antihypertensives for now Heparin for VTE prophylaxis Full code Discharge Plan: Home Plan to discharge in: Greater than 2 days - Advance Directives Does patient have a Living Will: No Does patient have a Durable POA for Healthcare: No - Code Status/Comfort Care Code Status Assessed: Yes Code Status: Full Code Critical Care: No Time Spent Managing Pts Care (In Minutes): 50
[2022-07-15] MEDS ORDERED: NA CHLORIDE 0.9% 1,000 ML ONE ×3 (01:49→16:50)
[2022-07-15] MEDS ORDERED: HEPARIN/D5W 25,000 UNIT/500 ML BAG IV ONE (02:04)
[2022-07-15] MEDS ORDERED: HEPARIN 5000 UNIT/ML 1 ML VIAL ONE (02:04)
[2022-07-15] MEDS ORDERED: ASPIRIN 81 MG CHEWABLE TABLET ONE (02:18)
[2022-07-15 03:44] LABS: SARS-COV-2 RT PCR POSITIVE (NEGATIVE)
[2022-07-15] MEDS ORDERED: NA CHLORIDE 0.9% 1,000 ML IV SCH (03:45)
[2022-07-15] MEDS ORDERED: HEPARIN/D5W 25,000 UNIT/500 ML BAG IV SCH (03:45)
--- NOTE | 2022-07-15 05:46 | P.INFCA ---
Sepsis Focused Assessment - Focused Assessment Complete? Sepsis Focused Assessment Completed?: Yes - Sepsis Screen Result Severe Sepsis: Negative Septic Shock: Negative - Evaluation Current stage of sepsis: Resolved - Vital Signs Reviewed: Yes Temperature: 98.2 F Heart rate: 96 Blood Pressure: 114/74 Respiratory Rate: 25 O2 Sat by Pulse Oximetry: 97
[2022-07-15] MEDS: INSULIN -REGULAR HUMAN 50 UNIT/0.5 ML ML SQ SCH ×3 (06:00→18:00)
--- NOTE | 2022-07-15 07:49 | EKG ---
Test Date: 2022-07-14 Test Time: 23:51:45 Meat Counter Worker: MEASUREMENT RESULTS: Intervals: Rate: 106 AR: 136 QRSD: 94 QT: 358 QTc: 475 [place]: P: 63 AR: 136 QRS: 60 T: 54 INTERPRETIVE STATEMENTS: Sinus tachycardia Possible Left atrial enlargement Anterolateral infarct, age undetermined Abnormal ECG Compared to ECG 07/14/2022 23:51:09 No significant changes Electronically Signed On 07-15-22 07:48:45 AUTOMOTIVE ENGINEER by Jace Bowles
--- NOTE | 2022-07-15 07:49 | EKG ---
Test Date: 2022-07-14 Test Time: 23:51:09 Seam Press Operator: MEASUREMENT RESULTS: Intervals: Rate: 123 UT: 140 QRSD: 88 QT: 382 QTc: 546 [place]: P: 68 UT: 140 QRS: 75 T: 10 INTERPRETIVE STATEMENTS: Undetermined rhythm Anterolateral infarct, age undetermined Abnormal ECG Compared to ECG 05/18/2022 01:34:28 Sinus rhythm no longer present Ventricular premature complex(es) no longer present Myocardial infarct finding still present Electronically Signed On 07-15-22 07:48:46 ENGLISH LANGUAGE ARTS TEACHER by Jace Bowles
[2022-07-15] MEDS ORDERED: INFLUENZA VACCINE (for 6+ mo) 0.5 ML DOSE IMVAC ONE (08:00)
[2022-07-15] MEDS ORDERED: ACETAMINOPHEN 325 MG TABLET ONE ×5 (08:20→21:10)
[2022-07-15] MEDS ORDERED: ASCORBIC ACID 500 MG TABLET ONE (08:20)
[2022-07-15] MEDS ORDERED: ASPIRIN EC 81 MG TAB PO ONE (08:21)
[2022-07-15] MEDS ORDERED: ZINC SULFATE 220 MG CAP ONE (08:21)
[2022-07-15] MEDS: ZINC SULFATE 220 MG CAP PO SCH (08:26)
[2022-07-15] MEDS: ASCORBIC ACID 500 MG TABLET PO SCH (08:26)
[2022-07-15] MEDS: ASPIRIN EC 81 MG TAB PO SCH (08:26)
[2022-07-15 08:28] LABS: Absolute Lymphocytes (CBC) 0.3 K/uL (0.7-4.9); Hematocrit 42.5 % (39.6-49.0); Lymphocytes % 3.9 % (15.3-44.8); MCV 94.1 fL (80-100); MPV 9.5 fL (7.6-11.3); RBC Red Blood Cell Count 4.51 M/uL (4.33-5.43)
[2022-07-15] MEDS: ACETAMINOPHEN 325 MG TABLET PO PRN ×3 (08:30→21:50)
[2022-07-15 08:57] LABS: Albumin 2.2 g/dL (3.4-5.0); Bilirubin Total 0.9 mg/dL (0.2-1.0); Magnesium 2.8 mg/dL (1.8-2.4); Phosphorus 5.1 mg/dL (2.5-4.9); Potassium 3.3 mmol/L (3.5-5.1); Protein, Total 6.6 g/dL (6.4-8.2); Thyroid Stimulating Hormone 0.661 uIU/mL (0.360-3.740)
[2022-07-15] MEDS: METOPROLOL TAR 25 MG TAB PO SCH ×2 (09:00→21:50)
[2022-07-15] MEDS ORDERED: VANCOMYCIN 1.25 GM in NA CHLORIDE 0.9% 250 ML IVPB SCH (09:00)
[2022-07-15] MEDS ORDERED: VANCOMYCIN 2 GM in NA CHLORIDE 0.9% 500 ML IVPB ONE (09:00)
[2022-07-15] MEDS ORDERED: METOPROLOL TAR 50 MG TAB PO SCH (09:00)
[2022-07-15] MEDS ORDERED: CEFEPIME 1 GM in NA CHLORIDE 0.9% 100 ML IV SCH (09:00)
[2022-07-15 09:04] LABS: Troponin High Sensitivity 594.7 pg/mL (<58.9)
[2022-07-15] MEDS ORDERED: METOPROLOL TAR 25 MG TAB ONE ×3 (10:05→21:12)
[2022-07-15] MEDS ORDERED: IBUPROFEN 400 MG TAB ONE (10:08)
[2022-07-15] MEDS ORDERED: LIDOCAINE VISCOUS 2% SOLN 15 ML UDC ONE (10:28)
[2022-07-15] MEDS: ONDANSETRON 4 MG/2 ML VIAL IV PRN (10:30)
[2022-07-15] MEDS ORDERED: NA CHLORIDE 0.9% 1,000 ML IV ONE (10:35)
[2022-07-15] MEDS ORDERED: ONDANSETRON 4 MG/2 ML VIAL ONE (10:38)
--- NOTE | 2022-07-15 11:25 | P.CNS ---
Date of Consult: 07/15/22 Reason for Consult: SOBIA Requesting Physician: Tristian Guerrero Chief Complaint: NSTEMI/Rhabdomyolysis History of Present Illness: Patient is a 47 year old male with history of CAD s/p CABG, chronic hypertension on diuretics (home meds list lasix, aldactone and seperately SGLTi agent), HIV, insulin dependent type 2 diabetes, and chronic diastolic CHF per reports who presented to the ED via EMS after being found down. He was noted to be hypotensive, tachycardic, and febrile. 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 Initial vital signs upon arrival to ED- BP 67/41, HR 120, RR 25, 92% on 2L per reports. Pt reports feeling dizzy and having gait imbalance over the past few days, he does not know what his BP was trending. Pt tested positive for COVID and is on supplemental O2. BP improved with volume resuscitation. Labs notable for SOBIA which pt does not give a hx of, he denies being prescribed any new meds recently. Allergies No Known Allergies Allergy (Verified 09/22/19 02:55) Home Medications: Albuterol Sulfate [Proair Hfa] 2 puff IH BID PRN 09/22/19 Aspirin [Aspir-Low] 81 mg PO DAILY 09/22/19 Cyclobenzaprine [Flexeril*] 10 mg PO TID PRN 09/22/19 Dolutegravir Sodium [Tivicay] 50 mg PO DAILY 09/22/19 Empagliflozin [Jardiance] 25 mg PO DAILY 09/22/19 Emtricitabine/Tenofov Alafenam [Descovy 200-25 mg Tablet] 1 tab PO DAILY 09/22/19 Fluticasone Propionate [Flovent Diskus] 1 inh IH BID PRN 09/22/19 Furosemide [Lasix*] 40 mg PO DAILY 09/22/19 Glimepiride 1 mg PO BID 09/22/19 Insulin Detemir [Levemir Flextouch] 20 units SQ BID 09/22/19 Metformin HCl 1,000 mg PO BID 09/22/19 Potassium Chloride 10 meq PO DAILY 09/22/19 Ranitidine [Zantac*] 150 mg PO DAILY PRN 09/22/19 Rosuvastatin Calcium 40 mg PO BEDTIME 09/22/19 Sitagliptin Phosphate [Januvia*] 100 mg PO DAILY 09/22/19 Pantoprazole [Protonix Tab] 40 mg PO BID #60 tab 05/18/22 Amitriptyline [Elavil] 50 mg PO BEDTIME 07/15/22 Empagliflozin [Jardiance] 25 mg PO DAILY 07/15/22 Fenofibrate 160 mg PO DAILY 07/15/22 Spironolactone 25 mg PO DAILY 07/15/22 - Past Medical/Surgical History Diabetic: Yes -: Chronic Diastolic CHF -: Insulin Dependent DM2 -: HIV -: CAD s/p CABG -: HTN -: CABG Psychosocial/ Personal History: Patient lives at home with his family. - Family History Father Medical History: Diabetes, Stroke, Seizures Brother Medical History: Heart disease, Hypertension Mother Medical History: Heart disease Sister Medical History: Diabetes - Social History Smoking Status: Current every day smoker Alcohol use: Yes CD- Drugs: No Caffeine use: Yes Place of Residence: Home Review of Systems General: Weakness, Malaise, As per HPI Eyes: Unremarkable ENT: Unremarkable Respiratory: Shortness of Breath, Other (COVID-19 infection, interstitial prominence on imaging), As per HPI Cardiovascular: Light Headedness, As per HPI Gastrointestinal: Nausea, As per HPI Genitourinary: Unremarkable Musculoskeletal: As per HPI Integumentary: As per HPI Neurological: Weakness, Incoordination, Other (Fall), As per HPI Lymphatics: As per HPI Physical Examination Temp Pulse Resp BP Pulse Ox 103.1 F H 116 H 19 116/79 97 07/15/22 10:05 07/15/22 08:00 07/15/22 08:00 07/15/22 08:00 07/15/22 08:00 General: In no apparent distress, Cooperative HEENT: Atraumatic, Normocephalic, PERRLA, EOMI Neck: Supple Respiratory: Normal air movement, Diminished Cardiovascular: No edema, Other (Tachycardic, regular mostly) Gastrointestinal: Soft and benign, Non-distended, No tenderness Musculoskeletal: No swelling, No contractures, No erythema Integumentary: No rashes Neurological: Normal speech, Normal tone, Normal affect Urinary: Lozano catheter Laboratory Data (last 24 hrs) 07/14/22 22:35: PT 11.9, INR 1.08, APTT 30.9 07/14/22 22:35: Sodium 131 L, Potassium 3.3 L, BUN 62 H, Creatinine 3.29 H, Glucose 236 H, Total Bilirubin 1.0, AST 95 H, ALT 52, Alkaline Phosphatase 17 L 07/14/22 22:35: WBC 11.60 H, Hgb 16.7, Hct 49.0, Plt Count 88 L Conclusions/Impression: 1. Abnormal results of kidney function studies 2. Stage II SOBIA 3. Acute rhabdomyolysis 2nd to fall/immobilization +/- drugs (dolutegravir) 4. Hypotension 2nd to hypovolemia, medications/drugs +/- early sepsis, other 5. Hypovolemic hyponatremia 6. Hypokalemia 7. COVID-19 infection and possible PNA -Pt's labs reveal notable SOBIA in the setting of hypotension, intravascular volume depletion induced by the use of loop diuretic therapy, aldosterone antagonist and SGLT2i use, other. If Cr level quickly downwards trends it supports a functional injury explained by the above but if Cr level fails to quickly improve and there are abnormal findings in urine, there may be some intrinsic injury and his HIV regimen including Tenofovir can be associated with SOBIA/[place], other. -Lozano being inserted in the ER, will send off urine studies and monitor UOP closely -Cont IVF hydration with isotonic IVF -Trend CPK levels -Hold offending medications -COVID-19, HIV management per primary team/ID -Dose all meds for reduced CrCl Thank you for this referral, Camron Delaney MD, [facility]
[2022-07-15 12:29] LABS: Specific Gravity 1.019 (1.005-1.030); Urine Bacteria <20 /HPF (<20); Urine Bilirubin NEGATIVE (Negative); Urine Blood 3+ (Negative); Urine Clarity Turbid (Clear); Urine Color Yellow (Yellow); Urine Crystals Unidentified Few /HPF (None Seen); Urine Glucose 4+ (Over) (Negative); Urine Mucus Slight /HPF (None Seen); Urine Protein 3+ (Negative); Urine RBC <5 /HPF (None Seen); Urine Urobilinogen Normal (Normal); Urine WBC Clump Occasional /HPF (None Seen); Urine pH 5.5 (5.0-7.0)
[2022-07-15] MEDS: KCL 20 MEQ/100 mL IVPB 20 MEQ/100 ML BAG IV SCH ×2 (12:30→14:00)
[2022-07-15 12:31] LABS: Uric Acid 12.2 mg/dL (3.5-7.2)
[2022-07-15] MEDS ORDERED: KCL 20 MEQ/100 mL IVPB 100 ML IV ONE ×2 (12:33→14:58)
[2022-07-15] MEDS ORDERED: NA CHLORIDE 0.9% 100 ML IV ONE ×2 (12:33→21:12)
[2022-07-15] MEDS ORDERED: Meropenem 500 MG VIAL IV ONE ×2 (12:33→21:12)
--- NOTE | 2022-07-15 14:19 | ECHO ---
HEIGHT: 5 ft 6 in WEIGHT: 209 lb 7.026 oz DATE OF STUDY: REFER DR: Dorothy Michaels 2-DIMENSIONAL: YES M.MODE: YES DOPPLER: YES COLOR FLOW: YES TDS: NO PORTABLE: YES DEFINITY: NO BUBBLE STUDY: NO DIAGNOSIS: NSTEMI, CONGESTIVE HEART FAILURE CARDIAC HISTORY: CATHERIZATION: YES SURGERY: YES PROSTHETIC VALVE: NO PACEMAKER: NO MEASUREMENTS (cm) DIASTOLIC (NORMALS) SYSTOLIC (NORMALS) IVSd 1.4 (0.6-1.2) LA Diam 3.5 (1.9-4.0) LVEF 42% LVIDd 4.7 (3.5-5.7) LVIDs 3.8 (2.0-3.5) %FS 21% LVPWd 1.5 (0.6-1.2) Ao Diam 2.9 (2.0-3.7) 2 DIMENSIONAL ASSESSMENT: RIGHT ATRIUM: NORMAL LEFT ATRIUM: NORMAL RIGHT VENTRICLE: NORMAL LEFT VENTRICLE: LEFT VENTRICULAR HYPERTROPHY TRICUSPID VALVE: NORMAL MITRAL VALVE: NORMAL PULMONIC VALVE: NORMAL AORTIC VALVE: NORMAL PERICARDIAL EFFUSION: NONE AORTIC ROOT: NORMAL LEFT VENTRICULAR WALL MOTION: MODERATE GLOBAL HYPOKINESIS. DOPPLER/COLOR FLOW: NORMAL. COMMENTS: MODERATE GLOBAL HYPOKINESIS. EJECTION FRACTION 42%. LEFT VENTRICULAR HYPERTROPHY TECHNOLOGIST: ISABEL JOSE
[2022-07-15] MEDS: Meropenem 500 MG in NA CHLORIDE 0.9% 100 ML IV SCH ×2 (15:10→21:55)
--- NOTE | 2022-07-15 17:08 | CON ---
History Of Present Illness: This is a 47-year-old male with longstanding history of HIV for 20 years , being followed at [email or web address] with diabetes mellitus, congestive heart failure, was found hypotensi ve and tachycardic with fever of 103.9 at the time of evaluation, who was brought in for further eval uation I have been consulted to evaluate the patient for fever and HIV. The patient denies any chest pain, back pain, abdominal pain. Having shivering and slightly confused. Rest of the history was o btained through medical records and staff. Past Medical History: As per HPI. Social History: Nonsmoker. Occasional drinker. Family History: Noncontributory except diabetes mellitus, stroke, seizure, heart disease and hyperte nsion. Review of Systems: A 10-point review was performed. Physical Examination: General: This is a 47-year-old male, lying in the emergency room holding area, in moderate distress secondary to high fevers. HEENT: Unremarkable, bruising noted on the left eyebrow area. Neck: Supple. Lungs: Basal crackles. Heart: S1, S2. Regular. Abdomen: Soft. Bowel sounds present. GENITALIA: Scrotal area erythematous. Lozano catheter in place. Laboratory Data: Shows WBC 6.9 down from 11.6, hemoglobin 14.7, platelets are 69. Chemistry shows a BUN of 66, creatinine 3.5. The patient's creatinine from 05/18 which was normal at 1.13. His creat inine troponin level is 594. Albumin level is 2.2. Micro data; blood cultures are pendin g. Urine culture is trending. His chest x-ray done, reports are pending. CT head and neck, pending . Assessment And Plan: A 47-year-old male with longstanding history of human immunodeficiency viruses, diabetes mellitus, congestive heart failure, coming in with acute renal failure secondary to rhabdom yolysis, possible reason for fever and infection. Pending culture results we will recommend to do me ropenem and vancomycin. Monitor the patient for fevers. Cooling blanket. Consider ibuprofen if it is okay with Nephrology team. We will follow the patient as needed. Thank you Dr. Dixon for consult. NF/MODL Voice ID: [id number] Report ID: [id number]
[2022-07-15] MEDS: LORazepam 2 MG/ML VIAL IV PRN (17:15)
[2022-07-15] MEDS ORDERED: LORazepam 2 MG/ML VIAL ONE ×2 (17:26→21:12)
[2022-07-15] MEDS ORDERED: D10W 250 ML IV ONE ×2 (17:35→17:40)
[2022-07-15] MEDS ORDERED: D5 0.9 NS 1,000 ML IV ONE (17:40)
--- NOTE | 2022-07-15 17:48 | P.PN ---
Date of Service: 07/15/22 Patient seen and examined. He was experiencing intermittent SVT, with very rate up to 171. Noted SVT QRS morphology is different from QRS morphology during sinus tachycardia. Patient seen by cardiology who recommended metoprolol. Patient has been in sinus tachycardia the rest of the day. Metoprolol not given yet as heart rate has been below 120 the rest of the day and is likely reactive to fever. Patient with constant fever up to 102. Diagnosis: Severe sepsis/septic shock SOBIA COVID-19 infection. HIV Elevated troponin Elevated CK Hypoglycemia Plan: Elevated troponin deemed secondary to demand ischemia and elevated CK. Seen by cardiology Dr. Bowles, heparin drip discontinued. Patient also seen by infectious disease- Dr. Ariza. Antibiotics changed to IV meropenem and vancomycin. Tylenol as needed and cooling blanket for fever. Patient seen by nephrology-Dr. Delaney for SOBIA. There is concern for ATN given prior hypotension. Nephrology recommended to avoid NSAIDs-so no NSAIDs for fever. Renal function improved slightly with IV hydration. Hypoglycemia secondary to sepsis-started hypoglycemia protocol. IV fluid will be switched to D5 normal saline after D10 infusion is complete. Monitor renal function and CBC. Follow cultures.
[2022-07-15] MEDS ORDERED: GLUCAGON 1 MG/VIAL IM PRN (17:52)
[2022-07-15] MEDS ORDERED: D10W 250 ML BAG IV PRN (18:01)
[2022-07-15] MEDS: D5 0.9 NS 1,000 ML IV SCH (18:06)
[2022-07-15] MEDS ORDERED: DEXTROSE 10%-WATER 500 ML IV SCH (18:15)
[2022-07-15] MEDS ORDERED: METOPROLOL TARTRATE 5 MG/5 ML INJ IV ONE (19:08)
[2022-07-15] MEDS ORDERED: METOPROLOL TARTRATE 5 MG/5 ML INJ IV STA (19:37)
--- NOTE | 2022-07-15 19:47 | RAD REPORT ---
EXAM DESCRIPTION: RAD - Chest Single View - 07/14/2022 11:39 pm CLINICAL HISTORY: The patient is 47 years old and is Male; SOB TECHNIQUE: Frontal view of the chest. COMPARISON: No relevant prior studies available. FINDINGS: Lungs: Mildly prominent interstitial markings. No consolidation. Pleural space: Unremarkable. No pneumothorax. Heart: Unremarkable. Mediastinum: Unremarkable. Bones/joints: Median sternotomy wires. IMPRESSION: Mildly prominent interstitial markings. No consolidation. Electronically signed by: Mario Louis MD 07/15/2022 12:09 AM SPIKE DRIVER Due to temporary technical issues with the PACS/Fluency reporting system, reports are being signed by the in house radiologists without review as a courtesy to insure prompt reporting. The interpreting radiologist is fully responsible for the content of the report.
--- NOTE | 2022-07-15 19:51 | RAD REPORT ---
EXAM DESCRIPTION: CT - Head C Spine Mpr Wo Con - 07/15/2022 12:59 am CLINICAL HISTORY: The patient is 47 years old and is Male; fall TECHNIQUE: Axial computed tomography images of the head/brain and cervical spine without intravenous contrast. Sagittal and coronal reformatted images were created and reviewed. This CT exam was pe rformed using one or more of the following dose reduction techniques: automated exposure control, a djustment of the mA and/or kV according to patient size, and/or use of iterative reconstruction techn ique. COMPARISON: No relevant prior studies available. FINDINGS: Brain: Remote infarct in the right basal ganglia. No hemorrhage. No significant white matter disease. Ventricles: Unremarkable. No ventriculomegaly. Skull: No acute fracture. Sinuses: Right maxillary sinus mucosal thickening. Mastoid air cells: Unremarkable as visualized. No mastoid effusion. 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 No acute fracture. Normal alignment. Discs/spinal canal/neural foramina: No acute findings. No spinal canal stenosis. Soft tissues: Unremarkable. IMPRESSION: No acute intracranial abnormality. No acute findings in the cervical spine. Electronically signed by: Mario Louis MD 07/15/2022 12:08 AM TESTING AND REGULATING TECHNICIAN Due to temporary technical issues with the PACS/Fluency reporting system, reports are being signed by the in house radiologists without review as a courtesy to insure prompt reporting. The interpreting radiologist is fully responsible for the content of the report
[2022-07-15] MEDS ORDERED: LORazepam 2 MG/ML VIAL IV ONE (19:53)
[2022-07-15] MEDS ORDERED: ATORVASTATIN 20 MG TAB ONE (21:12)
[2022-07-15] MEDS: ATORVASTATIN 40 MG TAB PO SCH (21:50)
[2022-07-15] MEDS ORDERED: WATER FOR INJ,STERILE 10 ML IM PRN (22:43)
[2022-07-15] MEDS ORDERED: ZIPRASIDONE MESYLA 20 MG/VIAL IM ONE ×2 (22:43→22:44)
[2022-07-15] MEDS ORDERED: WATER FOR INJ,STERILE 10 ML ONE (22:44)
[2022-07-15] MEDS ORDERED: MIDAZOLAM HCL 2 MG/2 ML INJ IV ONE (23:42)
[2022-07-15] MEDS ORDERED: MIDAZOLAM HCL 2 MG/2 ML INJ ONE (23:47)
[2022-07-16] MEDS ORDERED: DEXTROSE 10%-WATER 500 ML IV ONE (00:36)
[2022-07-16] MEDS ORDERED: D10W 250 ML IV SCH (01:00)
[2022-07-16 03:34] LABS: Absolute Lymphocytes (CBC) 0.4 K/uL (0.7-4.9); Hematocrit 44.9 % (39.6-49.0); Lymphocytes % 7.4 % (15.3-44.8); MCV 97.2 fL (80-100); MPV 9.6 fL (7.6-11.3); RBC Red Blood Cell Count 4.62 M/uL (4.33-5.43)
[2022-07-16 03:49] LABS: Albumin 2.1 g/dL (3.4-5.0); Potassium 4.2 mmol/L (3.5-5.1); Protein, Total 6.5 g/dL (6.4-8.2)
[2022-07-16] MEDS ORDERED: D5W 1,000 ML IV ONE (05:10)
[2022-07-16] MEDS: D5 0.9 NS 1,000 ML IV SCH ×2 (05:40→15:00)
[2022-07-16] MEDS: INSULIN -REGULAR HUMAN 50 UNIT/0.5 ML ML SQ SCH ×4 (06:00→22:13)
[2022-07-16] MEDS ORDERED: FLUCONAZOLE 100 MG TAB ONE (08:31)
[2022-07-16] MEDS ORDERED: ASCORBIC ACID 500 MG TABLET ONE (08:31)
[2022-07-16] MEDS ORDERED: Meropenem 500 MG VIAL IV ONE ×2 (08:32→20:56)
[2022-07-16] MEDS ORDERED: ACETAMINOPHEN 650MG/RECT SUPP PR ONE ×2 (08:32→15:37)
[2022-07-16] MEDS ORDERED: ASPIRIN EC 81 MG TAB PO ONE (08:32)
[2022-07-16] MEDS ORDERED: LORazepam 2 MG/ML VIAL ONE ×2 (08:32→21:54)
[2022-07-16] MEDS ORDERED: METOPROLOL TAR 25 MG TAB ONE ×2 (08:32→20:56)
[2022-07-16] MEDS ORDERED: ZINC SULFATE 220 MG CAP ONE (08:32)
[2022-07-16] MEDS ORDERED: NA CHLORIDE 0.9% 250 ML ONE ×2 (08:33→20:58)
[2022-07-16] MEDS: FLUCONAZOLE 100 MG TAB PO SCH (09:00)
[2022-07-16] MEDS: ASPIRIN EC 81 MG TAB PO SCH (09:00)
[2022-07-16] MEDS: ASCORBIC ACID 500 MG TABLET PO SCH (09:00)
[2022-07-16] MEDS: METOPROLOL TAR 25 MG TAB PO SCH ×2 (09:00→21:39)
[2022-07-16] MEDS: ZINC SULFATE 220 MG CAP PO SCH (09:00)
[2022-07-16] MEDS: ACETAMINOPHEN 325 MG TABLET PO PRN ×3 (09:30→21:38)
[2022-07-16] MEDS: Meropenem 500 MG in NA CHLORIDE 0.9% 100 ML IV SCH ×2 (09:45→21:38)
[2022-07-16] MEDS: LORazepam 2 MG/ML VIAL IV PRN ×3 (09:45→22:14)
[2022-07-16] MEDS ORDERED: ACETAMINOPHEN 325 MG TABLET ONE ×2 (14:44→20:56)
[2022-07-16] MEDS ORDERED: D5 0.9 NS 1,000 ML IV ONE (15:36)
--- NOTE | 2022-07-16 17:51 | P.PN ---
Subjective Date of Service: 07/16/22 Chief Complaint: NSTEMI/Rhabdomyolysis Patient is confused. He is experiencing intermittent fever. Patient still experiencing intermittent brief episodes of SVT. Physical Examination - Vital Signs Temperature: 101.1 F Blood Pressure: 114/71 Pulse: 106 Respirations: 28 Pulse Ox (%): 94 Assessment And Plan - Current Problems (Diagnosis) (1) Metabolic encephalopathy Current Visit: Yes Status: Acute (2) COVID-19 virus infection Current Visit: Yes Status: Acute (3) HIV disease Current Visit: Yes Status: Acute (4) NSTEMI (non-ST elevated myocardial infarction) Current Visit: Yes Status: Acute (5) Rhabdomyolysis Current Visit: Yes Status: Acute Qualifiers: Rhabdomyolysis type: non-traumatic Qualified Code(s): M62.82 - Rhabdomyolysis (6) Thrombocytopenia Current Visit: Yes Status: Acute (7) SVT (supraventricular tachycardia) Current Visit: Yes Status: Acute (8) SOBIA (acute kidney injury) Current Visit: Yes Status: Acute (9) Septic shock Current Visit: Yes Status: Acute (10) Hypoglycemia Current Visit: Yes Status: Acute (11) DM type 2 (diabetes mellitus, type 2) Current Visit: Yes Status: Chronic Qualifiers: Diabetes mellitus long term care pharmacist insulin use: with long term care pharmacist use Diabetes mellitus complication status: with hyperglycemia Qualified Code(s): E11.65 - Type 2 diabetes mellitus with hyperglycemia; Z79.4 - skilled nursing (current) use of insulin - Plan Physical Exam General: Confused, in no apparent distress. Neck: Supple, No LAD Respiratory: Clear to auscultation bilaterally, Normal air movement Cardiovascular: No edema, regular, tachycardia, Normal S1 S2 Gastrointestinal: Normal bowel sounds, No tenderness Musculoskeletal: No tenderness Integumentary: No rashes Neurological: Confused, moves all extremities spontaneously. Plan: Patient with intermittent fever. Blood cultures: No growth today Urine culture: No growth. Continue aggressive antibiotics and follow blood cultures. Etiology of fever/sepsis-like viral infection. Tylenol and cooling blanket for fever. Continue empiric antibiotics for now. Infectious disease consulted. Nephrology consulted for SOBIA. Renal function is improving with IV hydration. Avoid NSAIDs per nephrology. Discontinued anticoagulation for DVT prophylaxis given worsening thrombocytopenia. Status post 10% dextrose for hypoglycemia. Continue D5 normal saline. Monitor renal function. Seen by cardiology for SVT. Echocardiogram shows global hypokinesia with EF of 42% Continue metoprolol. Monitoring BMP and optimize electrolytes.
--- NOTE | 2022-07-16 19:09 | CON ---
Date of Consultation: 07/15/2022 History Of Present Illness: Mr. Camargo is 47. He was found unconscious and came into the hospital with elevated troponin, altered mental status, fever, hypotension, and rhabdomyolysis. He denied an y chest pain. He does not have any memory of any syncope per se and denies any nausea, vomiting, narcisa phoresis, PND, orthopnea, pedal edema, or palpitations. He is fairly asymptomatic now. Past Medical History: Positive for HIV, congestive heart failure, diabetes, hypertension, and histor y of CABG. Allergies: NONE. Review of Systems: Negative. Social History: Negative. Family History: Noncontributory. Medications: Include metformin, Crestor, Januvia, Jardiance, inhalers, Lasix, insulin, and glimepiri de. He takes a medication for his HIV called Franky. Physical Examination: Vital Signs: Stable, afebrile. HEENT: Negative. Neck: Supple. No bruit. Chest: Clear. Cardiac: Regular rhythm and rate. No murmurs, gallops, or rubs. Abdomen: Benign. Extremities: No clubbing, cyanosis, or edema. Diagnostic Data: BNP of 8792. Slightly elevated troponin. He was COVID positive as well. Impression And Plan: I believe Mr. Camargo had rhabdomyolysis causing elevation of his troponin as well as his BNP. Echocardiogram is pending. I think he needs to be hydrated. His medications for h is Human Immunodeficiency Virus, congestive heart failure, diabetes, hypertension, and coronary arter y disease need to be continued. If the echocardiogram is normal, he can probably go home and we will see him in the office as an outpatient. I do not think we are dealing with acute coronary syndrome. He probably had a syncopal episode secondary to orthostatic hypotension secondary to the COVID and dehydration. NB/MODL Voice ID: [id number] Report ID: [id number]
[2022-07-16] MEDS ORDERED: NA CHLORIDE 0.9% 100 ML IV ONE (20:56)
[2022-07-16] MEDS ORDERED: ATORVASTATIN 20 MG TAB ONE (20:56)
[2022-07-16] MEDS ORDERED: VANCOMYCIN 500 MG/VIAL ONE (20:58)
[2022-07-16] MEDS ORDERED: VANCOMYCIN 1 GM/VIAL ONE (20:58)
[2022-07-16] MEDS ORDERED: VANCOMYCIN 1.25 GM in NA CHLORIDE 0.9% 250 ML IVPB SCH (21:00)
[2022-07-16] MEDS: ATORVASTATIN 40 MG TAB PO SCH (21:38)
[2022-07-17] MEDS ORDERED: RSI MEDICATION KIT IV ONE (00:42)
[2022-07-17] MEDS: SUCCINYLCHOLINE 20 MG/ML (10 ML) IV SCH (00:45)
[2022-07-17] MEDS ORDERED: MIDAZOLAM HCL 2 MG/2 ML INJ IV ONE (00:45)
[2022-07-17] MEDS ORDERED: MIDAZOLAM HCL 2 MG/2 ML INJ ONE ×4 (00:47→02:32)
[2022-07-17] MEDS: D5 0.9 NS 1,000 ML IV SCH ×3 (01:00→21:00)
[2022-07-17] MEDS ORDERED: propofoL 1,000 MG/100 ML VIAL IV ONE (01:14)
--- NOTE | 2022-07-17 01:18 | P.PN ---
Date of Service: 07/17/22 Patient becoming more hypoxic. ABG obtained which showed pH 7.22, pCO2 55, pO2 64.5, HCO3 22. I obtained chest and brain CT. When returning from CT, he was on non-rebreather and desaturating to the low 70s. Decision was made to intubate. Sedated with 4 mg versed and 140 succinycholine. Intubated successfully with 1 attempt with glidescope 4 blade. A 7.5 ET tube was placed at 24 cm. Tube confirmed by color change on capnography, condensation in tube, and bilateral breath sounds. Chest CT showed "Bilateral groundglass opacities and interlobular septal thickening. Findings consistent with but not specific for atypical pneumonia, including viral infection. Moderate left pleural effusion. Trace right pleural effusion. Hepatic steatosis. Possible cholelithiasis." Head CT negative for acute findings. Brain CT negative for acute findings.
[2022-07-17] MEDS ORDERED: HYDROCORTISONE SUC 100 MG INJ IV ONE (01:26)
[2022-07-17 01:57] LABS: Blood Gas Oxyhemoglobin 86.8 % (94-97)
[2022-07-17] MEDS ORDERED: propofoL 1,000 MG/100 ML VIAL IV SCH (02:00)
[2022-07-17] MEDS ORDERED: HYDROCORTISONE SUC 100 MG INJ ONE (02:13)
[2022-07-17] MEDS ORDERED: LORazepam 2 MG/ML VIAL ONE ×3 (02:21→15:59)
[2022-07-17] MEDS ORDERED: MIDAZOLAM HCL ONE (02:28)
[2022-07-17] MEDS ORDERED: NA CHLORIDE 0.9% 100 ML IV ONE ×3 (02:35→20:23)
[2022-07-17] MEDS ORDERED: MIDAZOLAM HCL 100 MG in NA CHLORIDE 0.9% 80 ML IV SCH (03:00)
[2022-07-17] MEDS ORDERED: LORazepam 2 MG/ML VIAL IV ONE (03:02)
[2022-07-17 03:16] LABS: Absolute Lymphocytes (CBC) 0.4 K/uL (0.7-4.9); Hematocrit 40.1 % (39.6-49.0); Lymphocytes % 8.1 % (15.3-44.8); MCV 96.4 fL (80-100); MPV 9.8 fL (7.6-11.3); RBC Red Blood Cell Count 4.16 M/uL (4.33-5.43)
[2022-07-17 03:48] LABS: Albumin 1.8 g/dL (3.4-5.0); Bilirubin Total 0.7 mg/dL (0.2-1.0); Magnesium 2.8 mg/dL (1.8-2.4); Potassium 4.9 mmol/L (3.5-5.1)
[2022-07-17] MEDS: INSULIN -REGULAR HUMAN 50 UNIT/0.5 ML ML SQ SCH ×4 (05:15→18:00)
[2022-07-17] MEDS: LORazepam 2 MG/ML VIAL IV PRN ×2 (08:50→16:14)
[2022-07-17] MEDS: FLUCONAZOLE 100 MG TAB PO SCH (09:00)
[2022-07-17] MEDS: Meropenem 500 MG in NA CHLORIDE 0.9% 100 ML IV SCH ×2 (09:00→20:35)
[2022-07-17] MEDS: ASPIRIN EC 81 MG TAB PO SCH (09:00)
[2022-07-17] MEDS: ASCORBIC ACID 500 MG TABLET PO SCH (09:00)
[2022-07-17] MEDS: METOPROLOL TAR 25 MG TAB PO SCH ×2 (09:00→21:00)
[2022-07-17] MEDS: ZINC SULFATE 220 MG CAP PO SCH (09:00)
[2022-07-17] MEDS ORDERED: ASPIRIN 325 MG TAB ONE (10:08)
[2022-07-17] MEDS ORDERED: ASCORBIC ACID 500 MG TABLET ONE (10:10)
[2022-07-17] MEDS ORDERED: ASPIRIN 81 MG CHEWABLE TABLET ONE (10:10)
[2022-07-17] MEDS ORDERED: Meropenem 500 MG VIAL IV ONE ×2 (10:10→20:23)
[2022-07-17] MEDS ORDERED: ZINC SULFATE 220 MG CAP ONE (10:10)
[2022-07-17] MEDS ORDERED: FLUCONAZOLE 100 MG TAB ONE (10:10)
[2022-07-17] MEDS: ACETAMINOPHEN 325 MG TABLET PO PRN ×3 (10:33→23:14)
[2022-07-17] MEDS ORDERED: ACETAMINOPHEN 325 MG TABLET ONE ×3 (10:41→23:11)
[2022-07-17] MEDS ORDERED: D5 0.9 NS 1,000 ML IV ONE (10:41)
--- NOTE | 2022-07-17 15:45 | P.PN ---
Subjective Date of Service: 07/17/22 Chief Complaint: NSTEMI/Rhabdomyolysis Patient was intubated last night for hypoxia. Fever has improved. T-max 100.3 today. He is intermittently hypotensive. Physical Examination - Vital Signs Temperature: 98.8 F Blood Pressure: 85/61 Pulse: 101 Respirations: 30 Pulse Ox (%): 97 - Studies Microbiology Data (last 24 hrs): 07/14/22 11:40 Clean Catch Urine [place] Count - Final No growth. 07/14/22 11:40 Clean Catch Urine - Final No growth. Assessment And Plan - Current Problems (Diagnosis) (1) Metabolic encephalopathy Current Visit: Yes Status: Acute (2) COVID-19 virus infection Current Visit: Yes Status: Acute (3) HIV disease Current Visit: Yes Status: Acute (4) NSTEMI (non-ST elevated myocardial infarction) Current Visit: Yes Status: Acute (5) Rhabdomyolysis Current Visit: Yes Status: Acute Qualifiers: Rhabdomyolysis type: non-traumatic Qualified Code(s): M62.82 - Rhabdomyolysis (6) Thrombocytopenia Current Visit: Yes Status: Acute (7) SVT (supraventricular tachycardia) Current Visit: Yes Status: Acute (8) SOBIA (acute kidney injury) Current Visit: Yes Status: Acute (9) Septic shock Current Visit: Yes Status: Acute (10) Hypoglycemia Current Visit: Yes Status: Acute (11) DM type 2 (diabetes mellitus, type 2) Current Visit: Yes Status: Chronic Qualifiers: 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 Opens eyes to verbal. HEENT: Intubated and on mechanical ventilation Neck: Supple, No LAD Respiratory: Bibasilar Rales, bilateral upper airway transmitted sounds. Cardiovascular: No edema, regular, tachycardia, Normal S1 S2 Gastrointestinal: Normal bowel sounds, No tenderness Musculoskeletal: No tenderness Integumentary: No rashes Neurological: Sedated. Plan: Fever episodes improved. T-max 100.3 today Blood cultures: No growth. Urine culture: No growth. Repeat CT chest shows bilateral groundglass opacity and moderate left pleural effusion. Patient has COVID-pneumonia. Etiology of fever/sepsis-likely viral infection-COVID PNA. Start IV steroid, zinc, vitamin C and vitamin D. Monitor CRP and ESR. Consult pulmonary. Baricitinib as needed for high CRP. Tylenol and cooling blanket for fever. Continue empiric antibiotics for now. Infectious disease consulted. Nephrology seen patient for SOBIA. Renal function is improving with IV hydration. Avoid NSAIDs per nephrology. Discontinued anticoagulation for DVT prophylaxis given worsening thrombocytope eddy. Status post 10% dextrose for hypoglycemia. Continue D5 normal saline. Monitor fingerstick glucose. Seen by cardiology for SVT. Echocardiogram shows global hypokinesia with EF of 42% Continue metoprolol. Monitoring BMP and optimize electrolytes.
[2022-07-17] MEDS ORDERED: METHYLPREDNISOLONE 40 MG INJ ONE (16:26)
[2022-07-17] MEDS: METHYLPREDNISOLONE 40 MG INJ IV SCH (16:42)
[2022-07-17] MEDS ORDERED: dexAMETHasone 10 MG/ML VIAL ONE (20:22)
[2022-07-17] MEDS ORDERED: ATORVASTATIN 20 MG TAB ONE (20:22)
[2022-07-17] MEDS ORDERED: D5W 0 ML IV ONE (20:23)
[2022-07-17] MEDS: ATORVASTATIN 40 MG TAB PO SCH (20:35)
[2022-07-17] MEDS ORDERED: D5 0.45 NS 1,000 ML IV ONE (20:42)
[2022-07-17] MEDS: dexAMETHasone 10 MG/ML VIAL IV SCH (21:00)
[2022-07-17] MEDS ORDERED: VANCOMYCIN 1.25 GM in NA CHLORIDE 0.9% 250 ML IVPB SCH (21:00)
[2022-07-18] MEDS ORDERED: LORazepam 2 MG/ML VIAL ONE ×2 (00:32→21:32)
[2022-07-18] MEDS: SUCCINYLCHOLINE 20 MG/ML (10 ML) IV SCH (00:45)
[2022-07-18] MEDS: LORazepam 2 MG/ML VIAL IV PRN ×2 (00:57→21:36)
[2022-07-18] MEDS: METHYLPREDNISOLONE 40 MG INJ IV SCH ×2 (01:00→09:00)
[2022-07-18] MEDS ORDERED: INSULIN -REGULAR HUMAN 50 UNIT/0.5 ML ML ONE ×5 (01:06→20:56)
[2022-07-18] MEDS ORDERED: SUCCINYLCHOLINE 20 MG/ML (10 ML) IV ONE ×2 (01:09→10:48)
[2022-07-18] MEDS ORDERED: METHYLPREDNISOLONE 40 MG INJ ONE ×2 (01:22→08:00)
[2022-07-18 05:02] LABS: Absolute Lymphocytes (CBC) 0.2 K/uL (0.7-4.9); Hematocrit 37.4 % (39.6-49.0); Lymphocytes % 3.5 % (15.3-44.8); MCV 96.3 fL (80-100); MPV 9.4 fL (7.6-11.3); RBC Red Blood Cell Count 3.88 M/uL (4.33-5.43)
[2022-07-18] MEDS: INSULIN -REGULAR HUMAN 50 UNIT/0.5 ML ML SQ SCH ×5 (05:20→18:00)
[2022-07-18 05:21] LABS: Albumin 1.5 g/dL (3.4-5.0); Bilirubin Total 0.7 mg/dL (0.2-1.0); Potassium 3.6 mmol/L (3.5-5.1); Protein, Total 5.8 g/dL (6.4-8.2)
[2022-07-18 05:32] LABS: Blood Morphology Comment NOT SEEN (NOT SEEN); Platelet Estimate ADEQ
[2022-07-18] MEDS ORDERED: ACETAMINOPHEN 325 MG TABLET ONE (05:57)
[2022-07-18] MEDS: ACETAMINOPHEN 325 MG TABLET PO PRN (06:04)
[2022-07-18] MEDS: D5 0.9 NS 1,000 ML IV SCH ×2 (07:00→17:00)
[2022-07-18] MEDS ORDERED: KCL 20 MEQ/100 mL IVPB 20 MEQ/100 ML BAG IV SCH (07:00)
[2022-07-18] MEDS ORDERED: ASCORBIC ACID 500 MG TABLET ONE (07:58)
[2022-07-18] MEDS ORDERED: FLUCONAZOLE 100 MG TAB ONE (07:59)
[2022-07-18] MEDS ORDERED: VITAMIN D 1000 UNIT TAB ONE ×2 (07:59→08:11)
[2022-07-18] MEDS ORDERED: ASPIRIN EC 81 MG TAB PO ONE (07:59)
[2022-07-18] MEDS ORDERED: dexAMETHasone 10 MG/ML VIAL ONE (07:59)
[2022-07-18] MEDS ORDERED: METOPROLOL TAR 25 MG TAB ONE (08:00)
[2022-07-18] MEDS ORDERED: ZINC SULFATE 220 MG CAP ONE (08:00)
[2022-07-18] MEDS ORDERED: Meropenem 500 MG VIAL IV ONE ×2 (08:00→21:06)
[2022-07-18] MEDS ORDERED: KCL 20 MEQ/100 mL IVPB 100 ML IV ONE (08:05)
[2022-07-18] MEDS ORDERED: NA CHLORIDE 0.9% 100 ML IV ONE ×2 (08:11→21:06)
[2022-07-18] MEDS: FLUCONAZOLE 100 MG TAB PO SCH (09:00)
[2022-07-18] MEDS: dexAMETHasone 10 MG/ML VIAL IV SCH (09:00)
[2022-07-18] MEDS: ASCORBIC ACID 500 MG TABLET PO SCH (09:00)
[2022-07-18] MEDS: METOPROLOL TAR 25 MG TAB PO SCH ×2 (09:00→21:00)
[2022-07-18] MEDS: Meropenem 500 MG in NA CHLORIDE 0.9% 100 ML IV SCH ×2 (09:00→21:00)
[2022-07-18] MEDS: ASPIRIN EC 81 MG TAB PO SCH (09:00)
[2022-07-18] MEDS: ZINC SULFATE 220 MG CAP PO SCH (09:00)
[2022-07-18] MEDS ORDERED: VITAMIN D 5,000 UNIT CAP PO SCH (09:00)
[2022-07-18] MEDS ORDERED: D5 0.9 NS 1,000 ML IV ONE (09:52)
[2022-07-18] MEDS ORDERED: ETOMIDATE 20 MG/10 ML VIAL IV ONE (10:48)
--- NOTE | 2022-07-18 11:46 | RAD REPORT ---
EXAM DESCRIPTION: CT - Head Brain Wo Cont - 07/17/2022 6:56 am CLINICAL HISTORY: 47-year-old male with altered mental status. COMPARISON: 07/14/2022. TECHNIQUE: CT brain without contrast. This exam was performed according to our departmental dose opt imization program which includes use of automated exposure control, adjustment of the mA and/or kV ac cording to patient size and/or use of iterative reconstruction technique. FINDINGS: The ventricles, sulci, and cisterns are within normal limits. The porter-white matter diff erentiation is preserved. There is no mass effect, midline shift, intra- or extra-axial fluid colle ction/acute hemorrhage. The osseous structures are unremarkable. The paranasal sinuses are within normal limits. Partial opacification of the mastoid air cells. IMPRESSION: No acute intracranial abnormalities. Electronically signed by: Kiki Leggett MD 07/17/2022 1:00 AM QUALITY ASSURANCE ASSISTANT Due to temporary technical issues with the PACS/Fluency reporting system, reports are being signed by the in house radiologists without review as a courtesy to insure prompt reporting. The interpreting radiologist is fully responsible for the content of the report.
--- NOTE | 2022-07-18 11:49 | RAD REPORT ---
EXAM DESCRIPTION: CT - Thorax Khang Martínez - 07/17/2022 6:56 am CLINICAL HISTORY: The patient is 47 years old and is Male; hypoxia TECHNIQUE: Axial computed tomography images of the chest without intravenous contrast. Sagittal an d coronal reformatted images were created and reviewed. This CT exam was performed using one or mor e of the following dose reduction techniques: automated exposure control, adjustment of the mA and/ or kV according to patient size, and/or use of iterative reconstruction technique. DLP: 975 mGy*cm COMPARISON: Chest radiograph dated 07/14/2022. FINDINGS: LUNGS: Bilateral ground glass opacities and interlobular septal thickening. PLEURAL SPACE: Moderate left pleural effusion. Trace right pleural effusion. No pneumothorax. HEART: Prior median sternotomy. Mild cardiomegaly. No pericardial effusion. No significant coronary artery calcifications. BONES/JOINTS: Unremarkable. No acute fracture. No dislocation. SOFT TISSUES: Unremarkable. VASCULATURE: Unremarkable. No thoracic aortic aneurysm. LYMPH NODES: Unremarkable. No enlarged lymph nodes. LIVER: Hepatic steatosis. GALLBLADDER AND BILE DUCTS: Possible cholelithiasis. IMPRESSION: 1. Bilateral groundglass opacities and interlobular septal thickening. Findings cons istent with but not specific for atypical pneumonia, including viral infection. 2. Moderate left pleural effusion. Trace right pleural effusion. 3. Hepatic steatosis. 4. Possible cholelithiasis. Electronically signed by: Ronny Franklin DO 07/17/2022 1:00 AM VP OF CUSTOMER EXPERIENCE STRATEGY Due to temporary technical issues with the PACS/Fluency reporting system, reports are being signed by the in house radiologists without review as a courtesy to insure prompt reporting. The interpreting radiologist is fully responsible for the content of the report.
--- NOTE | 2022-07-18 11:54 | RAD REPORT ---
EXAM DESCRIPTION: RAD - Chest Single View - 07/17/2022 1:14 am CLINICAL HISTORY: 7 years Male, post intubation COMPARISON: Chest radiograph dated 07/14/2022 IMPRESSION: Endotracheal tube terminating approximately 5.8 cm above the solis. The distal tip of the gastric tube is not seen. Bilateral interstitial opacities. Left pleural effusion. No pneumothorax. Cardiomegaly with vascular congestion and interstitial edema. No acute osseous abnormality. . Electronically signed by: Ronny Franklin DO 07/17/2022 1:45 AM RAIL DETECTOR CAR OPERATOR Due to temporary technical issues with the PACS/Fluency reporting system, reports are being signed by the in house radiologists without review as a courtesy to insure prompt reporting. The interpreting radiologist is fully responsible for the content of the report.
--- NOTE | 2022-07-18 12:16 | P.CNS ---
Date of Consult: 07/18/22 Reason for Consult: Respiratory failure Chief Complaint: NSTEMI/Rhabdomyolysis History of Present Illness: Patient is 47 years of age with a history of coronary artery disease metabolic syndrome. With shock sepsis hypotension he was resuscitated is currently on a ventilator on a Versed drip Patient is coronavirus positive Allergies No Known Allergies Allergy (Verified 09/22/19 02:55) Home Medications: Albuterol Sulfate [Proair Hfa] 2 puff IH BID PRN 09/22/19 Aspirin [Aspir-Low] 81 mg PO DAILY 09/22/19 Cyclobenzaprine [Flexeril*] 10 mg PO TID PRN 09/22/19 Dolutegravir Sodium [Tivicay] 50 mg PO DAILY 09/22/19 Empagliflozin [Jardiance] 25 mg PO DAILY 09/22/19 Emtricitabine/Tenofov Alafenam [Descovy 200-25 mg Tablet] 1 tab PO DAILY 09/22/19 Fluticasone Propionate [Flovent Diskus] 1 inh IH BID PRN 09/22/19 Furosemide [Lasix*] 40 mg PO DAILY 09/22/19 Glimepiride 1 mg PO BID 09/22/19 Insulin Detemir [Levemir Flextouch] 20 units SQ BID 09/22/19 Metformin HCl 1,000 mg PO BID 09/22/19 Potassium Chloride 10 meq PO DAILY 09/22/19 Ranitidine [Zantac*] 150 mg PO DAILY PRN 09/22/19 Rosuvastatin Calcium 40 mg PO BEDTIME 09/22/19 Sitagliptin Phosphate [Januvia*] 100 mg PO DAILY 09/22/19 Pantoprazole [Protonix Tab] 40 mg PO BID #60 tab 05/18/22 Amitriptyline [Elavil] 50 mg PO BEDTIME 07/15/22 Empagliflozin [Jardiance] 25 mg PO DAILY 07/15/22 Fenofibrate 160 mg PO DAILY 07/15/22 Spironolactone 25 mg PO DAILY 07/15/22 - Past Medical/Surgical History Diabetic: Yes -: Chronic Diastolic CHF -: Insulin Dependent DM2 -: HIV -: CAD s/p CABG -: HTN -: CABG Psychosocial/ Personal History: Patient lives at home with his family. - Family History Father Medical History: Diabetes, Stroke, Seizures Brother Medical History: Heart disease, Hypertension Mother Medical History: Heart disease Sister Medical History: Diabetes - Social History Smoking Status: Current every day smoker Alcohol use: Yes CD- Drugs: No Caffeine use: Yes Place of Residence: Home Review of Systems is unable to be obtained Physical Examination Temp Pulse Resp BP Pulse Ox 99.1 F 89 35 H 128/76 98 07/18/22 10:00 07/18/22 10:00 07/18/22 10:00 07/18/22 10:00 07/18/22 10:00 General: Unresponsive Respiratory: Clear to auscultation bilaterally, Diminished Cardiovascular: No edema, Normal S1 S2 Gastrointestinal: Normal bowel sounds, Soft and benign - Problems (1) Septic shock Current Visit: Yes Status: Acute Plan: Patient is 47 years of age admitted with septic shock he does have a left lower lobe pleural effusion metabolic syndrome with coronary artery disease diabetes and heart failure he has fatty liver White count is normal number cytopenia resolved blood cultures are all negative ordered sputum cultures patient is less than 50% 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
--- NOTE | 2022-07-18 12:47 | PN ---
Subjective: The patient was seen and examined at bedside. He continues to be confused and has persi stent fevers. Objective: Vital Signs: Showing temperature of 99.7 at this time, pulse rate of 98, respiratory rat e of 28, and blood pressure 110/67. General: He appears in no acute distress. HEENT: Atraumatic head. Lungs: Clear to auscultation. Abdomen: Soft. Extremities: Showed no evidence of edema. Laboratory Data: Showing creatinine of 2.06, BUN of 48, sodium of 135 and potassium of 4.2. CBC [place] platelet count of 49. WBC count of 5.8, hemoglobin of 15.1, hematocrit of 44.9. His creatine k inase was 5104, slightly worse from 3800 yesterday. LFTs showed elevated AST and normal ALT. Impression: 1.Acute renal failure, likely secondary to acute tubular necrosis. Currently with improving renal f unction. We will continue IV fluids at this time. 2.Rhabdomyolysis. Continue IV fluids and monitor CPK levels. 3.Hypotension. Continue volume depletion. The patient continues to seem volume depleted at this ti me. 4.COVID-19 infection, possible pneumonia. The patient is being followed by Infectious Disease who i s managing his antibiotics. They have been adjusted for renal function. He currently remains on genesis openem and vancomycin. 5.Elevated troponin secondary to demand ischemia. Plan: Overall patient is doing okay at this time. Continue to monitor closely. Continue IV fluids. Monitor volume status and avoid further hypotension nephrotoxins. Current medications have been reviewed in detail. Continue IV fluids with normal saline at 100 cc an hour. VV/MODL Voice ID: [id number] Report ID: [id number]
[2022-07-18] MEDS ORDERED: REMDESIVIR (EUA) 200 MG in NA CHLORIDE 0.9% 250 ML IV ONE (13:00)
[2022-07-18] MEDS: AZITHROMYCIN IV 500 MG in NA CHLORIDE 0.9% 250 ML IVPB SCH (13:00)
[2022-07-18] MEDS ORDERED: AZITHROMYCIN 500 MG INJ IVPB ONE ×2 (13:09→13:22)
[2022-07-18] MEDS ORDERED: NA CHLORIDE 0.9% 250 ML ONE ×2 (13:10→13:22)
--- NOTE | 2022-07-18 13:54 | EKG ---
Test Date: 2022-07-15 Test Time: 18:52:05 Boat Builder: MEASUREMENT RESULTS: Intervals: Rate: 182 [place]: QRSD: 92 QT: 266 QTc: 462 [place]: P: [place]: QRS: 34 T: 35 INTERPRETIVE STATEMENTS: Supraventricular tachycardia Low voltage QRS Septal infarct, age undetermined Lateral infarct, age undetermined Abnormal ECG Compared to ECG 07/15/2022 07:26:37 Low QRS voltage now present Sinus tachycardia no longer present Myocardial infarct finding still present Electronically Signed On 07-18-22 13:50:44 POLICE SERGEANT PRECINCT by Dragan Collins
--- NOTE | 2022-07-18 13:56 | EKG ---
Test Date: 2022-07-15 Test Time: 07:14:57 Track Repair Person: ANDREW MEASUREMENT RESULTS: Intervals: Rate: 177 [place]: QRSD: 86 QT: 272 QTc: 466 [place]: P: [place]: QRS: 69 T: 7 INTERPRETIVE STATEMENTS: Supraventricular tachycardia Anteroseptal infarct, age undetermined Abnormal ECG Compared to ECG 07/14/2022 23:51:45 Sinus tachycardia no longer present Myocardial infarct finding still present Electronically Signed On 07-18-22 13:53:36 CAMP HEAD COUNSELOR by Dragan Collins
--- NOTE | 2022-07-18 13:56 | EKG ---
Test Date: 2022-07-15 Test Time: 07:26:37 Reconciliation Analyst: ANDREW MEASUREMENT RESULTS: Intervals: Rate: 111 [place]: 140 QRSD: 92 QT: 374 QTc: 508 [place]: P: 67 [place]: 140 QRS: 69 T: 14 INTERPRETIVE STATEMENTS: Sinus tachycardia Possible Left atrial enlargement Anteroseptal infarct, age undetermined Abnormal ECG Compared to ECG 07/15/2022 07:14:57 Supraventricular tachycardia no longer present Myocardial infarct finding still present Electronically Signed On 07-18-22 13:53:31 FORENSIC COMPUTER EXAMINER by Dragan Collins
[2022-07-18] MEDS ORDERED: propofoL 1,000 MG/100 ML VIAL IV SCH (14:00)
[2022-07-18] MEDS ORDERED: ACETAMINOPHEN 650MG/RECT SUPP PR ONE ×2 (15:33→22:23)
[2022-07-18] MEDS: ACETAMINOPHEN 650MG/RECT SUPP PR PRN ×2 (16:19→22:20)
--- NOTE | 2022-07-18 16:48 | P.PN ---
Subjective Date of Service: 07/18/22 Chief Complaint: NSTEMI/Rhabdomyolysis No major changes from yesterday. Patient continues to experience intermittent fever and intermittent SVT. Stable on the vent. Blood pressure readings are better today. Physical Examination - Vital Signs Temperature: 100.4 F Blood Pressure: 118/70 Pulse: 85 Respirations: 32 Pulse Ox (%): 98 Assessment And Plan - Current Problems (Diagnosis) (1) Metabolic encephalopathy Current Visit: Yes Status: Acute (2) COVID-19 virus infection Current Visit: Yes Status: Acute (3) HIV disease Current Visit: Yes Status: Acute (4) NSTEMI (non-ST elevated myocardial infarction) Current Visit: Yes Status: Acute (5) Rhabdomyolysis Current Visit: Yes Status: Acute Qualifiers: Rhabdomyolysis type: non-traumatic Qualified Code(s): M62.82 - Rhabdomyolysis (6) Thrombocytopenia Current Visit: Yes Status: Acute (7) SVT (supraventricular tachycardia) Current Visit: Yes Status: Acute (8) SOBIA (acute kidney injury) Current Visit: Yes Status: Acute (9) Septic shock Current Visit: Yes Status: Acute (10) Hypoglycemia Current Visit: Yes Status: Acute (11) DM type 2 (diabetes mellitus, type 2) Current Visit: Yes Status: Chronic Qualifiers: Diabetes mellitus [facility] insulin use: with [facility] use Diabetes mellitus complication status: with hyperglycemia Qualified Code(s): E11.65 - Type 2 diabetes mellitus with hyperglycemia; Z79.4 - jail (current) use of insulin - Plan Physical Exam General: Sedated HEENT: Intubated and on mechanical ventilation Neck: Supple, No LAD Respiratory: Bibasilar Rales, bilateral upper airway transmitted sounds. Cardiovascular: No edema, regular, tachycardia, Normal S1 S2 Gastrointestinal: Normal bowel sounds, No tenderness Musculoskeletal: No tenderness Integumentary: No rashes Neurological: Sedated. Plan: Frequency of fever episode improved. Blood cultures: No growth. Urine culture: No growth. Repeat CT chest shows bilateral groundglass opacity and moderate left pleural effusion. COVID pneumonia versus bacterial pneumonia Continue IV steroid, zinc, vitamin C and vitamin D. CRP is markedly elevated. Pulmonary evaluated patient-recommended Precedex drip and weaning trials Infectious disease seen patient and started on remdesivir. Antibiotics also changed to IV Zithromax and meropenem per infectious disease. Tylenol and cooling blanket for fever. Continue empiric antibiotics for now. Nephrology seen patient for SOBIA. Renal function is improving with IV hydration. Avoid NSAIDs per nephrology. Discontinued anticoagulation for DVT prophylaxis given worsening thrombocytopenia. Status post 10% dextrose for hypoglycemia. Noted hepatic steatosis and hypoalbuminemia. Continue D5 normal saline. Monitor fingerstick glucose. Seen by cardiology for SVT. Echocardiogram shows global hypokinesia with EF of 42% Continue metoprolol. Monitoring BMP and optimize electrolytes. Prognosis guarded.
[2022-07-18] MEDS ORDERED: IBUPROFEN 400 MG TAB ONE (16:58)
--- NOTE | 2022-07-18 17:57 | PN ---
Subjective: Patient lying in the emergency room. Was intubated yesterday because of hypoxia, on FiO 2 of 45%. Patient remains sedated. Objective: Vital Signs: Temperature 99.4, pulse 94, respirations 35, blood pressure 141/64. Lungs: Basal crackles. Heart: S1, S2. Regular. Abdomen: Soft, nontender. Bowel sounds present. Extremities: No edema. Laboratory Data: WBC 4.4, hemoglobin 12.5, platelets 114. Chemistry shows BUN of 45, creatinine 1.1 . Albumin level was 4.5. Micro data shows blood cultures, no growth. COVID-19 positive. Assessment And Plan: Respiratory failure secondary to pneumonia, COVID-19. We will recommend to sta rt patient on remdesivir. Continue Merrem and discontinue vancomycin and start patient on Zithromax. Continue Diflucan. Leukocytosis is improved. Respiratory failure with COVID-19 pneumonia, pancyto penia, thrombocytopenia. Continue supportive care and current treatment. Continue pulmonary hygiene . We will follow patient as needed. NF/MODL Voice ID: [id number] Report ID: [id number]
--- NOTE | 2022-07-18 18:08 | P.PN ---
Date of Service: 07/18/22 Vital Signs Temp Pulse Resp BP Pulse Ox 100.4 F 85 32 H 118/70 98 07/18/22 17:09 07/18/22 17:09 07/18/22 17:09 07/18/22 17:09 07/18/22 17:09 Medications Acetaminophen (Acetaminophen 650mg/Rect Supp) 650 mg [place] Q4H PRN PRN Reason: TEMP > 100.4' F Last Admin: 07/18/22 16:19 Dose: 650 mg Albuterol Sulfate (Albuterol 2.5 Mg/3 Ml Neb [place]) 2.5 mg NEB [id number] PRN PRN Reason: SHORTNESS OF BREATH Aspirin (Aspirin Ec 81 Mg Tab) 81 mg PO DAILY [facility] Last Admin: 07/18/22 09:00 Dose: 81 mg Atorvastatin Calcium (Atorvastatin 40 Mg Tab) 40 mg PO BEDTIME [facility] Last Admin: 07/17/22 20:35 Dose: 40 mg Dextrose (D10w 250 Ml Bag) 125 ml IV PRN PRN PRN Reason: HYPOGLYCEMIA Last Admin: 07/16/22 00:43 Dose: 125 ml Fluconazole (Fluconazole 100 Mg Tab) 200 mg PO DAILY [facility] Last Admin: 07/18/22 09:00 Dose: 200 mg Glucagon (Glucagon 1 Mg/Vial) 1 mg IM 1X PRN PRN Reason: HYPOGLYCEMIA Hydromorphone HCl (Hydromorphone Hcl 2 Mg/Ml Inj) 2 mg IV Q4HP PRN PRN Reason: Pain scale 8-10 (Severe) Dextrose (D10w 500 Ml Ivpb) 500 mls @ 0 mls/hr IV .Q0M [facility] Last Admin: 07/15/22 17:35 Dose: 500 mls Dextrose/Sodium Chloride (D5w Ns 1-Liter Bag) 1,000 mls @ 100 mls/hr IV .Q10H [facility] Last Admin: 07/18/22 07:00 Dose: 1,000 mls Dextrose (Dextrose 10% Water Iv Soln.) 250 mls @ 0 mls/hr IV .Q0M [facility] Meropenem 500 mg/ Sodium (Chloride) 100 mls @ 200 mls/hr IV Q12HR [facility] Last Admin: 07/18/22 09:00 Dose: 100 mls Azithromycin 500 mg/ Sodium (Chloride) 250 mls @ 250 mls/hr IVPB DAILY [facility] Last Admin: 07/18/22 13:00 Dose: 250 mls REMDESIVIR (EUA) 100 mg/ (Sodium Chloride) 250 mls @ 500 mls/hr IV DAILY [facility] Stop: 07/22/22 09:29 Dexmedetomidine HCl 200 mcg/ (Sodium Chloride) 100 mls @ 9.5 mls/hr IV TITR [facility]; Protocol Insulin Human Regular (Insulin -Regular Human 50 Unit/0.5 Ml Ml) 0 unit SQ Q6HR [facility]; Protocol Last Admin: 07/18/22 12:00 Dose: 2 unit Lorazepam (Lorazepam 2 Mg/Ml Vial) 2 mg IV Q2H PRN PRN Reason: SEDATION Metoprolol Tartrate (Metoprolol Tar 25 Mg Tab) 25 mg PO BID [facility] Last Admin: 07/18/22 09:00 Dose: 25 mg Ondansetron HCl (Ondansetron 4 Mg/2 Ml Vial) 4 mg IV Q6HP PRN PRN Reason: NAUSEA / VOMITING Last Admin: 07/15/22 10:30 Dose: 4 mg Sodium Chloride (Flush Normal Saline 10 Ml) 10 ml IV BID [facility] Last Admin: 07/18/22 09:00 Dose: 10 ml Sterile Water (Water For Inj,Sterile 10 Ml) 1.2 ml IM UD PRN PRN Reason: DILUTION OF MED Succinylcholine Chloride (Succinylcholine 20 Mg/Ml (10 Ml)) 140 mg IV 1X [facility] Last Admin: 07/18/22 00:45 Dose: 140 mg Microbiology Results 07/14/22 11:40 Clean Catch Urine [place] Count - Final No growth. 07/14/22 11:40 Clean Catch Urine - Final No growth. 07/14/22 22:54 Blood - Blood Aerobic Blood Culture - Preliminary No growth in 24 hours. 07/14/22 22:54 Blood - Blood Anaerobic Blood Culture - Preliminary No growth in 24 hours. 07/14/22 22:35 Blood - Blood Aerobic Blood Culture - Preliminary No growth in 24 hours. 07/14/22 22:35 Blood - Blood Anaerobic Blood Culture - Preliminary No growth in 24 hours. Assessment/ Plan: Nephrology Limited IH/ ROS due to intubation/ AMS No acute events overnight Vitals, medications, blood work and imaging reviewed in the chart. NAD. NCAT. MMM. Neck supple. CTA. RRR. Abd ND. No C/C/E. No rash. Responsive. No speech. LEFT VENTRICULAR WALL MOTION: MODERATE GLOBAL HYPOKINESIS. DOPPLER/COLOR FLOW: NORMAL. COMMENTS: MODERATE GLOBAL HYPOKINESIS. EJECTION FRACTION 42%. LEFT VENTRICULAR HYPERTROPHY SOBIA likely due to hypovolemia complicated by ATN CKD with proteinuria -No NSAIDs -Change IVF D51/2NS Rhabdomyolysis, resolving -Continue IVF Hypotension -Continue IVF Systolic CHF, chronic LVH -Daily weight DM II with hyperglycemia & CKD -RISS Severe malnutrition Hypoalbuminemia NPO and acute decreased functional ability -Recommend tube feedings Anemia in chronic illness Thrombocytopenia -Monitor CBC COVID-19 PNA -Continue Dexamethasone -Continue abx Toxic metabolic encephalopathy -Continue supportive care Greater than 30min patient care
[2022-07-18] MEDS: D5 0.45 NS 1,000 ML IV SCH (19:00)
[2022-07-18] MEDS ORDERED: D5 0.45 NS 1,000 ML IV ONE (20:56)
[2022-07-18] MEDS: ATORVASTATIN 40 MG TAB PO SCH (21:00)
[2022-07-18] MEDS: DEXMEDETOMIDINE HCL 200 MCG in NA CHLORIDE 0.9% 98 ML IV SCH (22:02)
[2022-07-19] MEDS: INSULIN -REGULAR HUMAN 50 UNIT/0.5 ML ML SQ SCH ×4 (00:20→17:46)
[2022-07-19] MEDS: SUCCINYLCHOLINE 20 MG/ML (10 ML) IV SCH (00:45)
[2022-07-19] MEDS: DEXMEDETOMIDINE HCL 200 MCG in NA CHLORIDE 0.9% 98 ML IV SCH ×3 (00:49→06:08)
[2022-07-19 01:12] LABS: Arterial Blood Carboxyhemoglob 0.4 % (0-1.5); Blood Gas Oxyhemoglobin 92.7 % (94-97); Blood O2 Saturation 94.4 % (92-98.5)
--- NOTE | 2022-07-19 02:16 | P.PN ---
Date of Service: 07/19/22 JEFFREY JACKY was called overhead, Nurses report that patient after being transferred over to ICU bed and hooked up to monitor he was in V. tach and found to be pulseless. CPR was initiated immediately, upon my arrival rhythm check was performed patient was then SVT with a rate of 200, second cardioversion was [id number] J x 1, patient returned to sinus tachycardia with a rate of 100 with 2+ palpable pulse present. EKG, ABG, CXR, BGL obtained. Discussed case with sister who is aware of his current condition. Patient remains full code. Continue with ICU level care.
[2022-07-19] MEDS: LORazepam 2 MG/ML VIAL IV PRN ×3 (02:50→15:27)
[2022-07-19 05:10] LABS: Absolute Lymphocytes (CBC) 0.2 K/uL (0.7-4.9); Hematocrit 37.1 % (39.6-49.0); Lymphocytes % 3.3 % (15.3-44.8); MCV 95.7 fL (80-100); MPV 9.3 fL (7.6-11.3); RBC Red Blood Cell Count 3.88 M/uL (4.33-5.43)
[2022-07-19 05:30] LABS: Albumin 1.6 g/dL (3.4-5.0); Bilirubin Total 0.6 mg/dL (0.2-1.0); Magnesium 2.6 mg/dL (1.8-2.4); Phosphorus 3.2 mg/dL (2.5-4.9); Potassium 4.2 mmol/L (3.5-5.1); Protein, Total 5.6 g/dL (6.4-8.2); Uric Acid 5.9 mg/dL (3.5-7.2)
[2022-07-19] MEDS: D5 0.45 NS 1,000 ML IV SCH ×2 (06:09→21:44)
--- NOTE | 2022-07-19 06:20 | P.PN ---
Date of Service: 07/19/22 Subjective: intermittent SVT cardiac arrest overnight, after runs of SVT and eventual Vtach s/p chest compressions and electrical cardioversion x2 ROS: unable to be obtained secondary to sedation/mech vent Physical exam GEN: intubated/sedated HEENT: Normal conjunctiva, sclera anicteric CV: Regular rate and rhythm, no edema Pulm: on mech vent, bibasilar rales ABD: Soft, nontender, nondistended Neuro: intubated, sedated, moves all extremities Problem List acute hypoxemic respiratory failure secondary to pneumonia Septic shock secondary to pneumonia -COVID-19 vs bacterial HIV, chronic NSTEMI Rhabdomyolysis Thrombocytopenia SVT SOBIA IDDM2 Blood cultures: No growth. Urine culture: No growth. Repeat CT chest shows bilateral groundglass opacity and moderate left pleural effusion. COVID pneumonia versus bacterial pneumonia Continue IV steroid, zinc, vitamin C and vitamin D. CRP is markedly elevated. Pulmonary evaluated patient-recommended Precedex drip and weaning trials ID consulted - started remdesivir. Abx changed to azithromycin and meropenem Nephrology consulted for SOBIA. Renal function is improving with IV hydration. Avoid NSAIDs per nephrology. Continue D5 1/2NS. Monitor fingerstick glucose. hypernatremia start tube feeds, laboratory secretary consulted, free water flushes 07/19 initially stopped DVT prophylaxis given worsening thrombocytopenia, but now improved, high risk for VTE; restart lovenox prophylaxis 07/19, monitor platelets Status post 10% dextrose for hypoglycemia. Noted hepatic steatosis and hypoalbuminemia. Seen by cardiology for SVT. Echocardiogram shows global hypokinesia with EF of 42% vtach / code blue overnight 07/18-07/19 monitor for now, consider amio if develops tachyarrhythmias again - per cardiology code blue / cardiac arrest possibly from alcohol withdrawal unknown if patient has ETOH dependence, but will continue to monitor /treat as such for now; will discuss further with family Monitoring BMP and optimize electrolytes. Prognosis guarded. Code: full Dispo: continue ICU level of care Time Spent Managing Pts Care (In Minutes): 35
[2022-07-19] MEDS: FLUCONAZOLE 100 MG TAB PO SCH (08:04)
[2022-07-19] MEDS: METOPROLOL TAR 25 MG TAB PO SCH ×2 (08:04→21:44)
[2022-07-19] MEDS: AZITHROMYCIN IV 500 MG in NA CHLORIDE 0.9% 250 ML IVPB SCH (08:05)
[2022-07-19] MEDS: ASPIRIN EC 81 MG TAB PO SCH (08:05)
[2022-07-19] MEDS: Meropenem 500 MG in NA CHLORIDE 0.9% 100 ML IV SCH ×2 (08:05→21:45)
[2022-07-19] MEDS: DEXMEDETOMIDINE HCL 1,000 MCG in NA CHLORIDE 0.9% 490 ML IV SCH ×2 (08:46→19:30)
[2022-07-19] MEDS: HYDROMORPHONE HCL 2 MG/ML inj IV PRN ×2 (09:34→17:17)
[2022-07-19] MEDS: REMDESIVIR (EUA) 100 MG in NA CHLORIDE 0.9% 250 ML IV SCH (10:52)
--- NOTE | 2022-07-19 10:57 | RAD REPORT ---
EXAM DESCRIPTION: RAD - Chest Single View - 07/19/2022 10:32 am CLINICAL HISTORY: right PICC line insertion COMPARISON: Chest Single View dated 07/19/2022; Chest Single View dated 07/17/2022; Chest Single View dated 07/14/2022; Chest Single View dated 05/18/2022 FINDINGS: Portable chest was obtained following placement of a right upper extremity PICC line. The catheter tip projects over the SVC.
[2022-07-19] MEDS ORDERED: VITAL HP 1,000 ML BOT RTH SCH (11:00)
[2022-07-19] MEDS: ENOXAPARIN 40 MG/0.4 ML SQ SCH (12:37)
--- NOTE | 2022-07-19 13:00 | P.PN ---
Subjective Date of Service: 07/19/22 Chief Complaint: Respiratory failure status postcardiac arrest Patient was transferred from the emergency room he developed V. fib and had to be cardioverted he is currently stable little tachypneic on a ventilator Review of Systems is unable to be obtained Physical Examination - Vital Signs Temperature: 98.3 F Blood Pressure: 148/78 Pulse: 66 Respirations: 24 Pulse Ox (%): 97 - Physical Exam General: Unresponsive HEENT: Atraumatic Neck: Supple Respiratory: Clear to auscultation bilaterally, Diminished Cardiovascular: No edema, Regular rate/rhythm Gastrointestinal: Normal bowel sounds, Soft and benign Assessment And Plan - Current Problems (Diagnosis) (1) Respiratory failure Current Visit: Yes Status: Acute Plan: Patient is patient is currently on a ventilator oxygen requirement is less than 50% continues to remain agitated tachypneic patient is now hypernatremic renal function is improved labs reviewed cultures are so far negative we will start patient on tube feeds as per dietitian start water flushes advance endotracheal tube by 1.5 cm continue with dexmedetomidine use Ativan may be all related to alcohol abuse is also HIV positive including COVID positive start on IV thiamine trial of gabapentin twice daily possible alcohol withdrawal Qualifiers: Chronicity: acute on chronic
[2022-07-19] MEDS: THIAMINE 200 MG/2 ML INJ IVP SCH ×2 (13:51→21:45)
[2022-07-19] MEDS: GABAPENTIN 300 MG CAP PO SCH ×2 (13:51→21:44)
--- NOTE | 2022-07-19 16:12 | RAD REPORT ---
EXAM DESCRIPTION: Desiree Single View07/19/2022 3:48 pm CLINICAL HISTORY: Device placement endotracheal tube placement IMPRESSION: An endotracheal tube has been inserted with its tip at the level of the top of the aorti c arch
--- NOTE | 2022-07-19 18:00 | RAD REPORT ---
EXAM DESCRIPTION: Chest Single View CLINICAL HISTORY: 47 years Male ET TUBE TECHNIQUE: One view of the chest is compared to the prior dated 07/17/2022. FINDINGS: Endotracheal tube again seen, terminating approximately 6.7 cm above the solis. Nasogastr ic tube terminates beyond the proximal stomach. Median sternotomy wires and external pacing pads again noted. The visualized lungs are clear without focal consolidation, effusion, or pneumothorax. The cardiomedi astinal silhouette and central pulmonary vasculature are normal. No acute osseous abnormalities. IMPRESSION: Endotracheal tube terminates approximately 6.7 cm above the solis. Consider advancement by 2-3 cm. No acute findings in the chest. Electronically signed by: Doris Gant MD 07/19/2022 12:50 AM TEST DEVELOPER Due to temporary technical issues with the PACS/Fluency reporting system, reports are being signed by the in house radiologists without review as a courtesy to insure prompt reporting. The interpreting radiologist is fully responsible for the content of the report.
--- NOTE | 2022-07-19 18:43 | PN ---
Subjective: Patient lying in bed. No new acute event. Continue to stay on ventilator in ICU. As p er staff, patient overnight no new challenges. Objective: Vital Signs: Temperature 98, pulse 73, respiration 27, blood pressure 161/75. Lungs: Basal crackles. Heart: S1, S2. Regular. Abdomen: Soft, nontender. Bowel sounds present. Extremities: No edema. Laboratory Data: WBC 5.1, hemoglobin 12.6, platelets 168. BUN of 54, creatinine 1.2. Albumin level is 1.6. Current Medications: Include Zithromax, meropenem, and remdesivir. Assessment And Plan: Respiratory failure, status post ventricular fibrillation and intubation. Holly ent with COVID infection and history of HIV of 20 years, currently on remdesivir since yesterday day 2. Patient also on Zithromax and meropenem and sinus rhythm. We will continue to monitor any signs of ventricular tachycardia. We will discontinue Zithromax. Thrombocytopenia, improving. Septic carina ck secondary to pneumonia, bacteria versus COVID-19, rhabdomyolysis, insulin-dependent diabetes melli tus. We will follow patient closely. Monitor for signs of infection with WBC and fever trends. NF/MODL Voice ID: [id number] Report ID: [id number]
[2022-07-19 18:51] LABS: Specific Gravity 1.027 (1.005-1.030); Urine Bacteria <20 /HPF (<20); Urine Bilirubin NEGATIVE (Negative); Urine Blood 3+ (Negative); Urine Clarity Clear (Clear); Urine Color Light-Yellow (Yellow); Urine Glucose 4+ (Over) (Negative); Urine Mucus Slight /HPF (None Seen); Urine Protein 1+ (Negative); Urine RBC <5 /HPF (None Seen); Urine Urobilinogen Normal (Normal); Urine pH 5.5 (5.0-7.0)
[2022-07-19 19:10] LABS: UR MICROALBUMIN 8.5 mg/dL (< 1.9); UR PROTEIN 76.7 mg/dL (<11.9); Urine Protein/Creatinine Ratio 1.48 ratio (<0.15)
[2022-07-19] MEDS: ATORVASTATIN 40 MG TAB PO SCH (21:44)
--- NOTE | 2022-07-19 22:59 | P.PN ---
Date of Service: 07/19/22 Vital Signs Temp Pulse Resp BP Pulse Ox 97.7 F 85 25 H 149/75 H 96 07/19/22 20:00 07/19/22 21:44 07/19/22 20:00 07/19/22 21:44 07/19/22 20:00 Medications Acetaminophen (Acetaminophen 650mg/Rect Supp) 650 mg RI Q4H PRN PRN Reason: TEMP > 100.4' F Last Admin: 07/18/22 22:20 Dose: 650 mg Albuterol Sulfate (Albuterol 2.5 Mg/3 Ml Neb [place]) 2.5 mg NEB [id number] PRN PRN Reason: SHORTNESS OF BREATH Aspirin (Aspirin Ec 81 Mg Tab) 81 mg PO DAILY [facility] Last Admin: 07/19/22 08:05 Dose: 81 mg Atorvastatin Calcium (Atorvastatin 40 Mg Tab) 40 mg PO BEDTIME [facility] Last Admin: 07/19/22 21:44 Dose: 40 mg Dextrose (D10w 250 Ml Bag) 125 ml IV PRN PRN PRN Reason: HYPOGLYCEMIA Last Admin: 07/16/22 00:43 Dose: 125 ml Enoxaparin Sodium (Enoxaparin 40 Mg/0.4 Ml) 40 mg SQ DAILY [facility] Last Admin: 07/19/22 12:37 Dose: 40 mg Fluconazole (Fluconazole 100 Mg Tab) 200 mg PO DAILY [facility] Last Admin: 07/19/22 08:04 Dose: 200 mg Gabapentin (Gabapentin 300 Mg Cap) 300 mg PO BID [facility] Last Admin: 07/19/22 21:44 Dose: 300 mg Glucagon (Glucagon 1 Mg/Vial) 1 mg IM 1X PRN PRN Reason: HYPOGLYCEMIA Hydromorphone HCl (Hydromorphone Hcl 2 Mg/Ml Inj) 2 mg IV Q4HP PRN PRN Reason: Pain scale 8-10 (Severe) Last Admin: 07/19/22 17:17 Dose: 2 mg Dextrose (D10w 500 Ml Ivpb) 500 mls @ 0 mls/hr IV .Q0M [facility] Last Admin: 07/15/22 17:35 Dose: 500 mls Dextrose (Dextrose 10% Water Iv Soln.) 250 mls @ 0 mls/hr IV .Q0M [facility] Meropenem 500 mg/ Sodium (Chloride) 100 mls @ 200 mls/hr IV Q12HR [facility] Last Admin: 07/19/22 21:45 Dose: 100 mls REMDESIVIR (EUA) 100 mg/ (Sodium Chloride) 250 mls @ 500 mls/hr IV DAILY [facility] Stop: 07/22/22 09:29 Last Admin: 07/19/22 10:52 Dose: 250 mls Dextrose/Sodium Chloride (Dextrose 5% O.45% Saline) 1,000 mls @ 100 mls/hr IV .Q10H [facility] Last Admin: 07/19/22 21:44 Dose: 1,000 mls Dexmedetomidine HCl 1,000 mcg/ (Sodium Chloride) 500 mls @ 9.5 mls/hr IV TITR [facility]; Protocol Last Admin: 07/19/22 19:30 Dose: 1.4 mcg/kg/hr, 66.5 mls/hr Insulin Human Regular (Insulin -Regular Human 50 Unit/0.5 Ml Ml) 0 unit SQ Q6HR [facility]; Protocol Last Admin: 07/19/22 17:46 Dose: 4 unit Lorazepam (Lorazepam 2 Mg/Ml Vial) 2 mg IV Q2H PRN PRN Reason: SEDATION Last Admin: 07/19/22 15:27 Dose: 2 mg Metoprolol Tartrate (Metoprolol Tar 25 Mg Tab) 25 mg PO BID [facility] Last Admin: 07/19/22 21:44 Dose: 25 mg Nutritional Formula (Vital Hp 1,000 Ml Bot) 0 ml RTH CONT [facility] Ondansetron HCl (Ondansetron 4 Mg/2 Ml Vial) 4 mg IV Q6HP PRN PRN Reason: NAUSEA / VOMITING Last Admin: 07/15/22 10:30 Dose: 4 mg Sodium Chloride (Flush Normal Saline 10 Ml) 10 ml IV BID [facility] Last Admin: 07/19/22 21:45 Dose: 10 ml Sterile Water (Water For Inj,Sterile 10 Ml) 1.2 ml IM UD PRN PRN Reason: DILUTION OF MED Thiamine HCl (Thiamine 200 Mg/2 Ml Inj) 200 mg IVP BID [facility] Last Admin: 07/19/22 21:45 Dose: 200 mg Microbiology Results 07/14/22 11:40 Clean Catch Urine [place] Count - Final No growth. 07/14/22 11:40 Clean Catch Urine - Final No growth. 07/14/22 22:54 Blood - Blood Aerobic Blood Culture - Preliminary No growth in 24 hours. 07/14/22 22:54 Blood - Blood Anaerobic Blood Culture - Preliminary No growth in 24 hours. 07/14/22 22:35 Blood - Blood Aerobic Blood Culture - Preliminary No growth in 24 hours. 07/14/22 22:35 Blood - Blood Anaerobic Blood Culture - Preliminary No growth in 24 hours. Assessment/ Plan: Nephrology Limited IH/ ROS due to intubation/ AMS Episodic agitation No acute events overnight Vitals, medications, blood work and imaging reviewed in the chart. NAD. NCAT. MMM. Neck supple. CTA. RRR. Abd ND. No C/C/E. No rash. Responsive. No speech. LEFT VENTRICULAR WALL MOTION: MODERATE GLOBAL HYPOKINESIS. DOPPLER/COLOR FLOW: NORMAL. COMMENTS: MODERATE GLOBAL HYPOKINESIS. EJECTION FRACTION 42%. LEFT VENTRICULAR HYPERTROPHY SOBIA likely due to hypovolemia possibly complicated by ATN CKD with proteinuria -No NSAIDs -Continue IVF D51/2NS Rhabdomyolysis, resolving -Continue IVF HTN with CKD/ CHF Hypotension, resolved -Monitor BP Systolic CHF, chronic LVH -Daily weight DM II with hyperglycemia & CKD -RISS q6h Severe malnutrition Hypoalbuminemia NPO and acute decreased functional ability -Continue tube feedings Anemia in chronic illness Thrombocytopenia -Monitor CBC COVID-19 PNA -Continue Dexamethasone -Continue abx Toxic metabolic encephalopathy -Continue supportive care Greater than 30min patient care
[2022-07-19] MEDS ORDERED: NACHLORIDE 0.45% 1,000 ML IV SCH (23:45)
[2022-07-20] MEDS: LORazepam 2 MG/ML VIAL IV PRN ×4 (00:46→22:36)
[2022-07-20] MEDS: HYDROMORPHONE HCL 2 MG/ML inj IV PRN ×3 (02:25→20:40)
[2022-07-20] MEDS: DEXMEDETOMIDINE HCL 1,000 MCG in NA CHLORIDE 0.9% 490 ML IV SCH ×3 (03:09→20:50)
[2022-07-20 05:42] LABS: Absolute Lymphocytes (CBC) 0.4 K/uL (0.7-4.9); Hematocrit 35.9 % (39.6-49.0); Lymphocytes % 11.2 % (15.3-44.8); MCV 96.9 fL (80-100); MPV 8.8 fL (7.6-11.3); RBC Red Blood Cell Count 3.71 M/uL (4.33-5.43)
[2022-07-20 05:59] LABS: Albumin 1.4 g/dL (3.4-5.0); Bilirubin Total 0.7 mg/dL (0.2-1.0)
[2022-07-20] MEDS: INSULIN -REGULAR HUMAN 50 UNIT/0.5 ML ML SQ SCH ×4 (06:00→18:11)
--- NOTE | 2022-07-20 06:06 | P.PN ---
Date of Service: 07/20/22 Subjective: no acute events overnight remains intubated/sedated, on precedex drip 6 beats of vtach overnight ROS: unable to be obtained secondary to sedation/mech vent Physical exam GEN: intubated/sedated HEENT: Normal conjunctiva, sclera anicteric CV: Regular rate and rhythm, no edema Pulm: on mech vent, clear bilaterally ABD: Soft, nontender, nondistended Neuro: intubated, sedated, moves all extremities Problem List acute hypoxemic respiratory failure secondary to pneumonia Septic shock secondary to pneumonia -COVID-19 vs bacterial HIV, chronic NSTEMI Rhabdomyolysis Thrombocytopenia SVT SOBIA IDDM2 Blood cultures: No growth. Urine culture: No growth. Repeat CT chest shows bilateral groundglass opacity and moderate left pleural effusion. COVID pneumonia versus bacterial pneumonia Continue IV steroid, zinc, vitamin C and vitamin D. CRP is markedly elevated, improving Procal improving Pulmonary evaluated patient-recommended Precedex drip and weaning trials ID consulted - started remdesivir. Abx changed to azithromycin and meropenem Nephrology consulted for SOBIA. Hypernatremia Renal function is improving with IV hydration. Avoid NSAIDs per nephrology. started tube feeds 07/19, capacity planning analyst consulted, free water flushes 07/19 initially stopped DVT prophylaxis given worsening thrombocytopenia, but now improved, high risk for VTE; restart lovenox prophylaxis 07/19, monitor platelets Status post 10% dextrose for hypoglycemia. No w Noted hepatic steatosis and hypoalbuminemia. Seen by cardiology for SVT. Echocardiogram shows global hypokinesia with EF of 42% vtach / code blue overnight 07/18-07/19 monitor for now, consider amio if develops tachyarrhythmias again - per cardiology code blue / cardiac arrest possibly from alcohol withdrawal family report they are not aware of ETOH dependence/use Monitoring BMP and optimize electrolytes. Prognosis guarded. Code: full Dispo: continue ICU level of care Time Spent Managing Pts Care (In Minutes): 35
[2022-07-20] MEDS ORDERED: D5W 1,000 ML IV SCH (07:15)
--- NOTE | 2022-07-20 08:03 | RAD REPORT ---
EXAM DESCRIPTION: [place] Single View07/20/2022 6:25 am CLINICAL HISTORY: Mechanical ventilation COMPARISON: July 19, 2022 FINDINGS: Endotracheal and nasogastric tubes in place. Mild bilateral pulmonary opacities and left pleural effusion without significant change. Heart remains enlarged. Postsurgical changes involve chest IMPRESSION: No significant change since the prior examination
[2022-07-20] MEDS: ENOXAPARIN 40 MG/0.4 ML SQ SCH (08:32)
[2022-07-20] MEDS: THIAMINE 200 MG/2 ML INJ IVP SCH ×2 (08:32→20:55)
[2022-07-20] MEDS: GABAPENTIN 300 MG CAP PO SCH ×2 (08:33→20:54)
[2022-07-20] MEDS: FLUCONAZOLE 100 MG TAB PO SCH (08:33)
[2022-07-20] MEDS: REMDESIVIR (EUA) 100 MG in NA CHLORIDE 0.9% 250 ML IV SCH (08:33)
[2022-07-20] MEDS: METOPROLOL TAR 25 MG TAB PO SCH ×2 (08:33→20:53)
[2022-07-20] MEDS: ASPIRIN EC 81 MG TAB PO SCH (08:33)
[2022-07-20] MEDS: Meropenem 500 MG in NA CHLORIDE 0.9% 100 ML IV SCH ×2 (08:36→20:54)
--- NOTE | 2022-07-20 12:10 | P.PN ---
Subjective Date of Service: 07/20/22 Chief Complaint: Respiratory failure status postcardiac arrest No change in patient's condition is still on a ventilator unresponsive currently hyponatremic congestive heart failure global hypokinesis may have been under lying alcohol component added on D5 water normal sinus rhythm Review of Systems is unable to be obtained Physical Examination - Vital Signs Temperature: 98.0 F Blood Pressure: 131/70 Pulse: 80 Respirations: 28 Pulse Ox (%): 94 - Physical Exam General: Unresponsive Respiratory: Clear to auscultation bilaterally, Friction rub Cardiovascular: Regular rate/rhythm - Studies Microbiology Data (last 24 hrs): 07/14/22 22:54 Blood - Blood Aerobic Blood Culture - Final No growth in 5 days. 07/14/22 22:54 Blood - Blood Anaerobic Blood Culture - Final No growth in 5 days. 07/14/22 22:35 Blood - Blood Aerobic Blood Culture - Final No growth in 5 days. 07/14/22 22:35 Blood - Blood Anaerobic Blood Culture - Final No growth in 5 days. Assessment And Plan - Current Problems (Diagnosis) (1) Respiratory failure Current Visit: Yes Status: Acute Plan: Patient admitted with respiratory failure currently stable hyponatremic started on D5 water cultures all negative oxygen requirements less than 50% chest x-ray reviewed mild cardiomegaly possible left-sided pleural effusion endotracheal tube satisfactory white count mildly neutropenic no change in present treatment on tube feeds Qualifiers: Chronicity: acute on chronic
[2022-07-20] MEDS: D5W 1,000 ML IV SCH (12:13)
[2022-07-20 15:10] LABS: Potassium 4.1 mmol/L (3.5-5.1)
--- NOTE | 2022-07-20 15:36 | P.PN ---
Nephrology: (S) Pt remains intubated, on TF, on free water flushes, on D5W IVF, has been hyperglycemic, no other acute events noted General: Intubated, sedated HEENT: Atraumatic, ET/OT Neck: Supple Respiratory: Non tachypnec, b/l vent BS, reduced at bases Cardiovascular: RRR mostly Gastrointestinal: Soft, ND, NT Musculoskeletal/extremities: No sig swelling of the LE, swelling of Rt arm, Rt UE PICC line Integumentary: No rashes Neurological: Sedated so further exam is deferred Urinary: Lozano catheter Laboratory Data (last 24 hrs) Reviewed in the EMR Conclusions/Impression: 1. Abnormal results of kidney function studies 2. Stage II SOBIA 3. Acute rhabdomyolysis 2nd to fall/immobilization +/- drugs (dolutegravir) 4. Hypotension 2nd to hypovolemia, medications/drugs +/- early sepsis, other 5. Hypovolemic hyponatremia 6. Hypokalemia 7. COVID-19 infection and possible PNA -Pt's labs reveal notable SOBIA in the setting of hypotension, intravascular volume depletion induced by the use of loop diuretic therapy, aldosterone antagonist and SGLT2i use, other. If Cr level quickly downwards trends it suppor ts a functional injury explained by the above but if Cr level fails to quickly improve and there are abnormal findings in urine, there may be some intrinsic injury and his HIV regimen including Tenofovir can be associated with SOBIA/[place], other. -Lozano being inserted in the ER, will send off urine studies and monitor UOP closely -Cont IVF hydration with isotonic IVF -Trend CPK levels -Hold offending medications -COVID-19, HIV management per primary team/ID -Dose all meds for reduced CrCl Thank you for this referral, Camron Delaney MD, [facility]
--- NOTE | 2022-07-20 16:06 | PN ---
Subjective: The patient lying in bed on ventilator in ICU. Currently afebrile, low-grade fevers of 99.6 as per staff. Objective: Vital Signs: Heart rate of 84, respiration 28, blood pressure 131/70. Lungs: Basal crackles. Heart: S1, S2. Regular. Abdomen: Soft. Bowel sounds present. Extremity: No edema. Laboratory Data: Shows WBC 3.5, hemoglobin 11.9, platelets are 182. Chemistry shows BUN of 44, crea tinine 1.1, glucose is 199. Albumin level is 1.4. Assessment And Plan: Status post cardioversion. The patient remained on ventilator support. Low-gr primo fevers, recommend to repeat blood cultures if fever spikes more than 100. HIV, currently treatme nt is on hold because of his acute condition. COVID-19 infection. The patient has been taken off Zi thromax because of SVT yesterday, currently on meropenem and Diflucan and Remdesivir day 3. Anemia, leukopenia, thrombocytopenia improving, severe protein-calorie malnourishment, diabetes mellitus. Co ntinue supportive care. Prognosis guarded. We will follow the patient as needed. NF/MODL Voice ID: [id number] Report ID: [id number]
[2022-07-21] MEDS: D5W 1,000 ML IV SCH ×3 (00:23→15:29)
[2022-07-21] MEDS: HYDROMORPHONE HCL 2 MG/ML inj IV PRN ×3 (04:11→16:25)
[2022-07-21] MEDS: VITAL HP 1,000 ML BOT RTH SCH (04:12)
--- NOTE | 2022-07-21 05:45 | EKG ---
Test Date: 2022-07-20 Test Time: 10:34:45 Hide Handler: BABAR MEASUREMENT RESULTS: Intervals: Rate: 76 SD: 148 QRSD: 100 QT: 416 QTc: 468 [place]: P: 56 SD: 148 QRS: 50 T: 1 INTERPRETIVE STATEMENTS: Normal sinus rhythm Anteroseptal infarct, age undetermined Abnormal ECG Compared to ECG 07/19/2022 02:50:43 No significant changes Electronically Signed On 07-21-22 05:44:36 COVERING MACHINE OPERATOR HELPER by Jace Bowles
--- NOTE | 2022-07-21 05:48 | EKG ---
Test Date: 2022-07-19 Test Time: 02:50:43 Turpentine Distiller: Michelle FANG MEASUREMENT RESULTS: Intervals: Rate: 81 MD: 140 QRSD: 102 QT: 396 QTc: 460 [place]: P: 71 MD: 140 QRS: 38 T: 80 INTERPRETIVE STATEMENTS: Normal sinus rhythm Anteroseptal infarct, age undetermined Abnormal ECG Compared to ECG 07/19/2022 02:39:51 No significant changes Electronically Signed On 07-21-22 05:45:02 ELECTRONIC ASSEMBLY by Jace Bowles
[2022-07-21] MEDS: INSULIN -REGULAR HUMAN 50 UNIT/0.5 ML ML SQ SCH ×4 (06:00→17:23)
[2022-07-21 06:39] LABS: Absolute Lymphocytes (CBC) 0.6 K/uL (0.7-4.9); Hematocrit 36.5 % (39.6-49.0); Lymphocytes % 14.4 % (15.3-44.8); MCV 98.2 fL (80-100); MPV 8.9 fL (7.6-11.3); RBC Red Blood Cell Count 3.72 M/uL (4.33-5.43)
--- NOTE | 2022-07-21 06:44 | P.PN ---
Date of Service: 07/21/22 Subjective: no acute events overnight, no significant change inflammatory markers improved no BM since admission ROS: unable to be obtained secondary to sedation/mech vent Physical exam GEN: intubated/sedated HEENT: Normal conjunctiva, sclera anicteric CV: Regular rate and rhythm, no edema Pulm: on mech vent, clear bilaterally ABD: Soft, nontender, nondistended Neuro: intubated, sedated, moves all extremities leija in place PICC in place Problem List acute hypoxemic respiratory failure secondary to pneumonia Septic shock secondary to pneumonia -COVID-19 vs bacterial HIV, chronic NSTEMI Rhabdomyolysis Thrombocytopenia SVT SOBIA IDDM2 Blood cultures: No growth. Urine culture: No growth. Repeat CT chest shows bilateral groundglass opacity and moderate left pleural effusion. COVID pneumonia versus bacterial pneumonia Continue IV steroid, zinc, vitamin C and vitamin D. CRP, procal improving Pulmonary evaluated patient-recommended Precedex drip and weaning trials ID consulted - started remdesivir. Abx changed to azithromycin and meropenem Nephrology consulted for SOBIA. Hypernatremia Renal function is improving with IV hydration. Avoid NSAIDs per nephrology. started tube feeds 07/19, blueprint maker consulted, free water flushes 07/19 initially stopped DVT prophylaxis given worsening thrombocytopenia, but now improved, high risk for VTE; restart lovenox prophylaxis 07/19, monitor platelets Noted hepatic steatosis and hypoalbuminemia. Seen by cardiology for SVT. Echocardiogram shows global hypokinesia with EF of 42% vtach / code blue overnight 07/18-07/19 monitor for now, consider amio if develops tachyarrhythmias again - per cardiology code blue / cardiac arrest possibly from alcohol withdrawal family report they are not aware of ETOH dependence/use CT head ordered, r/o stroke / anoxic brain injury Monitoring BMP and optimize electrolytes. Prognosis guarded. Code: full Dispo: continue ICU level of care sister Lion Briceno updated on 07/21 Time Spent Managing Pts Care (In Minutes): 35
[2022-07-21 06:53] LABS: Albumin 1.4 g/dL (3.4-5.0); Bilirubin Total 0.8 mg/dL (0.2-1.0); C-Reactive Protein 74.1 mg/L (<3.00); Magnesium 1.9 mg/dL (1.8-2.4); Potassium 4.4 mmol/L (3.5-5.1)
[2022-07-21] MEDS: DEXMEDETOMIDINE HCL 1,000 MCG in NA CHLORIDE 0.9% 490 ML IV SCH ×2 (07:55→17:57)
[2022-07-21] MEDS: REMDESIVIR (EUA) 100 MG in NA CHLORIDE 0.9% 250 ML IV SCH (08:43)
[2022-07-21] MEDS: FLUCONAZOLE 100 MG TAB PO SCH (08:44)
[2022-07-21] MEDS: GABAPENTIN 300 MG CAP PO SCH ×2 (08:44→20:26)
[2022-07-21] MEDS: ASPIRIN EC 81 MG TAB PO SCH (08:44)
[2022-07-21] MEDS: Meropenem 500 MG in NA CHLORIDE 0.9% 100 ML IV SCH (08:44)
[2022-07-21] MEDS: THIAMINE 200 MG/2 ML INJ IVP SCH ×2 (08:44→20:26)
[2022-07-21] MEDS: ENOXAPARIN 40 MG/0.4 ML SQ SCH (08:44)
[2022-07-21] MEDS: METOPROLOL TAR 25 MG TAB PO SCH ×2 (08:44→20:26)
[2022-07-21] MEDS ORDERED: Meropenem 500 MG in NA CHLORIDE 0.9% 100 ML IV ONE (11:00)
[2022-07-21] MEDS: LORazepam 2 MG/ML VIAL IV PRN (11:10)
[2022-07-21] MEDS: ACETAMINOPHEN 650MG/RECT SUPP PR PRN (11:15)
--- NOTE | 2022-07-21 11:31 | RAD REPORT ---
EXAM DESCRIPTION: RAD - Abdomen 1 View (KUB) - 07/21/2022 11:19 am CLINICAL HISTORY: r/o ileus, obstruction COMPARISON: No comparisons FINDINGS: NG tube is in place. Stomach is decompressed. Air and a small amount of stool are present scattered throughout nondilated colon down to the level of the rectum. No small bowel dilatation seen . No obstruction, free air or pneumatosis. No suspicious calcifications. No significant bony findings IMPRESSION: Nonspecific bowel gas pattern with no obstruction or ileus findings.
[2022-07-21] MEDS: SMZ./TMP. 800/160 MG TABLET PO SCH (12:29)
--- NOTE | 2022-07-21 13:36 | P.PN ---
Subjective Date of Service: 07/21/22 Chief Complaint: Respiratory failure status postcardiac arrest Patient is not doing well remains unresponsive rolls up his eyes when stimulated dynamically stable no further tachyarrhythmia Review of Systems is unable to be obtained Physical Examination - Vital Signs Temperature: 99.7 F Blood Pressure: 109/60 Pulse: 86 Respirations: 19 Pulse Ox (%): 92 - Physical Exam General: Comatose Respiratory: Expiratory wheezes Cardiovascular: No edema, Regular rate/rhythm Assessment And Plan - Current Problems (Diagnosis) (1) Respiratory failure Current Visit: Yes Status: Acute Plan: Respiratory failure patient is now developing him some fever, toes unresponsive holds his eyes upwards when stimulated patient continues to remain hyponatremic to be fluids and [place] flushes adjusted by nephrology CBC is stable patient is on Bactrim so far cultures are negative recommend repeat CT scan no history of alcohol abuse he is wheezing daily chest x-rays have been ordered oxygen requirements have increased prognosis poor Qualifiers: Chronicity: acute on chronic
[2022-07-21] MEDS ORDERED: IPRATROPIUM BROM 0.5MG/2.5ML ONE (13:58)
--- NOTE | 2022-07-21 14:07 | RAD REPORT ---
EXAM DESCRIPTION: RAD - Chest Single View - 07/21/2022 1:54 pm CLINICAL HISTORY: Respiratory failure Chest pain. COMPARISON: Abdomen 1 View (KUB) dated 07/21/2022; Chest Single View dated 07/20/2022; Chest Single Vi ew dated 07/19/2022; Chest Single View dated 07/19/2022 FINDINGS: Portable technique limits examination quality. Tip of the endotracheal tube is above the [place] at the level of the superior aortic arch. Enteric tu be descends into the upper abdomen. Moderate bilateral pulmonary opacities are seen, mildly progressi ve since the comparative study.The heart is mildly to moderately enlarged. Right-sided PICC line unch anged in position. IMPRESSION: Mild worsening in bilateral pulmonary opacities since comparative study.
[2022-07-21] MEDS: IPRATROPIUM BROM 0.5MG/2.5ML NEB SCH ×2 (14:28→20:03)
--- NOTE | 2022-07-21 16:56 | RAD REPORT ---
EXAM DESCRIPTION: CT - Head Brain Wo Cont - 07/21/2022 4:44 pm CLINICAL HISTORY: CVA Headache, drowsiness, CVA symptomology. COMPARISON: Head Brain Wo Cont dated 07/16/2022; Head Brain Wo Cont dated 11/16/2021 TECHNIQUE: All CT scans are performed using dose optimization technique as appropriate and may inclu de automated exposure control or mA/KV adjustment according to patient size. FINDINGS: No intracranial hemorrhage, hydrocephalus or extra-axial fluid collection.Mild generalized brain atrophy.No areas of brain edema or evidence of midline shift. Moderate multifocal paranasal sinus thickening is present. The calvarium is intact. IMPRESSION: No acute intracranial abnormality.
[2022-07-21] MEDS: Meropenem 1,000 MG in NA CHLORIDE 0.9% 100 ML IV SCH (17:05)
[2022-07-21] MEDS: ALBUTEROL 2.5 MG/3 ML NEB SOL NEB PRN (20:03)
[2022-07-22] MEDS: Meropenem 1,000 MG in NA CHLORIDE 0.9% 100 ML IV SCH ×3 (00:09→18:21)
--- NOTE | 2022-07-22 00:18 | P.PN ---
Date of Service: 07/21/22 Vital Signs Temp Pulse Resp BP Pulse Ox 98.5 F 62 26 H 134/63 97 07/21/22 20:00 07/22/22 00:10 07/22/22 00:10 07/22/22 00:10 07/22/22 00:10 Medications Acetaminophen (Acetaminophen 650mg/Rect Supp) 650 mg NM Q4H PRN PRN Reason: TEMP > 100.4' F Last Admin: 07/21/22 11:15 Dose: 650 mg Albuterol Sulfate (Albuterol 2.5 Mg/3 Ml Neb [place]) 2.5 mg NEB [id number] PRN PRN Reason: SHORTNESS OF BREATH Last Admin: 07/21/22 20:03 Dose: 2.5 mg Aspirin (Aspirin Ec 81 Mg Tab) 81 mg PO DAILY [facility] Last Admin: 07/21/22 08:44 Dose: 81 mg Dextrose (D10w 250 Ml Bag) 125 ml IV PRN PRN PRN Reason: HYPOGLYCEMIA Last Admin: 07/16/22 00:43 Dose: 125 ml Enoxaparin Sodium (Enoxaparin 40 Mg/0.4 Ml) 40 mg SQ DAILY [facility] Last Admin: 07/21/22 08:44 Dose: 40 mg Fluconazole (Fluconazole 100 Mg Tab) 400 mg PO DAILY [facility] Gabapentin (Gabapentin 300 Mg Cap) 300 mg PO BID [facility] Last Admin: 07/21/22 20:26 Dose: 300 mg Glucagon (Glucagon 1 Mg/Vial) 1 mg IM 1X PRN PRN Reason: HYPOGLYCEMIA Home Med (Home Med [Tivicay 50mg Tabs]) 1 ea FT DAILY [facility] Home Med (Home Med [Descovy 200-25mg-1 Tablet]) 1 ea FT DAILY [facility] Hydromorphone HCl (Hydromorphone Hcl 2 Mg/Ml Inj) 2 mg IV Q4HP PRN PRN Reason: Pain scale 8-10 (Severe) Last Admin: 07/21/22 16:25 Dose: 2 mg Dextrose (D10w 500 Ml Ivpb) 500 mls @ 0 mls/hr IV .Q0M [facility] Last Admin: 07/15/22 17:35 Dose: 500 mls Dextrose (Dextrose 10% Water Iv Soln.) 250 mls @ 0 mls/hr IV .Q0M [facility] REMDESIVIR (EUA) 100 mg/ (Sodium Chloride) 250 mls @ 500 mls/hr IV DAILY [facility] Stop: 07/22/22 09:29 Last Admin: 07/21/22 08:43 Dose: 250 mls Dexmedetomidine HCl 1,000 mcg/ (Sodium Chloride) 500 mls @ 9.5 mls/hr IV TITR [facility]; Protocol Last Admin: 07/21/22 17:57 Dose: 1.4 mcg/kg/hr, 66.5 mls/hr Meropenem 1,000 mg/ Sodium (Chloride) 100 mls @ 200 mls/hr IV Q8HR [facility] Last Admin: 07/22/22 00:09 Dose: 100 mls Dextrose/Water (Dextrose In Water (1-Liter)) 1,000 mls @ 100 mls/hr IV .Q10H [facility] Last Admin: 07/21/22 15:29 Dose: 1,000 mls Insulin Human Regular (Insulin -Regular Human 50 Unit/0.5 Ml Ml) 0 unit SQ Q6HR [facility]; Protocol Last Admin: 07/21/22 17:23 Dose: Not Given Ipratropium [place] (Ipratropium Brom 0.5mg/2.5ml) 0.5 mg NEB [id number] [facility] Last Admin: 07/21/22 20:03 Dose: 0.5 mg Lorazepam (Lorazepam 2 Mg/Ml Vial) 2 mg IV Q2H PRN PRN Reason: SEDATION Last Admin: 07/21/22 11:10 Dose: 2 mg Metoprolol Tartrate (Metoprolol Tar 25 Mg Tab) 25 mg PO BID [facility] Last Admin: 07/21/22 20:26 Dose: 25 mg Nutritional Formula (Vital Hp 1,000 Ml Bot) 0 ml RTH CONT [facility] Last Admin: 07/21/22 04:12 Dose: 1,000 ml Ondansetron HCl (Ondansetron 4 Mg/2 Ml Vial) 4 mg IV Q6HP PRN PRN Reason: NAUSEA / VOMITING Last Admin: 07/15/22 10:30 Dose: 4 mg Sodium Chloride (Flush Normal Saline 10 Ml) 10 ml IV BID [facility] Last Admin: 07/21/22 20:26 Dose: 10 ml Sterile Water (Water For Inj,Sterile 10 Ml) 1.2 ml IM UD PRN PRN Reason: DILUTION OF MED Thiamine HCl (Thiamine 200 Mg/2 Ml Inj) 200 mg IVP BID [facility] Last Admin: 07/21/22 20:26 Dose: 200 mg Trimethoprim/Sulfamethoxazole (Smz./Tmp. 800/160 Mg Tablet) 1 tab PO DAILY [facility] Last Admin: 07/21/22 12:29 Dose: 1 tab Microbiology Results 07/14/22 22:54 Blood - Blood Aerobic Blood Culture - Final No growth in 5 days. 07/14/22 22:54 Blood - Blood Anaerobic Blood Culture - Final No growth in 5 days. 07/14/22 22:35 Blood - Blood Aerobic Blood Culture - Final No growth in 5 days. 07/14/22 22:35 Blood - Blood Anaerobic Blood Culture - Final No growth in 5 days. 07/14/22 11:40 Clean Catch Urine [place] Count - Final No growth. 07/14/22 11:40 Clean Catch Urine - Final No growth. Assessment/ Plan: Nephrology Limited IH/ ROS due to intubation/ AMS Episodic agitation No acute events overnight Vitals, medications, blood work and imaging reviewed in the chart. NAD. NCAT. MMM. Neck supple. CTA. RRR. Abd ND. No C/C/E. No rash. Responsive. No speech. LEFT VENTRICULAR WALL MOTION: MODERATE GLOBAL HYPOKINESIS. DOPPLER/COLOR FLOW: NORMAL. COMMENTS: MODERATE GLOBAL HYPOKINESIS. EJECTION FRACTION 42%. LEFT VENTRICULAR HYPERTROPHY SOBIA likely due to hypovolemia possibly complicated by ATN CKD with proteinuria -No NSAIDs Hypernatremia -Increase IVF D5W -Continue free water flushes Rhabdomyolysis, resolving -Continue IVF HTN with CKD/ CHF Hypotension, resolved -Monitor BP Systolic CHF, chronic LVH -Daily weight DM II with hyperglycemia & CKD -RISS q6h Severe malnutrition Hypoalbuminemia NPO and acute decreased functional ability -Continue tube feedings Anemia in chronic illness Thrombocytopenia -Monitor CBC COVID-19 PNA -Continue Dexamethasone -Continue abx Toxic metabolic encephalopathy -Continue supportive care Greater than 30min patient care
[2022-07-22] MEDS: D5W 1,000 ML IV SCH ×2 (00:33→10:47)
[2022-07-22] MEDS: INSULIN -REGULAR HUMAN 50 UNIT/0.5 ML ML SQ SCH ×4 (00:34→18:00)
[2022-07-22] MEDS: LORazepam 2 MG/ML VIAL IV PRN ×2 (00:47→14:15)
[2022-07-22] MEDS: DEXMEDETOMIDINE HCL 1,000 MCG in NA CHLORIDE 0.9% 490 ML IV SCH ×3 (00:48→20:42)
[2022-07-22] MEDS: ALBUTEROL 2.5 MG/3 ML NEB SOL NEB PRN ×2 (01:20→20:18)
[2022-07-22] MEDS: IPRATROPIUM BROM 0.5MG/2.5ML NEB SCH ×4 (01:20→20:18)
[2022-07-22] MEDS: HYDROMORPHONE HCL 2 MG/ML inj IV PRN ×3 (04:15→18:59)
[2022-07-22] MEDS: ACETAMINOPHEN 650MG/RECT SUPP PR PRN ×2 (05:09→20:45)
[2022-07-22 05:46] LABS: Hematocrit 35.1 % (39.6-49.0); MPV 8.9 fL (7.6-11.3); RBC Red Blood Cell Count 3.58 M/uL (4.33-5.43)
[2022-07-22 05:57] LABS: Albumin 1.5 g/dL (3.4-5.0); Bilirubin Total 0.7 mg/dL (0.2-1.0); C-Reactive Protein 72.2 mg/L (<3.00); Magnesium 1.7 mg/dL (1.6-2.4); Phosphorus 2.9 mg/dL (2.5-4.9); Potassium 4.1 mmol/L (3.5-5.1)
--- NOTE | 2022-07-22 06:11 | P.PN ---
Date of Service: 07/22/22 Subjective: febrile overnight not following commands FiO2 increased ROS: unable to be obtained secondary to sedation/mech vent Physical exam GEN: intubated/sedated HEENT: sclera anicteric, pupils reactive CV: Regular rate and rhythm, trace b/l pedal edema Pulm: on mech vent, crackles at left base ABD: Soft, nontender, nondistended Neuro: intubated, sedated, moves all extremities leija in place PICC in place Problem List acute hypoxemic respiratory failure secondary to pneumonia Septic shock secondary to pneumonia -COVID-19 vs bacterial HIV, chronic NSTEMI Rhabdomyolysis Thrombocytopenia SVT SOBIA IDDM2 Blood cultures: No growth. Urine culture: No growth. Repeat CT chest shows bilateral groundglass opacity and moderate left pleural effusion. COVID pneumonia versus bacterial pneumonia Continue IV steroid, zinc, vitamin C and vitamin D. CRP, procal was improving Pulmonary consulted -recommended Precedex drip and weaning trials ID consulted - started remdesivir. Abx changed to azithromycin and meropenem 07/22 added vancomycin back on, febrile: 07/21-07/[address] chest/abd/pelvis to eval for source, re-culture, UA Nephrology consulted for SOBIA. Hypernatremia Renal function improved with IV hydration. Avoid NSAIDs adjusting fluids for hypernatremia, improved started tube feeds 07/19, plastic surgery specialist consulted, free water flushes 07/19 initially stopped DVT prophylaxis given worsening thrombocytopenia, but now improved, high risk for VTE; restart lovenox prophylaxis 07/19, monitor platelets no bleeding Noted hepatic steatosis and hypoalbuminemia. no BM since admission KUB 07/21: nonspecific Seen by cardiology for SVT. Echocardiogram shows global hypokinesia with EF of 42% vtach / code blue overnight 07/18-07/19 monitor for now, consider amio if develops tachyarrhythmias again - per ca rdiology code blue / cardiac arrest possibly from alcohol withdrawal family report they are not aware of ETOH dependence/use CT head (07/21): negative Monitoring BMP and optimize electrolytes. Prognosis guarded. Code: full Dispo: continue ICU level of care sister Lion Briceno updated on 07/22 Time Spent Managing Pts Care (In Minutes): 35
[2022-07-22] MEDS ORDERED: MAGNESIUM SULFATE 1 gm IVPB 1 GM/100 ML BAG IV ONE (06:25)
[2022-07-22] MEDS: VITAL HP 1,000 ML BOT RTH SCH (07:00)
[2022-07-22] MEDS ORDERED: VANCOMYCIN 2.5 GM in NA CHLORIDE 0.9% 500 ML IVPB ONE (07:00)
[2022-07-22 07:07] LABS: Arterial Blood Carboxyhemoglob 0.9 % (0-1.5); Blood Gas Oxyhemoglobin 89.5 % (94-97); Blood O2 Saturation 91.8 % (92-98.5)
[2022-07-22] MEDS ORDERED: VANCOMYCIN 2 GM in NA CHLORIDE 0.9% 500 ML IVPB ONE (07:30)
[2022-07-22 08:00] LABS: Specific Gravity 1.025 (1.005-1.030); Urine Bilirubin NEGATIVE (Negative); Urine Blood 2+ (Negative); Urine Clarity Clear (Clear); Urine Color Yellow (Yellow); Urine Glucose 4+ (Over) (Negative); Urine Mucus Slight /HPF (None Seen); Urine Protein TRACE (Negative); Urine RBC <5 /HPF (None Seen); Urine Urobilinogen 1+ (Normal)
[2022-07-22] MEDS: ASPIRIN EC 81 MG TAB PO SCH (08:13)
[2022-07-22] MEDS: GABAPENTIN 300 MG CAP PO SCH (08:13)
[2022-07-22] MEDS: THIAMINE 200 MG/2 ML INJ IVP SCH ×2 (08:14→20:38)
[2022-07-22] MEDS: METOPROLOL TAR 25 MG TAB PO SCH ×2 (08:14→20:38)
[2022-07-22] MEDS: ENOXAPARIN 40 MG/0.4 ML SQ SCH (08:14)
[2022-07-22] MEDS: DESCOVY FT SCH (08:16)
[2022-07-22] MEDS: TIVICAY 50 MG FT SCH (08:16)
[2022-07-22] MEDS: SMZ./TMP. 800/160 MG TABLET PO SCH (08:16)
[2022-07-22] MEDS: REMDESIVIR (EUA) 100 MG in NA CHLORIDE 0.9% 250 ML IV SCH (08:45)
[2022-07-22] MEDS ORDERED: VANCOMYCIN 1.25 GM in NA CHLORIDE 0.9% 250 ML IVPB SCH (09:00)
[2022-07-22] MEDS ORDERED: FLUCONAZOLE 100 MG TAB PO SCH (09:00)
--- NOTE | 2022-07-22 09:20 | RAD REPORT ---
EXAM DESCRIPTION: RAD - Chest Single View - 07/22/2022 6:54 am CLINICAL HISTORY: f/u opacities, febrile, intubated Chest pain. COMPARISON: Chest Single View dated 07/21/2022; Abdomen 1 View ([facility]) dated 07/21/2022; Chest Single Vi ew dated 07/20/2022; Chest Single View dated 07/19/2022 FINDINGS: Portable technique limits examination quality. Endotracheal intubation is noted with tip at the level of the superior aortic arch. Enteric tube desc ends into the upper abdomen. Bilateral pulmonary opacities are again seen, slightly progressive since comparative study. The heart is moderately enlarged. Sternotomy wires are present. Right-sided PICC line is stable in position. IMPRESSION: Slight worsening in lung aeration seen since yesterday's study.
--- NOTE | 2022-07-22 13:16 | P.PN ---
Subjective Date of Service: 07/22/22 Chief Complaint: Respiratory failure status postcardiac arrest No change in patient's condition he continues to remain unresponsive hemodynamically stable running a fever Review of Systems is unable to be obtained Physical Examination - Vital Signs Temperature: 99.3 F Blood Pressure: 107/60 Pulse: 75 Respirations: 27 Pulse Ox (%): 92 - Physical Exam General: Unresponsive, Comatose Respiratory: Clear to auscultation bilaterally, Diminished Cardiovascular: No edema, Normal S1 S2 Gastrointestinal: Normal bowel sounds, Soft and benign Assessment And Plan - Current Problems (Diagnosis) (1) Respiratory failure Current Visit: Yes Status: Acute Plan: Patient has respiratory failure and fever chills are all negative recommend CT of the chest and the abdomen and pelvis chest x-ray looks little worse may be developing ARDS increase PEEP he is on 65% FiO2 tolerating tube feeds on meropenem and vancomycin chemistries labs all reviewed white count is low CT of the head shows no acute changes Qualifiers: Chronicity: acute on chronic
--- NOTE | 2022-07-22 14:01 | P.PN ---
Nephrology: (S) Pt remains intubated, CXR findings noted, hemodynamically stable, hypernatremia improved General: Intubated, sedated HEENT: Atraumatic, ET/OT Neck: Supple Respiratory: Non tachypnec, b/l vent BS, reduced at bases Cardiovascular: RRR mostly Gastrointestinal: Soft, ND, NT Musculoskeletal/extremities: No sig swelling of the LE, swelling of Rt arm, Rt UE PICC line Integumentary: No rashes Neurological: Sedated so further exam is deferred Urinary: Lozano catheter Laboratory Data (last 24 hrs) Reviewed in the EMR A/P 1. SOBIA on admission largely resolved, Cr level has sig downward trended and normalized. 2. Hypertonic hypernatremia with water deficit earlier in the week calculated as > 4L not accounting for any urinary free water losses or other insensible losses. Na level improved, so will d/c D5W IVF and cont free water flushes 3. Acute hypoxic respiratory failure -pulm infiltrates persist, pt polyuric/auto -diuresing, cont supportive care, vent weaning per primary team
--- NOTE | 2022-07-22 15:30 | RAD REPORT ---
EXAM DESCRIPTION: CT - Chest Abdomen Pelvis W Cont - 07/22/2022 2:40 pm CLINICAL HISTORY: Persistent fever COMPARISON: Chest Single View dated 07/22/2022 TECHNIQUE: Following dynamic enhancement using 100 milliliters nonionic IV contrast, axial imaging o f the chest, abdomen and pelvis was performed. Biphasic technique was utilized through the abdomen. Oral contrast: None. All CT scans are performed using dose optimization technique as appropriate and may include automated exposure control or mA/KV adjustment according to patient size. FINDINGS: Endotracheal tube is in place. Tip is at the mid aortic arch level, good position. NG tube is in place. Tip is in the anterior stomach, good position. Right-sided PICC line is in place with t he tip mid SVC. Left lower lobe is densely consolidated sparing only a small portion of the superior segment. Air bro nchograms are present. Small amount of airspace opacification is present in the lingula of the left u pper lobe. Greater airspace opacities are present in each upper lobe. More mild to moderate airspace opacities are scattered in the right middle and right lower lobes. No cavitation. Underlying solid ma ss lesion not suspected. There is partial atelectasis in the posterior aspect of the right lower lobe . Small bilateral pleural effusions are present. No pneumothorax. No pleural based mass. No cardiomegaly or pericardial effusion. Dense for age coronary artery coronary artery calcifications are present. Mediastinal and hilar regions show no mass or abnormal lymphadenopathy. No chest wall m ass or axillary lymphadenopathy. No aorta or pulmonary arterial tree abnormality. The liver, spleen and pancreas show no suspicious findings. Well filled gallbladder shows questionabl e punctate stones or sludge layering in the dependent portion. No wall thickening or edema. No biliar y tree abnormality. Renal function is symmetric. No hydronephrosis or mass. There is some heterogeneity of the renal pare nchymal enhancement pattern due to the patient's arms at his side rather than above his head. Likelih ood of pyelonephritis is felt to be low. No adrenal abnormalities. Urinary bladder is contracted arou nd a Lozano catheter. Air within the bladder lumen is presumed to be result of the catheterization. No dilated bowel loops or focal bowel wall thickening. No acute GI findings seen. Small amount of ascites present. No free air or pneumatosis. No abscess. Disc and bone degenerative changes are present without acute finding. Arterial tree calcifications ar e present. No significant vascular findings. IMPRESSION: Near complete consolidation of the left lower lobe sparing only a small portion of the s uperior segment. No underlying mass or cavitation. This is most likely pneumonia but could be COVID o r bacterial pneumonia. Patient also has patchy pneumonia findings in the lingula left upper lobe, right middle lobe and righ t lower lobe the more typical for the pneumonia findings seen in the COVID-19 pandemic. Small amount of ascites seen in the peritoneal cavity. No acute or emergent CT abdomen or pelvis find ings. ET tube, NG tube and PICC line are well-positioned.
--- NOTE | 2022-07-22 16:36 | PN ---
Subjective: Patient lying in bed, on vent, unresponsive. Objective: Vital Signs: Temperature 99.8, pulse 74, respirations 18, blood pressure 103/66. Lungs: Basal crackles. Heart: S1, S2. Regular. Abdomen: Soft, nontender. Bowel sounds present. Extremity: No edema. Laboratory Data: WBC 3.7, hemoglobin 11.6, platelets 110. Chemistry shows BUN 31, creatinine 0.8. Micro data; blood cultures are pending. Chest x-ray done earlier today shows slight worsening of fantasma g aeration since yesterday. Assessment And Plan: Respiratory failure, sepsis, COVID-19 infection. History of HIV. Recommend to get CD4 count and viral load. Pancytopenia. Rhabdomyolysis. Diabetes mellitus. Continue supporti ve care. Consider stopping Bactrim. We will follow the patient as needed. NF/MODL Voice ID: [id number] Report ID: [id number]
[2022-07-22] MEDS ORDERED: VANCOMYCIN 1.75 GM in NA CHLORIDE 0.9% 500 ML IVPB SCH (19:00)
[2022-07-22] MEDS: VANCOMYCIN 1.5 GM in NA CHLORIDE 0.9% 500 ML IVPB SCH (20:38)
[2022-07-23] MEDS: Meropenem 1,000 MG in NA CHLORIDE 0.9% 100 ML IV SCH ×3 (00:06→16:38)
[2022-07-23] MEDS: INSULIN -REGULAR HUMAN 50 UNIT/0.5 ML ML SQ SCH ×4 (00:14→17:10)
[2022-07-23] MEDS: LORazepam 2 MG/ML VIAL IV PRN ×3 (00:36→18:45)
[2022-07-23] MEDS: ACETAMINOPHEN 650MG/RECT SUPP PR PRN (00:37)
[2022-07-23] MEDS: ALBUTEROL 2.5 MG/3 ML NEB SOL NEB PRN ×2 (00:53→20:15)
[2022-07-23] MEDS: IPRATROPIUM BROM 0.5MG/2.5ML NEB SCH ×4 (00:53→20:15)
[2022-07-23] MEDS: HYDROMORPHONE HCL 2 MG/ML inj IV PRN ×2 (04:10→20:49)
[2022-07-23] MEDS: DEXMEDETOMIDINE HCL 1,000 MCG in NA CHLORIDE 0.9% 490 ML IV SCH ×2 (04:52→16:17)
[2022-07-23 06:02] LABS: Blood Gas Oxyhemoglobin 94.5 % (94-97); Blood O2 Saturation 96.6 % (92-98.5)
[2022-07-23 06:03] LABS: Arterial Blood Carboxyhemoglob 0.6 % (0-1.5)
[2022-07-23 06:16] LABS: Albumin 1.4 g/dL (3.4-5.0); Bilirubin Total 0.8 mg/dL (0.2-1.0); C-Reactive Protein 88.6 mg/L (<3.00); Magnesium 1.9 mg/dL (1.6-2.4); Potassium 4.1 mmol/L (3.5-5.1)
[2022-07-23 06:20] LABS: Hematocrit 34.6 % (39.6-49.0); MCV 97.2 fL (80-100); MPV 10.5 fL (7.6-11.3); RBC Red Blood Cell Count 3.56 M/uL (4.33-5.43)
--- NOTE | 2022-07-23 06:31 | P.PN ---
Date of Service: 07/23/22 Subjective: no acute events overnight still no BM opens eyes to verbal stimuli, follows basic commands ROS: unable to be obtained secondary to sedation/mech vent Physical exam GEN: intubated/, opens eyes HEENT: sclera anicteric, pupils reactive CV: Regular rate and rhythm, trace b/l pedal edema Pulm: on mech vent, crackles at left base ABD: Soft, nondistended Neuro: intubated, follows basic commands (blinks eyes, squeezed hand ) very weak leija in place PICC in place Problem List acute hypoxemic respiratory failure secondary to pneumonia Septic shock secondary to pneumonia -COVID-19 vs bacterial HIV, chronic NSTEMI Rhabdomyolysis Thrombocytopenia SVT SOBIA IDDM2 Blood cultures: No growth. Urine culture: No growth. CT chest shows bilateral groundglass opacity and moderate left pleural effusion. covering for COVID pneumonia vs bacterial pneumonia Pulmonary consulted -recommended Precedex drip and weaning trials ID consulted - started remdesivir. Abx changed - switched to meropenem 07/22 added vancomycin back on, febrile: 07/21-07/22; now afebrile but remains with Temps in 99s repeat CT - worsening pneumonia Nephrology consulted for SOBIA. Hypernatremia - hypertonic Renal function improved with IV hydration. Avoid NSAIDs adjusting fluids for hypernatremia, improved started tube feeds 07/19, early head start teacher consulted, free water flushes 07/19 initially stopped DVT prophylaxis given worsening thrombocytopenia, but now improved, high risk for VTE; restarted lovenox prophylaxis 07/19, monitor platelets noted some dark blood mixed with stool in ostomy, monitor closely now on lovenox prophylaxis Noted hepatic steatosis and hypoalbuminemia. Seen by cardiology for SVT. Echocardiogram shows global hypokinesia with EF of 42% vtach / code blue overnight 07/18-07/19 monitor for now, consider amio if develops tachyarrhythmias again - per cardiology code blue / cardiac arrest possibly from alcohol withdrawal family report they are not aware of ETOH dependence/use CT head (07/21): negative Monitoring BMP and optimize electrolytes. Prognosis guarded. seems to be improved - 07/23 - able to follow some basic commands Code: full Dispo: continue ICU level of care Time Spent Managing Pts Care (In Minutes): 35
--- NOTE | 2022-07-23 07:09 | RAD REPORT ---
EXAM DESCRIPTION: RAD - Chest Single View - 07/23/2022 6:57 am CLINICAL HISTORY: vented COMPARISON: Chest Single View dated 07/22/2022; Chest Single View dated 07/21/2022; Abdomen 1 View ([facility]) dated 07/21/2022; Chest Single View dated 07/20/2022; Chest Abdomen Pelvis W Cont dated 07/22/2022 FINDINGS: Lines: Endotracheal tube at the top of the aortic arch in satisfactory position. Enteric t ube below the diaphragm. PICC terminates in the region of the SVC. Lungs: Bilateral interstitial airspace disease. Mild improved aeration of the left lower lobe. Pleural: Layering pleural effusions, left greater than right. Cardiac: Cardiomegaly. Mediastinum: Within normal limits. Bones: No acute fractures. Sternotomy. Other: None IMPRESSION: Some re-expansion of the left lower lobe noted but otherwise similar widespread airspace disease that may reflect a combination of multifocal pneumonia and/or edema. Support apparatus stamisael e.
[2022-07-23 07:41] LABS: Blood Morphology Comment NOT SEEN (NOT SEEN); Platelet Estimate ADEQ; Platelets, Giant FEW; White Blood Cell Scan OK (OK)
[2022-07-23] MEDS: METOPROLOL TAR 25 MG TAB PO SCH ×3 (09:00→20:32)
[2022-07-23] MEDS: THIAMINE 200 MG/2 ML INJ IVP SCH (09:35)
[2022-07-23] MEDS: ENOXAPARIN 40 MG/0.4 ML SQ SCH (09:35)
[2022-07-23] MEDS: DESCOVY FT SCH (09:36)
[2022-07-23] MEDS: TIVICAY 50 MG FT SCH (09:36)
[2022-07-23] MEDS: ASPIRIN EC 81 MG TAB PO SCH (09:36)
[2022-07-23] MEDS: VANCOMYCIN 1.5 GM in NA CHLORIDE 0.9% 500 ML IVPB SCH ×2 (09:36→20:22)
--- NOTE | 2022-07-23 11:46 | P.PN ---
Subjective Date of Service: 07/23/22 Chief Complaint: Respiratory failure Patient continues to remain agitated on a ventilator CT scan of the abdomen showed a left lower lobe pneumonia Review of Systems is unable to be obtained Physical Examination - Vital Signs Temperature: 99 F Blood Pressure: 97/53 Pulse: 105 Respirations: 17 Pulse Ox (%): 100 - Physical Exam General: Unresponsive, Comatose, Other (Patient does open his eyes) Respiratory: Clear to auscultation bilaterally Cardiovascular: No edema, Regular rate/rhythm, Normal S1 S2 Gastrointestinal: Normal bowel sounds, Soft and benign Assessment And Plan - Current Problems (Diagnosis) (1) Respiratory failure Current Visit: Yes Status: Acute Plan: Respiratory failure CT of the chest abdomen and pelvis shows a left lower lobe consolidation endotracheal tube is satisfactory chemistries reviewed cultures so far negative recheck sputum cultures there is slight fever consider lumbar puncture oxygenation satisfactory vent settings reviewed assist-control 65% FiO2 PEEP of 10 Qualifiers: Chronicity: acute on chronic
[2022-07-23] MEDS ORDERED: POLYETHYL GLY 3350 17 GM/DOSE PO ONE (12:05)
[2022-07-23] MEDS: DOCUSATE NA 100 MG CAP PO SCH ×2 (12:39→20:54)
--- NOTE | 2022-07-23 13:07 | P.PN ---
Nephrology: (S) Pt remains intubated, CXR findings noted, hemodynamically stable, hypernatremia improved. Remains on various drips/Abx contributing to larger total daily intake General: Intubated, sedated HEENT: Atraumatic, ET/OT Neck: Supple Respiratory: Non tachypnec, b/l vent BS, reduced at bases Cardiovascular: RRR mostly Gastrointestinal: Soft, ND, NT Musculoskeletal/extremities: No sig swelling of the LE, swelling of Rt arm, Rt UE PICC line Integumentary: No rashes Neurological: Sedated so further exam is deferred Urinary: Lozano catheter Laboratory Data (last 24 hrs) Reviewed in the EMR A/P 1. SOBIA on admission largely resolved, Cr level has sig downward trended and normalized. Polyuric with > 3L/24h UOP in the setting of various intake. To minimize positive fluid balance, would consolidate/concentrate drips where possible and change some of the carrier fluids to D5W from NS 2. Hypertonic hypernatremia with water deficit last calculated as > 4L not accounting for any urinary free water losses or other insensible losses. Na level improved, so did d/c D5W IVF and cont free water flushes 3. Acute hypoxic respiratory failure -pulm infiltrates persist, pt polyuric/auto-diuresing, cont supportive care, vent weaning per primary team.
[2022-07-24] MEDS: DEXMEDETOMIDINE HCL 1,000 MCG in NA CHLORIDE 0.9% 490 ML IV SCH ×3 (00:08→19:48)
[2022-07-24] MEDS: Meropenem 1,000 MG in NA CHLORIDE 0.9% 100 ML IV SCH ×3 (00:10→17:05)
[2022-07-24] MEDS: IPRATROPIUM BROM 0.5MG/2.5ML NEB SCH ×2 (01:45→09:28)
[2022-07-24] MEDS: ALBUTEROL 2.5 MG/3 ML NEB SOL NEB PRN (01:45)
[2022-07-24] MEDS: LORazepam 2 MG/ML VIAL IV PRN ×3 (02:30→23:05)
[2022-07-24 04:59] LABS: Hematocrit 33.7 % (39.6-49.0); MCV 97.6 fL (80-100); MPV 10.5 fL (7.6-11.3); RBC Red Blood Cell Count 3.45 M/uL (4.33-5.43)
[2022-07-24 05:09] LABS: Albumin 1.4 g/dL (3.4-5.0); Bilirubin Total 0.7 mg/dL (0.2-1.0); Potassium 4.1 mmol/L (3.5-5.1)
[2022-07-24] MEDS: INSULIN -REGULAR HUMAN 50 UNIT/0.5 ML ML SQ SCH ×4 (06:19→17:46)
[2022-07-24] MEDS: METOPROLOL TAR 25 MG TAB PO SCH ×2 (08:06→21:22)
[2022-07-24] MEDS: DESCOVY FT SCH (08:06)
[2022-07-24] MEDS: DOCUSATE NA 100 MG CAP PO SCH ×2 (08:06→21:22)
[2022-07-24] MEDS: TIVICAY 50 MG FT SCH (08:07)
[2022-07-24] MEDS: VANCOMYCIN 1.5 GM in NA CHLORIDE 0.9% 500 ML IVPB SCH ×2 (08:51→20:03)
[2022-07-24] MEDS: HYDROMORPHONE HCL 2 MG/ML inj IV PRN ×3 (08:51→23:17)
[2022-07-24] MEDS: ENOXAPARIN 40 MG/0.4 ML SQ SCH (09:00)
[2022-07-24] MEDS: ASPIRIN EC 81 MG TAB PO SCH (09:00)
--- NOTE | 2022-07-24 11:41 | P.PN ---
Subjective Date of Service: 07/24/22 Chief Complaint: Respiratory failure Patient is improving more responsive oxygen requirements have decreased Review of Systems is unable to be obtained Physical Examination - Vital Signs Temperature: 98.7 F Blood Pressure: 108/57 Pulse: 63 Respirations: 16 Pulse Ox (%): 95 - Physical Exam General: Alert Respiratory: Clear to auscultation bilaterally Cardiovascular: No edema, Regular rate/rhythm, Normal S1 S2 Assessment And Plan - Current Problems (Diagnosis) (1) Respiratory failure Current Visit: Yes Status: Acute Plan: Respiratory failure is condition is improved labs chemistries all reviewed cultures are so far negative sputum cultures are pending vital signs are stable plan to wean off from the ventilator no fever chest x-ray ordered for tomorrow blood sugars mildly elevated use as needed insulin patient is a diabetic Qualifiers: Chronicity: acute on chronic
[2022-07-24] MEDS: INSULIN GLARGINE 100 UNIT/ML SQ SCH (12:23)
--- NOTE | 2022-07-24 13:02 | P.PN ---
Date of Service: 07/24/22 Subjective: no acute events overnight still no BM, s/p colace and dulcolax opens eyes to verbal stimuli, tracking ROS: unable to be obtained secondary to sedation/mech vent Physical exam GEN: intubated/, opens eyes HEENT: sclera anicteric, pupils reactive CV: Regular rate and rhythm, trace b/l pedal edema Pulm: on mech vent, crackles at left base ABD: Soft, nondistended Neuro: intubated, follows basic commands (squeezed hand ) very weak leija in place PICC in place Problem List acute hypoxemic respiratory failure secondary to pneumonia Septic shock secondary to pneumonia -COVID-19 vs bacterial HIV, chronic NSTEMI Rhabdomyolysis Thrombocytopenia SVT SOBIA IDDM2 Blood cultures: No growth. Urine culture: No growth. CT chest: b/l groundglass opacity and moderate left pleural effusion. covering for COVID pneumonia vs bacterial pneumonia Pulmonary consulted -recommended Precedex drip and weaning trials ID consulted - started remdesivir. Abx changed - switched to meropenem 07/22 added vancomeycin back on, febrile: 07/21-07/22; now afebrile but remains with Temps in 99s repeat CT - worsening pneumonia CXR 07/23 with slight improved aeration SOBIA Hypernatremia Nephrology consulted Renal function improved with IV hydration. Avoid NSAIDs; adjusting fluids for hypernatremia, improved stable started tube feeds 07/19, examination grader consulted, free water flushes 07/19 initially stopped DVT prophylaxis given worsening thrombocytopenia, but now improved, high risk for VTE; restarted lovenox prophylaxis 07/19, monitor platelets noted some dark blood mixed with stool in ostomy, monitor closely now on lovenox prophylaxis Noted hepatic steatosis and hypoalbuminemia. Seen by cardiology for SVT. Echocardiogram shows global hypokinesia with EF of 42% vtach / code blue overnight 07/18-07/19 monitor for now, consider amio if develops tachyarrhythmias again - per cardiology code blue / cardiac arrest possibly from alcohol withdrawal family report they are not aware of ETOH dependence/use CT head (07/21): negative Monitoring BMP and optimize electrolytes. Prognosis guarded. seems to have slight continued improvement - following some basic commands / tracking CRP continues to rise Code: full Dispo: continue ICU level of care Time Spent Managing Pts Care (In Minutes): 35
[2022-07-25] MEDS: Meropenem 1,000 MG in NA CHLORIDE 0.9% 100 ML IV SCH ×3 (00:09→18:08)
[2022-07-25] MEDS: LORazepam 2 MG/ML VIAL IV PRN (03:43)
[2022-07-25] MEDS: VITAL HP 1,000 ML BOT RTH SCH (03:44)
[2022-07-25 04:59] LABS: Hematocrit 32.1 % (39.6-49.0); MPV 10.4 fL (7.6-11.3); RBC Red Blood Cell Count 3.31 M/uL (4.33-5.43)
[2022-07-25] MEDS: HYDROMORPHONE HCL 2 MG/ML inj IV PRN ×3 (05:13→21:34)
[2022-07-25 05:16] LABS: Albumin 1.4 g/dL (3.4-5.0); Bilirubin Total 0.6 mg/dL (0.2-1.0); Magnesium 1.9 mg/dL (1.6-2.4); Potassium 3.6 mmol/L (3.5-5.1); Protein, Total 5.1 g/dL (6.4-8.2)
[2022-07-25] MEDS: INSULIN -REGULAR HUMAN 50 UNIT/0.5 ML ML SQ SCH ×4 (05:23→18:00)
[2022-07-25] MEDS ORDERED: POTASSIUM 25 MEQ EFFERV TAB PO ONE (05:25)
[2022-07-25] MEDS: POTASS/SODIUM PHOSPHATE 1 PKT POWD.PACK PO SCH ×3 (05:30→09:17)
[2022-07-25] MEDS: DEXMEDETOMIDINE HCL 1,000 MCG in NA CHLORIDE 0.9% 490 ML IV SCH ×2 (06:01→21:47)
--- NOTE | 2022-07-25 06:44 | P.PN ---
Date of Service: 07/25/22 Subjective: no acute events overnight follows commands intermittently vitals ok small BM after enema last night ROS: unable to be obtained secondary to sedation/mech vent Physical exam GEN: intubated/, opens eyes, tacks HEENT: sclera anicteric, pupils reactive CV: Regular rate and rhythm, trace b/l pedal edema Pulm: on mech vent, crackles at left base ABD: Soft, nondistended Neuro: intubated, follows basic commands (squeezed hand ) very weak leija in place PICC in place Problem List acute hypoxemic respiratory failure secondary to pneumonia Septic shock secondary to pneumonia -COVID-19 vs bacterial HIV, chronic NSTEMI Rhabdomyolysis Thrombocytopenia SVT SOBIA IDDM2 Blood cultures: No growth. Urine culture: No growth. CT chest: b/l groundglass opacity and moderate left pleural effusion. covering for COVID pneumonia vs bacterial pneumonia Pulmonary consulted wean precedex weaning trials, possible extubation today ID consulted - started remdesivir. Abx changed - switched to meropenem 07/22 added vancomeycin back on, febrile: 07/21-07/22; now afebrile but remains with Temps in 99s repeat CT - worsening pneumonia CXR 07/23 with slight improved aeration SOBIA Hypernatremia Nephrology consulted Renal function improved with IV hydration. Avoid NSAIDs; adjusting fluids for hypernatremia, improved stable started tube feeds 07/19, dredge lever operator consulted, free water flushes 07/19 initially stopped DVT prophylaxis given worsening thrombocytopenia, but now improved, high risk for VTE; restarted lovenox prophylaxis 07/19, monitor platelets noted some dark blood mixed with stool in ostomy, monitor closely now on lovenox prophylaxis Noted hepatic steatosis and hypoalbuminemia. Seen by cardiology for SVT. Echocardiogram shows global hypokinesia with EF of 42% vtach / code blue overnight 07/18-07/19 monitor for now, consider amio if develops tachyarrhythmias again - per cardiology code blue / cardiac arrest possibly from alcohol withdrawal family report they are not aware of ETOH dependence/use CT head (07/21): negative Monitoring BMP and optimize electrolytes. seems to have slight continued improvement - following some basic commands / tracking CRP continues to rise Code: full Dispo: continue ICU level of care Time Spent Managing Pts Care (In Minutes): 35
--- NOTE | 2022-07-25 07:49 | RAD REPORT ---
EXAM DESCRIPTION: Desiree Single View07/25/2022 6:07 am CLINICAL HISTORY: Respiratory failure COMPARISON: July 23, 2022 FINDINGS: Left lower lobe atelectasis unchanged. Mild bilateral pulmonary opacities minimally improved Endotracheal tube with its tip 1.3 centimeters above the top of the aortic arch. NG tube in the stomach. PICC line in place
[2022-07-25] MEDS: TIVICAY 50 MG FT SCH (09:00)
[2022-07-25] MEDS ORDERED: ASPIRIN 81 MG CHEWABLE TABLET PO SCH (09:00)
[2022-07-25] MEDS: METOPROLOL TAR 25 MG TAB PO SCH ×3 (09:17→21:33)
[2022-07-25] MEDS: ENOXAPARIN 40 MG/0.4 ML SQ SCH (09:17)
[2022-07-25] MEDS: INSULIN GLARGINE 100 UNIT/ML SQ SCH (09:18)
[2022-07-25] MEDS: DOCUSATE NA 100 MG CAP PO SCH ×3 (09:18→21:34)
[2022-07-25] MEDS: VANCOMYCIN 1.5 GM in NA CHLORIDE 0.9% 500 ML IVPB SCH ×2 (09:19→20:56)
[2022-07-25] MEDS: DESCOVY FT SCH (09:19)
--- NOTE | 2022-07-25 11:45 | P.PN ---
Subjective Date of Service: 07/25/22 Chief Complaint: Respiratory failure Subjective: No new changes (Patient remains on ventilator respond to verbal stimuli) Review of Systems is unable to be obtained Physical Examination - Vital Signs Temperature: 97.6 F Blood Pressure: 126/68 Pulse: 69 Respirations: 24 Pulse Ox (%): 93 - Physical Exam General: Other HEENT: Atraumatic, Normocephalic Neck: Supple, JVD not distended Respiratory: Dull, Crackles/rales Cardiovascular: Normal S1 S2 Gastrointestinal: Normal bowel sounds, Soft and benign, No tenderness, No masses, No rebound Musculoskeletal: No swelling, No contractures Integumentary: No rashes, No breakdown Lymphatics: No axilla or inguinal lymphadenopathy Assessment And Plan - Plan Respiratory failure s/p cardioversion patient remains on ventilator slightly more responsive HIV disease CD4 count pending Pancytopenia improving Severe protein calorie malnourishment Fevers improving Continue meropenem and vancomycin
--- NOTE | 2022-07-25 12:22 | P.PN ---
Subjective Date of Service: 07/25/22 Chief Complaint: Respiratory failure Patient is improving more responsive vital signs stable oxygenation satisfactory Review of Systems is unable to be obtained Physical Examination - Vital Signs Temperature: 97.6 F Blood Pressure: 126/68 Pulse: 69 Respirations: 24 Pulse Ox (%): 93 - Physical Exam General: Alert Respiratory: Clear to auscultation bilaterally, Diminished Cardiovascular: No edema, Regular rate/rhythm, Normal S1 S2 Assessment And Plan - Current Problems (Diagnosis) (1) Respiratory failure Current Visit: Yes Status: Acute Plan: Respiratory failure left lower lobe pneumonia on 35% FiO2 plan to wean and possibly extubate sputum cultures normal respiratory [place] cultures are negative labs reviewed chest x-ray seems to have improved Qualifiers: Chronicity: acute on chronic
--- NOTE | 2022-07-25 21:41 | P.PN ---
Date of Service: 07/25/22 Vital Signs Temp Pulse Resp BP Pulse Ox 98.3 F 132 H 27 H 154/87 H 93 07/25/22 18:00 07/25/22 21:33 07/25/22 21:34 07/25/22 21:33 07/25/22 21:00 Medications Acetaminophen (Acetaminophen 650mg/Rect Supp) 650 mg [place] Q4H PRN PRN Reason: TEMP > 100.4' F Last Admin: 07/23/22 00:37 Dose: 650 mg Dextrose (D10w 250 Ml Bag) 125 ml IV PRN PRN PRN Reason: HYPOGLYCEMIA Last Admin: 07/16/22 00:43 Dose: 125 ml Docusate Sodium (Docusate Na 100 Mg Cap) 100 mg PO BID [facility] Last Admin: 07/25/22 21:34 Dose: 100 mg Enoxaparin Sodium (Enoxaparin 40 Mg/0.4 Ml) 40 mg SQ DAILY [facility] Last Admin: 07/25/22 09:17 Dose: 40 mg Glucagon (Glucagon 1 Mg/Vial) 1 mg IM 1X PRN PRN Reason: HYPOGLYCEMIA Home Med (Home Med [Tivicay 50mg Tabs]) 1 ea FT DAILY [facility] Last Admin: 07/25/22 09:00 Dose: 1 ea Home Med (Home Med [Descovy 200-25mg-1 Tablet]) 1 ea FT DAILY [facility] Last Admin: 07/25/22 09:19 Dose: 1 ea Hydromorphone HCl (Hydromorphone Hcl 2 Mg/Ml Inj) 2 mg IV Q4HP PRN PRN Reason: Pain scale 8-10 (Severe) Stop: 07/31/22 12:24 Last Admin: 07/25/22 21:34 Dose: 2 mg Dextrose (D10w 500 Ml Ivpb) 500 mls @ 0 mls/hr IV .Q0M [facility] Last Admin: 07/15/22 17:35 Dose: 500 mls Dextrose (Dextrose 10% Water Iv Soln.) 250 mls @ 0 mls/hr IV .Q0M [facility] Dexmedetomidine HCl 1,000 mcg/ (Sodium Chloride) 500 mls @ 9.5 mls/hr IV TITR [facility]; Protocol Last Titration: 07/25/22 15:10 Dose: Infused Meropenem 1,000 mg/ Sodium (Chloride) 100 mls @ 200 mls/hr IV Q8HR [facility] Last Admin: 07/25/22 18:08 Dose: 100 mls Vancomycin HCl 1.5 gm/ Sodium (Chloride) 500 mls @ 333.333 mls/hr IVPB Q12H [facility] Last Admin: 07/25/22 20:56 Dose: 500 mls Insulin Glargine (Insulin Glargine 100 Unit/Ml) 20 unit SQ DAILY [facility] Last Admin: 07/25/22 09:18 Dose: 20 unit Insulin Human Regular (Insulin -Regular Human 50 Unit/0.5 Ml Ml) 0 unit SQ Q6HR [facility]; Protocol Last Admin: 07/25/22 18:00 Dose: Not Given Lorazepam (Lorazepam 2 Mg/Ml Vial) 2 mg IV Q2H PRN PRN Reason: SEDATION Stop: 07/31/22 12:23 Last Admin: 07/25/22 03:43 Dose: 2 mg Metoprolol Tartrate (Metoprolol Tar 25 Mg Tab) 25 mg PO BID [facility] Last Admin: 07/25/22 21:33 Dose: 25 mg Nutritional Formula (Vital Hp 1,000 Ml Bot) 0 ml RTH CONT [facility] Last Admin: 07/25/22 03:44 Dose: 1,000 ml Ondansetron HCl (Ondansetron 4 Mg/2 Ml Vial) 4 mg IV Q6HP PRN PRN Reason: NAUSEA / VOMITING Last Admin: 07/15/22 10:30 Dose: 4 mg Sodium Chloride (Flush Normal Saline 10 Ml) 10 ml IV BID [facility] Last Admin: 07/25/22 21:34 Dose: 10 ml Sterile Water (Water For Inj,Sterile 10 Ml) 1.2 ml IM UD PRN PRN Reason: DILUTION OF MED Microbiology Results 07/14/22 22:54 Blood - Blood Aerobic Blood Culture - Final No growth in 5 days. 07/14/22 22:54 Blood - Blood Anaerobic Blood Culture - Final No growth in 5 days. 07/14/22 22:35 Blood - Blood Aerobic Blood Culture - Final No growth in 5 days. 07/14/22 22:35 Blood - Blood Anaerobic Blood Culture - Final No growth in 5 days. 07/14/22 11:40 Clean Catch Urine [place] Count - Final No growth. 07/14/22 11:40 Clean Catch Urine - Final No growth. Assessment/ Plan: Nephrology Limited IH/ ROS due to intubation/ AMS No acute events overnight Vitals, medications, blood work and imaging reviewed in the chart. NAD. NCAT. MMM. Neck supple. CTA. RRR. Abd ND. No C/C/E. No rash. Responsive. No speech. LEFT VENTRICULAR WALL MOTION: MODERATE GLOBAL HYPOKINESIS. DOPPLER/COLOR FLOW: NORMAL. COMMENTS: MODERATE GLOBAL HYPOKINESIS. EJECTION FRACTION 42%. LEFT VENTRICULAR HYPERTROPHY SOBIA likely due to hypovolemia possibly complicated by ATN, resolved CKD with proteinuria -No NSAIDs Hypernatremia -Continue free water flushes Rhabdomyolysis, resolved -Continue IVF HTN with CKD/ CHF Hypotension, resolved -Monitor BP Systolic CHF, chronic LVH -Daily weight DM II with hyperglycemia & CKD -Continue Lantus -RISS q6h Severe malnutrition Hypoalbuminemia NPO and acute decreased functional ability -Continue tube feedings Anemia in chronic illness Thrombocytopenia -Monitor CBC COVID-19 PNA LLL PNA Acute hypoxic respiratory failure -Intubated/ Continue ventilatory support -Continue abx Toxic metabolic encephalopathy -Continue supportive care Greater than 30min patient care
[2022-07-26] MEDS: Meropenem 1,000 MG in NA CHLORIDE 0.9% 100 ML IV SCH ×3 (00:27→16:41)
[2022-07-26 05:19] LABS: Hematocrit 30.9 % (39.6-49.0); MCV 96.7 fL (80-100); MPV 10.3 fL (7.6-11.3)
[2022-07-26 05:38] LABS: Albumin 1.4 g/dL (3.4-5.0); Bilirubin Total 0.6 mg/dL (0.2-1.0); C-Reactive Protein 79.3 mg/L (<3.00); Magnesium 1.9 mg/dL (1.6-2.4); Phosphorus 2.8 mg/dL (2.5-4.9); Potassium 3.5 mmol/L (3.5-5.1)
[2022-07-26] MEDS: INSULIN -REGULAR HUMAN 50 UNIT/0.5 ML ML SQ SCH ×5 (06:00→21:00)
[2022-07-26] MEDS ORDERED: KCL 20 MEQ/100 mL IVPB 20 MEQ/100 ML BAG IV SCH ×2 (07:00→08:30)
--- NOTE | 2022-07-26 07:42 | RAD REPORT ---
EXAM DESCRIPTION: RAD - Chest Single View - 07/26/2022 6:57 am CLINICAL HISTORY: Aspiratory failure COMPARISON: Portable 07/25/2022 TECHNIQUE: AP portable chest image was obtained 07/26/2022 6:57 am . FINDINGS: Right-side PICC line is still in place. Endotracheal tube has been removed. No new tube or line. Interstitial and patchy alveolar opacities are still present not substantially different from compari son. Heart size is upper normal but stable. Central vascular is mildly prominent. No measurable pleural effusion and no pneumothorax. Delete select IMPRESSION: Extubation chest film shows no change to the bilateral interstitial and patchy alveolar opacification. Prominent heart size and prominent vasculature also are stable.
[2022-07-26] MEDS: VANCOMYCIN 1.5 GM in NA CHLORIDE 0.9% 500 ML IVPB SCH (08:33)
[2022-07-26] MEDS: METOPROLOL TAR 25 MG TAB PO SCH ×2 (08:34→21:09)
[2022-07-26] MEDS: DOCUSATE NA 100 MG CAP PO SCH ×2 (08:35→21:09)
[2022-07-26] MEDS: DESCOVY FT SCH ×2 (08:35→08:36)
[2022-07-26] MEDS: TIVICAY 50 MG FT SCH (08:36)
[2022-07-26] MEDS: ENOXAPARIN 40 MG/0.4 ML SQ SCH (08:36)
[2022-07-26] MEDS: INSULIN GLARGINE 100 UNIT/ML SQ SCH (08:38)
[2022-07-26] MEDS: DEXMEDETOMIDINE HCL 1,000 MCG in NA CHLORIDE 0.9% 490 ML IV SCH (10:30)
[2022-07-26] MEDS ORDERED: WATER FOR INJ,STERILE 10 ML IM PRN (12:09)
[2022-07-26] MEDS ORDERED: ZIPRASIDONE MESYLA 20 MG/VIAL IM PRN (12:09)
--- NOTE | 2022-07-26 12:12 | P.PN ---
Subjective Date of Service: 07/26/22 Chief Complaint: Respiratory failure patient extubated Patient is off the ventilator on high flow nasal cannula delirious and psychotic with agitation Review of Systems is unable to be obtained Physical Examination - Vital Signs Temperature: 98.4 F Blood Pressure: 121/64 Pulse: 78 Respirations: 32 Pulse Ox (%): 93 - Physical Exam General: Delirious Respiratory: Clear to auscultation bilaterally Cardiovascular: Normal pulses Assessment And Plan - Current Problems (Diagnosis) (1) Respiratory failure Current Visit: Yes Status: Acute Plan: Patient extubated yesterday hemodynamically stable cultures are negative DC vancomycin labs all reviewed renal function is normal add Sergiodon chest x-ray reviewed vital signs stable add thiamine Qualifiers: Chronicity: acute on chronic
--- NOTE | 2022-07-26 14:22 | PN ---
Date of Progress Note: 07/20/2022 Mr. Camargo has had an episode of ventricular tachycardia. He was treated with metoprolol that has resolved. On 07/20/2022, his vital signs were stable. He is still on mechanical ventilation. He is in sinus rhythm at a rate of 76, afebrile. His laboratory evaluation is fairly unremarkable. Last creatinine is 1.0. He remains on inhalers, aspirin, Lipitor, Lovenox, antibiotics, and insulin. We will continue to follow him as needed. BRENNAN/ANTHONY Voice ID: [id number] Report ID: [id number]
--- NOTE | 2022-07-26 14:25 | P.PN ---
Subjective Date of Service: 07/26/22 Chief Complaint: Respiratory failure patient extubated No major changes from yesterday. Patient continues to experience intermittent fever and intermittent SVT. Stable on the vent. Blood pressure readings are better today. Physical Examination - Vital Signs Temperature: 99.0 F Blood Pressure: 114/64 Pulse: 76 Respirations: 26 Pulse Ox (%): 94 Assessment And Plan - Current Problems (Diagnosis) (1) Metabolic encephalopathy Current Visit: Yes Status: Acute (2) COVID-19 virus infection Current Visit: Yes Status: Acute (3) HIV disease Current Visit: Yes Status: Acute (4) NSTEMI (non-ST elevated myocardial infarction) Current Visit: Yes Status: Acute (5) Rhabdomyolysis Current Visit: Yes Status: Acute Qualifiers: Rhabdomyolysis type: non-traumatic Qualified Code(s): M62.82 - Rhabdomyolysis (6) Thrombocytopenia Current Visit: Yes Status: Acute (7) SVT (supraventricular tachycardia) Current Visit: Yes Status: Acute (8) SOBIA (acute kidney injury) Current Visit: Yes Status: Acute (9) Septic shock Current Visit: Yes Status: Acute (10) Hypoglycemia Current Visit: Yes Status: Acute (11) DM type 2 (diabetes mellitus, type 2) Current Visit: Yes Status: Chronic Qualifiers: Diabetes mellitus halfway insulin use: with halfway use Diabetes mellitus complication status: with hyperglycemia Qualified Code(s): E11.65 - Type 2 diabetes mellitus with hyperglycemia; 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 Respiratory: Bibasilar Rales, no wheezes. Cardiovascular: No edema, regular, tachycardia, Normal S1 S2 Gastrointestinal: Normal bowel sounds, No tenderness, nondistended Musculoskeletal: No tenderness Integumentary: No rashes Neurological: No focal motor deficit. Plan: Frequency of fever episode improved. Blood cultures: No growth. Urine culture: No growth. Repeat CT chest shows bilateral groundglass opacity and moderate left pleural effusion. COVID pneumonia versus bacterial pneumonia Continue IV steroid, zinc, vitamin C and vitamin D. CRP is markedly elevated. Pulmonary evaluated patient-recommended Precedex drip and weaning trials Infectious disease seen patient and started on remdesivir. Antibiotics also changed to IV Zithromax and meropenem per infectious disease. Tylenol and cooling blanket for fever. Continue empiric antibiotics for now. Nephrology seen patient for SOBIA. Renal function is improving with IV hydration. Avoid NSAIDs per nephrology. Discontinued anticoagulation for DVT prophylaxis given worsening thrombocytopenia. Status post 10% dextrose for hypoglycemia. Noted hepatic steatosis and hypoalbuminemia. Continue D5 normal saline. Monitor fingerstick glucose. Seen by cardiology for SVT. Echocardiogram shows global hypokinesia with EF of 42% Continue metoprolol. Monitoring BMP and optimize electrolytes. Prognosis guarded. Physical exam GEN: intubated/, opens eyes, tacks HEENT: sclera anicteric, pupils reactive CV: Regular rate and rhythm, trace b/l pedal edema Pulm: on mech vent, crackles at left base ABD: Soft, nondistended Neuro: intubated, follows basic commands (squeezed hand ) very weak leija in place PICC in place Problem List acute hypoxemic respiratory failure secondary to pneumonia Septic shock secondary to pneumonia -COVID-19 vs bacterial HIV, chronic NSTEMI Rhabdomyolysis Thrombocytopenia SVT SOBIA IDDM2 Blood cultures: No growth. Urine culture: No growth. CT chest: b/l groundglass opacity and moderate left pleural effusion. Patient being treated for COVID pneumonia and bacterial pneumonia Pulmonary is following and recommend to wean off precedex ID saw patient and was treated with remdesivir. Initially on IV cefepime and Vanco, antibiotics switched to meropenem and vancomycin later added again. Patient has defervesced Radiographic signs of pneumonia not responded to treatment. SOBIA Hypernatremia Nephrology consulted SOBIA and hyponatremia resolved with IV hydration. Avoid NSAIDs. started tube feeds 07/19, account clerk consulted, free water flushes 07/19. Patient extubated. Oral feeding as tolerated. initially stopped DVT prophylaxis given worsening thrombocytopenia, but now improved, high risk for VTE; restarted lovenox prophylaxis 07/19, monitor platelets noted some dark blood mixed with stool in ostomy, monitor closely now on lovenox prophylaxis Noted hepatic steatosis and hypoalbuminemia. Seen by cardiology for SVT. Echocardiogram shows global hypokinesia with EF of 42% vtach / code blue overnight 07/18-07/19 monitor for now, consider amio if develops tachyarrhythmias again - per cardiology Family report they are not aware of ETOH dependence/use CT head (07/21): negative Monitoring BMP and optimize electrolytes. Code: full Dispo: continue ICU level of care Time Spent Managing Pts Care (In Minutes): 38
--- NOTE | 2022-07-26 14:36 | PN ---
Date of Progress Note: 07/19/2022 Patient was seen because of elevated troponin, rhabdomyolysis. Has a history of HIV, congestive hear t failure, diabetes, hypertension, coronary artery disease. Mr. Camargo had an echocardiogram that showed an ejection fraction of 42% with moderate global hypokinesis and left ventricular hypertrophy. On 07/19/2022, he had an episode of ventricular tachycardia. He had been intubated mechanically si [facility] admission on July. His ventricular tachycardia resolved. He is now in sinus rhythm with a normal blood pressure, adequate O2 saturation. Present regimen includes antibiotics, remdesiv ir, Lipitor, Lovenox, insulin. He may be a candidate for amiodarone if he has anymore arrhythmias. We will continue to follow. LYNN Voice ID: [id number] Report ID: [id number]
[2022-07-26] MEDS ORDERED: HALOPERIDOL LACT 5 MG/ML INJ IV PRN (16:39)
[2022-07-26] MEDS ORDERED: LORazepam 2 MG/ML VIAL IV PRN (16:42)
[2022-07-26] MEDS: THIAMINE 200 MG/2 ML INJ IVP SCH (21:09)
--- NOTE | 2022-07-26 22:28 | P.PN ---
Date of Service: 07/26/22 Vital Signs Temp Pulse Resp BP Pulse Ox 99.0 F 92 H 29 H 125/56 L 95 07/26/22 20:00 07/26/22 21:09 07/26/22 20:00 07/26/22 21:09 07/26/22 20:00 Medications Acetaminophen (Acetaminophen 650mg/Rect Supp) 650 mg [place] Q4H PRN PRN Reason: TEMP > 100.4' F Last Admin: 07/23/22 00:37 Dose: 650 mg Dextrose (D10w 250 Ml Bag) 125 ml IV PRN PRN PRN Reason: HYPOGLYCEMIA Last Admin: 07/16/22 00:43 Dose: 125 ml Docusate Sodium (Docusate Na 100 Mg Cap) 100 mg PO BID [facility] Last Admin: 07/26/22 21:09 Dose: 100 mg Enoxaparin Sodium (Enoxaparin 40 Mg/0.4 Ml) 40 mg SQ DAILY [facility] Last Admin: 07/26/22 08:36 Dose: 40 mg Glucagon (Glucagon 1 Mg/Vial) 1 mg IM 1X PRN PRN Reason: HYPOGLYCEMIA Haloperidol Lactate (Haloperidol Lact 5 Mg/Ml Inj) 2 mg IV Q6H PRN PRN Reason: Confusion Home Med (Home Med [Tivicay 50mg Tabs]) 1 ea FT DAILY [facility] Last Admin: 07/26/22 08:36 Dose: 1 ea Home Med (Home Med [Descovy 200-25mg-1 Tablet]) 1 ea FT DAILY [facility] Last Admin: 07/26/22 08:36 Dose: Not Given Dextrose (D10w 500 Ml Ivpb) 500 mls @ 0 mls/hr IV .Q0M [facility] Last Admin: 07/15/22 17:35 Dose: 500 mls Dextrose (Dextrose 10% Water Iv Soln.) 250 mls @ 0 mls/hr IV .Q0M [facility] Dexmedetomidine HCl 1,000 mcg/ (Sodium Chloride) 500 mls @ 9.5 mls/hr IV TITR [facility]; Protocol Last Titration: 07/26/22 17:15 Dose: 0 mcg/kg/hr, 0 mls/hr Meropenem 1,000 mg/ Sodium (Chloride) 100 mls @ 200 mls/hr IV Q8HR [facility] Last Admin: 07/26/22 16:41 Dose: 100 mls Insulin Human Regular (Insulin -Regular Human 50 Unit/0.5 Ml Ml) 0 unit SQ [facility]; Protocol Last Admin: 07/26/22 21:00 Dose: Not Given Lorazepam (Lorazepam 2 Mg/Ml Vial) 2 mg IV Q4H PRN PRN Reason: ANXIETY Stop: 07/31/22 12:23 Metoprolol Tartrate (Metoprolol Tar 25 Mg Tab) 25 mg PO BID [facility] Last Admin: 07/26/22 21:09 Dose: 25 mg Ondansetron HCl (Ondansetron 4 Mg/2 Ml Vial) 4 mg IV Q6HP PRN PRN Reason: NAUSEA / VOMITING Last Admin: 07/15/22 10:30 Dose: 4 mg Sodium Chloride (Flush Normal Saline 10 Ml) 10 ml IV BID [facility] Last Admin: 07/26/22 21:08 Dose: 10 ml Sterile Water (Water For Inj,Sterile 10 Ml) 1.2 ml IM UD PRN PRN Reason: DILUTION OF MED Thiamine HCl (Thiamine 200 Mg/2 Ml Inj) 200 mg IVP BID [facility] Last Admin: 07/26/22 21:09 Dose: 200 mg Ziprasidone (Ziprasidone Mesyla 20 Mg/Vial) 10 mg IM Q12H PRN PRN Reason: AGITATION Microbiology Results 07/14/22 22:54 Blood - Blood Aerobic Blood Culture - Final No growth in 5 days. 07/14/22 22:54 Blood - Blood Anaerobic Blood Culture - Final No growth in 5 days. 07/14/22 22:35 Blood - Blood Aerobic Blood Culture - Final No growth in 5 days. 07/14/22 22:35 Blood - Blood Anaerobic Blood Culture - Final No growth in 5 days. 07/14/22 11:40 Clean Catch Urine [place] Count - Final No growth. 07/14/22 11:40 Clean Catch Urine - Final No growth. Assessment/ Plan: Nephrology Extubated yesterday and feeling better No acute events overnight Vitals, medications, blood work and imaging reviewed in the chart. NAD. NCAT. MMM. Neck supple. CTA. RRR. Abd ND. No C/C/E. No rash. Awake. LEFT VENTRICULAR WALL MOTION: MODERATE GLOBAL HYPOKINESIS. DOPPLER/COLOR FLOW: NORMAL. COMMENTS: MODERATE GLOBAL HYPOKINESIS. EJECTION FRACTION 42%. LEFT VENTRICULAR HYPERTROPHY SOBIA likely due to hypovolemia possibly complicated by ATN, resolved CKD I with proteinuria -No NSAIDs Hypernatremia -Encourage fluid intake Rhabdomyolysis, resolved HTN with CKD/ CHF Hypotension, resolved -Monitor BP Systolic CHF, chronic LVH -Daily weight DM II with hyperglycemia & CKD -Continue Lantus -RISS Severe malnutrition Hypoalbuminemia -Advance diet as tolerated Anemia in chronic illness Thrombocytopenia -Monitor CBC COVID-19 PNA LLL PNA Acute hypoxic respiratory failure -Continue abx Toxic metabolic encephalopathy -Continue supportive care
[2022-07-27] MEDS: Meropenem 1,000 MG in NA CHLORIDE 0.9% 100 ML IV SCH ×3 (01:01→17:00)
[2022-07-27] MEDS: ONDANSETRON 4 MG/2 ML VIAL IV PRN (05:00)
[2022-07-27 05:40] VITALS: BMI 33.2
[2022-07-27 05:58] LABS: Absolute Lymphocytes (CBC) 0.6 K/uL (0.7-4.9); Hematocrit 31.9 % (39.6-49.0); Lymphocytes % 14.3 % (15.3-44.8); MCV 96.2 fL (80-100); MPV 10.5 fL (7.6-11.3); RBC Red Blood Cell Count 3.32 M/uL (4.33-5.43)
[2022-07-27 06:13] LABS: Albumin 1.5 g/dL (3.4-5.0); Bilirubin Total 0.6 mg/dL (0.2-1.0); Magnesium 1.7 mg/dL (1.6-2.4); Phosphorus 2.4 mg/dL (2.5-4.9); Potassium 3.4 mmol/L (3.5-5.1); Protein, Total 5.1 g/dL (6.4-8.2)
[2022-07-27] MEDS ORDERED: POTASSIUM 25 MEQ EFFERV TAB PO ONE (07:00)
[2022-07-27] MEDS ORDERED: MAGNESIUM SULFATE 1 gm IVPB 1 GM/100 ML BAG IV ONE (07:00)
[2022-07-27] MEDS: INSULIN -REGULAR HUMAN 50 UNIT/0.5 ML ML SQ SCH ×3 (07:30→16:30)
[2022-07-27] MEDS: DESCOVY FT SCH (08:16)
[2022-07-27] MEDS: TIVICAY 50 MG FT SCH (08:16)
[2022-07-27] MEDS: DOCUSATE NA 100 MG CAP PO SCH (08:17)
[2022-07-27] MEDS: METOPROLOL TAR 25 MG TAB PO SCH (08:17)
[2022-07-27] MEDS: ENOXAPARIN 40 MG/0.4 ML SQ SCH (08:19)
[2022-07-27] MEDS: THIAMINE 200 MG/2 ML INJ IVP SCH (08:20)
--- NOTE | 2022-07-27 08:45 | RAD REPORT ---
EXAM DESCRIPTION: RAD - Chest Single View - 07/27/2022 6:26 am CLINICAL HISTORY: Aspiratory failure Chest pain. COMPARISON: Chest Single View dated 07/26/2022; Chest Single View dated 07/25/2022; Chest Single Vie w dated 07/23/2022; Chest Single View dated 07/22/2022 FINDINGS: Portable technique limits examination quality. Bilateral hazy pulmonary opacities are again seen, mildly improved since yesterday's study. The heart is mildly enlarged in size with sternotomy wires present. Right-sided PICC line has tip in the SVC. IMPRESSION: Mild improvement in lung aeration is seen since yesterday's examination.
--- NOTE | 2022-07-27 13:33 | PN ---
Subjective: The patient extubated and able to respond to verbal stimuli. Denies any discomfort at t his time. Objective: Vital Signs: Temperature 98, pulse 82, respirations 17, blood pressure 129/65. Lungs: Basal crackles. Heart: S1, S2. Regular. Abdomen: Soft, nontender. Bowel sounds present. Extremity: No edema. Laboratory Data: WBC 4.1, hemoglobin 10.8, platelets are 128. BUN is 16, creatinine 0.4, albumin is 1.5. Assessment And Plan: Respiratory failure. The patient is status post extubation, doing better clini daniel. Continue pulmonary hygiene. Currently on meropenem empirically as all his cultures are negat abdoul. HIV disease, anemia of chronic disease, pancytopenia, COVID-19 infection, non-ST elevation myoc ardial infarction. Continue supportive care and pulmonary hygiene. We will follow the patient as ne eded. NF/MODL Voice ID: [id number] Report ID: [id number]
--- NOTE | 2022-07-27 13:38 | P.DS ---
Admission Date: 07/15/22 Discharge Date: 07/27/22 Disposition: [facility] AC[facility]ARE FACILITY Discharge Condition: FAIR Reason for Admission: Respiratory failure patient extubated - Problems (1) Metabolic encephalopathy Current Visit: Yes Status: Acute (2) COVID-19 virus infection Current Visit: Yes Status: Acute (3) HIV disease Current Visit: Yes Status: Acute (4) NSTEMI (non-ST elevated myocardial infarction) Current Visit: Yes Status: Acute (5) Rhabdomyolysis Current Visit: Yes Status: Acute Qualifiers: Rhabdomyolysis type: non-traumatic Qualified Code(s): M62.82 - Rhabdomyolysis (6) Thrombocytopenia Current Visit: Yes Status: Acute (7) SVT (supraventricular tachycardia) Current Visit: Yes Status: Acute (8) SOBIA (acute kidney injury) Current Visit: Yes Status: Acute (9) Septic shock Current Visit: Yes Status: Acute (10) Hypoglycemia Current Visit: Yes Status: Acute (11) DM type 2 (diabetes mellitus, type 2) Current Visit: Yes Status: Chronic Qualifiers: Diabetes mellitus detention insulin use: with detention use Diabetes mellitus complication status: with hyperglycemia Qualified Code(s): E11.65 - Type 2 diabetes mellitus with hyperglycemia; 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 He was noted to be hypotensive, tachycardic, and febrile. 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 Initial vital signs upon arrival to ED- BP 67/41, HR 120, RR 25, 92% on 2L. Sepsis protocol was immediately initiated and patient given IV fluid boluses. His blood pressure responded appropriately. His labs are significant for WBC 11.6, plt 88, sodium 131, potassium 3.3, chloride 97, BUN 62, Cr 3.29, lactate 2.2, AST 95, CK 3798, trop HS 938, BNP 8702, albumin 2.7. Chest xray showed "Mildly prominent interstitial markings. No consolidation." CT head/cspine negative for acute findings. BP improved to 97/73. Patient was still lethargic but answering questions appropriately. He was given 324 mg aspirin and started on heparin drip for elevated troponin. Patient was admitted for further management. Hospital Course: Diagnosis acute hypoxemic respiratory failure secondary to pneumonia Septic shock secondary to pneumonia -COVID-19 vs bacterial HIV, chronic NSTEMI Rhabdomyolysis Thrombocytopenia SVT SOBIA IDDM2 Acute metabolic encephalopathy Patient admitted to the ICU and sepsis protocol continued with IV antibiotics- cefepime and vancomycin. Blood cultures: No growth. Urine culture: No growth. CT chest: b/l groundglass opacity and moderate left pleural effusion. Patient treated for COVID pneumonia and bacterial pneumonia He was subsequently intubated for acute respiratory distress with hypoxia and agitation ID saw patient and was treated with remdesivir. Initially on IV cefepime and Vanco, antibiotics switched to meropenem, and vancomycin later added again. Patient has defervesced Radiographic signs of pneumonia not responded to treatment yet. Patient extubated and currently tolerating high flow oxygen, FiO2 of 45%. Initially obtunded but now more awake but still quite confused. SOBIA Hypernatremia Nephrology consulted SOBIA and hyponatremia resolved with IV hydration. Started tube feeds 07/19, head gauge unit operator consulted, free water flushes started 07/19. Patient eventually extubated. Oral feeding today. Initially stopped DVT prophylaxis given worsening thrombocytopenia, but now improved, high risk for VTE; restarted lovenox prophylaxis 07/19, monitor platelets Noted hepatic steatosis and hypoalbuminemia. Seen by cardiology for SVT. Echocardiogram shows global hypokinesia with EF of 42% vtach / code blue called 07/18-07/19 Cardiology recommend amiodarone drip if patient develops tachyarrhythmia again. CT head (07/21): negative Patient has been accepted to LT[facility]. His vital signs are stable to accommodate transfer. Vital Signs/Physical Exam: Temp Pulse Resp BP Pulse Ox 98.4 F 82 17 129/65 96 07/27/22 08:00 07/27/22 10:00 07/27/22 10:00 07/27/22 10:00 07/27/22 10:00 General: Confused HEENT: Mucous membr. moist/pink Neck: JVD not distended Respiratory: Crackles/rales (Bilateral) Cardiovascular: Normal S1 S2 Gastrointestinal: Soft and benign, Non-distended Musculoskeletal: No swelling Neurological: Other (Patient moves all extremities) Laboratory Data at Discharge: WBC 4.10 K/uL (4.3-10.9) L 07/27/22 04:40 Hgb 10.8 g/dL (13.6-17.9) L 07/27/22 04:40 Hct 31.9 % (39.6-49.0) L 07/27/22 04:40 Plt Count 128 K/uL (152-406) L D 07/27/22 04:40 PT 11.9 SECONDS (9.5-12.5) 07/14/22 22:35 INR 1.08 07/14/22 22:35 APTT 60.9 SECONDS (24.3-36.9) H 07/15/22 06:27 Sodium 144 mmol/L (136-145) 07/27/22 04:40 Potassium 3.4 mmol/L (3.5-5.1) L 07/27/22 04:40 BUN 16 mg/dL (7-18) 07/27/22 04:40 Creatinine 0.47 mg/dL (0.70-1.30) L 07/27/22 04:40 Glucose 91 mg/dL (74-106) 07/27/22 04:40 Uric Acid 5.9 mg/dL (3.5-7.2) 07/19/22 05:00 Phosphorus 2.4 mg/dL (2.5-4.9) L 07/27/22 04:40 Magnesium 1.7 mg/dL (1.6-2.4) 07/27/22 04:40 Total Bilirubin 0.6 mg/dL (0.2-1.0) 07/27/22 04:40 AST 42 U/L (15-37) H 07/27/22 04:40 ALT 37 U/L (16-61) 07/27/22 04:40 Alkaline Phosphatase 37 U/L (45-117) L 07/27/22 04:40 Triglycerides 259 mg/dL (<150) H 07/15/22 08:07 Cholesterol 68 mg/dL (<200) 07/15/22 08:07 HDL Cholesterol 8 mg/dL (40-60) L 07/15/22 08:07 Cholesterol/HDL Ratio 8.50 07/15/22 08:07 Home Medications: Albuterol Sulfate [Proair Hfa] 2 puff IH BID PRN 09/22/19 Aspirin [Aspir-Low] 81 mg PO DAILY 09/22/19 Cyclobenzaprine [Flexeril*] 10 mg PO TID PRN 09/22/19 Dolutegravir Sodium [Tivicay] 50 mg PO DAILY 09/22/19 Empagliflozin [Jardiance] 25 mg PO DAILY 09/22/19 Emtricitabine/Tenofov Alafenam [Descovy 200-25 mg Tablet] 1 tab PO DAILY 09/22/19 Fluticasone Propionate [Flovent Diskus] 1 inh IH BID PRN 09/22/19 Furosemide [Lasix*] 40 mg PO DAILY 09/22/19 Glimepiride 1 mg PO BID 09/22/19 Insulin Detemir [Levemir Flextouch] 20 units SQ BID 09/22/19 Metformin HCl 1,000 mg PO BID 09/22/19 Ranitidine [Zantac*] 150 mg PO DAILY PRN 09/22/19 Rosuvastatin Calcium 40 mg PO BEDTIME 09/22/19 Sitagliptin Phosphate [Januvia*] 100 mg PO DAILY 09/22/19 Pantoprazole [Protonix Tab*] 40 mg PO BID #60 tab 05/18/22 Amitriptyline [Elavil*] 50 mg PO BEDTIME 07/15/22 Fenofibrate 160 mg PO DAILY 07/15/22 Spironolactone 25 mg PO DAILY 07/15/22 Docusate [Colace Cap*] 100 mg PO BID cap 07/27/22 Enoxaparin Sodium [Lovenox 40 MG INJ*] 40 mg SQ DAILY syr 07/27/22 Haloperidol Lac [Haldol*] 2 mg IV Q6H PRN vial 07/27/22 Insulin -Regular Human [Novolin -R*] See Protocol SQ ACHS ml 07/27/22 LORazepam [Ativan*] 2 mg IV Q4H PRN vial 07/27/22 Metoprolol Tartrate [Lopressor*] 25 mg PO BID tab 07/27/22 Diet: ADA Activity: Fall precautions Followup: NONE,NONE [Primary Care Provider] -
[2022-07-27 14:30] VITALS: TEMP 98.1
[2022-07-27 17:11] VITALS: BP 127/57
[2022-07-27 18:06] VITALS: O2SAT 94
== END 2022-07-27 16:45 | DRG 870 ==
LOC: ER 22:04 → ERHOLD 07-15 01:38 → 3RD-ICU 07-18 23:32
PROVIDERS: ADMIT Internal Medicine; ATTEND Internal Medicine
PROC: 5A1955Z Respiratory Ventilation, Greater than 96 Consecutive Hours (ICD-10-PCS; principal; 2022-07-17)
PROC: 0BH17EZ Insertion of Endotracheal Airway into Trachea, Via Natural or Artificial Opening (ICD-10-PCS; 2022-07-17)
PROC: XW033E5 Introduction of Remdesivir Anti-infective into Peripheral Vein, Percutaneous Approach, New Technology Group 5 (ICD-10-PCS; 2022-07-18)
PROC: 02HV33Z Insertion of Infusion Device into Superior Vena Cava, Percutaneous Approach (ICD-10-PCS; 2022-07-19)
DX: A41.89 Other specified sepsis (principal); E43 Unspecified severe protein-calorie malnutrition; U07.1 COVID-19; R65.21 Severe sepsis with septic shock; I50.33 Acute on chronic diastolic (congestive) heart failure; J12.89 Other viral pneumonia; G92.8 Other toxic encephalopathy; I46.9 Cardiac arrest, cause unspecified; J96.21 Acute and chronic respiratory failure with hypoxia; I21.A1 Myocardial infarction type 2; J15.9 Unspecified bacterial pneumonia; E87.1 Hypo-osmolality and hyponatremia; N17.9 Acute kidney failure, unspecified; M62.82 Rhabdomyolysis; I47.1 Supraventricular tachycardia; I25.810 Atherosclerosis of coronary artery bypass graft(s) without angina pectoris; I13.0 Hypertensive heart and chronic kidney disease with heart failure and stage 1 through stage 4 chronic kidney disease, or unspecified chronic kidney disease; E87.0 Hyperosmolality and hypernatremia; N18.9 Chronic kidney disease, unspecified; E11.22 Type 2 diabetes mellitus with diabetic chronic kidney disease; E11.65 Type 2 diabetes mellitus with hyperglycemia; E11.649 Type 2 diabetes mellitus with hypoglycemia without coma; E78.5 Hyperlipidemia, unspecified; E87.6 Hypokalemia; E86.1 Hypovolemia; E86.0 Dehydration; I95.1 Orthostatic hypotension; D63.1 Anemia in chronic kidney disease; K76.0 Fatty (change of) liver, not elsewhere classified; E88.09 Other disorders of plasma-protein metabolism, not elsewhere classified; F17.210 Nicotine dependence, cigarettes, uncomplicated; Z78.1 Physical restraint status; Z21 Asymptomatic human immunodeficiency virus [HIV] infection status; Z95.1 Presence of aortocoronary bypass graft; Z79.4 Long term (current) use of insulin; Z68.33 Body mass index [BMI] 33.0-33.9, adult; Z79.82 Long term (current) use of aspirin; Z79.84 Long term (current) use of oral hypoglycemic drugs; Z79.899 Other long term (current) drug therapy; W18.30XA Fall on same level, unspecified, initial encounter; Y93.9 Activity, unspecified; Y92.9 Unspecified place or not applicable
CPT/HCPCS: 0240U; 36415; 36569; 70450; 71045; 71250; 71260; 72125; 74018; 74177; 80048; 80053; 80061; 80069; 80202; 81001; 82043; 82550; 82553; 82570; 82805; 82947; 83036; 83605; 83735; 83880; 84100; 84132; 84145; 84156; 84300; 84443; 84484; 84550; 85025; 85027; 85610; 85652; 85730; 86140; 86361; 87040; 87070; 87086; 87088; 87205; 93005; 93306; 94002; 94003; 94010; 94640; 94760; 99285; J0248; J0330; J0456; J0692; J1100; J1170; J1644; J1650; J1720; J1815; J2185; J2250; J2405; J2704; J2920; J3370; J3411; J3475; J3480; J3486; J7030; J7040; J7042; J7050; J7613; J7644; J7799; Q9967

== ENCOUNTER 2022-10-01 00:34 | Emergency (ER) | payer OTHER ==
--- OUTSIDE RECORDS SUMMARY | 2022-10-01 00:54 | XMS REPORT | Continuity of Care Document ---
:1975 Author Organization [facility] [place] [facility] t Address [address] [place] [address] Care Team Providers Name Role Phone Mohan Figueroa Primary Care Physician [id number] Attending Clinician Unavailable MARCOS ECKERT Attending Clinician Unavailable ROBBY HYDE Attending Clinician Unavailable SHAY GOLDBERG Attending Clinician Unavailable SHAY GOLDBERG Attending Clinician Unavailable Robby Rogers Attending Clinician Doctor Unassigned, [place] Attending Clinician Unavailable CHER PYLE Attending Clinician Unavailable Cher Pyle MD Attending Clinician MOHAN FIGUEROA Attending Clinician Unavailable Marika Zelaya Anavella Attending Clinician Unamallory Cherry MD, Sendil K.[facility]. Attending Clinician JO ANN SENDSADE K.H. Attending Clinician Unavailable [facility] Attending Clinician Unavailable 2, [facility] Attending Clinician Unavailable BRISEIDA RUSSELL Attending Clinician Unavailable Shay Goldberg MD Attending Clinician Alysia FLORENCE, Jj Attending Clinician JJ HATFIELD Attending Clinician Unavailable Canelo Goode MD, Chilvana Attending Clinician ([facility]), Ang-Db Emg/Ncv Testing Attending Clinician Unavailab TIMO Wei Attending Clinician Unavailable FAVIAN SIERRA Attending Clinician Unavailable Only, Adc Test Attending Clinician Unavailable NORMAN PORRAS Attending Clinician Unavailable Yamile FLORENCE, [facility] Attending Clinician [id number] Admitting Clinician Unavailable MARCOS ECKERT Admitting Clinician Unavailable RICO LIM Admitting Clinician Unavailable Josue Zelaya Anav Admitting Clinician Unavailable JJ HATFIELD Admitting Clinician Unavailable SHAY GOLDBERG Admitting Clinician Unavailable Payers Payer Name Policy Type Policy Number Effective Date Expiration Date S adán MEDICARE PART A \T\ [id number] 2017 B 00:00:00 [facility] [id number] 2019 00:00:00 [place]ICAID [place] [id number] 2019 00:00:00 MCR MCR [id number] MISD MISD [id number] Problems Condition Condition Condition Status Onset Resolution Last Treating Co mments Source Name Details Category Date Date Treatment Clinician Date S/P CABG x S/P CABG x Disease Active U nivers 2 2 4-19 ity of 00:00: [place] 00 Medical Branch Obesity Obesity Disease Active Univers (BMI (BMI 4-02 ity of 30-39.9) 30-39.9) 00:00: [place] 00 Medical Branch Coronary Coronary Disease Active Overview: Un chris artery artery 4-02 Formattin ity of disease disease 00:00: g of this [place] involving involving 00 note Medi compa [place] might be Branch coronary coronary different artery of artery of from the [place] original. 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 Medical (HIV) (HIV) Branch disease disease CHF CHF Disease Active Univers (congestiv (congestiv it y of e heart e heart [place] failure) failure) Medica l Branch Hyperlipid Hyperlipid Disease Active U nivers emia emia ity of [place] Medical Branch Allergies, Adverse Reactions, Alerts Allergy Allergy Status Severity Reaction(s) Onset Inactive Treating Comm ents Source Name Type Date Date Clinician NKA Allergy Active ENCCLR 08-22 10:38: 16 NKA Allergy Active [facility] 08-22 10:38: 16 NKA Allergy Active [facility] 08-22 10:38: 16 NO KNOWN Drug Active Univers ALLERGIE Class ity of S [facility] Social History Social Habit Start Date Stop Date Quantity Comments Source History of 1983-08-14 Cigarette Smoker Universi ty of tobacco use 00:00:00 [facility] Exposure to 2022-05-31 2022-06-10 Not sure [facility] SARS-CoV-2 00:00:00 09:30:00 [facility] (event) Branch Alcohol intake 2022-06-10 2022-06-10 .29 /d University of 00:00:00 00:00:00 [facility] Cigarettes smoked 2022-02-28 2022-02-28 Univers ity of current (pack per 00:00:00 [facility] - Reported Branch Cigarette 2022-02-28 2022-02-28 University of pack-years 00:00:00 00:00:00 [facility] Tobacco use and 2022-02-28 2022-02-28 Smokeless tobacco Un iversity of exposure 00:00:00 00:00:00 non-user [facility] History [facility] 2019-05-10 2019-05-10 2 University o f Alcohol Frequency 00:00:00 00:00:00 [facility] [place] [facility] SDSC 2019-05-10 2019-05-10 1 University o f Alcohol Std 00:00:00 00:00:00 [facility] Drinks Branch History SDSC 2019-05-10 2019-05-10 2 University o f Alcohol Binge 00:00:00 00:00:00 [place] [facility] Alcohol Comment 2019-05-10 2019-05-10 Occasionally Univers ity of 00:00:00 00:00:00 [facility] Sex [birth year] Universit y of 00:00:00 00:00:00 [facility] Smoking Status Start Date Stop Date Source Smokes tobacco daily 2022-02-28 00:00:00 Univers ity of [facility] Medications Ordered Filled Start Stop Current Ordering Indication Dosage Frequency Signature Comments Components Source Medication Medication Date Date Medication? Clinician (SIG) Name Name ROSANNA 1 Yes [id number] 2g Take 2 Un chris gram 1-23 capsules ity of capsule 00:00: by mouth [place] 00 in the Medical morning Branch and 2 capsules in the evening. VASCEPA 1 2022-0 Yes [id number] 2g Take 2 Un ch[place] gram 1-23 capsules ity of capsule 00:00: by mouth [place] 00 in the Medical morning Branch and 2 capsules in the evening. VASCEPA 1 2022-0 Yes [id number] 2g Take 2 Un ch[place] gram 1-23 capsules ity of capsule 00:00: by mouth [place] 00 in the Medical morning Branch and 2 capsules in the evening. SPIRONOLACT 2021-08 Yes [id number] TAKE 1 Univers ONE 25 mg 2-29 TABLET BY ity o f tablet 00:00: MOUTH [place] 00 EVERY DAY Medical Branch SPIRONOLACT 2021-08 Yes [id number] TAKE 1 Univers ONE 25 mg 2-29 TABLET BY ity o f tablet 00:00: MOUTH [place] 00 EVERY DAY Medical Branch SPIRONOLACT 2021-08 Yes [id number] TAKE 1 Univers ONE 25 mg 2-29 TABLET BY ity o f tablet 00:00: MOUTH [place] 00 EVERY DAY Medical Branch SPIRONOLACT 2021-08 Yes [id number] TAKE 1 Univers ONE 25 mg 2-29 TABLET BY ity o f tablet 00:00: MOUTH [place] 00 EVERY DAY Medical Branch SPIRONOLACT 2021-08 Yes [id number] TAKE 1 Univers ONE 25 mg 2-29 TABLET BY ity o f tablet 00:00: MOUTH [place] 00 EVERY DAY Medical Branch SPIRONOLACT 2021-08 Yes [id number] TAKE 1 Univers ONE 25 mg 2-29 TABLET BY ity o f tablet 00:00: MOUTH [place] 00 EVERY DAY Medical Branch ALBUTEROL 2021-08 No HFA 90 MCG 1-29 INHALER 00:00: 00 TAKE 1 2021-08 No [...] UNIT/ML 00:00: 00 TIVICAY 50 2021-08 Yes [id number] 1 po once Univers mg tablet 0-28 daily ity of 00:00: [address] DESCOVY 2021-08 Yes [id number] 1 po once U nivers tablet 0-28 daily ity of 00:00: [address] TIVIC 50 2021-08 Yes [id number] 1 po once Univers mg tablet 0-28 daily ity of 00:00: [address] DESCOVY 2021-08 Yes [id number] 1 po once U nivers tablet 0-28 daily ity of 00:00: [address] TIVICAY 50 2021-08 Yes [id number] 1 po once Univers mg tablet 0-28 daily ity of 00:00: [address] DESCOVY 2021-08 Yes [id number] 1 po once U nivers tablet 0-28 daily ity of 00:00: [address] TIVICAY 50 2021-08 Yes [id number] 1 po once Univers mg tablet 0-28 daily ity of 00:00: [address] DESCOVY 2021-08 Yes [id number] 1 po once U nivers tablet 0-28 daily ity of 00:00: [address] TIVIC 50 2021-08 Yes [id number] 1 po once Univers mg tablet 0-28 daily ity of 00:00: [address] DESCOVY 2021-08 Yes [id number] 1 po once U nivers tablet 0-28 daily ity of 00:00: [facility] TIVICAY 50 2021-08 Yes [id number] 1 po once Univers mg tablet 0-28 daily ity of 00:00: [facility] DESCOVY 2021-08 Yes [id number] 1 po once U nivers tablet 0-28 daily ity of 00:00: [place] [facility] TIVICAY 50 2021-08 Yes [id number] 1 po once Univers mg tablet 0-28 daily ity of 00:00: [facility] DESCOVY 2021-08 Yes [id number] 1 po once U nivers tablet 0-28 daily ity of 00:00: [place] [facility] TIVICAY 50 2021-08 Yes [id number] 1 po once Univers mg tablet 0-28 daily ity of 00:00: [place] [facility] DESCOVY 2021-08 Yes [id number] 1 po once U nivers tablet 0-28 daily ity of 00:00: [address] TIVICAY 50 2021-08 Yes [id number] 1 po once Univers mg tablet 0-28 daily ity of 00:00: [facility] DESCOVY 2021-08 Yes [id number] 1 po once U nivers tablet 0-28 daily ity of 00:00: [address] Branch TIVICAY 50 2021-08 Yes [id number] 1 po once Univers mg tablet 0-28 daily ity of 00:00: [facility] DESCOVY 2021-08 Yes [id number] 1 po once U nivers tablet 0-28 daily ity of 00:00: [address] TIVICAY 50 2021-08 Yes [id number] 1 po once Univers mg tablet 0-28 daily ity of 00:00: [facility] DESCOVY 2021-08 Yes [id number] 1 po once U nivers tablet 0-28 daily ity of 00:00: [address] TIVICAY 50 2021-08 Yes [id number] 1 po once Univers mg tablet 0-28 daily ity of 00:00: [address] Branch DESCOVY 2021-08 Yes [id number] 1 po once U nivers tablet 0-28 daily ity of 00:00: [address] TIVICAY 50 2021-08 Yes [id number] 1 po once Univers mg tablet 0-28 daily ity of 00:00: [address] DESCOVY 2021-08 Yes [id number] 1 po once U nivers tablet 0-28 daily ity of 00:: [address] PANTOPRAZOL 2021-[address] 40 0-24 MG TAB 00:00: PANTOPRAZOL 2021-[address] 40 0-24 MG TAB 00:00: 00 PANTOPRAZOL 2021-[address] 40 0-24 MG TAB 00:00: 00 icosapent 2021-08 Yes [id number] 2g Take 2 Un chris ethyL 0-24 capsules ity of (VASCEPA) 1 00:00: by mouth [place] gram 00 in the Medical capsule morning Branch and 2 capsules in the evening. icosapent 2021-08 Yes [id number] 2g Take 2 Un ch[place] ethyL 0-24 capsules ity of (VASCEPA) 1 00:00: by mouth [place] gram 00 in the Medical capsule morning Branch and 2 capsules in the evening. icosapent 2021-08 Yes [id number] 2g Take 2 Un [place] ethyL 0-24 capsules ity of (VASCEPA) 1 00:00: by mouth [place] gram 00 in the Medical capsule morning Branch and 2 capsules in the evening. icosapent 2021-08 Yes [id number] 2g Take 2 Un [place] ethyL 0-24 capsules ity of (VASCEPA) 1 00:00: by mouth [place] gram 00 in the Medical capsule morning Branch and 2 capsules in the evening. icosapent 2021-08 Yes [id number] 2g Take 2 Un ch[place] ethyL 0-24 capsules ity of (VASCEPA) 1 00:00: by mouth [place] gram 00 in the Medical capsule morning Branch and 2 capsules in the evening. icosapent 2021-08 Yes [id number] 2g Take 2 [place] ethyL 0-24 capsules ity of (VASCEPA) 1 00:00: by mouth [place] gram 00 in the Medical capsule morning Branch and 2 capsules in the evening. icosapent 2021-08 Yes [id number] 2g Take 2 [place] ethyL 0-24 capsules ity of (VASCEPA) 1 00:00: by mouth [place] gram 00 in the Medical capsule morning Branch and 2 capsules in the evening. icosapent 2021-08 Yes [id number] 2g Take 2 [place] ethyL 0-24 capsules ity of (VASCEPA) 1 00:00: by mouth [place] gram 00 in the Medical capsule morning Branch and 2 capsules in the evening. icosapent 2021-08 Yes [id number] 2g Take 2 [place] ethyL 0-24 capsules ity of (VASCEPA) 1 00:00: by mouth [place] gram 00 in the Medical capsule morning Branch and 2 capsules in the evening. icosapent 2021-08 Yes [id number] 2g Take 2 [place] ethyL 0-24 capsules ity of (VASCEPA) 1 00:00: by mouth [place] gram 00 in the Medical capsule morning Branch and 2 capsules in the evening. icosapent 2021-08- No [id number] 2g Take 2 U nivers ethyL 0-24 01-23 capsules ity of (VASCEPA) 1 00:00: 00:00 by mouth [place] gram 00 :00 in the Medical capsule morning Branch and 2 capsules in the evening. icosapent 2021-08- No [id number] 2g Take 2 U nivers ethyL 0-24 01-23 capsules ity of (VASCEPA) 1 00:00: 00:00 by mouth [place] gram 00 :00 in the Medical capsule morning Branch and 2 capsules in the evening. icosapent 2021-08- No [id number] 2g Take 2 U nivers ethyL 0-24 01-23 capsules ity of (VASCEPA) 1 00:00: 00:00 by mouth [place] gram 00 :00 in the Medical capsule morning Branch and 2 capsules in the evening. spironolact 2021-0 Yes [id number] 25mg Take 1 Univers one 25 mg 9-29 tablet by ity o f tablet 00:00: mouth in [place] the Medical morning. Branch spironolact 2021-0 Yes [id number] 25mg Take 1 Univers one 25 mg 9-29 tablet by ity o f tablet 00:00: mouth in [place] the Medical morning. Branch spironolact 2021-0 Yes [id number] 25mg Take 1 Univers one 25 mg 9-29 tablet by ity o f tablet 00:00: mouth in [place] the Medical morning. Branch spironolact 2021-0 Yes [id number] 25mg Take 1 Univers one 25 mg 9-29 tablet by ity o f tablet 00:00: mouth in [place] 00 the Medical morning. Branch spironolact 2021-0 Yes [id number] 25mg Take 1 Univers one 25 mg 9-29 tablet by ity o f tablet 00:00: mouth in [place] 00 the Medical morning. Branch spironolact 2021-0 Yes [id number] 25mg Take 1 Univers one 25 mg 9-29 tablet by ity o f tablet 00:00: mouth in [place] 00 the Medical morning. Branch spironolact 2021-0 Yes [id number] 25mg Take 1 Univers one 25 mg 9-29 tablet by ity o f tablet 00:00: mouth in [place] the Medical morning. Branch spironolact 2021-0 Yes [id number] 25mg Take 1 Univers one 25 mg 9-29 tablet by ity o f tablet 00:00: mouth in [place] the Medical morning. Branch spironolact 2021-0 Yes [id number] 25mg Take 1 Univers one 25 mg 9-29 tablet by ity o f tablet 00:00: mouth in [place] the Medical morning. Branch spironolact 2021-0 Yes [id number] 25mg Take 1 Univers one 25 mg 9-29 tablet by ity o f tablet 00:00: mouth in [place] the Medical morning. Branch spironolact 2021-0 Yes [id number] 25mg Take 1 Univers one 25 mg 9-29 tablet by ity o f tablet 00:00: mouth in [place] the Medical morning. Branch spironolact 2021-0 Yes [id number] 25mg Take 1 Univers one 25 mg 9-29 tablet by ity o f tablet 00:00: mouth in [place] the Medical morning. Branch spironolact 2021-0 Yes [id number] 25mg Take 1 Univers one 25 mg 9-29 tablet by ity o f tablet 00:00: mouth in [place] 00 the Medical morning. Branch spironolact 2021-0 Yes [id number] 25mg Take 1 Univers one 25 mg 9-29 tablet by ity o f tablet 00:00: mouth in [place] 00 the Medical morning. Branch spironolact 2021-0 Yes [id number] 25mg Take 1 Univers one 25 mg 9-29 tablet by ity o f tablet 00:00: mouth in [place] 00 the Medical morning. Branch spironolact 2021- No [id number] 25mg Take 1 Univers one 25 mg 9-29 12-29 tablet by ity of tablet 00:00: 00:00 mouth in [place] 00 :00 the Medical morning. Branch spironolact 2021- No [id number] 25mg Take 1 Univers one 25 mg 9-29 12-29 tablet by ity of tablet 00:00: 00:00 mouth in [place] 00 :00 the Medical morning. Branch spironolact 2021- No [id number] 25mg Take 1 Univers one 25 mg 9-29 12-29 tablet by ity of tablet 00:00: 00:00 mouth in [place] 00 :00 the Medical morning. Branch spironolact 2021- No [id number] 25mg Take 1 Univers one 25 mg 9-29 12-29 tablet by ity of tablet 00:00: 00:00 mouth in [place] 00 :00 the Medical morning. Branch PROMETHAZIN 2021-0 No E 25 MG 8-24 TABLET 00:00: 00 PROMETHAZIN 2021-0 No E 25 MG 8-24 TABLET 00:00: 00 PROMETHAZIN 2-0 No E 25 MG 8-24 TABLET 00:00: 00 metoprolol 2021-0 Yes [id number] TAKE 1 Univers succinate 8-12 TABLET BY ity o f XL 50 mg 24 00:00: MOUTH [place] hr tablet 00 TWICE A Medical DAY (NEED Branch APPOINTMEN T FOR FURTHER REFILLS) metoprolol 2021-0 Yes [id number] TAKE 1 Univers succinate 8-12 TABLET BY ity o f XL 50 mg 24 00:00: MOUTH [place] hr tablet 00 TWICE A Medical DAY (NEED Branch APPOINTMEN T FOR FURTHER REFILLS) metoprolol 2021-0 Yes [id number] TAKE 1 Univers succinate 8-12 TABLET BY ity o f XL 50 mg 24 00:00: MOUTH [place] hr tablet 00 TWICE A Medical DAY (NEED Branch APPOINTMEN T FOR FURTHER REFILLS) metoprolol 2021-0 Yes [id number] TAKE 1 Univers succinate 8-12 TABLET BY ity o f XL 50 mg 24 00:00: MOUTH [place] hr tablet 00 TWICE A Medical DAY (NEED Branch APPOINTMEN T FOR FURTHER REFILLS) metoprolol Yes [id number] TAKE 1 Univers succinate 8-12 TABLET BY ity o f XL 50 mg 24 00:00: MOUTH [place] hr tablet 00 TWICE A Medical DAY (NEED Branch APPOINTMEN T FOR FURTHER REFILLS) metoprolol Yes [id number] TAKE 1 Univers succinate 8-12 TABLET BY ity o f XL 50 mg 24 00:00: MOUTH [place] hr tablet 00 TWICE A Medical DAY (NEED Branch APPOINTMEN T FOR FURTHER REFILLS) metoprolol Yes [id number] TAKE 1 Univers succinate 8-12 TABLET BY ity o f XL 50 mg 24 00:00: MOUTH [place] hr tablet 00 TWICE A Medical DAY (NEED Branch APPOINTMEN T FOR FURTHER REFILLS) metoprolol Yes [id number] TAKE 1 Univers succinate 8-12 TABLET BY ity o f XL 50 mg 24 00:00: MOUTH [place] hr tablet 00 TWICE A Medical DAY (NEED Branch APPOINTMEN T FOR FURTHER REFILLS) metoprolol Yes [id number] TAKE 1 Univers succinate 8-12 TABLET BY ity o f XL 50 mg 24 00:00: MOUTH [place] hr tablet 00 TWICE A Medical DAY (NEED Branch APPOINTMEN T FOR FURTHER REFILLS) metoprolol Yes [id number] TAKE 1 Univers succinate 8-12 TABLET BY ity o f XL 50 mg 24 00:00: MOUTH [place] hr tablet 00 TWICE A Medical DAY (NEED Branch APPOINTMEN T FOR FURTHER REFILLS) metoprolol Yes [id number] TAKE 1 Univers succinate 8-12 TABLET BY ity o f XL 50 mg 24 00:00: MOUTH [place] hr tablet 00 TWICE A Medical DAY (NEED Branch APPOINTMEN T FOR FURTHER REFILLS) metoprolol Yes [id number] TAKE 1 Univers succinate 8-12 TABLET BY ity o f XL 50 mg 24 00:00: MOUTH [place] hr tablet 00 TWICE A Medical DAY (NEED Branch APPOINTMEN T FOR FURTHER REFILLS) metoprolol Yes [id number] TAKE 1 Univers succinate 8-12 TABLET BY ity o f XL 50 mg 24 00:00: MOUTH [place] hr tablet 00 TWICE A Medical DAY (NEED Branch APPOINTMEN T FOR FURTHER REFILLS) metoprolol Yes [id number] TAKE 1 Univers succinate 8-12 TABLET BY ity o f XL 50 mg 24 00:00: MOUTH [place] hr tablet 00 TWICE A Medical DAY (NEED Branch APPOINTMEN T FOR FURTHER REFILLS) metoprolol Yes [id number] TAKE 1 Univers succinate 8-12 TABLET BY ity o f XL 50 mg 24 00:00: MOUTH [place] hr tablet 00 TWICE A Medical DAY (NEED Branch APPOINTMEN T FOR FURTHER REFILLS) metoprolol Yes [id number] TAKE 1 Univers succinate 8-12 TABLET BY ity o f XL 50 mg 24 00:00: MOUTH [place] hr tablet 00 TWICE A Medical DAY (NEED Branch APPOINTMEN T FOR FURTHER REFILLS) metoprolol Yes [id number] TAKE 1 Univers succinate 8-12 TABLET BY ity o f XL 50 mg 24 00:00: MOUTH [place] hr tablet 00 TWICE A Medical DAY (NEED Branch APPOINTMEN T FOR FURTHER REFILLS) metoprolol Yes [id number] TAKE 1 Univers succinate 8-12 TABLET BY ity o f XL 50 mg 24 00:00: MOUTH [place] hr tablet 00 TWICE A Medical DAY (NEED Branch APPOINTMEN T FOR FURTHER REFILLS) metoprolol Yes [id number] TAKE 1 Univers succinate 8-12 TABLET BY ity o f XL 50 mg 24 00:00: MOUTH [place] hr tablet 00 TWICE A Medical DAY (NEED Branch APPOINTMEN T FOR FURTHER REFILLS) metoprolol Yes [id number] TAKE 1 Univers succinate 8-12 TABLET BY ity o f XL 50 mg 24 00:00: MOUTH [place] hr tablet 00 TWICE A Medical DAY (NEED Branch APPOINTMEN T FOR FURTHER REFILLS) metoprolol Yes [id number] TAKE 1 Univers succinate 8-12 TABLET BY ity o f XL 50 mg 24 00:00: MOUTH [place] hr tablet 00 TWICE A Medical DAY (NEED Branch APPOINTMEN T FOR FURTHER REFILLS) metoprolol Yes [id number] TAKE 1 Univers succinate 8-12 TABLET BY ity o f XL 50 mg 24 00:00: MOUTH [place] hr tablet 00 TWICE A Medical DAY (NEED Branch APPOINTMEN T FOR FURTHER REFILLS) metoprolol Yes [id number] TAKE 1 Univers succinate 8-12 TABLET BY ity o f XL 50 mg 24 00:00: MOUTH [place] hr tablet 00 TWICE A Medical DAY (NEED Branch APPOINTMEN T FOR FURTHER REFILLS) metoprolol Yes [id number] TAKE 1 Univers succinate 8-12 TABLET BY ity o f XL 50 mg 24 00:00: MOUTH [place] hr tablet 00 TWICE A Medical DAY (NEED Branch APPOINTMEN T FOR FURTHER REFILLS) metoprolol 2021-0 Yes [id number] TAKE 1 Univers succinate 8-12 TABLET BY ity o f XL 50 mg 24 00:00: MOUTH [place] hr tablet 00 TWICE A Medical DAY (NEED Branch APPOINTMEN T FOR FURTHER REFILLS) metoprolol 0 Yes [id number] TAKE 1 Univers succinate 8-12 TABLET BY ity o f XL 50 mg 24 00:00: MOUTH [place] hr tablet 00 TWICE A Medical DAY (NEED Branch APPOINTMEN T FOR FURTHER REFILLS) metoprolol Yes [id number] TAKE 1 Univers succinate 8-12 TABLET BY ity o f XL 50 mg 24 00:00: MOUTH [place] hr tablet 00 TWICE A Medical DAY (NEED Branch APPOINTMEN T FOR FURTHER REFILLS) metoprolol Yes [id number] TAKE BY Univers succinate 7-15 MOUTH 1 ity of XL 50 mg 24 00:00: TABLET 2 [place] hr tablet 00 TIMES A Medical DAY (PLEAS Branch NOTE TABLET DOSE CHANGE) NEED TO CALL OFFICE FOR REFIL metoprolol 2021- No [id number] TAKE BY Univers succinate 7-15 08-12 MOUTH 1 ity of XL 50 mg 24 00:00: 00:00 TABLET 2 [place] hr tablet 00 :00 TIMES A Medical DAY (PLE Branch NOTE TABLET DOSE CHANGE) NEED TO [...] 00 on nasal spray,suspe nsion aspirin 81 0 No 1mg mg 5-12 tablet,agus 00:00: yed release 00 Flonase 2021-0 No 2mcg/ac Allergy 5-12 tuation Relief 50 00:00: mcg/actuati 00 on nasal spray,suspe nsion Dose 2021-0 No Unknown 5-10 00:00: 00 Levemir 2-0 No (3 mL) FlexTouch 5-10 U-100 00:00: [...] 25 mg 5-10 tablet 00:00: 00 gabapentin 2-0 No 1mg 600 mg 5-10 tablet 00:00: [...] 00:00: iron) 00 tablet,agus yed release Dose 2021-0 No Unknown 5-10 00:00: 00 Levemir 2-0 No (3 mL) FlexTouch 5-10 U-100 00:00: [...] 00:00: Insulin 100 00 unit/mL (3 [facility] [place] 200 2-0 No 1mg [...] 2-0 No Unknown 4-19 00:00: 00 Dose 2022-0 No Unknown 4-19 00:00: 00 Dose 2-0 No Unknown 4-19 00:00: 00 Dose 2-0 No Unknown 4-19 00:00: 00 Dose 2-0 No Unknown 4-19 00:00: 00 Dose 2022-0 No Unknown 4-19 00:00: 00 Dose 2-0 No Unknown 4-17 00:00: 00 Dose 2-0 No Unknown 4-17 00:00: 00 Dose 2-0 No Unknown 4-17 00:00: 00 amoxicillin 2022-0 No 1mg 875 mg 4-16 tablet 00:00: 00 amoxicillin 2022-0 No 1mg 875 mg 4-16 tablet 00:00: 00 amoxicillin 2022-0 No 1mg 875 mg 4-16 tablet 00:00: 00 Dose 2022-0 No Unknown 3-31 00:00: 00 Dose 2022-0 No Unknown 3-31 00:00: 00 Dose 2-0 No Unknown 3-31 00:00: 00 Dose 2022-0 No Unknown 3-31 00:00: 00 Dose 2022-0 No Unknown 3-31 00:00: 00 Dose 2-0 No Unknown 3-31 00:00: 00 Dose 2022-0 No Unknown 3-29 00:00: 00 Dose 2022-0 No Unknown 3-29 00:00: 00 Dose 2-0 No Unknown 3-29 00:00: 00 Dose 2022-0 No Unknown 3-29 00:00: 00 Dose 2022-0 No Unknown 3-29 00:00: 00 Dose 2-0 No Unknown 3-29 00:00: 00 spironolact 2022-0 Yes [id number] 25mg Take 1 Univers one 25 mg 3-09 tablet by ity o f tablet 00:00: mouth [place] [address] [facility] spironolact 2021-0 Yes [id number] 25mg Take 1 Univers one 25 mg 3-09 tablet by ity o f tablet 00:00: mouth [place] [address] [facility] spironolact 2021-0 Yes [id number] 25mg Take 1 Univers one 25 mg 3-09 tablet by ity o f tablet 00:00: mouth [place] [address] [facility] spironolact 2021-0 Yes [id number] 25mg Take 1 Univers one 25 mg 3-09 tablet by ity o f tablet 00:00: mouth [place] [address] [facility] spironolact 2021- No [id number] 25mg Take 1 Univers one 25 mg 3-09 -29 tablet by ity of tablet 00:00: 00:00 mouth [place] 00 :[address] [facility] Dose 2-0 No Unknown 3-03 00:00: 00 [...] (3 mL) subcutaneou s pen Descovy 200 2020- No 1mg mg-25 mg 1-16 tablet 00:00: 00 spironolact 2020-1 No 5mg one 25 mg 1-16 tablet 00:00: 00 Januvia 100 2020- No 1mg mg tablet -16 00:00: 00 furosemide 2020-1 No 1mg 40 mg 1-16 tablet 00:00: 00 Protonix 40 2020- No 1mg mg 1-16 tablet,agsu 00:00: yed release 00 Jardiance 2020- No 1mg 25 mg 1-16 tablet 00:00: 00 lisinopril 2020-1 No 1mg 5 mg tablet 1-16 00:00: 00 metoprolol 2020-1 No mg succinate 1-16 ER 25 mg 00:00: tablet,exte 00 nded release 24 hr gabapentin 2020- No 1mg 600 mg 1-16 tablet 00:00: 00 glimepiride 2020-1 No 1mg 1 mg tablet 1-16 00:00: 00 metformin 2020-1 No 1mg 1,000 mg 1-16 tablet 00:00: 00 Tivicay 50 2020-1 No 1mg mg tablet 1-16 00:00: 00 rosuvastati 2020-1 No 1mg n 40 mg 1-16 tablet 00:00: 00 cyclobenzap 2020- No 1mg rine 10 mg 1-16 tablet 00:00: 00 mirtazapine 2020-08 No 1mg 30 mg 1-16 tablet 00:00: 00 promethazin 2020-08 No 1mg e 25 mg 1-16 tablet 00:00: 00 ferrous 2020-08 No 1(65 mg sulfate 325 -16 iron) mg (65 mg 00:00: iron) 00 tablet,agus yed release ProAir HFA 2020-08 No 12mcg/a 90 -16 ctuatio mcg/actuati 00:00: n on aerosol 00 [...] ferrous 2020-08 No 1(65 mg sulfate 325 -16 iron) mg (65 mg 00:00: iron) 00 tablet,agus yed release ProAir HFA 2020-08 No 12mcg/a 90 -16 ctuatio mcg/actuati 00:00: n on aerosol 00 [...] 00:00: 00 metoprolol 2020-08 No mg succinate -16 ER 25 mg 00:00: tablet,exte 00 nded release 24 hr gabapentin 2020-08 No 1mg 600 mg 1-16 tablet 00:00: 00 glimepiride 2020-08 No 1mg 1 mg tablet 16 00:00: 00 metformin 2020-08 No 1mg 1,000 mg 1-16 tablet 00:00: [...] unit/mL (3 mL) subcutaneou s pen Levemir 2020-08 No (3 mL) FlexTouch 1-03 U-100 00:00: Insulin 100 00 unit/mL (3 mL) subcutaneou s pen Levemir 2020-08 No (3 mL) FlexTouch 1-03 U-100 00:00: Insulin 100 00 unit/mL (3 mL) subcutaneou s pen Descovy 200 2020-0 No 1mg mg-25 mg 9-30 tablet 00:00: 00 Tivicay 50 2020-0 No 1mg mg tablet 05-13 00:00: 00 ferrous 2020-0 No 1(65 mg sulfate 325 9-30 iron) mg (65 mg 00:00: iron) 00 tablet,agus yed release Descovy 200 2020-0 No 1mg mg-25 mg 9-30 tablet 00:00: 00 Tivicay 50 2020-0 No 1mg mg tablet 05-13 00:00: 00 [...] tablet,exte 00 nded release 24 hr Dose 2021-0 No Unknown 7-21 00:00: 00 promethazin 2021-0 No 1mg e 25 mg 7-21 tablet 00:00: 00 Dose 2021-0 No Unknown 7-21 00:00: 00 promethazin 2021-0 No 1mg e 25 mg 7-21 tablet 00:00: 00 Dose 2021-0 No Unknown 7-21 00:00: 00 promethazin 2021-0 No 1mg e 25 mg 7-21 tablet 00:00: 00 TIVICAY 50 1-0 Yes [facility] mg tablet 7-12 ity of 00:00: [address] DESCOVY 1-0 Yes Univers tablet 7-12 ity of 00:00: [address] TIVICAY 50 1-0 Yes [facility] mg tablet 7-12 ity of 00:00: [address] DESCOVY 2021-0 Yes [facility] tablet 7-12 ity of 00:00: [address] TIVICAY 50 1-0 Yes [facility] mg tablet 7-12 ity of 00:00: [address] DESCOVY 1-0 Yes [facility] tablet 7-12 ity of 00:00: [address] TIVICAY 50 2020-0 Yes [facility] mg tablet 7-12 ity of 00:00: [place] [facility] DESCOVY 2020-0 Yes [facility] tablet 7-12 ity of 00:00: [place] 00 [facility] TIVICAY 50 2020-0 Yes [facility] mg tablet 7-12 ity of 00:00: [place] [facility] DESCOVY 2020-0 Yes [facility] tablet 7-12 ity of 00:00: [place] [facility] TIVICAY 50 2020-0 Yes [facility] mg tablet 7-12 ity of 00:00: [place] [facility] DESCOVY 2020-0 Yes [facility] tablet 7-12 ity of 00:00: [place] [facility] TIVICAY 50 2020-0 Yes [facility] mg tablet 7-12 ity of 00:00: [place] [address] [facility] DESCOVY 2020-0 Yes [facility] tablet 7-12 ity of 00:00: [place] [facility] TIVICAY 50 2020-0 Yes [facility] mg tablet 7-12 ity of 00:00: [place] [address] [facility] DESCOVY 2020-0 Yes [facility] tablet 7-12 ity of 00:00: [place] [facility] TIVICAY 50 2020-0 Yes [facility] mg tablet 7-12 ity of 00:00: [place] [address] [facility] DESCOVY 2020-0 Yes [facility] tablet 7-12 ity of 00:00: [place] [address] [facility] TIVICAY 50 2020-0 Yes [facility] mg tablet 7-12 ity of 00:00: [place] [facility] DESCOVY 2020-0 Yes [facility] tablet 7-12 ity of 00:00: [place] [facility] TIVICAY 50 2020-0 Yes [facility] mg tablet 7-12 ity of 00:00: [place] [facility] DESCOVY 2020-0 Yes [facility] tablet 7-12 ity of 00:00: [place] 00 [facility] TIVICAY 50 2020-0 Yes [facility] mg tablet 7-12 ity of 00:00: [place] [address] [facility] DESCOVY 2020-0 Yes [facility] tablet 7-12 ity of 00:00: [place] [facility] TIVICAY 50 2020-0 Yes [facility] mg tablet 7-12 ity of 00:00: [place] [address] [facility] DESCOVY 2020-0 Yes [facility] tablet 7-12 ity of 00:00: [place] [facility] TIVICAY 50 2020-0 Yes [facility] mg tablet 7-12 ity of 00:00: [place] 00 [facility] DESCOVY 2021-0 Yes [facility] tablet 02-22 ity of 00:00: [place] 00 [facility] TIVICAY 50 2020-0 2021- No Univer s mg tablet 02-22 ity of 00:00: 00:00 [place] 00 :00 [facility] DESCOVY 2020-0 2- No [facility] tablet 02-22 ity of 00:00: 00:00 [place] 00 :00 [facility] TIVICAY 50 2020-0 2- No Univer s mg tablet 02-22 ity of 00:00: 00:00 [place] 00 :00 [facility] DESCOVY 2020-0 2021- No [facility] tablet 02-22 ity of 00:00: 00:00 [place] 00 :00 [facility] TIVICAY 50 2020-0 2021- No Univer s mg tablet 02-22 ity of 00:00: 00:00 [place] 00 :00 [facility] DESCOVY 2020-0 2021- No [facility] tablet 02-22 ity of 00:00: 00:00 [place] 00 :00 [facility] LEVEMIR 2021-0 Yes [facility] FLEXTOUCH [...] Medical unit/mL (3 Branch mL) injection metoprolol 2020-0 No mg succinate 6-28 ER 25 mg 00:00: tablet,exte 00 nded release 24 hr metoprolol 2020-0 No mg succinate 6-28 ER 25 mg 00:00: tablet,exte 00 nded release 24 hr metoprolol 2020-0 No mg succinate 6-28 ER 25 mg 00:00: tablet,exte 00 nded release 24 hr ferrous 2020-0 No 1(65 mg sulfate 325 6-26 iron) mg (65 mg 00:00: iron) 00 tablet,agus yed release ferrous 2021-0 No 1(65 mg sulfate 325 6-26 iron) mg (65 mg 00:00: iron) 00 tablet,agus yed release ferrous 0 No 1(65 mg sulfate 325 6-26 iron) mg (65 mg 00:00: iron) 00 tablet,agus yed release gabapentin Yes [facility] 600 mg 6-24 ity of tablet 00:00: [place] [facility] JARDIANCE 0 Yes [facility] 25 mg Tab 6-24 ity of 00:00: [place] [facility] glimepiride 0 Yes Univer s 1 mg tablet 6-24 ity of 00:00: [place] [facility] metFORMIN 2020-0 Yes [facility] 1,000 mg 6-24 ity of tablet 00:00: [place] [facility] rosuvastati 0 Yes 40mg Take 40 mg Univers n 40 mg 6-24 by mouth ity of tablet 00:00: at [place] [address] bedtime. [facility] JANUVIA 100 0 Yes Univer s mg tablet 6-24 ity of 00:00: [place] [address] [facility] furosemide 2020-0 Yes 40mg Take 40 mg U nivers 40 mg 6-24 by mouth ity of tablet 00:00: daily. [place] [address] [facility] gabapentin 2020-0 Yes [facility] 600 mg 6-24 ity of tablet 00:00: [place] [facility] JARDIANCE 0 Yes [facility] 25 mg Tab 6-24 ity of 00:00: [place] [facility] glimepiride 2020-0 Yes Univer s 1 mg tablet 6-24 ity of 00:00: [place] [facility] metFORMIN 2020-0 Yes [facility] 1,000 mg 6-24 ity of tablet 00:00: [place] [address] [facility] rosuvastati 0 Yes 40mg Take 40 mg [facility] n 40 mg 6-24 by mouth ity of tablet 00:00: at [place] [address] bedtime. [facility] JANUVIA 100 0 Yes Univer s mg tablet 6-24 ity of 00:00: [place] [address] [facility] furosemide 2020-0 Yes 40mg Take 40 mg U nivers 40 mg 6-24 by mouth ity of tablet 00:00: daily. [place] [address] [facility] gabapentin 2020-0 Yes [facility] 600 mg 6-24 ity of tablet 00:00: [place] [address] [facility] JARDIANCE 2020-0 Yes [facility] 25 mg Tab 6-24 ity of 00:00: [place] [facility] glimepiride 2020-0 Yes Univer s 1 mg tablet 6-24 ity of 00:00: [place] [facility] metFORMIN 2020-0 Yes [facility] 1,000 mg 6-24 ity of tablet 00:00: [place] [facility] rosuvastati 2020-0 Yes 40mg Take 40 mg [facility] n 40 mg 6-24 by mouth ity of tablet 00:00: at [place] [address] bedtime. [facility] JANUVIA 100 2020-0 Yes Univer s mg tablet 6-24 ity of 00:00: [place] [facility] furosemide 2020-0 Yes 40mg Take 40 mg U nivers 40 mg 6-24 by mouth ity of tablet 00:00: daily. [place] [address] [facility] gabapentin 2020-0 Yes [facility] 600 mg 6-24 ity of tablet 00:00: [place] [address] [facility] JARDIANCE 2020-0 Yes [facility] 25 mg Tab 6-24 ity of 00:00: [place] [facility] glimepiride 2020-0 Yes Univer s 1 mg tablet 6-24 ity of 00:00: [place] [address] [facility] metFORMIN 2020-0 Yes [facility] 1,000 mg 6-24 ity of tablet 00:00: [place] [address] [facility] rosuvastati 2020-0 Yes 40mg Take 40 mg [facility] n 40 mg 6-24 by mouth ity of tablet 00:00: at [place] [address] bedtime. [facility] JANIA 100 2020-0 Yes Univer s mg tablet 6-24 ity of 00:00: [place] [facility] furosemide 2020-0 Yes 40mg Take 40 mg U nivers 40 mg 6-24 by mouth ity of tablet 00:00: daily. [place] [address] [facility] gabapentin 2020-0 Yes [facility] 600 mg 6-24 ity of tablet 00:00: [place] [facility] JARDIANCE 2020-0 Yes [facility] 25 mg Tab 6-24 ity of 00:00: [place] [address] [facility] glimepiride 2020-0 Yes Univer s 1 mg tablet 6-24 ity of 00:00: [place] [address] [facility] metFORMIN 2020-0 Yes [facility] 1,000 mg 6-24 ity of tablet 00:00: [place] [address] [facility] rosuvastati 2020-0 Yes 40mg Take 40 mg [facility] n 40 mg 6-24 by mouth ity of tablet 00:00: at [place] [address] bedtime. [facility] JANUVIA 100 2020-0 Yes Univer s mg tablet 6-24 ity of 00:00: [place] [facility] furosemide 2020-0 Yes 40mg Take 40 mg U nivers 40 mg 6-24 by mouth ity of tablet 00:00: daily. [place] [facility] gabapentin 2020-0 Yes [facility] 600 mg 6-24 ity of tablet 00:00: [place] [facility] JARDIANCE 2020-0 Yes [facility] 25 mg Tab 6-24 ity of 00:00: [place] [facility] glimepiride 2020-0 Yes Univer s 1 mg tablet 6-24 ity of 00:00: [place] [address] [facility] metFORMIN 2020-0 Yes [facility] 1,000 mg 6-24 ity of tablet 00:00: [place] [facility] rosuvastati 2020-0 Yes 40mg Take 40 mg [facility] n 40 mg 6-24 by mouth ity of tablet 00:00: at [place] [address] bedtime. [facility] JANIA 100 2020-0 Yes Univer s mg tablet 6-24 ity of 00:00: [place] [address] [facility] furosemide 2020-0 Yes 40mg Take 40 mg U nivers 40 mg 6-24 by mouth ity of tablet 00:00: daily. [place] [address] [facility] gabapentin 2020-0 Yes [facility] 600 mg 6-24 ity of tablet 00:00: [place] [address] [facility] JARDIANCE 2020-0 Yes [facility] 25 mg Tab 6-24 ity of 00:00: [place] [facility] glimepiride 2020-0 Yes Univer s 1 mg tablet 6-24 ity of 00:00: [place] [address] [facility] metFORMIN 2020-0 Yes [facility] 1,000 mg 6-24 ity of tablet 00:00: [place] [facility] rosuvastati 2020-0 Yes 40mg Take 40 mg [facility] n 40 mg 6-24 by mouth ity of tablet 00:00: at [place] [address] bedtime. [facility] JANUVIA 100 2020-0 Yes Univer s mg tablet 6-24 ity of 00:00: [place] [address] [facility] furosemide 2020-0 Yes 40mg Take 40 mg U nivers 40 mg 6-24 by mouth ity of tablet 00:00: daily. [place] [facility] gabapentin 2020-0 Yes [facility] 600 mg 6-24 ity of tablet 00:00: [place] [facility] JARDIANCE 2020-0 Yes [facility] 25 mg Tab 6-24 ity of 00:00: [place] [facility] glimepiride 2020-0 Yes Univer s 1 mg tablet 6-24 ity of 00:00: [place] [facility] metFORMIN 2020-0 Yes [facility] 1,000 mg 6-24 ity of tablet 00:00: [place] [facility] rosuvastati 2020-0 Yes 40mg Take 40 mg [facility] n 40 mg 6-24 by mouth ity of tablet 00:00: at [place] [address] bedtime. [facility] JANUVIA 100 2020-0 Yes Univer s mg tablet 6-24 ity of 00:00: [place] [address] [facility] furosemide 2020-0 Yes 40mg Take 40 mg U nivers 40 mg 6-24 by mouth ity of tablet 00:00: daily. [place] [address] [facility] gabapentin 2020-0 Yes [facility] 600 mg 6-24 ity of tablet 00:00: [place] [address] [facility] JARDIANCE 2020-0 Yes [facility] 25 mg Tab 6-24 ity of 00:00: [place] [facility] glimepiride 2020-0 Yes Univer s 1 mg tablet 6-24 ity of 00:00: [place] [facility] metFORMIN 2020-0 Yes [facility] 1,000 mg 6-24 ity of tablet 00:00: [place] [address] [facility] rosuvastati 2020-0 Yes 40mg Take 40 mg [facility] n 40 mg 6-24 by mouth ity of tablet 00:00: at [place] [address] bedtime. [facility] JANUVIA 100 2020-0 Yes Univer s mg tablet 6-24 ity of 00:00: [place] [address] [facility] furosemide 1-0 Yes 40mg Take 40 mg U nivers 40 mg 6-24 by mouth ity of tablet 00:00: daily. [place] [address] [facility] gabapentin 2020-0 Yes [facility] 600 mg 6-24 ity of tablet 00:00: [place] [address] [facility] JARDIANCE 2020-0 Yes [facility] 25 mg Tab 6-24 ity of 00:00: [place] [address] [facility] glimepiride 2020-0 Yes Univer s 1 mg tablet 6-24 ity of 00:00: [place] [facility] metFORMIN 2020-0 Yes [facility] 1,000 mg 6-24 ity of tablet 00:00: [place] [facility] rosuvastati 2020-0 Yes 40mg Take 40 mg [facility] n 40 mg 6-24 by mouth ity of tablet 00:00: at [place] [address] bedtime. Medical [place] [id number] 2020-0 Yes Univer s mg tablet 6-24 ity of 00:00: [place] [facility] furosemide 2020-0 Yes 40mg Take 40 mg U nivers 40 mg 6-24 by mouth ity of tablet 00:00: daily. [place] [facility] gabapentin 2020-0 Yes [facility] 600 mg 6-24 ity of tablet 00:00: [place] [facility] JARDIANCE 2020-0 Yes [facility] 25 mg Tab 6-24 ity of 00:00: [place] [facility] glimepiride 2020-0 Yes Univer s 1 mg tablet 6-24 ity of 00:00: [place] [facility] metFORMIN 2020-0 Yes [facility] 1,000 mg 6-24 ity of tablet 00:00: [place] [facility] rosuvastati 2020-0 Yes 40mg Take 40 mg [facility] n 40 mg 6-24 by mouth ity of tablet 00:00: at [place] [address] bedtime. [place] [id number] 0 Yes Univer s mg tablet 6-24 ity of 00:00: [place] [facility] furosemide 2020-0 Yes 40mg Take 40 mg U nivers 40 mg 6-24 by mouth ity of tablet 00:00: daily. [place] [facility] gabapentin 2020-0 Yes [facility] 600 mg 6-24 ity of tablet 00:00: [place] [address] [facility] JARDIANCE 2020-0 Yes [facility] 25 mg Tab 6-24 ity of 00:00: [place] [facility] glimepiride 2020-0 Yes Univer s 1 mg tablet 6-24 ity of 00:00: [place] [facility] metFORMIN 2020-0 Yes [facility] 1,000 mg 6-24 ity of tablet 00:00: [place] [address] [facility] rosuvastati 2020-0 Yes 40mg Take 40 mg [facility] n 40 mg 6-24 by mouth ity of tablet 00:00: at [place] [address] bedtime. [facility] 100 2020-0 Yes Univer s mg tablet 6-24 ity of 00:00: [place] [facility] furosemide 2020-0 Yes 40mg Take 40 mg U nivers 40 mg 6-24 by mouth ity of tablet 00:00: daily. [place] [facility] gabapentin 2020-0 Yes [facility] 600 mg 6-24 ity of tablet 00:00: [place] [facility] JARDIANCE 2020-0 Yes [facility] 25 mg Tab 6-24 ity of 00:00: [place] [facility] glimepiride 2020-0 Yes Univer s 1 mg tablet 6-24 ity of 00:00: [place] [facility] metFORMIN 2020-0 Yes [facility] 1,000 mg 6-24 ity of tablet 00:00: [place] [facility] rosuvastati 2020-0 Yes 40mg Take 40 mg [facility] n 40 mg 6-24 by mouth ity of tablet 00:00: at [place] [address] bedtime. [facility] 100 2020-0 Yes Univer s mg tablet 6-24 ity of 00:00: [place] [facility] furosemide 2020-0 Yes 40mg Take 40 mg U nivers 40 mg 6-24 by mouth ity of tablet 00:00: daily. [place] [facility] gabapentin 2020-0 Yes [facility] 600 mg 6-24 ity of tablet 00:00: [place] [address] [facility] JARDIANCE 2020-0 Yes [facility] 25 mg Tab 6-24 ity of 00:00: [place] [facility] glimepiride 2020-0 Yes Univer s 1 mg tablet 6-24 ity of 00:00: [place] [facility] metFORMIN 1-0 Yes [facility] 1,000 mg 6-24 ity of tablet 00:00: [place] [facility] rosuvastati 2020-0 Yes 40mg Take 40 mg [facility] n 40 mg 6-24 by mouth ity of tablet 00:00: at [place] [address] bedtime. [facility] 100 2020-0 Yes Univer s mg tablet 6-24 ity of 00:00: [place] [facility] furosemide 2020-0 Yes 40mg Take 40 mg U nivers 40 mg 6-24 by mouth ity of tablet 00:00: daily. [place] [facility] gabapentin 2020-0 Yes [facility] 600 mg 6-24 ity of tablet 00:00: [place] [address] [facility] JARDIANCE 2020-0 Yes [facility] 25 mg Tab 6-24 ity of 00:00: [place] [facility] glimepiride 2020-0 Yes Univer s 1 mg tablet 6-24 ity of 00:00: [place] [facility] metFORMIN 2020-0 Yes [facility] 1,000 mg 6-24 ity of tablet 00:00: [place] [facility] rosuvastati 2020-0 Yes 40mg Take 40 mg [facility] n 40 mg 6-24 by mouth ity of tablet 00:00: at [place] [address] bedtime. [facility] mg tablet 6-24 ity of 00:00: [place] [facility] furosemide 2020-0 Yes 40mg Take 40 mg U nivers 40 mg 6-24 by mouth ity of tablet 00:00: daily. [place] [address] [facility] gabapentin 2020-0 Yes [facility] 600 mg 6-24 ity of tablet 00:00: [place] [facility] JARDIANCE 2020-0 Yes [facility] 25 mg Tab 6-24 ity of 00:00: [place] [facility] glimepiride 2020-0 Yes Univer s 1 mg tablet 6-24 ity of 00:00: [place] [address] [facility] metFORMIN 2020-0 Yes [facility] 1,000 mg 6-24 ity of tablet 00:00: [place] [facility] rosuvastati 2020-0 Yes 40mg Take 40 mg Univers n 40 mg 6-24 by mouth ity of tablet 00:00: at [place] [address] bedtime. [facility] 100 2020-0 Yes Univer s mg tablet 6-24 ity of 00:00: [place] [facility] furosemide 2020-0 Yes 40mg Take 40 mg U nivers 40 mg 6-24 by mouth ity of tablet 00:00: daily. [place] [address] [facility] gabapentin 2020-0 Yes [facility] 600 mg 6-24 ity of tablet 00:00: [place] [facility] JARDIANCE 2020-0 Yes [facility] 25 mg Tab 6-24 ity of 00:00: [place] [facility] glimepiride 2020-0 Yes Univer s 1 mg tablet 6-24 ity of 00:00: [place] [address] [facility] metFORMIN 2020-0 Yes [facility] 1,000 mg 6-24 ity of tablet 00:00: [place] [address] [facility] rosuvastati 0 Yes 40mg Take 40 mg Univers n 40 mg 6-24 by mouth ity of tablet 00:00: at [place] [address] bedtime. [facility] JANUVIA 100 0 Yes Univer s mg tablet 6-24 ity of 00:00: [place] [facility] furosemide 2020-0 Yes 40mg Take 40 mg U nivers 40 mg 6-24 by mouth ity of tablet 00:00: daily. [place] [facility] gabapentin 2020-0 Yes [facility] 600 mg 6-24 ity of tablet 00:00: [place] [facility] JARDIANCE 2020-0 Yes [facility] 25 mg Tab 6-24 ity of 00:00: [place] [facility] glimepiride 2020-0 Yes Univer s 1 mg tablet 6-24 ity of 00:00: [place] [facility] metFORMIN 2020-0 Yes [facility] 1,000 mg 6-24 ity of tablet 00:00: [place] [facility] rosuvastati 2020-0 Yes 40mg Take 40 mg Univers n 40 mg 6-24 by mouth ity of tablet 00:00: at [place] [address] bedtime. [facility] JANIA 100 0 Yes Univer s mg tablet 6-24 ity of 00:00: [place] [facility] furosemide 2020-0 Yes 40mg Take 40 mg U nivers 40 mg 6-24 by mouth ity of tablet 00:00: daily. [place] [facility] gabapentin 2020-0 Yes [facility] 600 mg 6-24 ity of tablet 00:00: [place] [facility] JARDIANCE 2020-0 Yes [facility] 25 mg Tab 6-24 ity of 00:00: [place] [facility] glimepiride 2020-0 Yes Univer s 1 mg tablet 6-24 ity of 00:00: [place] [address] [facility] metFORMIN 2020-0 Yes [facility] 1,000 mg 6-24 ity of tablet 00:00: [place] [address] [facility] rosuvastati 2020-0 Yes 40mg Take 40 mg Univers n 40 mg 6-24 by mouth ity of tablet 00:00: at [place] [address] bedtime. [facility] JANUVIA 100 2020-0 Yes Univer s mg tablet 6-24 ity of 00:00: [place] [address] [facility] furosemide 2020-0 Yes 40mg Take 40 mg U nivers 40 mg 6-24 by mouth ity of tablet 00:00: daily. [place] [facility] gabapentin 2020-0 Yes [facility] 600 mg 6-24 ity of tablet 00:00: [place] [facility] JARDIANCE 2020-0 Yes [facility] 25 mg Tab 6-24 ity of 00:00: [place] [facility] glimepiride 2020-0 Yes Univer s 1 mg tablet 6-24 ity of 00:00: [place] [facility] metFORMIN 2020-0 Yes [facility] 1,000 mg 6-24 ity of tablet 00:00: [place] [facility] rosuvastati 2020-0 Yes 40mg Take 40 mg Univers n 40 mg 6-24 by mouth ity of tablet 00:00: at [place] [address] bedtime. [facility] JANUVIA 100 2020-0 Yes Univer s mg tablet 6-24 ity of 00:00: [place] [address] [facility] furosemide 2020-0 Yes 40mg Take 40 mg U nivers 40 mg 6-24 by mouth ity of tablet 00:00: daily. [place] [address] [facility] gabapentin 2020-0 Yes [facility] 600 mg 6-24 ity of tablet 00:00: [place] [facility] JARDIANCE 2020-0 Yes [facility] 25 mg Tab 6-24 ity of 00:00: [place] [facility] glimepiride 2020-0 Yes Univer s 1 mg tablet 6-24 ity of 00:00: [place] [address] [facility] metFORMIN 2020-0 Yes [facility] 1,000 mg 6-24 ity of tablet 00:00: [place] [facility] rosuvastati 2020-0 Yes 40mg Take 40 mg Univers n 40 mg 6-24 by mouth ity of tablet 00:00: at [place] [address] bedtime. [facility] JANIA 100 2020-0 Yes Univer s mg tablet 6-24 ity of 00:00: [place] [address] [facility] furosemide 2021-0 Yes 40mg Take 40 mg U nivers 40 mg 6-24 by mouth ity of tablet 00:00: daily. [place] [address] [facility] gabapentin 2020-0 Yes [facility] 600 mg 6-24 ity of tablet 00:00: [place] [address] [facility] JARDIANCE 2020-0 Yes [facility] 25 mg Tab 6-24 ity of 00:00: [place] [address] [facility] glimepiride 2020-0 Yes Univer s 1 mg tablet 6-24 ity of 00:00: [place] [facility] metFORMIN 2020-0 Yes [facility] 1,000 mg 6-24 ity of tablet 00:00: [place] [facility] rosuvastati 2020-0 Yes 40mg Take 40 mg Univers n 40 mg 6-24 by mouth ity of tablet 00:00: at [place] [address] bedtime. [facility] Branch [place] [id number] 2020-0 Yes Univer s mg tablet 6-24 ity of 00:00: [place] [facility] furosemide 2020-0 Yes 40mg Take 40 mg U nivers 40 mg 6-24 by mouth ity of tablet 00:00: daily. [place] [facility] gabapentin 2020-0 Yes [facility] 600 mg 6-24 ity of tablet 00:00: [place] [facility] JARDIANCE 2020-0 Yes [facility] 25 mg Tab 6-24 ity of 00:00: [place] [facility] glimepiride 2020-0 Yes Univer s 1 mg tablet 6-24 ity of 00:00: [place] [facility] metFORMIN 2020-0 Yes Univers 1,000 mg 6-24 ity of tablet 00:00: [place] [facility] rosuvastati 2020-0 Yes 40mg Take 40 mg Univers n 40 mg 6-24 by mouth ity of tablet 00:00: at [place] [address] bedtime. Medical [place] [id number] 0 Yes Univer s mg tablet 6-24 ity of 00:00: [place] [facility] furosemide 2020-0 Yes 40mg Take 40 mg U nivers 40 mg 6-24 by mouth ity of tablet 00:00: daily. [place] [facility] gabapentin 2020-0 Yes [facility] 600 mg 6-24 ity of tablet 00:00: [place] [facility] JARDIANCE 2020-0 Yes [facility] 25 mg Tab 6-24 ity of 00:00: [place] [facility] glimepiride 2020-0 Yes Univer s 1 mg tablet 6-24 ity of 00:00: [place] [facility] [place] metFORMIN 2020-0 Yes [facility] 1,000 mg 6-24 ity of tablet 00:00: [place] [address] [facility] Branch rosuvastati 2020-0 Yes 40mg Take 40 mg Univers n 40 mg 6-24 by mouth ity of tablet 00:00: at [place] [address] bedtime. Medical [place] [address] 2021-0 Yes Univer s mg tablet 6-24 ity of 00:00: [place] [facility] furosemide 2020-0 Yes 40mg Take 40 mg U nivers 40 mg 6-24 by mouth ity of tablet 00:00: daily. [place] [facility] gabapentin 2020-0 Yes [facility] 600 mg 6-24 ity of tablet 00:00: [place] [facility] JARDIANCE 2020-0 Yes [facility] 25 mg Tab 6-24 ity of 00:00: [place] [facility] glimepiride 2020-0 Yes Univer s 1 mg tablet 6-24 ity of 00:00: [place] [facility] metFORMIN 2020-0 Yes [facility] 1,000 mg 6-24 ity of tablet 00:00: [place] [facility] rosuvastati 2020-0 Yes 40mg Take 40 mg Univers n 40 mg 6-24 by mouth ity of tablet 00:00: at [place] [address] bedtime. [facility] 2020-0 Yes Univer s mg tablet 6-24 ity of 00:00: [place] [facility] furosemide 2020-0 Yes 40mg Take 40 mg U nivers 40 mg 6-24 by mouth ity of tablet 00:00: daily. [place] [facility] gabapentin 2020-0 Yes [facility] 600 mg 6-24 ity of tablet 00:00: [place] [facility] JARDIANCE 2020-0 Yes [facility] 25 mg Tab 6-24 ity of 00:00: [place] [facility] glimepiride 2020-0 Yes Univer s 1 mg tablet 6-24 ity of 00:00: [place] [facility] metFORMIN 2020-0 Yes [facility] 1,000 mg 6-24 ity of tablet 00:00: [place] [facility] rosuvastati 2020-0 Yes 40mg Take 40 mg Univers n 40 mg 6-24 by mouth ity of tablet 00:00: at [place] [address] bedtime. [facility] JANIA 100 2020-0 Yes Univer s mg tablet 6-24 ity of 00:00: [place] [facility] furosemide 2020-0 Yes 40mg Take 40 mg U nivers 40 mg 6-24 by mouth ity of tablet 00:00: daily. [place] [address] [facility] gabapentin 2020-0 Yes [facility] 600 mg 6-24 ity of tablet 00:00: [place] [address] [facility] JARDIANCE 0 Yes [facility] 25 mg Tab 6-24 ity of 00:00: [place] [facility] glimepiride 2020-0 Yes Univer s 1 mg tablet 6-24 ity of 00:00: [place] [facility] metFORMIN 2020-0 Yes Univers 1,000 mg 6-24 ity of tablet 00:00: [place] [address] [facility] Branch rosuvastati 2020-0 Yes 40mg Take 40 mg Univers n 40 mg 6-24 by mouth ity of tablet 00:00: at [place] [address] bedtime. [facility] JANUVIA 100 2020-0 Yes Univer s mg tablet 6-24 ity of 00:00: [place] [address] [facility] Branch furosemide 2020-0 Yes 40mg Take 40 mg U nivers 40 mg 6-24 by mouth ity of tablet 00:00: daily. [place] [address] [facility] gabapentin 2020-0 Yes Univers 600 mg 6-24 ity of tablet 00:00: [place] [address] [facility] JARDIANCE 2020-0 Yes Univers 25 mg Tab 6-24 ity of 00:00: [place] [facility] glimepiride 2020-0 Yes Univer s 1 mg tablet 6-24 ity of 00:00: [place] [address] [facility] metFORMIN 2020-0 Yes Univers 1,000 mg 6-24 ity of tablet 00:00: [place] [address] [facility] rosuvastati 2020-0 Yes 40mg Take 40 mg Univers n 40 mg 6-24 by mouth ity of tablet 00:00: at [place] [address] bedtime. [facility] JANUVIA 100 2020-0 Yes Univer s mg tablet 6-24 ity of 00:00: [facility] furosemide 2020-0 Yes 40mg Take 40 mg U nivers 40 mg 6-24 by mouth ity of tablet 00:00: daily. [place] [address] [facility] Levemir 2020-0 No (3 mL) FlexTouch 6-23 U-100 00:00: Insulin 100 00 unit/mL (3 mL) subcutaneou s pen Descovy 200 2020-0 No 1mg mg-25 mg 6-23 tablet 00:00: [...] lisinopril 2021-0 No 1mg 5 mg tablet 6- 00:00: 00 Jardiance 2021-0 No 1mg 25 [...] Tivicay 50 2021-0 No 1mg mg tablet 6 00:00: 00 cyclobenzap 2021-0 No 1mg rine [...] (3 mL) subcutaneou s pen ProAir HFA 2021-0 No 12mcg/a 90 3-19 ctuatio mcg/actuati 00:00: n on aerosol 00 inhaler Levemir 2020-0 No (3 mL) FlexTouch 3-19 U-100 00:00: Insulin 100 00 unit/mL (3 mL) subcutaneou s pen nystatin 2020-0 No 1unit/g 100,000 3-19 presley unit/gram 00:00: topical 00 ointment Protonix 40 2020-0 No 1mg mg 3-19 tablet,agus 00:00: yed [...] glimepiride 1-0 No 1mg 1 mg tablet - 00:00: 00 metformin 1-0 No 1mg 1,000 mg 3-19 tablet 00:00: [...] 00 ProAir HFA 2020-0 No 12mcg/a 90 -19 ctuatio mcg/actuati 00:00: [...] 1mg mg tablet -19 00:00: 00 Jardiance 2021-0 No 1mg 25 mg 3-19 tablet 00:00: 00 Descovy 200 2021-0 No 1mg mg-25 mg 3-19 tablet 00:00: 00 lisinopril 1-0 No 1mg 5 mg tablet -19 00:00: 00 glimepiride 1-0 No 1mg 1 mg tablet -19 00:00: 00 metformin 1-0 No 1mg 1,000 mg 3-19 tablet 00:00: [...] 00 ProAir HFA 2020-0 No 12mcg/a 90 - ctuatio mcg/actuati 00:00: n on aerosol 00 inhaler Levemir 2020-0 No (3 mL) FlexTouch 3-19 U-100 00:00: Insulin 100 00 unit/mL (3 mL) subcutaneou s pen nystatin 2020-0 No 1unit/g 100,000 3-19 presley unit/gram 00:00: [...] 00 nded release Dose 1-0 No Unknown 3-19 00:00: 00 Alcohol 1-0 No 1 Prep Pads -19 00:00: 00 gabapentin 2021-0 No 1mg 600 mg 3-11 tablet 00:00: 00 gabapentin 2021-0 No 1mg 600 mg 3-11 tablet 00:00: 00 gabapentin 2021-0 No 1mg 600 mg 3-11 tablet 00:00: 00 Protonix 40 1-0 No 1mg mg 1-15 [...] 1-15 tablet,agus 00:00: yed release 00 Flonase 2020-0 No 2mcg/ac Allergy 1-15 tuation Relief 50 00:00: mcg/actuati 00 on nasal spray,suspe nsion promethazin 2020-0 No 1mg e 25 mg 1-12 tablet 00:00: 00 promethazin 1-0 No 1mg e 25 mg 1-12 tablet 00:00: 00 promethazin 1-0 No 1mg e 25 mg 1-12 tablet 00:00: 00 ProAir HFA 2020-0 No 12mcg/a 90 1-06 [...] No Unknown -04 00:00: 00 Januvia 100 2021-0 No 1mg mg tablet 08-17 00:00: 00 furosemide 2021-0 No 1mg 40 mg 1-04 tablet 00:00: 00 metformin 2021-0 No 1mg 1,000 mg 1-04 tablet 00:00: 00 glimepiride 2021-0 No 1mg 1 mg tablet 08-17 00:00: 00 rosuvastati 2021-0 No 1mg n 40 mg 1-04 tablet 00:00: 00 Tivicay 50 2021-0 No 1mg mg tablet 08-17 00:00: 00 cyclobenzap 2021-0 No 1mg rine 10 mg 1-04 tablet 00:00: 00 ferrous 1-0 No 1(65 mg sulfate 325 08-17 iron) mg (65 mg 00:00: iron) 00 tablet,agus yed release Alcohol 2020-0 No 1 Prep Pads - 00:00: 00 gabapentin 1-0 No 1mg 300 [...] mg 1-04 tablet 00:00: 00 Tivicay 50 2021-0 No 1mg mg tablet 08-17 00:00: 00 cyclobenzap 2021-0 No 1mg rine 10 mg 1-04 tablet 00:00: 00 ferrous 2021-0 No 1(65 mg sulfate 325 -04 iron) mg (65 mg 00:00: iron) 00 tablet,agus yed release Alcohol 2020-0 No 1 Prep Pads 1- 00:00: 00 gabapentin 2021-0 No 1mg 300 mg 1-04 capsule 00:00: 00 Levemir 1-0 No (3 mL) FlexTouch 1-04 U-100 00:00: Insulin 100 00 unit/mL (3 mL) subcutaneou s pen lisinopril 2020-0 No 1mg 5 mg tablet 1 00:00: 00 Descovy 200 1-0 No 1mg [...] glimepiride 1-0 No 1mg 1 mg tablet 04 00:00: 00 rosuvastati 1-0 No 1mg n 40 mg 1-04 tablet 00:00: 00 Tivicay 50 1-0 No 1mg mg tablet 08-17 00:00: 00 cyclobenzap 1-0 No 1mg rine 10 mg 1-04 tablet 00:00: 00 ferrous 1-0 No 1(65 mg sulfate 325 -04 iron) mg (65 mg 00:00: iron) 00 tablet,agus yed release Alcohol 2020-0 No 1 Prep Pads 1-04 00:00: 00 gabapentin 1-0 No 1mg 300 mg 1-04 capsule 00:00: 00 lisinopril 2019-1 No 1mg 5 mg tablet 0 00:00: 00 Descovy 200 2019-1 No 1mg mg-25 mg 0-28 tablet 00:00: 00 Jardiance 2020-1 No 1mg 25 mg 0-28 tablet 00:00: 00 aspirin 81 2019-1 No 1mg mg 0-28 tablet,agus 00:00: yed release 00 Januvia 100 2019- No 1mg mg tablet 0-28 00:00: 00 metformin 2020-1 No 1mg 1,000 mg 0-28 tablet 00:00: 00 glimepiride 2019- No 1mg 1 mg tablet 0-28 00:00: 00 rosuvastati 2020-1 No 1mg n 40 mg 0-28 tablet [...] 1 mg tablet 0-28 00:00: 00 rosuvastati 2019-1 No 1mg n 40 mg 0-28 tablet 00:00: 00 cyclobenzap 2019- No 1mg rine 10 mg 0-28 tablet 00:00: 00 ferrous 2019-1 No 1(65 mg sulfate 325 0-28 iron) mg (65 mg 00:00: iron) 00 tablet,agus yed release gabapentin 2019- No 1mg 300 mg 0-28 capsule 00:00: 00 lisinopril 2019-1 No 1mg 5 mg tablet 0-28 00:00: 00 Descovy 200 2019-1 No 1mg mg-25 mg 0-28 tablet 00:00: 00 Jardiance 2020-1 No 1mg 25 mg 0-28 tablet 00:00: 00 aspirin 81 2019-1 No 1mg mg 0-28 tablet,agus 00:00: yed release 00 Januvia 100 2019-08 No 1mg mg tablet 028 00:00: 00 metformin 2019-08 No 1mg 1,000 mg 0-28 tablet 00:00: 00 glimepiride 2019-08 No 1mg 1 mg tablet 028 00:00: 00 rosuvastati 2019-08 No 1mg n [...] Tivicay 50 2019-08 No 1mg mg tablet 0 00:00: 00 Alcohol 2019-08 No 1 Prep [...] unit/mL (3 mL) subcutaneou s pen Levemir 2019-08 No (3 mL) FlexTouch 0-22 [...] Januvia 100 2020-0 No 1mg mg tablet 725 00:00: 00 aspirin 81 2020-0 No 1mg [...] Januvia 100 2020-0 No 1mg mg tablet 6-16 00:00: 00 Levemir 2020-0 No (3 mL) [...] glimepiride 2020-0 No 1mg 1 mg tablet -27 00:00: 00 cyclobenzap 2020-0 No 1mg rine 10 mg 4-27 tablet 00:00: 00 ferrous 2020-0 No 1(65 mg sulfate 325 4-27 iron) mg (65 mg 00:00: iron) 00 tablet,agus yed release Levemir 2020-0 No 30(3 FlexTouch 4-27 mL) U-100 00:00: Insulin 100 00 unit/mL (3 mL) saud s pen Januvia 100 2020-0 No 1mg [...] 00 furosemide 2020-0 No 1mg 40 mg 1-29 tablet 00:00: 00 aspirin 81 2020-0 No [...] release potassium 2020-0 No 1mEq chloride ER 29 10 mEq 00:00: tablet,exte 00 nded release [...] 00 ProAir HFA 2020-0 No 12mcg/a 90 29 ctuatio mcg/actuati 00:00: n on aerosol 00 inhaler Levemir 2020-0 No 20(3 FlexTouch 1-29 mL) U-100 00:00: Insulin 100 00 unit/mL (3 mL) subcutaneou s pen Jardiance 2020-0 No 1mg 25 mg 1-29 tablet 00:00: 00 Levemir 2020-0 No 30(3 FlexTouch 1-29 mL) U-100 00:00: Insulin 100 00 unit/mL (3 mL) subcutaneou s pen aspirin 81 2020-0 No 1mg mg 1-29 tablet,agus 00:00: yed release 00 Januvia 100 2020-0 No 1mg mg tablet 09-11 00:00: 00 Jardiance 2020-0 No 1mg 25 mg 1-29 tablet 00:00: 00 furosemide 2020-0 No 1mg 40 mg 1-29 tablet 00:00: 00 aspirin 81 2020-0 No 1mg mg 1-29 tablet,agus 00:00: yed release 00 Descovy 200 2020-0 No 1mg mg-25 mg 1-29 tablet 00:00: 00 glimepiride 2020-0 No 1mg 1 mg tablet 09-11 00:00: 00 metformin 2020-0 No 1mg 1,000 mg 1-29 tablet 00:00: 00 Tivicay 50 2020-0 No 1mg mg tablet 09-11 00:00: 00 furosemide 2020-0 No 1mg 40 mg 1-29 tablet 00:00: 00 cyclobenzap 2020-0 No 1mg rine 10 mg 1-29 tablet 00:00: 00 ferrous 2020-0 No 1(65 mg sulfate 325 1-29 iron) mg (65 mg 00:00: iron) 00 tablet,agus yed release ferrous 2020-0 No 1(65 mg sulfate 325 -29 iron) mg (65 mg 00:00: iron) 00 tablet,agus yed release potassium 2020-0 No 1mEq chloride ER 09-11 10 mEq 00:00: tablet,exte 00 nded release aspirin 81 2020-0 No 1mg mg 1-29 tablet,agus 00:00: yed release 00 Descovy 200 2019-0 No 1mg mg-25 mg -29 tablet 00:00: 00 glimepiride 2019-0 No 1mg 1 mg tablet 09-11 00:00: 00 metformin 2020-0 No 1mg 1,000 mg -29 tablet 00:00: 00 Tivicay 50 2019-0 No 1mg mg tablet 09-11 00:00: 00 cyclobenzap 2019-0 No 1mg rine 10 mg -29 tablet 00:00: 00 ferrous 2020-0 No 1(65 mg sulfate 325 1-29 iron) mg (65 mg 00:00: iron) 00 tablet,agus yed release ferrous 2019-0 No 1(65 mg sulfate 325 1-29 iron) mg (65 mg 00:00: iron) 00 tablet,agus yed release potassium 2019-0 No 1mEq chloride ER 09-11 10 mEq 00:00: tablet,exte 00 nded release rosuvastati 2019-0 No 1mg n 40 mg 1-02 tablet 00:00: 00 Alcohol 2020-0 No 1 Prep Pads 1-02 00:00: 00 rosuvastati 2020-0 No 1mg n 40 mg 1-02 tablet 00:00: 00 Alcohol 2020-0 No 1 Prep Pads 1-02 00:00: 00 rosuvastati 2020-0 No 1mg n 40 mg -02 tablet 00:00: 00 Alcohol 2020-0 No 1 Prep Pads -02 00:00: 00 ferrous 2018- No 1(65 mg sulfate 325 2-31 iron) mg (65 mg 00:00: iron) 00 tablet,agus yed release ferrous 2018-08 No 1(65 mg sulfate 325 2-31 iron) mg (65 mg 00:00: iron) 00 tablet,agus yed release ferrous 2018-08 No 1(65 mg sulfate 325 2-31 iron) mg (65 mg 00:00: iron) 00 tablet,agus yed release ProAir HFA 2018-08 No 12mcg/a 90 2-17 ctuatio mcg/actuati 00:00: n on aerosol 00 inhaler aspirin 81 2018-08 No 1mg mg 2-17 tablet,agus 00:00: yed release 00 furosemide 2018-08 No 1mg 40 mg 2-17 tablet 00:00: [...] 2-17 tablet,agus 00:00: yed release 00 furosemide 2018- No 1mg 40 mg 2-17 tablet 00:00: 00 Januvia 100 2018- No 1mg mg tablet 2-17 00:00: 00 aspirin 81 2018- No 1mg mg 2-17 tablet,agus 00:00: yed release metformin 2018- No 1mg 1,000 mg 2-17 [...] release potassium 2018-08 No 1mEq chloride ER 2-17 10 mEq 00:00: tablet,exte 00 nded release ProAir HFA 2018-08 No 12mcg/a 90 2-17 ctuatio mcg/actuati 00:00: n on aerosol 00 inhaler aspirin 81 2018- No 1mg mg 2-17 tablet,agus 00:00: yed release 00 furosemide 2019-1 No 1mg 40 mg 2-17 tablet 00:00: 00 Januvia 100 2018-1 No 1mg mg tablet 2-17 00:00: 00 aspirin 81 2019- No 1mg mg 2-17 tablet,agus 00:00: yed release 00 metformin 2018-1 No 1mg 1,000 mg 2-17 tablet 00:00: 00 glimepiride 2018-1 No 1mg 1 mg tablet 2-17 00:00: [...] tablet,agus 00:00: yed release 00 ProAir HFA 2018- No 12mcg/a 90 -13 ctuatio mcg/actuati 00:00: n on aerosol 00 inhaler aspirin 81 2018- No 1mg mg 1-13 tablet,agus 00:00: yed release 00 Januvia 100 2018- No 1mg mg tablet -13 00:00: 00 furosemide 2019-1 No 1mg 40 mg 1-13 tablet 00:00: 00 glimepiride 2018-1 No 1mg 1 mg tablet 1-13 00:00: 00 metformin 2018-1 No 1mg 1,000 mg 1-13 tablet 00:00: 00 cyclobenzap 2018-1 No 1mg rine 10 mg 1-13 tablet 00:00: 00 nitroglycer 2018- No 1mg in 0.4 mg 1-13 sublingual 00:00: tablet 00 ferrous 2018- No 1(65 mg sulfate 325 1-13 iron) mg (65 mg 00:00: iron) 00 tablet,agus yed release potassium 2018-08 No 1mEq chloride ER 1-13 10 mEq 00:00: tablet,exte 00 nded release ProAir HFA 2018-08 No 12mcg/a 90 1-13 [...] mg -13 sublingual 00:00: tablet 00 ferrous 2018-08 No 1(65 mg sulfate 325 -13 iron) mg (65 mg 00:00: iron) 00 tablet,agus yed release potassium 2018-08 No 1mEq chloride ER 13 10 mEq 00:00: tablet,exte 00 nded release ProAir HFA 2018-08 No 12mcg/a 90 -13 ctuatio mcg/actuati 00:00: n on aerosol 00 inhaler aspirin 81 2018-08 No 1mg mg 08-26 tablet,agus 00:00: yed release Auguvia 100 2018-08 No 1mg mg tablet 08-26 00:00: 00 furosemide 2018-1 No 1mg 40 mg 1-13 tablet 00:00: 00 glimepiride 2018- No 1mg 1 mg tablet 08-26 00:00: 00 metformin 2018-1 No 1mg 1,000 mg -13 tablet 00:00: 00 cyclobenzap 2018-08 No 1mg rine 10 mg -13 tablet 00:00: 00 nitroglycer 2018- No 1mg in 0.4 mg -13 sublingual 00:00: tablet 00 ferrous 2019-1 No 1(65 mg sulfate 325 1-13 iron) mg (65 mg 00:00: iron) 00 tablet,agus yed release potassium 2018-1 No 1mEq chloride ER 1-13 10 mEq 00:00: tablet,exte 00 nded release tramadol 50 2019-1 No 1mg mg tablet 0-08 00:00: 00 tramadol 50 2019-1 No 1mg mg tablet 008 00:00: 00 tramadol 50 2019-1 No 1mg mg tablet 008 00:00: 00 tramadol 50 2019-0 No 1mg mg tablet 9 00:00: 00 tramadol 50 2019-0 No 1mg mg tablet 9 00:00: 00 tramadol 50 2019-0 No 1mg mg tablet 9 00:00: 00 glimepiride 2019-0 No 1mg 1 mg tablet 04-04 00:00: 00 ferrous 2019-0 No 1(65 mg sulfate 325 8-22 iron) mg (65 mg 00:00: iron) 00 tablet,agus yed release glimepiride 2018-0 No 1mg 1 mg tablet 04-04 00:00: 00 ferrous 2019-0 No 1(65 mg sulfate 325 8-22 iron) mg (65 mg 00:00: iron) 00 tablet,agus yed release glimepiride 2019-0 No 1mg 1 mg tablet 04-04 00:00: 00 ferrous 2019-0 No 1(65 mg sulfate 325 8-22 iron) mg (65 mg 00:00: iron) 00 tablet,agus yed release ProAir HFA 2019-0 No 12mcg/a 90 8-20 ctuatio mcg/actuati 00:00: n on aerosol 00 inhaler furosemide 2019-0 No 1mg 40 mg 8-20 tablet 00:00: 00 Januvia 100 2019-0 No 1mg mg tablet 820 00:00: 00 aspirin 81 2019-0 No 1mg [...] Livalo 4 mg 2019-0 No 1mg tablet 7-06 00:00: 00 furosemide 2019-0 No 1mg 40 mg 7-06 tablet 00:00: 00 tramadol 50 2019-0 No 1mg mg tablet 7- 00:00: 00 cyclobenzap 2019-0 No 1mg rine [...] Filled Immunization Date Status Comments [facility] e Immunization Name Name Influenza Virus [...] [facility]it [facility] of Vaccine Recomb Quad 00:00:00 [place] [facility], Preserv and ABX Branc h [...] [facility]it y of Vaccine Recomb Quad 00:00:00 [place] [facility], Preserv and ABX Branc h Free 18-64 YRS HEPLISAV HEP B, 2019-09-13 Completed Universit y of ADULT 2 DOSE, IM 00:00:00 [place] [facility] HEPLISAV HEP B, 2019-09-13 Completed Universit y of ADULT 2 DOSE, IM 00:00:00 [facility] HEPLISAV HEP B, 2019-09-13 Completed Universit y of ADULT 2 DOSE, IM 00:00:00 [facility] HEPLISAV HEP B, 2019-09-13 Completed Universit y of ADULT 2 DOSE, IM 00:00:00 [facility] HEPLISAV HEP B, 2019-09-13 Completed Universit y of ADULT 2 DOSE, IM 00:00:00 [facility] HEPLISAV HEP B, 2019-09-13 Completed Universit y of ADULT 2 DOSE, IM 00:00:00 [facility] HEPLISAV HEP B, 2019-09-13 Completed [facility]it y of ADULT 2 DOSE, IM 00:00:00 [facility] HEPLISAV HEP B, 2019-09-13 Completed Universit y of ADULT 2 DOSE, IM 00:00:00 [facility] HEPLISAV HEP B, 2019-09-13 Completed Universit y of ADULT 2 DOSE, IM 00:00:00 [facility] HEPLISAV HEP B, 2019-09-13 Completed Universit y of ADULT 2 DOSE, IM 00:00:00 [facility] HEPLISAV HEP B, 2019-09-13 Completed [facility]it y of ADULT 2 DOSE, IM 00:00:00 [facility] HEPLISAV HEP B, 2019-09-13 Completed [facility]it y of ADULT 2 DOSE, IM 00:00:00 [facility] HEPLISAV HEP B, 2019-09-13 Completed [facility]it y of ADULT 2 DOSE, IM 00:00:00 [facility] HEPLISAV HEP B, 2019-09-13 Completed [facility]it y of ADULT 2 DOSE, IM 00:00:00 [facility] HEPLISAV HEP B, 2019-09-13 Completed [facility]it y of ADULT 2 DOSE, IM 00:00:00 [facility] HEPLISAV HEP B, 2019-09-13 Completed Universit y of ADULT 2 DOSE, IM 00:00:00 [facility] HEPLISAV HEP B, 2019-09-13 Completed Universit y of ADULT 2 DOSE, IM 00:00:00 [facility] HEPLISAV HEP B, 2019-09-13 Completed [facility]it y of ADULT 2 DOSE, IM 00:00:00 [facility] HEPLISAV HEP B, 2019-09-13 Completed [facility]it y of ADULT 2 DOSE, IM 00:00:00 [facility] HEPLISAV HEP B, 2019-09-13 Completed [facility]it y of ADULT 2 DOSE, IM 00:00:00 [facility] HEPLISAV HEP B, 2019-09-13 Completed [facility]it y of ADULT 2 DOSE, IM 00:00:00 [facility] HEPLISAV HEP B, 2019-09-13 Completed Universit y of ADULT 2 DOSE, IM 00:00:00 [facility] HEPLISAV HEP B, 2019-09-13 Completed Universit y of ADULT 2 DOSE, IM 00:00:00 [facility] HEPLISAV HEP B, 2019-09-13 Completed [facility]it y of ADULT 2 DOSE, IM 00:00:00 [facility] HEPLISAV HEP B, 2019-09-13 Completed Universit y of ADULT 2 DOSE, IM 00:00:00 [facility] HEPLISAV HEP B, 2019-09-13 Completed [facility]it y of ADULT 2 DOSE, IM 00:00:00 [facility] HEPLISAV HEP B, 2019-09-13 Completed [facility]it y of ADULT 2 DOSE, IM 00:00:00 [facility] HEPLISAV HEP B, 2019-09-13 Completed [facility]it y of ADULT 2 DOSE, IM 00:00:00 [facility] HEPLISAV HEP B, 2019-08-09 Completed Universit y of ADULT 2 DOSE, IM 00:00:00 [facility] Hepatitis A Adult 2019-08-09 Completed Univers ity of 00:00:00 [facility] HEPLISAV HEP B, 2019-08-09 Completed Universit y of ADULT 2 DOSE, IM 00:00:00 [facility] Hepatitis A Adult 2019-08-09 Completed Univers ity of 00:00:00 [facility] HEPLISAV HEP B, 2019-08-09 Completed Universit y of ADULT 2 DOSE, IM 00:00:00 [facility] Hepatitis A Adult 2019-08-09 Completed Univers ity of 00:00:00 [facility] HEPLISAV HEP B, 2019-08-09 Completed Universit y of ADULT 2 DOSE, IM 00:00:00 [facility] Hepatitis A Adult 2019-08-09 Completed Univers ity of 00:00:00 [facility] HEPLISAV HEP B, 2019-08-09 Completed Universit y of ADULT 2 DOSE, IM 00:00:00 [facility] Hepatitis A Adult 2019-08-09 Completed Univers ity of 00:00:00 [facility] HEPLISAV HEP B, 2019-08-09 Completed Universit y of ADULT 2 DOSE, IM 00:00:00 [facility] Hepatitis A Adult 2019-08-09 Completed Univers ity of 00:00:00 [facility] HEPLISAV HEP B, 2019-08-09 Completed Universit y of ADULT 2 DOSE, IM 00:00:00 [facility] Hepatitis A Adult 2019-08-09 Completed Univers ity of 00:00:00 [facility] HEPLISAV HEP B, 2019-08-09 Completed Universit y of ADULT 2 DOSE, IM 00:00:00 [facility] Hepatitis A Adult 2019-08-09 Completed Univers ity of 00:00:00 [facility] HEPLISAV HEP B, 2019-08-09 Completed Universit y of ADULT 2 DOSE, IM 00:00:00 [facility] Hepatitis A Adult 2019-08-09 Completed Univers ity of 00:00:00 [facility] HEPLISAV HEP B, 2019-08-09 Completed Universit y of ADULT 2 DOSE, IM 00:00:00 [facility] Hepatitis A Adult 2019-08-09 Completed Univers ity of 00:00:00 [facility] HEPLISAV HEP B, 2019-08-09 Completed Universit y of ADULT 2 DOSE, IM 00:00:00 [facility] Hepatitis A Adult 2019-08-09 Completed Univers ity of 00:00:00 [facility] HEPLISAV HEP B, 2019-08-09 Completed Universit y of ADULT 2 DOSE, IM 00:00:00 [facility] Hepatitis A Adult 2019-08-09 Completed Univers ity of 00:00:00 [facility] HEPLISAV HEP B, 2019-08-09 Completed Universit y of ADULT 2 DOSE, IM 00:00:00 [facility] Hepatitis A Adult 2019-08-09 Completed Univers ity of 00:00:00 [facility] HEPLISAV HEP B, 2019-08-09 Completed Universit y of ADULT 2 DOSE, IM 00:00:00 [facility] Hepatitis A Adult 2019-08-09 Completed Univers ity of 00:00:00 [facility] HEPLISAV HEP B, 2019-08-09 Completed [facility]it y of ADULT 2 DOSE, IM 00:00:00 [facility] Hepatitis A Adult 2019-08-09 Completed Univers ity of 00:00:00 [facility] HEPLISAV HEP B, 2019-08-09 Completed Universit y of ADULT 2 DOSE, IM 00:00:00 [facility] Hepatitis A Adult 2019-08-09 Completed Univers ity of 00:00:00 [facility] HEPLISAV HEP B, 2019-08-09 Completed Universit y of ADULT 2 DOSE, IM 00:00:00 [facility] Hepatitis A Adult 2019-08-09 Completed Univers ity of 00:00:00 [facility] HEPLISAV HEP B, 2019-08-09 Completed Universit y of ADULT 2 DOSE, IM 00:00:00 [facility] Hepatitis A Adult 2019-08-09 Completed Univers ity of 00:00:00 [facility] HEPLISAV HEP B, 2019-08-09 Completed Universit y of ADULT 2 DOSE, IM 00:00:00 [facility] Hepatitis A Adult 2019-08-09 Completed Univers ity of 00:00:00 [facility] HEPLISAV HEP B, 2019-08-09 Completed [facility]it y of ADULT 2 DOSE, IM 00:00:00 [facility] Hepatitis A Adult 2019-08-09 Completed Univers ity of 00:00:00 [facility] HEPLISAV HEP B, 2019-08-09 Completed Universit y of ADULT 2 DOSE, IM 00:00:00 [facility] Hepatitis A Adult 2019-08-09 Completed Univers ity of 00:00:00 [facility] HEPLISAV HEP B, 2019-08-09 Completed Universit y of ADULT 2 DOSE, IM 00:00:00 [facility] Hepatitis A Adult 2019-08-09 Completed Univers ity of 00:00:00 [facility] HEPLISAV HEP B, 2019-08-09 Completed [facility]it y of ADULT 2 DOSE, IM 00:00:00 [facility] Hepatitis A Adult 2019-08-09 Completed Univers ity of 00:00:00 [facility] HEPLISAV HEP B, 2019-08-09 Completed Universit y of ADULT 2 DOSE, IM 00:00:00 [facility] Hepatitis A Adult 2019-08-09 Completed Univers ity of 00:00:00 [facility] HEPLISAV HEP B, 2019-08-09 Completed [facility] ADULT 2 DOSE, IM [facility] 2019-08-09 Completed Univers ity of 00:00:00 [facility] HEPLISAV HEP B, 2019-08-09 Completed Universit y of ADULT 2 DOSE, IM 00:00:00 [facility] Hepatitis A Adult 2019-08-09 Completed Univers ity of 00:00:00 [facility] HEPLISAV HEP B, 2019-08-09 Completed [facility]it y of ADULT 2 DOSE, IM 00:00:00 [facility] Hepatitis A Adult 2019-08-09 Completed Univers ity of 00:00:00 [facility] HEPLISAV HEP B, 2019-08-09 Completed [facility]it y of ADULT 2 DOSE, IM 00:00:00 [facility] Hepatitis A Adult 2019-08-09 Completed Univers ity of 00:00:00 [facility] Influenza Virus 2019-05-10 Completed Universit y of Vaccine Quad .5 mL 00:00:00 [facility] 6[facility] [place] [facility] Influenza Virus 2019-05-10 Completed [facility]it y of Vaccine Quad .5 mL 00:00:00 [facility] 6[facility] Influenza Virus 2019-05-10 Completed [facility]it y of Vaccine Quad .5 mL 00:00:00 [facility] 6[facility] Influenza Virus 2019-05-10 Completed [facility]it y of Vaccine Quad .5 mL 00:00:00 [facility] Influenza Virus 2019-05-10 Completed [facility] of Vaccine Quad .5 mL 00:00:00 [facility] IM 6[facility] Influenza Virus [...] y of Vaccine Quad .5 mL 00:00:00 [facility] Influenza Virus 2019-05-10 Completed [facility] of Vaccine Quad .5 mL 00:00:00 [facility] Influenza Virus 2019-05-10 Completed [facility] of Vaccine Quad .5 mL 00:00:00 [facility] Influenza Virus 2019-05-10 Completed [facility] of Vaccine Quad .5 mL 00:00:00 [facility] Influenza Virus 2019-05-10 Completed [facility] of Vaccine Quad .5 mL 00:00:00 [facility] Influenza Virus [...] y of Vaccine Quad .5 mL 00:00:00 [facility] Influenza Virus 2019-05-10 Completed [facility] of Vaccine Quad .5 mL 00:00:00 [facility] Influenza Virus 2019-05-10 Completed [facility] .5 mL 00:00:00 [facility] Influenza Virus 2019-05-10 Completed [facility] .5 mL 00:00:00 [facility] Influenza Virus 2019-05-10 Completed [facility] .5 mL 00:00:00 [facility] Influenza Virus 2019-05-10 Completed [facility] .5 mL 00:00:00 [facility] Vital Signs Vital Name Observation Time Observation Value Comments Source Systolic blood 2022-06-10 14:35:00 121 mm[Hg] Univer sity of pressure [facility] Diastolic blood 2022-06-10 14:35:00 79 mm[Hg] Unive rsity of [facility] Heart rate 2022-06-10 14:35:00 73 /min Universi ty [facility] Body temperature 2022-06-10 14:35:00 36.39 Teena [facility] Respiratory rate 2022-06-10 14:35:00 18 /[facility] Body height 2022-06-10 14:35:00 167.6 cm [facility] Body weight 2022-06-10 14:35:00 90.719 kg Universi ty [facility] BMI 2022-06-10 14:35:00 32.28 kg/m2 [facility] Oxygen saturation in 2022-06-10 14:35:00 98 /min [facility] Arterial blood by [facility] Pulse oximetry Branch Systolic blood 2022-05-30 16:45:00 124 mm[Hg] Univer sity of pressure [facility] Diastolic blood 2022-05-30 16:45:00 79 mm[Hg] Unive rsity of pressure [facility] Heart rate 2022-05-30 16:45:00 68 /min Universi ty of [facility] Respiratory rate 2022-05-30 16:45:00 20 /min [facility] Body height 2022-05-30 16:45:00 167.6 cm [facility] Body weight 2022-05-30 16:45:00 90.266 kg [facility] BMI 2022-05-30 16:45:00 32.12 kg/m2 [facility] Oxygen saturation in 2022-05-30 16:45:00 96 /min University of Arterial blood by [place] [facility] Pulse oximetry Branch Systolic blood 2022-02-28 14:04:00 118 mm[Hg] Univer sity of pressure [facility] Diastolic blood 2022-02-28 14:04:00 78 mm[Hg] Unive rsity of pressure [facility] Heart rate 2022-02-28 14:04:00 80 /min [facility] Body height 2022-02-28 14:04:00 167.6 cm [facility] Body weight 2022-02-28 14:04:00 92.08 kg [facility] BMI 2022-02-28 14:04:00 32.77 kg/m2 [facility] Oxygen saturation in 2022-02-28 14:04:00 97 /min University of Arterial blood by [place] [facility] Pulse oximetry Branch BP Systolic 2022-06-18 12:07:00 [...] Procedure Date / Time Performed Performing Clinician Sourc e REFERRAL- 2022-09-15 06:01:00 Doctor Unassigned, No [facility] REQUEST/RESPONSE Name Medical Branch XR HIPS 3 VW LEFT 2022-06-10 17:06:00 Robby Hyde [facility] FLU VACC (), 2022-05-30 17:15:43 Cher Pyle [facility] 6 MO-64 YRS, .5ML, Medical Branc h IM, QUAD (FLUCELVAX) HB ECG ROUTINE & 2022-05-30 16:40:04 Cher Pyle [facility] RHYTHM STRIP [facility] Plan of Care Planned Activity Planned Date Details Comments Source Goal Plan of Care Note [code = 56410-0] Goal Plan of Care Note [code = 27351-8] Goal Plan of Care Note [code = 44654-9] Goal Plan of Care Note [code = 31906-6] Goal Plan of Care Note [code = 37840-2] Goal Plan of Care Note [code = 14720-6] Goal Plan of Care Note [code = 00551-3] Goal Plan of Care Note [code = 22981-9] Goal Plan of Care Note [code = 47122-3] Goal Plan of Care Note [code = 15596-3] Goal Plan of Care Note [code = 02424-7] Goal Plan of Care Note [code = 13324-8] Goal Plan of Care Note [code = 02390-4] Goal Plan of Care Note [code = 97812-0] Goal Plan of Care Note [code = 84628-4] Goal Plan of Care Note [code = 88660-9] Goal Plan of Care Note [code = 55469-2] Goal Plan of Care Note [code = 25146-7] Goal Plan of Care Note [code = 60991-7] Goal Plan of Care Note [code = 99036-1] Goal Plan of Care Note [code = 98371-0] Goal Plan of Care Note [code = 40988-8] Goal Plan of Care Note [code = 10405-7] Goal Plan of Care Note [code = 75269-5] Goal Plan of Care Note [code = 43383-9] Goal Plan of Care Note [code = 91472-3] Goal Plan of Care Note [code = 52272-7] Goal Plan of Care Note [code = 16653-3] Goal Plan of Care Note [code = 28171-1] Goal Plan of Care Note [code = 31449-3] Goal Plan of Care Note [code = 82898-9] Goal Plan of Care Note [code = 74642-5] Goal Plan of Care Note [code = 94443-8] Goal Plan of Care Note [code = 74371-7] Goal Plan of Care Note [code = 12249-8] Goal Plan of Care Note [code = 64548-5] Goal Plan of Care Note [code = 31840-9] Goal Plan of Care Note [code = 51725-0] Goal Plan of Care Note [code = 50353-8] Goal Plan of Care Note [code = 09578-2] Goal Plan of Care Note [code = 67661-7] Goal Plan of Care Note [code = 35410-9] Goal Plan of Care Note [code = 08206-5] Goal Plan of Care Note [code = 81403-3] Goal Plan of Care Note [code = 95011-0] Goal Plan of Care Note [code = 75236-7] Goal Plan of Care Note [code = 61756-5] Goal Plan of Care Note [code = 81506-3] Goal Plan of Care Note [code = 14406-1] Goal Plan of Care Note [code = 76912-5] Goal Plan of Care Note [code = 63150-7] Goal Plan of Care Note [code = 72894-9] Goal Plan of Care Note [code = 42785-5] Goal Plan of Care Note [code = 70458-0] Goal Plan of Care Note [code = 97700-0] Goal Plan of Care Note [code = 27718-3] Goal Plan of Care Note [code = 03697-9] Goal Plan of Care Note [code = 72345-0] Goal Plan of Care Note [code = 21058-8] Goal Plan of Care Note [code = 25033-2] Goal Plan of Care Note [code = 13048-0] Goal Plan of Care Note [code = 96002-4] Goal Plan of Care Note [code = 66921-2] Goal Plan of Care Note [code = 87101-9] Goal Plan of Care Note [code = 99876-0] Goal Plan of Care Note [code = 98398-8] Goal Plan of Care Note [code = 66977-4] Goal Plan of Care Note [code = 51419-7] Goal Plan of Care Note [code = 09510-4] Goal Plan of Care Note [code = 16774-9] Goal Plan of Care Note [code = 87665-7] Goal Plan of Care Note [code = 87568-0] Goal Plan of Care Note [code = 05872-7] Goal Plan of Care Note [code = 01035-1] Goal Plan of Care Note [code = 30935-6] Goal Plan of Care Note [code = 03270-7] Goal Plan of Care Note [code = 69523-7] Goal Plan of Care Note [code = 69495-5] Goal Plan of Care Note [code = 81962-6] Goal Plan of Care Note [code = 01162-1] Goal Plan of Care Note [code = 27748-2] Goal Plan of Care Note [code = 89271-4] Goal Plan of Care Note [code = 63307-5] Goal Plan of Care Note [code = 19800-1] Goal Plan of Care Note [code = 80358-4] Goal Plan of Care Note [code = 15986-2] Goal Plan of Care Note [code = 79672-9] Goal Plan of Care Note [code = 09517-1] Goal Plan of Care Note [code = 13705-2] Goal Plan of Care Note [code = 37924-8] Goal Plan of Care Note [code = 78948-0] Goal Plan of Care Note [code = 47715-3] Goal Plan of Care Note [code = 34221-6] Goal Plan of Care Note [code = 71947-4] Goal Plan of Care Note [code = 06633-5] Goal Plan of Care Note [code = 60495-8] Goal Plan of Care Note [code = 05419-5] Goal Plan of Care Note [code = 63342-0] Goal Plan of Care Note [code = 36874-4] Goal Plan of Care Note [code = 12750-9] Goal Plan of Care Note [code = 97790-2] Goal Plan of Care Note [code = 10804-3] Goal Plan of Care Note [code = 91881-4] Goal Plan of Care Note [code = 36621-8] Goal Plan of Care Note [code = 33622-7] Goal Plan of Care Note [code = 13944-6] Goal Plan of Care Note [code = 63925-5] Goal Plan of Care Note [code = 89744-8] Goal Plan of Care Note [code = 83505-1] Goal Plan of Care Note [code = 34889-1] Goal Plan of Care Note [code = 20060-8] Goal Plan of Care Note [code = 44051-7] Goal Plan of Care Note [code = 22897-6] Goal Plan of Care Note [code = 29194-2] Goal Plan of Care Note [code = 65487-3] Goal Plan of Care Note [code = 91650-7] Goal Plan of Care Note [code = 28844-9] Goal Plan of Care Note [code = 60556-9] Goal Plan of Care Note [code = 94536-2] Goal Plan of Care Note [code = 64903-1] Goal Plan of Care Note [code = 75055-7] Goal Plan of Care Note [code = 38802-5] Goal Plan of Care Note [code = 52095-4] Goal Plan of Care Note [code = 84114-9] Goal Plan of Care Note [code = 74383-1] Encounters Start End Encounter Admission Attending Care Care Encounter Source Date/Time Date/Time Type Type Clinicians Facility Department ID 2022-08-11 Outpatient 3 [id number] ENCPL REF [id number] Encompa 15:06:39 [facility] [place] 2021-06-13 Inpatient STEFFIMartinMARCOS [facility] SCT [id number] Univers 10:21:20 clarence [facility] 2022-12-09 2022-12-09 Outpatient R BARRETT [facility] [id number] Univers 09:00:00 09:00:00 ROBBY lima [facility] 2022-09-29 2022-09-29 SHANIQUE Sparrow 1.2.840.114 10 [id number] Univers 00:00:00 00:00:00 [facility] 350.1.13.10 i [facility] 4.2.7.2.686 Aramis jose [id number] [address] 2022-09-15 2022-09-15 Orders Doctor BRISEIDA 1.2.840.114 [id number] Univers 00:00:00 00:00:00 Only Unassigned, ROEL 350.1.13.10 [facility] 4.2.7.2.686 Aramis as [id number] [address] 2022-09-06 2022-09-06 Out[facility] [id number] Univers 00:00:00 00:00:00 CHER lima o f [facility] 2022-09-05 2022-09-05 Refill [facility] 1.2.840.114 [id number] Univers 00:00:00 00:00:00 Cher LINN 350.1.13.10 [facility] [place] [id number] Ar dicpr NAL 9 [facility] 2022-08-30 2022-08-30 Telephone [facility] 1.2.278.560 [id number] Univers 00:00:00 00:00:00 Cher LINN 350.1.13.10 ity [facility] [place] [id number] Ar dicpr NAL 9 [facility] 2022-08-24 2022-08-24 [facility] 1.2.600.798 [id number] Univers 00:00:00 00:00:00 Cher LINN 350.1.13.10 [place] [id number] Ar dicpr NAL 9 [facility] 2022-08-22 2022-08-22 Outpatient MOHAN ESTRADA ENCCLR ENCCLR [id number] ENCCLR 00:00:00 00:00:00 ADMISSION 2022-08-12 2022-08-20 Inpatient 3 [facility] ENCPL BIN [id number] Encompa 22:40:00 11:00:00 herashaad, 1230 ss [facility] itation [facility] 2022-08-11 2022-08-11 Refill [facility] 1.2.840.114 [id number] Univers 00:00:00 00:00:00 Sendil Thu [place] 350.1.13.10 ity of [place] [id number] Ar dical NAL 9 [facility] 2022-07-14 2022-07-14 Telephone [facility] 1.2.541.216 [id number] Univers 00:00:00 00:00:00 Cher LINN 350.1.13.10 it[facility] [place] [id number] Ar dical NAL 9 [facility] 2022-07-12 2022-07-12 Outpatient [id number]-[id number] 00:00:00 00:00:00 Visit ch55-8809 s91-6763-7 -9243-c45 243-c45aa9 rb08u8ce5 8e6ac5 2022-07-06 2022-07-06 Outpatient YANI LOMELI [id number] 022 Gaurang 11:04:42 11:04:42 1[address] [place] 2022-06-27 2022-06-27 Outpatient [id number] 00:00:00 00:00:00 Visit 66h2-9kj4 7s1-7rs7-1 -54v2-zgk 0o8-dpj639 [id number] 09z789 2022-06-22 2022-06-22 Telephone [facility] 1.2.113.220 [id number] Univers 00:00:00 00:00:00 Sammi LINN 350.1.13.10 ity [facility] [place] [id number] Ar dical NAL [address] [place] [address] 2022-06-21 2022-06-21 Outpatient [facility] [id number] Univers 08:16:08 08:17:00 CHER lima o f [facility] 2022-06-18 2022-06-18 Outpatient YANI LOMELI [id number] Agurang 12:06:56 12:06:56 1105 F [place] 2022-06-18 2022-06-18 Outpatient [id number] [id number]-[id number] 00:00:00 00:00:00 Visit gq7y-6083 u7f-0228-k -z057-o18 745-e46d6d [id number] 410c42 2022-06-11 2022-06-11 Outpatient [facility] [id number] 022 Gaurang 09:10:51 09:10:51 1029 [address] [place] 2022-06-10 2022-06-10 [facility] 1.2.840.114 [id number] Univers 11:37:23 23:59:00 Encounter [facility] 350.1.13.10 ity [place] [id number] [facility] [address] 2022-06-10 2022-06-10 Cream Dipper [facility] 1.2.840.114 [id number] Univers 11:45:00 12:00:00 Visit [facility] 350.1.13.10 ity [place] [id number] [facility] [address] 2022-06-10 2022-06-10 Office [facility] 1.2.405.490 [id number] Univers 09:00:00 09:30:00 Visit [facility] 350.1.13.10 i ty [place] [id number] [facility] [address] 2022-06-10 2022-06-10 Outpatient R [facility] [id number] Univers 09:00:00 09:00:00 [facility] 2022-06-03 2022-06-03 Telephone [facility] 1.2.613.246 [id number] Univers 00:00:00 00:00:00 Cher LINN 350.1.13.10 ity [place] [id number] [facility] 059 [facility] 2022-06-01 2022-06-01 Telephone MIKAEL HydeIT 1.2.840.114 [id number] Univers 00:00:00 00:00:00 [facility] 350.1.13.10 i ty of [facility] 4.2.7.2.[place] [id number] [facility] [address] 2022-05-30 2022-05-30 Outpatient R [facility] [id number] Univers 11:20:00 12:21:10 CHER lima o f [facility] 2022-05-30 2022-05-30 Office [facility] 1.2.840.114 [id number] Univers 11:20:00 12:21:10 Visit Cher LINN 350.1.13.10 ity of [place] [id number] Ar dicpr NAL 9 [facility] 2022-05-30 2022-05-30 Cream Dipper 2, Adc Lab [facility] 1.2.840.114 [id number] Univers 10:45:00 11:00:00 Visit Sammi Cherry 350.1.13. 10 ity of [place] [id number] Ar dical NAL 353 [facility] 2022-05-27 2022-05-27 Outpatient R [facility] [id number] Univers 10:30:00 10:30:00 ity of [facility] 2022-05-19 2022-05-19 Telephone [facility] 1.2.026.816 [id number] Univers 00:00:00 00:00:00 Sammi LINN 350.1.13.10 ity of [place] [id number] Ar dical NAL 059 [facility] 2022-05-11 2022-05-11 Refill Jo Ann [facility] 1.2.840.114 [id number] Univers 00:00:00 00:00:00 Sammi LINN 350.1.13.10 ity of [place] [id number] Ar dical NAL 059 [facility] 2022-05-06 2022-05-06 Outpatient R BARRETT [facility] [id number] Univers 09:30:00 09:30:00 ROBBY [facility] 2022-04-26 2022-04-26 Cream Dipper [facility] UNIVERSIT 1.2.840.114 [id number] Univers 11:15:00 11:30:00 Visit Sammi Cherry 350.1.13. 10 ity of [facility] 4.2.7.2.[place] [id number] [facility] [address] 2022-04-26 2022-04-26 Outpatient R [facility] [id number] Univers 11:15:00 11:15:00 SENDIL [facility] 2022-04-26 2022-04-26 Outpatient R [facility] [id number] Univers 10:30:00 10:30:00 SENDIL [facility] 2022-04-19 2022-04-19 Emi Barrett [facility] 1.2.840.114 [id number] Univers 00:00:00 00:00:00 [facility] 350.1.13.10 i ty [place] [id number] [place] [address] 2022-04-11 2022-04-11 Outpatient R YVONNE [facility] [id number] Univers 10:00:00 10:00:00 BRISEIDA [facility] 2022-03-19 2022-03-19 Refill [facility] 1.2.840.114 [id number] Univers 00:00:00 00:00:00 [facility]amm[facility]13.10 [facility] [place] [id number] Ar dical NAL 059 [facility] 2022-03-15 2022-03-15 Outpatient R SHAY GOLDBERG [facility] [id number] Univers 11:00:00 11:00:00 SHAY GOLDBERG [facility] 2022-03-10 2022-03-10 Outpatient R JO ANN [facility] [id number] Univers 00:00:00 00:00:00 SENDIL ity [facility] 2022-03-10 2022-03-10 Outpatient R JO ANN [facility] [id number] Univers 00:00:00 00:00:00 SENDIL ity [facility] 2022-03-04 2022-03-04 Outpatient R JO ANN [facility] [id number] Univers 09:00:00 10:12:45 SENDIL ity [facility] 2022-03-04 2022-03-04 Outpatient R CHERRY [facility] [id number] Univers 09:00:00 10:12:45 SENDIL ity [facility] 2022-03-04 2022-03-04 Office [facility] 1.2.840.114 [id number] Univers 09:00:00 10:12:45 Visit Sammi LINN 350.1.13.10 ity [facility] [place] [id number] Ar dichina NAL 059 [facility] 2022-02-28 2022-02-28 Office Yusuf [facility] 1.2.840.114 [id number] Univers 09:20:00 09:26:58 Visit [facility] 350.1.13.10 ity [facility] 4.2.7.2.686 Aramis as HUGH?BLEA [id number] Ar dical KNEY 092 [facility] OFFICE [facility] 2022-02-28 2022-02-28 Outpatient SHAY ANNE [facility] [id number] Univers 09:20:00 09:26:58 SHAY GOLDBERG [facility] 2022-02-28 2022-02-28 Outpatient SHAY ANNE [facility] [id number] Univers 09:20:00 09:26:58 SHAY GOLDBERG [facility] 2022-02-28 2022-02-28 Outpatient SHAY ANNE [facility] [id number] Univers 09:20:00 09:20:00 SHAY GOLDBERG of [facility] 2022-02-28 2022-02-28 Orders Doctor BRISEIDA 1.2.840.114 [id number] Univers 00:00:00 00:00:00 Only Unassigned, ROEL 350.1.13.10 ity of [place] [facility] 4.2.7.2.686 Aramis as [id number] [address] 2022-02-25 2022-02-25 Refill [facility] 1.2.840.114 [id number] Univers 00:00:00 00:00:00 Sendil Thu LINN 350.1.13.10 ity [place] [id number] Ar brian[address] 2022-02-25 2022-02-25 Telephone [facility] 1.2.693.969 [id number] Univers 00:00:00 00:00:00 Sendil Thu LINN 350.1.13.10 [place] [id number] Ar brian[address] 2022-02-25 2022-02-25 Telephone [facility] 1.2.840.114 [id number] Univers 00:00:00 00:00:00 [facility] 350.1.13.10 ity of [place] 4.2.7.2.686 Aramis as HUGH?BLEA [id number] Ar brian[address] MEDICAL OFFICE [facility] 2021-12-10 2021-12-10 Outpatient R [facility] [id number] Univers 10:00:00 10:00:00 SENDIL ity [facility] 2021-12-10 2021-12-10 Outpatient R [facility] [id number] Univers 10:00:00 10:00:00 SENDIL ity [facility] 2021-12-09 2021-12-09 Telephone [facility] 1.2.760.855 [id number] Univers 00:00:00 00:00:00 Jj AMENIA 350.1.13.10 i ty [place] [id number] [address] 2021-10-19 2021-10-19 Emi Cherry [facility] 1.2.257.262 [id number] Univers 00:00:00 00:00:00 Sendil Thu LINN 350.1.13.10 ity [place] [id number] [address] 2021-10-16 2021-10-16 Refill [facility] 1.2.840.114 [id number] Univers 00:00:00 00:00:00 Sendil Thu LINN 350.1.13.10 ity [place] [id number] [address] 2021-10-12 2021-10-12 Outpatient R JO ANN [facility] [id number] Univers 10:00:00 10:00:00 SENDIL ity [facility] 2021-08-17 2021-08-17 EVONNE Johnston 1.2.183.404 [id number] Univers 00:00:00 00:00:00 Jj ROEL 350.1.13.10 it y of HOSPITAL 4.2.7.2.686 Aramis as [id number] [address] 2021-07-29 2021-07-29 Outpatient Jing HATFIELD [facility] [id number] Univers 13:00:00 13:00:00 JJ ity of [facility] 2021-07-28 2021-07-28 Emi Hatfield [facility] 1.2.535.377 [id number] Univers 00:00:00 00:00:00 Jj HEALTH 350.1.13.10 it y of [place] GARCIA [id number] [address] ([facility]) 2021-07-28 2021-07-28 Emi Hatfield PARADHA 1.2.817.358 [id number] Univers 00:00:00 00:00:00 Jj HEALTH 350.1.13.10 it y of [place].2.[place] [id number] [place] [address] [address] ([facility]) 2021-07-06 2021-07-06 Outpatient R ALYSIA [facility] [id number] Univers 08:00:00 23:59:00 JJ ity of [facility] 2021-07-06 2021-07-06 Hospital [facility] 1.2.840.114 [id number] Univers 08:00:00 23:59:00 Encounter Jj [place] 350.1.13.10 ity of [place] [id number] Ar dical NAL [address] [place] [address] 2021-07-06 2021-07-06 Outpatient [facility] [id number] Univers 08:00:00 08:00:00 JJ ity of [facility] 2021-06-29 2021-06-29 Outpatient R ALYSIA [facility] [id number] Univers 08:20:00 09:09:21 JJ ity of [facility] 2021-06-29 2021-06-29 Outpatient [facility] [id number] Univers 08:20:00 09:09:21 JJ ity of [facility] 2021-06-29 2021-06-29 [facility] [id number] Univers 08:20:00 09:09:21 JJ ity of [facility] 2021-06-29 2021-06-29 Office [facility] [id number] Univers 08:13:57 09:09:21 Visit Jj KAVEH [id number] i ty of [id number] [phone] Ar dical NAL 059 [facility] 2021-06-10 2021-06-10 Office Jo Ann [facility] [id number] Univers 10:12:34 10:44:46 Visit Sammi LINN [id number] ity [id number] [phone] Ar dicpr NAL [address] [facility] 2021-06-10 2021-06-10 Outpatient [facility] [id number] Univers 10:00:00 10:44:46 SENDIL ity [facility] 2021-06-10 2021-06-10 Outpatient R CHERRY [facility] [id number] Univers 10:00:00 10:44:46 SENDIL ity [facility] 2021-06-10 2021-06-10 Outpatient R [facility] [id number] Univers 10:00:00 10:44:46 [facility] 2021-06-08 [facility] Lemos [facility] [id number] Univers 08:00:00 23:59:00 Encounter (Tech), Ang-Db Emg/Ncv Testing Healt h [id number] ity [facility] [id number] Aramis as Hugh?Blea [phone] [address] Medical Office [facility] 2021-06-08 2021-06-08 [facility] [id number] Univers 08:00:00 23:59:00 [facility] o [facility] 2021-06-08 2021-06-08 Outpatient R [facility] [id number] Univers 08:00:00 23:59:00 [facility] 2021-06-02 2021-06-02 Refill [facility] [id number] Univers 00:00:00 00:00:00 Sendil Thu [place] [id number] ity [facility] [id number] [phone] [facility] [address] [facility] 2021-04-27 2021-04-27 Outpatient [facility] [id number] Univers 14:00:00 14:00:00 JJ ity [facility] 2021-04-27 2021-04-27 Outpatient Jing [facility] [id number] Univers 11:20:00 11:20:00 [facility] [facility] 2021-03-17 2021-03-17 Outpatient Jing CHERRY [facility] [id number] Univers 09:00:00 23:59:00 SENDIL ity [facility] 2021-03-17 2021-03-17 Outpatient Jing [facility] [id number] Univers 09:00:00 09:00:00 SENDIL ity [facility] 2021-03-16 2021-03-16 Outpatient SHAY ANNE [facility] [id number] Univers 08:40:00 10:18:17 SHAY GOLDBERG [facility] 2021-03-16 2021-03-16 Outpatient SHAY ANNE [facility] [id number] Univers 08:40:00 08:40:00 SHAY GOLDBERG [facility] 2021-03-09 2021-03-09 Outpatient SHAY ANNE [facility] [id number] Univers 13:40:00 13:40:00 SHAY GOLDBERG [facility] 2021-03-04 2021-03-04 Outpatient Jing [facility] [id number] Univers 08:00:00 08:00:00 SENDIL ity [facility] 2021-03-04 2021-03-04 Outpatient Jing [facility] [id number] Univers 08:00:00 08:00:00 SENDIL ity [facility] 2021-02-26 2021-02-26 Outpatient Jing [facility] [id number] Univers 09:12:48 23:59:00 FAVIAN ity [facility] 2021-02-26 2021-02-26 Outpatient Jing [facility] [id number] Univers 09:15:00 09:15:00 FAVIAN ity [facility] 2021-02-05 2021-02-05 Outpatient Jing [facility] [id number] Univers 09:00:00 09:00:00 SENDIL ity [facility] 2020-12-28 2020-12-28 Outpatient R JO ANN [facility] [id number] Univers 09:30:00 09:30:00 SENDIL ity [facility] 2020-12-24 2020-12-24 Outpatient R MARCOS ECKERT [facility] [id number] Univers 15:30:00 15:35:10 ity [facility] 2020-12-24 2020-12-24 Outpatient R [facility] [id number] Univers 14:30:00 14:30:00 ity [facility] 2020-12-17 2020-12-17 Outpatient R [facility] [id number] Univers 14:15:00 14:15:00 ity [facility] 2020-11-30 2020-12-07 Inpatient R MARCOS ECKERT [facility] [id number] Univers 06:44:00 19:20:[facility] 2020[facility]-30 2020-11-30 Surgery Evonne [id number] 07:15:00 15:03:00 [place] [id number] [facility] [id number] [id number] 2020-11-30 2020-11-30 Orders Doctor BRISEIDA [id number] 00:00:00 00:00:00 Only Unassigned, ROEL [id number] [place] [id number] 2020-11-26 2020-11-26 Laboratory Only, [facility] [id number] 09:39:58 09:54:58 Only Test [place] [id number] [place] [id number] [place] [id number] 2020-11-26 2020-11-26 Outpatient R [facility] [id number] Univers 09:45:00 09:45:00 ity [facility] 2020-11-23 2020-11-23 Outpatient R CHIQUITA [facility] [id number] Univers 10:00:00 10:00:00 NORMAN ity [facility] 2020-11-20 2020-11-20 Outpatient R BARRETT [facility] [id number] Univers 10:00:00 10:00:00 ROBBY [facility] 2020-11-20 2020-11-20 Outpatient R BARRETT [facility] [id number] Univers 10:00:00 10:00:00 ROBBY [facility] 2020-11-13 2020-11-13 Outpatient R MARCOS ECKERT [facility] [id number] Univers 12:06:38 23:59:00 [facility] 2020-11-13 2020-11-13 Outpatient R [facility] [id number] Univers 08:00:00 08:00:00 [facility] 2020-11-13 2020-11-13 Telephone Evonne [place] [id number] 00:00:00 00:00:00 Freeman Boles [id number] [facility] [id number] [id number] [facility] 2020-11-10 2020-11-10 Outpatient R [facility] [id number] Univers 10:30:00 10:30:00 [facility] 2020-10-28 2020-10-28 Office [facility] 1.2.840.114 [id number] 08:48:15 09:36:28 Visit Sammi Linn 350.1.13.10 [place] 4.2.7.2.686 [place] [id number] [facility] 059 [facility] 2020-10-28 2020-10-28 [facility] [id number] Univers 09:00:00 09:00:00 SENDIL [facility] 2020-10-23 2020-10-23 [facility] [id number] Univers 14:00:00 14:00:00 [facility] 2020-10-15 2020-10-15 Outpatient R CHIQUITA [facility] [id number] Univers 14:45:00 16:52:22 [facility] 2020-10-15 2020-10-15 Outpatient R CHIQUITA [facility] [id number] Univers 14:45:00 14:45:00 NORMAN ity [facility] 2020-09-24 2020-09-24 Outpatient R CHIQUITA [facility] [id number] Univers 08:30:00 09:40:43 NORMAN ity [facility] 2020-09-24 2020-09-24 Outpatient R CHIQUITA [facility] [id number] Univers 08:30:00 08:30:00 NORMAN ity [facility] 2020-09-10 2020-09-10 Outpatient R CHERRY [facility] [id number] Univers 09:00:00 09:00:00 SENDIL ity [facility] 2020-09-10 2020-09-10 Outpatient R JO ANN [facility] [id number] Univers 09:00:00 09:00:00 SENDIL ity [facility] 2020-08-21 2020-08-21 Outpatient R JO [facility] [id number] Univers 10:00:00 10:00:00 SENDIL ity [facility] 2020-08-04 2020-08-04 Outpatient R [facility] [id number] Univers 07:00:00 07:00:00 ity [facility] 2020-07-24 2020-07-24 [facility] [id number] Univers 14:00:00 14:00:00 [facility] 2020-07-23 2020-07-23 Outpatient R [facility] [id number] Univers 08:00:00 08:00:00 ity [facility] 2020-07-18 2020-07-18 Outpatient R [facility] [id number] Univers 08:00:00 08:00:00 ity [facility] 2020-07-17 2020-07-17 Outpatient R JO [facility] [id number] Univers 09:30:00 09:30:00 SENDIL ity [facility] 2020-05-26 2020-05-26 [facility] [id number] Univers 08:30:00 08:30:00 [facility] 2020-04-13 2020-04-13 Outpatient R CHERRY [facility] [id number] Univers 11:30:00 11:30:00 SENDSADE lima [facility] 2020-02-03 2020-02-03 Outpatient R BARRETT [facility] [id number] Univers 09:00:00 09:00:00 ROBBY lima [facility] 2020-02-03 2020-02-03 Outpatient R BARRETT [facility] [id number] Univers 08:15:00 08:15:00 ROBBY lima [facility] 2020-01-13 2020-01-13 Outpatient R BARRETT [facility] [id number] Univers 09:30:00 09:30:00 ROBBY lima [facility] 2019-11-21 2019-11-21 Outpatient R BARRETT [facility] [id number] Univers 11:00:00 11:00:00 ROBBY lima [facility] 2019-11-01 2019-11-01 Outpatient R BARRETT [facility] [id number] Univers 08:30:00 08:30:00 ROBBY lima [facility] 2019-11-01 2019-11-01 Outpatient R BARRETT [facility] [id number] Univers 08:30:00 08:30:00 ROBBY lima [facility] 2019-10-07 2019-10-07 Outpatient R BARRETT [facility] [id number] Univers 08:30:00 08:30:00 ROBBY lima [facility] 2019-10-07 2019-10-07 Outpatient R BARRETT [facility] [id number] Univers 08:30:00 08:30:00 ROBBY lima [facility] 2019-09-13 2019-09-13 Outpatient R BARRETT [facility] [id number] Univers 08:30:00 08:30:00 ROBBY ximena [facility] 2019-08-09 2019-08-09 Outpatient R BARRETT [facility] [id number] Univers 10:00:00 10:48:17 ROBBY lima [facility] 2019-05-10 2019-05-10 Outpatient R BARRETT [facility] [id number] Univers 15:30:00 15:30:00 ROBBY [facility] Results Test Description Test Time Test Comments Results Result Comments Source H. PYLORI (BREATH) 2022-07-07 00:00:00 Test Item Value Reference Range Interpretation Comme nts H. PYLORI (BREATH) (test code = 88046) POSITIVE H. PYLORI (BREATH)2022-07-07 00:00:00 Test Item Value Reference Range Interpretation Comments H. PYLORI (BREATH) (test code = POSITIVE 14708) TROPONIN [id number] 00:00:00 Test Item Value Reference Range Interpretation Comments TROPONIN T (test code = 4017) 13 NG/L TROPONIN [id number] 00:00:00 Test Item Value Reference Range Interpretation Comments TROPONIN T (test code = 4017) 13 NG/L CK, [id number] 00:00:00 Test Item Value Reference Range Interpretation Comments CK, TOTAL (test code = 2013) 66 U/L CK, [id number] 00:00:00 Test Item Value Reference Range Interpretation Comments CK, TOTAL (test code = 2013) 66 U/L VITAMIN D, 25 [id number] 00:00:00 Test Item Value Reference Range Interpretation Comments VITAMIN D, 25 OH (test code = 4958) 14 NG/ML VITAMIN D, 25 [id number] 00:00:00 Test Item Value Reference Range Interpretation Comments VITAMIN D, 25 OH (test code = 4958) 14 NG/ML VITAMIN D, 25 [id number] 00:00:00 Test Item Value Reference Range Interpretation Comments VITAMIN D, 25 OH (test code = 4958) 14 NG/ML VITAMIN D, 25 [id number] 00:00:00 Test Item Value Reference Range Interpretation Comments VITAMIN D, 25 OH (test code = 4958) 14 NG/ML LIPID [id number] 00:00:00 Test Item Value Reference Range Interpretation Comments CHOLESTEROL (test code = 2210) 93 MG/DL TRIGLYCERIDES (test code = 2232) 408 MG/DL HDL CHOLESTEROL (test code = 23 MG/DL 2220) CALC LDL CHOL (test code = 2237) (NOTE) MG/DL RISK RATIO LDL/HDL (test code = (NOTE) RATIO 2238) LIPID [id number] 00:00:00 Test Item Value Reference Range Interpretation Comments CHOLESTEROL (test code = 2210) 93 MG/DL TRIGLYCERIDES (test code = 2232) 408 MG/DL HDL CHOLESTEROL (test code = 23 MG/DL 2220) CALC LDL CHOL (test code = 2237) (NOTE) MG/DL RISK RATIO LDL/HDL (test code = (NOTE) RATIO 2238) COMPREHENSIVE METABOLIC [id number] 00:00:00 Test Item Value Reference Range Interpretation Comments GLUCOSE (test code = 2217) 224 MG/DL BUN (test code = 2208) 10 MG/DL CREATININE (test code = 2214) 1.01 MG/DL eGFR (2020 CKD-EPI) (test code 93 ML/MIN/1.73 = 13690) CALC BUN/CREAT (test code = 10 RATIO 2235) SODIUM (test code = 2231) 141 MEQ/L POTASSIUM (test code = 2228) 4.0 MEQ/L CHLORIDE (test code = 2215) 101 MEQ/L CARBON DIOXIDE (test code = 22 MEQ/L 220) CALCIUM (test code = 2209) 9.4 MG/DL PROTEIN, TOTAL (test code = 7.0 G/DL 2228) ALBUMIN (test code = 2201) 4.9 G/DL CALC GLOBULIN (test code = 2.1 G/DL 224) CALC A/G RATIO (test code = 2.3 RATIO 2234) BILIRUBIN, TOTAL (test code = 0.4 MG/DL 2206) ALKALINE PHOSPHATASE (test 73 U/L code = 2204) AST (test code = 2218) 11 U/L ALT (test code = 2219) 15 U/L COMPREHENSIVE METABOLIC [id number] 00:00:00 Test Item Value Reference Range Interpretation Comments GLUCOSE (test code = 2217) 224 MG/DL BUN (test code = 2208) 10 MG/DL CREATININE (test code = 2214) 1.01 MG/DL eGFR (2020 CKD-EPI) (test code 93 ML/MIN/1.73 = 17054) CALC BUN/CREAT (test code = 10 RATIO [...] (test code = 2219) 15 U/L LIPID [id number] 00:00:00 Test Item Value Reference Range Interpretation Comments CHOLESTEROL (test code = 2210) 93 MG/DL TRIGLYCERIDES (test code = 2232) 408 MG/DL HDL CHOLESTEROL (test code = 23 MG/DL 2220) CALC LDL CHOL (test code = 2237) (NOTE) MG/DL RISK RATIO LDL/HDL (test code = (NOTE) RATIO 2238) LIPID [id number] 00:00:00 Test Item Value Reference Range Interpretation Comments CHOLESTEROL (test code = 2210) 93 MG/DL TRIGLYCERIDES (test code = 2232) 408 MG/DL HDL CHOLESTEROL (test code = 23 MG/DL 2220) CALC LDL CHOL (test code = 2237) (NOTE) MG/DL RISK RATIO LDL/HDL (test code = (NOTE) RATIO 2238) COMPREHENSIVE METABOLIC [id number] 00:00:00 Test Item Value Reference Range Interpretation Comments GLUCOSE (test code = 2217) 224 MG/DL BUN (test code = 2208) 10 MG/DL CREATININE (test code = 2214) 1.01 MG/DL eGFR (2020 CKD-EPI) (test code 93 ML/MIN/1.73 = 28415) CALC BUN/CREAT (test code = 10 RATIO [...] code = 2219) 15 U/L COMPREHENSIVE METABOLIC [id number] 00:00:00 Test Item Value Reference Range Interpretation Comments GLUCOSE (test code = 2217) 224 MG/DL BUN (test code = 2208) 10 MG/DL CREATININE (test code = 2214) 1.01 MG/DL eGFR (2020 CKD-EPI) (test code 93 ML/MIN/1.73 = 76917) CALC BUN/CREAT (test code = 10 RATIO [...] code = 2219) 15 U/L CBC W/AUTO [id number] 00:00:00 Test Item Value Reference Range Interpretation [...] NUCLEATED RBCS (test code = 0.00 K/UL 58384) CBC W/AUTO [id number] 00:00:00 Test Item Value Reference Range Interpretation [...] NUCLEATED RBCS (test code = 0.00 K/UL 21691) CBC W/AUTO [id number] 00:00:00 Test Item Value Reference Range Interpretation [...] NUCLEATED RBCS (test code = 0.00 K/UL 07059) HEMOGLOBIN [id number] 00:00:00 Test Item Value Reference Range Interpretation Comments HEMOGLOBIN A1c (test code = 06310) 6.5 % HEMOGLOBIN [id number] 00:00:00 Test Item Value Reference Range Interpretation Comments HEMOGLOBIN A1c (test code = 23497) 6.5 % HEMOGLOBIN [id number] 00:00:00 Test Item Value Reference Range Interpretation Comments HEMOGLOBIN A1c (test code = 95381) 6.5 % CBC W/AUTO [id number] 00:00:00 Test Item Value Reference Range Interpretation [...] NUCLEATED RBCS (test code = 0.00 K/UL 50031) CBC W/AUTO [id number] 00:00:00 Test Item Value Reference Range Interpretation [...] NUCLEATED RBCS (test code = 0.00 K/UL 15526) CBC W/AUTO [id number] 00:00:00 Test Item Value Reference Range Interpretation [...] NUCLEATED RBCS (test code = 0.00 K/UL 53823) HEMOGLOBIN [id number] 00:00:00 Test Item Value Reference Range Interpretation Comments HEMOGLOBIN A1c (test code = 92713) 6.5 % HEMOGLOBIN [id number] 00:00:00 Test Item Value Reference Range Interpretation Comments HEMOGLOBIN A1c (test code = 28815) 6.5 % HEMOGLOBIN [id number] 00:00:00 Test Item Value Reference Range Interpretation Comments HEMOGLOBIN A1c (test code = 40216) 6.5 % CD4/CD8 LYMPHOCYTE [id number] 15:42:29 Test Item Value Reference Range Interpretation Comments ABSOLUTE LYMPHOCYTES (test code = 1718 PER UL [id number] 02510) PERCENT CD4 (test code = 50332) 24.0 % 34.0-65.0 L ABSOLUTE CD4 (test code = 54812) 413 PER UL 520-1470 L PERCENT CD8 (test code = 62767) 56.7 % 13.0-38.0 H ABSOLUTE CD8 (test code = 69130) 973 PER UL 205-920 H CD4/CD8 RATIO (test code = 49545) 0.42 0.92-3.41 L HEMOGLOBIN [id number] 06:58:19 Test Item Value Reference Range Interpretation Comments HEMOGLOBIN A1c (test 6.5 % 4.2-5.6 H [employer]ES code = 44177) ASSOCIATION [employer] FOR HGB A1C: PREDIABETES/INC REASED [...] OTHERWIS E INDICATED, ALL TESTING PER FORMED ATCLINICAL PATH [facility], [place] [address] [place] [address] 9490 LABORATORY DIRE CTOR: COBY SANCHEZ M.D. CLIA NUMBER [id number] [place]. [id number] CBC W/AUTO DIFF WITH [id number] 06:22:08 Test Item Value Reference Range Interpretation [...] RBCS 0.00 K/UL 0.00-0.11 (test code = 43354) LIPID [id number] 04:34:32 Test Item Value Reference Range Interpretation [...] MOREINFORMATION , SEE CLIENT ANNOUNCE MENT AT [email or web address] RISK RATIO LDL/HDL 1.86 RATIO <3.55 (test code = 223) COMPREHENSIVE METABOLIC [id number] 04:34:32 Test Item Value Reference Range Interpretation Comments GLUCOSE (test code = 91 MG/DL 70-99 2216) BUN (test code = 15 MG/DL 6-20 2207) CREATININE (test 1.15 MG/DL 0.80-1.40 code = 221) eGFR (2020 CKD-EPI) 79 ML/MIN/1.73 >60 (test code = 62623) CALC BUN/CREAT (test 13 RATIO 6-28 code = 2235) SODIUM (test code = 143 MEQ/L 747-828 7732) POTASSIUM (test code 4.2 MEQ/L 3.5-5.4 = 2227) CHLORIDE (test code 104 MEQ/L 95-107 = 2214) CARBON DIOXIDE (test 24 MEQ/L 19-31 code = 220) CALCIUM (test code = 10.3 MG/DL 8.5-10.5 2208) PROTEIN, TOTAL (test 7.6 G/DL 6.1-8.3 code = 222) ALBUMIN (test code = 5.1 G/DL 3.5-5.2 2200) CALC GLOBULIN (test 2.5 G/DL 1.9-3.7 code = 2240) CALC A/G RATIO (test 2.0 RATIO 1.0-2.6 code = 2234) BILIRUBIN, TOTAL 0.5 MG/DL See_Comment [Automated message] (test code = 2207) The syste m which generated this result transmit lilia reference range : <=1.2. The refe rence range was not u sed to interpret th is result as normal/abnormal . ALKALINE PHOSPHATASE 46 U/L 40-118 (test code = 220) AST (test code = 13 U/L 9-50 2217) ALT (test code = 16 U/L 5-50 2218) LIPID [id number] 00:00:00 Test Item Value Reference Range Interpretation Comments CHOLESTEROL (test code = 2210) 111 MG/DL TRIGLYCERIDES (test code = 2232) 245 MG/DL HDL CHOLESTEROL (test code = 2220) 28 MG/DL CALC LDL CHOL (test code = 2237) 52 MG/DL RISK RATIO LDL/HDL (test code = 1.86 RATIO 2238) LIPID [id number] 00:00:00 Test Item Value Reference Range Interpretation Comments CHOLESTEROL (test code = 2210) 111 MG/DL TRIGLYCERIDES (test code = 2232) 245 MG/DL HDL CHOLESTEROL (test code = 2220) 28 MG/DL CALC LDL CHOL (test code = 2237) 52 MG/DL RISK RATIO LDL/HDL (test code = 1.86 RATIO 2238) COMPREHENSIVE METABOLIC [id number] 00:00:00 Test Item Value Reference Range Interpretation Comments GLUCOSE (test code = 2217) 91 MG/DL BUN (test code = 2208) 15 MG/DL CREATININE (test code = 2214) 1.15 MG/DL eGFR (2020 CKD-EPI) (test code 79 ML/MIN/1.73 = 68306) CALC BUN/CREAT (test code = 13 RATIO [...] code = 2219) 16 U/L COMPREHENSIVE METABOLIC [id number] 00:00:00 Test Item Value Reference Range Interpretation Comments GLUCOSE (test code = 2217) 91 MG/DL BUN (test code = 2208) 15 MG/DL CREATININE (test code = 2214) 1.15 MG/DL eGFR (2020 CKD-EPI) (test code 79 ML/MIN/1.73 = 38396) CALC BUN/CREAT (test code = 13 RATIO [...] code = 2219) 16 U/L CBC W/AUTO [id number] 00:00:00 Test Item Value Reference Range Interpretation [...] NUCLEATED RBCS (test code = 0.00 K/UL 46053) CBC W/AUTO [id number] 00:00:00 Test Item Value Reference Range Interpretation [...] NUCLEATED RBCS (test code = 0.00 K/UL 86198) CBC W/AUTO [id number] 00:00:00 Test Item Value Reference Range Interpretation [...] NUCLEATED RBCS (test code = 0.00 K/UL 63996) CD4/CD8 LYMPHOCYTE [id number] 00:00:00 Test Item Value Reference Range Interpretation Comments ABSOLUTE LYMPHOCYTES (test code = 1718 PERUL 20356) PERCENT CD4 (test code = 56056) 24.0 % ABSOLUTE CD4 (test code = 67347) 413 PERUL PERCENT CD8 (test code = 79765) 56.7 % ABSOLUTE CD8 (test code = 45530) 973 PERUL CD4/CD8 RATIO (test code = 45233) 0.42 CD4/CD8 LYMPHOCYTE [id number] 00:00:00 Test Item Value Reference Range Interpretation Comments ABSOLUTE LYMPHOCYTES (test code = 1718 PERUL 64173) PERCENT CD4 (test code = 63202) 24.0 % ABSOLUTE CD4 (test code = 24237) 413 PERUL PERCENT CD8 (test code = 61167) 56.7 % ABSOLUTE CD8 (test code = 58960) 973 PERUL CD4/CD8 RATIO (test code = 82729) 0.42 HEMOGLOBIN [id number] 00:00:00 Test Item Value Reference Range Interpretation Comments HEMOGLOBIN A1c (test code = 21233) 6.5 % HEMOGLOBIN [id number] 00:00:00 Test Item Value Reference Range Interpretation Comments HEMOGLOBIN A1c (test code = 65187) 6.5 % HEMOGLOBIN [id number] 00:00:00 Test Item Value Reference Range Interpretation Comments HEMOGLOBIN A1c (test code = 49164) 6.5 % LIPID [id number] 00:00:00 Test Item Value Reference Range Interpretation Comments CHOLESTEROL (test code = 2210) 111 MG/DL TRIGLYCERIDES (test code = 2232) 245 MG/DL HDL CHOLESTEROL (test code = 2220) 28 MG/DL CALC LDL CHOL (test code = 2237) 52 MG/DL RISK RATIO LDL/HDL (test code = 1.86 RATIO 2238) LIPID [id number] 00:00:00 Test Item Value Reference Range Interpretation Comments CHOLESTEROL (test code = 2210) 111 MG/DL TRIGLYCERIDES (test code = 2232) 245 MG/DL HDL CHOLESTEROL (test code = 2220) 28 MG/DL CALC LDL CHOL (test code = 2237) 52 MG/DL RISK RATIO LDL/HDL (test code = 1.86 RATIO 2238) COMPREHENSIVE METABOLIC [id number] 00:00:00 Test Item Value Reference Range Interpretation Comments GLUCOSE (test code = 2217) 91 MG/DL BUN (test code = 2208) 15 MG/DL CREATININE (test code = 2214) 1.15 MG/DL eGFR (2020 CKD-EPI) (test code 79 ML/MIN/1.73 = 37545) CALC BUN/CREAT (test code = 13 RATIO [...] code = 2219) 16 U/L COMPREHENSIVE METABOLIC [id number] 00:00:00 Test Item Value Reference Range Interpretation Comments GLUCOSE (test code = 2217) 91 MG/DL BUN (test code = 2208) 15 MG/DL CREATININE (test code = 2214) 1.15 MG/DL eGFR (2020 CKD-EPI) (test code 79 ML/MIN/1.73 = 79252) CALC BUN/CREAT (test code = 13 RATIO [...] code = 2219) 16 U/L CBC W/AUTO [id number] 00:00:00 Test Item Value Reference Range Interpretation [...] NUCLEATED RBCS (test code = 0.00 K/UL 42682) CBC W/AUTO [id number] 00:00:00 Test Item Value Reference Range Interpretation [...] NUCLEATED RBCS (test code = 0.00 K/UL 99399) CBC W/AUTO [id number] 00:00:00 Test Item Value Reference Range Interpretation [...] NUCLEATED RBCS (test code = 0.00 K/UL 73283) CD4/CD8 LYMPHOCYTE [id number] 00:00:00 Test Item Value Reference Range Interpretation Comments ABSOLUTE LYMPHOCYTES (test code = 1718 PERUL 88375) PERCENT CD4 (test code = 91361) 24.0 % ABSOLUTE CD4 (test code = 58148) 413 PERUL PERCENT CD8 (test code = 94599) 56.7 % ABSOLUTE CD8 (test code = 33133) 973 PERUL CD4/CD8 RATIO (test code = 00053) 0.42 CD4/CD8 LYMPHOCYTE [id number] 00:00:00 Test Item Value Reference Range Interpretation Comments ABSOLUTE LYMPHOCYTES (test code = 1718 PERUL 66032) PERCENT CD4 (test code = 55159) 24.0 % ABSOLUTE CD4 (test code = 31439) 413 PERUL PERCENT CD8 (test code = 51057) 56.7 % ABSOLUTE CD8 (test code = 56102) 973 PERUL CD4/CD8 RATIO (test code = 98864) 0.42 HEMOGLOBIN [id number] 00:00:00 Test Item Value Reference Range Interpretation Comments HEMOGLOBIN A1c (test code = 99025) 6.5 % HEMOGLOBIN [id number] 00:00:00 Test Item Value Reference Range Interpretation Comments HEMOGLOBIN A1c (test code = 83998) 6.5 % HEMOGLOBIN [id number] 00:00:00 Test Item Value Reference Range Interpretation Comments HEMOGLOBIN A1c (test code = 40720) 6.5 % LIPID [id number] 00:00:00 Test Item Value Reference Range Interpretation Comments CHOLESTEROL (test code = 2210) 111 MG/DL TRIGLYCERIDES (test code = 2232) 245 MG/DL HDL CHOLESTEROL (test code = 2220) 28 MG/DL CALC LDL CHOL (test code = 2237) 52 MG/DL RISK RATIO LDL/HDL (test code = 1.86 RATIO 2238) LIPID [id number] 00:00:00 Test Item Value Reference Range Interpretation Comments CHOLESTEROL (test code = 2210) 111 MG/DL TRIGLYCERIDES (test code = 2232) 245 MG/DL HDL CHOLESTEROL (test code = 2220) 28 MG/DL CALC LDL CHOL (test code = 2237) 52 MG/DL RISK RATIO LDL/HDL (test code = 1.86 RATIO 2238) COMPREHENSIVE METABOLIC [id number] 00:00:00 Test Item Value Reference Range Interpretation Comments GLUCOSE (test code = 2217) 91 MG/DL BUN (test code = 2208) 15 MG/DL CREATININE (test code = 2214) 1.15 MG/DL eGFR (2020 CKD-EPI) (test code 79 ML/MIN/1.73 = 42036) CALC BUN/CREAT (test code = 13 RATIO [...] code = 2219) 16 U/L COMPREHENSIVE METABOLIC [id number] 00:00:00 Test Item Value Reference Range Interpretation Comments GLUCOSE (test code = 2217) 91 MG/DL BUN (test code = 2208) 15 MG/DL CREATININE (test code = 2214) 1.15 MG/DL eGFR (2020 CKD-EPI) (test code 79 ML/MIN/1.73 = 73053) CALC BUN/CREAT (test code = 13 RATIO [...] code = 2219) 16 U/L CBC W/AUTO [id number] 00:00:00 Test Item Value Reference Range Interpretation [...] NUCLEATED RBCS (test code = 0.00 K/UL 02845) CBC W/AUTO [id number] 00:00:00 Test Item Value Reference Range Interpretation [...] NUCLEATED RBCS (test code = 0.00 K/UL 12621) CBC W/AUTO [id number] 00:00:00 Test Item Value Reference Range Interpretation [...] NUCLEATED RBCS (test code = 0.00 K/UL 16408) CD4/CD8 LYMPHOCYTE [id number] 00:00:00 Test Item Value Reference Range Interpretation Comments ABSOLUTE LYMPHOCYTES (test code = 1718 PERU 89321) PERCENT CD4 (test code = 30273) 24.0 % ABSOLUTE CD4 (test code = 84122) 413 PERUL PERCENT CD8 (test code = 24189) 56.7 % ABSOLUTE CD8 (test code = 99355) 973 PERUL CD4/CD8 RATIO (test code = 73582) 0.42 CD4/CD8 LYMPHOCYTE [id number] 00:00:00 Test Item Value Reference Range Interpretation Comments ABSOLUTE LYMPHOCYTES (test code = 1718 PERUL 80906) PERCENT CD4 (test code = 63656) 24.0 % ABSOLUTE CD4 (test code = 71291) 413 PERUL PERCENT CD8 (test code = 47448) 56.7 % ABSOLUTE CD8 (test code = 12680) 973 PERUL CD4/CD8 RATIO (test code = 99207) 0.42 HEMOGLOBIN [id number] 00:00:00 Test Item Value Reference Range Interpretation Comments HEMOGLOBIN A1c (test code = 96575) 6.5 % HEMOGLOBIN [id number] 00:00:00 Test Item Value Reference Range Interpretation Comments HEMOGLOBIN A1c (test code = 74944) 6.5 % HEMOGLOBIN [id number] 00:00:00 Test Item Value Reference Range Interpretation Comments HEMOGLOBIN A1c (test code = 87254) 6.5 % HEMOGLOBIN [id number] 00:00:00 Test Item Value Reference Range Interpretation Comments HEMOGLOBIN A1c (test code = 89376) 7.7 % HEMOGLOBIN [id number] 00:00:00 Test Item Value Reference Range Interpretation Comments HEMOGLOBIN A1c (test code = 30163) 7.7 % HEMOGLOBIN [id number] 00:00:00 Test Item Value Reference Range Interpretation Comments HEMOGLOBIN A1c (test code = 89319) 7.7 % HEMOGLOBIN [id number] 00:00:00 Test Item Value Reference Range Interpretation Comments HEMOGLOBIN A1c (test code = 42526) 7.7 % HEMOGLOBIN [id number] 00:00:00 Test Item Value Reference Range Interpretation Comments HEMOGLOBIN A1c (test code = 38341) 7.7 % HEMOGLOBIN [id number] 00:00:00 Test Item Value Reference Range Interpretation Comments HEMOGLOBIN A1c (test code = 83833) 7.7 % HEMOGLOBIN [id number] 00:00:00 Test Item Value Reference Range Interpretation Comments HEMOGLOBIN A1c (test code = 05299) 7.7 % HEMOGLOBIN [id number] 00:00:00 Test Item Value Reference Range Interpretation Comments HEMOGLOBIN A1c (test code = 93620) 7.7 % HEMOGLOBIN [id number] 00:00:00 Test Item Value Reference Range Interpretation Comments HEMOGLOBIN A1c (test code = 75504) 7.7 % CBC W/AUTO [id number] 00:00:00 Test Item Value Reference Range Interpretation [...] code = 1015) 154 K/UL CBC W/AUTO [id number] 00:00:00 Test Item Value Reference Range Interpretation [...] code = 1015) 154 K/UL CBC W/AUTO [id number] 00:00:00 Test Item Value Reference Range Interpretation [...] (test code = 1015) 154 K/UL HEMOGLOBIN [id number] 00:00:00 Test Item Value Reference Range Interpretation Comments HEMOGLOBIN A1c (test code = 56708) 7.9 % HEMOGLOBIN [id number] 00:00:00 Test Item Value Reference Range Interpretation Comments HEMOGLOBIN A1c (test code = 21849) 7.9 % HEMOGLOBIN [id number] 00:00:00 Test Item Value Reference Range Interpretation Comments HEMOGLOBIN A1c (test code = 91818) 7.9 % COMPREHENSIVE METABOLIC [id number] 00:00:00 Test Item Value Reference Range Interpretation Comments GLUCOSE (test code = 2217) 146 MG/DL BUN (test code = 2208) 10 MG/DL CREATININE (test code = 2214) 1.03 MG/DL eGFR AMER. (test code 101 ML/MIN/1.73 = 59946) eGFR NON- AMER. (test 87 ML/MIN/1.73 code = 66147) CALC BUN/CREAT (test code = 10 RATIO [...] code = 2219) 14 U/L COMPREHENSIVE METABOLIC [id number] 00:00:00 Test Item Value Reference Range Interpretation Comments GLUCOSE (test code = 2217) 146 MG/DL BUN (test code = 2208) 10 MG/DL CREATININE (test code = 2214) 1.03 MG/DL eGFR AMER. (test code 101 ML/MIN/1.73 = 90888) eGFR NON- AMER. (test 87 ML/MIN/1.73 code = 59836) CALC BUN/CREAT (test code = 10 RATIO 2235) SODIUM (test code = 2231) 138 MEQ/L POTASSIUM (test code = 2228) 4.5 MEQ/L CHLORIDE (test code = 2215) 100 MEQ/L CARBON DIOXIDE (test code = 24 MEQ/L 2205) CALCIUM (test code = 2209) 9.7 MG/DL PROTEIN, TOTAL (test code = 7.7 G/DL 2228) ALBUMIN (test code = 220) 4.8 G/DL CALC GLOBULIN (test code = 2.9 G/DL 2239) CALC A/G RATIO (test code = 1.7 RATIO 4) BILIRUBIN, TOTAL (test code = 0.5 MG/DL 2206) ALKALINE PHOSPHATASE (test 63 U/L code = 2204) AST (test code = 2218) 12 U/L ALT (test code = 2219) 14 U/L LIPID [id number] 00:00:00 Test Item Value Reference Range Interpretation Comments CHOLESTEROL (test code = 2210) 104 MG/DL TRIGLYCERIDES (test code = 2232) 216 MG/DL HDL CHOLESTEROL (test code = 2220) 24 MG/DL CALC LDL CHOL (test code = 2237) 52 MG/DL RISK RATIO LDL/HDL (test code = 2.17 RATIO 2238) LIPID [id number] 00:00:00 Test Item Value Reference Range Interpretation Comments CHOLESTEROL (test code = 2210) 104 MG/DL TRIGLYCERIDES (test code = 2232) 216 MG/DL HDL CHOLESTEROL (test code = 2220) 24 MG/DL CALC LDL CHOL (test code = 2237) 52 MG/DL RISK RATIO LDL/HDL (test code = 2.17 RATIO 2238) CK, [id number] 00:00:00 Test Item Value Reference Range Interpretation Comments CK, TOTAL (test code = 2013) 57 U/L CK, [id number] 00:00:00 Test Item Value Reference Range Interpretation Comments CK, TOTAL (test code = 2013) 57 U/L CBC W/AUTO [id number] 00:00:00 Test Item Value Reference Range Interpretation [...] code = 1015) 154 K/UL CBC W/AUTO [id number] 00:00:00 Test Item Value Reference Range Interpretation [...] code = 1015) 154 K/UL CBC W/AUTO [id number] 00:00:00 Test Item Value Reference Range Interpretation [...] (test code = 1015) 154 K/UL HEMOGLOBIN [id number] 00:00:00 Test Item Value Reference Range Interpretation Comments HEMOGLOBIN A1c (test code = 64573) 7.9 % HEMOGLOBIN [id number] 00:00:00 Test Item Value Reference Range Interpretation Comments HEMOGLOBIN A1c (test code = 33117) 7.9 % HEMOGLOBIN [id number] 00:00:00 Test Item Value Reference Range Interpretation Comments HEMOGLOBIN A1c (test code = 46934) 7.9 % COMPREHENSIVE METABOLIC [id number] 00:00:00 Test Item Value Reference Range Interpretation Comments GLUCOSE (test code = 2217) 146 MG/DL BUN (test code = 2208) 10 MG/DL CREATININE (test code = 2214) 1.03 MG/DL eGFR AMER. (test code 101 ML/MIN/1.73 = 41386) eGFR NON- AMER. (test 87 ML/MIN/1.73 code = 32767) CALC BUN/CREAT (test code = 10 RATIO [...] code = 2219) 14 U/L COMPREHENSIVE METABOLIC [id number] 00:00:00 Test Item Value Reference Range Interpretation Comments GLUCOSE (test code = 2217) 146 MG/DL BUN (test code = 2208) 10 MG/DL CREATININE (test code = 2214) 1.03 MG/DL eGFR AMER. (test code 101 ML/MIN/1.73 = 14814) eGFR NON- AMER. (test 87 ML/MIN/1.73 code = 24264) CALC BUN/CREAT (test code = 10 RATIO 2235) SODIUM (test code = 2231) 138 MEQ/L POTASSIUM (test code = 2228) 4.5 MEQ/L CHLORIDE (test code = 2215) 100 MEQ/L CARBON DIOXIDE (test code = 24 MEQ/L 2205) CALCIUM (test code = 2209) 9.7 MG/DL PROTEIN, TOTAL (test code = 7.7 G/DL 2228) ALBUMIN (test code = 220) 4.8 G/DL CALC GLOBULIN (test code = 2.9 G/DL 2239) CALC A/G RATIO (test code = 1.7 RATIO 2233) BILIRUBIN, TOTAL (test code = 0.5 MG/DL 2206) ALKALINE PHOSPHATASE (test 63 U/L code = 2204) AST (test code = 2218) 12 U/L ALT (test code = 2219) 14 U/L LIPID [id number] 00:00:00 Test Item Value Reference Range Interpretation Comments CHOLESTEROL (test code = 2210) 104 MG/DL TRIGLYCERIDES (test code = 2232) 216 MG/DL HDL CHOLESTEROL (test code = 2220) 24 MG/DL CALC LDL CHOL (test code = 2237) 52 MG/DL RISK RATIO LDL/HDL (test code = 2.17 RATIO 2238) LIPID [id number] 00:00:00 Test Item Value Reference Range Interpretation Comments CHOLESTEROL (test code = 2210) 104 MG/DL TRIGLYCERIDES (test code = 2232) 216 MG/DL HDL CHOLESTEROL (test code = 2220) 24 MG/DL CALC LDL CHOL (test code = 2237) 52 MG/DL RISK RATIO LDL/HDL (test code = 2.17 RATIO 2238) CK, [id number] 00:00:00 Test Item Value Reference Range Interpretation Comments CK, TOTAL (test code = 2013) 57 U/L CK, [id number] 00:00:00 Test Item Value Reference Range Interpretation Comments CK, TOTAL (test code = 2013) 57 U/L CBC W/AUTO [id number] 00:00:00 Test Item Value Reference Range Interpretation [...] code = 1015) 154 K/UL CBC W/AUTO [id number] 00:00:00 Test Item Value Reference Range Interpretation [...] code = 1015) 154 K/UL CBC W/AUTO [id number] 00:00:00 Test Item Value Reference Range Interpretation [...] (test code = 1015) 154 K/UL HEMOGLOBIN [id number] 00:00:00 Test Item Value Reference Range Interpretation Comments HEMOGLOBIN A1c (test code = 41164) 7.9 % HEMOGLOBIN [id number] 00:00:00 Test Item Value Reference Range Interpretation Comments HEMOGLOBIN A1c (test code = 66060) 7.9 % HEMOGLOBIN [id number] 00:00:00 Test Item Value Reference Range Interpretation Comments HEMOGLOBIN A1c (test code = 86823) 7.9 % COMPREHENSIVE METABOLIC [id number] 00:00:00 Test Item Value Reference Range Interpretation Comments GLUCOSE (test code = 2217) 146 MG/DL BUN (test code = 2208) 10 MG/DL CREATININE (test code = 2214) 1.03 MG/DL eGFR AMER. (test code 101 ML/MIN/1.73 = 21906) eGFR NON- AMER. (test 87 ML/MIN/1.73 code = 24259) CALC BUN/CREAT (test code = 10 RATIO [...] code = 2219) 14 U/L COMPREHENSIVE METABOLIC [id number] 00:00:00 Test Item Value Reference Range Interpretation Comments GLUCOSE (test code = 2217) 146 MG/DL BUN (test code = 2208) 10 MG/DL CREATININE (test code = 2214) 1.03 MG/DL eGFR AMER. (test code 101 ML/MIN/1.73 = 58557) eGFR NON- AMER. (test 87 ML/MIN/1.73 code = 53138) CALC BUN/CREAT (test code = 10 RATIO [...] (test code = 2219) 14 U/L LIPID [id number] 00:00:00 Test Item Value Reference Range Interpretation Comments CHOLESTEROL (test code = 2210) 104 MG/DL TRIGLYCERIDES (test code = 2232) 216 MG/DL HDL CHOLESTEROL (test code = 2220) 24 MG/DL CALC LDL CHOL (test code = 2237) 52 MG/DL RISK RATIO LDL/HDL (test code = 2.17 RATIO 2238) LIPID [id number] 00:00:00 Test Item Value Reference Range Interpretation Comments CHOLESTEROL (test code = 2210) 104 MG/DL TRIGLYCERIDES (test code = 2232) 216 MG/DL HDL CHOLESTEROL (test code = 2220) 24 MG/DL CALC LDL CHOL (test code = 2237) 52 MG/DL RISK RATIO LDL/HDL (test code = 2.17 RATIO 2238) CK, [id number] 00:00:00 Test Item Value Reference Range Interpretation Comments CK, TOTAL (test code = 2013) 57 U/L CK, [id number] 00:00:00 Test Item Value Reference Range Interpretation Comments CK, TOTAL (test code = 2013) 57 U/L CK, [id number] 00:00:00 Test Item Value Reference Range Interpretation Comments CK, TOTAL (test code = 2013) 48 U/L MICROALBUMIN/CREATININE, RANDOM AND [id number] 00:00:00 Test Item Value Reference Range Interpretation Comments CREATININE, URINE, CONC. (test 21.2 MG/DL code = 2072) ALBUMIN, URINE, RANDOM (test code 4.6 MG/DL = 11826) CALC ALBUMIN/CREAT, RND (test code 217 MG/G = 02566) MICROALBUMIN/CREATININE, RANDOM AND [id number] 00:00:00 Test Item Value Reference Range Interpretation Comments CREATININE, URINE, CONC. (test 21.2 MG/DL code = 2072) ALBUMIN, URINE, RANDOM (test code 4.6 MG/DL = 58948) CALC ALBUMIN/CREAT, RND (test code 217 MG/G = 58834) CD4/CD8 LYMPHOCYTE [id number] 00:00:00 Test Item Value Reference Range Interpretation Comments ABSOLUTE LYMPHOCYTES (test code = 1127 PERUL 48075) PERCENT CD4 (test code = 44642) 27.7 % ABSOLUTE CD4 (test code = 23863) 312 PERUL PERCENT CD8 (test code = 92898) 54.2 % ABSOLUTE CD8 (test code = 16713) 611 PERUL CD4/CD8 RATIO (test code = 43379) 0.51 CD4/CD8 LYMPHOCYTE [id number] 00:00:00 Test Item Value Reference Range Interpretation Comments ABSOLUTE LYMPHOCYTES (test code = 1127 PERUL 50591) PERCENT CD4 (test code = 61214) 27.7 % ABSOLUTE CD4 (test code = 10075) 312 PERUL PERCENT CD8 (test code = 97998) 54.2 % ABSOLUTE CD8 (test code = 64457) 611 PERUL CD4/CD8 RATIO (test code = 42697) 0.51 LIPID [id number] 00:00:00 Test Item Value Reference Range Interpretation Comments CHOLESTEROL (test code = 2210) 99 MG/DL TRIGLYCERIDES (test code = 2232) 344 MG/DL HDL CHOLESTEROL (test code = 2220) 20 MG/DL CALC LDL CHOL (test code = 2237) 43 MG/DL RISK RATIO LDL/HDL (test code = 2.15 RATIO 2238) LIPID [id number] 00:00:00 Test Item Value Reference Range Interpretation Comments CHOLESTEROL (test code = 2210) 99 MG/DL TRIGLYCERIDES (test code = 2232) 344 MG/DL HDL CHOLESTEROL (test code = 2220) 20 MG/DL CALC LDL CHOL (test code = 2237) 43 MG/DL RISK RATIO LDL/HDL (test code = 2.15 RATIO 2238) HEMOGLOBIN [id number] 00:00:00 Test Item Value Reference Range Interpretation Comments HEMOGLOBIN A1c (test code = 54707) 9.6 % HEMOGLOBIN [id number] 00:00:00 Test Item Value Reference Range Interpretation Comments HEMOGLOBIN A1c (test code = 28680) 9.6 % HEMOGLOBIN [id number] 00:00:00 Test Item Value Reference Range Interpretation Comments HEMOGLOBIN A1c (test code = 52965) 9.6 % CBC W/AUTO [id number] 00:00:00 Test Item Value Reference Range Interpretation [...] code = 1015) 152 K/UL CBC W/AUTO [id number] 00:00:00 Test Item Value Reference Range Interpretation [...] code = 1015) 152 K/UL CBC W/AUTO [id number] 00:00:00 Test Item Value Reference Range Interpretation [...] code = 1015) 152 K/UL COMPREHENSIVE METABOLIC [id number] 00:00:00 Test Item Value Reference Range Interpretation Comments GLUCOSE (test code = 2217) 211 MG/DL BUN (test code = 2208) 15 MG/DL CREATININE (test code = 2214) 0.96 MG/DL eGFR AMER. (test code 111 ML/MIN/1.73 = 26152) eGFR NON- AMER. (test 96 ML/MIN/1.73 code = 58765) CALC BUN/CREAT (test code = 16 RATIO [...] code = 2219) 20 U/L COMPREHENSIVE METABOLIC [id number] 00:00:00 Test Item Value Reference Range Interpretation Comments GLUCOSE (test code = 2217) 211 MG/DL BUN (test code = 2208) 15 MG/DL CREATININE (test code = 2214) 0.96 MG/DL eGFR AMER. (test code 111 ML/MIN/1.73 = 32076) eGFR NON- AMER. (test 96 ML/MIN/1.73 code = 67219) CALC BUN/CREAT (test code = 16 RATIO [...] (test code = 2219) 20 U/L CK, [id number] 00:00:00 Test Item Value Reference Range Interpretation Comments CK, TOTAL (test code = 2013) 48 U/L CK, [id number] 00:00:00 Test Item Value Reference Range Interpretation Comments CK, TOTAL (test code = 2013) 48 U/L MICROALBUMIN/CREATININE, RANDOM AND [id number] 00:00:00 Test Item Value Reference Range Interpretation Comments CREATININE, URINE, CONC. (test 21.2 MG/DL code = 2072) ALBUMIN, URINE, RANDOM (test code 4.6 MG/DL = 74714) CALC ALBUMIN/CREAT, RND (test code 217 MG/G = 44936) MICROALBUMIN/CREATININE, RANDOM AND [id number] 00:00:00 Test Item Value Reference Range Interpretation Comments CREATININE, URINE, CONC. (test 21.2 MG/DL code = 2072) ALBUMIN, URINE, RANDOM (test code 4.6 MG/DL = 25175) CALC ALBUMIN/CREAT, RND (test code 217 MG/G = 26447) CD4/CD8 LYMPHOCYTE [id number] 00:00:00 Test Item Value Reference Range Interpretation Comments ABSOLUTE LYMPHOCYTES (test code = 1127 PERUL 52689) PERCENT CD4 (test code = 28097) 27.7 % ABSOLUTE CD4 (test code = 96700) 312 PERUL PERCENT CD8 (test code = 27140) 54.2 % ABSOLUTE CD8 (test code = 88951) 611 PERUL CD4/CD8 RATIO (test code = 09893) 0.51 CD4/CD8 LYMPHOCYTE [id number] 00:00:00 Test Item Value Reference Range Interpretation Comments ABSOLUTE LYMPHOCYTES (test code = 1127 PERUL 49367) PERCENT CD4 (test code = 68624) 27.7 % ABSOLUTE CD4 (test code = 31727) 312 PERUL PERCENT CD8 (test code = 49050) 54.2 % ABSOLUTE CD8 (test code = 67365) 611 PERUL CD4/CD8 RATIO (test code = 08550) 0.51 LIPID [id number] 00:00:00 Test Item Value Reference Range Interpretation Comments CHOLESTEROL (test code = 2210) 99 MG/DL TRIGLYCERIDES (test code = 2232) 344 MG/DL HDL CHOLESTEROL (test code = 2220) 20 MG/DL CALC LDL CHOL (test code = 2237) 43 MG/DL RISK RATIO LDL/HDL (test code = 2.15 RATIO 2238) LIPID [id number] 00:00:00 Test Item Value Reference Range Interpretation Comments CHOLESTEROL (test code = 2210) 99 MG/DL TRIGLYCERIDES (test code = 2232) 344 MG/DL HDL CHOLESTEROL (test code = 2220) 20 MG/DL CALC LDL CHOL (test code = 2237) 43 MG/DL RISK RATIO LDL/HDL (test code = 2.15 RATIO 8) HEMOGLOBIN [id number] 00:00:00 Test Item Value Reference Range Interpretation Comments HEMOGLOBIN A1c (test code = 15786) 9.6 % HEMOGLOBIN [id number] 00:00:00 Test Item Value Reference Range Interpretation Comments HEMOGLOBIN A1c (test code = 50152) 9.6 % HEMOGLOBIN [id number] 00:00:00 Test Item Value Reference Range Interpretation Comments HEMOGLOBIN A1c (test code = 50406) 9.6 % CBC W/AUTO [id number] 00:00:00 Test Item Value Reference Range Interpretation [...] code = 1015) 152 K/UL CBC W/AUTO [id number] 00:00:00 Test Item Value Reference Range Interpretation [...] code = 1015) 152 K/UL CBC W/AUTO [id number] 00:00:00 Test Item Value Reference Range Interpretation [...] code = 1015) 152 K/UL COMPREHENSIVE METABOLIC [id number] 00:00:00 Test Item Value Reference Range Interpretation Comments GLUCOSE (test code = 2217) 211 MG/DL BUN (test code = 2208) 15 MG/DL CREATININE (test code = 2214) 0.96 MG/DL eGFR AMER. (test code 111 ML/MIN/1.73 = 40936) eGFR NON- AMER. (test 96 ML/MIN/1.73 code = 38108) CALC BUN/CREAT (test code = 16 RATIO [...] code = 2219) 20 U/L COMPREHENSIVE METABOLIC [id number] 00:00:00 Test Item Value Reference Range Interpretation Comments GLUCOSE (test code = 2217) 211 MG/DL BUN (test code = 2208) 15 MG/DL CREATININE (test code = 2214) 0.96 MG/DL eGFR AMER. (test code 111 ML/MIN/1.73 = 59733) eGFR NON- AMER. (test 96 ML/MIN/1.73 code = 15798) CALC BUN/CREAT (test code = 16 RATIO [...] (test code = 2219) 20 U/L CK, [id number] 00:00:00 Test Item Value Reference Range Interpretation Comments CK, TOTAL (test code = 2013) 48 U/L CK, [id number] 00:00:00 Test Item Value Reference Range Interpretation Comments CK, TOTAL (test code = 2013) 48 U/L MICROALBUMIN/CREATININE, RANDOM AND [id number] 00:00:00 Test Item Value Reference Range Interpretation Comments CREATININE, URINE, CONC. (test 21.2 MG/DL code = 2) ALBUMIN, URINE, RANDOM (test code 4.6 MG/DL = 69815) CALC ALBUMIN/CREAT, RND (test code 217 MG/G = 91354) MICROALBUMIN/CREATININE, RANDOM AND [id number] 00:00:00 Test Item Value Reference Range Interpretation Comments CREATININE, URINE, CONC. (test 21.2 MG/DL code = 2072) ALBUMIN, URINE, RANDOM (test code 4.6 MG/DL = 93735) CALC ALBUMIN/CREAT, RND (test code 217 MG/G = 84010) CD4/CD8 LYMPHOCYTE [id number] 00:00:00 Test Item Value Reference Range Interpretation Comments ABSOLUTE LYMPHOCYTES (test code = 1127 PERUL 82546) PERCENT CD4 (test code = 69010) 27.7 % ABSOLUTE CD4 (test code = 15841) 312 PERUL PERCENT CD8 (test code = 33540) 54.2 % ABSOLUTE CD8 (test code = 28121) 611 PERUL CD4/CD8 RATIO (test code = 32484) 0.51 CD4/CD8 LYMPHOCYTE [id number] 00:00:00 Test Item Value Reference Range Interpretation Comments ABSOLUTE LYMPHOCYTES (test code = 1127 PERUL 00470) PERCENT CD4 (test code = 74783) 27.7 % ABSOLUTE CD4 (test code = 04474) 312 PERUL PERCENT CD8 (test code = 92869) 54.2 % ABSOLUTE CD8 (test code = 27646) 611 PERUL CD4/CD8 RATIO (test code = 74988) 0.51 LIPID [id number] 00:00:00 Test Item Value Reference Range Interpretation Comments CHOLESTEROL (test code = 2210) 99 MG/DL TRIGLYCERIDES (test code = 2232) 344 MG/DL HDL CHOLESTEROL (test code = 2220) 20 MG/DL CALC LDL CHOL (test code = 2237) 43 MG/DL RISK RATIO LDL/HDL (test code = 2.15 RATIO 2238) LIPID [id number] 00:00:00 Test Item Value Reference Range Interpretation Comments CHOLESTEROL (test code = 2210) 99 MG/DL TRIGLYCERIDES (test code = 2232) 344 MG/DL HDL CHOLESTEROL (test code = 2220) 20 MG/DL CALC LDL CHOL (test code = 2237) 43 MG/DL RISK RATIO LDL/HDL (test code = 2.15 RATIO 2238) HEMOGLOBIN [id number] 00:00:00 Test Item Value Reference Range Interpretation Comments HEMOGLOBIN A1c (test code = 84395) 9.6 % HEMOGLOBIN [id number] 00:00:00 Test Item Value Reference Range Interpretation Comments HEMOGLOBIN A1c (test code = 26462) 9.6 % HEMOGLOBIN [id number] 00:00:00 Test Item Value Reference Range Interpretation Comments HEMOGLOBIN A1c (test code = 75626) 9.6 % CBC W/AUTO [id number] 00:00:00 Test Item Value Reference Range Interpretation [...] code = 1015) 152 K/UL CBC W/AUTO [id number] 00:00:00 Test Item Value Reference Range Interpretation [...] code = 1015) 152 K/UL CBC W/AUTO [id number] 00:00:00 Test Item Value Reference Range Interpretation [...] code = 1015) 152 K/UL COMPREHENSIVE METABOLIC [id number] 00:00:00 Test Item Value Reference Range Interpretation Comments GLUCOSE (test code = 2217) 211 MG/DL BUN (test code = 2208) 15 MG/DL CREATININE (test code = 2214) 0.96 MG/DL eGFR AMER. (test code 111 ML/MIN/1.73 = 48069) eGFR NON- AMER. (test 96 ML/MIN/1.73 code = 00018) CALC BUN/CREAT (test code = 16 RATIO [...] code = 2219) 20 U/L COMPREHENSIVE METABOLIC [id number] 00:00:00 Test Item Value Reference Range Interpretation Comments GLUCOSE (test code = 2217) 211 MG/DL BUN (test code = 2208) 15 MG/DL CREATININE (test code = 2214) 0.96 MG/DL eGFR AMER. (test code 111 ML/MIN/1.73 = 79445) eGFR NON- AMER. (test 96 ML/MIN/1.73 code = 98268) CALC BUN/CREAT (test code = 16 RATIO [...] (test code = 2219) 20 U/L CK, [id number] 00:00:00 Test Item Value Reference Range Interpretation Comments CK, TOTAL (test code = 2013) 48 U/L HEMOGLOBIN [id number] 00:00:00 Test Item Value Reference Range Interpretation Comments HEMOGLOBIN A1c (test code = 00760) 11.6 % HEMOGLOBIN [id number] 00:00:00 Test Item Value Reference Range Interpretation Comments HEMOGLOBIN A1c (test code = 74881) 11.6 % HEMOGLOBIN [id number] 00:00:00 Test Item Value Reference Range Interpretation Comments HEMOGLOBIN A1c (test code = 30108) 11.6 % HEMOGLOBIN [id number] 00:00:00 Test Item Value Reference Range Interpretation Comments HEMOGLOBIN A1c (test code = 22553) 11.6 % HEMOGLOBIN [id number] 00:00:00 Test Item Value Reference Range Interpretation Comments HEMOGLOBIN A1c (test code = 91346) 11.6 % HEMOGLOBIN [id number] 00:00:00 Test Item Value Reference Range Interpretation Comments HEMOGLOBIN A1c (test code = 66691) 11.6 % HEMOGLOBIN [id number] 00:00:00 Test Item Value Reference Range Interpretation Comments HEMOGLOBIN A1c (test code = 53234) 11.6 % HEMOGLOBIN [id number] 00:00:00 Test Item Value Reference Range Interpretation Comments HEMOGLOBIN A1c (test code = 85711) 11.6 % HEMOGLOBIN [id number] 00:00:00 Test Item Value Reference Range Interpretation Comments HEMOGLOBIN A1c (test code = 01894) 11.6 % COMPREHENSIVE METABOLIC [id number] 00:00:00 Test Item Value Reference Range Interpretation Comments GLUCOSE (test code = 2217) 470 MG/DL BUN (test code = 2208) 8 MG/DL CREATININE (test code = 2214) 1.19 MG/DL eGFR AMER. (test code 86 ML/MIN/1.73 = 49129) eGFR NON- AMER. (test 74 ML/MIN/1.73 code = 15577) CALC BUN/CREAT (test code = 7 RATIO 2235) SODIUM (test code = 2231) 138 MEQ/L POTASSIUM (test code = 2228) 3.6 MEQ/L CHLORIDE (test code = 2215) 95 MEQ/L CARBON DIOXIDE (test code = 26 MEQ/L 220) CALCIUM (test code = 2209) 9.2 MG/DL PROTEIN, TOTAL (test code = 7.4 G/DL 2228) ALBUMIN (test code = 2201) 4.4 G/DL CALC GLOBULIN (test code = 3.0 G/DL 0) CALC A/G RATIO (test code = 1.5 RATIO 4) BILIRUBIN, TOTAL (test code = 0.5 MG/DL 2206) ALKALINE PHOSPHATASE (test 72 U/L code = 2204) AST (test code = 2218) 19 U/L ALT (test code = 2219) 17 U/L COMPREHENSIVE METABOLIC [id number] 00:00:00 Test Item Value Reference Range Interpretation Comments GLUCOSE (test code = 2217) 470 MG/DL BUN (test code = 2208) 8 MG/DL CREATININE (test code = 2214) 1.19 MG/DL eGFR AMER. (test code 86 ML/MIN/1.73 = 70302) eGFR NON- AMER. (test 74 ML/MIN/1.73 code = 47239) CALC BUN/CREAT (test code = 7 RATIO [...] = 0.5 MG/DL 2207) ALKALINE PHOSPHATASE (test 72 U/L code = 2204) AST (test code = 2218) 19 U/L ALT (test code = 2219) 17 U/L COMPREHENSIVE METABOLIC [id number] 00:00:00 Test Item Value Reference Range Interpretation Comments GLUCOSE (test code = 2217) 470 MG/DL BUN (test code = 2208) 8 MG/DL CREATININE (test code = 2214) 1.19 MG/DL eGFR AMER. (test code 86 ML/MIN/1.73 = 29265) eGFR NON- AMER. (test 74 ML/MIN/1.73 code = 58516) CALC BUN/CREAT (test code = 7 RATIO [...] BILIRUBIN, TOTAL (test code = 0.5 MG/DL 7) ALKALINE PHOSPHATASE (test 72 U/L code = 2204) AST (test code = 2218) 19 U/L ALT (test code = 2219) 17 U/L COMPREHENSIVE METABOLIC [id number] 00:00:00 Test Item Value Reference Range Interpretation Comments GLUCOSE (test code = 2217) 470 MG/DL BUN (test code = 2208) 8 MG/DL CREATININE (test code = 2214) 1.19 MG/DL eGFR AMER. (test code 86 ML/MIN/1.73 = 66230) eGFR NON- AMER. (test 74 ML/MIN/1.73 code = 92780) CALC BUN/CREAT (test code = 7 RATIO [...] code = 2219) 17 U/L COMPREHENSIVE METABOLIC [id number] 00:00:00 Test Item Value Reference Range Interpretation Comments GLUCOSE (test code = 2217) 470 MG/DL BUN (test code = 2208) 8 MG/DL CREATININE (test code = 2214) 1.19 MG/DL eGFR AMER. (test code 86 ML/MIN/1.73 = 03892) eGFR NON- AMER. (test 74 ML/MIN/1.73 code = 99343) CALC BUN/CREAT (test code = 7 RATIO [...] code = 2219) 17 U/L COMPREHENSIVE METABOLIC [id number] 00:00:00 Test Item Value Reference Range Interpretation Comments GLUCOSE (test code = 2217) 470 MG/DL BUN (test code = 2208) 8 MG/DL CREATININE (test code = 2214) 1.19 MG/DL eGFR AMER. (test code 86 ML/MIN/1.73 = 01101) eGFR NON- AMER. (test 74 ML/MIN/1.73 code = 46917) CALC BUN/CREAT (test code = 7 RATIO [...] ALT (test code = 2219) 17 U/L MICROALBUMIN, [id number] 00:00:00 Test Item Value Reference Range Interpretation Comments ALBUMIN, URINE, RANDOM (test code = 0.6 MG/DL 54266) HEMOGLOBIN [id number] 00:00:00 Test Item Value Reference Range Interpretation Comments HEMOGLOBIN A1c (test code = 91248) 9.6 % HEMOGLOBIN [id number] 00:00:00 Test Item Value Reference Range Interpretation Comments HEMOGLOBIN A1c (test code = 78358) 9.6 % HEMOGLOBIN [id number] 00:00:00 Test Item Value Reference Range Interpretation Comments HEMOGLOBIN A1c (test code = 27781) 9.6 % CBC W/AUTO [id number] 00:00:00 Test Item Value Reference Range Interpretation [...] code = 1015) 145 K/UL CBC W/AUTO [id number] 00:00:00 Test Item Value Reference Range Interpretation [...] code = 1015) 145 K/UL CBC W/AUTO [id number] 00:00:00 Test Item Value Reference Range Interpretation [...] code = 1015) 145 K/UL COMPREHENSIVE METABOLIC [id number] 00:00:00 Test Item Value Reference Range Interpretation Comments GLUCOSE (test code = 2217) 287 MG/DL BUN (test code = 2208) 10 MG/DL CREATININE (test code = 2214) 0.91 MG/DL eGFR AMER. (test code 118 ML/MIN/1.73 = 14363) eGFR NON- AMER. (test 102 ML/MIN/1.73 code = 98341) CALC BUN/CREAT (test code = 11 RATIO [...] 0) CALC A/G RATIO (test code = 1.9 RATIO 4) BILIRUBIN, TOTAL (test code = 0.2 MG/DL 2206) ALKALINE PHOSPHATASE (test 68 U/L code = 2204) AST (test code = 2218) 14 U/L ALT (test code = 2219) 16 U/L COMPREHENSIVE METABOLIC [id number] 00:00:00 Test Item Value Reference Range Interpretation Comments GLUCOSE (test code = 2217) 287 MG/DL BUN (test code = 2208) 10 MG/DL CREATININE (test code = 2214) 0.91 MG/DL eGFR AMER. (test code 118 ML/MIN/1.73 = 06613) eGFR NON- AMER. (test 102 ML/MIN/1.73 code = 75605) CALC BUN/CREAT (test code = 11 RATIO [...] 2239) CALC A/G RATIO (test code = 1.9 RATIO 2234) BILIRUBIN, TOTAL (test code = 0.2 MG/DL 2206) ALKALINE PHOSPHATASE (test 68 U/L code = 2204) AST (test code = 2218) 14 U/L ALT (test code = 2219) 16 U/L LIPID [id number] 00:00:00 Test Item Value Reference Range Interpretation Comments CHOLESTEROL (test code = 2210) 117 MG/DL TRIGLYCERIDES (test code = 2232) 386 MG/DL HDL CHOLESTEROL (test code = 2220) 25 MG/DL CALC LDL CHOL (test code = 2237) 51 MG/DL RISK RATIO LDL/HDL (test code = 2.04 RATIO 2238) LIPID [id number] 00:00:00 Test Item Value Reference Range Interpretation Comments CHOLESTEROL (test code = 2210) 117 MG/DL TRIGLYCERIDES (test code = 2232) 386 MG/DL HDL CHOLESTEROL (test code = 2220) 25 MG/DL CALC LDL CHOL (test code = 2237) 51 MG/DL RISK RATIO LDL/HDL (test code = 2.04 RATIO 2238) MICROALBUMIN, [id number] 00:00:00 Test Item Value Reference Range Interpretation Comments ALBUMIN, URINE, RANDOM (test code = 0.6 MG/DL 09245) MICROALBUMIN, [id number] 00:00:00 Test Item Value Reference Range Interpretation Comments ALBUMIN, URINE, RANDOM (test code = 0.6 MG/DL 21801) HEMOGLOBIN [id number] 00:00:00 Test Item Value Reference Range Interpretation Comments HEMOGLOBIN A1c (test code = 53450) 9.6 % HEMOGLOBIN [id number] 00:00:00 Test Item Value Reference Range Interpretation Comments HEMOGLOBIN A1c (test code = 89397) 9.6 % HEMOGLOBIN [id number] 00:00:00 Test Item Value Reference Range Interpretation Comments HEMOGLOBIN A1c (test code = 62773) 9.6 % CBC W/AUTO [id number] 00:00:00 Test Item Value Reference Range Interpretation [...] code = 1015) 145 K/UL CBC W/AUTO [id number] 00:00:00 Test Item Value Reference Range Interpretation [...] code = 1015) 145 K/UL CBC W/AUTO [id number] 00:00:00 Test Item Value Reference Range Interpretation [...] code = 1015) 145 K/UL COMPREHENSIVE METABOLIC [id number] 00:00:00 Test Item Value Reference Range Interpretation Comments GLUCOSE (test code = 2217) 287 MG/DL BUN (test code = 2208) 10 MG/DL CREATININE (test code = 2214) 0.91 MG/DL eGFR AMER. (test code 118 ML/MIN/1.73 = 92076) eGFR NON- AMER. (test 102 ML/MIN/1.73 code = 20069) CALC BUN/CREAT (test code = 11 RATIO [...] code = 2219) 16 U/L COMPREHENSIVE METABOLIC [id number] 00:00:00 Test Item Value Reference Range Interpretation Comments GLUCOSE (test code = 2217) 287 MG/DL BUN (test code = 2208) 10 MG/DL CREATININE (test code = 2214) 0.91 MG/DL eGFR AMER. (test code 118 ML/MIN/1.73 = 33377) eGFR NON- AMER. (test 102 ML/MIN/1.73 code = 44716) CALC BUN/CREAT (test code = 11 RATIO [...] 2239) CALC A/G RATIO (test code = 1.9 RATIO 4) BILIRUBIN, TOTAL (test code = 0.2 MG/DL 2206) ALKALINE PHOSPHATASE (test 68 U/L code = 2204) AST (test code = 2218) 14 U/L ALT (test code = 2219) 16 U/L LIPID [id number] 00:00:00 Test Item Value Reference Range Interpretation Comments CHOLESTEROL (test code = 2210) 117 MG/DL TRIGLYCERIDES (test code = 2232) 386 MG/DL HDL CHOLESTEROL (test code = 2220) 25 MG/DL CALC LDL CHOL (test code = 2237) 51 MG/DL RISK RATIO LDL/HDL (test code = 2.04 RATIO 2238) LIPID [id number] 00:00:00 Test Item Value Reference Range Interpretation Comments CHOLESTEROL (test code = 2210) 117 MG/DL TRIGLYCERIDES (test code = 2232) 386 MG/DL HDL CHOLESTEROL (test code = 2220) 25 MG/DL CALC LDL CHOL (test code = 2237) 51 MG/DL RISK RATIO LDL/HDL (test code = 2.04 RATIO 2238) MICROALBUMIN, [id number] 00:00:00 Test Item Value Reference Range Interpretation Comments ALBUMIN, URINE, RANDOM (test code = 0.6 MG/DL 73192) MICROALBUMIN, [id number] 00:00:00 Test Item Value Reference Range Interpretation Comments ALBUMIN, URINE, RANDOM (test code = 0.6 MG/DL 19422) HEMOGLOBIN [id number] 00:00:00 Test Item Value Reference Range Interpretation Comments HEMOGLOBIN A1c (test code = 43388) 9.6 % HEMOGLOBIN [id number] 00:00:00 Test Item Value Reference Range Interpretation Comments HEMOGLOBIN A1c (test code = 49666) 9.6 % HEMOGLOBIN [id number] 00:00:00 Test Item Value Reference Range Interpretation Comments HEMOGLOBIN A1c (test code = 64891) 9.6 % CBC W/AUTO [id number] 00:00:00 Test Item Value Reference Range Interpretation [...] code = 1015) 145 K/UL CBC W/AUTO [id number] 00:00:00 Test Item Value Reference Range Interpretation [...] code = 1015) 145 K/UL CBC W/AUTO [id number] 00:00:00 Test Item Value Reference Range Interpretation [...] code = 1015) 145 K/UL COMPREHENSIVE METABOLIC [id number] 00:00:00 Test Item Value Reference Range Interpretation Comments GLUCOSE (test code = 2217) 287 MG/DL BUN (test code = 2208) 10 MG/DL CREATININE (test code = 2214) 0.91 MG/DL eGFR AMER. (test code 118 ML/MIN/1.73 = 75920) eGFR NON- AMER. (test 102 ML/MIN/1.73 code = 97827) CALC BUN/CREAT (test code = 11 RATIO 2235) SODIUM (test code = 2231) 141 MEQ/L POTASSIUM (test code = 2228) 3.9 MEQ/L CHLORIDE (test code = 2215) 102 MEQ/L CARBON DIOXIDE (test code = 26 MEQ/L 220) CALCIUM (test code = 2209) 9.1 MG/DL PROTEIN, TOTAL (test code = 7.2 G/DL 222) ALBUMIN (test code = 2201) 4.7 G/DL CALC GLOBULIN (test code = 2.5 G/DL 2240) CALC A/G RATIO (test code = 1.9 RATIO 2234) BILIRUBIN, TOTAL (test code = 0.2 MG/DL 220) ALKALINE PHOSPHATASE (test 68 U/L code = 2204) AST (test code = 2218) 14 U/L ALT (test code = 2219) 16 U/L COMPREHENSIVE METABOLIC [id number] 00:00:00 Test Item Value Reference Range Interpretation Comments GLUCOSE (test code = 2217) 287 MG/DL BUN (test code = 2208) 10 MG/DL CREATININE (test code = 2214) 0.91 MG/DL eGFR AMER. (test code 118 ML/MIN/1.73 = 57098) eGFR NON- AMER. (test 102 ML/MIN/1.73 code = 79420) CALC BUN/CREAT (test code = 11 RATIO [...] 2239) CALC A/G RATIO (test code = 1.9 RATIO 223) BILIRUBIN, TOTAL (test code = 0.2 MG/DL 2206) ALKALINE PHOSPHATASE (test 68 U/L code = 2204) AST (test code = 2218) 14 U/L ALT (test code = 2219) 16 U/L LIPID [id number] 00:00:00 Test Item Value Reference Range Interpretation Comments CHOLESTEROL (test code = 2210) 117 MG/DL TRIGLYCERIDES (test code = 2232) 386 MG/DL HDL CHOLESTEROL (test code = 2220) 25 MG/DL CALC LDL CHOL (test code = 2237) 51 MG/DL RISK RATIO LDL/HDL (test code = 2.04 RATIO 2238) LIPID [id number] 00:00:00 Test Item Value Reference Range Interpretation Comments CHOLESTEROL (test code = 2210) 117 MG/DL TRIGLYCERIDES (test code = 2232) 386 MG/DL HDL CHOLESTEROL (test code = 2220) 25 MG/DL CALC LDL CHOL (test code = 2237) 51 MG/DL RISK RATIO LDL/HDL (test code = 2.04 RATIO 2238) MICROALBUMIN, [id number] 00:00:00 Test Item Value Reference Range Interpretation Comments ALBUMIN, URINE, RANDOM (test code = 0.6 MG/DL 75609) CBC W/AUTO [id number] 00:00:00 Test Item Value Reference Range Interpretation [...] code = 1015) 223 K/UL CBC W/AUTO [id number] 00:00:00 Test Item Value Reference Range Interpretation [...] code = 1015) 223 K/UL CBC W/AUTO [id number] 00:00:00 Test Item Value Reference Range Interpretation [...] (test code = 1015) 223 K/UL LIPID [id number] 00:00:00 Test Item Value Reference Range Interpretation Comments CHOLESTEROL (test code = 2210) 173 MG/DL TRIGLYCERIDES (test code = 2232) 782 MG/DL HDL CHOLESTEROL (test code = 22 MG/DL 2220) CALC LDL CHOL (test code = 2237) NOTE MG/DL RISK RATIO LDL/HDL (test code = (NOTE) RATIO 2238) LIPID [id number] 00:00:00 Test Item Value Reference Range Interpretation Comments CHOLESTEROL (test code = 2210) 173 MG/DL TRIGLYCERIDES (test code = 2232) 782 MG/DL HDL CHOLESTEROL (test code = 22 MG/DL 2220) CALC LDL CHOL (test code = 2237) NOTE MG/DL RISK RATIO LDL/HDL (test code = (NOTE) RATIO 2238) HEMOGLOBIN [id number] 00:00:00 Test Item Value Reference Range Interpretation Comments HEMOGLOBIN A1c (test code = 97041) 10.7 % HEMOGLOBIN [id number] 00:00:00 Test Item Value Reference Range Interpretation Comments HEMOGLOBIN A1c (test code = 51215) 10.7 % HEMOGLOBIN [id number] 00:00:00 Test Item Value Reference Range Interpretation Comments HEMOGLOBIN A1c (test code = 31044) 10.7 % COMPREHENSIVE METABOLIC [id number] 00:00:00 Test Item Value Reference Range Interpretation Comments GLUCOSE (test code = 2217) 419 MG/DL BUN (test code = 2208) 13 MG/DL CREATININE (test code = 2214) 1.13 MG/DL eGFR AMER. (test code 91 ML/MIN/1.73 = 00495) eGFR NON- AMER. (test 79 ML/MIN/1.73 code = 26332) CALC BUN/CREAT (test code = 12 RATIO 2235) SODIUM (test code = 2231) 134 MEQ/L POTASSIUM (test code = 2228) 4.2 MEQ/L CHLORIDE (test code = 2215) 94 MEQ/L CARBON DIOXIDE (test code = 21 MEQ/L 2205) CALCIUM (test code = 2209) 9.5 MG/DL PROTEIN, TOTAL (test code = 8.1 G/DL 2229) ALBUMIN (test code = 2201) 5.0 G/DL CALC GLOBULIN (test code = 3.1 G/DL 2240) CALC A/G RATIO (test code = 1.6 RATIO 2234) BILIRUBIN, TOTAL (test code = 0.3 MG/DL 220) ALKALINE PHOSPHATASE (test 85 U/L code = 2204) AST (test code = 2218) 10 U/L ALT (test code = 2219) 11 U/L COMPREHENSIVE METABOLIC [id number] 00:00:00 Test Item Value Reference Range Interpretation Comments GLUCOSE (test code = 2217) 419 MG/DL BUN (test code = 2208) 13 MG/DL CREATININE (test code = 2214) 1.13 MG/DL eGFR AMER. (test code 91 ML/MIN/1.73 = 43686) eGFR NON- AMER. (test 79 ML/MIN/1.73 code = 37038) CALC BUN/CREAT (test code = 12 RATIO 2235) SODIUM (test code = 2231) 134 MEQ/L POTASSIUM (test code = 2228) 4.2 MEQ/L CHLORIDE (test code = 2215) 94 MEQ/L CARBON DIOXIDE (test code = 21 MEQ/L 2206) CALCIUM (test code = 2209) 9.5 MG/DL [...] code = 2219) 11 U/L CBC W/AUTO [id number] 00:00:00 Test Item Value Reference Range Interpretation [...] code = 1015) 223 K/UL CBC W/AUTO [id number] 00:00:00 Test Item Value Reference Range Interpretation [...] code = 1015) 223 K/UL CBC W/AUTO [id number] 00:00:00 Test Item Value Reference Range Interpretation [...] (test code = 1015) 223 K/UL LIPID [id number] 00:00:00 Test Item Value Reference Range Interpretation Comments CHOLESTEROL (test code = 2210) 173 MG/DL TRIGLYCERIDES (test code = 2232) 782 MG/DL HDL CHOLESTEROL (test code = 22 MG/DL 2220) CALC LDL CHOL (test code = 2237) NOTE MG/DL RISK RATIO LDL/HDL (test code = (NOTE) RATIO 2238) LIPID [id number] 00:00:00 Test Item Value Reference Range Interpretation Comments CHOLESTEROL (test code = 2210) 173 MG/DL TRIGLYCERIDES (test code = 2232) 782 MG/DL HDL CHOLESTEROL (test code = 22 MG/DL 2220) CALC LDL CHOL (test code = 2237) NOTE MG/DL RISK RATIO LDL/HDL (test code = (NOTE) RATIO 2238) HEMOGLOBIN [id number] 00:00:00 Test Item Value Reference Range Interpretation Comments HEMOGLOBIN A1c (test code = 63001) 10.7 % HEMOGLOBIN [id number] 00:00:00 Test Item Value Reference Range Interpretation Comments HEMOGLOBIN A1c (test code = 58451) 10.7 % HEMOGLOBIN [id number] 00:00:00 Test Item Value Reference Range Interpretation Comments HEMOGLOBIN A1c (test code = 63429) 10.7 % COMPREHENSIVE METABOLIC [id number] 00:00:00 Test Item Value Reference Range Interpretation Comments GLUCOSE (test code = 2217) 419 MG/DL BUN (test code = 2208) 13 MG/DL CREATININE (test code = 2214) 1.13 MG/DL eGFR AMER. (test code 91 ML/MIN/1.73 = 93072) eGFR NON- AMER. (test 79 ML/MIN/1.73 code = 46187) CALC BUN/CREAT (test code = 12 RATIO [...] code = 2219) 11 U/L COMPREHENSIVE METABOLIC [id number] 00:00:00 Test Item Value Reference Range Interpretation Comments GLUCOSE (test code = 2217) 419 MG/DL BUN (test code = 2208) 13 MG/DL CREATININE (test code = 2214) 1.13 MG/DL eGFR AMER. (test code 91 ML/MIN/1.73 = 50870) eGFR NON- AMER. (test 79 ML/MIN/1.73 code = 10039) CALC BUN/CREAT (test code = 12 RATIO [...] code = 2219) 11 U/L CBC W/AUTO [id number] 00:00:00 Test Item Value Reference Range Interpretation [...] code = 1015) 223 K/UL CBC W/AUTO [id number] 00:00:00 Test Item Value Reference Range Interpretation [...] code = 1015) 223 K/UL CBC W/AUTO [id number] 00:00:00 Test Item Value Reference Range Interpretation [...] (test code = 1015) 223 K/UL LIPID [id number] 00:00:00 Test Item Value Reference Range Interpretation Comments CHOLESTEROL (test code = 2210) 173 MG/DL TRIGLYCERIDES (test code = 2232) 782 MG/DL HDL CHOLESTEROL (test code = 22 MG/DL 0) CALC LDL CHOL (test code = 2237) NOTE MG/DL RISK RATIO LDL/HDL (test code = (NOTE) RATIO 2238) LIPID [id number] 00:00:00 Test Item Value Reference Range Interpretation Comments CHOLESTEROL (test code = 2210) 173 MG/DL TRIGLYCERIDES (test code = 2232) 782 MG/DL HDL CHOLESTEROL (test code = 22 MG/DL 2220) CALC LDL CHOL (test code = 2237) NOTE MG/DL RISK RATIO LDL/HDL (test code = (NOTE) RATIO 2238) HEMOGLOBIN [id number] 00:00:00 Test Item Value Reference Range Interpretation Comments HEMOGLOBIN A1c (test code = 02444) 10.7 % HEMOGLOBIN [id number] 00:00:00 Test Item Value Reference Range Interpretation Comments HEMOGLOBIN A1c (test code = 85228) 10.7 % HEMOGLOBIN [id number] 00:00:00 Test Item Value Reference Range Interpretation Comments HEMOGLOBIN A1c (test code = 17803) 10.7 % COMPREHENSIVE METABOLIC [id number] 00:00:00 Test Item Value Reference Range Interpretation Comments GLUCOSE (test code = 2217) 419 MG/DL BUN (test code = 2208) 13 MG/DL CREATININE (test code = 2214) 1.13 MG/DL eGFR AMER. (test code 91 ML/MIN/1.73 = 23328) eGFR NON- AMER. (test 79 ML/MIN/1.73 code = 75948) CALC BUN/CREAT (test code = 12 RATIO [...] CALC GLOBULIN (test code = 3.1 G/DL 0) CALC A/G RATIO (test code = 1.6 RATIO 2234) BILIRUBIN, TOTAL (test code = 0.3 MG/DL 2206) ALKALINE PHOSPHATASE (test 85 U/L code = 2204) AST (test code = 2218) 10 U/L ALT (test code = 2219) 11 U/L COMPREHENSIVE METABOLIC [id number] 00:00:00 Test Item Value Reference Range Interpretation Comments GLUCOSE (test code = 2217) 419 MG/DL BUN (test code = 2208) 13 MG/DL CREATININE (test code = 2214) 1.13 MG/DL eGFR AMER. (test code 91 ML/MIN/1.73 = 91232) eGFR NON- AMER. (test 79 ML/MIN/1.73 code = 39759) CALC BUN/CREAT (test code = 12 RATIO 2235) SODIUM (test code = 2231) 134 MEQ/L POTASSIUM (test code = 2228) 4.2 MEQ/L CHLORIDE (test code = 2215) 94 MEQ/L CARBON DIOXIDE (test code = 21 MEQ/L 2206) CALCIUM (test code = 2209) 9.5 MG/DL [...] code = 2219) 11 U/L CBC W/AUTO [id number] 00:00:00 Test Item Value Reference Range Interpretation [...] code = 1015) 145 K/UL CBC W/AUTO [id number] 00:00:00 Test Item Value Reference Range Interpretation [...] code = 1015) 145 K/UL CBC W/AUTO [id number] 00:00:00 Test Item Value Reference Range Interpretation [...] (test code = 1015) 145 K/UL LIPID [id number] 00:00:00 Test Item Value Reference Range Interpretation Comments CHOLESTEROL (test code = 2210) 145 MG/DL TRIGLYCERIDES (test code = 2232) 506 MG/DL HDL CHOLESTEROL (test code = 23 MG/DL 2220) CALC LDL CHOL (test code = 2237) NOTE MG/DL RISK RATIO LDL/HDL (test code = (NOTE) RATIO 2238) LIPID [id number] 00:00:00 Test Item Value Reference Range Interpretation Comments CHOLESTEROL (test code = 2210) 145 MG/DL TRIGLYCERIDES (test code = 2232) 506 MG/DL HDL CHOLESTEROL (test code = 23 MG/DL 2219) CALC LDL CHOL (test code = 2237) NOTE MG/DL RISK RATIO LDL/HDL (test code = (NOTE) RATIO 2238) HEMOGLOBIN [id number] 00:00:00 Test Item Value Reference Range Interpretation Comments HEMOGLOBIN A1c (test code = 35480) 10.6 % HEMOGLOBIN [id number] 00:00:00 Test Item Value Reference Range Interpretation Comments HEMOGLOBIN A1c (test code = 58296) 10.6 % HEMOGLOBIN [id number] 00:00:00 Test Item Value Reference Range Interpretation Comments HEMOGLOBIN A1c (test code = 83939) 10.6 % COMPREHENSIVE METABOLIC [id number] 00:00:00 Test Item Value Reference Range Interpretation Comments GLUCOSE (test code = 2217) 352 MG/DL BUN (test code = 2208) 9 MG/DL CREATININE (test code = 2214) 0.98 MG/DL eGFR AMER. (test code 109 ML/MIN/1.73 = 58700) eGFR NON- AMER. (test 94 ML/MIN/1.73 code = 32078) CALC BUN/CREAT (test code = 9 RATIO [...] CALC GLOBULIN (test code = 3.0 G/DL 0) CALC A/G RATIO (test code = 1.6 RATIO 2233) BILIRUBIN, TOTAL (test code = 0.3 MG/DL 2206) ALKALINE PHOSPHATASE (test 79 U/L code = 2204) AST (test code = 2218) 14 U/L ALT (test code = 2219) 11 U/L COMPREHENSIVE METABOLIC [id number] 00:00:00 Test Item Value Reference Range Interpretation Comments GLUCOSE (test code = 2217) 352 MG/DL BUN (test code = 2208) 9 MG/DL CREATININE (test code = 2214) 0.98 MG/DL eGFR AMER. (test code 109 ML/MIN/1.73 = 97486) eGFR NON- AMER. (test 94 ML/MIN/1.73 code = 77644) CALC BUN/CREAT (test code = 9 RATIO [...] code = 2219) 11 U/L CBC W/AUTO [id number] 00:00:00 Test Item Value Reference Range Interpretation [...] code = 1015) 145 K/UL CBC W/AUTO [id number] 00:00:00 Test Item Value Reference Range Interpretation [...] code = 1015) 145 K/UL CBC W/AUTO [id number] 00:00:00 Test Item Value Reference Range Interpretation [...] (test code = 1015) 145 K/UL LIPID [id number] 00:00:00 Test Item Value Reference Range Interpretation Comments CHOLESTEROL (test code = 2210) 145 MG/DL TRIGLYCERIDES (test code = 2232) 506 MG/DL HDL CHOLESTEROL (test code = 23 MG/DL 2220) CALC LDL CHOL (test code = 2237) NOTE MG/DL RISK RATIO LDL/HDL (test code = (NOTE) RATIO 2238) LIPID [id number] 00:00:00 Test Item Value Reference Range Interpretation Comments CHOLESTEROL (test code = 2210) 145 MG/DL TRIGLYCERIDES (test code = 2232) 506 MG/DL HDL CHOLESTEROL (test code = 23 MG/DL 0) CALC LDL CHOL (test code = 2237) NOTE MG/DL RISK RATIO LDL/HDL (test code = (NOTE) RATIO 2238) HEMOGLOBIN [id number] 00:00:00 Test Item Value Reference Range Interpretation Comments HEMOGLOBIN A1c (test code = 31675) 10.6 % HEMOGLOBIN [id number] 00:00:00 Test Item Value Reference Range Interpretation Comments HEMOGLOBIN A1c (test code = 25657) 10.6 % HEMOGLOBIN [id number] 00:00:00 Test Item Value Reference Range Interpretation Comments HEMOGLOBIN A1c (test code = 69030) 10.6 % COMPREHENSIVE METABOLIC [id number] 00:00:00 Test Item Value Reference Range Interpretation Comments GLUCOSE (test code = 2217) 352 MG/DL BUN (test code = 2208) 9 MG/DL CREATININE (test code = 2214) 0.98 MG/DL eGFR AMER. (test code 109 ML/MIN/1.73 = 75556) eGFR NON- AMER. (test 94 ML/MIN/1.73 code = 81401) CALC BUN/CREAT (test code = 9 RATIO [...] CALC GLOBULIN (test code = 3.0 G/DL 0) CALC A/G RATIO (test code = 1.6 RATIO 2234) BILIRUBIN, TOTAL (test code = 0.3 MG/DL 2206) ALKALINE PHOSPHATASE (test 79 U/L code = 2204) AST (test code = 2218) 14 U/L ALT (test code = 2219) 11 U/L COMPREHENSIVE METABOLIC [id number] 00:00:00 Test Item Value Reference Range Interpretation Comments GLUCOSE (test code = 2217) 352 MG/DL BUN (test code = 2208) 9 MG/DL CREATININE (test code = 2214) 0.98 MG/DL eGFR AMER. (test code 109 ML/MIN/1.73 = 36983) eGFR NON- AMER. (test 94 ML/MIN/1.73 code = 01070) CALC BUN/CREAT (test code = 9 RATIO 5) SODIUM (test code = 2231) 137 MEQ/L [...] code = 2219) 11 U/L CBC W/AUTO [id number] 00:00:00 Test Item Value Reference Range Interpretation [...] code = 1015) 145 K/UL CBC W/AUTO [id number] 00:00:00 Test Item Value Reference Range Interpretation [...] code = 1015) 145 K/UL CBC W/AUTO [id number] 00:00:00 Test Item Value Reference Range Interpretation [...] (test code = 1015) 145 K/UL LIPID [id number] 00:00:00 Test Item Value Reference Range Interpretation Comments CHOLESTEROL (test code = 2210) 145 MG/DL TRIGLYCERIDES (test code = 2232) 506 MG/DL HDL CHOLESTEROL (test code = 23 MG/DL 2220) CALC LDL CHOL (test code = 2237) NOTE MG/DL RISK RATIO LDL/HDL (test code = (NOTE) RATIO 2238) LIPID [id number] 00:00:00 Test Item Value Reference Range Interpretation Comments CHOLESTEROL (test code = 2210) 145 MG/DL TRIGLYCERIDES (test code = 2232) 506 MG/DL HDL CHOLESTEROL (test code = 23 MG/DL 2220) CALC LDL CHOL (test code = 2237) NOTE MG/DL RISK RATIO LDL/HDL (test code = (NOTE) RATIO 2238) HEMOGLOBIN [id number] 00:00:00 Test Item Value Reference Range Interpretation Comments HEMOGLOBIN A1c (test code = 46483) 10.6 % HEMOGLOBIN [id number] 00:00:00 Test Item Value Reference Range Interpretation Comments HEMOGLOBIN A1c (test code = 19497) 10.6 % HEMOGLOBIN [id number] 00:00:00 Test Item Value Reference Range Interpretation Comments HEMOGLOBIN A1c (test code = 86707) 10.6 % COMPREHENSIVE METABOLIC [id number] 00:00:00 Test Item Value Reference Range Interpretation Comments GLUCOSE (test code = 2217) 352 MG/DL BUN (test code = 2208) 9 MG/DL CREATININE (test code = 2214) 0.98 MG/DL eGFR AMER. (test code 109 ML/MIN/1.73 = 21256) eGFR NON- AMER. (test 94 ML/MIN/1.73 code = 19403) CALC BUN/CREAT (test code = 9 RATIO [...] code = 2219) 11 U/L COMPREHENSIVE METABOLIC [id number] 00:00:00 Test Item Value Reference Range Interpretation Comments GLUCOSE (test code = 2217) 352 MG/DL BUN (test code = 2208) 9 MG/DL CREATININE (test code = 2214) 0.98 MG/DL eGFR AMER. (test code 109 ML/MIN/1.73 = 32362) eGFR NON- AMER. (test 94 ML/MIN/1.73 code = 03575) CALC BUN/CREAT (test code = 9 RATIO 2235) SODIUM (test code = 2231) 137 MEQ/L POTASSIUM (test code = 2228) 3.9 MEQ/L CHLORIDE (test code = 2215) 97 MEQ/L CARBON DIOXIDE (test code = 26 MEQ/L 2205) CALCIUM (test code = 2208) 8.9 MG/DL PROTEIN, TOTAL (test code = 7.8 G/DL 2228) ALBUMIN (test code = 2200) 4.8 G/DL CALC GLOBULIN (test code = 3.0 G/DL 2239) CALC A/G RATIO (test code = 1.6 RATIO 2233) BILIRUBIN, TOTAL (test code = 0.3 MG/DL 2206) ALKALINE PHOSPHATASE (test 79 U/L code = 2203) AST (test code = 2218) 14 U/L ALT (test code = 221) 11 U/L
[2022-10-01 01:28] LABS: Absolute Lymphocytes (CBC) 1.3 K/uL (0.7-4.9); Hematocrit 42.6 % (39.6-49.0); Lymphocytes % 19.3 % (15.3-44.8); MCV 93.3 fL (80-100); MPV 9.6 fL (7.6-11.3); RBC Red Blood Cell Count 4.57 M/uL (4.33-5.43)
[2022-10-01] MEDS ORDERED: MORPHINE 4 MG/ML SYR ONE (01:31)
[2022-10-01 01:39] LABS: Albumin 3.7 g/dL (3.4-5.0); Bilirubin Total 0.7 mg/dL (0.2-1.0); Magnesium 2.5 mg/dL (1.6-2.4); Potassium 4.1 mmol/L (3.5-5.1); Protein, Total 7.3 g/dL (6.4-8.2); Troponin High Sensitivity 12.2 pg/mL (<58.9)
--- NOTE | 2022-10-01 05:33 | ER ---
Nurse's Notes [facility] Name: Yan Camargo Age: 47 yrs Sex: Male : 1975 Arrival Date: 10/01/2022 Time: 00:35 Bed 5 Private MD: Diagnosis: Chest pain, unspecified Presentation: 10/01 00:35 Chief complaint: EMS states: "He was having chest pain on the right side that radiates tw5 to the middle. We gave him 324 mg ASA.". 00:35 Method Of Arrival: EMS: [facility] tw5 00:44 Coronavirus screen: Vaccine status: Patient reports being unvaccinated. Ebola Screen: tw5 Patient negative for fever greater than or equal to 101.5 degrees Fahrenheit, and additional compatible Ebola Virus Disease symptoms Patient denies exposure to infectious person. Patient denies travel to an Ebola-affected area in the 21 days before illness onset. Initial Sepsis Screen: Does the patient meet any 2 criteria? No. Patient's initial sepsis screen is negative. Does the patient have a suspected source of infection? No. Patient's initial sepsis screen is negative. Risk Assessment: Do you want to hurt yourself or someone else? Patient reports no desire to harm self or others. Onset of symptoms was September 30, 2022 at 23:15. 00:44 Acuity: MARTIR 3 tw5 Triage Assessment: 00:50 General: Appears in no apparent distress. Behavior is calm, cooperative, appropriate tw5 for age. Pain: Pain currently is 4 out of 10 on a pain scale. Cardiovascular: Capillary refill. Historical: - Allergies: 00:48 No Known Allergies; tw5 - PMHx: 00:48 CHF; Diabetes - IDDM; HIV; Hypertensive disorder; Angina pectoris; tw5 - PSHx: 00:48 Coronary artery bypass graft; tw5 - Immunization history:: Flu vaccine is up to date. - Social history:: Smoking status: Patient reports the use of cigarette tobacco products, smokes one pack cigarettes per day. Screenin:48 [facility] ED Fall Risk Assessment (Adult) History of falling in the last 3 months, tw5 including since admission Yes- physiologic fall (2 pts). Abuse screen: Denies threats or abuse. Denies injuries from another. Nutritional screening: No deficits noted. Tuberculosis screening: No symptoms or risk factors identified. Assessment: 00:46 General: Reports "I was sitting on at dinning room table getting ready for bed and then tw5 out of nowhere it hit me that I was having chest pain. It started on my right side and it feels like it settles in my stomach. It actually went away so I went to go lay down and right when I laid down the pain hit me 10 x harder.". Pain: Complains of pain in right breast Pain radiates to xiphoid area and mid-sternal area Pain currently is 4 out of 10 on a pain scale. Pain: Pain began 2 hours ago. Neuro: Level of Consciousness is awake, alert, obeys commands, Oriented to person, place, time, situation. Cardiovascular: Capillary refill < 3 seconds is brisk in bilateral fingers. 01:32 Pain: Pain currently is 6 out of 10 on a pain scale. tw5 01:34 General: Patient provided socks per request. tw5 Vital Signs: 00:44 BP 114 / 63; Pulse 77; Resp 18; Temp 98.7; Pulse Ox 96% on R/A; Weight 90.72 kg; Height tw5 5 ft. 6 in. (167.64 cm); Pain 6/10; 01:09 BP 102 / 52; Pulse 72; Resp 18; Pulse Ox 100% on R/A; tw5 03:12 BP 113 / 66; Pulse 73; Resp 14 S; Pulse Ox 94% on R/A; as6 04:20 BP 104 / 63; Pulse 72; Resp 14 S; Pulse Ox 93% on R/A; as6 05:38 BP 93 / 58; Pulse 78; Resp 17 S; Pulse Ox 94% on R/A; as6 00:44 Body Mass Index 32.28 (90.72 kg, 167.64 cm) tw5 ED Course: 00:35 Patient arrived in ED. tw5 00:35 Lotus Aponte MD is Attending Physician. sd2 00:44 Maddi Chambers is Primary Nurse. tw5 00:46 Triage completed. tw5 00:48 Patient has correct armband on for positive identification. Client placed on continuous tw5 cardiac and pulse oximetry monitoring. NIBP monitoring applied. 00:51 Patient maintains SpO2 saturation greater than 95% on room air. tw5 01:07 Initial lab(s) drawn, by me, sent to lab. Inserted saline lock: 20 gauge in right tw5 antecubital area, using aseptic technique. Blood collected. 01: BNP Sent. tw12 12: Magnesium Sent. tw12 12: Troponin High Sensitivity Sent. : CMP Sent. : CBC with Diff Sent. : Door closed. Noise minimized. Visitors limited. Lights dimmed. Warm blanket given. tw Verbal reassurance given. : BNP Sent. tw12 12: Troponin High Sensitivity Sent. tw12 12: Magnesium Sent. tw12 12: CBC with Diff Sent. : CMP Sent. tw12 12:41 XRAY Chest (1 view) In Process Unspecified. EDMS 05:41 Arm band placed on. as 05:58 No provider procedures requiring assistance completed. IV discontinued, intact, tw5 bleeding controlled, No redness/swelling at site. Pressure dressing applied. Administered Medications: 01:31 Drug: morphine 4 mg Route: IVP; Infused Over: 4 mins; Site: right antecubital; tw Medication: 00:48 VIS not applicable for this client. Outcome: 05:32 Discharge ordered by . sd2 05:58 Discharged to home ambulatory. tw 05:58 Condition: good 05:58 Discharge instructions given to patient, Instructed on discharge instructions, follow up and referral plans. Demonstrated understanding of instructions, follow-up care. 05:59 Patient left the ED. Signatures: Dispatcher [employer] OSEI Maddi Chambers tw5 Kev Laureano RN RN as6 Lotus Aponte MD MD sd2
--- NOTE | 2022-10-01 05:33 | EDPHYS ---
Physician Documentation [facility] Name: Yan Camargo Age: 47 yrs Sex: Male : 1975 Arrival Date: 10/01/2022 Time: 00:35 Bed 5 Private MD: ED Physician Lotus Aponte HPI: 10/01 01:10 This 47 yrs old Male presents to ER via EMS with complaints of Chest Pain. sd2 01:10 47-year-old male presents via EMS with chief complaint of right-sided chest pain that sd2 radiates into his mid abdomen. He reports the pain has been intermittent since approximately 10 PM this evening and is now currently present but not as severe at a 6 out of 10. He reports he has not had similar pain to this previously and this does not feel like his prior heart issues. He is currently on a baby aspirin daily but was given a full dose of aspirin with EMS prior to arrival. He denies any associated shortness of breath, nausea, vomiting or diaphoresis.. Historical: - Allergies: 00:48 No Known Allergies; tw5 - PMHx: 00:48 CHF; Diabetes - IDDM; HIV; Hypertensive disorder; Angina pectoris; tw5 - PSHx: 00:48 Coronary artery bypass graft; tw5 - Immunization history:: Flu vaccine is up to date. - Social history:: Smoking status: Patient reports the use of cigarette tobacco products, smokes one pack cigarettes per day. ROS: 01:10 Constitutional: Negative for fever, chills, and weight loss, Eyes: Negative for injury, sd2 pain, redness, and discharge, Cardiovascular: Negative for chest pain, palpitations, and edema, Respiratory: Negative for shortness of breath, cough, wheezing. Abdomen/GI: Negative for abdominal pain, nausea, vomiting, diarrhea. Back: Negative for injury and pain, MS/Extremity: Negative for injury and deformity, Skin: Negative for injury, rash, and discoloration, Neuro: Negative for headache, numbness and tingling. Exam: 01:10 Constitutional: This is a well developed, well nourished patient who is awake, alert, sd2 and in no acute distress. Head/Face: Normocephalic, atraumatic. Eyes: EOMI, normal conjunctiva bilaterally Chest/axilla: Normal chest wall appearance and motion. Nontender with no deformity. Cardiovascular: Regular rate and rhythm with a normal S1 and S2. No gallops, murmurs, or rubs. 2+ distal pulses. Respiratory: Lungs have equal breath sounds bilaterally, clear to auscultation and percussion. No rales, rhonchi or wheezes noted. No increased work of breathing, no retractions or nasal flaring. Abdomen/GI: Soft, non-tender, with normal bowel sounds. No guarding or rebound. No evidence of tenderness throughout. Skin: Warm, dry with normal turgor. Normal color with no rashes, no lesions, and no evidence of cellulitis. MS/ Extremity: Pulses equal, no cyanosis. Neurovascular intact. Full, normal range of motion. Ambulatory without difficulty. Neuro: Awake and alert, GCS 15, oriented to person, place, time, and situation. Cranial nerves II-XII grossly intact. Motor strength 5/5 in all extremities. Sensory grossly intact. Cerebellar exam normal. Normal gait. 01:30 ECG was reviewed by the Attending Physician. NSR, rate 71, occasional PVCs, no STEMI sd2 criteria Vital Signs: 00:44 BP 114 / 63; Pulse 77; Resp 18; Temp 98.7; Pulse Ox 96% on R/A; Weight 90.72 kg; Height tw5 5 ft. 6 in. (167.64 cm); Pain 6/10; 01:09 BP 102 / 52; Pulse 72; Resp 18; Pulse Ox 100% on R/A; tw5 03:12 BP 113 / 66; Pulse 73; Resp 14 S; Pulse Ox 94% on R/A; as6 04:20 BP 104 / 63; Pulse 72; Resp 14 S; Pulse Ox 93% on R/A; as6 05:38 BP 93 / 58; Pulse 78; Resp 17 S; Pulse Ox 94% on R/A; as6 00:44 Body Mass Index 32.28 (90.72 kg, 167.64 cm) tw5 MDM: 00:36 Patient medically screened. sd2 01:10 Differential diagnosis: Differential diagnosis includes but is not limited to: ACS, sd2 DVT/PE, pneumothorax, dissection, musculoskeletal, anxiety, anemia, electrolyte abnormality, pneumonia, CHF, COPD among others. The patient was not given aspirin in the Emergency Department. Administered by EMS. Data reviewed: vital signs, nurses notes, EMS record. 02 00:51 Order name: CBC with Diff; Complete Time: 01:42 10/01 00:51 Order name: CMP; Complete Time: 01:42 10/01 00:51 Order name: Magnesium; Complete Time: 01:42 10/01 00:51 Order name: Troponin High Sensitivity; Complete Time: 01:42 10/01 00:51 Order name: BNP; Complete Time: 01:42 10/01 04:03 Order name: Troponin HS; Complete Time: 05:32 10/01 00:51 Order name: EKG - Nurse/Tech; Complete Time: 01:34 10/01 00:51 Order name: XRAY Chest (1 view) sd2 Administered Medications: 01:31 Drug: morphine 4 mg Route: IVP; Infused Over: 4 mins; Site: right antecubital; tw5 Disposition Summary: 10/01/22 05:32 Discharge Ordered Location: Home sd2 Problem: new sd2 Symptoms: are resolved sd2 Condition: Stable sd2 Diagnosis - Chest pain, unspecified sd2 Followup: sd2 - With: Private Physician - When: 2 - 3 days - Reason: Recheck today's complaints, Continuance of care, Re-evaluation by your physician Discharge Instructions: - Discharge Summary Sheet sd2 - Nonspecific Chest Pain, Adult sd2 Forms: - Medication Reconciliation Form sd2 - Thank You Letter sd2 - Antibiotic Education sd2 - Work release form eb - Prescription Opioid Use sd2 Signatures: Dispatcher [employer] Maddi Prado tw5 Lotus Aponte MD MD sd2
[2022-10-01 06:42] VITALS: TEMP 98.7
[2022-10-01 06:52] VITALS: BP 93/58; O2SAT 94
--- NOTE | 2022-10-03 11:15 | RAD REPORT ---
EXAM DESCRIPTION: RAD - Chest Single View - 10/01/2022 1:38 am CLINICAL HISTORY: CHEST PAIN COMPARISON: 07/19/2022 FINDINGS: Single frontal radiograph view of the chest. Cardiomediastinal silhouette: Cardiomegaly. Prior median sternotomy. Leads overlie the chest. Lungs: Perivascular congestion. No pneumothorax or large effusion. Bones: No acute osseous abnormality. Upper abdomen: No abnormality identified. IMPRESSION: 1. Cardiomegaly with pulmonary vascular congestion. Electronically signed by: Ellis Bro 10/01/2022 2:47 AM DYNAMOMETER TESTER ENGINE Due to temporary technical issues with the PACS/Fluency reporting system, reports are being signed by the in house radiologists without review as a courtesy to insure prompt reporting. The interpreting radiologist is fully responsible for the content of the report.
--- NOTE | 2022-10-03 12:43 | EKG ---
Test Date: 2022-10-01 Test Time: 01:23:00 Shift Supervisor: TANESHA MEASUREMENT RESULTS: Intervals: Rate: 71 IA: 164 QRSD: 102 QT: 402 QTc: 436 [place]: P: 47 IA: 164 QRS: -8 T: 100 INTERPRETIVE STATEMENTS: Sinus rhythm with occasional premature ventricular complexes Possible Left atrial enlargement Anteroseptal infarct, age undetermined T wave abnormality, consider lateral ischemia Abnormal ECG Compared to ECG 07/20/2022 10:34:45 Ventricular premature complex(es) now present T-wave abnormality now present Possible ischemia now present Myocardial infarct finding still present Electronically Signed On 10-03-22 12:37:43 MACHINE WEDGER by Dragan Collins
== END 2022-10-01 05:59 | disposition home or self-care (01) ==
LOC: ER 00:34
DX: R07.89 Other chest pain (principal); I10 Essential (primary) hypertension; F17.210 Nicotine dependence, cigarettes, uncomplicated; I50.9 Heart failure, unspecified; Z95.1 Presence of aortocoronary bypass graft; Z21 Asymptomatic human immunodeficiency virus [HIV] infection status
CPT/HCPCS: 36415; 71045; 80053; 83735; 83880; 84484; 85025; 93005; 96374; 99284